=== PATIENT | female | born 1980 | race American Indian/Alaskan Native ===

== ENCOUNTER 2016-10-27 17:58 | Emergency (ER) | payer MEDICAID ==
[2016-10-27 22:50] LABS: Urine Drugs of Abuse Note Disclamer
--- NOTE | 2016-10-27 22:53 | Emergency Department Report ---
HPI - General Chief Complaint: Psych Time Seen by Provider: 10/27/16 22:05 - HPI HPI: [facility] The patient is a 36-year-old female presenting with a chief complaint of stress. Patient states for 1 month she has been under a lot of stress and had "a lot of family problems." The patient states she is feeling pressure and feels like she is being bullied. Patient was recently sent to an inpatient psychiatric facility under [facility] for suicidal ideation. The patient was discharged and reportedly went back to live with her boyfriend subsequently kicked her out. Patient currently denies suicidal ideation. Patient denies auditory or visual hallucinations. Location: Mental state Duration: [see above] Quality: Stress Severity: Moderate Modifying factors: [see above] Context: [see above] Mode of transportation: [not driving] ED Past Medical Hx - Past Medical History Previous Medical History?: No Hx Psychiatric Treatment: Yes (PTSD, BIPOLAR, ADHD,anxiety) Hx Asthma: Yes (seasonal) - Surgical History Past Surgical History?: No Additional Surgical History: D&C. breast implants. wisdom teeth removed - Family History Family history: no significant - Social History Smoking Status: Never Smoker Substance Use Type: None - Medications Home Medications: Home Medications Medication Instructions Recorded Confirmed Last Taken Type QUEtiapine [SEROquel] 200 mg PO QHS MDD 400 09/05/16 10/14/16 10/13/16 History Efavirenz/Emtricitab/Tenofovir 600 mg PO QDAY 10/14/16 10/14/16 10/13/16 History [Atripla Tablet] Ibuprofen [Advil 100 MG tab] 200 mg PO QHS PRN 10/14/16 10/14/16 10/13/16 History Prednisone [predniSONE 5 mg (6-Day 5 mg PO .TAPER 10/14/16 10/14/16 10/13/16 History Pack, 21 Tabs)] ED Review of Systems ROS: Stated complaint: HOMICIDAL Other details as noted in HPI Comment: All other systems reviewed and negative Constitutional: denies: chills, fever Eyes: denies: eye pain, eye discharge, vision change ENT: denies: ear pain, throat pain Respiratory: denies: cough, shortness of breath, wheezing Cardiovascular: denies: chest pain, palpitations Endocrine: no symptoms reported Gastrointestinal: denies: abdominal pain, nausea, diarrhea Genitourinary: denies: urgency, dysuria, discharge Musculoskeletal: denies: back pain, joint swelling, arthralgia Skin: denies: rash, lesions Neurological: denies: headache, weakness, paresthesias Psychiatric: other (stress). denies: auditory hallucinations, visual hallucinations, suicidal thoughts Hematological/Lymphatic: denies: easy bleeding, easy bruising Physical Exam - Physical Exam Vital Signs: Vital Signs 10/27/16 10/27/16 18:08 19:43 Temperature 98.6 F 98 F Pulse Rate 110 H 102 H Respiratory 22 14 Rate Blood Pressure 162/104 Blood Pressure 131/89 [Left] O2 Sat by Pulse 99 99 Oximetry Physical Exam: GENERAL: The patient is well-developed well-nourished female sitting in chair not appearing to be in acute distress. [] HEENT: Normocephalic. Atraumatic. Extraocular motions are intact. Patient has moist mucous membranes. NECK: Supple. Trachea Midline CHEST/LUNGS: Clear to auscultation. There is no respiratory distress noted. HEART/CARDIOVASCULAR: Regular. There is no tachycardia. There is no gallop rub or murmur. ABDOMEN: Abdomen is soft, nontender. Patient has normal bowel sounds. There is no abdominal distention. SKIN: There is no rash. There is no edema. There is no diaphoresis. NEURO: The patient is awake, alert, and oriented. The patient is cooperative. The patient has normal speech MUSCULOSKELETAL: There is no evidence of acute injury. ED Course Vital Signs 10/27/16 10/27/16 18:08 19:43 Temperature 98.6 F 98 F Pulse Rate 110 H 102 H Respiratory 22 14 Rate Blood Pressure 162/104 Blood Pressure 131/89 [Left] O2 Sat by Pulse 99 99 Oximetry ED Medical Decision Making - Lab Data Result diagrams: 10/27/16 17:35 10/27/16 22:44 - Medical Decision Making The patient was seen and evaluated by mental health retail wireless sales consultant (see mental health assessors note). Patient does not meet inpatient criteria and is currently without suicidal ideation. The patient's main concern is her homelessness. Awaiting social work consult. Final dispo per social work - Differential Diagnosis stress Critical care attestation.: If time is entered above; I have spent that time in minutes in the direct care of this critically ill patient, excluding procedure time. ED Disposition Clinical Impression: Stress, Homelessness Disposition: DISCHARGED TO HOME OR SELFCARE Is pt being admited?: No Does the pt Need Aspirin: No Condition: Stable Referrals: PRIMARY CARE,MD [Primary Care Provider] - 3-5 Days Time of Disposition: 04:49 (dispo per Social Work)
[2016-10-27 22:59] LABS: Basophils % (Auto) 0.3 % (0.0-1.8); Eosinophils % (Auto) 0.9 % (0.0-4.3); Hematocrit 33.4 % (30.3-42.9); Mean Corpuscular HGB Conc 33 % (30-34); Mean Corpuscular Volume 78 fl (79-97); Platelet Count 393 K/mm3 (140-440); Red Blood Count 4.29 M/mm3 (3.65-5.03); Red Cell Distribution Width 15.9 % (13.2-15.2); White Blood Count 7.5 K/mm3 (4.5-11.0)
[2016-10-27 22:59] LABS: Bilirubin,Urine NEG (Negative); Blood,Urine NEG (Negative); Ketones,Urine NEG (Negative); Leukocyte Esterase,Urine NEG (Negative); Nitrite,Urine NEG (Negative); Protein,Urine <15 mg/dL mg/dL (Negative); RBC,Urine < 1.0 /HPF (0.0-6.0); Urobilinogen,Urine < 2.0 mg/dL (<2.0)
[2016-10-27 23:01] LABS: Mean Corpuscular Hemoglobin 26 pg (28-32)
[2016-10-27 23:18] LABS: BUN/Creatinine Ratio 12.85; Blood Urea Nitrogen 9 mg/dL (7-17); Carbon Dioxide 24 mmol/L (22-30); Chloride 97.4 mmol/L (98-107); Glucose 101 mg/dL (65-100); Potassium 3.5 mmol/L (3.6-5.0); Sodium 137 mmol/L (137-145)
[2016-10-27 23:41] LABS: Anion Gap 19 mmol/L
[2016-10-28] MEDS ORDERED: VISTARIL ONE (02:02)
[2016-10-28] MEDS ORDERED: VISTARIL PO ONE (02:08)
[2016-10-28 07:59] VITALS: BP 101/52
== END 2016-10-28 21:09 | disposition home or self-care (01) ==
LOC: EEVIPCON 17:58 → ED 17:58
DX: F43.9 Reaction to severe stress, unspecified (principal); Z59.0 Homelessness; F31.9 Bipolar disorder, unspecified; F41.9 Anxiety disorder, unspecified; J45.909 Unspecified asthma, uncomplicated
CPT/HCPCS: 36415; 80048; 80307; 81001; 81025; 85025; 99284; G0480; 80320; Q0177

== ENCOUNTER 2016-11-01 16:30 | Emergency (ER) | payer MEDICAID ==
--- NOTE | 2016-11-01 17:31 | Emergency Department Report ---
Chief Complaint: Anxiety Stated Complaint: SOB Time Seen by Provider: 11/01/16 17:29 - HPI History of Present Illness: 36 y/o female with history of bipolar is her because of anxiety . She denies any suicidal homicidal ideation. Patient states she is needed a medical evaluation because of her bipolar has her depressed. - ROS Review of Systems: per HPI - Exam Vital Signs: Vital Signs 11/01/16 17:17 Temperature 98.2 F Pulse Rate 112 H Respiratory 20 Rate Blood Pressure 141/93 O2 Sat by Pulse 97 Oximetry Physical Exam: GENERAL: The patient is well-developed and well-nourished. Patient is in NAD. HENT: Normocephalic. Atraumatic. Patient has moist mucous membranes. Throat: No erythema, swelling or exudates. EYES: Extraocular motions are intact, PERRL NECK: Supple. No meningitic signs are noted. There is no adenopathy noted. CHEST/LUNGS: Clear to auscultation bilaterally. No wheezing, rales or rhonchi noted. There is no respiratory distress noted. HEART/CARDIOVASCULAR: Regular rate and rhythm. Normal S1 S2. No murmurs, rubs , clicks, or gallops. ABDOMEN: Abdomen is soft, nontender.. Bowel sounds normoactive. There is no abdominal distention. Negative rebound tenderness. : Deferred. SKIN: There is no rash. There is no edema. There is no diaphoresis. NEURO: The patient is A&Ox3. The patient has no focal neurologic deficits. MUSCULOSKELETAL: There is no tenderness or deformity. There is no limitation range of motion. PSYCH: Pt has appropriate mood and affect. MSE screening note: Focused history and physical exam performed. Due to findings the following was ordered: ED Disposition for MSE Condition: Stable
[2016-11-01 18:34] LABS: Basophils % (Auto) 0.5 % (0.0-1.8); Eosinophils % (Auto) 0.6 % (0.0-4.3); Hematocrit 34.1 % (30.3-42.9); Hemoglobin 11.1 gm/dl (10.1-14.3); Mean Corpuscular HGB Conc 33 % (30-34); Mean Corpuscular Volume 78 fl (79-97); Platelet Count 430 K/mm3 (140-440); Red Blood Count 4.36 M/mm3 (3.65-5.03); Red Cell Distribution Width 16.3 % (13.2-15.2); White Blood Count 8.3 K/mm3 (4.5-11.0)
[2016-11-01 18:37] LABS: Mean Corpuscular Hemoglobin 25 pg (28-32)
[2016-11-01 18:55] LABS: BUN/Creatinine Ratio 12.85; Blood Urea Nitrogen 9 mg/dL (7-17); Calcium 9.1 mg/dL (8.4-10.2); Carbon Dioxide 24 mmol/L (22-30); Chloride 98.6 mmol/L (98-107); Glucose 110 mg/dL (65-100); Potassium 3.5 mmol/L (3.6-5.0); Sodium 137 mmol/L (137-145)
[2016-11-01 18:57] LABS: Anion Gap 18 mmol/L
[2016-11-02 08:00] VITALS: BP 145/90
[2016-11-02 08:01] LABS: Urine Drugs of Abuse Note Disclamer
[2016-11-02 08:17] LABS: Bilirubin,Urine NEG (Negative); Blood,Urine NEG (Negative); Ketones,Urine 20 mg/dL (Negative); Leukocyte Esterase,Urine NEG (Negative); Mucus,Urine FEW /HPF; Nitrite,Urine NEG (Negative); Protein,Urine <15 mg/dL mg/dL (Negative); Urobilinogen,Urine < 2.0 mg/dL (<2.0); WBC,Urine < 1.0 /HPF (0.0-6.0)
--- NOTE | 2016-11-02 08:32 | Emergency Department Report ---
HPI - General Chief Complaint: Anxiety Time Seen by Provider: 11/02/16 08:12 - HPI HPI: Room 3 The patient is a 36-year-old female presenting with a chief complaint of anxiety and homelessness. The patient was seen by myself on her last ED visit 10/27/2016. The patient was sent to a fci[facility]facility because of her homelessness. The patient states "I wouldn't send an animal to the place." When asked why she came to the emergency department today the patient states "umm......because it seems like people be joking with me and playing with me. It aint a joke." Location: Mental state Duration: see above Quality: Homelessness Severity: Moderate Modifying factors: see above Context: see above Mode of transportation: not driving ED Past Medical Hx - Past Medical History Previous Medical History?: Yes Hx Psychiatric Treatment: Yes (PTSD, BIPOLAR, ADHD,anxiety) Hx Asthma: Yes (seasonal) Hx HIV: Yes - Surgical History Past Surgical History?: Yes Additional Surgical History: D&C. breast implants. wisdom teeth removed - Family History Family history: no significant - Social History Smoking Status: Never Smoker Substance Use Type: Prescribed - Medications Home Medications: Home Medications Medication Instructions Recorded Confirmed Last Taken Type QUEtiapine [SEROquel] 200 mg PO QHS MDD 400 09/05/16 10/14/16 10/13/16 History Efavirenz/Emtricitab/Tenofovir 600 mg PO QDAY 10/14/16 10/14/16 10/13/16 History [Atripla Tablet] Ibuprofen [Advil 100 MG tab] 200 mg PO QHS PRN 10/14/16 10/14/16 10/13/16 History Prednisone [predniSONE 5 mg (6-Day 5 mg PO .TAPER 10/14/16 10/14/16 10/13/16 History Pack, 21 Tabs)] ED Review of Systems ROS: Stated complaint: SOB Other details as noted in HPI Comment: All other systems reviewed and negative Constitutional: denies: chills, fever Eyes: denies: eye pain, eye discharge, vision change ENT: denies: ear pain, throat pain Respiratory: denies: cough, shortness of breath, wheezing Cardiovascular: denies: chest pain, palpitations Endocrine: no symptoms reported Gastrointestinal: denies: abdominal pain, nausea, diarrhea Genitourinary: denies: urgency, dysuria, discharge Musculoskeletal: denies: back pain, joint swelling, arthralgia Skin: denies: rash, lesions Psychiatric: anxiety Hematological/Lymphatic: denies: easy bleeding, easy bruising Physical Exam - Physical Exam Vital Signs: Vital Signs 11/01/16 11/02/16 11/02/16 17:17 03:17 07:48 Temperature 98.2 F 97.4 F L 98.9 F Pulse Rate 112 H 112 H 113 H Respiratory 20 18 18 Rate Blood Pressure 141/93 144/94 152/87 Blood Pressure [Left] O2 Sat by Pulse 97 100 95 Oximetry 11/02/16 11/02/16 07:57 07:58 Temperature 98.3 F 98 F Pulse Rate 79 51 L Respiratory 16 20 Rate Blood Pressure 162/86 Blood Pressure 145/90 [Left] O2 Sat by Pulse 99 98 Oximetry Physical Exam: GENERAL: The patient is well-developed well-nourished female sitting on a bed not appearing to be in acute distress. [] HEENT: Normocephalic. Atraumatic. Extraocular motions are intact. Patient has moist mucous membranes. NECK: Supple. No meningitic signs are noted. Trachea midline CHEST/LUNGS: Clear to auscultation. There is no respiratory distress noted. HEART/CARDIOVASCULAR: Regular. There is no tachycardia. There is no gallop rub or murmur. ABDOMEN: Abdomen is soft, nontender. Patient has normal bowel sounds. There is no abdominal distention. SKIN: There is no rash. There is no edema. There is no diaphoresis. NEURO: The patient is awake, alert, and oriented. The patient is cooperative. The patient has normal speech MUSCULOSKELETAL: There is no evidence of acute injury. ED Course Vital Signs 11/01/16 11/02/16 11/02/16 17:17 03:17 07:48 Temperature 98.2 F 97.4 F L 98.9 F Pulse Rate 112 H 112 H 113 H Respiratory 20 18 18 Rate Blood Pressure 141/93 144/94 152/87 Blood Pressure [Left] O2 Sat by Pulse 97 100 95 Oximetry 11/02/16 11/02/16 07:57 07:58 Temperature 98.3 F 98 F Pulse Rate 79 51 L Respiratory 16 20 Rate Blood Pressure 162/86 Blood Pressure 145/90 [Left] O2 Sat by Pulse 99 98 Oximetry - Consultations Consultation #1: 11/02/16 10:32 Case discussed with mental health financial planning consultant-patient does not meet inpatient criteria Consultation #2: 11/02/16 10:32 Case discussed with school social worker-patient is willing to go to Housing facility she was sent to previously ED Medical Decision Making - Lab Data Result diagrams: 11/01/16 18:25 11/01/16 18:25 Laboratory Tests 11/01/16 11/01/16 11/01/16 18:25 18:25 18:25 WBC 8.3 RBC 4.36 Hgb 11.1 Hct 34.1 MCV 78 L MCH 25 L MCHC 33 RDW 16.3 H Plt Count 430 Lymph % (Auto) 22.2 [place] % (Auto) 13.1 H Eos % (Auto) 0.6 Baso % (Auto) 0.5 Lymph # 1.8 [place] # 1.1 H Eos # 0.1 Baso # 0.0 Seg Neutrophils % 63.6 Seg Neutrophils # 5.3 Sodium 137 Potassium 3.5 L Chloride 98.6 Carbon Dioxide 24 Anion Gap 18 BUN 9 Creatinine 0.7 Estimated GFR > 60 BUN/Creatinine Ratio 12.85 Glucose 110 H Calcium 9.1 HCG, Quant Urine Color Urine Turbidity Urine pH Ur Specific [place] Urine Protein Urine Glucose (UA) Urine Ketones Urine Blood Urine Nitrite Urine Bilirubin Urine Urobilinogen Ur Leukocyte Esterase Urine WBC (Auto) Urine RBC (Auto) U Epithel Cells (Auto) Urine Mucus Ur Amphetamines Screen Plasma/Serum Alcohol < 0.01 11/01/16 11/02/16 11/02/16 18:25 07:58 07:58 WBC RBC Hgb Hct MCV MCH MCHC RDW Plt Count Lymph % (Auto) [place] % (Auto) Eos % (Auto) Baso % (Auto) Lymph # [place] # Eos # Baso # Seg Neutrophils % Seg Neutrophils # Sodium Potassium Chloride Carbon Dioxide Anion Gap BUN Creatinine Estimated GFR BUN/Creatinine Ratio Glucose Calcium HCG, Quant < 2 Urine Color Yellow Urine Turbidity Clear Urine pH 5.0 Ur Specific [place] 1.019 Urine Protein <15 mg/dl Urine Glucose (UA) Neg Urine Ketones 20 Urine Blood Neg Urine Nitrite Neg Urine Bilirubin Neg Urine Urobilinogen < 2.0 Ur Leukocyte Esterase Neg Urine WBC (Auto) < 1.0 Urine RBC (Auto) 1.0 U Epithel Cells (Auto) 1.0 Urine Mucus Few Ur Amphetamines Screen Presumptive positive Plasma/Serum Alcohol - Differential Diagnosis homelessness Critical care attestation.: If time is entered above; I have spent that time in minutes in the direct care of this critically ill patient, excluding procedure time. ED Disposition Clinical Impression: Homeless Disposition: DISCHARGED TO HOME OR SELFCARE Is pt being admited?: No Does the pt Need Aspirin: No Condition: Stable Referrals: PRIMARY CARE, [Primary Care Provider] - 3-5 Days Time of Disposition: 08:32 (awaiting school social worker dispo)
== END 2016-11-02 10:40 | disposition home or self-care (01) ==
LOC: ED 16:30
DX: F41.9 Anxiety disorder, unspecified (principal); Z95.0 Presence of cardiac pacemaker; F32.9 Major depressive disorder, single episode, unspecified; F90.9 Attention-deficit hyperactivity disorder, unspecified type; J45.909 Unspecified asthma, uncomplicated; Z21 Asymptomatic human immunodeficiency virus [HIV] infection status; Z88.8 Allergy status to other drugs, medicaments and biological substances
CPT/HCPCS: 36415; 80048; 80307; 81001; 84702; 85025; 99284; G0480; 80320

== ENCOUNTER 2017-06-19 12:19 | Emergency (ER) | payer MEDICAID ==
[2017-06-19 12:27] VITALS: BP 121/65
[2017-06-19 12:55] LABS: Basophils % (Auto) 0.5 % (0.0-1.8); Eosinophils % (Auto) 2.3 % (0.0-4.3); Hematocrit 31.7 % (30.3-42.9); Mean Corpuscular HGB Conc 32 % (30-34); Mean Corpuscular Volume 78 fl (79-97); Platelet Count 393 K/mm3 (140-440); Red Blood Count 4.09 M/mm3 (3.65-5.03); Red Cell Distribution Width 18.3 % (13.2-15.2); White Blood Count 5.9 K/mm3 (4.5-11.0)
[2017-06-19 13:05] LABS: Mean Corpuscular Hemoglobin 24 pg (28-32)
[2017-06-19 13:08] LABS: Anion Gap 16 mmol/L; BUN/Creatinine Ratio 23.33; Blood Urea Nitrogen 14 mg/dL (7-17); Calcium 8.7 mg/dL (8.4-10.2); Carbon Dioxide 25 mmol/L (22-30); Chloride 103.6 mmol/L (98-107); Glucose 75 mg/dL (65-100); Potassium 3.9 mmol/L (3.6-5.0); Sodium 141 mmol/L (137-145)
--- NOTE | 2017-06-23 00:15 | ED Elopement Review ---
ED Pt Elopement review - Results review Lab results: Laboratory Tests 06/19/17 06/19/17 06/19/17 12:32 12:32 12:32 WBC RBC Hgb Hct MCV MCH MCHC RDW Plt Count Lymph % (Auto) [place] % (Auto) Eos % (Auto) Baso % (Auto) Lymph # [place] # Eos # Baso # Seg Neutrophils % Seg Neutrophils # Sodium 141 Potassium 3.9 Chloride 103.6 Carbon Dioxide 25 Anion Gap 16 BUN 14 Creatinine 0.6 L Estimated GFR > 60 BUN/Creatinine Ratio 23.33 Glucose 75 Calcium 8.7 HCG, Qual Negative Plasma/Serum Alcohol < 0.01 06/19/17 12:32 WBC 5.9 RBC 4.09 Hgb 10.0 L Hct 31.7 MCV 78 L MCH 24 L MCHC 32 RDW 18.3 H Plt Count 393 Lymph % (Auto) 35.2 H [place] % (Auto) 10.7 H Eos % (Auto) 2.3 Baso % (Auto) 0.5 Lymph # 2.1 [place] # 0.6 Eos # 0.1 Baso # 0.0 Seg Neutrophils % 51.3 Seg Neutrophils # 3.0 Sodium Potassium Chloride Carbon Dioxide Anion Gap BUN Creatinine Estimated GFR BUN/Creatinine Ratio Glucose Calcium HCG, Qual Plasma/Serum Alcohol - Call Back decision Pt Call Back Decision: Pt to F/U with PMD
== END 2017-06-20 01:00 | disposition left against medical advice (07) ==
LOC: ED 12:19
DX: M79.89 Other specified soft tissue disorders (principal); Z53.21 Procedure and treatment not carried out due to patient leaving prior to being seen by health care provider
CPT/HCPCS: 36415; 80048; 84703; 85025; G0480; 80320

== ENCOUNTER 2017-08-30 09:57 | Emergency (ER) | payer MEDICAID ==
[2017-08-30 10:05] VITALS: BP 139/84
[2017-08-30] MEDS ORDERED: DELTASONE PO ONE (11:18)
[2017-08-30] MEDS ORDERED: BENADRYL PO ONE (11:18)
--- NOTE | 2017-08-30 11:19 | Emergency Department Report ---
HPI - General Chief Complaint: Allergic Reaction Time Seen by Provider: 08/30/17 11:15 - HPI HPI: Patient is a 37-year-old female presents to the ED complaining of an allergic reaction to something she can contact her. Patient states she also has on her hand and the the back of her neck that she noticed today. Patient states she is also having pain at the site where it itches. Patient does not recall, to contact with any sick contacts. She denies fevers/chills/nausea/vomiting/abdominal pain chest pain or any other problems ED Past Medical Hx - Past Medical History Previous Medical History?: Yes Hx Psychiatric Treatment: Yes (PTSD, BIPOLAR, ADHD,anxiety) Hx Asthma: Yes (seasonal) Hx HIV: Yes - Surgical History Past Surgical History?: Yes Additional Surgical History: D&C. breast implants. wisdom teeth removed - Social History Smoking Status: Former Smoker Substance Use Type: Alcohol, Marijuana, Prescribed - Medications Home Medications: Home Medications Medication Instructions Recorded Confirmed Last Taken Type QUEtiapine [SEROquel] 200 mg PO QHS MDD 400 09/05/16 10/14/16 10/13/16 History Efavirenz/Emtricitab/Tenofovir 600 mg PO QDAY 10/14/16 10/14/16 10/13/16 History [Atripla Tablet] Ibuprofen [Advil 100 MG tab] 200 mg PO QHS PRN 10/14/16 10/14/16 10/13/16 History Prednisone [predniSONE 5 mg (6-Day 5 mg PO .TAPER 10/14/16 10/14/16 10/13/16 History Pack, 21 Tabs)] Ibuprofen [Motrin] 600 mg PO Q8H PRN #30 tablet 08/30/17 Unknown Rx Triamcinolone 0.1% [Kenalog 0.1% 1 applic TP TID #1 tube 08/30/17 Unknown Rx OINT] diphenhydrAMINE [Benadryl CAP] 25 mg PO QHS PRN #20 capsule 08/30/17 Unknown Rx ED Review of Systems ROS: Stated complaint: SORE THROAT,HIVES Other details as noted in HPI Constitutional: denies: chills, fever Eyes: denies: eye pain, eye discharge, vision change ENT: denies: ear pain, throat pain Respiratory: denies: cough, shortness of breath, wheezing Cardiovascular: denies: chest pain, palpitations Endocrine: no symptoms reported Gastrointestinal: denies: abdominal pain, nausea, diarrhea Genitourinary: denies: urgency, dysuria, discharge Musculoskeletal: denies: back pain, joint swelling, arthralgia Skin: pruritus. denies: rash, lesions Neurological: denies: headache, weakness, numbness, paresthesias, confusion Psychiatric: denies: anxiety, depression Hematological/Lymphatic: denies: easy bleeding, easy bruising Physical Exam - Physical Exam Vital Signs: Vital Signs 08/30/17 10:00 Temperature 97.9 F Pulse Rate 75 Respiratory 20 Rate Blood Pressure 139/84 O2 Sat by Pulse 100 Oximetry Physical Exam: GENERAL: Alert and oriented x3, no apparent distress, Normal Gait, atraumatic. HEAD: Head is normocephalic and a-traumatic. EYES: Extra ocular muscles are intact. Pupils are equal, round, and reactive to light and accommodation. EARS: symetrical, atraumatic, non tender, ear canal clear and moderate cerumen, tympanic membrance non inflamed. gross auditory nml bilaterally. NOSE: Nose symetrical, Nontender,Nares appeared normal. MOUTH:Mouth is well hydrated and without lesions. Tonsils nonerythematous or swollen, Uvula midline, Tongue not elevated. Mucous membranes are moist. Posterior pharynx clear, no exudate or lesions. Patent airways. NECK: Supple. Non edematous, No carotid bruits. No lymphadenopathy or thyromegaly. No C-spine tenderness LUNGS: Symetrical with respiration, No wheezing, no rales or crackles, CTAB. HEART: S1, S2 present, regular rate and rhythm without murmur, no rubs, no gallops. Non tender to palpation PSYCHIATRIC: Mood is congruent with affect, denies suicidal or homicidal ideations. SKIN: Warm and dry, occipital raised erythematous insect bite on the back of the neck left side. One raised erythematous lesion consistent with bite talat on left anterior foot No lesions, No ulceration or induration present. ED Course Vital Signs 08/30/17 10:00 Temperature 97.9 F Pulse Rate 75 Respiratory 20 Rate Blood Pressure 139/84 O2 Sat by Pulse 100 Oximetry ED Medical Decision Making - Medical Decision Making 37 year-old female presents with insect bite Patient received Toradol for pain, prednisone. Then the joint during her ED stay I discussed the patient to check bed and wash all sheets. I discussed patient to use medication as prescribed. Patient states she understands instructions given. Discussed the patient have any worsening symptoms or if any new symptoms to please return to the ED immediately. Critical care attestation.: If time is entered above; I have spent that time in minutes in the direct care of this critically ill patient, excluding procedure time. ED Disposition Clinical Impression: Insect bites Qualifiers: Encounter type: initial encounter Qualified Code(s): W57.XXXA - Bitten or stung by nonvenomous insect and other nonvenomous arthropods, initial encounter Disposition: TO HOME OR SELFCARE Is pt being admited?: No Does the pt Need Aspirin: No Condition: Stable Instructions: Urticaria (ED), Insect Bite or Sting (ED) Additional Instructions: apply ointment to affected areas. Follow-up with primary care physician as referred. If symptoms worsen please return to ED Prescriptions: diphenhydrAMINE [Benadryl CAP] 25 mg PO QHS PRN #20 capsule PRN Reason: Pain Ibuprofen [Motrin] 600 mg PO Q8H PRN #30 tablet PRN Reason: Pain Triamcinolone 0.1% [Kenalog 0.1% OINT] 1 applic TP TID #1 tube Referrals: PRIMARY CARE,MD [Primary Care Provider] - 3-5 Days [facility] [Outside] - 3-5 Days [facility] [Outside] - 3-5 Days [facility] [Outside] - 3-5 Days Forms: Accompanied Note, Work/School Release Form(ED) Time of Disposition: 13:00
[2017-08-30 11:54] LABS: Urine Drugs of Abuse Note Disclamer
[2017-08-30] MEDS ORDERED: TORADOL IM ONE (13:06)
== END 2017-08-30 13:33 | disposition home or self-care (01) ==
LOC: ED 09:57
DX: T78.40XA Allergy, unspecified, initial encounter (principal); F12.10 Cannabis abuse, uncomplicated; W57.XXXA Bitten or stung by nonvenomous insect and other nonvenomous arthropods, initial encounter; Y93.89 Activity, other specified; Y92.89 Other specified places as the place of occurrence of the external cause; Y99.8 Other external cause status
CPT/HCPCS: 80307; 81025; 96372; 99283; J1885; J7512

== ENCOUNTER 2017-08-30 21:43 | Emergency (ER) | payer MEDICAID ==
[2017-08-30 23:50] LABS: Anion Gap 24 mmol/L; BUN/Creatinine Ratio 13; Blood Urea Nitrogen 8 mg/dL (7-17); Carbon Dioxide 20 mmol/L (22-30); Chloride 101.7 mmol/L (98-107); Glucose 213 mg/dL (65-100); Potassium 4.2 mmol/L (3.6-5.0); Sodium 141 mmol/L (137-145)
[2017-08-31 00:06] LABS: Eosinophils % (Auto) 0.1 % (0.0-4.3)
[2017-08-31 00:11] LABS: Basophils % (Auto) 0.1 % (0.0-1.8); Hematocrit 35.3 % (30.3-42.9); Mean Corpuscular HGB Conc 31 % (30-34); Mean Corpuscular Hemoglobin 25 pg (28-32); Mean Corpuscular Volume 79 fl (79-97); Platelet Count 287 K/mm3 (140-440); Red Blood Count 4.47 M/mm3 (3.65-5.03); Red Cell Distribution Width 20.6 % (13.2-15.2); White Blood Count 8.9 K/mm3 (4.5-11.0)
[2017-08-31 06:39] VITALS: BP 102/51
[2017-08-31] MEDS ORDERED: LIDOCAINE VISCOUS 2% PO ONE (07:42)
[2017-08-31] MEDS ORDERED: ALUM-MAG HYDROX-SIMETH 200-200-20MG/5ML PO ONE (07:43)
[2017-08-31] MEDS ORDERED: ATARAX PO ONE (07:43)
--- NOTE | 2017-08-31 07:43 | Emergency Department Report ---
ED General Adult HPI - General Chief complaint: Dyspnea/Respdistress Stated complaint: SOB Time Seen by Provider: 08/31/17 07:35 Source: patient Mode of arrival: Stretcher Limitations: No Limitations - History of Present Illness Initial comments: Patient is a 37-year-old female past medical history schizophrenia who presents with chest pain and throat discomfort. Patient states that symptoms have been going on for the last couple of days. Patient's feels that she has some irritation in her throat and the pain is a 6 out of 10 shortly makes it worse nothing makes it better. She denies having any drooling. Patient denies having any trouble breathing. Patient states that her chest pain feels like someone jumping up and down her chest is located in the middle of her chest does not radiate. Patient denies any nausea or vomiting. She states that she' s had this problem before in the past. She has no significant family medical history Severity scale (0 -10): 10 - Related Data Home Medications Medication Instructions Recorded Confirmed Last Taken QUEtiapine [SEROquel] 200 mg PO QHS MDD 400 09/05/16 10/14/16 10/13/16 Efavirenz/Emtricitab/Tenofovir 600 mg PO QDAY 10/14/16 10/14/16 10/13/16 [Atripla Tablet] Ibuprofen [Advil 100 MG tab] 200 mg PO QHS PRN 10/14/16 10/14/16 10/13/16 Prednisone [predniSONE 5 mg (6-Day 5 mg PO .TAPER 10/14/16 10/14/16 10/13/16 Pack, 21 Tabs)] Previous Rx's Medication Instructions Recorded Last Taken Type Ibuprofen [Motrin] 600 mg PO Q8H PRN #30 tablet 08/30/17 Unknown Rx Triamcinolone 0.1% [Kenalog 0.1% 1 applic TP TID #1 tube 08/30/17 Unknown Rx OINT] diphenhydrAMINE [Benadryl CAP] 25 mg PO QHS PRN #20 capsule 08/30/17 Unknown Rx Naproxen 250 mg PO Q6HR #30 tablet 08/31/17 Unknown Rx Allergies Allergy/AdvReac Type Severity Reaction Status Date / Time influenza virus vaccine, Allergy Swelling Verified 08/31/17 07:55 specific [Influenza Virus Vacc,Specific] Sulfa (Sulfonamide Allergy Swelling Verified 08/31/17 07:55 Antibiotics) sulfamethoxazole Allergy Swelling Verified 08/31/17 07:55 [From Bactrim] trimethoprim [From Bactrim] Allergy Swelling Verified 08/31/17 07:55 ED Review of Systems ROS: Stated complaint: SOB Other details as noted in HPI Constitutional: denies: chills, fever Eyes: denies: eye pain, eye discharge, vision change ENT: throat pain. denies: ear pain Respiratory: denies: cough, shortness of breath, wheezing Cardiovascular: chest pain. denies: palpitations Endocrine: no symptoms reported Gastrointestinal: denies: abdominal pain, nausea, diarrhea Genitourinary: denies: urgency, dysuria, discharge Musculoskeletal: denies: back pain, joint swelling, arthralgia Skin: denies: rash, lesions Neurological: denies: headache, weakness, paresthesias Psychiatric: denies: anxiety, depression Hematological/Lymphatic: denies: easy bleeding, easy bruising ED Past Medical Hx - Past Medical History Previous Medical History?: Yes Hx Psychiatric Treatment: Yes (PTSD, BIPOLAR, ADHD,anxiety) Hx Asthma: Yes (seasonal) Hx HIV: Yes - Surgical History Past Surgical History?: Yes Additional Surgical History: D&C. breast implants. wisdom teeth removed - Social History Smoking Status: Never Smoker - Medications Home Medications: Home Medications Medication Instructions Recorded Confirmed Last Taken Type QUEtiapine [SEROquel] 200 mg PO QHS MDD 400 09/05/16 10/14/16 10/13/16 History Efavirenz/Emtricitab/Tenofovir 600 mg PO QDAY 10/14/16 10/14/16 10/13/16 History [Atripla Tablet] Ibuprofen [Advil 100 MG tab] 200 mg PO QHS PRN 10/14/16 10/14/16 10/13/16 History Prednisone [predniSONE 5 mg (6-Day 5 mg PO .TAPER 10/14/16 10/14/16 10/13/16 History Pack, 21 Tabs)] Ibuprofen [Motrin] 600 mg PO Q8H PRN #30 tablet 08/30/17 Unknown Rx Triamcinolone 0.1% [Kenalog 0.1% 1 applic TP TID #1 tube 08/30/17 Unknown Rx OINT] diphenhydrAMINE [Benadryl CAP] 25 mg PO QHS PRN #20 capsule 08/30/17 Unknown Rx Naproxen 250 mg PO Q6HR #30 tablet 08/31/17 Unknown Rx ED Physical Exam - General Limitations: No Limitations General appearance: alert, in no apparent distress - Head Head exam: Present: atraumatic, normocephalic - Eye Eye exam: Present: normal appearance - ENT ENT exam: Present: mucous membranes moist - Neck Neck exam: Present: normal inspection - Respiratory Respiratory exam: Present: normal lung sounds bilaterally. Absent: respiratory distress - Cardiovascular Cardiovascular Exam: Present: regular rate, normal rhythm. Absent: systolic murmur, diastolic murmur, rubs, gallop - GI/Abdominal GI/Abdominal exam: Present: soft, normal bowel sounds - Extremities Exam Extremities exam: Present: normal inspection - Back Exam Back exam: Present: normal inspection - Neurological Exam Neurological exam: Present: alert, oriented X3 - Psychiatric Psychiatric exam: Present: normal affect, normal mood - Skin Skin exam: Present: warm, dry, intact, normal color. Absent: rash ED Course Vital Signs 08/30/17 08/31/17 08/31/17 22:20 02:46 03:00 Temperature 98.7 F Pulse Rate 103 H Respiratory 20 Rate Blood Pressure 128/68 129/73 O2 Sat by Pulse 100 87 100 Oximetry 08/31/17 08/31/17 08/31/17 03:16 03:30 03:46 Temperature Pulse Rate Respiratory Rate Blood Pressure 129/73 129/73 129/73 O2 Sat by Pulse 97 100 100 Oximetry 08/31/17 08/31/17 08/31/17 04:00 04:16 04:30 Temperature Pulse Rate Respiratory Rate Blood Pressure 102/51 102/51 102/51 O2 Sat by Pulse 100 100 100 Oximetry 08/31/17 08/31/17 08/31/17 04:46 05:00 05:16 Temperature Pulse Rate Respiratory Rate Blood Pressure 102/51 102/51 102/51 O2 Sat by Pulse 100 100 100 Oximetry 08/31/17 08/31/17 08/31/17 05:30 05:46 06:00 Temperature Pulse Rate Respiratory Rate Blood Pressure 102/51 102/51 102/51 O2 Sat by Pulse 100 99 99 Oximetry 08/31/17 08/31/17 08/31/17 06:16 06:17 06:30 Temperature Pulse Rate Respiratory 20 Rate Blood Pressure 102/51 102/51 O2 Sat by Pulse 99 100 96 Oximetry 08/31/17 08/31/17 08/31/17 06:46 07:00 07:16 Temperature Pulse Rate Respiratory Rate Blood Pressure 102/51 102/51 102/51 O2 Sat by Pulse 100 99 97 Oximetry 08/31/17 08/31/17 07:30 07:38 Temperature 98.5 F Pulse Rate Respiratory Rate Blood Pressure 102/51 O2 Sat by Pulse 98 Oximetry ED Medical Decision Making - Lab Data Result diagrams: 08/30/17 23:11 08/30/17 23:11 Lab Results 08/30/17 08/30/17 08/30/17 Range/Units 23:11 23:11 23:11 WBC 8.9 (4.5-11.0) K/mm3 RBC 4.47 (3.65-5.03) M/mm3 Hgb 11.0 (10.1-14.3) gm/dl Hct 35.3 (30.3-42.9) % MCV 79 (79-97) fl MCH 25 L (28-32) pg MCHC 31 (30-34) % RDW 20.6 H (13.2-15.2) % Plt Count 287 (140-440) K/mm3 Lymph % (Auto) 10.2 L (13.4-35.0) % [place] % (Auto) 10.2 H (0.0-7.3) % Eos % (Auto) 0.1 (0.0-4.3) % Baso % (Auto) 0.1 (0.0-1.8) % Lymph # 0.9 L (1.2-5.4) K/mm3 [place] # 0.9 H (0.0-0.8) K/mm3 Eos # 0.0 (0.0-0.4) K/mm3 Baso # 0.0 (0.0-0.1) K/mm3 Seg Neutrophils % 79.4 H (40.0-70.0) % Seg Neutrophils # 7.0 (1.8-7.7) K/mm3 Sodium 141 (137-145) mmol/L Potassium 4.2 (3.6-5.0) mmol/L Chloride 101.7 (98-107) mmol/L Carbon Dioxide 20 L (22-30) mmol/L Anion Gap 24 mmol/L BUN 8 (7-17) mg/dL Creatinine 0.6 L (0.7-1.2) mg/dL Estimated GFR > 60 ml/min BUN/Creatinine Ratio 13 % Glucose 213 H (65-100) mg/dL Calcium 9.0 (8.4-10.2) mg/dL Troponin T < 0.010 (0.00-0.029) ng/mL Plasma/Serum Alcohol < 0.01 (0-0.07) gm% - EKG Data 08/31/17 10:31 EKG shows sinus tachycardia rate 107 ST segment elevation no T-wave inversion no axis deviation. - Radiology Data Radiology results: report reviewed, image reviewed Chest x-ray: Shows no acute cardiopulmonary findings - Medical Decision Making Cdx: GERD Ddx: Non-STEMI, pancreatitis, viral pharyngitis I will get chest x-ray, EKG, CBC, CMP, troponin, oral pain medication Patient is feeling better after GI cocktail I'll send patient home with NSAIDs her laboratory findings are unremarkable. A Shantz O2 sat is 100% and heart rate is not tachycardic patient bright out and is low risk for pulmonary embolism. I will send patient home with naproxen discussed plan with patient and additional verbal discharge instructions were given. Critical care attestation.: If time is entered above; I have spent that time in minutes in the direct care of this critically ill patient, excluding procedure time. ED Disposition Clinical Impression: Throat pain, Chest wall pain Disposition: DC-01 TO HOME OR SELFCARE Is pt being admited?: No Does the pt Need Aspirin: No Condition: Stable Instructions: Chest Pain (ED) Prescriptions: Naproxen 250 mg PO Q6HR #30 tablet Referrals: REKHA ARREOLA MD [Staff Physician] - 3-5 Days
--- NOTE | 2017-08-31 07:47 | XRay Report ---
Chest 2 views: History: Shortness of breath. Findings: Normal cardiomediastinal silhouette the trachea is midline. No consolidation, pneumothorax or pleural effusion. Impression: No acute cardiopulmonary findings.
== END 2017-08-31 11:15 | disposition home or self-care (01) ==
LOC: ED 21:43
DX: R07.9 Chest pain, unspecified (principal); R07.0 Pain in throat; J45.909 Unspecified asthma, uncomplicated
CPT/HCPCS: 36415; 71020; 80048; 84484; 85025; 93005; 93010; 99284; G0480; 80320

== ENCOUNTER 2017-09-07 23:27 | Inpatient (IN) | payer MEDICAID ==
[2017-09-08 00:33] LABS: Basophils % (Auto) 0.3 % (0.0-1.8); Eosinophils % (Auto) 0.5 % (0.0-4.3); Hematocrit 37.5 % (30.3-42.9); Hemoglobin 12.3 gm/dl (10.1-14.3); Mean Corpuscular HGB Conc 33 % (30-34); Mean Corpuscular Volume 78 fl (79-97); Platelet Count 349 K/mm3 (140-440); Red Blood Count 4.81 M/mm3 (3.65-5.03); Red Cell Distribution Width 19.8 % (13.2-15.2)
[2017-09-08 00:39] LABS: Mean Corpuscular Hemoglobin 26 pg (28-32)
[2017-09-08 00:55] LABS: Anion Gap 22 mmol/L; BUN/Creatinine Ratio 20; Blood Urea Nitrogen 14 mg/dL (7-17); Calcium 9.4 mg/dL (8.4-10.2); Carbon Dioxide 22 mmol/L (22-30); Glucose 92 mg/dL (65-100); Sodium 136 mmol/L (137-145)
--- NOTE | 2017-09-08 02:13 | Emergency Department Report ---
ED General Adult HPI - General Chief complaint: Anxiety Stated complaint: DIFFICULTY BREATHING Time Seen by Provider: 09/08/17 02:09 Source: patient Mode of arrival: Ambulatory Limitations: No Limitations - History of Present Illness Initial comments: Patient is a 37-year-old female presents to the ER with complaints of being stressed out for 2 weeks and now complaining of shortness of breath and chest pain. Chest pain for progressive been intermittent but over the last 6 hours of been constant. Patient denies fever, she complains of sore throat 1 week. -: Gradual, week(s) (over 1 week) Location: chest Severity scale (0 -10): 5 Quality: aching Consistency: constant Improves with: rest Worsens with: movement Associated Symptoms: chest pain, headaches, shortness of breath, other (sore throat. Patient states she is stressed out from having to come here so often for the same symptom. ) Treatments Prior to Arrival: none - Related Data Home Medications Medication Instructions Recorded Confirmed Last Taken QUEtiapine [SEROquel] 200 mg PO QHS MDD 400 09/05/16 10/14/16 10/13/16 Efavirenz/Emtricitab/Tenofovir 600 mg PO QDAY 10/14/16 10/14/16 10/13/16 [Atripla Tablet] Ibuprofen [Advil 100 MG tab] 200 mg PO QHS PRN 10/14/16 10/14/16 10/13/16 Prednisone [predniSONE 5 mg (6-Day 5 mg PO .TAPER 10/14/16 10/14/16 10/13/16 Pack, 21 Tabs)] Previous Rx's Medication Instructions Recorded Last Taken Type Ibuprofen [Motrin] 600 mg PO Q8H PRN #30 tablet 08/30/17 Unknown Rx Triamcinolone 0.1% [Kenalog 0.1% 1 applic TP TID #1 tube 08/30/17 Unknown Rx OINT] diphenhydrAMINE [Benadryl CAP] 25 mg PO QHS PRN #20 capsule 08/30/17 Unknown Rx Naproxen 250 mg PO Q6HR #30 tablet 08/31/17 Unknown Rx Allergies Allergy/AdvReac Type Severity Reaction Status Date / Time influenza virus vaccine, Allergy Swelling Verified 08/31/17 07:55 specific [Influenza Virus Vacc,Specific] Sulfa (Sulfonamide Allergy Swelling Verified 08/31/17 07:55 Antibiotics) sulfamethoxazole Allergy Swelling Verified 08/31/17 07:55 [From Bactrim] trimethoprim [From Bactrim] Allergy Swelling Verified 08/31/17 07:55 ED Review of Systems ROS: Stated complaint: DIFFICULTY BREATHING Other details as noted in HPI Comment: All other systems reviewed and negative Constitutional: no symptoms reported Eyes: as per HPI ENT: as per HPI, throat pain Respiratory: see HPI, shortness of breath Cardiovascular: as per HPI, chest pain Endocrine: no symptoms reported Gastrointestinal: as per HPI Genitourinary: as per HPI Musculoskeletal: as per HPI Skin: as per HPI Neurological: as per HPI Psychiatric: as per HPI Hematological/Lymphatic: as per HPI ED Past Medical Hx - Past Medical History Previous Medical History?: Yes Hx Psychiatric Treatment: Yes (PTSD, BIPOLAR, ADHD,anxiety) Hx Asthma: Yes (seasonal) Hx HIV: Yes - Surgical History Past Surgical History?: Yes Additional Surgical History: D&C. breast implants. wisdom teeth removed - Social History Smoking Status: Never Smoker Substance Use Type: None - Medications Home Medications: Home Medications Medication Instructions Recorded Confirmed Last Taken Type QUEtiapine [SEROquel] 200 mg PO QHS MDD 400 09/05/16 10/14/16 10/13/16 History Efavirenz/Emtricitab/Tenofovir 600 mg PO QDAY 10/14/16 10/14/16 10/13/16 History [Atripla Tablet] Ibuprofen [Advil 100 MG tab] 200 mg PO QHS PRN 10/14/16 10/14/16 10/13/16 History Prednisone [predniSONE 5 mg (6-Day 5 mg PO .TAPER 10/14/16 10/14/16 10/13/16 History Pack, 21 Tabs)] Ibuprofen [Motrin] 600 mg PO Q8H PRN #30 tablet 08/30/17 Unknown Rx Triamcinolone 0.1% [Kenalog 0.1% 1 applic TP TID #1 tube 08/30/17 Unknown Rx OINT] diphenhydrAMINE [Benadryl CAP] 25 mg PO QHS PRN #20 capsule 08/30/17 Unknown Rx Naproxen 250 mg PO Q6HR #30 tablet 08/31/17 Unknown Rx ED Physical Exam - General Limitations: No Limitations General appearance: alert, in no apparent distress - Head Head exam: Present: atraumatic, normocephalic - Eye Eye exam: Present: normal appearance - ENT ENT exam: Present: mucous membranes moist - Neck Neck exam: Present: normal inspection - Respiratory Respiratory exam: Present: normal lung sounds bilaterally. Absent: respiratory distress - Cardiovascular Cardiovascular Exam: Present: regular rate, normal rhythm. Absent: systolic murmur, diastolic murmur, rubs, gallop - GI/Abdominal GI/Abdominal exam: Present: soft, normal bowel sounds - Extremities Exam Extremities exam: Present: normal inspection - Back Exam Back exam: Present: normal inspection - Neurological Exam Neurological exam: Present: alert, oriented X3 - Psychiatric Psychiatric exam: Present: normal affect, normal mood - Skin Skin exam: Present: warm, dry, intact, normal color. Absent: rash ED Course Vital Signs 09/07/17 09/08/17 09/08/17 23:39 01:57 01:59 Temperature 98.5 F Pulse Rate 120 H 95 H Respiratory 18 20 Rate Blood Pressure 151/91 139/83 O2 Sat by Pulse 100 74 L 81 L Oximetry 09/08/17 09/08/17 09/08/17 02:00 02:01 02:03 Temperature Pulse Rate 96 H 94 H 97 H Respiratory 17 19 14 Rate Blood Pressure 128/88 128/88 128/88 O2 Sat by Pulse 98 90 100 Oximetry 09/08/17 09/08/17 09/08/17 02:05 02:07 02:09 Temperature Pulse Rate 94 H 95 H 98 H Respiratory 22 15 20 Rate Blood Pressure 128/88 128/88 128/88 O2 Sat by Pulse 92 75 L 99 Oximetry 09/08/17 09/08/17 09/08/17 02:11 02:13 02:15 Temperature Pulse Rate 96 H 98 H 94 H Respiratory 15 20 23 Rate Blood Pressure 128/88 128/88 128/88 O2 Sat by Pulse 84 96 100 Oximetry 09/08/17 09/08/17 09/08/17 02:17 02:19 02:20 Temperature Pulse Rate 97 H 104 H Respiratory 13 14 15 Rate Blood Pressure 128/88 128/88 128/78 O2 Sat by Pulse 99 99 84 Oximetry 09/08/17 09/08/17 09/08/17 02:21 02:23 02:25 Temperature Pulse Rate Respiratory 16 19 11 L Rate Blood Pressure 128/78 128/78 128/78 O2 Sat by Pulse 98 92 95 Oximetry 09/08/17 09/08/17 09/08/17 02:27 02:29 02:31 Temperature Pulse Rate Respiratory 13 13 18 Rate Blood Pressure 128/78 128/78 128/78 O2 Sat by Pulse 92 78 L 97 Oximetry 09/08/17 09/08/17 09/08/17 02:33 02:35 02:37 Temperature Pulse Rate Respiratory 17 16 14 Rate Blood Pressure 128/78 128/78 128/78 O2 Sat by Pulse 85 95 70 L Oximetry 09/08/17 09/08/17 09/08/17 02:39 02:40 02:41 Temperature Pulse Rate Respiratory 13 14 16 Rate Blood Pressure 128/78 131/88 131/88 O2 Sat by Pulse 82 L 88 89 Oximetry 09/08/17 09/08/17 09/08/17 02:43 02:45 02:47 Temperature Pulse Rate Respiratory 14 13 14 Rate Blood Pressure 131/88 131/88 131/88 O2 Sat by Pulse 100 97 78 L Oximetry 09/08/17 09/08/17 09/08/17 02:49 02:51 02:53 Temperature Pulse Rate Respiratory 10 L 14 15 Rate Blood Pressure 131/88 131/88 131/88 O2 Sat by Pulse 94 100 97 Oximetry 09/08/17 09/08/17 09/08/17 02:55 02:57 02:59 Temperature Pulse Rate Respiratory 15 16 15 Rate Blood Pressure 131/88 131/88 131/88 O2 Sat by Pulse 85 74 L 100 Oximetry 09/08/17 09/08/17 09/08/17 03:00 03:01 03:03 Temperature Pulse Rate Respiratory 15 Rate Blood Pressure 139/84 139/84 139/84 O2 Sat by Pulse 98 96 100 Oximetry 09/08/17 09/08/17 09/08/17 03:05 03:07 03:09 Temperature Pulse Rate Respiratory Rate Blood Pressure 139/84 139/84 139/84 O2 Sat by Pulse 99 100 100 Oximetry 09/08/17 09/08/17 09/08/17 03:11 03:13 03:15 Temperature Pulse Rate Respiratory Rate Blood Pressure 139/84 139/84 139/84 O2 Sat by Pulse 100 99 100 Oximetry 09/08/17 09/08/17 09/08/17 03:17 03:19 03:20 Temperature Pulse Rate Respiratory Rate Blood Pressure 139/84 139/84 143/87 O2 Sat by Pulse 91 100 100 Oximetry 09/08/17 09/08/17 09/08/17 03:21 03:23 03:25 Temperature Pulse Rate Respiratory Rate Blood Pressure 143/87 143/87 143/87 O2 Sat by Pulse 98 90 95 Oximetry 09/08/17 09/08/17 09/08/17 03:27 03:29 03:31 Temperature Pulse Rate Respiratory Rate Blood Pressure 143/87 143/87 143/87 O2 Sat by Pulse 99 99 86 Oximetry 09/08/17 03:33 Temperature Pulse Rate Respiratory Rate Blood Pressure 143/87 O2 Sat by Pulse 100 Oximetry ED Medical Decision Making - Lab Data Result diagrams: 09/08/17 02:37 09/08/17 02:37 - EKG Data -: EKG Interpreted by Me EKG shows normal: sinus rhythm Rate: tachycardia - EKG Data When compared to previous EKG there are: no significant change, changes noted Interpretation: no acute changes, normal EKG - Medical Decision Making Will admit patient to rule out ACS. Hospitalist consult for admission - Differential Diagnosis cp. sob. angina. anx. stress Critical care attestation.: If time is entered above; I have spent that time in minutes in the direct care of this critically ill patient, excluding procedure time. ED Disposition Clinical Impression: Chest pain, Shortness of breath, Sore throat, Throat pain Disposition: OP ADMIT IP TO THIS HOSP Is pt being admited?: Yes Does the pt Need Aspirin: Yes Condition: Serious Time of Disposition: 05:20
[2017-09-08 02:55] LABS: Basophils % (Auto) 0.7 % (0.0-1.8); Eosinophils % (Auto) 0.7 % (0.0-4.3); Hematocrit 35.5 % (30.3-42.9); Hemoglobin 11.8 gm/dl (10.1-14.3); Mean Corpuscular HGB Conc 33 % (30-34); Mean Corpuscular Volume 78 fl (79-97); Platelet Count 317 K/mm3 (140-440); Red Blood Count 4.58 M/mm3 (3.65-5.03); Red Cell Distribution Width 19.3 % (13.2-15.2); White Blood Count 6.7 K/mm3 (4.5-11.0)
[2017-09-08 02:56] LABS: Mean Corpuscular Hemoglobin 26 pg (28-32)
[2017-09-08 03:15] LABS: Creatine Kinase MB 40.8 ng/mL (0.0-4.0)
[2017-09-08 03:18] LABS: Alanine Aminotransferase 31 units/L (7-56); Albumin 4.1 g/dL (3.9-5); Albumin/Globulin Ratio 1.4 %; Alkaline Phosphatase 51 units/L (35-129); Anion Gap 23 mmol/L; BUN/Creatinine Ratio 22; Blood Urea Nitrogen 13 mg/dL (7-17); Calcium 8.9 mg/dL (8.4-10.2); Carbon Dioxide 21 mmol/L (22-30); Chloride 97.2 mmol/L (98-107); Glucose 87 mg/dL (65-100); Sodium 137 mmol/L (137-145); Total Protein 7.1 g/dL (6.3-8.2)
[2017-09-08 03:30] LABS: Creatine Kinase 3022 units/L (30-135)
[2017-09-08] MEDS ORDERED: ASPIRIN PO ONE (05:20)
[2017-09-08] MEDS ORDERED: TORADOL IV ONE (05:30)
--- NOTE | 2017-09-08 07:26 | History and Physical Report ---
History of Present Illness Date of examination: 09/08/17 Date of admission: 09/08/17 Chief complaint: Chest pain and shortness of breath History of present illness: Very pleasant 37-year-old -[place] female patient with significant past medical history of HIV AIDS follows with health Department for her medical needs , presented to the emergency room with atypical chest pain sore throat and shortness of breath No history of coronary artery disease in the past, greatest pain between 4-6/10 Associated with mild mild nausea no vomiting, intermittently radiates to her left shoulder associated with shortness of breath Denies orthopnea paroxysmal nocturnal dyspnea First set of cardiac enzymes negative EKG no acute ST-T changes Past History Past Medical History: HIV/AIDS Past Surgical History: No surgical history Social history: lives with family, full code. denies: smoking, alcohol abuse, prescription drug abuse Family history: hypertension Medications and Allergies Allergies Allergy/AdvReac Type Severity Reaction Status Date / Time influenza virus vaccine, Allergy Swelling Verified 08/31/17 07:55 specific [Influenza Virus Vacc,Specific] Sulfa (Sulfonamide Allergy Swelling Verified 08/31/17 07:55 Antibiotics) sulfamethoxazole Allergy Swelling Verified 08/31/17 07:55 [From Bactrim] trimethoprim [From Bactrim] Allergy Swelling Verified 08/31/17 07:55 Home Medications Medication Instructions Recorded Confirmed Last Taken Type QUEtiapine [SEROquel] 200 mg PO QHS MDD 400 09/05/16 10/14/16 10/13/16 History Efavirenz/Emtricitab/Tenofovir 600 mg PO QDAY 10/14/16 10/14/16 10/13/16 History [Atripla Tablet] Ibuprofen [Advil 100 MG tab] 200 mg PO QHS PRN 10/14/16 10/14/16 10/13/16 History Prednisone [predniSONE 5 mg (6-Day 5 mg PO .TAPER 10/14/16 10/14/16 10/13/16 History Pack, 21 Tabs)] Ibuprofen [Motrin] 600 mg PO Q8H PRN #30 tablet 08/30/17 Unknown Rx Triamcinolone 0.1% [Kenalog 0.1% 1 applic TP TID #1 tube 08/30/17 Unknown Rx OINT] diphenhydrAMINE [Benadryl CAP] 25 mg PO QHS PRN #20 capsule 08/30/17 Unknown Rx Naproxen 250 mg PO Q6HR #30 tablet 08/31/17 Unknown Rx Review of Systems Constitutional: no weight loss, no weight gain Ears, nose, mouth and throat: no nasal congestion, no nasal discharge Cardiovascular: chest pain, no orthopnea, no palpitations Respiratory: shortness of breath, no cough with sputum Gastrointestinal: nausea, no abdominal pain, no vomiting Musculoskeletal: no myalgias, no arthritis Integumentary: no rash, no lesions Neurological: no weakness, no parathesias Psychiatric: no anxiety, no depression Endocrine: no cold intolerance, no heat intolerance, no polydipsia, no polyuria Hematologic/Lymphatic: no easy bruising, no easy bleeding Allergic/Immunologic: no urticaria, no allergic rhinitis Exam - Constitutional Vitals: Temp Pulse Resp BP Pulse Ox 98.5 F 104 H 15 143/87 100 09/07/17 23:39 09/08/17 02:19 09/08/17 03:00 09/08/17 03:33 09/08/17 03:33 General appearance: Present: no acute distress, well-nourished - EENT Eyes: Present: PERRL, irregular pupil - Neck Neck: Present: supple. Absent: enlarged thyroid - Cardiovascular Rhythm: regular Heart Sounds: Present: S1 & S2 - Extremities Extremities: no ischemia, No edema - Abdominal General gastrointestinal: Present: soft, non-tender, non-distended, normal bowel sounds - Integumentary Integumentary: Present: clear, warm - Musculoskeletal Musculoskeletal: strength equal bilaterally, generalized weakness - Psychiatric Psychiatric: appropriate mood/affect, cooperative - Neurologic Neurologic: CNII-XII intact, moves all extremities Results - Labs CBC & Chem 7: 09/08/17 02:37 09/08/17 02:37 Labs: Abnormal lab results 09/08/17 09/08/17 09/08/17 Range/Units 00: 00:17 02:37 MCV 78 L 78 L (79-97) fl MCH 26 L 26 L (28-32) pg RDW 19.8 H 19.3 H (13.2-15.2) % [place] % (Auto) 10.4 H 12.3 H (0.0-7.3) % Sodium 136 L (137-145) mmol/L Chloride 96.0 L (98-107) mmol/L Carbon Dioxide (22-30) mmol/L Creatinine (0.7-1.2) mg/dL AST (5-40) units/L Total Creatine Kinase (30-135) units/L CK-MB (CK-2) (0.0-4.0) ng/mL 09/08/17 Range/Units 02:37 MCV (79-97) fl MCH (28-32) pg RDW (13.2-15.2) % [place] % (Auto) (0.0-7.3) % Sodium (137-145) mmol/L Chloride 97.2 L (98-107) mmol/L Carbon Dioxide 21 L (22-30) mmol/L Creatinine 0.6 L (0.7-1.2) mg/dL AST 77 H (5-40) units/L Total Creatine Kinase 3022 H (30-135) units/L CK-MB (CK-2) 40.8 H (0.0-4.0) ng/mL Assessment and Plan --Atypical chest pain; rule out acute coronary syndrome serial cardiac enzymes, EKG, aspirin, beta blockers Lexiscan stress test, if abnormal or if patient has persistent symptoms Consider cardiology evaluation --GERD; Pepcid --Acute pharyngitis; supportive care, Cepacol lozenges, amoxicillin --History of HIV-AIDS; resume antiretroviral medications and supportive care --Recreational drug use; methamphetamine, counseling done and advised to quit --DVT prophylaxis with Lovenox --Non traumatic rhabdomyolysis; with preserved renal function IV hydration, closely monitor input and output and renal function Methamphetamine positive , closely monitor CK levels Follow stress test, cardiology evaluation if abnormal Possible discharge in 1-2 days if stable
[2017-09-08 08:08] LABS: Creatine Kinase MB 35.6 ng/mL (0.0-4.0)
[2017-09-08 08:30] LABS: Creatine Kinase 2681 units/L (30-135)
[2017-09-08] MEDS ORDERED: LEXISCAN IV ONE ×2 (08:44→08:50)
[2017-09-08] MEDS ORDERED: TYLENOL ONE (09:24)
[2017-09-08] MEDS ORDERED: CEPACOL X STRENGTH MM PRN (09:45)
[2017-09-08] MEDS ORDERED: TYLENOL PO ONE (09:46)
[2017-09-08] MEDS ORDERED: ATRIPLA (NF) PO SCH (10:00)
[2017-09-08] MEDS: MOTRIN PO PRN (11:22)
[2017-09-08 12:34] LABS: Urine Drugs of Abuse Note Disclamer
[2017-09-08] MEDS: BABY ASPIRIN PO SCH (12:50)
[2017-09-08] MEDS: COREG PO SCH ×2 (12:50→22:34)
[2017-09-08] MEDS: KENALOG TP SCH (13:08)
[2017-09-08] MEDS ORDERED: TRIAMCINOLONE 0.1% TP SCH (14:00)
--- NOTE | 2017-09-08 15:14 | Event Note ---
Date: 09/08/17 lexiscan stress: normal lv systolic function with lv ef of 68% and normal wall motion. there is a medium sized moderately intense reversible anterior pefusion which may be artifactual in origin due to a normaliziation error from intense uptake of isotope in the inferior wall due to increase isotope activity in the adjacent gi tract. clinical correlation required. further eval via another imaging modality such as cardiac ct cor angiography may be warranted if clinically appropriate.
--- NOTE | 2017-09-08 15:26 | Treadmill Report ---
NUCLEAR CARDIAC IMAGING INDICATION FOR PROCEDURE: Chest pain. Informed consent was obtained. DESCRIPTION OF PROCEDURE: Vasodilator stress was achieved with the intravenous administration of 0.4 mg of Lexiscan per protocol. Rest and stress nuclear cardiac imaging was performed following the intravenous administration of 10 mCi of technetium 99m Myoview and 28 mCi of technetium 99m Myoview for the rest and stress acquisition respectively per the appropriate protocol. Gated SPECT imaging demonstrates a post-stress left ventricular ejection fraction of 68% with normal wall motion. Myocardial perfusion imaging demonstrates no significant cavity change between stress and rest. A medium size moderately intense reversible anterior perfusion abnormality is present. This defect, however, may be artifactual in origin and represent a normalization error. This is because there is intense activity in the inferior wall of the left ventricle arising from excessive isotope activity in the adjacent GI tract. This increased isotope activity in the inferior wall may be resulting in a potential normalization artifact and creating what appears to be hypoperfusion of the anterior segments. Nuclear cardiac imaging demonstrates grossly normal left ventricular systolic function. Although anterior wall myocardial ischemia cannot be definitely excluded, I suspect that the anterior wall perfusion defect is artifactual in origin and may be due to a normalization error as a result of excessive isotope activity in the inferior wall. Clinical correlation is required. Further evaluation with another imaging modality to resolve this issue and to determine whether or not a true anterior perfusion defect is present may be warranted. The procedure was well tolerated. There were no complications. JOB# [id number] PRUDENCIO/SATNAM SEAMAN
[2017-09-08] MEDS ORDERED: NACL 0.9% 1000 ML 1,000 ML IV SCH (17:00)
[2017-09-08] MEDS: TRIMOX PO SCH (22:34)
[2017-09-09] MEDS: KENALOG TP SCH ×2 (03:21→17:27)
[2017-09-09 06:36] LABS: Anion Gap 17 mmol/L; BUN/Creatinine Ratio 23; Blood Urea Nitrogen 16 mg/dL (7-17); Carbon Dioxide 24 mmol/L (22-30); Chloride 100.7 mmol/L (98-107); Creatine Kinase 1377 units/L (30-135); Glucose 142 mg/dL (65-100); Potassium 3.7 mmol/L (3.6-5.0); Sodium 138 mmol/L (137-145)
[2017-09-09] MEDS: TRIMOX PO SCH ×3 (07:07→22:23)
--- NOTE | 2017-09-09 07:12 | Consultation ---
History of Present Illness Consult reason: chest pain, other (abnormal stress test) History of present illness: 37 yo female with hx of hiv presented to ed at [facility] c/o increased emotional stress over the past 2 weeks as well as having intermittent precordial chest pressure for about 6 hours on the day of admission. troponins were neg and the ecg demonstrated no acute changes. a stress mpi study was interpreted as abn but possibly related to artifact. card consultation was requested. she denies tobacco or alcohol abuse. there is a family hx of htn. no palp swelling pnd orthopnea or syncope. cpk elevated. Past History Past Medical History: HIV/AIDS Past Surgical History: No surgical history Social history: lives with family, full code. denies: smoking, alcohol abuse, prescription drug abuse Family history: hypertension Medications and Allergies Allergies Allergy/AdvReac Type Severity Reaction Status Date / Time influenza virus vaccine, Allergy Swelling Verified 08/31/17 07:55 specific [Influenza Virus Vacc,Specific] Sulfa (Sulfonamide Allergy Swelling Verified 08/31/17 07:55 Antibiotics) sulfamethoxazole Allergy Swelling Verified 08/31/17 07:55 [From Bactrim] trimethoprim [From Bactrim] Allergy Swelling Verified 08/31/17 07:55 Home Medications Medication Instructions Recorded Confirmed Last Taken Type QUEtiapine [SEROquel] 200 mg PO QHS MDD 400 09/05/16 09/09/17 10/13/16 History Efavirenz/Emtricitab/Tenofovir 600 mg PO QDAY 10/14/16 09/09/17 2 Weeks Ago History [Atripla Tablet] ~08/26/17 Ibuprofen [Motrin] 600 mg PO Q8H PRN #30 tablet 08/30/17 09/09/17 Unknown Rx Triamcinolone 0.1% [Kenalog 0.1% 1 applic TP TID #1 tube 08/30/17 09/09/17 Unknown Rx OINT] Dextroamphetamine/Amphetamine 20 mg PO BID 09/09/17 09/09/17 Unknown History [Adderall 20 mg Tablet] clonazePAM [Klonopin] 0.5 mg PO DAILY 09/09/17 09/09/17 Unknown History Active Meds: Active Medications Amoxicillin (Trimox) 500 mg PO Q8HR [facility] Last Admin: 09/09/17 07:07 Dose: 500 mg Aspirin (Baby Aspirin) 81 mg PO QDAY [facility] Last Admin: 09/08/17 12:50 Dose: 81 mg Benzocaine/Menthol (Cepacol X Strength) 1 each MM Q4H PRN PRN Reason: Sore Throat Carvedilol (Coreg) 3.125 mg PO BID [facility] Last Admin: 09/08/17 22:34 Dose: 3.125 mg Sodium Chloride (Nacl 0.9% 1000 Ml) 1,000 mls @ 75 mls/hr IV DIRECT [facility] Last Admin: 09/08/17 16:47 Dose: 75 mls/hr Ibuprofen (Motrin) 600 mg PO Q8H PRN PRN Reason: Pain Last Admin: 09/08/17 11:22 Dose: 600 mg Quetiapine Fumarate (Seroquel) 200 mg PO QHS [facility] Last Admin: 09/08/17 22:34 Dose: 200 mg Triamcinolone Acetonide (Kenalog) 1 applic TP TID [facility] Last Admin: 09/09/17 03:21 Dose: Not Given Review of Systems Constitutional: no fever, no chills Eyes: bilateral: blurred vision (denies) Ears, nose, mouth and throat: sore throat, no epistaxis Cardiovascular: claudication Respiratory: no hemoptysis Gastrointestinal: no abdominal pain Genitourinary Female: no flank pain Musculoskeletal: no frequent falls Integumentary: no rash Neurological: no seizures Psychiatric: other (inreased emotional stress) Endocrine: no cold intolerance, no heat intolerance Hematologic/Lymphatic: no easy bruising, no easy bleeding Allergic/Immunologic: no urticaria Physical Examination Vital Signs Temp Pulse Resp BP Pulse Ox 98.5 F 120 H 18 151/91 100 09/07/17 23:39 09/07/17 23:39 09/07/17 23:39 09/07/17 23:39 09/07/17 23:39 General appearance: no acute distress HEENT: Positive: PERRL, Normocephaly, Mucus Membranes Moist Neck: Positive: neck supple, Carotid Upstroke (2+), Bruit. Negative: JVD/HJR Cardiac: Positive: Reg Rate and Rhythm. Negative: S3, S4, Audible Murmur Lungs: Positive: clear to auscultation Neuro: Positive: Grossly Intact Abdomen: Positive: Soft. Negative: Tender Skin: Negative: Rash Musculoskeletal: Normal Range of Motion Extremities: Present: normal. Absent: edema Results 09/08/17 02:37 09/09/17 05:39 Cardiac Enzymes 09/08/17 Range/Units 07:39 CK-MB (CK-2) 35.6 H (0.0-4.0) ng/mL Comprehensive Metabolic Panel 09/09/17 Range/Units 05:39 Sodium 138 (137-145) mmol/L Potassium 3.7 (3.6-5.0) mmol/L Chloride 100.7 (98-107) mmol/L Carbon Dioxide 24 (22-30) mmol/L BUN 16 (7-17) mg/dL Creatinine 0.7 (0.7-1.2) mg/dL Glucose 142 H (65-100) mg/dL Calcium 9.0 (8.4-10.2) mg/dL - EKG Interpretation EKG: WNL EKG interpretations - EKG Sinus rhythms and dysrhythmias: sinus rhythm Assessment and Plan atypical chest pain ecg: no acute changes neg trop. doubt acs elevated cpk ?etiol abn/equivocal stress test: findings suggest ant ischemia but may be artifactual as described in the report. may need anatomic assessment for further eval such as ccta or ?cardiac cath/cor angio
--- NOTE | 2017-09-09 09:11 | Progress Note ---
Assessment and Plan atypical chest pain ecg: no acute changes neg trop. doubt acs elevated cpk ?etiol abn/equivocal stress test: findings suggest ant ischemia but may be artifactual as described in the report. may need anatomic assessment for further eval such as ccta or ?cardiac cath/cor angio Discussed further assessment with patient. She appears to be agreeable but is very sleepy at the time of this discussion and will readdress this tomorrow. Subjective Date of service: 09/09/17 Interval history: Patient resting quietly and in no acute distress. Denies chest pain or shortness of breath at this time. Objective Vital Signs Temp Pulse Resp BP BP Pulse Ox 09/09/17 04:43 97.4 F L 84 18 92/58 99 09/09/17 00:38 98.8 F 18 133/88 09/08/17 22:34 130 H 133/92 09/08/17 19:46 98.6 F 18 133/92 09/08/17 19:20 94 H 09/08/17 18:08 98.5 F 91 H 18 134/84 84 09/08/17 16:22 134/84 09/08/17 12:47 125/78 09/08/17 11:22 14 09/08/17 11:16 104 H 101/77 09/08/17 11:15 108 H 118/74 09/08/17 11:14 109 H 111/87 09/08/17 11:13 120 H 112/79 09/08/17 11:12 112 H 112/70 09/08/17 10:47 18 09/08/17 10:45 84 105/69 09/08/17 09:47 18 - Physical Examination HEENT: Positive: PERRL, Normocephaly, Mucus Membranes Moist Neck: Positive: neck supple, Carotid Upstroke (2+), Bruit. Negative: JVD/HJR Cardiac: Positive: Reg Rate and Rhythm. Negative: S3, Audible Murmur Lungs: Positive: clear to auscultation Neuro: Positive: Grossly Intact Abdomen: Positive: Soft. Negative: Tender Skin: Negative: Rash Musculoskeletal: Normal Range of Motion Extremities: Present: normal. Absent: edema - Labs and Meds Comprehensive Metabolic Panel 09/09/17 Range/Units 05:39 Sodium 138 (137-145) mmol/L Potassium 3.7 (3.6-5.0) mmol/L Chloride 100.7 (98-107) mmol/L Carbon Dioxide 24 (22-30) mmol/L BUN 16 (7-17) mg/dL Creatinine 0.7 (0.7-1.2) mg/dL Glucose 142 H (65-100) mg/dL Calcium 9.0 (8.4-10.2) mg/dL
[2017-09-09] MEDS: BABY ASPIRIN PO SCH (09:55)
[2017-09-09] MEDS: COREG PO SCH ×2 (09:55→22:23)
[2017-09-09] MEDS ORDERED: LIDOCAINE VISCOUS 2% PO PRN (12:30)
[2017-09-09] MEDS: MOTRIN PO PRN (14:46)
--- NOTE | 2017-09-09 16:02 | Progress Note ---
Assessment and Plan - Atypical chest pain: Noramal Troponin and unremakable EKG. Had equivocal stress test. for cardiac cath or coronary angio per cardiology.comntinieu with ASA, NTG and morphine - GERD: On PPI - HIV/ AIDS; On ART - Acute pharngitis. No candidiasis on oral exam: Coantinue with Lozanges. Add Lidocain solution switch and spit - Amphetamine abuse: Counselling against Amphetamine done - DVT prophyslaxis with Lovenox Subjective Date of service: 09/09/17 Principal diagnosis: chest pain,HIV Elevated Doroteo Interval history: Has pain in her throat especially on swallowing. No chest pain Objective - Constitutional Vitals: Vital Signs - 12hr 09/09/17 09/09/17 09/09/17 04:43 08:00 09:55 Temperature 97.4 F L Pulse Rate 84 72 87 Respiratory 18 Rate Blood Pressure 92/58 104/68 O2 Sat by Pulse 99 Oximetry General appearance: Present: no acute distress, well-nourished - EENT Eyes: PERRL, EOM intact - Neck Neck: supple, normal ROM - Respiratory Respiratory effort: normal Respiratory: bilateral: CTA - Cardiovascular Rhythm: regular Heart Sounds: Present: S1 & S2. Absent: gallop, rub Extremities: pulses intact, No edema, normal color, Full ROM - Gastrointestinal General gastrointestinal: Present: soft, non-tender, non-distended, normal bowel sounds - Integumentary Integumentary: clear, warm, dry - Musculoskeletal Musculoskeletal: 1, strength equal bilaterally - Neurologic Neurologic: moves all extremities - Psychiatric Psychiatric: memory intact, appropriate mood/affect, intact judgment & insight - Labs CBC & Chem 7: 09/08/17 02:37 09/09/17 05:39 Labs: Abnormal lab results 09/09/17 Range/Units 05:39 Glucose 142 H (65-100) mg/dL Total Creatine Kinase 1377 H (30-135) units/L
[2017-09-09 21:38] LABS: Cholesterol 218 mg/dL (50-199); HDL Cholesterol 110 mg/dL (40-59); LDL Cholesterol,Direct 94 mg/dL (50-130); Triglycerides 73 mg/dL (2-149)
[2017-09-10] MEDS: KENALOG TP SCH ×3 (06:41→15:12)
--- NOTE | 2017-09-10 09:13 | Progress Note ---
Assessment and Plan atypical chest pain ecg: no acute changes neg trop. doubt acs elevated cpk ?etiol abn/equivocal stress test: findings suggest ant ischemia but may be artifactual as described in the report. may need anatomic assessment for further eval such as ccta or ?cardiac cath/cor angio However it may be possible to reconcile the stress nuclear findings without having to resort to coronary angiography by performing a stress echocardiogram instead. Patient is agreeable to this. I discussed this with the weekend photonics engineering technologist but she was not certain whether this could be accomplished. Will address with echo department in a.m. to see if this is feasible. Patient was not able to walk the treadmill for her nuclear study so a dobutamine stress echo may be the preferred modality. Subjective Date of service: 09/10/17 Principal diagnosis: chest pain,HIV Elevated Doroteo Interval history: Patient resting quietly and in no acute distress. She remains pain-free Objective Vital Signs Temp Pulse Resp BP Pulse Ox 09/10/17 04:43 98.5 F 66 18 83/45 98 09/09/17 19:53 98.2 F 92 H 18 114/75 99 09/09/17 15:50 97.9 F 81 18 119/72 100 09/09/17 09:55 87 104/68 - Physical Examination HEENT: Positive: PERRL, Normocephaly, Mucus Membranes Moist Neck: Positive: neck supple, Carotid Upstroke (2+), Bruit. Negative: JVD/HJR Cardiac: Positive: Reg Rate and Rhythm Lungs: Positive: clear to auscultation Neuro: Positive: Grossly Intact Abdomen: Positive: Soft. Negative: Tender Skin: Negative: Rash Musculoskeletal: Normal Range of Motion Extremities: Present: normal. Absent: edema - Labs and Meds Lipids 09/09/17 Range/Units 05:39 Triglycerides 73 (2-149) mg/dL Cholesterol 218 H (50-199) mg/dL HDL Cholesterol 110 H (40-59) mg/dL Cholesterol/HDL Ratio 1.98 % - EKG Sinus rhythms and dysrhythmias: sinus rhythm
[2017-09-10] MEDS: BABY ASPIRIN PO SCH (09:52)
[2017-09-10] MEDS: TRIMOX PO SCH ×3 (09:52→21:22)
[2017-09-10] MEDS: COREG PO SCH (12:30)
[2017-09-10] MEDS: MOTRIN PO PRN (15:34)
--- NOTE | 2017-09-10 17:01 | Progress Note ---
Assessment and Plan Assessment and plan: --Atypical chest pain; abnormal equivocal stress test, further evaluation, possible cath am Neurology following --GERD; Pepcid --Acute pharyngitis; supportive care, Cepacol lozenges, amoxicillin --History of HIV-AIDS; on antiretroviral medications --Recreational drug use; methamphetamine, counseling done and advised to quit --DVT prophylaxis with Lovenox --Non traumatic rhabdomyolysis; CK trending down from 3022 - 612, continue oral and IV fluids Follow Heart Catheterization, if negative and patient is stable can be discharged home tomorrow History Interval history: Patient seen and examined Medical records reviewed, feels better No new complaints Stress test abnormal, possible heart cath tomorrow Hospitalist Physical - Constitutional Vitals: Temp Pulse Resp BP Pulse Ox 97.8 F 80 18 87/47 99 09/10/17 08:43 09/10/17 16:00 09/10/17 08:43 09/10/17 12:30 09/10/17 08:43 General appearance: Present: no acute distress, well-nourished - EENT Eyes: Present: PERRL, EOM intact - Neck Neck: Present: supple, normal ROM - Respiratory Respiratory effort: normal Respiratory: bilateral: diminished, negative: rales, rhonchi, wheezing - Cardiovascular Rhythm: regular Heart Sounds: Present: S1 & S2 - Extremities Extremities: no ischemia, No edema Peripheral Pulses: within normal limits - Abdominal General gastrointestinal: soft, non-tender, non-distended - Integumentary Integumentary: Present: clear, warm - Psychiatric Psychiatric: appropriate mood/affect, cooperative - Neurologic Neurologic: CNII-XII intact, gait normal Results - Labs CBC & Chem 7: 09/08/17 02:37 09/09/17 05:39 Labs: Laboratory Last Values WBC 6.7 K/mm3 (4.5-11.0) 09/08/17 02:37 RBC 4.58 M/mm3 (3.65-5.03) 09/08/17 02:37 Hgb 11.8 gm/dl (10.1-14.3) 09/08/17 02:37 Hct 35.5 % (30.3-42.9) 09/08/17 02:37 MCV 78 fl (79-97) L 09/08/17 02:37 MCH 26 pg (28-32) L 09/08/17 02:37 MCHC 33 % (30-34) 09/08/17 02:37 RDW 19.3 % (13.2-15.2) H 09/08/17 02:37 Plt Count 317 K/mm3 (140-440) 09/08/17 02:37 Lymph % (Auto) 23.5 % (13.4-35.0) 09/08/17 02:37 [place] % (Auto) 12.3 % (0.0-7.3) H 09/08/17 02:37 Eos % (Auto) 0.7 % (0.0-4.3) 09/08/17 02:37 Baso % (Auto) 0.7 % (0.0-1.8) 09/08/17 02:37 Lymph # 1.6 K/mm3 (1.2-5.4) 09/08/17 02:37 [place] # 0.8 K/mm3 (0.0-0.8) 09/08/17 02:37 Eos # 0.0 K/mm3 (0.0-0.4) 09/08/17 02:37 Baso # 0.0 K/mm3 (0.0-0.1) 09/08/17 02:37 Seg Neutrophils % 62.8 % (40.0-70.0) 09/08/17 02:37 Seg Neutrophils # 4.2 K/mm3 (1.8-7.7) 09/08/17 02:37 D-Dimer 211.34 ng/mlDDU (0-234) 09/08/17 02:37 VBG pH 7.336 (7.320-7.420) 09/08/17 00:17 Sodium 138 mmol/L (137-145) 09/09/17 05:39 Potassium 3.7 mmol/L (3.6-5.0) 09/09/17 05:39 Chloride 100.7 mmol/L (98-107) 09/09/17 05:39 Carbon Dioxide 24 mmol/L (22-30) 09/09/17 05:39 Anion Gap 17 mmol/L 09/09/17 05:39 BUN 16 mg/dL (7-17) 09/09/17 05:39 Creatinine 0.7 mg/dL (0.7-1.2) 09/09/17 05:39 Estimated GFR > 60 ml/min 09/09/17 05:39 BUN/Creatinine Ratio 23 % 09/09/17 05:39 Glucose 142 mg/dL (65-100) H 09/09/17 05:39 Calcium 9.0 mg/dL (8.4-10.2) 09/09/17 05:39 Total Bilirubin 0.60 mg/dL (0.1-1.2) 09/08/17 02:37 AST 77 units/L (5-40) H 09/08/17 02:37 ALT 31 units/L (7-56) 09/08/17 02:37 Alkaline Phosphatase 51 units/L (35-129) 09/08/17 02:37 Total Creatine Kinase 612 units/L (30-135) H 09/10/17 09:55 CK-MB (CK-2) 35.6 ng/mL (0.0-4.0) H 09/08/17 07:39 CK-MB (CK-2) Rel Index 1.3 (0-4) 09/08/17 07:39 Troponin T < 0.010 ng/mL (0.00-0.029) 09/08/17 07:39 NT-Pro-B Natriuret Pep 15.61 pg/mL (0-450) 09/08/17 02:37 Total Protein 7.1 g/dL (6.3-8.2) 09/08/17 02:37 Albumin 4.1 g/dL (3.9-5) 09/08/17 02:37 Albumin/Globulin Ratio 1.4 % 09/08/17 02:37 Triglycerides 73 mg/dL (2-149) 09/09/17 05:39 Cholesterol 218 mg/dL (50-199) H 09/09/17 05:39 LDL Cholesterol Direct 94 mg/dL (50-130) 09/09/17 05:39 HDL Cholesterol 110 mg/dL (40-59) H 09/09/17 05:39 Cholesterol/HDL Ratio 1.98 % 09/09/17 05:39 HCG, Qual Negative (Negative) 09/08/17 00:17 Urine Opiates Screen Presumptive negative 09/08/17 12:21 Urine Methadone Screen Presumptive negative 09/08/17 12:21 Ur Barbiturates Screen Presumptive negative 09/08/17 12:21 Ur Phencyclidine Scrn Presumptive negative 09/08/17 12:21 Ur Amphetamines Screen Presumptive positive 09/08/17 12:21 U Benzodiazepines Scrn Presumptive negative 09/08/17 12:21 Urine Cocaine Screen Presumptive negative 09/08/17 12:21 U Marijuana (THC) Screen Presumptive negative 09/08/17 12:21 Drugs of Abuse Note Disclamer 09/08/17 12:21
[2017-09-11] MEDS: KENALOG TP SCH ×4 (00:11→21:58)
[2017-09-11] MEDS: COREG PO SCH ×3 (00:11→21:45)
[2017-09-11] MEDS: TRIMOX PO SCH ×3 (06:00→21:46)
--- NOTE | 2017-09-11 08:02 | Progress Note ---
Addendum entered and electronically signed by WILLY LAYTON MD 09/11/17 16:55 : Sincerely and evaluated along with the nurse practitioner, physical examination done, Patient is scheduled for cardiac CTA Medical records reviewed, agree with the documentation and formulated the treatment plan Original Note: <NADIA HAIRSTON - Last Filed: 09/11/17 14:45> Assessment and Plan Assessment and plan: Patient os 37 years old female with past medical histroy of HIV/AIDS who presented to the Emergency department for atypical chest pain, sore throat and shortness of breath. Atypical Chest Pain ECG with NAF Negative Cardiac enzyme Abnormal/equivocal stress test - findings suggest anterior ischemia but may be artifactual per cardiology. Cardiac CTA today and await for findings. if its normal can discharge tomorrow Continue on aspirin Nitroglycerin when necessary Morphine for pain Hypertension Resume home antihypertensive medication IV hydralazine for SBP>160 Closely monitor blood pressure and Acute pharyngitis Continue on Amoxicillin and Cepacol lozenges Supportive care Non traumatic rhabdomyolysis Total creatinine clearance trending down Continue IV fluid hydration Closely monitor BMP History of HIV-AIDS Continue on home antiretroviral medications ID follow up as outpatient GERD Continue on Pepcid Recreational drug use Patient urine Positive for Amethamphetamine Cessation counseling done and strongly advised to quit DVT prophylaxis Lovenox History Interval history: Patient denies having chest pain or discomfort, shortnesses of breath. Labs and nursing notes reviewed. Hospitalist Physical - Constitutional Vitals: Temp Pulse Resp BP Pulse Ox 97.9 F 72 18 102/63 98 09/11/17 03:27 09/11/17 03:27 09/11/17 03:27 09/11/17 03:27 09/11/17 03:27 General appearance: Present: no acute distress, well-nourished - EENT Eyes: Present: PERRL ENT: hearing intact - Neck Neck: Present: supple - Respiratory Respiratory effort: normal Respiratory: bilateral: CTA - Cardiovascular Rhythm: regular Heart Sounds: Present: S1 & S2 - Abdominal General gastrointestinal: soft, non-tender - Integumentary Integumentary: Present: clear, warm, dry - Psychiatric Psychiatric: appropriate mood/affect - Neurologic Neurologic: moves all extremities - Allied Health Allied health notes reviewed: nursing Results - Labs CBC & Chem 7: 09/08/17 02:37 09/09/17 05:39 Labs: Laboratory Last Values WBC 6.7 K/mm3 (4.5-11.0) 09/08/17 02:37 RBC 4.58 M/mm3 (3.65-5.03) 09/08/17 02:37 Hgb 11.8 gm/dl (10.1-14.3) 09/08/17 02:37 Hct 35.5 % (30.3-42.9) 09/08/17 02:37 MCV 78 fl (79-97) L 09/08/17 02:37 MCH 26 pg (28-32) L 09/08/17 02:37 MCHC 33 % (30-34) 09/08/17 02:37 RDW 19.3 % (13.2-15.2) H 09/08/17 02:37 Plt Count 317 K/mm3 (140-440) 09/08/17 02:37 Lymph % (Auto) 23.5 % (13.4-35.0) 09/08/17 02:37 Branch % (Auto) 12.3 % (0.0-7.3) H 09/08/17 02:37 Eos % (Auto) 0.7 % (0.0-4.3) 09/08/17 02:37 Baso % (Auto) 0.7 % (0.0-1.8) 09/08/17 02:37 Lymph # 1.6 K/mm3 (1.2-5.4) 09/08/17 02:37 Branch # 0.8 K/mm3 (0.0-0.8) 09/08/17 02:37 Eos # 0.0 K/mm3 (0.0-0.4) 09/08/17 02:37 Baso # 0.0 K/mm3 (0.0-0.1) 09/08/17 02:37 Seg Neutrophils % 62.8 % (40.0-70.0) 09/08/17 02:37 Seg Neutrophils # 4.2 K/mm3 (1.8-7.7) 09/08/17 02:37 D-Dimer 211.34 ng/mlDDU (0-234) 09/08/17 02:37 VBG pH 7.336 (7.320-7.420) 09/08/17 00:17 Sodium 138 mmol/L (137-145) 09/09/17 05:39 Potassium 3.7 mmol/L (3.6-5.0) 09/09/17 05:39 Chloride 100.7 mmol/L (98-107) 09/09/17 05:39 Carbon Dioxide 24 mmol/L (22-30) 09/09/17 05:39 Anion Gap 17 mmol/L 09/09/17 05:39 BUN 16 mg/dL (7-17) 09/09/17 05:39 Creatinine 0.7 mg/dL (0.7-1.2) 09/09/17 05:39 Estimated GFR > 60 ml/min 09/09/17 05:39 BUN/Creatinine Ratio 23 % 09/09/17 05:39 Glucose 142 mg/dL (65-100) H 09/09/17 05:39 Calcium 9.0 mg/dL (8.4-10.2) 09/09/17 05:39 Total Bilirubin 0.60 mg/dL (0.1-1.2) 09/08/17 02:37 AST 77 units/L (5-40) H 09/08/17 02:37 ALT 31 units/L (7-56) 09/08/17 02:37 Alkaline Phosphatase 51 units/L (35-129) 09/08/17 02:37 Total Creatine Kinase 612 units/L (30-135) H 09/10/17 09:55 CK-MB (CK-2) 35.6 ng/mL (0.0-4.0) H 09/08/17 07:39 CK-MB (CK-2) Rel Index 1.3 (0-4) 09/08/17 07:39 Troponin T < 0.010 ng/mL (0.00-0.029) 09/08/17 07:39 NT-Pro-B Natriuret Pep 15.61 pg/mL (0-450) 09/08/17 02:37 Total Protein 7.1 g/dL (6.3-8.2) 09/08/17 02:37 Albumin 4.1 g/dL (3.9-5) 09/08/17 02:37 Albumin/Globulin Ratio 1.4 % 09/08/17 02:37 Triglycerides 73 mg/dL (2-149) 09/09/17 05:39 Cholesterol 218 mg/dL (50-199) H 09/09/17 05:39 LDL Cholesterol Direct 94 mg/dL (50-130) 09/09/17 05:39 HDL Cholesterol 110 mg/dL (40-59) H 09/09/17 05:39 Cholesterol/HDL Ratio 1.98 % 09/09/17 05:39 HCG, Qual Negative (Negative) 09/08/17 00:17 Urine Opiates Screen Presumptive negative 09/08/17 12:21 Urine Methadone Screen Presumptive negative 09/08/17 12:21 Ur Barbiturates Screen Presumptive negative 09/08/17 12:21 Ur Phencyclidine Scrn Presumptive negative 09/08/17 12:21 Ur Amphetamines Screen Presumptive positive 09/08/17 12:21 U Benzodiazepines Scrn Presumptive negative 09/08/17 12:21 Urine Cocaine Screen Presumptive negative 09/08/17 12:21 U Marijuana (THC) Screen Presumptive negative 09/08/17 12:21 Drugs of Abuse Note Disclamer 09/08/17 12:21 <WILLY LAYTON - Last Filed: 09/11/17 16:54> Hospitalist Physical - Constitutional Vitals: Temp Pulse Resp BP Pulse Ox 98.3 F 58 L 18 106/62 99 09/11/17 11:49 09/11/17 14:20 09/11/17 14:20 09/11/17 14:20 09/11/17 11:49 Results - Labs CBC & Chem 7: 09/08/17 02:37 09/09/17 05:39 Labs: Laboratory Last Values WBC 6.7 K/mm3 (4.5-11.0) 09/08/17 02:37 RBC 4.58 M/mm3 (3.65-5.03) 09/08/17 02:37 Hgb 11.8 gm/dl (10.1-14.3) 09/08/17 02:37 Hct 35.5 % (30.3-42.9) 09/08/17 02:37 MCV 78 fl (79-97) L 09/08/17 02:37 MCH 26 pg (28-32) L 09/08/17 02:37 MCHC 33 % (30-34) 09/08/17 02:37 RDW 19.3 % (13.2-15.2) H 09/08/17 02:37 Plt Count 317 K/mm3 (140-440) 09/08/17 02:37 Lymph % (Auto) 23.5 % (13.4-35.0) 09/08/17 02:37 Branch % (Auto) 12.3 % (0.0-7.3) H 09/08/17 02:37 Eos % (Auto) 0.7 % (0.0-4.3) 09/08/17 02:37 Baso % (Auto) 0.7 % (0.0-1.8) 09/08/17 02:37 Lymph # 1.6 K/mm3 (1.2-5.4) 09/08/17 02:37 Branch # 0.8 K/mm3 (0.0-0.8) 09/08/17 02:37 Eos # 0.0 K/mm3 (0.0-0.4) 09/08/17 02:37 Baso # 0.0 K/mm3 (0.0-0.1) 09/08/17 02:37 Seg Neutrophils % 62.8 % (40.0-70.0) 09/08/17 02:37 Seg Neutrophils # 4.2 K/mm3 (1.8-7.7) 09/08/17 02:37 D-Dimer 211.34 ng/mlDDU (0-234) 09/08/17 02:37 VBG pH 7.336 (7.320-7.420) 09/08/17 00:17 Sodium 138 mmol/L (137-145) 09/09/17 05:39 Potassium 3.7 mmol/L (3.6-5.0) 09/09/17 05:39 Chloride 100.7 mmol/L (98-107) 09/09/17 05:39 Carbon Dioxide 24 mmol/L (22-30) 09/09/17 05:39 Anion Gap 17 mmol/L 09/09/17 05:39 BUN 16 mg/dL (7-17) 09/09/17 05:39 Creatinine 0.7 mg/dL (0.7-1.2) 09/09/17 05:39 Estimated GFR > 60 ml/min 09/09/17 05:39 BUN/Creatinine Ratio 23 % 09/09/17 05:39 Glucose 142 mg/dL (65-100) H 09/09/17 05:39 Calcium 9.0 mg/dL (8.4-10.2) 09/09/17 05:39 Total Bilirubin 0.60 mg/dL (0.1-1.2) 09/08/17 02:37 AST 77 units/L (5-40) H 09/08/17 02:37 ALT 31 units/L (7-56) 09/08/17 02:37 Alkaline Phosphatase 51 units/L (35-129) 09/08/17 02:37 Total Creatine Kinase 612 units/L (30-135) H 09/10/17 09:55 CK-MB (CK-2) 35.6 ng/mL (0.0-4.0) H 09/08/17 07:39 CK-MB (CK-2) Rel Index 1.3 (0-4) 09/08/17 07:39 Troponin T < 0.010 ng/mL (0.00-0.029) 09/08/17 07:39 NT-Pro-B Natriuret Pep 15.61 pg/mL (0-450) 09/08/17 02:37 Total Protein 7.1 g/dL (6.3-8.2) 09/08/17 02:37 Albumin 4.1 g/dL (3.9-5) 09/08/17 02:37 Albumin/Globulin Ratio 1.4 % 09/08/17 02:37 Triglycerides 73 mg/dL (2-149) 09/09/17 05:39 Cholesterol 218 mg/dL (50-199) H 09/09/17 05:39 LDL Cholesterol Direct 94 mg/dL (50-130) 09/09/17 05:39 HDL Cholesterol 110 mg/dL (40-59) H 09/09/17 05:39 Cholesterol/HDL Ratio 1.98 % 09/09/17 05:39 HCG, Qual Negative (Negative) 09/08/17 00:17 Urine Opiates Screen Presumptive negative 09/08/17 12:21 Urine Methadone Screen Presumptive negative 09/08/17 12:21 Ur Barbiturates Screen Presumptive negative 09/08/17 12:21 Ur Phencyclidine Scrn Presumptive negative 09/08/17 12:21 Ur Amphetamines Screen Presumptive positive 09/08/17 12:21 U Benzodiazepines Scrn Presumptive negative 09/08/17 12:21 Urine Cocaine Screen Presumptive negative 09/08/17 12:21 U Marijuana (THC) Screen Presumptive negative 09/08/17 12:21 Drugs of Abuse Note Disclamer 09/08/17 12:21
[2017-09-11] MEDS: BABY ASPIRIN PO SCH (10:00)
--- NOTE | 2017-09-11 11:26 | Progress Note ---
Assessment and Plan Assessment: Chest pain, atypical - ECG with NAF; Doroteo negative for AMI; currently resolved Abnormal/equivocal stress test - findings suggest anterior ischemia but may be artifactual as described in the report. Elevated cpk - ?rhabdo; trending down Intermittent hypotension Illicit drug use - cessation encouraged H/o HIV Plan: Proceed with cardiac CTA today. Await findings. Assessment and plan reviewed with pt at bedside. The patient has been seen in conjunction with Dr. KIMBERLY Fuentes who agrees with the assessment and plan of care. Subjective Date of service: 09/11/17 Principal diagnosis: chest pain,HIV Elevated Doroteo Interval history: pt resting comfortably in bed, no current cardiac complaints. has been NPO since MS. VSS. Objective Last Vital Signs Temp 98.3 F 09/11/17 08:49 Pulse 61 09/11/17 08:49 Resp 18 09/11/17 08:49 BP 95/60 09/11/17 08:49 Pulse Ox 100 09/11/17 08:49 - Physical Examination General: No Apparent Distress HEENT: Positive: PERRL, Normocephaly, Mucus Membranes Moist Neck: Positive: neck supple, Carotid Upstroke (2+), Bruit. Negative: JVD/HJR Cardiac: Positive: Reg Rate and Rhythm, S1/S2 Lungs: Positive: clear to auscultation Neuro: Positive: Grossly Intact Abdomen: Positive: Soft. Negative: Tender Skin: Negative: Rash Musculoskeletal: Normal Range of Motion Extremities: Present: normal. Absent: edema - Imaging and Cardiology EKG: report reviewed, image reviewed Pharmacologic stress test: report reviewed - Telemetry EKG Rhythm: Sinus Rhythm - EKG Sinus rhythms and dysrhythmias: sinus rhythm
[2017-09-11] MEDS ORDERED: LOPRESSOR IV PRN (12:30)
[2017-09-11] MEDS ORDERED: NITROSTAT SL ONE ×2 (12:30→13:53)
[2017-09-11] MEDS ORDERED: LOPRESSOR IV ONE (13:52)
[2017-09-11] MEDS ORDERED: ATROPINE 0.1% (CARDIAC) ONE (13:53)
[2017-09-11] MEDS ORDERED: NACL ONE (13:54)
--- NOTE | 2017-09-11 15:16 | Cat Scan Report ---
Limited CT chest: This exam was primarily performed for evaluation of coronary arteries. Contrast was administered for that exam. Transverse images are obtained from the osiris to the lung bases. No pulmonary nodules, infiltrates, or pleural abnormalities are identified. No obvious hilar or mediastinal adenopathy on visualized images. Of incidental note are bilateral mammary implants. Impressions: No pulmonary abnormalities identified on available images.
[2017-09-12 06:03] LABS: Basophils % (Auto) 0.3 % (0.0-1.8); Eosinophils % (Auto) 1.5 % (0.0-4.3); Hematocrit 34.3 % (30.3-42.9); Hemoglobin 11.2 gm/dl (10.1-14.3); Mean Corpuscular HGB Conc 33 % (30-34); Mean Corpuscular Volume 79 fl (79-97); Platelet Count 316 K/mm3 (140-440); Red Blood Count 4.35 M/mm3 (3.65-5.03); Red Cell Distribution Width 19.2 % (13.2-15.2); White Blood Count 5.1 K/mm3 (4.5-11.0)
[2017-09-12 06:07] LABS: Mean Corpuscular Hemoglobin 26 pg (28-32)
[2017-09-12 06:27] LABS: Alanine Aminotransferase 18 units/L (7-56); Albumin 3.5 g/dL (3.9-5); Albumin/Globulin Ratio 1.3 %; Alkaline Phosphatase 65 units/L (35-129); Anion Gap 16 mmol/L; BUN/Creatinine Ratio 28; Bilirubin,Total < 0.20 mg/dL (0.1-1.2); Blood Urea Nitrogen 14 mg/dL (7-17); Calcium 8.7 mg/dL (8.4-10.2); Carbon Dioxide 26 mmol/L (22-30); Chloride 100.2 mmol/L (98-107); Creatine Kinase 268 units/L (30-135); Glucose 99 mg/dL (65-100); Sodium 138 mmol/L (137-145); Total Protein 6.3 g/dL (6.3-8.2)
[2017-09-12] MEDS: TRIMOX PO SCH (07:06)
--- NOTE | 2017-09-12 08:08 | Discharge Summary ---
Providers - Providers Date of Admission: 09/08/17 07:22 Date of discharge: 09/12/17 Attending physician: WILLY LAYTON 09/08/17 16:27 Consult to Physician [CONS] Routine Consulting Provider: AUSTIN BARNEY Reason For Exam: abnormal stress test Place consult to:: Josy Notified:: Service Phone number called:: [phone] Was contact made?: Yes Time called:: 16:42 Primary care physician: ADOPTION COORDINATOR Hospitalization Condition: Serious Hospital course: Patient os 37 years old female with past medical histroy of HIV /AIDS who presented to the Emergency department for atypical chest pain, sore throat and shortness of breath. Patient was diagnosed with chest pain, Hypertension, Acute pharyngitis, Non traumatic rhabdomyolysis, HIV-AIDS, GERD and Recreational drug use. Patient presented with atypical chest pain, ACS was ruled out, negative cardiac enzymes, ECGs shows normal sinus rythm, CXR WNL. Abnormal/equivocal stress test - findings suggest anterior ischemia but may be artifactual per cardiology. Cardiac CTA unremarkable. Patient chest pain probably from musculoskeletal. Patient urine Positive for Amethamphetamine and Cessation counseling done and strongly advised to quit; she agreed upon course of action. She was treated with IV fluid hydration and antihypertensive medications. Patient treated Amoxicillin and Cepacol lozenges for Acute pharyngitis. Patient completed full course of antibiotic; no further antibiotic needed.Patient is clinically improved and no chest pain at preset time. Patient advised to follow-up with her primary care provider. Discharge Diagnosed Chest Pain due to Costochondritis Hypertension Acute pharyngitis Non traumatic rhabdomyolysis History of HIV-AIDS GERD Recreational drug use Disposition: DC-01 TO HOME OR SELFCARE Time spent for discharge: 33 minutes Core Measure Documentation - Palliative Care Palliative Care/ Comfort Measures: Not Applicable - Core Measures Any of the following diagnoses?: none Exam - Constitutional Vitals: Temp Pulse Resp BP Pulse Ox 98.3 F 69 18 86/42 97 09/12/17 07:38 09/12/17 07:38 09/12/17 07:38 09/12/17 07:38 09/12/17 07:38 General appearance: Present: no acute distress - EENT Eyes: Present: PERRL ENT: hearing intact - Neck Neck: Present: supple - Respiratory Respiratory effort: normal Respiratory: bilateral: CTA - Cardiovascular Rhythm: regular Heart Sounds: Present: S1 & S2 - Extremities Extremities: no ischemia - Abdominal General gastrointestinal: Present: soft, non-tender - Rectal Rectal Exam: deferred - Integumentary Integumentary: Present: clear, warm, dry - Musculoskeletal Musculoskeletal: strength equal bilaterally - Psychiatric Psychiatric: appropriate mood/affect - Neurologic Neurologic: moves all extremities - Allied Health Allied health notes reviewed: nursing Plan Diet: low fat, low cholesterol, low salt Follow up with: PRIMARY CARE, [Primary Care Provider] - 7 Days Prescriptions: Carvedilol [Coreg] 3.125 mg PO BID 30 Days tablet oxyCODONE /ACETAMINOPHEN [Percocet 5/325] 1 tab PO Q6HR PRN #13 tablet PRN Reason: Pain
[2017-09-12] MEDS: KENALOG TP SCH (09:10)
[2017-09-12] MEDS: BABY ASPIRIN PO SCH (09:37)
[2017-09-12] MEDS: COREG PO SCH (10:13)
--- NOTE | 2017-09-12 11:46 | Progress Note ---
Assessment and Plan Assessment: Chest pain, atypical - ECG with NAF; Doroteo negative for AMI; currently resolved Abnormal/equivocal stress test - findings suggest anterior ischemia but may be artifactual as described in the report. Elevated cpk - ?rhabdo; trending down Intermittent hypotension Illicit drug use - cessation encouraged H/o HIV Plan: S/p cardiac CTA yesterday which showed zero calcium score, no evidence of CAD. Currently stable cardiac status. Pt may discharge home from cardiology standpoint. Recommend follow up in our office with Felisha Wiggins NP, within 1-2 weeks of hospital discharge ([phone]). Assessment and plan reviewed with pt at bedside. The patient has been seen in conjunction with Dr. KIMBERLY Fuentes who agrees with the assessment and plan of care. Subjective Date of service: 09/12/17 Principal diagnosis: chest pain,HIV Elevated Doroteo Interval history: pt resting comfortably in bed, no current cardiac complaints. VSS. awaiting discharge today. Objective Last Vital Signs Temp 98.3 F 09/12/17 08:19 Pulse 69 09/12/17 10:13 Resp 18 09/12/17 09:47 BP 86/42 09/12/17 10:13 Pulse Ox 97 09/12/17 09:47 - Physical Examination General: No Apparent Distress HEENT: Positive: PERRL, Normocephaly, Mucus Membranes Moist Neck: Positive: neck supple, Carotid Upstroke (2+), Bruit. Negative: JVD/HJR Cardiac: Positive: Reg Rate and Rhythm, S1/S2 Lungs: Positive: clear to auscultation Neuro: Positive: Grossly Intact Abdomen: Positive: Soft. Negative: Tender Skin: Negative: Rash Musculoskeletal: Normal Range of Motion Extremities: Present: normal. Absent: edema - Labs and Meds Cardiac Enzymes 09/12/17 Range/Units 05:17 AST 18 (5-40) units/L CBC 09/12/17 Range/Units 05:17 WBC 5.1 (4.5-11.0) K/mm3 RBC 4.35 (3.65-5.03) M/mm3 Hgb 11.2 (10.1-14.3) gm/dl Hct 34.3 (30.3-42.9) % Plt Count 316 (140-440) K/mm3 Lymph # 2.1 (1.2-5.4) K/mm3 Lyman # 0.7 (0.0-0.8) K/mm3 Eos # 0.1 (0.0-0.4) K/mm3 Baso # 0.0 (0.0-0.1) K/mm3 Comprehensive Metabolic Panel 09/12/17 Range/Units 05:17 Sodium 138 (137-145) mmol/L Potassium 4.0 (3.6-5.0) mmol/L Chloride 100.2 (98-107) mmol/L Carbon Dioxide 26 (22-30) mmol/L BUN 14 (7-17) mg/dL Creatinine 0.5 L (0.7-1.2) mg/dL Glucose 99 (65-100) mg/dL Calcium 8.7 (8.4-10.2) mg/dL AST 18 (5-40) units/L ALT 18 (7-56) units/L Alkaline Phosphatase 65 (35-129) units/L Total Protein 6.3 (6.3-8.2) g/dL Albumin 3.5 L (3.9-5) g/dL - Imaging and Cardiology EKG: report reviewed, image reviewed - EKG Sinus rhythms and dysrhythmias: sinus rhythm
[2017-09-12 11:48] VITALS: BP 168/59
== END 2017-09-12 13:50 | disposition home or self-care (01) | DRG 205 ==
LOC: ED 23:27 → 4A 09-08 07:22
PROVIDERS: ADMIT Internal Medicine; ATTEND Internal Medicine
DX: M94.0 Chondrocostal junction syndrome [Tietze] (principal); B20 Human immunodeficiency virus [HIV] disease; K21.9 Gastro-esophageal reflux disease without esophagitis; J02.9 Acute pharyngitis, unspecified; M62.82 Rhabdomyolysis; I10 Essential (primary) hypertension; F43.10 Post-traumatic stress disorder, unspecified; F41.9 Anxiety disorder, unspecified; F15.10 Other stimulant abuse, uncomplicated; Z71.51 Drug abuse counseling and surveillance of drug abuser; Z79.899 Other long term (current) drug therapy; Z88.2 Allergy status to sulfonamides; Z82.49 Family history of ischemic heart disease and other diseases of the circulatory system
CPT/HCPCS: 36415; 75572; 78452; 80048; 80053; 80061; 80307; 82550; 82553; 82805; 83880; 84484; 84703; 85025; 85379; 87116; 87430; 93005; 93010; 93017; A9502; J0461; J1885; J2785; J7030; Q9967

== ENCOUNTER 2017-09-14 02:14 | Emergency (ER) | payer MEDICAID ==
[2017-09-14 03:37] LABS: Basophils % (Auto) 0.5 % (0.0-1.8); Eosinophils % (Auto) 1.7 % (0.0-4.3); Hematocrit 33.9 % (30.3-42.9); Hemoglobin 11.1 gm/dl (10.1-14.3); Mean Corpuscular HGB Conc 33 % (30-34); Mean Corpuscular Volume 79 fl (79-97); Platelet Count 304 K/mm3 (140-440); Red Blood Count 4.31 M/mm3 (3.65-5.03); Red Cell Distribution Width 18.6 % (13.2-15.2); White Blood Count 4.9 K/mm3 (4.5-11.0)
[2017-09-14 03:51] LABS: Anion Gap 17 mmol/L; BUN/Creatinine Ratio 20; Blood Urea Nitrogen 12 mg/dL (7-17); Calcium 8.4 mg/dL (8.4-10.2); Carbon Dioxide 25 mmol/L (22-30); Chloride 101.5 mmol/L (98-107); Glucose 92 mg/dL (65-100); Potassium 4.2 mmol/L (3.6-5.0); Sodium 139 mmol/L (137-145)
[2017-09-14 03:58] LABS: Mean Corpuscular Hemoglobin 26 pg (28-32)
[2017-09-14 06:08] LABS: Urine Drugs of Abuse Note Disclamer
[2017-09-14 06:18] LABS: Bilirubin,Urine NEG (Negative); Blood,Urine NEG (Negative); Ketones,Urine NEG (Negative); Leukocyte Esterase,Urine NEG (Negative); Mucus,Urine FEW /HPF; Nitrite,Urine NEG (Negative); Protein,Urine <15 mg/dL mg/dL (Negative); Urobilinogen,Urine < 2.0 mg/dL (<2.0)
--- NOTE | 2017-09-14 07:54 | Emergency Department Report ---
ED General Adult HPI - General Chief complaint: Psych Stated complaint: SUICIDAL THOUGHTS Time Seen by Provider: 09/14/17 07:53 Source: patient Mode of arrival: Ambulatory Limitations: No Limitations - History of Present Illness Initial comments: Patient states "I'm homicidal and suicidal and I need to be stabilized in the hospital." The patient is somewhat guarded as to the location and when her last psychiatric hospitalization was. However, she finally states it was at [facility] but "a long time ago". I suspect this patient has had multiple hospitalizations for her psychiatric illness. She may not be taking her medication correctly. She states that she wants her Seroquel switched to Zoloft. She admits that she has anxiety and believes she is prescribed Adderall for that which of course it is not indicated. Today she presents with apparent somatic symptoms to include a sensation of smothering and chest discomfort associated with a runny nose. She states that she's had these symptoms many times in the past. She is not complaining of chest pain at this juncture. He's had no recent travel no leg pain or swelling. She is HIV positive. She does not report a history of myocardial infarction or coronary artery disease. Her medications also include carvedilol and Percocet as of 09/12/2017. -: hour(s) Location: face (feeling like something was covering her face ), back Radiation: non-radiation (and nonpleuritic) Quality: other (like something covering her) Consistency: constant, now resolved Improves with: none Worsens with: none Associated Symptoms: denies other symptoms, other (congestion nose) Treatments Prior to Arrival: none - Related Data Home Medications Medication Instructions Recorded Confirmed Last Taken QUEtiapine [SEROquel] 200 mg PO QHS MDD 400 09/05/16 09/09/17 10/13/16 Efavirenz/Emtricitab/Tenofovir 600 mg PO QDAY 10/14/16 09/09/17 2 Weeks Ago [Atripla Tablet] ~08/26/17 Dextroamphetamine/Amphetamine 20 mg PO BID 09/09/17 09/09/17 Unknown [Adderall 20 mg Tablet] clonazePAM [Klonopin] 0.5 mg PO DAILY 09/09/17 09/09/17 Unknown Previous Rx's Medication Instructions Recorded Last Taken Type Triamcinolone 0.1% [Kenalog 0.1% 1 applic TP TID #1 tube 08/30/17 Unknown Rx OINT] Aspirin [Aspirin BABY CHEW TAB] 81 mg PO QDAY tab.chew 09/12/17 Unknown Rx Carvedilol [Coreg] 3.125 mg PO BID 30 Days tablet 09/12/17 Unknown Rx Triamcinolone 0.1% [Kenalog 0.1% 1 applic TP TID tube 09/12/17 Unknown Rx CREAM] oxyCODONE /ACETAMINOPHEN [Percocet 1 tab PO Q6HR PRN #13 tablet 09/12/17 Unknown Rx 5/325] Allergies Allergy/AdvReac Type Severity Reaction Status Date / Time influenza virus vaccine, Allergy Swelling Verified 09/14/17 03:02 specific [Influenza Virus Vacc,Specific] Sulfa (Sulfonamide Allergy Swelling Verified 09/14/17 03:02 Antibiotics) sulfamethoxazole Allergy Swelling Verified 09/14/17 03:02 [From Bactrim] trimethoprim [From Bactrim] Allergy Swelling Verified 09/14/17 03:02 ED Review of Systems ROS: Stated complaint: SUICIDAL THOUGHTS Other details as noted in HPI Constitutional: denies: chills, fever Eyes: denies: eye pain, eye discharge, vision change ENT: as per HPI, congestion. denies: ear pain, throat pain Respiratory: denies: cough, shortness of breath, wheezing Cardiovascular: chest pain. denies: palpitations Endocrine: no symptoms reported Gastrointestinal: denies: abdominal pain, nausea, diarrhea Genitourinary: denies: urgency, dysuria, discharge Musculoskeletal: denies: back pain, joint swelling, arthralgia Skin: denies: rash, lesions Neurological: as per HPI. denies: headache, weakness, paresthesias Psychiatric: denies: anxiety, depression Hematological/Lymphatic: denies: easy bleeding, easy bruising ED Past Medical Hx - Past Medical History Previous Medical History?: Yes Hx Hypertension: No Hx Heart Attack/AMI: No Hx Diabetes: No Hx Renal Disease: No Hx Psychiatric Treatment: Yes (PTSD, BIPOLAR, ADHD,anxiety) Hx Asthma: No Hx COPD: No Hx HIV: Yes - Surgical History Past Surgical History?: Yes Hx Coronary Stent: No Hx Pacemaker: No Additional Surgical History: D&C. breast implants. wisdom teeth removed - Social History Smoking Status: Never Smoker - Medications Home Medications: Home Medications Medication Instructions Recorded Confirmed Last Taken Type QUEtiapine [SEROquel] 200 mg PO QHS MDD 400 09/05/16 09/09/17 10/13/16 History Efavirenz/Emtricitab/Tenofovir 600 mg PO QDAY 10/14/16 09/09/17 2 Weeks Ago History [Atripla Tablet] ~08/26/17 Triamcinolone 0.1% [Kenalog 0.1% 1 applic TP TID #1 tube 08/30/17 09/09/17 Unknown Rx OINT] Dextroamphetamine/Amphetamine 20 mg PO BID 09/09/17 09/09/17 Unknown History [Adderall 20 mg Tablet] clonazePAM [Klonopin] 0.5 mg PO DAILY 09/09/17 09/09/17 Unknown History Aspirin [Aspirin BABY CHEW TAB] 81 mg PO QDAY tab.chew 09/12/17 Unknown Rx Carvedilol [Coreg] 3.125 mg PO BID 30 Days tablet 09/12/17 Unknown Rx Triamcinolone 0.1% [Kenalog 0.1% 1 applic TP TID tube 09/12/17 Unknown Rx CREAM] oxyCODONE /ACETAMINOPHEN [Percocet 1 tab PO Q6HR PRN #13 tablet 09/12/17 Unknown Rx 5/325] ED Physical Exam - General Limitations: No Limitations General appearance: alert, in no apparent distress - Head Head exam: Present: atraumatic, normocephalic - Eye Eye exam: Present: normal appearance, PERRL, EOMI. Absent: scleral icterus - ENT ENT exam: Present: mucous membranes moist - Neck Neck exam: Present: normal inspection - Respiratory Respiratory exam: Present: normal lung sounds bilaterally. Absent: respiratory distress - Cardiovascular Cardiovascular Exam: Present: regular rate, normal rhythm. Absent: systolic murmur, diastolic murmur, rubs, gallop - GI/Abdominal GI/Abdominal exam: Present: soft, normal bowel sounds. Absent: distended, tenderness, guarding, rebound, rigid - Extremities Exam Extremities exam: Present: normal inspection - Back Exam Back exam: Present: normal inspection - Neurological Exam Neurological exam: Present: alert, oriented X3, CN II-XII intact. Absent: motor sensory deficit - Psychiatric Psychiatric exam: Present: anxious, flat affect - Skin Skin exam: Present: warm, dry, intact, normal color. Absent: rash ED Course Vital Signs 09/14/17 09/14/17 09/14/17 02:59 05:52 08:09 Temperature 98.3 F 98 F 98.3 F Pulse Rate 67 89 69 Respiratory 16 18 17 Rate Blood Pressure 141/80 Blood Pressure 156/88 [Left] Blood Pressure 105/40 [Right] O2 Sat by Pulse 99 99 99 Oximetry - Reevaluation(s) Reevaluation #1: I will execute a 1013. Consult mental health for placement. The patient has had an ample workup of her chest symptoms. I do not believe that they are due to coronary artery disease. 09/14/17 08:32 09/14/17 08:32 ED Medical Decision Making - Lab Data Result diagrams: 09/14/17 03:17 09/14/17 03:17 Laboratory Results - last 24 hr 09/14/17 09/14/17 09/14/17 03:17 03:17 03:17 WBC 4.9 RBC 4.31 Hgb 11.1 Hct 33.9 MCV 79 MCH 26 L MCHC 33 RDW 18.6 H Plt Count 304 Lymph % (Auto) 41.8 H [place] % (Auto) 12.0 H Eos % (Auto) 1.7 Baso % (Auto) 0.5 Lymph # 2.1 [place] # 0.6 Eos # 0.1 Baso # 0.0 Seg Neutrophils % 44.0 Seg Neutrophils # 2.2 Sodium 139 Potassium 4.2 Chloride 101.5 Carbon Dioxide 25 Anion Gap 17 BUN 12 Creatinine 0.6 L Estimated GFR > 60 BUN/Creatinine Ratio 20 Glucose 92 Calcium 8.4 Troponin T < 0.010 Urine Color Urine Turbidity Urine pH Ur Specific [place] Urine Protein Urine Glucose (UA) Urine Ketones Urine Blood Urine Nitrite Urine Bilirubin Urine Urobilinogen Ur Leukocyte Esterase Urine WBC (Auto) Urine RBC (Auto) U Epithel Cells (Auto) Urine Mucus Urine Opiates Screen Urine Methadone Screen Ur Barbiturates Screen Ur Phencyclidine Scrn Ur Amphetamines Screen U Benzodiazepines Scrn Urine Cocaine Screen U Marijuana (THC) Screen Drugs of Abuse Note Plasma/Serum Alcohol < 0.01 09/14/17 09/14/17 05:52 05:52 WBC RBC Hgb Hct MCV MCH MCHC RDW Plt Count Lymph % (Auto) [place] % (Auto) Eos % (Auto) Baso % (Auto) Lymph # [place] # Eos # Baso # Seg Neutrophils % Seg Neutrophils # Sodium Potassium Chloride Carbon Dioxide Anion Gap BUN Creatinine Estimated GFR BUN/Creatinine Ratio Glucose Calcium Troponin T Urine Color Yellow Urine Turbidity Clear Urine pH 7.0 Ur Specific [place] 1.024 Urine Protein <15 mg/dl Urine Glucose (UA) Neg Urine Ketones Neg Urine Blood Neg Urine Nitrite Neg Urine Bilirubin Neg Urine Urobilinogen < 2.0 Ur Leukocyte Esterase Neg Urine WBC (Auto) 1.0 Urine RBC (Auto) 3.0 U Epithel Cells (Auto) 12.0 Urine Mucus Few Urine Opiates Screen Presumptive negative Urine Methadone Screen Presumptive negative Ur Barbiturates Screen Presumptive negative Ur Phencyclidine Scrn Presumptive negative Ur Amphetamines Screen Presumptive negative U Benzodiazepines Scrn Presumptive negative Urine Cocaine Screen Presumptive negative U Marijuana (THC) Screen Presumptive negative Drugs of Abuse Note Disclamer Plasma/Serum Alcohol - EKG Data -: EKG Interpreted by Me EKG shows normal: sinus rhythm, axis, intervals, QRS complexes, ST-T waves Rate: normal - EKG Data Interpretation: normal EKG Critical care attestation.: If time is entered above; I have spent that time in minutes in the direct care of this critically ill patient, excluding procedure time. ED Disposition Clinical Impression: Atypical chest pain Bipolar disorder Qualifiers: Active/Remission status: currently active Current bipolar episode type: mixed Current episode severity: severe Psychotic features: without psychotic features Qualified Code(s): F31.63 - Bipolar disorder, current episode mixed, severe, without psychotic features Disposition: DC/TX-65 PSY HOSP/PSY UNIT Is pt being admited?: No Does the pt Need Aspirin: No Condition: Stable Instructions: Chest Pain (ED) Referrals: PRIMARY CARE [Primary Care Provider] - 3-5 Days Time of Disposition: 08:42
[2017-09-14 13:01] VITALS: BP 110/64
--- NOTE | 2017-09-14 14:01 | Consultation ---
History of Present Illness - Reason for Consult Consult date: 09/14/17 Reason for consult: Mental Health Evaluation Requesting physician: BOUBACAR GIRALDO - Chief Complaint Chief complaint: "Why you all bothering me" - History of Present Psychiatric Illness 37 y.o AA female presenting to [facility] for HI/SI's. Today patient is irritable and delusional during the assessment. She stated that she came to the hospital to be stabilized because she cannot breathe (delusional). She stated that this has happened before. The patient was examined by the ER physician with no signs of a pulmonary issue per his note. The patient went on a tangent about being suicidal. She would not confirm or deny having a suicide plan or any previous attempts. She reported not sleeping for several days prior to coming to the hospital. She denies HI's and VH's. She stated that she hear voices, but they are inappropriate to repeat. She denies a poor appetite, recreational drug use, and alcohol consumption (etoh). Medications and Allergies Allergies Allergy/AdvReac Type Severity Reaction Status Date / Time influenza virus vaccine, Allergy Swelling Verified 09/14/17 03:02 specific [Influenza Virus Vacc,Specific] Sulfa (Sulfonamide Allergy Swelling Verified 09/14/17 03:02 Antibiotics) sulfamethoxazole Allergy Swelling Verified 09/14/17 03:02 [From Bactrim] trimethoprim [From Bactrim] Allergy Swelling Verified 09/14/17 03:02 Home Medications Medication Instructions Recorded Confirmed Last Taken Type QUEtiapine [SEROquel] 200 mg PO QHS MDD 400 09/05/16 09/09/17 10/13/16 History Efavirenz/Emtricitab/Tenofovir 600 mg PO QDAY 10/14/16 09/09/17 2 Weeks Ago History [Atripla Tablet] ~08/26/17 Triamcinolone 0.1% [Kenalog 0.1% 1 applic TP TID #1 tube 08/30/17 09/09/17 Unknown Rx OINT] Dextroamphetamine/Amphetamine 20 mg PO BID 09/09/17 09/09/17 Unknown History [Adderall 20 mg Tablet] clonazePAM [Klonopin] 0.5 mg PO DAILY 09/09/17 09/09/17 Unknown History Aspirin [Aspirin BABY CHEW TAB] 81 mg PO QDAY tab.chew 09/12/17 Unknown Rx Carvedilol [Coreg] 3.125 mg PO BID 30 Days tablet 09/12/17 Unknown Rx Triamcinolone 0.1% [Kenalog 0.1% 1 applic TP TID tube 09/12/17 Unknown Rx CREAM] oxyCODONE /ACETAMINOPHEN [Percocet 1 tab PO Q6HR PRN #13 tablet 09/12/17 Unknown Rx 5/325] Past psychiatric history - Past Medical History Past Medical History: HIV/AIDS Past Surgical History: No surgical history - past Psychiatric treatment and history psychiatric treatment history: Multiple inpatient psy settings. Denies a fam psy hx. - Social History Social history: Lives alone Mental Status Exam - Vital signs Last Vital Signs Temp 98.6 F 09/14/17 13:00 Pulse 71 09/14/17 13:00 Resp 18 09/14/17 13:00 BP 110/64 09/14/17 13:00 Pulse Ox 99 09/14/17 08:09 - Exam Narrative exam: MSE: Appearance: agitated Behavior: poor eye contact Speech: loud tone Mood: irritable Affect: congruent to mood Thought Process: circumstantial Thought Content: denies HI's and VH's, delusional, disorganized Motor Activity: lying in bed Cognition: A/O x3 Insight: poor Judgment: poor Results Result Diagrams: 09/14/17 03:17 09/14/17 03:17 Abnormal lab results 09/14/17 09/14/17 Range/Units 03:17 03:17 MCH 26 L (28-32) pg RDW 18.6 H (13.2-15.2) % Lymph % (Auto) 41.8 H (13.4-35.0) % [place] % (Auto) 12.0 H (0.0-7.3) % Creatinine 0.6 L (0.7-1.2) mg/dL All other labs normal. Assessment and Plan Assessment and plan: Impression: Unspecified Mood DO with psy features. Today patient is irritable and delusional during the assessment. She endorses SI's. DDx: R/O Bipolar, R/O Schizoaffective DO Recommendation/Plan: Continue 1013 with placement to [facility] today.
== END 2017-09-14 18:30 ==
LOC: ED 02:14 → EEVIPCON 02:14 → ED 18:30
DX: F31.63 Bipolar disorder, current episode mixed, severe, without psychotic features (principal); R07.89 Other chest pain
CPT/HCPCS: 36415; 80048; 80307; 81001; 84484; 85025; 93005; 93010; 99285; G0480; 80320

== ENCOUNTER 2017-09-23 18:01 | Emergency (ER) | payer MEDICAID ==
[2017-09-23 19:02] LABS: Basophils % (Auto) 0.3 % (0.0-1.8); Eosinophils % (Auto) 0.1 % (0.0-4.3); Hematocrit 36.5 % (30.3-42.9); Hemoglobin 11.8 gm/dl (10.1-14.3); Mean Corpuscular HGB Conc 32 % (30-34); Mean Corpuscular Volume 78 fl (79-97); Platelet Count 330 K/mm3 (140-440); Red Blood Count 4.69 M/mm3 (3.65-5.03); Red Cell Distribution Width 19.2 % (13.2-15.2); White Blood Count 6.8 K/mm3 (4.5-11.0)
[2017-09-23 19:20] LABS: Anion Gap 21 mmol/L; BUN/Creatinine Ratio 17; Blood Urea Nitrogen 12 mg/dL (7-17); Calcium 9.4 mg/dL (8.4-10.2); Carbon Dioxide 22 mmol/L (22-30); Chloride 103.5 mmol/L (98-107); Glucose 105 mg/dL (65-100); Potassium 4.1 mmol/L (3.6-5.0); Sodium 142 mmol/L (137-145)
[2017-09-23 19:23] LABS: Mean Corpuscular Hemoglobin 25 pg (28-32)
[2017-09-23 21:36] LABS: Urine Drugs of Abuse Note Disclamer
[2017-09-23 21:59] LABS: Bilirubin,Urine NEG (Negative); Blood,Urine NEG (Negative); Ketones,Urine 20 mg/dL (Negative); Leukocyte Esterase,Urine NEG (Negative); Mucus,Urine 2+ /HPF; Nitrite,Urine NEG (Negative)
[2017-09-24] MEDS ORDERED: HALDOL IM PRN (01:50)
[2017-09-24] MEDS ORDERED: ATIVAN IM PRN (01:50)
--- NOTE | 2017-09-24 01:56 | Emergency Department Report ---
ED Psych HPI - General Chief Complaint: Psych Stated Complaint: SUICIDAL AND HOMICIDAL Time Seen by Provider: 09/24/17 01:48 Source: patient, RN notes reviewed, old records reviewed Mode of arrival: Ambulatory Limitations: No Limitations - History of Present Illness Initial Comments: This is a 37-year-old female. I have evaluated this patient in the past. Patient has a past medical history of psychosis, HIV, recently admitted to the hospital for chest pain risk stratification, had a negative nuclear stress test , patient presents to the ER complaining of homicidality and suicidality. Her symptoms are constant. She does not describe radiation, exacerbating or relieving factors. Patient also complains of feeling insect bites. Patient denies using cocaine. She denies overdose. MD Complaint: suicidal ideation -: Gradual Associated Psychiatric Symptoms: suicidal ideation, homicidal ideation History of same: Yes Quality: constant Improves With: none Worsens With: none Context: recent drug abuse Associated Symptoms: denies other symptoms If Self Harm: has plan - Related Data Home Medications Medication Instructions Recorded Confirmed Last Taken QUEtiapine [SEROquel] 200 mg PO QHS MDD 400 09/05/16 09/09/17 10/13/16 Efavirenz/Emtricitab/Tenofovir 600 mg PO QDAY 10/14/16 09/09/17 2 Weeks Ago [Atripla Tablet] ~08/26/17 Dextroamphetamine/Amphetamine 20 mg PO BID 09/09/17 09/09/17 Unknown [Adderall 20 mg Tablet] clonazePAM [Klonopin] 0.5 mg PO DAILY 09/09/17 09/09/17 Unknown Previous Rx's Medication Instructions Recorded Last Taken Type Triamcinolone 0.1% [Kenalog 0.1% 1 applic TP TID #1 tube 08/30/17 Unknown Rx OINT] Aspirin [Aspirin BABY CHEW TAB] 81 mg PO QDAY tab.chew 09/12/17 Unknown Rx Carvedilol [Coreg] 3.125 mg PO BID 30 Days tablet 09/12/17 Unknown Rx Triamcinolone 0.1% [Kenalog 0.1% 1 applic TP TID tube 09/12/17 Unknown Rx CREAM] oxyCODONE /ACETAMINOPHEN [Percocet 1 tab PO Q6HR PRN #13 tablet 09/12/17 Unknown Rx 5/325] Allergies Allergy/AdvReac Type Severity Reaction Status Date / Time influenza virus vaccine, Allergy Swelling Verified 09/24/17 03:08 specific [Influenza Virus Vacc,Specific] Sulfa (Sulfonamide Allergy Swelling Verified 09/24/17 03:08 Antibiotics) sulfamethoxazole Allergy Swelling Verified 09/24/17 03:08 [From Bactrim] trimethoprim [From Bactrim] Allergy Swelling Verified 09/24/17 03:08 ED Review of Systems ROS: Stated complaint: SUICIDAL AND HOMICIDAL Other details as noted in HPI Constitutional: denies: fever Eyes: denies: eye discharge ENT: denies: epistaxis Respiratory: denies: cough Cardiovascular: denies: chest pain Gastrointestinal: denies: abdominal pain Genitourinary: denies: dysuria Musculoskeletal: as per HPI Skin: as per HPI Neurological: as per HPI. denies: weakness Psychiatric: homicidal thoughts, suicidal thoughts ED Past Medical Hx - Past Medical History Hx Hypertension: No Hx Heart Attack/AMI: No Hx Diabetes: No Hx Renal Disease: No Hx Psychiatric Treatment: Yes (PTSD, BIPOLAR, ADHD,anxiety) Hx Asthma: No Hx COPD: No Hx HIV: Yes - Surgical History Hx Coronary Stent: No Hx Pacemaker: No Additional Surgical History: D&C. breast implants. wisdom teeth removed - Social History Smoking Status: Never Smoker Substance Use Type: None - Medications Home Medications: Home Medications Medication Instructions Recorded Confirmed Last Taken Type QUEtiapine [SEROquel] 200 mg PO QHS MDD 400 09/05/16 09/09/17 10/13/16 History Efavirenz/Emtricitab/Tenofovir 600 mg PO QDAY 10/14/16 09/09/17 2 Weeks Ago History [Atripla Tablet] ~08/26/17 Triamcinolone 0.1% [Kenalog 0.1% 1 applic TP TID #1 tube 08/30/17 09/09/17 Unknown Rx OINT] Dextroamphetamine/Amphetamine 20 mg PO BID 09/09/17 09/09/17 Unknown History [Adderall 20 mg Tablet] clonazePAM [Klonopin] 0.5 mg PO DAILY 09/09/17 09/09/17 Unknown History Aspirin [Aspirin BABY CHEW TAB] 81 mg PO QDAY tab.chew 09/12/17 Unknown Rx Carvedilol [Coreg] 3.125 mg PO BID 30 Days tablet 11/28/17 Unknown Rx Triamcinolone 0.1% [Kenalog 0.1% 1 applic TP TID tube 09/12/17 Unknown Rx CREAM] oxyCODONE /ACETAMINOPHEN [Percocet 1 tab PO Q6HR PRN #13 tablet 09/12/17 Unknown Rx 5/325] ED Physical Exam - General Limitations: No Limitations General appearance: alert, in no apparent distress - Head Head exam: Present: atraumatic, normocephalic - Eye Eye exam: Present: normal appearance, EOMI. Absent: nystagmus - ENT ENT exam: Present: normal exam, normal orophraynx, mucous membranes moist, normal external ear exam - Neck Neck exam: Present: normal inspection, full ROM - Respiratory Respiratory exam: Present: normal lung sounds bilaterally. Absent: respiratory distress, chest wall tenderness - Cardiovascular Cardiovascular Exam: Present: regular rate, normal rhythm, normal heart sounds. Absent: systolic murmur, diastolic murmur, rubs, gallop - GI/Abdominal GI/Abdominal exam: Present: soft, normal bowel sounds. Absent: distended, tenderness, guarding, rebound, rigid, pulsatile mass - Extremities Exam Extremities exam: Present: normal inspection, full ROM. Absent: tenderness, calf tenderness - Back Exam Back exam: Present: normal inspection, full ROM. Absent: tenderness, CVA tenderness (R), paraspinal tenderness, vertebral tenderness - Neurological Exam Neurological exam: Present: alert, oriented X3, CN II-XII intact, normal gait, other (Extraocular movements intact. Tongue midline. No facial droop. Facial sensation intact to light touch in the V1, V2, V3 distribution bilaterally. 5 and 5 strength in 4 extremities.. Sensation is intact to light touch in 4 extremities.). Absent: motor sensory deficit - Psychiatric Psychiatric exam: Present: agitated, homicidal ideation, suicidal ideation - Skin Skin exam: Present: warm, dry, intact, normal color. Absent: rash ED Course Vital Signs 09/23/17 09/23/17 09/24/17 18:18 23:51 04:11 Temperature 98.4 F 97.8 F Pulse Rate 85 80 Respiratory 16 14 20 Rate Blood Pressure 157/87 175/83 Blood Pressure [Right] O2 Sat by Pulse 97 97 Oximetry 09/24/17 04:22 Temperature 98.0 F Pulse Rate 98 H Respiratory 20 Rate Blood Pressure Blood Pressure 175/76 [Right] O2 Sat by Pulse 99 Oximetry - Reevaluation(s) Reevaluation #1: 09/24/17 02:55 Creatinine kinase found to be elevated at 807. This does not require IV fluids. it will decrease on its own with oral hydration. ED Medical Decision Making - Lab Data Result diagrams: 09/23/17 18:28 09/23/17 18:28 Vital Signs 09/23/17 09/23/17 18:18 23:51 Temperature 98.4 F 97.8 F Pulse Rate 85 80 Respiratory 16 14 Rate Blood Pressure 157/87 175/83 O2 Sat by Pulse 97 97 Oximetry Temp Pulse Resp BP Pulse Ox 97.8 F 80 14 175/83 97 09/23/17 23:51 09/23/17 23:51 09/23/17 23:51 09/23/17 23:51 09/23/17 23:51 Lab Results 09/23/17 09/23/17 09/23/17 Range/Units 18:28 18:28 18:28 WBC 6.8 (4.5-11.0) K/mm3 RBC 4.69 (3.65-5.03) M/mm3 Hgb 11.8 (10.1-14.3) gm/dl Hct 36.5 (30.3-42.9) % MCV 78 L (79-97) fl MCH 25 L (28-32) pg MCHC 32 (30-34) % RDW 19.2 H (13.2-15.2) % Plt Count 330 (140-440) K/mm3 Lymph % (Auto) 26.1 (13.4-35.0) % [place] % (Auto) 8.7 H (0.0-7.3) % Eos % (Auto) 0.1 (0.0-4.3) % Baso % (Auto) 0.3 (0.0-1.8) % Lymph # 1.8 (1.2-5.4) K/mm3 [place] # 0.6 (0.0-0.8) K/mm3 Eos # 0.0 (0.0-0.4) K/mm3 Baso # 0.0 (0.0-0.1) K/mm3 Seg Neutrophils % 64.8 (40.0-70.0) % Seg Neutrophils # 4.4 (1.8-7.7) K/mm3 Sodium 142 (137-145) mmol/L Potassium 4.1 (3.6-5.0) mmol/L Chloride 103.5 (98-107) mmol/L Carbon Dioxide 22 (22-30) mmol/L Anion Gap 21 mmol/L BUN 12 (7-17) mg/dL Creatinine 0.7 (0.7-1.2) mg/dL Estimated GFR > 60 ml/min BUN/Creatinine Ratio 17 % Glucose 105 H (65-100) mg/dL Calcium 9.4 (8.4-10.2) mg/dL Total Creatine Kinase (30-135) units/L Urine Color (Yellow) Urine Turbidity (Clear) Urine pH (5.0-7.0) Ur Specific [place] (1.003-1.030) Urine Protein (Negative) mg/dL Urine Glucose (UA) (Negative) mg/dL Urine Ketones (Negative) mg/dL Urine Blood (Negative) Urine Nitrite (Negative) Urine Bilirubin (Negative) Urine Urobilinogen (<2.0) mg/dL Ur Leukocyte Esterase (Negative) Urine WBC (Auto) (0.0-6.0) /HPF Urine RBC (Auto) (0.0-6.0) /HPF U Epithel Cells (Auto) (0-13.0) /HPF Urine Mucus /HPF Salicylates (2.8-20.0) mg/dL Urine Opiates Screen Urine Methadone Screen Acetaminophen (10.0-30.0) ug/mL Ur Barbiturates Screen Ur Phencyclidine Scrn Ur Amphetamines Screen U Benzodiazepines Scrn Urine Cocaine Screen U Marijuana (THC) Screen Drugs of Abuse Note Plasma/Serum Alcohol < 0.01 (0-0.07) gm% 09/23/17 09/23/17 09/24/17 Range/Units 21:29 21:29 02:02 WBC (4.5-11.0) K/mm3 RBC (3.65-5.03) M/mm3 Hgb (10.1-14.3) gm/dl Hct (30.3-42.9) % MCV (79-97) fl MCH (28-32) pg MCHC (30-34) % RDW (13.2-15.2) % Plt Count (140-440) K/mm3 Lymph % (Auto) (13.4-35.0) % [place] % (Auto) (0.0-7.3) % Eos % (Auto) (0.0-4.3) % Baso % (Auto) (0.0-1.8) % Lymph # (1.2-5.4) K/mm3 [place] # (0.0-0.8) K/mm3 Eos # (0.0-0.4) K/mm3 Baso # (0.0-0.1) K/mm3 Seg Neutrophils % (40.0-70.0) % Seg Neutrophils # (1.8-7.7) K/mm3 Sodium (137-145) mmol/L Potassium (3.6-5.0) mmol/L Chloride (98-107) mmol/L Carbon Dioxide (22-30) mmol/L Anion Gap mmol/L BUN (7-17) mg/dL Creatinine (0.7-1.2) mg/dL Estimated GFR ml/min BUN/Creatinine Ratio % Glucose (65-100) mg/dL Calcium (8.4-10.2) mg/dL Total Creatine Kinase 807 H (30-135) units/L Urine Color Yellow (Yellow) Urine Turbidity Clear (Clear) Urine pH 5.0 (5.0-7.0) Ur Specific [place]o 1.035 H (1.003-1.030) Urine Protein 30 mg/dl (Negative) mg/dL Urine Glucose (UA) Neg (Negative) mg/dL Urine Ketones 20 (Negative) mg/dL Urine Blood Neg (Negative) Urine Nitrite Neg (Negative) Urine Bilirubin Neg (Negative) Urine Urobilinogen 2.0 (<2.0) mg/dL Ur Leukocyte Esterase Neg (Negative) Urine WBC (Auto) 1.0 (0.0-6.0) /HPF Urine RBC (Auto) 5.0 (0.0-6.0) /HPF U Epithel Cells (Auto) 5.0 (0-13.0) /HPF Urine Mucus 2+ /HPF Salicylates (2.8-20.0) mg/dL Urine Opiates Screen Presumptive negative Urine Methadone Screen Presumptive negative Acetaminophen (10.0-30.0) ug/mL Ur Barbiturates Screen Presumptive negative Ur Phencyclidine Scrn Presumptive negative Ur Amphetamines Screen Presumptive negative U Benzodiazepines Scrn Presumptive negative Urine Cocaine Screen Presumptive positive U Marijuana (THC) Screen Presumptive negative Drugs of Abuse Note Disclamer Plasma/Serum Alcohol (0-0.07) gm% 09/24/17 09/24/17 Range/Units 02:02 02:02 WBC (4.5-11.0) K/mm3 RBC (3.65-5.03) M/mm3 Hgb (10.1-14.3) gm/dl Hct (30.3-42.9) % MCV (79-97) fl MCH (28-32) pg MCHC (30-34) % RDW (13.2-15.2) % Plt Count (140-440) K/mm3 Lymph % (Auto) (13.4-35.0) % [place] % (Auto) (0.0-7.3) % Eos % (Auto) (0.0-4.3) % Baso % (Auto) (0.0-1.8) % Lymph # (1.2-5.4) K/mm3 [place] # (0.0-0.8) K/mm3 Eos # (0.0-0.4) K/mm3 Baso # (0.0-0.1) K/mm3 Seg Neutrophils % (40.0-70.0) % Seg Neutrophils # (1.8-7.7) K/mm3 Sodium (137-145) mmol/L Potassium (3.6-5.0) mmol/L Chloride (98-107) mmol/L Carbon Dioxide (22-30) mmol/L Anion Gap mmol/L BUN (7-17) mg/dL Creatinine (0.7-1.2) mg/dL Estimated GFR ml/min BUN/Creatinine Ratio % Glucose (65-100) mg/dL Calcium (8.4-10.2) mg/dL Total Creatine Kinase (30-135) units/L Urine Color (Yellow) Urine Turbidity (Clear) Urine pH (5.0-7.0) Ur Specific [place] (1.003-1.030) Urine Protein (Negative) mg/dL Urine Glucose (UA) (Negative) mg/dL Urine Ketones (Negative) mg/dL Urine Blood (Negative) Urine Nitrite (Negative) Urine Bilirubin (Negative) Urine Urobilinogen (<2.0) mg/dL Ur Leukocyte Esterase (Negative) Urine WBC (Auto) (0.0-6.0) /HPF Urine RBC (Auto) (0.0-6.0) /HPF U Epithel Cells (Auto) (0-13.0) /HPF Urine Mucus /HPF Salicylates 0.4 L (2.8-20.0) mg/dL Urine Opiates Screen Urine Methadone Screen Acetaminophen < 15.0 (10.0-30.0) ug/mL Ur Barbiturates Screen Ur Phencyclidine Scrn Ur Amphetamines Screen U Benzodiazepines Scrn Urine Cocaine Screen U Marijuana (THC) Screen Drugs of Abuse Note Plasma/Serum Alcohol (0-0.07) gm% - Medical Decision Making Differential diagnosis, including but not limited to: Medical clearance for psychiatric placement, overdose, psychiatric disease Assessment and plan: 37-year-old female with homicidality or suicidality. Patient is afebrile with reassuring vital signs with exception of hypertension. Patient has a nonfocal neurologic examination, with a GCS of 15, NIH score of 0. If patient did not require 1013, which this provider has already filled out , patient will be discharged to follow up with outpatient primary care doctor for her elevated blood pressure. There is no acute medical indication to dramatically decreased patient's blood pressure, as there is no immediate medical benefit. Laboratory studies reviewed, unremarkable, patient placed on a 1013, we will continue her current outpatient medications, at this point in time, it is not appear to be an immediate medical contraindication to psychiatric admission/ evaluation and consultation for her suicidality. Crisis team has been paged. Critical care attestation.: If time is entered above; I have spent that time in minutes in the direct care of this critically ill patient, excluding procedure time. ED Disposition Clinical Impression: Psychosis, Suicidal behavior, Medical clearance for psychiatric admission Disposition: [id number]/TX-65 PSY HOSP/PSY UNIT Is pt being admited?: No Does the pt Need Aspirin: No Condition: Good Referrals: PRIMARY CARE, [Primary Care Provider] - 3-5 Days
[2017-09-24] MEDS: COREG PO SCH ×3 (04:06→23:08)
[2017-09-24] MEDS ORDERED: ATRIPLA (NF) PO SCH (10:00)
[2017-09-24] MEDS: BABY ASPIRIN PO SCH (11:06)
[2017-09-24] MEDS: VIREAD PO SCH (11:06)
[2017-09-24] MEDS: SUSTIVA PO SCH (11:06)
[2017-09-24] MEDS: EMTRIVA PO SCH (11:06)
--- NOTE | 2017-09-24 19:09 | Consultation ---
History of Present Illness - Reason for Consult Consult date: 09/24/17 Reason for consult: psychiatric evaluation - Chief Complaint Chief complaint: "I am frustrated." Ms. Hidalgo is a 37-year-old female seen in the ER for psychiatric evaluation. Per the record: Patient has a past medical history of psychosis, HIV, recently admitted to the hospital for chest pain risk stratification, had a negative nuclear stress test. She has complaints of homicidality and suicidality and is on 1013. She denies suicide attempt. Patient also complains of feeling insect bites. Patient denies using cocaine but is positive for it. She has been in [place] for 2 months from [place]. She was inpatient since this time. She reports a history of bipolar, PTSD, and ADHD. She states her doctor is at [place]. She states her medications are Adderall 30mg bid, seroquel 200mg hs, zoloft 50mg daily, and klonopin 0.5mg bid. She has complaints of depression, anger, suicidal ideation, homicidal ideation, and auditory/visual hallucinations. She states she does not want to share details. Medications and Allergies Allergies Allergy/AdvReac Type Severity Reaction Status Date / Time influenza virus vaccine, Allergy Swelling Verified 09/24/17 03:08 specific [Influenza Virus Vacc,Specific] Sulfa (Sulfonamide Allergy Swelling Verified 09/24/17 03:08 Antibiotics) sulfamethoxazole Allergy Swelling Verified 09/24/17 03:08 [From Bactrim] trimethoprim [From Bactrim] Allergy Swelling Verified 09/24/17 03:08 Home Medications Medication Instructions Recorded Confirmed Last Taken Type QUEtiapine [SEROquel] 200 mg PO QHS MDD 400 09/05/16 09/09/17 10/13/16 History Efavirenz/Emtricitab/Tenofovir 600 mg PO QDAY 10/14/16 09/09/17 2 Weeks Ago History [Atripla Tablet] ~08/26/17 Triamcinolone 0.1% [Kenalog 0.1% 1 applic TP TID #1 tube 08/30/17 09/09/17 Unknown Rx OINT] Dextroamphetamine/Amphetamine 20 mg PO BID 09/09/17 09/09/17 Unknown History [Adderall 20 mg Tablet] clonazePAM [Klonopin] 0.5 mg PO DAILY 09/09/17 09/09/17 Unknown History Aspirin [Aspirin BABY CHEW TAB] 81 mg PO QDAY tab.chew 09/12/17 Unknown Rx Carvedilol [Coreg] 3.125 mg PO BID 30 Days tablet 09/12/17 Unknown Rx Triamcinolone 0.1% [Kenalog 0.1% 1 applic TP TID tube 09/12/17 Unknown Rx CREAM] oxyCODONE /ACETAMINOPHEN [Percocet 1 tab PO Q6HR PRN #13 tablet 09/12/17 Unknown Rx 5/325] Active Meds: Active Medications Aspirin (Baby Aspirin) 81 mg PO QDAY [facility] Last Admin: 09/24/17 11:06 Dose: 81 mg Carvedilol (Coreg) 3.125 mg PO BID [facility] Last Admin: 09/24/17 11:28 Dose: Not Given Clonazepam (Klonopin) 0.5 mg PO DAILY [facility] Last Admin: 09/24/17 11:27 Dose: 0.5 mg Efavirenz (Sustiva) 600 mg PO DAILY [facility] Last Admin: 09/24/17 11:06 Dose: 600 mg Emtricitabine (Emtriva) 200 mg PO QDAY [facility] Last Admin: 09/24/17 11:06 Dose: 200 mg Haloperidol Lactate (Haldol) 5 mg IM Q6HR PRN PRN Reason: Agitation Lorazepam (Ativan) 2 mg IM Q4HR PRN PRN Reason: Agitation Quetiapine Fumarate (Seroquel) 200 mg PO QHS [facility] Tenofovir Disoproxil Fumarate (Viread) 300 mg PO QDAY [facility] Last Admin: 09/24/17 11:06 Dose: 300 mg Past psychiatric history - Past Medical History Past Medical History: other (the record indicates a history of HIV (she would not discuss). Sees infectious disease specialist 10/2017) - past Psychiatric treatment and history Psych: Bipolar - Social History Social history: other (unk) Mental Status Exam - Vital signs Last Vital Signs Temp 98.0 F 09/24/17 04:22 Pulse 83 09/24/17 11:28 Resp 20 09/24/17 04:22 BP 102/88 09/24/17 11:28 Pulse Ox 99 09/24/17 04:22 - Exam Orientation: time, place, person Affect: depressed, agitated Mood: congruent with affect Thought content: other (suicidal & homicidal ideation. declines to discuss details) Perceptions: visual, auditory Speech: normal rate and pattern Concentration: focused Motor activity: normal Level of consciousness: alert Memory: Intact Sleep Symptoms: Difficulty Falling Asleep Appetite: increased Interaction: irritable, guarded Results Result Diagrams: 09/23/17 18:28 09/23/17 18:28 Abnormal lab results 09/23/17 09/23/17 09/23/17 Range/Units 18:28 18:28 21:29 MCV 78 L (79-97) fl MCH 25 L (28-32) pg RDW 19.2 H (13.2-15.2) % Glucose 105 H (65-100) mg/dL Total Creatine Kinase (30-135) units/L Ur Specific [place] 1.035 H (1.003-1.030) Salicylates (2.8-20.0) mg/dL 09/24/17 09/24/17 Range/Units 02:02 02:02 MCV (79-97) fl MCH (28-32) pg RDW (13.2-15.2) % Glucose (65-100) mg/dL Total Creatine Kinase 807 H (30-135) units/L Ur Specific [place] (1.003-1.030) Salicylates 0.4 L (2.8-20.0) mg/dL All other labs normal. Assessment and Plan Assessment and plan: Impression: suicidal and homicidal ideation. She declined to discuss details. bipolar disorder, unspecified PTSD She reports a history of ADHD stimulant use d/o (cocaine) ddx: substance induced mood/psychotic disorder Recommendation: Continue 1013 and transfer to inpatient psychiatric facility for stabilization Restart home medications of seroquel 200mg hs for mood/psychotic symptoms Klonopin 0.5mg daily prescription will be continued for now but is not recommended for prison use. Hold zoloft as this could destabilize her mood. Hold Adderall. Her UDS is positive for cocaine. Adderall is contraindicated in active substance users.
[2017-09-25] MEDS: COREG PO SCH ×2 (11:25→21:51)
[2017-09-25] MEDS: BABY ASPIRIN PO SCH (11:25)
[2017-09-25] MEDS: SUSTIVA PO SCH (11:26)
[2017-09-25] MEDS: VIREAD PO SCH (11:26)
[2017-09-25] MEDS: EMTRIVA PO SCH (11:39)
--- NOTE | 2017-09-25 15:10 | Progress Note ---
Subjective - Reason for Consult Consult date: 09/25/17 Reason for consult: Psychiatry Follow-up - Chief Complaint Chief complaint: "The insects are on me" Ms. Hidalgo is a 37-year-old female seen in the ER for psychiatric evaluation. Per the record: Patient has a past medical history of psychosis, HIV , recently admitted to the hospital for chest pain risk stratification, had a negative nuclear stress test. Today patient is calm during the assessment. She continue to believe bugs are crawling on her (formication). She had to be redirected several times to keep on her topic. She would not confirm or deny SI/ HI's. Mental Status Exam - Vital signs Last Vital Signs Temp 98.1 F 09/25/17 09:57 Pulse 77 09/25/17 11:25 Resp 20 09/25/17 09:59 BP 115/64 09/25/17 11:25 Pulse Ox 100 09/25/17 09:59 - Exam Narrative exam: MSE: Appearance: calm, cooperative Behavior: regular eye contact Speech: regular rate and tone Mood: "okay" Affect: perseverance Thought Process: tangential Thought Content: denies VH's, delusional Motor Activity: ambulatory Cognition: A/Ox3 Insight: poor Judgment: poor Assessment and Plan Impression: Bipolar DO. PTSD unspecified - Patient does not want to discuss. Substance Use DO (cocaine). Hx of ADHD. Today patient is calm during the assessment. Patient experiencing formication. DDx: Substance Induced Mood/Psychotic DO Recommendation/Plan: Continue 1013 and transfer to inpatient psychiatric facility for stabilization. 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 Discussed possible metabolic side effects of Seroquel with patient. May increase Seroquel in 24 hours once reassessed.
--- NOTE | 2017-09-26 10:17 | Progress Note ---
Subjective - Reason for Consult Consult date: 09/26/17 Reason for consult: Psychiatry Follow-up - Chief Complaint Chief complaint: "I'm okay" Ms. Hidalgo is a 37-year-old female seen in the ER for psychiatric evaluation. Per the record: Patient has a past medical history of psychosis, HIV , recently admitted to the hospital for chest pain risk stratification, had a negative nuclear stress test. Today patient is calm during the assessment. She stated that the insects crawling on her skin has "decreased." She stated, "I don 't feel them as much today." She denies SI/HI's and AVH's. She denies any side effects of her medications. Mental Status Exam - Vital signs Last Vital Signs Temp 98.7 F 09/25/17 21:30 Pulse 72 09/25/17 21:30 Resp 18 09/25/17 21:30 BP 111/58 09/25/17 21:30 Pulse Ox 99 09/25/17 21:30 - Exam Narrative exam: MSE: Appearance: calm Behavior: regular eye contact Speech: regular rate and tone Mood: "okay" Affect: congruent to mood Thought Process: circumstantial Thought Content: denies SI/HI's and AVH's, delusional Motor Activity: ambulatory Cognition: A/Ox3 Insight: poor Judgment: poor Assessment and Plan Impression: Bipolar DO. PTSD unspecified - Patient does not want to discuss. Substance Use DO (cocaine). Hx of ADHD. Today patient is calm during the assessment. Patient experiencing formication. DDx: Substance Induced Mood/Psychotic DO Recommendation/Plan: Continue 1013 and transfer to inpatient psychiatric facility for stabilization. Continue Seroquel 200 mg PO HS for mood/psychosis and Klonopin 0.5mg PO daily, but not recommended for half-way use. Discussed possible metabolic side effects of Seroquel with patient.
[2017-09-26] MEDS: EMTRIVA PO SCH (10:39)
[2017-09-26] MEDS: BABY ASPIRIN PO SCH (10:39)
[2017-09-26] MEDS: COREG PO SCH ×2 (10:39→22:05)
[2017-09-26] MEDS: SUSTIVA PO SCH (10:40)
[2017-09-26] MEDS: VIREAD PO SCH (10:40)
[2017-09-26 13:29] LABS: Alanine Aminotransferase 16 units/L (7-56); Albumin 3.7 g/dL (3.9-5); Albumin/Globulin Ratio 1.3 %; Alkaline Phosphatase 57 units/L (35-129); Bilirubin,Total < 0.20 mg/dL (0.1-1.2); Total Protein 6.5 g/dL (6.3-8.2)
[2017-09-26 13:33] LABS: Bilirubin,Direct < 0.2 mg/dL (0-0.2)
[2017-09-27] MEDS: BABY ASPIRIN PO SCH (10:37)
[2017-09-27] MEDS: EMTRIVA PO SCH (10:37)
[2017-09-27] MEDS: COREG PO SCH ×2 (10:37→22:05)
[2017-09-27] MEDS: SUSTIVA PO SCH (10:39)
[2017-09-27] MEDS: VIREAD PO SCH (10:39)
--- NOTE | 2017-09-28 10:58 | Progress Note ---
Subjective - Reason for Consult Consult date: 09/28/17 Reason for consult: Psychiatry Follow-up - Chief Complaint Chief complaint: "When can I go to a hospital" Ms. Hidalgo is a 37-year-old female seen in the ER for psychiatric evaluation. Per the record: Patient has a past medical history of psychosis, HIV , recently admitted to the hospital for chest pain risk stratification, had a negative nuclear stress test. Today patient is uncooperative during the assessment. She is adamant about going being transferred to a mental health facility. When asked about insects crawling on her skin, she would not confirm or deny. She denies SI/HI's and AVH's. Mental Status Exam - Vital signs Last Vital Signs Temp 98.6 F 09/27/17 22:00 Pulse 70 09/27/17 22:00 Resp 18 09/27/17 22:00 BP 102/62 09/27/17 22:00 Pulse Ox 98 09/27/17 22:00 - Exam Narrative exam: MSE: Appearance: uncooperative Behavior: regular eye contact Speech: regular rate and tone Mood: "okay" Affect: congruent to mood Thought Process: circumstantial Thought Content: denies SI/HI's and AVH's, delusional, paranoia Motor Activity: ambulatory Cognition: A/Ox3 Insight: limited Judgment: limited Assessment and Plan Impression: Bipolar DO. PTSD unspecified - Patient does not want to discuss. Substance Use DO (cocaine). Hx of ADHD. Today patient is uncooperative during the assessment. Patient will not confirm or deny formication (insect crawling on her skin). DDx: Substance Induced Mood/Psychotic DO Recommendation/Plan: Continue 1013 and transfer to inpatient psychiatric facility for stabilization. D/C Seroquel. Start Zyprexa 5 mg PO BID for psychosis/mood and continue Klonopin 0.5mg PO daily for anxiety. Discussed possible metabolic side effects of Zyprexa with patient.
[2017-09-28] MEDS: BABY ASPIRIN PO SCH (11:30)
[2017-09-28] MEDS: COREG PO SCH (11:31)
[2017-09-28] MEDS: EMTRIVA PO SCH (11:33)
[2017-09-28] MEDS: VIREAD PO SCH (11:35)
[2017-09-28] MEDS: SUSTIVA PO SCH (11:35)
[2017-09-29] MEDS: COREG PO SCH ×3 (01:33→22:25)
[2017-09-29] MEDS ORDERED: TYLENOL PO ONE (01:48)
--- NOTE | 2017-09-29 10:58 | Progress Note ---
Subjective - Reason for Consult Consult date: 09/29/17 Reason for consult: Psychiatry Follow-up - Chief Complaint Chief complaint: "When can I go to a hospital" Ms. Hidalgo is a 37-year-old female seen in the ER for psychiatric evaluation. Per the record: Patient has a past medical history of psychosis, HIV , recently admitted to the hospital for chest pain risk stratification, had a negative nuclear stress test. Today patient is calm, but demanding about being transferred to a mental health facility. She stated that the insects has "ceased " crawling on her skin since she isn't at her current skilled nursing. She denies SI/ HI's and AVH's. Mental Status Exam - Vital signs Last Vital Signs Temp 98.7 F 09/29/17 01:31 Pulse 68 09/29/17 01:31 Resp 17 09/29/17 01:31 BP 118/63 09/29/17 01:31 Pulse Ox 98 09/29/17 01:31 - Exam Narrative exam: MSE: Appearance: uncooperative Behavior: regular eye contact Speech: regular rate and tone Mood: "okay" Affect: congruent to mood Thought Process: circumstantial Thought Content: denies SI/HI's and AVH's, delusional Motor Activity: ambulatory Cognition: A/Ox3 Insight: variable Judgment: variable Assessment and Plan Impression: Bipolar DO. PTSD unspecified - Patient does not want to discuss. Substance Use DO (cocaine). Hx of ADHD. Today patient is calm, but demanding about being transferred to a mental health facility. DDx: Substance Induced Mood/Psychotic DO Recommendation/Plan: Evaluate 1013 in 24 hours to determine proper dispo. Continue Zyprexa 5 mg PO BID for psychosis/mood and continue Klonopin 0.5mg PO daily for anxiety. Discussed possible metabolic side effects of Zyprexa with patient. Per Pump Tender patient has been accepted for placement at another skilled nursing once discharged.
[2017-09-29] MEDS: BABY ASPIRIN PO SCH (11:28)
[2017-09-29] MEDS: SUSTIVA PO SCH (11:29)
[2017-09-29] MEDS: EMTRIVA PO SCH (11:29)
[2017-09-29] MEDS: VIREAD PO SCH (11:30)
[2017-09-30] MEDS: COREG PO SCH ×2 (10:21→22:05)
[2017-09-30] MEDS: BABY ASPIRIN PO SCH (10:21)
[2017-09-30] MEDS: EMTRIVA PO SCH (10:22)
[2017-09-30] MEDS: VIREAD PO SCH (10:22)
[2017-09-30] MEDS: SUSTIVA PO SCH (10:23)
[2017-10-01] MEDS: VIREAD PO SCH (11:52)
[2017-10-01] MEDS: EMTRIVA PO SCH (11:53)
[2017-10-01] MEDS: COREG PO SCH ×2 (11:53→22:30)
[2017-10-01] MEDS: BABY ASPIRIN PO SCH (11:53)
[2017-10-01] MEDS: SUSTIVA PO SCH (11:53)
--- NOTE | 2017-10-01 20:06 | Progress Note ---
Subjective - Reason for Consult Reason for consult: psych eval - Chief Complaint Chief complaint: Ms. Hidalgo is a 37-year-old female seen in the ER for psychiatric evaluation. Patient continues to note that she would like to go to the hospital for continued psych care. Although she denies any SI/HI/AH/VH she is displaying some paranoia. She notes that she will not go to the [facility] that social science teacher has considered. She states that she has no depression right now. She states we should give her a cab rider to [facility] for psych care. Mental Status Exam - Vital signs Last Vital Signs Temp 98.6 F 10/01/17 08:41 Pulse 74 10/01/17 08:41 Resp 18 10/01/17 09:09 BP 100/58 10/01/17 08:41 Pulse Ox 96 10/01/17 09:09 - Exam Orientation: time, place, person Affect: normal Mood: other (fine) Thought content: delusions Thought Process: Circumstantial, Tangential Perceptions: none Speech: normal rate and pattern Concentration: distractible Motor activity: normal Level of consciousness: alert Memory: Intact Interaction: uncooperative Mini mental status exam(if necessary): 24-30 Assessment and Plan Assessment and Plan Patient continues to display poor choices and the need for further eval at a facility like [facility]. Patient seems paranoid still. 1. Bipolar I d/o NOS- continue the psych meds as indicated but increase zyprexa to 5mg qam and 10mg qhs for her paranoia and irritability 2. dispo- patient refuses dispo option that was being considered by social science teacher- instead noting that she'll take a cab to [place].
[2017-10-02] MEDS: BABY ASPIRIN PO SCH (12:00)
[2017-10-02] MEDS: COREG PO SCH ×2 (12:00→23:20)
[2017-10-02] MEDS: SUSTIVA PO SCH (12:01)
[2017-10-02] MEDS: EMTRIVA PO SCH (12:01)
[2017-10-02] MEDS: VIREAD PO SCH (12:01)
--- NOTE | 2017-10-02 12:02 | Progress Note ---
Subjective - Reason for Consult Consult date: 10/02/17 Reason for consult: Psychiatry Follow-up - Chief Complaint Chief complaint: "When can I leave" Ms. Hidalgo is a 37-year-old female seen in the ER for psychiatric evaluation. Patient continues to note that she would like to go to the hospital for continued psych care. Today patient is still presenting with some paranoia. She denies not wanting to go to a nursing home yesterday. She denies SI/HI's and AVH's. She is fixated about being transferred to [facility] for psy services. Mental Status Exam - Vital signs Last Vital Signs Temp 98.6 F 10/01/17 23:32 Pulse 62 10/01/17 23:32 Resp 18 10/01/17 23:32 BP 93/49 10/01/17 23:32 Pulse Ox 98 10/01/17 23:32 - Exam Narrative exam: MSE: Appearance: uncooperative Behavior: regular eye contact Speech: regular rate and tone Mood: "well" Affect: congruent to mood Thought Process: circumstantial Thought Content: denies SI/HI's and AVH's, paranoid Motor Activity: ambulatory Cognition: A/Ox3 Insight: variable Judgment: variable Assessment and Plan Impression: Bipolar DO. PTSD unspecified - Patient does not want to discuss. Substance Use DO (cocaine). Hx of ADHD. Today patient is uncooperative during the assessment. DDx: Substance Induced Mood/Psychotic DO Recommendation/Plan: Continue 1013 with on going efforts to place in a mental health facility. Continue Zyprexa 5 mg PO BID for psychosis/mood and continue Klonopin 0.5mg PO daily for anxiety. Discussed possible metabolic side effects of Zyprexa with patient.
--- NOTE | 2017-10-03 09:30 | Progress Note ---
Subjective - Reason for Consult Consult date: 10/03/17 Reason for consult: Psychiatry Follow-up - Chief Complaint Chief complaint: "I feel better" Ms. Hidalgo is a 37-year-old female seen in the ER for psychiatric evaluation. Today patient is calm and cooperative during the assessment. She stated that she would go to a retirement if discharged. She denies SI/HI's and AVH's. She stated that she would go to [facility] for outpatient psy services. The patient was more cooperative today during the interview. Mental Status Exam - Vital signs Last Vital Signs Temp 98.2 F 10/02/17 09:32 Pulse 77 10/03/17 06:52 Resp 18 10/03/17 06:52 BP 114/72 10/03/17 06:52 Pulse Ox 96 10/03/17 06:52 - Exam Narrative exam: MSE: Appearance: calm, cooperative Behavior: regular eye contact Speech: regular rate and tone Mood: "well" Affect: congruent to mood Thought Process: circumstantial Thought Content: denies SI/HI's and AVH's Motor Activity: ambulatory Cognition: A/Ox3 Insight: fair Judgment: fair Assessment and Plan Impression: Bipolar DO. PTSD unspecified - Patient does not want to discuss. Substance Use DO (cocaine). Hx of ADHD. Today patient is calm and cooperative during the assessment. Patient is no threat to self. DDx: Substance Induced Mood/Psychotic DO Recommendation/Plan: Rescind 1013. Continue Zyprexa 5 mg PO BID for psychosis/ mood and continue Klonopin 0.5mg PO daily for anxiety. Discussed possible metabolic side effects of Zyprexa with patient. Social Worker Masters involvement, patient will need placement.
[2017-10-03] MEDS: VIREAD PO SCH (12:41)
[2017-10-03] MEDS: EMTRIVA PO SCH (12:41)
[2017-10-03] MEDS: COREG PO SCH (12:41)
[2017-10-03] MEDS: SUSTIVA PO SCH (12:41)
[2017-10-03] MEDS: BABY ASPIRIN PO SCH (12:41)
[2017-10-03 18:12] VITALS: BP 123/62
--- NOTE | 2017-10-07 15:04 | Procedure Note ---
CARDIAC CT ANGIOGRAM INDICATION FOR PROCEDURE: Chest pain. Informed consent was obtained. DESCRIPTION OF PROCEDURE: The patient was brought to the cardiac CT angiography laboratory at [facility] in stable condition after a 4-hour fast. Cardiac CT angiography was performed using the standard protocol on the [address] scanner. Heart rate was regulated by beta blockade. Sublingual nitroglycerin was administered prior to imaging. A coronary artery calcium score via the Agatston method was performed. Left ventricular systolic function was evaluated by the volumetric segmentation threshold based approach. After data acquisition and reconstruction at the computer console, the images were processed and reoriented at the work station. Volume rendered images, multiplanar reformatted images, and maximum intensity images were generated and reviewed. Multiple phases of the cardiac cycle were assessed as needed for image interpretation. The technical quality of the study was suboptimal and limited by motion artifact. The superior and inferior vena cava in the field of view appeared normal. The ascending and descending aorta in the field of view appeared normal. The pulmonary artery and the field of view appears normal. The pulmonary veins enter the left atrium appropriately. The left atrium and the left atrial appendage appear normal. The right atrium appears normal. The right and left ventricles appear normal. The interventricular septum and the interatrial septum appear normal. The mitral and aortic valves appear normal. There are no intracardiac masses. There is no pericardial effusion. The coronary artery calcium score is zero. Left ventriculography demonstrates normal end-systolic and end-diastolic chamber size and left ventricular systolic wall thickening. The left ventricular ejection fraction is 54%. Coronary angiography demonstrates a right dominant system. The right coronary artery originates properly from the right coronary cusp. The right coronary artery appears grossly normal, but assessment is limited by motion artifact. The left coronary artery originates properly from the left coronary cusp. The left main coronary artery appears normal. The left anterior descending coronary artery and the diagonal branches appear normal. There is no obvious evidence of angiographic disease, but the study is limited by motion artifact. The circumflex coronary artery appears grossly normal, but again assessment is somewhat limited by motion artifact. Cardiac CT angiography demonstrates grossly normal left ventricular systolic function. The coronary artery calcium score is normal. Although there is no obvious angiographic evidence of obstructive coronary disease, the assessment of the left and right coronary arteries is limited by motion artifact. The study is therefore deemed nondiagnostic. The procedure was well tolerated. There were no complications. JOB# [id number] PRUDENCIO/SATNAM
== END 2017-10-03 22:02 ==
LOC: ED 18:01 → EEVIPCON 18:01 → ED 10-03 22:02
DX: R45.851 Suicidal ideations (principal); F29 Unspecified psychosis not due to a substance or known physiological condition
CPT/HCPCS: 36415; 80048; 80074; 80307; 81001; 81025; 82550; 85025; 99285; G0480; 80320

== ENCOUNTER 2017-11-18 04:45 | Emergency (ER) | payer MEDICAID ==
[2017-11-18 05:54] LABS: Benzodiazepines Screen,Urine PRESUMPTIVE NEGATIVE; Bilirubin,Urine NEG (Negative); Blood,Urine MOD (Negative); Calcium Oxalate Crystals,Urine 2+; Cannabinoid Screen,Urine PRESUMPTIVE NEGATIVE; Color,Urine Yellow (Yellow); Methadone Screen,Urine PRESUMPTIVE NEGATIVE; Mucus,Urine 1+ /HPF; Nitrite,Urine NEG (Negative); Opiate Screen,Urine PRESUMPTIVE NEGATIVE; Protein,Urine <15 mg/dL mg/dL (Negative)
[2017-11-18 06:01] LABS: Basophils % (Auto) 0.5 % (0.0-1.8); Eosinophils # (Auto) 0.1 K/mm3 (0.0-0.4); Eosinophils % (Auto) 2.4 % (0.0-4.3); Hematocrit 35.1 % (30.3-42.9); Hemoglobin 11.5 gm/dl (10.1-14.3); Lymphocytes # (Auto) 1.4 K/mm3 (1.2-5.4); Mean Corpuscular HGB Conc 33 % (30-34); Mean Corpuscular Volume 78 fl (79-97); Monocytes # (Auto) 0.6 K/mm3 (0.0-0.8); Monocytes % (Auto) 10.9 % (0.0-7.3); Platelet Count 267 K/mm3 (140-440); Red Blood Count 4.52 M/mm3 (3.65-5.03); Red Cell Distribution Width 16.1 % (13.2-15.2)
[2017-11-18 06:05] LABS: BUN/Creatinine Ratio 8; Blood Urea Nitrogen 4 mg/dL (7-17); Calcium 9.1 mg/dL (8.4-10.2); Hemolysis Index 9
[2017-11-18 06:08] LABS: Mean Corpuscular Hemoglobin 26 pg (28-32)
[2017-11-18 06:12] LABS: Amphetamine Screen,Urine PRESUMPTIVE POSITIVE; Cocaine Screen,Urine PRESUMPTIVE POSITIVE
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
[2017-11-18 21:09] VITALS: BP 103/46
[2017-11-18] MEDS ORDERED: RisperDAL PO SCH (22:00)
== END 2017-11-18 21:28 ==
LOC: ED 04:45
DX: F31.9 Bipolar disorder, unspecified (principal); F41.9 Anxiety disorder, unspecified
CPT/HCPCS: 36415; 80048; 80307; 81001; 84703; 85025; 99285; G0480; 80320

== ENCOUNTER 2017-11-28 22:59 | Emergency (ER) | payer MEDICAID ==
--- NOTE | 2017-11-28 23:49 | Emergency Department Report ---
HPI - General Chief Complaint: Psych Time Seen by Provider: 11/28/17 23:24 - HPI HPI: 37-year-old female presents to the emergency department by EMS from home for a mental health evaluation. She has a history of bipolar disorder , anxiety, ADHD and PTSD for which she takes Zoloft, Adderall, clonazepam. She says that she is hearing voices including the voice of her father. She thinks that she has heard some gunshots from outside of her house that she believes were not there. She says that she is having suicidal ideations without any specific plan. The patient was just recently here to the [facility] for similar symptoms and was sent to [facility] for inpatient psychiatric treatment. She has a past medical history of HIV. ED Past Medical Hx - Past Medical History Previous Medical History?: Yes Hx Hypertension: No Hx Heart Attack/AMI: No Hx Diabetes: No Hx Renal Disease: No Hx Psychiatric Treatment: Yes (PTSD, BIPOLAR, ADHD,anxiety) Hx Asthma: No Hx COPD: No Hx HIV: Yes - Surgical History Past Surgical History?: Yes Hx Coronary Stent: No Hx Pacemaker: No Additional Surgical History: D&C. breast implants. wisdom teeth removed - Social History Smoking Status: Never Smoker Substance Use Type: None - Medications Home Medications: Home Medications Medication Instructions Recorded Confirmed Last Taken Type QUEtiapine [SEROquel] 200 mg PO QHS MDD 400 09/05/16 11/28/17 10/13/16 History Efavirenz/Emtricitab/Tenofovir 600 mg PO QDAY 10/14/16 11/28/17 2 Weeks Ago History [Atripla Tablet] ~08/26/17 Dextroamphetamine/Amphetamine 20 mg PO BID 09/09/17 11/28/17 Unknown History [Adderall 20 mg Tablet] clonazePAM [Klonopin] 0.5 mg PO DAILY 09/09/17 11/28/17 Unknown History Aspirin [Aspirin BABY CHEW TAB] 81 mg PO QDAY tab.chew 09/12/17 11/28/17 Unknown Rx Carvedilol [Coreg] 3.125 mg PO BID 30 Days tablet 09/12/17 11/28/17 Unknown Rx Triamcinolone 0.1% [Kenalog 0.1% 1 applic TP TID tube 09/12/17 11/28/17 Unknown Rx CREAM] oxyCODONE /ACETAMINOPHEN [Percocet 1 tab PO Q6HR PRN #13 tablet 09/12/17 Unknown Rx 5/325] Sertraline [Zoloft] 150 mg PO QDAY 11/28/17 11/28/17 Unknown History ED Review of Systems ROS: Stated complaint: HEARING VOICES Other details as noted in HPI Comment: All other systems reviewed and negative Constitutional: denies: chills, fever Eyes: denies: eye pain, eye discharge, vision change ENT: denies: ear pain, throat pain Respiratory: denies: cough, shortness of breath, wheezing Cardiovascular: denies: chest pain, palpitations Gastrointestinal: denies: abdominal pain, nausea, diarrhea Genitourinary: denies: urgency, dysuria, discharge Musculoskeletal: denies: back pain, joint swelling, arthralgia Skin: denies: rash, lesions Neurological: denies: headache, weakness, paresthesias Psychiatric: depression, auditory hallucinations, suicidal thoughts Physical Exam - Physical Exam Vital Signs: Vital Signs 11/28/17 23:15 Temperature 98.8 F Pulse Rate 92 H Respiratory 18 Rate Blood Pressure 140/90 [Left] O2 Sat by Pulse 98 Oximetry Physical Exam: GENERAL: The patient is well-developed well-nourished. HENT: Normocephalic. Atraumatic. Patient has moist mucous membranes. EYES: Extraocular motions are intact. Pupils equal reactive to light bilaterally. NECK: Supple. Trachea is midline. CHEST/LUNGS: Clear to auscultation. There is no respiratory distress noted. HEART/CARDIOVASCULAR: Regular. There is no tachycardia. There is no murmur. ABDOMEN: Abdomen is soft, nontender. Patient has normal bowel sounds. There is no abdominal distention. SKIN: Skin is warm and dry. NEURO: The patient is awake, alert, and oriented. The patient is cooperative. The patient has no focal neurologic deficits. The patient has normal speech. MUSCULOSKELETAL: There is no tenderness or deformity. There is no limitation range of motion. There is no evidence of acute injury. ED Course Vital Signs 11/28/17 23:15 Temperature 98.8 F Pulse Rate 92 H Respiratory 18 Rate Blood Pressure 140/90 [Left] O2 Sat by Pulse 98 Oximetry ED Medical Decision Making - Lab Data Result diagrams: 11/28/17 23:36 11/28/17 23:36 - Medical Decision Making Patient presents with complaints of hallucinations and suicidal ideations. Labs are mostly unremarkable except for urine drug screen is positive for amphetamines and cocaine. The patient does not appear acutely intoxicated. Vital signs stable throughout her ED course. She has been made a 1013 secondary to the suicidal ideations. She appears medically cleared for psychiatric placement. - Differential Diagnosis bipolar disorder, schizophrenia, schizoaffective, depression, substance abu Critical Care Time: No Critical care attestation.: If time is entered above; I have spent that time in minutes in the direct care of this critically ill patient, excluding procedure time. ED Disposition Clinical Impression: Suicidal thoughts, Medical clearance for psychiatric admission, Polysubstance abuse Disposition: [id number]/TX-[id number] PSY HOSP/PSY UNIT Is pt being admited?: No Condition: Stable Referrals: IVA ALBARADO MD [Primary Care Provider] - 3-5 Days Time of Disposition: 03:06
[2017-11-28 23:51] LABS: Basophils % (Auto) 0.3 % (0.0-1.8); Eosinophils % (Auto) 0.4 % (0.0-4.3); Hematocrit 36.1 % (30.3-42.9); Hemoglobin 11.6 gm/dl (10.1-14.3); Mean Corpuscular HGB Conc 32 % (30-34); Mean Corpuscular Volume 78 fl (79-97); Monocytes # (Auto) 0.4 K/mm3 (0.0-0.8); Monocytes % (Auto) 6.1 % (0.0-7.3); Platelet Count 378 K/mm3 (140-440); Red Blood Count 4.64 M/mm3 (3.65-5.03); Red Cell Distribution Width 16.4 % (13.2-15.2)
[2017-11-28 23:59] LABS: Mean Corpuscular Hemoglobin 25 pg (28-32)
[2017-11-29 00:11] LABS: BUN/Creatinine Ratio 16; Blood Urea Nitrogen 11 mg/dL (7-17); Hemolysis Index 7
[2017-11-29 00:40] LABS: Bilirubin,Urine NEG (Negative); Blood,Urine NEG (Negative); Color,Urine Yellow (Yellow); Mucus,Urine 1+ /HPF; Urobilinogen,Urine < 2.0 mg/dL (<2.0)
[2017-11-29 00:51] LABS: Benzodiazepines Screen,Urine PRESUMPTIVE NEGATIVE; Cannabinoid Screen,Urine PRESUMPTIVE NEGATIVE; Methadone Screen,Urine PRESUMPTIVE NEGATIVE; Opiate Screen,Urine PRESUMPTIVE NEGATIVE
[2017-11-29 01:06] LABS: Amphetamine Screen,Urine PRESUMPTIVE POSITIVE; Cocaine Screen,Urine PRESUMPTIVE POSITIVE
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
[2017-11-29] MEDS ORDERED: ATRIPLA (NF) PO SCH (14:00)
[2017-11-29] MEDS: BABY ASPIRIN PO SCH (16:18)
[2017-11-29] MEDS: COREG PO SCH ×2 (16:18→21:52)
[2017-11-29] MEDS: EMTRIVA PO SCH (16:19)
[2017-11-29] MEDS: VIREAD PO SCH (16:19)
[2017-11-29] MEDS: SUSTIVA PO SCH (16:19)
[2017-11-29] MEDS: ZOLOFT PO SCH (16:19)
[2017-11-30] MEDS: EMTRIVA PO SCH (11:26)
[2017-11-30] MEDS: COREG PO SCH ×3 (11:26→21:44)
[2017-11-30] MEDS: ZOLOFT PO SCH (11:26)
[2017-11-30] MEDS: VIREAD PO SCH (11:26)
[2017-11-30] MEDS: SUSTIVA PO SCH (11:26)
[2017-11-30] MEDS: BABY ASPIRIN PO SCH (11:26)
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
[2017-12-01] MEDS: BABY ASPIRIN PO SCH (10:35)
[2017-12-01] MEDS: VIREAD PO SCH (10:35)
[2017-12-01] MEDS: EMTRIVA PO SCH (10:35)
[2017-12-01] MEDS: SUSTIVA PO SCH (10:35)
[2017-12-01] MEDS: ZOLOFT PO SCH (10:35)
[2017-12-01] MEDS: COREG PO SCH ×2 (10:35→22:00)
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
[2017-12-01] MEDS ORDERED: ATIVAN IM ONE (18:04)
[2017-12-01] MEDS ORDERED: BENADRYL IM ONE (18:14)
[2017-12-01] MEDS ORDERED: BENADRYL ONE (23:40)
[2017-12-02] MEDS: BABY ASPIRIN PO SCH (10:38)
[2017-12-02] MEDS: COREG PO SCH ×2 (10:38→22:28)
[2017-12-02] MEDS: SUSTIVA PO SCH (10:38)
[2017-12-02] MEDS: EMTRIVA PO SCH (10:38)
[2017-12-02] MEDS: VIREAD PO SCH (10:39)
[2017-12-02] MEDS: ZOLOFT PO SCH (10:39)
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
[2017-12-03] MEDS: BABY ASPIRIN PO SCH (10:15)
[2017-12-03] MEDS: VIREAD PO SCH (10:15)
[2017-12-03] MEDS: EMTRIVA PO SCH (10:15)
[2017-12-03] MEDS: ZOLOFT PO SCH (10:15)
[2017-12-03] MEDS: COREG PO SCH ×2 (10:15→22:50)
[2017-12-03] MEDS: SUSTIVA PO SCH (10:15)
--- NOTE | 2017-12-03 15:17 | Progress Note ---
Subjective - Reason for Consult Consult date: 12/03/17 Reason for consult: follow up - Chief Complaint Chief complaint: "bad" 37-year-old female presents to the emergency department by EMS from home for hearing voices. [facility] 2 [facility] ago. She is guarded. She reports depression , auditory hallucinations, and paranoia. She denies any side effects of her medications. She reports receiving "a shot" recently and feeling tired. She will not provide further information. She is taking medications per the MAR. Mental Status Exam - Vital signs Last Vital Signs Temp 98.2 F 12/03/17 08:26 Pulse 69 12/03/17 08:26 Resp 16 12/03/17 08:26 BP 107/54 12/03/17 08:26 Pulse Ox 100 12/03/17 08:26 - Exam Narrative exam: MSE: Appearance: calm Behavior: regular eye contact Speech: regular rate and tone Mood: "depressed" Affect: flat Thought Process: circumstantial Thought Content: reports suicidal ideation, paranoia, delusional Motor Activity: ambulatory Cognition: A/O x 3 Insight: variable Judgment: variable Assessment and Plan Impression: Bipolar DO. Hx of ADHD and PTSD. Today the patient is calm during the assessment. The patient is experiencing perceptional disturbances. DDx: R/O Schizoaffective DO Recommendation/Plan: Continue 1013 with placement to inpatient psy services. Continue Zoloft 150 mg PO daily for PTSD, Klonopin 0.5 mg PO HS for anxiety/ sleep consolidation, and continue Seroquel 300 mg PO HS for psychosis/mood.
--- NOTE | 2017-12-04 10:44 | Progress Note ---
Subjective - Reason for Consult Consult date: 12/04/17 Reason for consult: Psychiatry Follow-up - Chief Complaint Chief complaint: "When will I be leaving" 37-year-old female presents to the emergency department by EMS from home for hearing voices. She was recently dc'd from [facility] and referred to [facility] 2 weeks ago. Today the patient is still guarded with a circumstantial thought process. She would answer some questions asked of her. She wanted to know when will she be transferred to a mental facility. The process was explained to her. She denies SI/HI's and VH'. She would not confirm or deny AH's. She denies any side effects of her medications. Mental Status Exam - Vital signs Last Vital Signs Temp 98 F 12/04/17 03:40 Pulse 78 12/04/17 03:40 Resp 18 12/04/17 03:40 BP 111/62 12/04/17 03:40 Pulse Ox 100 12/04/17 03:40 - Exam Narrative exam: MSE: Appearance: calm Behavior: regular eye contact Speech: regular rate and tone Mood: "okay" guarded Affect: flat Thought Process: circumstantial Thought Content: denies SI/HI's and VH's Motor Activity: ambulatory Cognition: A/O x 3 Insight: variable Judgment: variable Assessment and Plan Impression: Bipolar DO. Hx of ADHD and PTSD. Today the patient is still guarded with a circumstantial thought process during the assessment. DDx: R/O Schizoaffective DO Recommendation/Plan: Continue 1013 with placement to inpatient psy services. Continue Zoloft 150 mg PO daily for PTSD, Klonopin 0.5 mg PO HS for anxiety/ sleep consolidation, and modify Seroquel to 300 mg PO HS for psychosis/mood. Discussed possible suicidality.medication induced theresa with patient reference Zoloft. Discussed possible metabolic side effects of Seroquel with patient.
[2017-12-04] MEDS: BABY ASPIRIN PO SCH (10:54)
[2017-12-04] MEDS: EMTRIVA PO SCH (11:10)
[2017-12-04] MEDS: VIREAD PO SCH (11:11)
[2017-12-04] MEDS: COREG PO SCH ×2 (11:11→22:08)
[2017-12-04] MEDS: SUSTIVA PO SCH (11:11)
[2017-12-04] MEDS: ZOLOFT PO SCH (11:11)
[2017-12-05] MEDS: COREG PO SCH ×2 (10:24→22:07)
[2017-12-05] MEDS: BABY ASPIRIN PO SCH (10:24)
[2017-12-05] MEDS: SUSTIVA PO SCH (10:25)
[2017-12-05] MEDS: ZOLOFT PO SCH (10:25)
[2017-12-05] MEDS: VIREAD PO SCH (10:25)
[2017-12-05] MEDS: EMTRIVA PO SCH (10:25)
--- NOTE | 2017-12-05 15:07 | Progress Note ---
Subjective - Reason for Consult Consult date: 12/05/17 Reason for consult: Psychiatry Follow-up - Chief Complaint Chief complaint: "What do you want" 37-year-old female presents to the emergency department by EMS from home for hearing voices. She was recently dc'd from [facility] and referred to [facility] 2 weeks ago. Today the patient is uncooperative during the assessment. She is adamant about going to a mental health facility. She stated that she may kill someone if she is released. She would not elaborate more when asked about who she will kill. She refused to answer anymore questions and put her head under the sheets. No indications of side effects of her medication. Mental Status Exam - Vital signs Last Vital Signs Temp 97.9 F 12/05/17 09:13 Pulse 79 12/05/17 10:24 Resp 13 12/05/17 09:13 BP 111/72 12/05/17 10:24 Pulse Ox 100 12/05/17 09:13 - Exam Narrative exam: MSE: Appearance: uncooperative Behavior: regular eye contact Speech: regular rate and tone Mood: guarded Affect: flat Thought Process: circumstantial Thought Content: denies and AVH's Motor Activity: ambulatory Cognition: A/O x 3 Insight: variable Judgment: variable Assessment and Plan Impression: Bipolar DO. Hx of ADHD and PTSD. Today the patient is still guarded with a circumstantial thought process during the assessment. Possibly some secondary gain by patient. DDx: R/O Schizoaffective DO Recommendation/Plan: Continue 1013 with placement to inpatient psy services. Continue Zoloft 150 mg PO daily for PTSD, Klonopin 0.5 mg PO HS for anxiety/ sleep consolidation, and modify Seroquel to 300 mg PO HS for psychosis/mood. Discussed possible suicidality.medication induced theresa with patient reference Zoloft. Discussed possible metabolic side effects of Seroquel with patient.
[2017-12-06] MEDS: COREG PO SCH ×2 (12:43→22:14)
[2017-12-06] MEDS: BABY ASPIRIN PO SCH (12:43)
[2017-12-06] MEDS: VIREAD PO SCH (12:44)
[2017-12-06] MEDS: EMTRIVA PO SCH (12:44)
[2017-12-06] MEDS: ZOLOFT PO SCH (12:44)
[2017-12-06] MEDS: SUSTIVA PO SCH (12:44)
--- NOTE | 2017-12-07 10:14 | Progress Note ---
Subjective - Reason for Consult Consult date: 12/07/17 Reason for consult: Psychiatry Follow-up - Chief Complaint Chief complaint: "Hello" 37-year-old female presents to the emergency department by EMS from home for hearing voices. She was recently dc'd from [facility] and referred to [facility] 2 weeks ago. Today the patient is calm during the assessment. She stated that she is suicidal without a plan and homicidal. She was asked about her HI's and refused to elaborate. She denies AVH's any side effects of her medications. Mental Status Exam - Vital signs Last Vital Signs Temp 98 F 12/07/17 03:56 Pulse 77 12/07/17 03:56 Resp 17 12/06/17 04:17 BP 127/64 12/06/17 22:14 Pulse Ox 99 12/06/17 04:17 - Exam Narrative exam: MSE: Appearance: calm Behavior: regular eye contact Speech: regular rate and tone Mood: guarded Affect: flat Thought Process: circumstantial Thought Content: denies and AVH's Motor Activity: ambulatory Cognition: A/O x 3 Insight: variable Judgment: variable Assessment and Plan Impression: Bipolar DO. Hx of ADHD and PTSD. Today the patient is calm during the assessment. Possibly some secondary gain by patient. DDx: R/O Schizoaffective DO Recommendation/Plan: Continue 1013 with placement to inpatient psy services. Continue Zoloft 150 mg PO daily for PTSD, Klonopin 0.5 mg PO HS for anxiety/ sleep consolidation, and modify Seroquel to 300 mg PO HS for psychosis/mood. Discussed possible suicidality/medication induced theresa with patient reference Zoloft. Discussed possible metabolic side effects of Seroquel with patient.
[2017-12-07] MEDS: SUSTIVA PO SCH (11:00)
[2017-12-07] MEDS: BABY ASPIRIN PO SCH (11:00)
[2017-12-07] MEDS: ZOLOFT PO SCH (11:00)
[2017-12-07] MEDS: COREG PO SCH ×2 (11:00→22:29)
[2017-12-07] MEDS ORDERED: MILK OF MAGNESIA PO ONE (11:50)
[2017-12-07] MEDS: VIREAD PO SCH (12:15)
[2017-12-07] MEDS: EMTRIVA PO SCH (12:15)
[2017-12-08] MEDS: COREG PO SCH ×2 (10:34→22:10)
[2017-12-08] MEDS: BABY ASPIRIN PO SCH (10:34)
[2017-12-08] MEDS: SUSTIVA PO SCH (10:36)
[2017-12-08] MEDS: ZOLOFT PO SCH (10:36)
[2017-12-08] MEDS: EMTRIVA PO SCH (10:36)
[2017-12-08] MEDS: VIREAD PO SCH (10:36)
--- NOTE | 2017-12-08 11:53 | Progress Note ---
Subjective - Reason for Consult Consult date: 12/08/17 Reason for consult: Psychiatry Follow-up - Chief Complaint Chief complaint: "Hello" 37-year-old female presents to the emergency department by EMS from home for hearing voices. She was recently dc'd from [facility] and referred to [facility] 2 weeks ago. Today the patient is calm during the assessment. She is adamant about wanting to be transferred to a mental health facility. She continue to endorse SI/HI's, but denies a plan. She denies AVH's. She denies any side effects of her medications. Mental Status Exam - Vital signs Last Vital Signs Temp 98.8 F 12/08/17 07:55 Pulse 75 12/08/17 10:34 Resp 16 12/08/17 07:58 BP 112/80 12/08/17 10:34 Pulse Ox 98 12/08/17 07:58 - Exam Narrative exam: MSE: Appearance: calm Behavior: regular eye contact Speech: regular rate and tone Mood: "okay" Affect: congruent to mood Thought Process: circumstantial Thought Content: denies AVH's Motor Activity: ambulatory Cognition: A/O x 3 Insight: variable Judgment: variable Assessment and Plan Impression: Bipolar DO. Hx of ADHD and PTSD. Today the patient is calm during the assessment. Possibly some secondary gain by patient. DDx: R/O Schizoaffective DO Recommendation/Plan: Continue 1013 with placement to inpatient psy services. Continue Zoloft 150 mg PO daily for PTSD, Klonopin 0.5 mg PO HS for anxiety/ sleep consolidation, and modify Seroquel to 300 mg PO HS for psychosis/mood. Discussed possible suicidality/medication induced theresa with patient reference Zoloft. Discussed possible metabolic side effects of Seroquel with patient.
[2017-12-09] MEDS: BABY ASPIRIN PO SCH (10:29)
[2017-12-09] MEDS: COREG PO SCH ×2 (10:30→22:01)
[2017-12-09] MEDS: EMTRIVA PO SCH (10:30)
[2017-12-09] MEDS: SUSTIVA PO SCH (10:30)
[2017-12-09] MEDS: ZOLOFT PO SCH (10:31)
[2017-12-09] MEDS: VIREAD PO SCH (10:31)
[2017-12-10 08:31] VITALS: BP 115/72
--- NOTE | 2017-12-10 09:26 | Progress Note ---
Subjective - Reason for Consult Consult date: 12/10/17 Reason for consult: Psychiatry Follow-up - Chief Complaint Chief complaint: "Can I leave" 37-year-old female presents to the emergency department by EMS from home for hearing voices. She was recently dc'd from [facility] and referred to [facility] 2 weeks ago. Today the patient is calm and cooperative during the assessment. Per collateral information from her aunt Veronika Hidalgo at [phone], the patient was experiencing bizarre behavior prior to her admission to the hospital. She stated once the patient is discharged she can return home to her residence. The patient denies SI/HI's and AVH's. She denies any side effects of her medications. Mental Status Exam - Vital signs Last Vital Signs Temp 98.5 F 12/10/17 08:29 Pulse 65 12/10/17 08:29 Resp 20 12/10/17 08:31 BP 115/72 12/10/17 08:29 Pulse Ox 96 12/10/17 08:31 - Exam Narrative exam: MSE: Appearance: calm, cooperative Behavior: regular eye contact Speech: regular rate and tone Mood: "okay" Affect: congruent to mood Thought Process: linear Thought Content: denies SI/HI's and AVH's Motor Activity: ambulatory Cognition: A/O x 3 Insight: appropriate Judgment: appropriate Assessment and Plan Impression: Bipolar DO. Hx of ADHD and PTSD. Today the patient is calm and cooperative during the assessment. The patient is no threat to self or others. DDx: R/O Schizoaffective DO Recommendation/Plan: Rescind 1013. Continue Zoloft 150 mg PO daily for PTSD, Klonopin 0.5 mg PO HS for anxiety/sleep consolidation, and modify Seroquel to 300 mg PO HS for psychosis/mood. Discussed possible suicidality/medication induced theresa with patient reference Zoloft. Discussed possible metabolic side effects of Seroquel with patient. The Patient can follow up [facility] for outpatient psy services.
[2017-12-10] MEDS: BABY ASPIRIN PO SCH (10:58)
[2017-12-10] MEDS: COREG PO SCH (10:58)
[2017-12-10] MEDS: VIREAD PO SCH (10:59)
[2017-12-10] MEDS: SUSTIVA PO SCH (10:59)
[2017-12-10] MEDS: EMTRIVA PO SCH (10:59)
[2017-12-10] MEDS: ZOLOFT PO SCH (11:00)
== END 2017-12-10 21:00 ==
LOC: ED 22:59 → EEVIPCON 22:59 → ED 12-10 21:00
DX: F19.10 Other psychoactive substance abuse, uncomplicated (principal); R44.0 Auditory hallucinations; R45.851 Suicidal ideations; F31.9 Bipolar disorder, unspecified; F41.9 Anxiety disorder, unspecified; Z21 Asymptomatic human immunodeficiency virus [HIV] infection status; Z88.8 Allergy status to other drugs, medicaments and biological substances
CPT/HCPCS: 36415; 80048; 80307; 81001; 85025; 96372; 99284; G0480; J1200; J2060; 80320

== ENCOUNTER 2017-12-23 17:10 | Emergency (ER) | payer MEDICAID ==
[2017-12-23 17:16] VITALS: BP 127/78
[2017-12-23] MEDS ORDERED: TYLENOL PO ONE (17:54)
[2017-12-23] MEDS ORDERED: TORADOL IM ONE (17:54)
--- NOTE | 2017-12-23 17:55 | Emergency Department Report ---
ED General Adult HPI - General Chief complaint: Dental/Oral Stated complaint: ALLERGIC REACTION Time Seen by Provider: 12/23/17 17:43 Source: patient Mode of arrival: Ambulatory Limitations: No Limitations - History of Present Illness Initial comments: This is a 37-year-old female, the patient reports that she is not , the patient presents to the ER with multiple complaints. The patient's first complaint is dental pain over tooth #15, reports having had a crown placed there 2 years ago, and the cramping became dislodged 2 days ago. She has sharp dental pain which involves the left ear. There is no headache, neck pain, chest pain, abdominal pain, shortness of breath, tinnitus, vertigo. The pain does not have exacerbating or relieving factors that she can recall. It is constant. Her next complaint is a painful rash on her bilateral inner thighs, it doesn't radiate anywhere, no recent creams, colognes, no recent bites that she is aware of. -: Gradual Location: mouth, right, lower extremity Radiation: non-radiation Quality: stabbing Consistency: constant Improves with: none Worsens with: none Associated Symptoms: rash. denies: confusion, chest pain, cough, diaphoresis, fever/chills, headaches, loss of appetite, malaise, nausea/vomiting, seizure, shortness of breath, syncope, weakness - Related Data Home Medications Medication Instructions Recorded Confirmed Last Taken QUEtiapine [SEROquel] 200 mg PO QHS MDD 400 09/05/16 11/28/17 10/13/16 Efavirenz/Emtricitab/Tenofovir 600 mg PO QDAY 10/14/16 11/28/17 2 Weeks Ago [Atripla Tablet] ~08/26/17 Dextroamphetamine/Amphetamine 20 mg PO BID 09/09/17 11/28/17 Unknown [Adderall 20 mg Tablet] clonazePAM [Klonopin] 0.5 mg PO DAILY 09/09/17 11/28/17 Unknown Sertraline [Zoloft] 150 mg PO QDAY 11/28/17 11/28/17 Unknown Previous Rx's Medication Instructions Recorded Last Taken Type Aspirin [Aspirin BABY CHEW TAB] 81 mg PO QDAY tab.chew 09/12/17 Unknown Rx Carvedilol [Coreg] 3.125 mg PO BID 30 Days tablet 09/12/17 Unknown Rx Triamcinolone 0.1% [Kenalog 0.1% 1 applic TP TID tube 09/12/17 Unknown Rx CREAM] oxyCODONE /ACETAMINOPHEN [Percocet 1 tab PO Q6HR PRN #13 tablet 09/12/17 Unknown Rx 5/325] Acetaminophen [Tylenol Arthritis] 650 mg PO Q6HR PRN #30 tablet.er 12/23/17 Unknown Rx Ibuprofen [Motrin] 600 mg PO Q8H PRN #30 tablet 12/23/17 Unknown Rx Permethrin 5% [Acticin 5% CREAM] 1 applicatio TP ONCE #2 tube 12/23/17 Unknown Rx oxyCODONE [Roxicodone] 5 mg PO Q6HR PRN #15 tablet 12/23/17 Unknown Rx Allergies Allergy/AdvReac Type Severity Reaction Status Date / Time influenza virus vaccine, Allergy Swelling Verified 09/24/17 03:08 specific [Influenza Virus Vacc,Specific] Sulfa (Sulfonamide Allergy Swelling Verified 09/24/17 03:08 Antibiotics) sulfamethoxazole Allergy Swelling Verified 09/24/17 03:08 [From Bactrim] trimethoprim [From Bactrim] Allergy Swelling Verified 09/24/17 03:08 ED Review of Systems ROS: Stated complaint: ALLERGIC REACTION Other details as noted in HPI Comment: All other systems reviewed and negative ED Past Medical Hx - Past Medical History Hx Hypertension: No Hx Heart Attack/AMI: No Hx Diabetes: No Hx Renal Disease: No Hx Psychiatric Treatment: Yes (PTSD, BIPOLAR, ADHD,anxiety) Hx Asthma: No Hx COPD: No Hx HIV: Yes - Surgical History Hx Coronary Stent: No Hx Pacemaker: No Additional Surgical History: D&C. breast implants. wisdom teeth removed - Social History Smoking Status: Never Smoker Substance Use Type: None - Medications Home Medications: Home Medications Medication Instructions Recorded Confirmed Last Taken Type QUEtiapine [SEROquel] 200 mg PO QHS MDD 400 09/05/16 11/28/17 10/13/16 History Efavirenz/Emtricitab/Tenofovir 600 mg PO QDAY 10/14/16 11/28/17 2 Weeks Ago History [Atripla Tablet] ~08/26/17 Dextroamphetamine/Amphetamine 20 mg PO BID 09/09/17 11/28/17 Unknown History [Adderall 20 mg Tablet] clonazePAM [Klonopin] 0.5 mg PO DAILY 09/09/17 11/28/17 Unknown History Aspirin [Aspirin BABY CHEW TAB] 81 mg PO QDAY tab.chew 09/12/17 11/28/17 Unknown Rx Carvedilol [Coreg] 3.125 mg PO BID 30 Days tablet 09/12/17 11/28/17 Unknown Rx Triamcinolone 0.1% [Kenalog 0.1% 1 applic TP TID tube 09/12/17 11/28/17 Unknown Rx CREAM] oxyCODONE /ACETAMINOPHEN [Percocet 1 tab PO Q6HR PRN #13 tablet 09/12/17 Unknown Rx 5/325] Sertraline [Zoloft] 150 mg PO QDAY 11/28/17 11/28/17 Unknown History Acetaminophen [Tylenol Arthritis] 650 mg PO Q6HR PRN #30 tablet.er 12/23/17 Unknown Rx Ibuprofen [Motrin] 600 mg PO Q8H PRN #30 tablet 12/23/17 Unknown Rx Permethrin 5% [Acticin 5% CREAM] 1 applicatio TP ONCE #2 tube 12/23/17 Unknown Rx oxyCODONE [Roxicodone] 5 mg PO Q6HR PRN #15 tablet 12/23/17 Unknown Rx ED Physical Exam - General Limitations: No Limitations General appearance: alert, in no apparent distress - Head Head exam: Present: atraumatic, normocephalic - Eye Eye exam: Present: normal appearance, EOMI. Absent: nystagmus - ENT ENT exam: Present: normal exam, normal orophraynx, mucous membranes moist, TM's normal bilaterally, normal external ear exam, other (speaking in full sentences. No stridor, dysphonia or trismus. Tooth #15 appears to have a crown dislodged, with no redness, pus, swelling or abscess around it.) - Neck Neck exam: Present: normal inspection, full ROM - Respiratory Respiratory exam: Present: normal lung sounds bilaterally. Absent: respiratory distress - Cardiovascular Cardiovascular Exam: Present: regular rate, normal rhythm, normal heart sounds. Absent: systolic murmur, diastolic murmur, rubs, gallop - GI/Abdominal GI/Abdominal exam: Present: soft, normal bowel sounds. Absent: distended, tenderness, guarding, rebound, rigid, pulsatile mass - Extremities Exam Extremities exam: Present: normal inspection, full ROM, normal capillary refill , other (punctate erythematous bite lesions noted on the left medial thigh, and right anterior thigh/proximally with ecchymosis. No distal lesions noted. Compartments are soft. 2+ pulses noted in the bilateral upper and lower extremities). Absent: tenderness, pedal edema, joint swelling, calf tenderness - Back Exam Back exam: Present: normal inspection, full ROM. Absent: tenderness, CVA tenderness (R), paraspinal tenderness, vertebral tenderness - Neurological Exam Neurological exam: Present: alert, oriented X3, CN II-XII intact, normal gait, other (Extraocular movements intact. Tongue midline. No facial droop. Facial sensation intact to light touch in the V1, V2, V3 distribution bilaterally. 5 and 5 strength in 4 extremities.. Sensation is intact to light touch in 4 extremities.). Absent: motor sensory deficit - Psychiatric Psychiatric exam: Present: normal affect, normal mood - Skin Skin exam: Present: warm, dry, intact, normal color. Absent: rash ED Course Vital Signs 12/23/17 17:14 Temperature 98.5 F Pulse Rate 75 Respiratory 16 Rate Blood Pressure 127/78 O2 Sat by Pulse 98 Oximetry ED Medical Decision Making - Lab Data Vital Signs 12/23/17 17:14 Temperature 98.5 F Pulse Rate 75 Respiratory 16 Rate Blood Pressure 127/78 O2 Sat by Pulse 98 Oximetry - Medical Decision Making Differential diagnosis, including not limited to: Insect bite, dislodged crown Assessment and pLan: 37-year-old female with 2 separate issues. Patient has a dislodged crown of tooth #15, does not appear to be superinfected , and she is protecting her airway at this time. She will be provided with pain medication and she is to follow up with outpatient dental. Rash over her anterior proximal thigh appears to be some kind of bite, does not appear to be superinfected, she will be provided with permethrin prescription, and instructions on how to have her home/apartment evaluation of possible bed bugs. Critical care attestation.: If time is entered above; I have spent that time in minutes in the direct care of this critically ill patient, excluding procedure time. ED Disposition Clinical Impression: Dentalgia, Rash Disposition: DC-01 TO HOME OR SELFCARE Is pt being admited?: No Does the pt Need Aspirin: No Condition: Stable Instructions: Toothache (ED), Insect Bite or Sting (ED) Additional Instructions: Take the medications as directed. Follow up as soon as possible with an outpatient dentist. Wash all clothing with hot water and soap. Have your appointments/house evaluated by an farm tractor mechanic for possible bed bugs. Take the permethrin cream as directed. Follow up with a primary care doctor within the next month. Return to the ER right away with fevers, chills, lethargy, irritability, projectile vomiting, change in mental status, confusion, inability to tolerate liquid feeds. Referrals: PRIMARY CARE, [Primary Care Provider] - 3-5 Days [facility] [Outside] - 3-5 Days
== END 2017-12-23 18:28 | disposition home or self-care (01) ==
LOC: ED 17:10
DX: K08.89 Other specified disorders of teeth and supporting structures (principal); R21 Rash and other nonspecific skin eruption; Z88.1 Allergy status to other antibiotic agents; Z88.2 Allergy status to sulfonamides; Z88.7 Allergy status to serum and vaccine
CPT/HCPCS: 96372; 99282; J1885

== ENCOUNTER 2018-01-03 08:15 | Emergency (ER) | payer MEDICAID ==
--- NOTE | 2018-01-03 09:10 | XRay Report ---
RIGHT ANKLE, 3 views: History: right ankle pain. Findings: Mild soft tissue swelling is identified. No acute osseous abnormality or joint pathology is identified. The fifth metatarsal base is intact. Impression: Soft tissue swelling. No acute osseous injury.
--- NOTE | 2018-01-03 12:30 | Emergency Department Report ---
ED Extremity Problem HPI - General Chief complaint: Extremity Injury, Lower Stated complaint: SWOLLEN ANKLE Time Seen by Provider: 01/03/18 11:21 Source: patient Mode of arrival: Ambulatory Limitations: No Limitations - History of Present Illness Initial comments: This is 29-year-old female here complaining of right ankle injury for 2 days. She says she stands a lot at work. Patient is also reporting that she is having pain to both her feet this radiated up into her leg and although she injured her right ankle she is also having left foot swelling and pain. Patient denies being on control. No recent long distance travel by car or airplane for more than 3 hours. Denies any history of blood clots or family history of blood clots. Denies any clotting disorder. Denies any recent convalescent. Denies any recent history of cast or splint placement to her extremities. Denies any shortness of breath or chest pain. Pain is 8 out of 10 and worse with movement.. It painful to palpate. Patient has a history of D &C, and hypertension. She has a history of PTSD, bipolar, ADHD and anxiety. She is bilateral breast implants. Last menstrual period was 12/14/2017. Denies any history of cancer. Denies any fever or chills. MD Complaint: extremity pain, extremity swelling, joint swelling, joint paint Onset/Timin -: days(s) Location: bilateral lower extremity History of Same: No -: No myalgia, Yes arthralgia, No fever, No associated dyspnea, No associated chest pain Radiation: proximal Severity scale (0 -10): 8 Quality: aching Consistency: constant Improves with: immobilization, rest Worsens with: weight bearing, walking, exertion, palpation Associated Symptoms: arthralgias. denies: chest pain, shortness of breath, fever, myalgias, rash - Related Data Home Medications Medication Instructions Recorded Confirmed Last Taken QUEtiapine [SEROquel] 200 mg PO QHS MDD 400 09/05/16 11/28/17 10/13/16 Efavirenz/Emtricitab/Tenofovir 600 mg PO QDAY 10/14/16 11/28/17 2 Weeks Ago [Atripla Tablet] ~08/26/17 Dextroamphetamine/Amphetamine 20 mg PO BID 09/09/17 11/28/17 Unknown [Adderall 20 mg Tablet] clonazePAM [Klonopin] 0.5 mg PO DAILY 09/09/17 11/28/17 Unknown Sertraline [Zoloft] 150 mg PO QDAY 11/28/17 11/28/17 Unknown Previous Rx's Medication Instructions Recorded Last Taken Type Aspirin [Aspirin BABY CHEW TAB] 81 mg PO QDAY tab.chew 09/12/17 Unknown Rx Carvedilol [Coreg] 3.125 mg PO BID 30 Days tablet 09/12/17 Unknown Rx Triamcinolone 0.1% [Kenalog 0.1% 1 applic TP TID tube 09/12/17 Unknown Rx CREAM] oxyCODONE /ACETAMINOPHEN [Percocet 1 tab PO Q6HR PRN #13 tablet 09/12/17 Unknown Rx 5/325] Acetaminophen [Tylenol Arthritis] 650 mg PO Q6HR PRN #30 tablet.er 12/23/17 Unknown Rx Permethrin 5% [Acticin 5% CREAM] 1 applicatio TP ONCE #2 tube 12/23/17 Unknown Rx oxyCODONE [Roxicodone] 5 mg PO Q6HR PRN #15 tablet 12/23/17 Unknown Rx Ibuprofen [Motrin 600 MG tab] 600 mg PO Q8H PRN #12 tablet 01/03/18 Unknown Rx traMADol [Ultram] 50 mg PO Q6HR PRN #12 tablet 01/03/18 Unknown Rx Allergies Allergy/AdvReac Type Severity Reaction Status Date / Time influenza virus vaccine, Allergy Swelling Verified 09/24/17 03:08 specific [Influenza Virus Vacc,Specific] Sulfa (Sulfonamide Allergy Swelling Verified 09/24/17 03:08 Antibiotics) sulfamethoxazole Allergy Swelling Verified 09/24/17 03:08 [From Bactrim] trimethoprim [From Bactrim] Allergy Swelling Verified 09/24/17 03:08 ED Review of Systems ROS: Stated complaint: SWOLLEN ANKLE Other details as noted in HPI Comment: All other systems reviewed and negative Constitutional: no symptoms reported Respiratory: no symptoms reported Cardiovascular: denies: chest pain, palpitations, dyspnea on exertion, orthopnea , edema, syncope, paroxysmal nocturnal dyspnea Gastrointestinal: denies: abdominal pain, nausea, vomiting Genitourinary: denies: dysuria, hematuria Musculoskeletal: joint swelling, arthralgia. denies: back pain, myalgia Skin: denies: rash Neurological: abnormal gait. denies: headache, numbness, paresthesias ED Past Medical Hx - Past Medical History Previous Medical History?: Yes Hx Hypertension: No Hx Heart Attack/AMI: No Hx Diabetes: No Hx Renal Disease: No Hx Psychiatric Treatment: Yes (PTSD, BIPOLAR, ADHD,anxiety) Hx Asthma: No Hx COPD: No Hx HIV: Yes - Surgical History Past Surgical History?: Yes Hx Coronary Stent: No Hx Pacemaker: No Additional Surgical History: D&C. breast implants. wisdom teeth removed - Family History Family history: hypertension - Social History Smoking Status: Never Smoker Substance Use Type: Alcohol, Non Opiate Pain, Prescribed - Medications Home Medications: Home Medications Medication Instructions Recorded Confirmed Last Taken Type QUEtiapine [SEROquel] 200 mg PO QHS MDD 400 09/05/16 11/28/17 10/13/16 History Efavirenz/Emtricitab/Tenofovir 600 mg PO QDAY 10/14/16 11/28/17 2 Weeks Ago History [Atripla Tablet] ~08/26/17 Dextroamphetamine/Amphetamine 20 mg PO BID 09/09/17 11/28/17 Unknown History [Adderall 20 mg Tablet] clonazePAM [Klonopin] 0.5 mg PO DAILY 09/09/17 11/28/17 Unknown History Aspirin [Aspirin BABY CHEW TAB] 81 mg PO QDAY tab.chew 09/12/17 11/28/17 Unknown Rx Carvedilol [Coreg] 3.125 mg PO BID 30 Days tablet 09/12/17 11/28/17 Unknown Rx Triamcinolone 0.1% [Kenalog 0.1% 1 applic TP TID tube 09/12/17 11/28/17 Unknown Rx CREAM] oxyCODONE /ACETAMINOPHEN [Percocet 1 tab PO Q6HR PRN #13 tablet 09/12/17 Unknown Rx 5/325] Sertraline [Zoloft] 150 mg PO QDAY 11/28/17 11/28/17 Unknown History Acetaminophen [Tylenol Arthritis] 650 mg PO Q6HR PRN #30 tablet.er 12/23/17 Unknown Rx Permethrin 5% [Acticin 5% CREAM] 1 applicatio TP ONCE #2 tube 12/23/17 Unknown Rx oxyCODONE [Roxicodone] 5 mg PO Q6HR PRN #15 tablet 12/23/17 Unknown Rx Ibuprofen [Motrin 600 MG tab] 600 mg PO Q8H PRN #12 tablet 01/03/18 Unknown Rx traMADol [Ultram] 50 mg PO Q6HR PRN #12 tablet 01/03/18 Unknown Rx ED Physical Exam - General Limitations: No Limitations General appearance: alert, in no apparent distress - Head Head exam: Present: atraumatic, normocephalic, normal inspection - Eye Eye exam: Present: normal appearance, PERRL, EOMI Pupils: Present: normal accommodation - ENT ENT exam: Present: normal exam, normal orophraynx, mucous membranes moist - Neck Neck exam: Present: normal inspection, full ROM. Absent: tenderness, meningismus, lymphadenopathy - Respiratory Respiratory exam: Present: normal lung sounds bilaterally. Absent: respiratory distress, chest wall tenderness, accessory muscle use - Cardiovascular Cardiovascular Exam: Present: regular rate, normal rhythm, normal heart sounds. Absent: systolic murmur, diastolic murmur - GI/Abdominal GI/Abdominal exam: Present: soft, normal bowel sounds. Absent: distended, tenderness, guarding, rebound, rigid, organomegaly, mass, bruit, pulsatile mass - Extremities Exam Extremities exam: Present: normal inspection, full ROM (patient with full range of motion to all extremity except for her left lower extremity ankle and foot is swollen and painful.), tenderness (bilateral ankle and foot), normal capillary refill, pedal edema (feet), joint swelling, calf tenderness (patient reports that pain radiates up her calf and is tender to palpate.), other (no cyanosis or clubbing to extremities. +2 pulses all extremities. No neurovascular compromise. No laceration, abrasion or contusion noted to extremities.) - Expanded Lower Extremity Exam Right Neuro vascular tendon exam: Present: no vascular compromise, significant pain with passive ROM of distal joint (left). Absent: pulse deficit, abnormal cap refill, sensory deficit, tendon deficit, extremity cold to touch, pallor, abnormal 2-point discrimination, decreased fine/light touch, foot drop, peroneal nerve deficit Gait: Positive: antalgic - Back Exam Back exam: Present: normal inspection, full ROM. Absent: tenderness, CVA tenderness (R), CVA tenderness (L), muscle spasm, paraspinal tenderness, vertebral tenderness, rash noted - Neurological Exam Neurological exam: Present: alert, oriented X3, abnormal gait (abnormal gait to right lower extremity due to injury, swelling and pain.), reflexes normal. Absent: motor sensory deficit - Psychiatric Psychiatric exam: Present: normal affect, normal mood - Skin Skin exam: Present: warm, dry, intact, normal color. Absent: rash ED Course Vital Signs 01/03/18 01/03/18 01/03/18 08:34 12:38 13:23 Temperature 97.5 F L 97.5 F L Pulse Rate 65 58 L Respiratory 18 16 16 Rate Blood Pressure 122/71 Blood Pressure 121/49 [Left] O2 Sat by Pulse 100 100 Oximetry - Reevaluation(s) Reevaluation #1: 01/03/18 14:34 Patient given Toradol 60 mg IM and emergency room for pain. - Orthopedic Splinting/Casting Injury #1 Side: right Upper Extremity Immobilizer: Abelardo wrap Lower Extremity Injury Location: ankle, foot Other Orthopedic Equipment: crutches Additional Comments: S/P Abelardo wrap patient will good color movement sensation in temperature to both feet. ED Medical Decision Making - Lab Data Result diagrams: 01/03/18 12:38 01/03/18 12:38 Lab Results 01/03/18 01/03/18 01/03/18 Range/Units 12:38 12:38 12:38 WBC 4.0 L (4.5-11.0) K/mm3 RBC 4.31 (3.65-5.03) M/mm3 Hgb 11.1 (10.1-14.3) gm/dl Hct 34.0 (30.3-42.9) % MCV 79 (79-97) fl MCH 26 L (28-32) pg MCHC 33 (30-34) % RDW 18.9 H (13.2-15.2) % Plt Count 332 (140-440) K/mm3 Lymph % (Auto) 42.2 H (13.4-35.0) % [place] % (Auto) 11.9 H (0.0-7.3) % Eos % (Auto) 2.2 (0.0-4.3) % Baso % (Auto) 0.5 (0.0-1.8) % Lymph # 1.7 (1.2-5.4) K/mm3 [place] # 0.5 (0.0-0.8) K/mm3 Eos # 0.1 (0.0-0.4) K/mm3 Baso # 0.0 (0.0-0.1) K/mm3 Seg Neutrophils % 43.2 (40.0-70.0) % Seg Neutrophils # 1.8 (1.8-7.7) K/mm3 PT 11.6 L (12.2-14.9) Sec. INR 0.81 L (0.87-1.13) APTT 30.3 (24.2-36.6) Sec. Sodium 137 (137-145) mmol/L Potassium 4.3 (3.6-5.0) mmol/L Chloride 99.4 (98-107) mmol/L Carbon Dioxide 29 (22-30) mmol/L Anion Gap 13 mmol/L BUN 9 (7-17) mg/dL Creatinine 0.6 L (0.7-1.2) mg/dL Estimated GFR > 60 ml/min BUN/Creatinine Ratio 15 % Glucose 81 (65-100) mg/dL Calcium 8.9 (8.4-10.2) mg/dL - Radiology Data Radiology results: report reviewed X-ray of right foot reveals no acute fracture dislocation Bilateral lower extremity Doppler ultrasound venous reveals no DVT or SVT - Medical Decision Making ED course: She reports that she has swelling to her larynx ankle and feet and that she works at [employer] where she stands a lot and feet. She said she also injured her right ankle and foot 2 days ago when she stepped off a curb and twisted. She is a increase in pain and swelling more on right foot and ankle then left. Patient denies any history of diabetes but she does have high blood pressure. She has multiple psychiatric disorders. She had CBC PT/PTT and chemistry with minor abnormalities but nothing significant. She has x-ray of her right foot which is soft tissue swelling but no acute fracture or bony abnormality. Patient had ultrasound bilateral lower extremity, venous Doppler that shows no SVT or DVT. All results were discussed with patient and she does have a primary care clinic that she follows up with. I discussed with her that she needs to schedule an appointment for follow-up visit in 2 days. I also discussed with her that discharge and elevate her legs when she is sitting or lying down and also try to wear some RJ stockings which will help to reduce swelling to her legs. Patient had Abelardo wrap to right foot and ankle and given crutches and to rest for 3 days. Patient discharged home with prescription for Motrin, and Ultram. She is also advised to follow-up with orthopedic doctor in 2-3 days. Critical care attestation.: If time is entered above; I have spent that time in minutes in the direct care of this critically ill patient, excluding procedure time. ED Disposition Clinical Impression: Bilateral lower extremity pain, Swelling of both lower extremities Strain of right ankle and foot Qualifiers: Encounter type: initial encounter Qualified Code(s): S96.911A - Strain of unspecified muscle and tendon at ankle and foot level, right foot, initial encounter Disposition: TO HOME OR SELFCARE Is pt being admited?: No Does the pt Need Aspirin: No Condition: Stable Instructions: Arthralgia (ED), RICE Therapy (ED), Leg Edema (ED) Additional Instructions: Please follow up with orthopedic doctor as instructed See discharge instruction rice therapy Follow-up with your primary care clinic as instructed Elevate bilateral lower extremity while sitting and lying. Try to decrease sodium in your diet compression stockings at pharmacy, these will help to resolve swelling Prescriptions: Ibuprofen [Motrin 600 MG tab] 600 mg PO Q8H PRN #12 tablet PRN Reason: Pain traMADol [Ultram] 50 mg PO Q6HR PRN #12 tablet PRN Reason: Pain Referrals: PRIMARY CAREMD [Primary Care Provider] - 01/05/18 JIE MOYER MD [Staff Physician] - 01/05/18 Forms: Work/School Release Form(ED)
[2018-01-03] MEDS ORDERED: TORADOL IM ONE (12:31)
[2018-01-03 12:55] LABS: Basophils % (Auto) 0.5 % (0.0-1.8); Eosinophils # (Auto) 0.1 K/mm3 (0.0-0.4); Eosinophils % (Auto) 2.2 % (0.0-4.3); Hemoglobin 11.1 gm/dl (10.1-14.3); Lymphocytes # (Auto) 1.7 K/mm3 (1.2-5.4); Lymphocytes % (Auto) 42.2 % (13.4-35.0); Mean Corpuscular HGB Conc 33 % (30-34); Mean Corpuscular Volume 79 fl (79-97); Monocytes # (Auto) 0.5 K/mm3 (0.0-0.8); Monocytes % (Auto) 11.9 % (0.0-7.3); Platelet Count 332 K/mm3 (140-440); Red Blood Count 4.31 M/mm3 (3.65-5.03); Red Cell Distribution Width 18.9 % (13.2-15.2)
[2018-01-03 12:58] LABS: Mean Corpuscular Hemoglobin 26 pg (28-32)
[2018-01-03 13:05] LABS: INR 0.81 (0.87-1.13)
[2018-01-03 13:06] LABS: Partial Thromboplastin Time 30.3 Sec. (24.2-36.6)
[2018-01-03 13:08] LABS: BUN/Creatinine Ratio 15; Blood Urea Nitrogen 9 mg/dL (7-17); Calcium 8.9 mg/dL (8.4-10.2); Hemolysis Index 15
[2018-01-03 13:25] VITALS: BP 121/49
== END 2018-01-03 14:55 | disposition home or self-care (01) ==
LOC: ED 08:15
DX: S96.911A Strain of unspecified muscle and tendon at ankle and foot level, right foot, initial encounter (principal); F31.9 Bipolar disorder, unspecified; F43.10 Post-traumatic stress disorder, unspecified; F90.9 Attention-deficit hyperactivity disorder, unspecified type; F41.9 Anxiety disorder, unspecified; Z79.82 Long term (current) use of aspirin; Z88.2 Allergy status to sulfonamides; Z88.8 Allergy status to other drugs, medicaments and biological substances; W22.8XXA Striking against or struck by other objects, initial encounter; Y93.89 Activity, other specified; Y92.89 Other specified places as the place of occurrence of the external cause; Y99.8 Other external cause status
CPT/HCPCS: 36415; 73610; 80048; 85025; 85610; 85730; 93970; J1885; 96372

== ENCOUNTER 2018-01-19 16:16 | Emergency (ER) | payer MEDICAID ==
[2018-01-19 17:42] LABS: Hematocrit 33.4 % (30.3-42.9); Hemoglobin 10.5 gm/dl (10.1-14.3); Mean Corpuscular HGB Conc 31 % (30-34); Mean Corpuscular Volume 80 fl (79-97); Platelet Count 397 K/mm3 (140-440); Red Blood Count 4.16 M/mm3 (3.65-5.03); Red Cell Distribution Width 18.7 % (13.2-15.2)
[2018-01-19 17:47] LABS: Mean Corpuscular Hemoglobin 25 pg (28-32)
[2018-01-19 18:02] LABS: BUN/Creatinine Ratio 8; Blood Urea Nitrogen 9 mg/dL (7-17); Calcium 8.1 mg/dL (8.4-10.2); Hemolysis Index 3
[2018-01-19 18:51] LABS: Bilirubin,Urine NEG (Negative); Blood,Urine NEG (Negative); Color,Urine Yellow (Yellow); Protein,Urine <15 mg/dL mg/dL (Negative); Urobilinogen,Urine < 2.0 mg/dL (<2.0)
[2018-01-19 18:53] LABS: HCG Qualitative,Urine Negative (Negative)
[2018-01-20 04:27] VITALS: BP 131/80
--- NOTE | 2018-01-20 05:00 | Emergency Department Report ---
HPI - General Chief Complaint: Urogenital-Female Time Seen by Provider: 01/20/18 04:57 - HPI HPI: Nausea vomiting diarrhea. ED Past Medical Hx - Past Medical History Hx Hypertension: No Hx Heart Attack/AMI: No Hx Diabetes: No Hx Renal Disease: No Hx Psychiatric Treatment: Yes (PTSD, BIPOLAR, ADHD,anxiety) Hx Asthma: No Hx COPD: No Hx HIV: Yes - Surgical History Hx Coronary Stent: No Hx Pacemaker: No Additional Surgical History: D&C. breast implants. wisdom teeth removed - Social History Smoking Status: Never Smoker Substance Use Type: None - Medications Home Medications: Home Medications Medication Instructions Recorded Confirmed Last Taken Type QUEtiapine [SEROquel] 200 mg PO QHS MDD 400 09/05/16 11/28/17 10/13/16 History Efavirenz/Emtricitab/Tenofovir 600 mg PO QDAY 10/14/16 11/28/17 2 Weeks Ago History [Atripla Tablet] ~08/26/17 Dextroamphetamine/Amphetamine 20 mg PO BID 09/09/17 11/28/17 Unknown History [Adderall 20 mg Tablet] clonazePAM [Klonopin] 0.5 mg PO DAILY 09/09/17 11/28/17 Unknown History Aspirin [Aspirin BABY CHEW TAB] 81 mg PO QDAY tab.chew 09/12/17 11/28/17 Unknown Rx Carvedilol [Coreg] 3.125 mg PO BID 30 Days tablet 09/12/17 11/28/17 Unknown Rx Triamcinolone 0.1% [Kenalog 0.1% 1 applic TP TID tube 09/12/17 11/28/17 Unknown Rx CREAM] oxyCODONE /ACETAMINOPHEN [Percocet 1 tab PO Q6HR PRN #13 tablet 09/12/17 Unknown Rx 5/325] Sertraline [Zoloft] 150 mg PO QDAY 11/28/17 11/28/17 Unknown History Acetaminophen [Tylenol Arthritis] 650 mg PO Q6HR PRN #30 tablet.er 12/23/17 Unknown Rx Permethrin 5% [Acticin 5% CREAM] 1 applicatio TP ONCE #2 tube 12/23/17 Unknown Rx oxyCODONE [Roxicodone] 5 mg PO Q6HR PRN #15 tablet 12/23/17 Unknown Rx Ibuprofen [Motrin 600 MG tab] 600 mg PO Q8H PRN #12 tablet 01/03/18 Unknown Rx traMADol [Ultram] 50 mg PO Q6HR PRN #12 tablet 01/03/18 Unknown Rx Dicyclomine [Bentyl] 10 mg PO QID #20 capsule 01/20/18 Unknown Rx Promethazine [Phenergan TAB] 25 mg PO Q6HR PRN #14 tab 01/20/18 Unknown Rx ED Review of Systems ROS: Stated complaint: NAUSEA Other details as noted in HPI Physical Exam - Physical Exam Vital Signs: Vital Signs 01/19/18 01/20/18 17:08 04:27 Temperature 98.6 F 98.1 F Pulse Rate 95 H 78 Respiratory 18 14 Rate Blood Pressure 129/74 131/80 O2 Sat by Pulse 100 99 Oximetry Physical Exam: - Physical Exam Physical Exam: - General Limitations: No Limitations General appearance: alert, in no apparent distress, obese - Head Head exam: Present: atraumatic, normocephalic - Eye Eye exam: Present: normal appearance - ENT ENT exam: Present: mucous membranes moist - Neck Neck exam: Present: normal inspection - Respiratory Respiratory exam: Present: normal lung sounds bilaterally. Absent: respiratory distress - Cardiovascular Cardiovascular Exam: Present: normal rhythm, tachycardia. Absent: systolic murmur, diastolic murmur, rubs, gallop - GI/Abdominal GI/Abdominal exam: Present: soft, normal bowel sounds - Extremities Exam Extremities exam: Present: normal inspection - Back Exam Back exam: Present: normal inspection - Neurological Exam Neurological exam: Present: alert, oriented X3 - Psychiatric Psychiatric exam: normal affect and mood - Skin Skin exam: Present: warm, dry, intact, normal color. Absent: rash ED Course Vital Signs 01/19/18 01/20/18 17:08 04:27 Temperature 98.6 F 98.1 F Pulse Rate 95 H 78 Respiratory 18 14 Rate Blood Pressure 129/74 131/80 O2 Sat by Pulse 100 99 Oximetry ED Medical Decision Making - Lab Data Result diagrams: 01/19/18 17:20 01/19/18 17:20 Critical care attestation.: If time is entered above; I have spent that time in minutes in the direct care of this critically ill patient, excluding procedure time. ED Disposition Clinical Impression: Enteritis Disposition: DC-01 TO HOME OR SELFCARE Is pt being admited?: No Does the pt Need Aspirin: No Condition: Stable Prescriptions: Dicyclomine [Bentyl] 10 mg PO QID #20 capsule Promethazine [Phenergan TAB] 25 mg PO Q6HR PRN #14 tab PRN Reason: Nausea Referrals: IVA ALBARADO MD [Primary Care Provider] - 3-5 Days
== END 2018-01-20 05:13 | disposition home or self-care (01) ==
LOC: ED 16:16
DX: K52.9 Noninfective gastroenteritis and colitis, unspecified (principal); F41.9 Anxiety disorder, unspecified; F31.9 Bipolar disorder, unspecified; F90.9 Attention-deficit hyperactivity disorder, unspecified type; F43.10 Post-traumatic stress disorder, unspecified; Z88.7 Allergy status to serum and vaccine
CPT/HCPCS: 36415; 80048; 81001; 81025; 85027; 99283

== ENCOUNTER 2018-03-05 19:41 | Emergency (ER) | payer MEDICAID ==
[2018-03-05 20:29] VITALS: BP 128/74
[2018-03-05] MEDS ORDERED: TORADOL IM ONE (22:08)
--- NOTE | 2018-03-05 22:13 | Emergency Department Report ---
ED ENT HPI - General Chief complaint: Dental/Oral Stated complaint: TOOTHACHE Time Seen by Provider: 03/05/18 21:53 Source: patient Mode of arrival: Ambulatory Limitations: No Limitations - History of Present Illness Initial comments: This is a 37-year-old female nontoxic, well nourished in appearance, no acute signs of distress presents to the ED with c/o of left upper toothache 3 weeks. Patient denies following up with a dentist. Patient stated that pain radiates from his job to his left side of head. Patient otherwise denies any head trauma. Patient describes toothache as aching level of 8 out of 10. Patient denies any facial swelling. Patient denies any numbness, tingling, fever, chills, headache, stiff neck, abdominal pain, chest pain, shortness of breath. Patient stated allergies to sulfa, Bactrim, and influenza vaccine. Past medical history includes HIV. MD complaint: tooth pain -: week(s) (3) Location: tooth # 1 - pain Severity: mild Severity scale (0 -10): 8 Quality: aching Consistency: constant Improves with: none Worsens with: none Associated Symptoms: gum swelling, toothache. denies: fever, cough, pain with swallowing, sore throat, tinnitus, hearing loss, discharge from ear, rhinorrhea - Related Data Home Medications Medication Instructions Recorded Confirmed Last Taken QUEtiapine [SEROquel] 200 mg PO QHS MDD 400 09/05/16 11/28/17 10/13/16 Efavirenz/Emtricitab/Tenofovir 600 mg PO QDAY 10/14/16 11/28/17 2 Weeks Ago [Atripla Tablet] ~08/26/17 Dextroamphetamine/Amphetamine 20 mg PO BID 09/09/17 11/28/17 Unknown [Adderall 20 mg Tablet] clonazePAM [Klonopin] 0.5 mg PO DAILY 09/09/17 11/28/17 Unknown Sertraline [Zoloft] 150 mg PO QDAY 11/28/17 11/28/17 Unknown Previous Rx's Medication Instructions Recorded Last Taken Type Aspirin [Aspirin BABY CHEW TAB] 81 mg PO QDAY tab.chew 09/12/17 Unknown Rx Carvedilol [Coreg] 3.125 mg PO BID 30 Days tablet 09/12/17 Unknown Rx Triamcinolone 0.1% [Kenalog 0.1% 1 applic TP TID tube 09/12/17 Unknown Rx CREAM] oxyCODONE /ACETAMINOPHEN [Percocet 1 tab PO Q6HR PRN #13 tablet 09/12/17 Unknown Rx 5/325] Acetaminophen [Tylenol Arthritis] 650 mg PO Q6HR PRN #30 tablet.er 12/23/17 Unknown Rx Permethrin 5% [Acticin 5% CREAM] 1 applicatio TP ONCE #2 tube 12/23/17 Unknown Rx oxyCODONE [Roxicodone] 5 mg PO Q6HR PRN #15 tablet 12/23/17 Unknown Rx Ibuprofen [Motrin 600 MG tab] 600 mg PO Q8H PRN #12 tablet 01/03/18 Unknown Rx traMADol [Ultram] 50 mg PO Q6HR PRN #12 tablet 01/03/18 Unknown Rx Dicyclomine [Bentyl] 10 mg PO QID #20 capsule 01/20/18 Unknown Rx Promethazine [Phenergan TAB] 25 mg PO Q6HR PRN #14 tab 01/20/18 Unknown Rx Amoxicillin/K Clav Tab [Augmentin 1 tab PO Q12HR #20 tab 03/05/18 Unknown Rx 875 mg] Chlorhexidine Mouthwash [Peridex] 15 ml MM BID 5 Days bottle 03/05/18 Unknown Rx Ibuprofen [Motrin] 600 mg PO Q8H PRN #30 tablet 03/05/18 Unknown Rx Allergies Allergy/AdvReac Type Severity Reaction Status Date / Time influenza virus vaccine, Allergy Swelling Verified 09/24/17 03:08 specific [Influenza Virus Vacc,Specific] Sulfa (Sulfonamide Allergy Swelling Verified 09/24/17 03:08 Antibiotics) sulfamethoxazole Allergy Swelling Verified 09/24/17 03:08 [From Bactrim] trimethoprim [From Bactrim] Allergy Swelling Verified 09/24/17 03:08 ED Dental HPI - General Chief complaint: Dental/Oral Stated complaint: TOOTHACHE Time Seen by Provider: 03/05/18 21:53 Source: patient Mode of arrival: Ambulatory Limitations: No Limitations - Related Data Home Medications Medication Instructions Recorded Confirmed Last Taken QUEtiapine [SEROquel] 200 mg PO QHS MDD 400 09/05/16 11/28/17 10/13/16 Efavirenz/Emtricitab/Tenofovir 600 mg PO QDAY 10/14/16 11/28/17 2 Weeks Ago [Atripla Tablet] ~08/26/17 Dextroamphetamine/Amphetamine 20 mg PO BID 09/09/17 11/28/17 Unknown [Adderall 20 mg Tablet] clonazePAM [Klonopin] 0.5 mg PO DAILY 09/09/17 11/28/17 Unknown Sertraline [Zoloft] 150 mg PO QDAY 11/28/17 11/28/17 Unknown Previous Rx's Medication Instructions Recorded Last Taken Type Aspirin [Aspirin BABY CHEW TAB] 81 mg PO QDAY tab.chew 09/12/17 Unknown Rx Carvedilol [Coreg] 3.125 mg PO BID 30 Days tablet 09/12/17 Unknown Rx Triamcinolone 0.1% [Kenalog 0.1% 1 applic TP TID tube 09/12/17 Unknown Rx CREAM] oxyCODONE /ACETAMINOPHEN [Percocet 1 tab PO Q6HR PRN #13 tablet 09/12/17 Unknown Rx 5/325] Acetaminophen [Tylenol Arthritis] 650 mg PO Q6HR PRN #30 tablet.er 12/23/17 Unknown Rx Permethrin 5% [Acticin 5% CREAM] 1 applicatio TP ONCE #2 tube 12/23/17 Unknown Rx oxyCODONE [Roxicodone] 5 mg PO Q6HR PRN #15 tablet 12/23/17 Unknown Rx Ibuprofen [Motrin 600 MG tab] 600 mg PO Q8H PRN #12 tablet 01/03/18 Unknown Rx traMADol [Ultram] 50 mg PO Q6HR PRN #12 tablet 01/03/18 Unknown Rx Dicyclomine [Bentyl] 10 mg PO QID #20 capsule 01/20/18 Unknown Rx Promethazine [Phenergan TAB] 25 mg PO Q6HR PRN #14 tab 01/20/18 Unknown Rx Amoxicillin/K Clav Tab [Augmentin 1 tab PO Q12HR #20 tab 03/05/18 Unknown Rx 875 mg] Chlorhexidine Mouthwash [Peridex] 15 ml MM BID 5 Days bottle 03/05/18 Unknown Rx Ibuprofen [Motrin] 600 mg PO Q8H PRN #30 tablet 03/05/18 Unknown Rx Allergies Allergy/AdvReac Type Severity Reaction Status Date / Time influenza virus vaccine, Allergy Swelling Verified 09/24/17 03:08 specific [Influenza Virus Vacc,Specific] Sulfa (Sulfonamide Allergy Swelling Verified 09/24/17 03:08 Antibiotics) sulfamethoxazole Allergy Swelling Verified 09/24/17 03:08 [From Bactrim] trimethoprim [From Bactrim] Allergy Swelling Verified 09/24/17 03:08 ED Review of Systems ROS: Stated complaint: TOOTHACHE Other details as noted in HPI Constitutional: denies: chills, fever Eyes: denies: eye pain, eye discharge, vision change ENT: dental pain. denies: ear pain, throat pain Respiratory: denies: cough, shortness of breath, wheezing Cardiovascular: denies: chest pain, palpitations Endocrine: no symptoms reported Gastrointestinal: denies: abdominal pain, nausea, diarrhea Genitourinary: denies: urgency, dysuria, discharge Musculoskeletal: denies: back pain, joint swelling, arthralgia Skin: denies: rash, lesions Neurological: denies: headache, weakness, paresthesias Psychiatric: denies: anxiety, depression Hematological/Lymphatic: denies: easy bleeding, easy bruising ED Past Medical Hx - Past Medical History Previous Medical History?: Yes Hx Hypertension: No Hx Heart Attack/AMI: No Hx Diabetes: No Hx Renal Disease: No Hx Psychiatric Treatment: Yes (PTSD, BIPOLAR, ADHD,anxiety) Hx Asthma: No Hx COPD: No Hx HIV: Yes - Surgical History Hx Coronary Stent: No Hx Pacemaker: No Additional Surgical History: D&C. breast implants. wisdom teeth removed - Social History Smoking Status: Never Smoker - Medications Home Medications: Home Medications Medication Instructions Recorded Confirmed Last Taken Type QUEtiapine [SEROquel] 200 mg PO QHS MDD 400 09/05/16 11/28/17 10/13/16 History Efavirenz/Emtricitab/Tenofovir 600 mg PO QDAY 10/14/16 11/28/17 2 Weeks Ago History [Atripla Tablet] ~08/26/17 Dextroamphetamine/Amphetamine 20 mg PO BID 09/09/17 11/28/17 Unknown History [Adderall 20 mg Tablet] clonazePAM [Klonopin] 0.5 mg PO DAILY 09/09/17 11/28/17 Unknown History Aspirin [Aspirin BABY CHEW TAB] 81 mg PO QDAY tab.chew 09/12/17 11/28/17 Unknown Rx Carvedilol [Coreg] 3.125 mg PO BID 30 Days tablet 09/12/17 11/28/17 Unknown Rx Triamcinolone 0.1% [Kenalog 0.1% 1 applic TP TID tube 09/12/17 11/28/17 Unknown Rx CREAM] oxyCODONE /ACETAMINOPHEN [Percocet 1 tab PO Q6HR PRN #13 tablet 09/12/17 Unknown Rx 5/325] Sertraline [Zoloft] 150 mg PO QDAY 11/28/17 11/28/17 Unknown History Acetaminophen [Tylenol Arthritis] 650 mg PO Q6HR PRN #30 tablet.er 12/23/17 Unknown Rx Permethrin 5% [Acticin 5% CREAM] 1 applicatio TP ONCE #2 tube 12/23/17 Unknown Rx oxyCODONE [Roxicodone] 5 mg PO Q6HR PRN #15 tablet 12/23/17 Unknown Rx Ibuprofen [Motrin 600 MG tab] 600 mg PO Q8H PRN #12 tablet 01/03/18 Unknown Rx traMADol [Ultram] 50 mg PO Q6HR PRN #12 tablet 01/03/18 Unknown Rx Dicyclomine [Bentyl] 10 mg PO QID #20 capsule 01/20/18 Unknown Rx Promethazine [Phenergan TAB] 25 mg PO Q6HR PRN #14 tab 01/20/18 Unknown Rx Amoxicillin/K Clav Tab [Augmentin 1 tab PO Q12HR #20 tab 03/05/18 Unknown Rx 875 mg] Chlorhexidine Mouthwash [Peridex] 15 ml MM BID 5 Days bottle 03/05/18 Unknown Rx Ibuprofen [Motrin] 600 mg PO Q8H PRN #30 tablet 03/05/18 Unknown Rx ED Physical Exam - General Limitations: No Limitations General appearance: alert, in no apparent distress - Head Head exam: Present: atraumatic, normocephalic - Eye Eye exam: Present: normal appearance Pupils: Present: normal accommodation - ENT ENT exam: Present: mucous membranes moist, TM's normal bilaterally, normal external ear exam - Expanded ENT Exam Expanded Ear exam: Present: normal external inspection Mouth exam: Present: normal external inspection. Absent: drooling, trismus, muffled voice, tongue normal, tongue elevation, laceration Teeth exam: Present: dental caries, fractured tooth #, dental tenderness #, gingival enlargement, other (no facial swelling noted. ) Throat exam: Positive: normal inspection, other (Uvula midline. ). Negative: tonsillar erythema, tonsillomegaly, tonsillar exudate, R peritonsillar mass, L peritonsillar mass - Neck Neck exam: Present: normal inspection, full ROM. Absent: tenderness, meningismus, lymphadenopathy - Respiratory Respiratory exam: Present: normal lung sounds bilaterally. Absent: respiratory distress, wheezes, rales, rhonchi, stridor, chest wall tenderness, accessory muscle use, decreased breath sounds, prolonged expiratory - Cardiovascular Cardiovascular Exam: Present: regular rate, normal rhythm, normal heart sounds. Absent: irregular rhythm, systolic murmur, diastolic murmur, rubs, gallop - GI/Abdominal GI/Abdominal exam: Present: soft, normal bowel sounds. Absent: distended, tenderness, guarding, rebound, rigid, diminished bowel sounds - Rectal Rectal exam: Present: deferred - Extremities Exam Extremities exam: Present: normal inspection, full ROM, normal capillary refill - Back Exam Back exam: Present: normal inspection, full ROM - Neurological Exam Neurological exam: Present: alert, oriented X3, normal gait - Psychiatric Psychiatric exam: Present: normal affect, normal mood - Skin Skin exam: Present: warm, dry, intact, normal color. Absent: rash ED Course Vital Signs 03/05/18 03/05/18 20:23 21:29 Temperature 98.1 F 98.1 F Pulse Rate 105 H 102 H Respiratory 18 18 Rate Blood Pressure 128/74 128/74 O2 Sat by Pulse 100 100 Oximetry - Reevaluation(s) Reevaluation #1: 03/05/18 22:11 Patient is speaking in full sentences with no signs of distress noted. Critical care attestation.: If time is entered above; I have spent that time in minutes in the direct care of this critically ill patient, excluding procedure time. ED Disposition Clinical Impression: Dental caries, Gingivitis Disposition: - TO HOME OR SELFCARE Is pt being admited?: No Does the pt Need Aspirin: No Condition: Stable Instructions: Gingivitis (ED), Dental Caries (ED), Amoxicillin/Clavulanate Potassium (By mouth), Ibuprofen (By mouth) Additional Instructions: Follow-up with a dentist doctor in 3-5 days or if symptoms worsen and continue return to emergency room as soon as possible. Prescriptions: Amoxicillin/K Clav Tab [Augmentin 875 mg] 1 tab PO Q12HR #20 tab Chlorhexidine Mouthwash [Peridex] 15 ml MM BID 5 Days bottle Ibuprofen [Motrin] 600 mg PO Q8H PRN #30 tablet PRN Reason: Pain Referrals: PRIMARY CAREMD [Referring] - 3-5 Days BOUBACAR HOWARD MD [Staff Physician] - 3-5 Days [facility] [Outside] - 3-5 Days Forms: Work/School Release Form(ED)
== END 2018-03-05 23:00 | disposition home or self-care (01) ==
LOC: ED 19:41
DX: K02.9 Dental caries, unspecified (principal); K05.10 Chronic gingivitis, plaque induced
CPT/HCPCS: 96372; 99281; J1885

== ENCOUNTER 2018-03-19 06:19 | Emergency (ER) | payer MEDICAID ==
[2018-03-19 06:28] VITALS: BP 127/78
[2018-03-19] MEDS ORDERED: TORADOL IM ONE (07:33)
--- NOTE | 2018-03-19 07:35 | Emergency Department Report ---
HPI - General Chief Complaint: Dental/Oral Time Seen by Provider: 03/19/18 07:22 - HPI HPI: 37-year-old female presents to the emergency department with complaint of dental pain to the left upper jaw since last night. She says that she bit down and her crown came off. The pain is radiating into her ear and her neck. She says that she has been taking some ibuprofen and Tylenol for her symptoms without much relief. She denies any fever. She says that she does not have a dentist. She has a past medical history of HIV. She has a psychiatric history of PTSD, bipolar disorder, ADHD and anxiety. She drove herself in to be seen today. ED Past Medical Hx - Past Medical History Previous Medical History?: Yes Hx Hypertension: No Hx Heart Attack/AMI: No Hx Diabetes: No Hx Renal Disease: No Hx Psychiatric Treatment: Yes (PTSD, BIPOLAR, ADHD,anxiety) Hx Asthma: No Hx COPD: No Hx HIV: Yes - Surgical History Past Surgical History?: Yes Hx Coronary Stent: No Hx Pacemaker: No Additional Surgical History: D&C. breast implants. wisdom teeth removed - Social History Smoking Status: Never Smoker Substance Use Type: None - Medications Home Medications: Home Medications Medication Instructions Recorded Confirmed Last Taken Type QUEtiapine [SEROquel] 200 mg PO QHS MDD 400 09/05/16 11/28/17 10/13/16 History Efavirenz/Emtricitab/Tenofovir 600 mg PO QDAY 10/14/16 11/28/17 2 Weeks Ago History [Atripla Tablet] ~08/26/17 Dextroamphetamine/Amphetamine 20 mg PO BID 09/09/17 11/28/17 Unknown History [Adderall 20 mg Tablet] clonazePAM [Klonopin] 0.5 mg PO DAILY 09/09/17 11/28/17 Unknown History Aspirin [Aspirin BABY CHEW TAB] 81 mg PO QDAY tab.chew 09/12/17 11/28/17 Unknown Rx Carvedilol [Coreg] 3.125 mg PO BID 30 Days tablet 09/12/17 11/28/17 Unknown Rx Triamcinolone 0.1% [Kenalog 0.1% 1 applic TP TID tube 09/12/17 11/28/17 Unknown Rx CREAM] oxyCODONE /ACETAMINOPHEN [Percocet 1 tab PO Q6HR PRN #13 tablet 09/12/17 Unknown Rx 5/325] Sertraline [Zoloft] 150 mg PO QDAY 11/28/17 11/28/17 Unknown History Acetaminophen [Tylenol Arthritis] 650 mg PO Q6HR PRN #30 tablet.er 12/23/17 Unknown Rx Permethrin 5% [Acticin 5% CREAM] 1 applicatio TP ONCE #2 tube 12/23/17 Unknown Rx oxyCODONE [Roxicodone] 5 mg PO Q6HR PRN #15 tablet 12/23/17 Unknown Rx Ibuprofen [Motrin 600 MG tab] 600 mg PO Q8H PRN #12 tablet 01/03/18 Unknown Rx traMADol [Ultram] 50 mg PO Q6HR PRN #12 tablet 01/03/18 Unknown Rx Dicyclomine [Bentyl] 10 mg PO QID #20 capsule 01/20/18 Unknown Rx Promethazine [Phenergan TAB] 25 mg PO Q6HR PRN #14 tab 01/20/18 Unknown Rx Chlorhexidine Mouthwash [Peridex] 15 ml MM BID 5 Days bottle 03/05/18 Unknown Rx Ibuprofen [Motrin] 600 mg PO Q8H PRN #30 tablet 03/05/18 Unknown Rx Amoxicillin/K Clav Tab [Augmentin 1 tab PO Q12HR #14 tab 03/19/18 Unknown Rx 875MG TAB] ED Review of Systems ROS: Stated complaint: TOOTHACHE Other details as noted in HPI Comment: All other systems reviewed and negative Constitutional: denies: chills, fever Eyes: denies: eye pain, eye discharge, vision change ENT: ear pain, dental pain Respiratory: denies: cough, shortness of breath, wheezing Cardiovascular: denies: chest pain, palpitations Gastrointestinal: denies: abdominal pain, nausea, diarrhea Genitourinary: denies: urgency, dysuria, discharge Musculoskeletal: denies: back pain, joint swelling, arthralgia Skin: denies: rash, lesions Neurological: denies: headache, weakness, paresthesias Physical Exam - Physical Exam Vital Signs: Vital Signs 03/19/18 06:24 Temperature 98.2 F Pulse Rate 82 Respiratory 18 Rate Blood Pressure 127/78 O2 Sat by Pulse 100 Oximetry Physical Exam: GENERAL: The patient is well-developed well-nourished. HENT: Normocephalic. Atraumatic. Patient has moist mucous membranes. No drooling or trismus. The patient has a broken tooth that appears to be the left upper first molar where the patient says that she has discomfort. No palpable or visible abscess. Normal-appearing bilateral external ear canal and tympanic membranes. EYES: Extraocular motions are intact. Pupils equal reactive to light bilaterally. NECK: Supple. Trachea is midline. CHEST/LUNGS: Clear to auscultation. There is no respiratory distress noted. HEART/CARDIOVASCULAR: Regular. There is no tachycardia. There is no murmur. ABDOMEN: There is no abdominal distention. SKIN: Skin is warm and dry. NEURO: The patient is awake, alert, and oriented. The patient is cooperative. The patient has no focal neurologic deficits. The patient has normal speech. MUSCULOSKELETAL: There is no tenderness or deformity. There is no evidence of acute injury. ED Course Vital Signs 03/19/18 06:24 Temperature 98.2 F Pulse Rate 82 Respiratory 18 Rate Blood Pressure 127/78 O2 Sat by Pulse 100 Oximetry - Pulse Oximetry Interpretation Digit-Finger Initial Pulse Oximetry Readin O2 Sat by Pulse Oximetry: 100 Actions Taken: none Additional Comments: normal ED Medical Decision Making - Medical Decision Making Patient presents with pain from a broken tooth from a crown that came out. No drooling or trismus. Vital signs stable, being afebrile. No visible or palpable abscess at this time. She was placed on some antibiotics and has been encouraged to follow up with a dentist. - Differential Diagnosis dental caries, dental abscess, fractured tooth Critical Care Time: No Critical care attestation.: If time is entered above; I have spent that time in minutes in the direct care of this critically ill patient, excluding procedure time. ED Disposition Clinical Impression: Pain, dental, Left ear pain Disposition: DC-01 TO HOME OR SELFCARE Is pt being admited?: No Condition: Stable Instructions: Toothache (ED) Additional Instructions: Please take the antibiotics as prescribed. It is important that you follow up with a dentist as soon as possible, in the next few days, without fail. I have given you a referral for a local dental clinic, but you can see any dentist that you choose. Return to the emergency department with any signs or symptoms of infection, development of fever, worsening of your symptoms, or any acute distress. Prescriptions: Amoxicillin/K Clav Tab [Augmentin 875MG TAB] 1 tab PO Q12HR #14 tab Referrals: PRIMARY CARE, [Primary Care Provider] - 3-5 Days [facility] [Outside] - 3-5 Days Time of Disposition: 07:38
== END 2018-03-19 07:43 | disposition home or self-care (01) ==
LOC: ED 06:19
DX: K08.89 Other specified disorders of teeth and supporting structures (principal); H92.02 Otalgia, left ear
CPT/HCPCS: 96372; 99282; J1885

== ENCOUNTER 2018-06-15 23:59 | Emergency (ER) | payer MEDICAID ==
[2018-06-16 00:33] VITALS: BP 121/84
--- NOTE | 2018-06-16 01:06 | XRay Report ---
FINAL REPORT PROCEDURE: XR ANKLE 3+V RT TECHNIQUE: RIGHT ankle radiographs, AP, lateral, and oblique views. CPT 19454 HISTORY: twisted right ankle COMPARISON: No prior studies are available for comparison. FINDINGS: Fracture (s) and/or Dislocation(s): None. Alignment: Normal. Joint space(s): Normal. Soft tissues: Normal. Bone mineralization: Normal. Foreign bodies: None. Calcaneal spurring: None. IMPRESSION: Normal Examination.
== END 2018-06-16 03:25 | disposition left against medical advice (07) ==
LOC: ED 23:59
DX: M25.572 Pain in left ankle and joints of left foot (principal); Z53.21 Procedure and treatment not carried out due to patient leaving prior to being seen by health care provider

== ENCOUNTER 2018-06-24 23:11 | Emergency (ER) | payer MEDICAID ==
[2018-06-24 23:15] VITALS: BP 133/88
[2018-06-25] MEDS ORDERED: TYLENOL ONE (00:27)
[2018-06-25] MEDS ORDERED: ZOFRAN ODT ONE (00:28)
[2018-06-25] MEDS ORDERED: ZOFRAN ODT PO ONE ×2 (00:45→05:13)
[2018-06-25] MEDS ORDERED: TYLENOL PO ONE (00:45)
[2018-06-25 01:09] LABS: Basophils % (Auto) 0.5 % (0.0-1.8); Eosinophils # (Auto) 0.1 K/mm3 (0.0-0.4); Hematocrit 35.2 % (30.3-42.9); Hemoglobin 11.5 gm/dl (10.1-14.3); Lymphocytes # (Auto) 1.6 K/mm3 (1.2-5.4); Mean Corpuscular HGB Conc 33 % (30-34); Mean Corpuscular Volume 77 fl (79-97); Monocytes # (Auto) 0.5 K/mm3 (0.0-0.8); Monocytes % (Auto) 9.4 % (0.0-7.3); Platelet Count 372 K/mm3 (140-440); Red Blood Count 4.58 M/mm3 (3.65-5.03); Red Cell Distribution Width 19.3 % (13.2-15.2)
[2018-06-25 01:16] LABS: Mean Corpuscular Hemoglobin 25 pg (28-32)
[2018-06-25 02:15] LABS: Color,Urine Yellow (Yellow)
[2018-06-25 02:16] LABS: Alanine Aminotransferase 28 units/L (7-56); Albumin 4.2 g/dL (3.9-5); BUN/Creatinine Ratio 10; Blood Urea Nitrogen 6 mg/dL (7-17); Calcium 8.9 mg/dL (8.4-10.2); Hemolysis Index 0
[2018-06-25 02:16] LABS: Bilirubin,Urine NEG (Negative); Blood,Urine NEG (Negative); Mucus,Urine FEW /HPF; Protein,Urine <15 mg/dL mg/dL (Negative); Urobilinogen,Urine < 2.0 mg/dL (<2.0)
[2018-06-25] MEDS ORDERED: BENTYL PO ONE (04:46)
--- NOTE | 2018-06-25 05:24 | Emergency Department Report ---
Vomiting/Diarrhea - HPI Chief Complaint: Abdominal Pain Stated Complaint: SEVERE CRAMPING/ABDOMINAL Time Seen by Provider: 06/25/18 04:33 Duration: 1 Day Severity: severe Diarrhea Severity: Severe Pain Location: Suprapubic Symptoms: Yes Watery Diarrhea, Yes Able to Tolerate Fluids, Yes Recent Unusual Foods, No Fever, No Recent Untreated Water, No Recent use of Antibiotics, No Family w/ Similar Symptoms, No Contacts w/ Similar Symptoms, No Rash, No Hematuria, No Recent URI Symptoms Other History: 38-year-old -Polish female with a past medical history of HIV PTSD, bipolar ADHD and anxiety comes in for complaining of severe abdominal cramping with nausea and diarrhea. Patient denies any vaginal discharge or vaginal bleeding. Patient reports that she had eaten some seafood yesterday and feels that this is the caused her diarrhea and nausea. Patient denies any recent antibiotic use or recent travels untreated water. She denies any fever or chills. ED Review of Systems ROS: Stated complaint: SEVERE CRAMPING/ABDOMINAL Other details as noted in HPI ED Past Medical Hx - Past Medical History Previous Medical History?: Yes Hx Hypertension: No Hx Heart Attack/AMI: No Hx Diabetes: No Hx Renal Disease: No Hx Psychiatric Treatment: Yes (PTSD, BIPOLAR, ADHD,anxiety) Hx Asthma: No Hx COPD: No Hx HIV: Yes - Surgical History Past Surgical History?: Yes Hx Coronary Stent: No Hx Pacemaker: No Additional Surgical History: D&C. breast implants. wisdom teeth removed - Social History Smoking Status: Former Smoker Substance Use Type: Alcohol, Marijuana - Medications Home Medications: Home Medications Medication Instructions Recorded Confirmed Last Taken Type QUEtiapine [SEROquel] 200 mg PO QHS MDD 400 09/05/16 11/28/17 10/13/16 History Efavirenz/Emtricitab/Tenofovir 600 mg PO QDAY 10/14/16 11/28/17 2 Weeks Ago History [Atripla Tablet] ~08/26/17 Dextroamphetamine/Amphetamine 20 mg PO BID 09/09/17 11/28/17 Unknown History [Adderall 20 mg Tablet] clonazePAM [Klonopin] 0.5 mg PO DAILY 09/09/17 11/28/17 Unknown History Aspirin [Aspirin BABY CHEW TAB] 81 mg PO QDAY tab.chew 09/12/17 11/28/17 Unknown Rx Carvedilol [Coreg] 3.125 mg PO BID 30 Days tablet 09/12/17 11/28/17 Unknown Rx Triamcinolone 0.1% [Kenalog 0.1% 1 applic TP TID tube 09/12/17 11/28/17 Unknown Rx CREAM] oxyCODONE /ACETAMINOPHEN [Percocet 1 tab PO Q6HR PRN #13 tablet 09/12/17 Unknown Rx 5/325] Sertraline [Zoloft] 150 mg PO QDAY 11/28/17 11/28/17 Unknown History Acetaminophen [Tylenol Arthritis] 650 mg PO Q6HR PRN #30 tablet.er 12/23/17 Unknown Rx Permethrin 5% [Acticin 5% CREAM] 1 applicatio TP ONCE #2 tube 12/23/17 Unknown Rx oxyCODONE [Roxicodone] 5 mg PO Q6HR PRN #15 tablet 12/23/17 Unknown Rx Ibuprofen [Motrin 600 MG tab] 600 mg PO Q8H PRN #12 tablet 01/03/18 Unknown Rx traMADol [Ultram] 50 mg PO Q6HR PRN #12 tablet 01/03/18 Unknown Rx Promethazine [Phenergan TAB] 25 mg PO Q6HR PRN #14 tab 01/20/18 Unknown Rx Chlorhexidine Mouthwash [Peridex] 15 ml MM BID 5 Days bottle 03/05/18 Unknown Rx Ibuprofen [Motrin] 600 mg PO Q8H PRN #30 tablet 03/05/18 Unknown Rx Amoxicillin/K Clav Tab [Augmentin 1 tab PO Q12HR #14 tab 03/19/18 Unknown Rx 875MG TAB] Dicyclomine [Bentyl] 10 mg PO QID #10 capsule 06/25/18 Unknown Rx Ondansetron [Zofran Odt] 4 mg PO Q8HR #12 tab.rapdis 06/25/18 Unknown Rx Vomiting Diarrhea Exam - Exam General: Vital signs noted. No distress. Alert and acting appropriately. HEENT: No Pharyngeal Erythema, No Rhinorrhea Neck: No Adenopathy, No Rigidity Lungs: Yes Clear Lung Sounds Heart exam: Regular: Yes Abdomen: Tenderness: No, Peritoneal Signs: No, Distention: No, Hyperactive Bowel sounds: No Skin exam: Rash: No, Edema: No, Normal turgor: Yes Neurologic: Alert and oriented, no deficits. Musculoskeletal: Unremarkable. ED Course Vital Signs 06/24/18 06/25/18 23:14 00:56 Temperature 98.5 F Pulse Rate 104 H Respiratory 18 16 Rate Blood Pressure 133/88 O2 Sat by Pulse 100 Oximetry ED Medical Decision Making - Lab Data Result diagrams: 06/25/18 00:24 06/25/18 00:24 - Medical Decision Making Patient has been evaluated by this provider fast track. Patient has been given Zofran and ibuprofen in triage. Patient has been ordered Zofran 4 mg ODT and Bentyl antispasmodic. Discharge patient home since labs are stable. Discharge patient with Zofran and encouraged to drink plenty of fluids and advance her diet as tolerated. Critical care attestation.: If time is entered above; I have spent that time in minutes in the direct care of this critically ill patient, excluding procedure time. ED Disposition Disposition: DC-01 TO HOME OR SELFCARE Is pt being admited?: No Does the pt Need Aspirin: No Condition: Stable Instructions: Abdominal Pain (ED), Food Poisoning (ED) Additional Instructions: Please take Zofran for the nausea and and Bentyl for abdominal cramping. Please increase her water intake advance her diet as tolerated. Prescriptions: Dicyclomine [Bentyl] 10 mg PO QID #10 capsule Ondansetron [Zofran Odt] 4 mg PO Q8HR #12 tab.rip Referrals: PRIMARY CARE, [Primary Care Provider] - 3-5 Days Forms: Work/School Release Form(ED)
== END 2018-06-25 05:30 | disposition home or self-care (01) ==
LOC: ED 23:11
DX: R10.30 Lower abdominal pain, unspecified (principal); R19.7 Diarrhea, unspecified; R11.0 Nausea; F43.10 Post-traumatic stress disorder, unspecified; F31.9 Bipolar disorder, unspecified; F90.9 Attention-deficit hyperactivity disorder, unspecified type; F41.9 Anxiety disorder, unspecified; Z21 Asymptomatic human immunodeficiency virus [HIV] infection status; Z87.891 Personal history of nicotine dependence; Z79.82 Long term (current) use of aspirin
CPT/HCPCS: 36415; 80053; 81001; 84703; 85025; 99283; Q0162

== ENCOUNTER 2018-10-29 02:51 | Emergency (ER) | payer MEDICAID ==
[2018-10-29 04:01] LABS: Bilirubin,Urine NEG (Negative); Blood,Urine NEG (Negative); Color,Urine Yellow (Yellow); Mucus,Urine FEW /HPF; Protein,Urine <15 mg/dL mg/dL (Negative); Urobilinogen,Urine < 2.0 mg/dL (<2.0); WBC,Urine < 1.0 /HPF (0.0-6.0)
[2018-10-29 04:13] LABS: Benzodiazepines Screen,Urine PRESUMPTIVE NEGATIVE; Cannabinoid Screen,Urine PRESUMPTIVE NEGATIVE; Cocaine Screen,Urine PRESUMPTIVE NEGATIVE; Methadone Screen,Urine PRESUMPTIVE NEGATIVE; Opiate Screen,Urine PRESUMPTIVE NEGATIVE
[2018-10-29 04:20] LABS: Basophils % (Auto) 0.4 % (0.0-1.8); Eosinophils # (Auto) 0.1 K/mm3 (0.0-0.4); Hematocrit 34.4 % (30.3-42.9); Hemoglobin 11.3 gm/dl (10.1-14.3); Lymphocytes # (Auto) 1.6 K/mm3 (1.2-5.4); Lymphocytes % (Auto) 33.8 % (13.4-35.0); Mean Corpuscular HGB Conc 33 % (30-34); Mean Corpuscular Volume 80 fl (79-97); Monocytes # (Auto) 0.7 K/mm3 (0.0-0.8); Monocytes % (Auto) 14.4 % (0.0-7.3); Platelet Count 397 K/mm3 (140-440); Red Blood Count 4.31 M/mm3 (3.65-5.03); Red Cell Distribution Width 17.7 % (13.2-15.2)
[2018-10-29 04:27] LABS: Amphetamine Screen,Urine PRESUMPTIVE POSITIVE
[2018-10-29 04:44] LABS: BUN/Creatinine Ratio 14; Blood Urea Nitrogen 10 mg/dL (7-17); Calcium 9.5 mg/dL (8.4-10.2); Hemolysis Index 4
--- NOTE | 2018-10-29 08:50 | Emergency Department Report ---
ED General Adult HPI - General Chief complaint: Psych Stated complaint: SI Time Seen by Provider: 10/29/18 08:28 Source: patient, police Mode of arrival: Ambulatory Limitations: No Limitations - History of Present Illness Initial comments: Patient presents to the emergency Department escorted by local PD for homicidal ideations. Patient was at a hotel and was having issues with checking in and threatened to kill people. Patient states that she's had his homicidal thoughts for quite some time now. Patient denies any suicidal thoughts. Patient denies chest pain, headache, or shortness of breath. -: Gradual Severity scale (0 -10): 0 Improves with: none Worsens with: none Associated Symptoms: denies other symptoms Treatments Prior to Arrival: none - Related Data Home Medications Medication Instructions Recorded Confirmed Last Taken RX: Dextroamphetamine/Amphetamine 60 mg PO DAILY 09/09/17 09/30/18 09/29/18 [Adderall 20 mg Tablet] Previous Rx's Medication Instructions Recorded Last Taken Type Albuterol Sulfate [Ventolin HFA] 2 puff IH Q4H PRN #1 hfa.aer.ad 09/30/18 Unknown Rx Naproxen [Naprosyn] 375 mg PO BID #7 tablet 09/30/18 Unknown Rx RX: Azithromycin [Zithromax Z-MERT] 250 mg PO DAILY #6 tablet 09/30/18 Unknown Rx Allergies Allergy/AdvReac Type Severity Reaction Status Date / Time influenza virus vaccine, Allergy Swelling Verified 09/24/17 03:08 specific [Influenza Virus Vacc,Specific] Sulfa (Sulfonamide Allergy Swelling Verified 09/24/17 03:08 Antibiotics) sulfamethoxazole Allergy Swelling Verified 09/24/17 03:08 [From Bactrim] trimethoprim [From Bactrim] Allergy Swelling Verified 09/24/17 03:08 ED Review of Systems ROS: Stated complaint: SI Other details as noted in HPI Comment: All other systems reviewed and negative Constitutional: denies: chills, fever Eyes: denies: eye pain, eye discharge, vision change ENT: denies: ear pain, throat pain Respiratory: denies: cough, shortness of breath, wheezing Cardiovascular: denies: chest pain, palpitations Endocrine: no symptoms reported Gastrointestinal: denies: abdominal pain, nausea, diarrhea Genitourinary: denies: urgency, dysuria, discharge Musculoskeletal: denies: back pain, joint swelling, arthralgia Skin: denies: rash, lesions Neurological: denies: headache, weakness, paresthesias Psychiatric: auditory hallucinations, homicidal thoughts. denies: anxiety, depression, suicidal thoughts Hematological/Lymphatic: denies: easy bleeding, easy bruising ED Past Medical Hx - Past Medical History Previous Medical History?: Yes Hx Hypertension: No Hx Heart Attack/AMI: No Hx Diabetes: No Hx Renal Disease: No Hx Psychiatric Treatment: Yes (PTSD, BIPOLAR, ADHD,anxiety) Hx Asthma: No Hx COPD: No Hx HIV: Yes Additional medical history: ezcema - Surgical History Past Surgical History?: Yes Hx Coronary Stent: No Hx Pacemaker: No Additional Surgical History: D&C. breast implants. wisdom teeth removed. tubal ligation - Social History Smoking Status: Unknown if ever smoked - Medications Home Medications: Home Medications Medication Instructions Recorded Confirmed Last Taken Type RX: Dextroamphetamine/Amphetamine 60 mg PO DAILY 09/09/17 09/30/18 09/29/18 History [Adderall 20 mg Tablet] Albuterol Sulfate [Ventolin HFA] 2 puff IH Q4H PRN #1 hfa.aer.ad 09/30/18 Unknown Rx Naproxen [Naprosyn] 375 mg PO BID #7 tablet 09/30/18 Unknown Rx RX: Azithromycin [Zithromax Z-MERT] 250 mg PO DAILY #6 tablet 09/30/18 Unknown Rx ED Physical Exam - General Limitations: No Limitations General appearance: alert, in no apparent distress - Head Head exam: Present: atraumatic, normocephalic - Eye Eye exam: Present: normal appearance, PERRL, EOMI - ENT ENT exam: Present: mucous membranes moist - Neck Neck exam: Present: normal inspection - Respiratory Respiratory exam: Present: normal lung sounds bilaterally. Absent: respiratory distress, wheezes - Cardiovascular Cardiovascular Exam: Present: regular rate, normal rhythm. Absent: systolic murmur, diastolic murmur, rubs, gallop - GI/Abdominal GI/Abdominal exam: Present: soft, normal bowel sounds. Absent: distended, tenderness - Extremities Exam Extremities exam: Present: normal inspection - Back Exam Back exam: Present: normal inspection - Neurological Exam Neurological exam: Present: alert, oriented X3, CN II-XII intact. Absent: motor sensory deficit - Psychiatric Psychiatric exam: Present: anxious, homicidal ideation, other (pressured speech) - Skin Skin exam: Present: warm, dry, intact, normal color. Absent: rash ED Course Vital Signs 10/29/18 10/29/18 10/29/18 02:55 08:11 09:03 Temperature 97.5 F L 97.7 F Pulse Rate 92 H 82 75 Respiratory 18 18 16 Rate Blood Pressure 135/81 Blood Pressure 129/77 95/57 [Right] O2 Sat by Pulse 99 99 100 Oximetry 10/29/18 14:00 Temperature 98.7 F Pulse Rate 89 Respiratory 18 Rate Blood Pressure Blood Pressure 126/66 [Right] O2 Sat by Pulse 98 Oximetry ED Medical Decision Making - Lab Data Result diagrams: 10/29/18 04:01 10/29/18 04:01 Critical care attestation.: If time is entered above; I have spent that time in minutes in the direct care of this critically ill patient, excluding procedure time. ED Disposition Clinical Impression: Homicidal ideations Disposition: [id number]/TX-65 PSY HOSP/PSY UNIT Is pt being admited?: No Does the pt Need Aspirin: No Condition: Stable Referrals: PRIMARY CARE, [Primary Care Provider] - 3-5 Days
[2018-10-29 15:02] VITALS: BP 126/66
== END 2018-10-29 18:37 ==
LOC: EEVIPCON 02:51 → ED 02:51
DX: R45.850 Homicidal ideations (principal); F43.10 Post-traumatic stress disorder, unspecified; F31.9 Bipolar disorder, unspecified; F90.9 Attention-deficit hyperactivity disorder, unspecified type; Z98.51 Tubal ligation status
CPT/HCPCS: 36415; 80048; 80307; 81001; 85025; 99284; G0480; 80320

== ENCOUNTER 2019-06-04 21:50 | Emergency (ER) | payer MEDICAID ==
[2019-06-04 21:57] VITALS: BP 152/96
--- NOTE | 2019-06-04 21:59 | Emergency Department Report ---
Blank Doc - Documentation Documentation: This is a 39-year-old female that presents with dental pain and bilateral ear pain. Patient wont let me examine her ears. This initial assessment/diagnostic orders/clinical plan/treatment(s) is/are subject to change based on patient's health status, clinical progression and re- assessment by fellow clinical providers in the ED. Further treatment and workup at subsequent clinical providers discretion. Patient/guardians urged not to elope from the ED as their condition may be serious if not clinically assessed and managed. Initial orders include: 1- Patient sent to [facility] for further evaluation and treatment
--- NOTE | 2019-06-05 00:23 | Emergency Department Report ---
ED ENT HPI - General Chief complaint: Dental/Oral Stated complaint: EARACHE,DIZZINESS Time Seen by Provider: 06/04/19 21:56 Source: patient, EMS Mode of arrival: Ambulatory Limitations: No Limitations - History of Present Illness Initial comments: 39 year old -[place] female presents to the emergency room reporting she has a 2 day history of left ear pain that she has not taken anything for. MD complaint: tooth pain, ear pain Onset/Timin -: days(s) Location: L ear - Related Data Previous Rx's Medication Instructions Recorded Last Taken Type Azithromycin [Zithromax TAB] 250 mg PO DAILY tablet 01/04/19 Unknown Rx Dextroamphetamine/Amphetamine 60 mg PO DAILY 01/04/19 Unknown Rx [Adderall 20 mg Tablet] QUEtiapine [SEROquel] 200 mg PO QHS #14 tablet 01/04/19 Unknown Rx Allergies Allergy/AdvReac Type Severity Reaction Status Date / Time Sulfa (Sulfonamide Allergy Swelling Verified 09/24/17 03:08 Antibiotics) sulfamethoxazole Allergy Swelling Verified 09/24/17 03:08 [From Bactrim] trimethoprim [From Bactrim] Allergy Swelling Verified 09/24/17 03:08 ziprasidone [From Geodon] Allergy Unknown Verified 01/01/19 10:00 ED Dental HPI - General Chief complaint: Dental/Oral Stated complaint: EARACHE,DIZZINESS Time Seen by Provider: 06/04/19 21:56 Source: patient, EMS Mode of arrival: Ambulatory Limitations: No Limitations - Related Data Previous Rx's Medication Instructions Recorded Last Taken Type Azithromycin [Zithromax TAB] 250 mg PO DAILY tablet 01/04/19 Unknown Rx Dextroamphetamine/Amphetamine 60 mg PO DAILY 01/04/19 Unknown Rx [Adderall 20 mg Tablet] QUEtiapine [SEROquel] 200 mg PO QHS #14 tablet 01/04/19 Unknown Rx Allergies Allergy/AdvReac Type Severity Reaction Status Date / Time Sulfa (Sulfonamide Allergy Swelling Verified 09/24/17 03:08 Antibiotics) sulfamethoxazole Allergy Swelling Verified 09/24/17 03:08 [From Bactrim] trimethoprim [From Bactrim] Allergy Swelling Verified 09/24/17 03:08 ziprasidone [From Geodon] Allergy Unknown Verified 01/01/19 10:00 ED Review of Systems ROS: Stated complaint: EARACHE,DIZZINESS Other details as noted in HPI ED Past Medical Hx - Past Medical History Previous Medical History?: Yes Hx Hypertension: No Hx Heart Attack/AMI: No Hx Congestive Heart Failure: No Hx Diabetes: No Hx Renal Disease: No Hx Psychiatric Treatment: Yes (PTSD, BIPOLAR, ADHD,anxiety) Hx Asthma: No Hx COPD: No Hx HIV: Yes Additional medical history: ezcema - Surgical History Past Surgical History?: Yes Hx Coronary Stent: No Hx Pacemaker: No Additional Surgical History: D&C. breast implants. wisdom teeth removed. tubal ligation - Social History Smoking Status: Never Smoker Substance Use Type: None - Medications Home Medications: Home Medications Medication Instructions Recorded Confirmed Last Taken Type Azithromycin [Zithromax TAB] 250 mg PO DAILY tablet 01/04/19 Unknown Rx Dextroamphetamine/Amphetamine 60 mg PO DAILY 01/04/19 Unknown Rx [Adderall 20 mg Tablet] QUEtiapine [SEROquel] 200 mg PO QHS #14 tablet 01/04/19 Unknown Rx ED Physical Exam - General Limitations: No Limitations, Other (patient refuses to let me evaluate her mouth) General appearance: alert, in no apparent distress - Head Head exam: Present: atraumatic, normocephalic - Eye Eye exam: Present: normal appearance - ENT ENT exam: Present: TM's normal bilaterally, normal external ear exam - Neurological Exam Neurological exam: Present: alert, oriented X3 - Psychiatric Psychiatric exam: Present: normal affect, normal mood - Skin Skin exam: Present: warm, dry, intact, normal color. Absent: rash ED Course Vital Signs 06/04/19 06/04/19 21:56 21:57 Temperature 98.9 F Pulse Rate 109 H 109 H Respiratory 16 Rate Blood Pressure 152/96 O2 Sat by Pulse 98 98 Oximetry Critical care attestation.: If time is entered above; I have spent that time in minutes in the direct care of this critically ill patient, excluding procedure time. ED Disposition Disposition: DC-07 LEFT AGAINST MED ADVICE Is pt being admited?: No Does the pt Need Aspirin: No Condition: Stable Referrals: PROSPER PRECIADO MD [Primary Care Provider] - 3-5 Days
== END 2019-06-05 01:34 | disposition left against medical advice (07) ==
LOC: ED 21:50
DX: H92.02 Otalgia, left ear (principal); K08.89 Other specified disorders of teeth and supporting structures; F31.9 Bipolar disorder, unspecified; F41.9 Anxiety disorder, unspecified; F43.10 Post-traumatic stress disorder, unspecified; Z21 Asymptomatic human immunodeficiency virus [HIV] infection status; Z98.51 Tubal ligation status; Z88.2 Allergy status to sulfonamides; Z79.899 Other long term (current) drug therapy
CPT/HCPCS: 99283

== ENCOUNTER 2019-06-05 01:40 | Emergency (ER) | payer MEDICAID ==
[2019-06-05 01:45] VITALS: BP 160/93
--- NOTE | 2019-06-05 04:21 | Emergency Department Report ---
ED ENT HPI - General Chief complaint: Dental/Oral Stated complaint: EARACHE,TOOTHACE,RINGING IN EAR Time Seen by Provider: 06/05/19 04:16 Source: patient Mode of arrival: Ambulatory Limitations: No Limitations - History of Present Illness Initial comments: 39 yo F patient stated that she has severe tooth pain that began last night. It has evolved to ear pain and ringing in her L ear. MD complaint: tooth pain, ear pain -: Last night Location: L ear Severity: severe Severity scale (0 -10): 10 Quality: sharp Consistency: constant Worsens with: none Context- Dental: history of dental caries Associated Symptoms: tinnitus - Related Data Previous Rx's Medication Instructions Recorded Last Taken Type Azithromycin [Zithromax TAB] 250 mg PO DAILY tablet 01/04/19 Unknown Rx Dextroamphetamine/Amphetamine 60 mg PO DAILY 01/04/19 Unknown Rx [Adderall 20 mg Tablet] QUEtiapine [SEROquel] 200 mg PO QHS #14 tablet 01/04/19 Unknown Rx Amoxicillin [Trimox CAP] 500 mg PO Q8H 10 Days #20 capsule 06/05/19 Unknown Rx Ibuprofen [Motrin 600 MG tab] 600 mg PO Q8H PRN #15 tablet 06/05/19 Unknown Rx Allergies Allergy/AdvReac Type Severity Reaction Status Date / Time Sulfa (Sulfonamide Allergy Swelling Verified 09/24/17 03:08 Antibiotics) sulfamethoxazole Allergy Swelling Verified 09/24/17 03:08 [From Bactrim] trimethoprim [From Bactrim] Allergy Swelling Verified 09/24/17 03:08 ziprasidone [From Geodon] Allergy Unknown Verified 01/01/19 10:00 ED Dental HPI - General Chief complaint: Dental/Oral Stated complaint: EARACHE,TOOTHACE,RINGING IN EAR Time Seen by Provider: 06/05/19 04:16 Source: patient Mode of arrival: Ambulatory Limitations: No Limitations - Related Data Previous Rx's Medication Instructions Recorded Last Taken Type Azithromycin [Zithromax TAB] 250 mg PO DAILY tablet 01/04/19 Unknown Rx Dextroamphetamine/Amphetamine 60 mg PO DAILY 01/04/19 Unknown Rx [Adderall 20 mg Tablet] QUEtiapine [SEROquel] 200 mg PO QHS #14 tablet 01/04/19 Unknown Rx Amoxicillin [Trimox CAP] 500 mg PO Q8H 10 Days #20 capsule 06/05/19 Unknown Rx Ibuprofen [Motrin 600 MG tab] 600 mg PO Q8H PRN #15 tablet 06/05/19 Unknown Rx Allergies Allergy/AdvReac Type Severity Reaction Status Date / Time Sulfa (Sulfonamide Allergy Swelling Verified 09/24/17 03:08 Antibiotics) sulfamethoxazole Allergy Swelling Verified 09/24/17 03:08 [From Bactrim] trimethoprim [From Bactrim] Allergy Swelling Verified 09/24/17 03:08 ziprasidone [From Geodon] Allergy Unknown Verified 01/01/19 10:00 ED Review of Systems ROS: Stated complaint: EARACHE,TOOTHACE,RINGING IN EAR Other details as noted in HPI Comment: All other systems reviewed and negative ENT: as per HPI, dental pain ED Past Medical Hx - Past Medical History Previous Medical History?: Yes Hx Hypertension: No Hx Heart Attack/AMI: No Hx Congestive Heart Failure: No Hx Diabetes: No Hx Renal Disease: No Hx Psychiatric Treatment: Yes (PTSD, BIPOLAR, ADHD,anxiety) Hx Asthma: No Hx COPD: No Hx HIV: Yes Additional medical history: ezcema - Surgical History Past Surgical History?: Yes Hx Coronary Stent: No Hx Pacemaker: No Additional Surgical History: D&C. breast implants. wisdom teeth removed. tubal ligation - Social History Smoking Status: Current Every Day Smoker Substance Use Type: None - Medications Home Medications: Home Medications Medication Instructions Recorded Confirmed Last Taken Type Azithromycin [Zithromax TAB] 250 mg PO DAILY tablet 01/04/19 Unknown Rx Dextroamphetamine/Amphetamine 60 mg PO DAILY 01/04/19 Unknown Rx [Adderall 20 mg Tablet] QUEtiapine [SEROquel] 200 mg PO QHS #14 tablet 01/04/19 Unknown Rx Amoxicillin [Trimox CAP] 500 mg PO Q8H 10 Days #20 capsule 06/05/19 Unknown Rx Ibuprofen [Motrin 600 MG tab] 600 mg PO Q8H PRN #15 tablet 06/05/19 Unknown Rx ED Physical Exam - General Limitations: No Limitations - Expanded ENT Exam Expanded Ear exam: Present: normal external inspection Mouth exam: Present: normal external inspection, tongue normal Teeth exam: Present: dental caries, gingival enlargement, other (Tooth number 15 has brown discoloration and erythema and swelling of the gingiva around it) 1 - Dental Tenderness Throat exam: Positive: normal inspection ED Course Vital Signs 06/05/19 06/05/19 01:44 01:45 Temperature 97.8 F Pulse Rate 87 Respiratory 18 Rate Blood Pressure 160/93 O2 Sat by Pulse 96 Oximetry ED Medical Decision Making - Medical Decision Making 39 yo F patient stated that she has severe tooth pain that began last night. It has evolved to ear pain and ringing in her L ear. Pt was instructed to take Ibuprofen 600 TID PRN, take Amoxicillin 500 mg BID x 10 days and f/u with Dentist Critical care attestation.: If time is entered above; I have spent that time in minutes in the direct care of this critically ill patient, excluding procedure time. ED Disposition Clinical Impression: Tooth disorder Disposition: DC-01 TO HOME OR SELFCARE Is pt being admited?: No Does the pt Need Aspirin: No Condition: Stable Instructions: Toothache (ED) Additional Instructions: Take Amoxicillin and Ibuprofen as prescribed. F/U with Dentist listed below. Prescriptions: Ibuprofen [Motrin 600 MG tab] 600 mg PO Q8H PRN #15 tablet PRN Reason: Pain Amoxicillin [Trimox CAP] 500 mg PO Q8H 10 Days #20 capsule Referrals: PROSPER PRECIADO MD [Primary Care Provider] - 3-5 Days [facility] [Outside] - 3-5 Days
== END 2019-06-05 04:50 | disposition home or self-care (01) ==
LOC: ED 01:40
DX: K08.9 Disorder of teeth and supporting structures, unspecified (principal); H93.12 Tinnitus, left ear; F17.200 Nicotine dependence, unspecified, uncomplicated; F43.10 Post-traumatic stress disorder, unspecified; F41.9 Anxiety disorder, unspecified; F31.9 Bipolar disorder, unspecified; Z21 Asymptomatic human immunodeficiency virus [HIV] infection status; Z98.51 Tubal ligation status; Z98.890 Other specified postprocedural states; Z88.2 Allergy status to sulfonamides; Z79.899 Other long term (current) drug therapy
CPT/HCPCS: 99282

== ENCOUNTER 2019-07-29 09:27 | Emergency (ER) | payer MEDICAID ==
[2019-07-29 09:33] VITALS: BP 126/78
[2019-07-29 09:57] LABS: Basophils % (Auto) 0.6 % (0.0-1.8); Eosinophils # (Auto) 0.2 K/mm3 (0.0-0.4); Eosinophils % (Auto) 3.4 % (0.0-4.3); Lymphocytes # (Auto) 1.8 K/mm3 (1.2-5.4); Lymphocytes % (Auto) 32.8 % (13.4-35.0); Mean Corpuscular HGB Conc 33 % (30-34); Mean Corpuscular Volume 81 fl (79-97); Monocytes # (Auto) 0.6 K/mm3 (0.0-0.8); Monocytes % (Auto) 10.8 % (0.0-7.3); Platelet Count 337 K/mm3 (140-440); Red Blood Count 4.43 M/mm3 (3.65-5.03); Red Cell Distribution Width 15.3 % (13.2-15.2)
[2019-07-29 10:12] LABS: Alanine Aminotransferase 23 units/L (7-56); BUN/Creatinine Ratio 18; Blood Urea Nitrogen 14 mg/dL (7-17); Calcium 10.1 mg/dL (8.4-10.2); Hemolysis Index 15
[2019-07-29] MEDS ORDERED: ZOFRAN IM ONE (10:23)
--- NOTE | 2019-07-29 10:23 | Emergency Department Report ---
ED N/V/D HPI - General Chief complaint: Nausea/Vomiting/Diarrhea Stated complaint: VOMITING/DIARRHEA Time Seen by Provider: 07/29/19 10:17 Source: patient Mode of arrival: Ambulatory Limitations: No Limitations - History of Present Illness Initial comments: Patient is 39 years old female with history of HIV. Patient presented to the ER complaining of nausea, vomiting and watery diarrhea for the last 2 days. Patient stated that she ate a row oyster and since then she started having the nausea and vomiting and diarrhea. Patient denied any abdominal pain, fever, chills. Patient also denied any urinary symptoms. MD complaint: nausea, vomiting, diarrhea -: Last night Description of Vomiting: food contents, watery Description of Diarrhea: water Associated Abdominal Pain: No - Related Data Previous Rx's Medication Instructions Recorded Last Taken Type Azithromycin [Zithromax TAB] 250 mg PO DAILY tablet 01/04/19 Unknown Rx Dextroamphetamine/Amphetamine 60 mg PO DAILY 01/04/19 Unknown Rx [Adderall 20 mg Tablet] QUEtiapine [SEROquel] 200 mg PO QHS #14 tablet 01/04/19 Unknown Rx Amoxicillin [Trimox CAP] 500 mg PO Q8H 10 Days #20 capsule 06/05/19 Unknown Rx Ibuprofen [Motrin 600 MG tab] 600 mg PO Q8H PRN #15 tablet 06/05/19 Unknown Rx Allergies Allergy/AdvReac Type Severity Reaction Status Date / Time Sulfa (Sulfonamide Allergy Swelling Verified 09/24/17 03:08 Antibiotics) sulfamethoxazole Allergy Swelling Verified 09/24/17 03:08 [From Bactrim] trimethoprim [From Bactrim] Allergy Swelling Verified 09/24/17 03:08 ziprasidone [From Geodon] Allergy Unknown Verified 01/01/19 10:00 ED Review of Systems ROS: Stated complaint: VOMITING/DIARRHEA Other details as noted in HPI Comment: All other systems reviewed and negative Constitutional: denies: chills, fever Cardiovascular: denies: chest pain Gastrointestinal: nausea, vomiting, diarrhea. denies: abdominal pain, constipation, hematemesis, melena, hematochezia Neurological: denies: headache, weakness ED Past Medical Hx - Past Medical History Previous Medical History?: Yes Hx Hypertension: No Hx Heart Attack/AMI: No Hx Congestive Heart Failure: No Hx Diabetes: No Hx Renal Disease: No Hx Psychiatric Treatment: Yes (PTSD, BIPOLAR, ADHD,anxiety) Hx Asthma: No Hx COPD: No Hx HIV: Yes Additional medical history: ezcema - Surgical History Past Surgical History?: Yes Hx Coronary Stent: No Hx Pacemaker: No Additional Surgical History: D&C. breast implants. wisdom teeth removed. tubal ligation - Social History Smoking Status: Never Smoker Substance Use Type: None - Medications Home Medications: Home Medications Medication Instructions Recorded Confirmed Last Taken Type Azithromycin [Zithromax TAB] 250 mg PO DAILY tablet 01/04/19 Unknown Rx Dextroamphetamine/Amphetamine 60 mg PO DAILY 01/04/19 Unknown Rx [Adderall 20 mg Tablet] QUEtiapine [SEROquel] 200 mg PO QHS #14 tablet 01/04/19 Unknown Rx Amoxicillin [Trimox CAP] 500 mg PO Q8H 10 Days #20 capsule 06/05/19 Unknown Rx Ibuprofen [Motrin 600 MG tab] 600 mg PO Q8H PRN #15 tablet 06/05/19 Unknown Rx ED Physical Exam - General Limitations: No Limitations General appearance: alert, in no apparent distress - Head Head exam: Present: atraumatic, normocephalic, normal inspection - Eye Eye exam: Present: normal appearance, PERRL - ENT ENT exam: Present: normal exam, normal orophraynx, mucous membranes moist - Neck Neck exam: Present: normal inspection, full ROM. Absent: tenderness, meningismu s, lymphadenopathy, thyromegaly - Respiratory Respiratory exam: Present: normal lung sounds bilaterally - Cardiovascular Cardiovascular Exam: Present: regular rate, normal rhythm, normal heart sounds - GI/Abdominal GI/Abdominal exam: Present: soft, normal bowel sounds. Absent: distended, tenderness, guarding, rebound, rigid, organomegaly, mass, bruit, pulsatile mass, hernia - Extremities Exam Extremities exam: Present: normal inspection, full ROM, normal capillary refill. Absent: tenderness, pedal edema, joint swelling, calf tenderness - Back Exam Back exam: Present: normal inspection, full ROM. Absent: CVA tenderness (R), CVA tenderness (L) - Neurological Exam Neurological exam: Present: alert, oriented X3 - Psychiatric Psychiatric exam: Present: normal mood - Skin Skin exam: Present: warm, intact, normal color ED Course Vital Signs 07/29/19 09:32 Temperature 97.8 F Pulse Rate 64 Respiratory 16 Rate Blood Pressure 126/78 O2 Sat by Pulse 100 Oximetry ED Medical Decision Making - Lab Data Result diagrams: 07/29/19 09:38 07/29/19 09:38 Critical care attestation.: If time is entered above; I have spent that time in minutes in the direct care of this critically ill patient, excluding procedure time. ED Disposition Clinical Impression: HIV (human immunodeficiency virus infection), Gastroenteritis Disposition: DC-01 TO HOME OR SELFCARE Is pt being admited?: No Condition: Stable Instructions: Acute Nausea and Vomiting (ED), Gastroenteritis (ED) Referrals: [facility] [Provider Group] - 3-5 Days
== END 2019-07-29 11:04 | disposition home or self-care (01) ==
LOC: ED 09:27
DX: K52.9 Noninfective gastroenteritis and colitis, unspecified (principal); F31.9 Bipolar disorder, unspecified; F90.9 Attention-deficit hyperactivity disorder, unspecified type; F43.10 Post-traumatic stress disorder, unspecified; Z98.51 Tubal ligation status; Z79.899 Other long term (current) drug therapy; Z88.2 Allergy status to sulfonamides
CPT/HCPCS: 36415; 80053; 85025; 96372; 99283; J2405

== ENCOUNTER 2019-08-25 17:03 | Emergency (ER) | payer MEDICAID ==
--- NOTE | 2019-08-25 18:52 | Event Note ---
ED Screening Note Date of service: 08/25/19 Time: 18:50 ED Screening Note: Pt complains of right eye pain x 2 days +photophobia +contact wearer This initial assessment/diagnostic orders/clinical plan/treatment(s) is/are subject to change based on patients health status, clinical progression and re- assessment by fellow clinical providers in the ED. Further treatment and workup at subsequent clinical providers discretion. Patient/guardian urged not to elope from the ED as their condition may be serious if not clinically assessed and managed. Initial orders include:
[2019-08-25] MEDS ORDERED: traMADol 50 MG TAB PO ONE (21:42)
[2019-08-25] MEDS ORDERED: IBUPROFEN 800 MG TAB PO ONE (21:42)
--- NOTE | 2019-08-25 21:47 | Emergency Department Report ---
HPI - General Chief Complaint: Eye Problems Time Seen by Provider: 08/25/19 18:49 - HPI HPI: Room 30 The pt is a 39 y/o F p/w a cc of right eye pain/d/c. The pt states for 2 days shes had itching, pain and drainage from her right eye. Pt denies preceeding trauma. The pt states she usually notices the d/c in the AM ED Past Medical Hx - Past Medical History Previous Medical History?: Yes Hx Psychiatric Treatment: Yes (PTSD, BIPOLAR, ADHD,anxiety) Hx HIV: Yes (Last CD4 800's 07/19/2019) Additional medical history: ezcema - Surgical History Past Surgical History?: Yes Additional Surgical History: D&C. breast implants. wisdom teeth removed. tub al ligation - Family History Family history: no significant - Social History Smoking Status: Never Smoker Substance Use Type: None - Medications Home Medications: Home Medications Medication Instructions Recorded Confirmed Last Taken Type Azithromycin [Zithromax TAB] 250 mg PO DAILY tablet 01/04/19 Unknown Rx Dextroamphetamine/Amphetamine 60 mg PO DAILY 01/04/19 Unknown Rx [Adderall 20 mg Tablet] QUEtiapine [SEROquel] 200 mg PO QHS #14 tablet 01/04/19 Unknown Rx Amoxicillin [Trimox CAP] 500 mg PO Q8H 10 Days #20 capsule 06/05/19 Unknown Rx Ibuprofen [Motrin 600 MG tab] 600 mg PO Q8H PRN #15 tablet 06/05/19 Unknown Rx Ondansetron [Zofran Odt] 4 mg PO Q8HR PRN #14 tab.rapdis 07/29/19 Unknown Rx Gentamicin 0.3% Ophth Soln 2 drops OP Q4H #5 ml 08/25/19 Unknown Rx Ketorolac Tromethamin 0.4%(Nf) 1 drop OD QID PRN #5 ml 08/25/19 Unknown Rx [Acular Ls 0.4% Ophth Elida] ED Review of Systems ROS: Stated complaint: R EYE PAIN/IRRITATION Other details as noted in HPI Constitutional: no symptoms reported Eyes: eye pain, eye discharge ENT: denies: throat pain Respiratory: no symptoms reported Cardiovascular: denies: chest pain Endocrine: no symptoms reported Gastrointestinal: denies: abdominal pain Genitourinary: denies: dysuria Musculoskeletal: denies: back pain Neurological: denies: headache Physical Exam - Physical Exam Vital Signs: Vital Signs 08/25/19 18:53 Temperature 98.0 F Pulse Rate 94 H Respiratory 18 Rate Blood Pressure 133/86 [Right] O2 Sat by Pulse 99 Oximetry Physical Exam: GEN: WD WN F sitting in chair in NAD HEENT: NCAT, EOMI. Left sclera injected. Ho hyphema or hypopyon seen. No drainage seen NECK:Trachea midline, no stridor Pulm: no resp distress Neuro: GCS 15 SKIN: no diaphoresis MS: no evidence of acute injury ED Course Vital Signs 08/25/19 18:53 Temperature 98.0 F Pulse Rate 94 H Respiratory 18 Rate Blood Pressure 133/86 [Right] O2 Sat by Pulse 99 Oximetry ED Medical Decision Making - Differential Diagnosis conjunctivitis Critical care attestation.: If time is entered above; I have spent that time in minutes in the direct care of this critically ill patient, excluding procedure time. ED Disposition Clinical Impression: Acute conjunctivitis of right eye Disposition: DC-01 TO HOME OR SELFCARE Is pt being admited?: No Does the pt Need Aspirin: No Condition: Stable Prescriptions: Ketorolac Tromethamin 0.4%(Nf) [Acular Ls 0.4% Ophth Elida] 1 drop OD QID PRN #5 ml PRN Reason: Pain , Severe (7-10) Gentamicin 0.3% Ophth Soln 2 drops OP Q4H #5 ml Referrals: PRIMARY CARE, [Primary Care Provider] - 3-5 Days LUIS MANUEL TRAORE MD [Staff Physician] - 2-3 Days (Dr Traore is an Ophthalm ologist. Please follow up with him for further evaluation) Time of Disposition: 21:50
[2019-08-25 22:08] VITALS: BP 124/80
== END 2019-08-25 22:07 | disposition home or self-care (01) ==
LOC: ED 17:03
DX: H10.31 Unspecified acute conjunctivitis, right eye (principal); F31.9 Bipolar disorder, unspecified; F43.10 Post-traumatic stress disorder, unspecified; F41.9 Anxiety disorder, unspecified; Z21 Asymptomatic human immunodeficiency virus [HIV] infection status; Z98.51 Tubal ligation status; Z88.2 Allergy status to sulfonamides; Z79.899 Other long term (current) drug therapy
CPT/HCPCS: 99282

== ENCOUNTER 2019-10-23 22:51 | Inpatient (IN) | payer MEDICAID ==
[2019-10-24] MEDS ORDERED: LORazepam 2 MG/ML VIAL IM ONE (04:35)
[2019-10-24] MEDS ORDERED: LIDOCAINE VISCOUS 2% 15 ML ORAL LIQD PO ONE (04:35)
[2019-10-24] MEDS ORDERED: SODIUM CHLORIDE 0.9% 1000 ML 1,000 ML IV ONE ×2 (04:36→06:50)
[2019-10-24] MEDS ORDERED: LORazepam 2 MG/ML VIAL IV ONE (04:36)
--- NOTE | 2019-10-24 05:17 | XRay Report ---
CHEST 2 VIEWS, 10/24/2019 4:50 AM INDICATION: Cough COMPARISON: Chest radiograph, 08/30/2017 FINDINGS: Support devices: None Heart: The heart appears normal in size. Lungs/pleura: Low lung volumes are noted bilaterally without evidence of focal airspace disease or si gnificant pleural effusion. Additional findings: None IMPRESSION: 1. No evidence of acute cardiopulmonary process. Signer Name: Missy Egan MD Signed: 10/24/2019 5:13 AM Workstation Name: [id number]
[2019-10-24 05:21] LABS: Basophils % (Auto) 0.6 % (0.0-1.8); Eosinophils % (Auto) 0.3 % (0.0-4.3); Hematocrit 42.3 % (30.3-42.9); Hemoglobin 13.8 gm/dl (10.1-14.3); Lymphocytes % (Auto) 23.1 % (13.4-35.0); Mean Corpuscular HGB Conc 33 % (30-34); Mean Corpuscular Volume 80 fl (79-97); Monocytes % (Auto) 11.7 % (0.0-7.3); Platelet Count 508 K/mm3 (140-440); Red Blood Count 5.29 M/mm3 (3.65-5.03); Red Cell Distribution Width 16.3 % (13.2-15.2)
[2019-10-24 05:48] LABS: Albumin 5.2 g/dL (3.9-5); Calcium 10.8 mg/dL (8.4-10.2)
[2019-10-24] MEDS ORDERED: diphenhydrAMINE 50 MG/ML VIAL ONE (06:07)
[2019-10-24] MEDS ORDERED: HALOPERIDOL LACTATE 5 MG/1 ML INJ ONE (06:07)
[2019-10-24] MEDS ORDERED: HALOPERIDOL LACTATE 5 MG/1 ML INJ IM ONE (06:23)
[2019-10-24] MEDS ORDERED: diphenhydrAMINE 50 MG/ML VIAL IM ONE (06:23)
--- NOTE | 2019-10-24 06:42 | Emergency Department Report ---
ED General Adult HPI - General Chief complaint: Dyspnea/Respdistress Stated complaint: DANIEL Time Seen by Provider: 10/24/19 06:27 Source: EMS (EMS records not available at time of chart dictation.), RN notes reviewed, old records reviewed Mode of arrival: Stretcher Limitations: Altered Mental Status, Other (patient appears to be psychotic, delirious and altered) - History of Present Illness Initial comments: This is a 39-year-old female. Her past medical history includes HIV, AIDS, hypertension, GERD, polysubstance dependence, bipolar disorder, adult ADHD, on amphetamine therapy, admitted to this hospital in the past for rhabdomyolysis, in the past has been documented to be minimally cooperative with examination and interview. Today, the patient is brought to the emergency room by emergency medical services for possible respiratory illness. The patient was initially triaged to fast track, where she was noted by staff to be making nonsensical sounds, to have clear lung sounds, and to have bizarre behavior. At one point in time, she was noted by staff to be consuming cardboard out of her purse. The patient required medication with multiple agents, including Benadryl, Haldol, and benzodiazepines. She was then up triaged to the main side the emergency room for further care. Upon my initial evaluation, the patient is awake, making nonsensical syllables, and does not follow commands or instructions. She is afebrile. She is moving 4 extremities. The patient is found to have acute renal failure with evidence of rhabdomyolysis and metabolic acidosis. She is placed on a 1013 for psychosis, and inability to care for self. She required medication with additional agents, including Geodon. At the moment, she is not cooperative, sleepy but arousable, moving 4 extremities and protecting her airway. She requires administration of ketamine intramuscular to allow for acquisition of emergent diagnostics, including CT scan of the brain, CT scan of the chest, and spinal tap to exclude meningitis. However, at this point in time, suspect decompensated psychosis, dehydration, possible urinary tract infection, probable toxic encephalopathy, likely secondary to amphetamines. -: unknown Radiation: other Quality: other Consistency: other Improves with: other Worsens with: other Associated Symptoms: other Treatments Prior to Arrival: other - Related Data Previous Rx's Medication Instructions Recorded Last Taken Type Azithromycin [Zithromax TAB] 250 mg PO DAILY tablet 01/04/19 Unknown Rx Dextroamphetamine/Amphetamine 60 mg PO DAILY 01/04/19 Unknown Rx [Adderall 20 mg Tablet] QUEtiapine [SEROquel] 200 mg PO QHS #14 tablet 01/04/19 Unknown Rx Amoxicillin [Trimox CAP] 500 mg PO Q8H 10 Days #20 capsule 06/05/19 Unknown Rx Ibuprofen [Motrin 600 MG tab] 600 mg PO Q8H PRN #15 tablet 06/05/19 Unknown Rx Ondansetron [Zofran Odt] 4 mg PO Q8HR PRN #14 tab.rapdis 07/29/19 Unknown Rx Gentamicin 0.3% Ophth Soln 2 drops OP Q4H #5 ml 08/25/19 Unknown Rx Ketorolac Tromethamin 0.4%(Nf) 1 drop OD QID PRN #5 ml 08/25/19 Unknown Rx [Acular Ls 0.4% Ophth Elida] Allergies Allergy/AdvReac Type Severity Reaction Status Date / Time Sulfa (Sulfonamide Allergy Swelling Verified 08/25/19 17:31 Antibiotics) sulfamethoxazole Allergy Swelling Verified 08/25/19 17:31 [From Bactrim] trimethoprim [From Bactrim] Allergy Swelling Verified 08/25/19 17:31 ziprasidone [From Geodon] Allergy Unknown Verified 08/25/19 17:31 ED Review of Systems ROS: Stated complaint: DANIEL Other details as noted in HPI Comment: Unobtainable due to pts medical conditions ED Past Medical Hx - Past Medical History Hx Hypertension: No Hx Psychiatric Treatment: Yes (PTSD, BIPOLAR, ADHD,anxiety) Hx HIV: Yes (Last CD4 800's 07/19/2019) Additional medical history: ezcema - Surgical History Hx Coronary Stent: No Additional Surgical History: D&C. breast implants. wisdom teeth removed. tubal ligation - Social History Smoking Status: Never Smoker Substance Use Type: None - Medications Home Medications: Home Medications Medication Instructions Recorded Confirmed Last Taken Type Azithromycin [Zithromax TAB] 250 mg PO DAILY tablet 01/04/19 Unknown Rx Dextroamphetamine/Amphetamine 60 mg PO DAILY 01/04/19 Unknown Rx [Adderall 20 mg Tablet] QUEtiapine [SEROquel] 200 mg PO QHS #14 tablet 01/04/19 Unknown Rx Amoxicillin [Trimox CAP] 500 mg PO Q8H 10 Days #20 capsule 06/05/19 Unknown Rx Ibuprofen [Motrin 600 MG tab] 600 mg PO Q8H PRN #15 tablet 06/05/19 Unknown Rx Ondansetron [Zofran Odt] 4 mg PO Q8HR PRN #14 tab.rapdis 07/29/19 Unknown Rx Gentamicin 0.3% Ophth Soln 2 drops OP Q4H #5 ml 08/25/19 Unknown Rx Ketorolac Tromethamin 0.4%(Nf) 1 drop OD QID PRN #5 ml 08/25/19 Unknown Rx [Acular Ls 0.4% Ophth Elida] ED Physical Exam - General Limitations: Altered Mental Status General appearance: anxious, other (patient initially awake. Patient not cooperative. Patient making nonsensical sounds.) - Head Head exam: Present: atraumatic, normocephalic - Eye Eye exam: Present: normal appearance, PERRL - ENT ENT exam: Present: normal exam, mucous membranes moist, normal external ear exam - Neck Neck exam: Present: normal inspection, full ROM. Absent: tenderness, meningismus - Respiratory Respiratory exam: Present: normal lung sounds bilaterally. Absent: respiratory distress - Cardiovascular Cardiovascular Exam: Present: regular rate, normal rhythm, normal heart sounds. Absent: tachycardia, irregular rhythm, systolic murmur, diastolic murmur, rubs, gallop - GI/Abdominal GI/Abdominal exam: Present: soft. Absent: distended, tenderness, guarding, rebound, rigid, pulsatile mass - Extremities Exam Extremities exam: Present: normal inspection, full ROM, other (2+ pulses noted in the bilateral upper and lower extremities. The pelvis is stable. There is no long bony tenderness. The muscular compartments are soft. There is no redness, pus, streaking or erythema.). Absent: calf tenderness - Back Exam Back exam: Present: normal inspection. Absent: tenderness, CVA tenderness (R), CVA tenderness (L), paraspinal tenderness, vertebral tenderness - Neurological Exam Neurological exam: Present: altered, other (the patient is moving 4 extremities spontaneously. There is no facial droop. Making nonsensical sounds. Withdraws to painful stimuli. Detailed neurologic examination not possible secondary to altered mental status.) - Psychiatric Psychiatric exam: Present: agitated - Skin Skin exam: Present: warm, dry, intact, normal color. Absent: rash ED Course Vital Signs 10/23/19 10/24/19 10/24/19 23:01 07:00 11:24 Temperature 97.9 F 98 F Pulse Rate 131 H 93 H 105 H Pulse Rate [ Intra-Procedure ] Pulse Rate [ Post-Procedure] Pulse Rate [Pre -Procedure] Respiratory 20 16 20 Rate Respiratory Rate [Intra- Procedure] Respiratory Rate [Post- Procedure] Respiratory Rate [Pre- Procedure] Blood Pressure 132/98 Blood Pressure [Intra- Procedure] Blood Pressure [Post-Procedure ] Blood Pressure [Pre-Procedure] Blood Pressure 113/67 [Right] O2 Sat by Pulse 100 98 97 Oximetry O2 Sat by Pulse Oximetry [ Intra-Procedure ] O2 Sat by Pulse Oximetry [Post -Procedure] O2 Sat by Pulse Oximetry [Pre- Procedure] 10/24/19 10/24/19 10/24/19 11:29 11:30 11:36 Temperature Pulse Rate 99 H 98 H Pulse Rate [ 93 H Intra-Procedure ] Pulse Rate [ 99 H Post-Procedure] Pulse Rate [Pre 93 H -Procedure] Respiratory 15 17 Rate Respiratory 8 L Rate [Intra- Procedure] Respiratory 17 Rate [Post- Procedure] Respiratory 10 L Rate [Pre- Procedure] Blood Pressure 137/97 Blood Pressure 122/95 [Intra- Procedure] Blood Pressure 171/135 [Post-Procedure ] Blood Pressure 137/97 [Pre-Procedure] Blood Pressure 145/101 [Right] O2 Sat by Pulse 100 100 Oximetry O2 Sat by Pulse 99 Oximetry [ Intra-Procedure ] O2 Sat by Pulse 99 Oximetry [Post -Procedure] O2 Sat by Pulse 99 Oximetry [Pre- Procedure] 10/24/19 10/24/19 10/24/19 11:45 12:00 12:15 Temperature Pulse Rate 102 H 88 83 Pulse Rate [ Intra-Procedure ] Pulse Rate [ Post-Procedure] Pulse Rate [Pre -Procedure] Respiratory 18 15 14 Rate Respiratory Rate [Intra- Procedure] Respiratory Rate [Post- Procedure] Respiratory Rate [Pre- Procedure] Blood Pressure 122/95 130/87 133/84 Blood Pressure [Intra- Procedure] Blood Pressure [Post-Procedure ] Blood Pressure [Pre-Procedure] Blood Pressure [Right] O2 Sat by Pulse 99 99 Oximetry O2 Sat by Pulse Oximetry [ Intra-Procedure ] O2 Sat by Pulse Oximetry [Post -Procedure] O2 Sat by Pulse Oximetry [Pre- Procedure] 10/24/19 10/24/19 10/24/19 12:30 12:45 13:01 Temperature Pulse Rate 83 85 Pulse Rate [ Intra-Procedure ] Pulse Rate [ Post-Procedure] Pulse Rate [Pre -Procedure] Respiratory 14 12 Rate Respiratory Rate [Intra- Procedure] Respiratory Rate [Post- Procedure] Respiratory Rate [Pre- Procedure] Blood Pressure 123/78 118/76 103/73 Blood Pressure [Intra- Procedure] Blood Pressure [Post-Procedure ] Blood Pressure [Pre-Procedure] Blood Pressure [Right] O2 Sat by Pulse Oximetry O2 Sat by Pulse Oximetry [ Intra-Procedure ] O2 Sat by Pulse Oximetry [Post -Procedure] O2 Sat by Pulse Oximetry [Pre- Procedure] 10/24/19 13:52 Temperature Pulse Rate 89 Pulse Rate [ Intra-Procedure ] Pulse Rate [ Post-Procedure] Pulse Rate [Pre -Procedure] Respiratory 11 L Rate Respiratory Rate [Intra- Procedure] Respiratory Rate [Post- Procedure] Respiratory Rate [Pre- Procedure] Blood Pressure Blood Pressure [Intra- Procedure] Blood Pressure [Post-Procedure ] Blood Pressure [Pre-Procedure] Blood Pressure [Right] O2 Sat by Pulse Oximetry O2 Sat by Pulse Oximetry [ Intra-Procedure ] O2 Sat by Pulse Oximetry [Post -Procedure] O2 Sat by Pulse Oximetry [Pre- Procedure] - Reevaluation(s) Reevaluation #1: 10/24/19 09:07 Differential diagnosis, including but not limited to: Toxic encephalopathy, metabolic encephalopathy, infectious encephalopathy, psychosis, rhabdomyolysis, dehydration, pneumonia, renal insufficiency, urinary tract infection Assessment and plan: 39-year-old female with altered mental status, agitated behavior, metabolic acidosis, renal insufficiency, rhabdomyolysis, requires admission to the medical service for optimization, IV fluids, antibiotics, and further evaluation and management. CT scan of the brain, chest pending. Lumbar puncture is pending. Antibiotics, fluids, isolation precautions have been ordered. The patient is altered at this time, has a potentially emergent and life-threatening condition which requires emergent evaluation and diagnostics, including CT scan and spinal tap. The patient is protecting her airway at this point in time, does not require intubation, she is emergently and administratively consented by myself for intramuscular ketamine administration for agitated delirium, to allow expedient acquisition of diagnostics, and resuscitative management and care. Reevaluation #2: 10/24/19 12:02 ct head negative, CT scan of the chest negative. Lumbar puncture attempted with moderate sedation, using intramuscular ketamine and intravenous propofol. A spinal tap not successful secondary to prohibitive body habitus. Case is presented to the Hospital physician, Dr. James Lopez, who has accepted the patient to the medical service. We will defer to the inpatient team to further workup the patient's delirium and encephalopathy. 10/24/19 12:04 Reevaluation #3: 10/24/19 15:03 patient too altered/delerious to let us know when her last oral intake was - Lumbar Puncture Consent Obtained: emergent situation Time Out Performed: Yes Indication for Procedure: change in mental status, other Patient Position: left lateral decubitus Skin Prep: Povidone-Iodine 1% Local Anesthetic Used: Lidocaine 2% Amount of anesthesia used (mls): 10 Spinal Needle Gauge: Other (18) Spinal Needle Length: 3.5in Interspace Used: L4-L5 Fluid Initially Obtained: other Complications: unable to obtain CSF Patient Tolerated Procedure: well - Moderate Sedation Indications: diagnostic imaging proced (spinal tap, lumbar puncture, acquisition of CT scan chest, brain) ASA Class: II Mallampati Airway Score: 2 Preparation: environmental monitoring technician applied, pulse oximeter, capnometry used, supplemental O2 applied, suction/airway equipment at bedside, IV secured Ketamine: IM Ketamine Dose: 450 IV Propofol Dose (mgs): 50 Complications: none Patient Tolerated Procedure: well ED Medical Decision Making - Lab Data Result diagrams: 10/24/19 04:53 10/24/19 04:53 Vital Signs 10/23/19 23:01 Temperature 97.9 F Pulse Rate 131 H Respiratory 20 Rate Blood Pressure 132/98 O2 Sat by Pulse 100 Oximetry Lab Results 10/24/19 10/24/19 10/24/19 Range/Units 04:53 04:53 04:53 WBC 8.8 (4.5-11.0) K/mm3 RBC 5.29 H (3.65-5.03) M/mm3 Hgb 13.8 (10.1-14.3) gm/dl Hct 42.3 (30.3-42.9) % MCV 80 (79-97) fl MCH 26 L (28-32) pg MCHC 33 (30-34) % RDW 16.3 H (13.2-15.2) % Plt Count 508 H (140-440) K/mm3 Lymph % (Auto) 23.1 (13.4-35.0) % [place] % (Auto) 11.7 H (0.0-7.3) % Eos % (Auto) 0.3 (0.0-4.3) % Baso % (Auto) 0.6 (0.0-1.8) % Lymph # 2.0 (1.2-5.4) K/mm3 [place] # 1.0 H (0.0-0.8) K/mm3 Eos # 0.0 (0.0-0.4) K/mm3 Baso # 0.0 (0.0-0.1) K/mm3 Seg Neutrophils % 64.3 (40.0-70.0) % Seg Neutrophils # 5.6 (1.8-7.7) K/mm3 Sodium 140 (137-145) mmol/L Potassium 4.2 (3.6-5.0) mmol/L Chloride 99.4 (98-107) mmol/L Carbon Dioxide 18 L (22-30) mmol/L Anion Gap 27 mmol/L BUN 21 H (7-17) mg/dL Creatinine 2.2 H (0.7-1.2) mg/dL Estimated GFR 30 ml/min BUN/Creatinine Ratio 10 % Glucose 140 H (65-100) mg/dL Calcium 10.8 H (8.4-10.2) mg/dL Total Bilirubin 0.50 (0.1-1.2) mg/dL AST 81 H (5-40) units/L ALT 28 (7-56) units/L Alkaline Phosphatase 68 (35-129) units/L Total Protein 8.5 H (6.3-8.2) g/dL Albumin 5.2 H (3.9-5) g/dL Albumin/Globulin Ratio 1.6 % Plasma/Serum Alcohol < 0.01 (0-0.07) % Vital Signs 10/23/19 23:01 Temperature 97.9 F Pulse Rate 131 H Respiratory 20 Rate Blood Pressure 132/98 O2 Sat by Pulse 100 Oximetry Lab Results 10/24/19 10/24/19 10/24/19 Range/Units 04:53 04:53 04:53 WBC 8.8 (4.5-11.0) K/mm3 RBC 5.29 H (3.65-5.03) M/mm3 Hgb 13.8 (10.1-14.3) gm/dl Hct 42.3 (30.3-42.9) % MCV 80 (79-97) fl MCH 26 L (28-32) pg MCHC 33 (30-34) % RDW 16.3 H (13.2-15.2) % Plt Count 508 H (140-440) K/mm3 Lymph % (Auto) 23.1 (13.4-35.0) % [place] % (Auto) 11.7 H (0.0-7.3) % Eos % (Auto) 0.3 (0.0-4.3) % Baso % (Auto) 0.6 (0.0-1.8) % Lymph # 2.0 (1.2-5.4) K/mm3 [place] # 1.0 H (0.0-0.8) K/mm3 Eos # 0.0 (0.0-0.4) K/mm3 Baso # 0.0 (0.0-0.1) K/mm3 Seg Neutrophils % 64.3 (40.0-70.0) % Seg Neutrophils # 5.6 (1.8-7.7) K/mm3 Sodium 140 (137-145) mmol/L Potassium 4.2 (3.6-5.0) mmol/L Chloride 99.4 (98-107) mmol/L Carbon Dioxide 18 L (22-30) mmol/L Anion Gap 27 mmol/L BUN 21 H (7-17) mg/dL Creatinine 2.2 H (0.7-1.2) mg/dL Estimated GFR 30 ml/min BUN/Creatinine Ratio 10 % Glucose 140 H (65-100) mg/dL Calcium 10.8 H (8.4-10.2) mg/dL Magnesium (1.7-2.3) mg/dL Total Bilirubin 0.50 (0.1-1.2) mg/dL AST 81 H (5-40) units/L ALT 28 (7-56) units/L Alkaline Phosphatase 68 (35-129) units/L Lactate Dehydrogenase (91-180) units/L Total Creatine Kinase (30-135) units/L Total Protein 8.5 H (6.3-8.2) g/dL Albumin 5.2 H (3.9-5) g/dL Albumin/Globulin Ratio 1.6 % TSH (0.270-4.200) mlU/mL HCG, Quant (0-4) mIU/mL Urine Color (Yellow) Urine Turbidity (Clear) Urine pH (5.0-7.0) Ur Specific Fisher (1.003-1.030) Urine Protein (Negative) mg/dL Urine Glucose (UA) (Negative) mg/dL Urine Ketones (Negative) mg/dL Urine Blood (Negative) Urine Nitrite (Negative) Urine Bilirubin (Negative) Urine Urobilinogen (<2.0) mg/dL Ur Leukocyte Esterase (Negative) Urine WBC (Auto) (0.0-6.0) /HPF Urine RBC (Auto) (0.0-6.0) /HPF U Epithel Cells (Auto) (0-13.0) /HPF Urine Bacteria (Auto) (Negative) /HPF Urine Mucus /HPF Salicylates (2.8-20.0) mg/dL Urine Opiates Screen Urine Methadone Screen Acetaminophen (10.0-30.0) ug/mL Ur Barbiturates Screen Ur Phencyclidine Scrn Ur Amphetamines Screen U Benzodiazepines Scrn Urine Cocaine Screen U Marijuana (THC) Screen Drugs of Abuse Note Plasma/Serum Alcohol < 0.01 (0-0.07) % 10/24/19 10/24/19 10/24/19 Range/Units 04:53 04:53 04:53 WBC (4.5-11.0) K/mm3 RBC (3.65-5.03) M/mm3 Hgb (10.1-14.3) gm/dl Hct (30.3-42.9) % MCV (79-97) fl MCH (28-32) pg MCHC (30-34) % RDW (13.2-15.2) % Plt Count (140-440) K/mm3 Lymph % (Auto) (13.4-35.0) % [place] % (Auto) (0.0-7.3) % Eos % (Auto) (0.0-4.3) % Baso % (Auto) (0.0-1.8) % Lymph # (1.2-5.4) K/mm3 [place] # (0.0-0.8) K/mm3 Eos # (0.0-0.4) K/mm3 Baso # (0.0-0.1) K/mm3 Seg Neutrophils % (40.0-70.0) % Seg Neutrophils # (1.8-7.7) K/mm3 Sodium (137-145) mmol/L Potassium (3.6-5.0) mmol/L Chloride (98-107) mmol/L Carbon Dioxide (22-30) mmol/L Anion Gap mmol/L BUN (7-17) mg/dL Creatinine (0.7-1.2) mg/dL Estimated GFR ml/min BUN/Creatinine Ratio % Glucose (65-100) mg/dL Calcium (8.4-10.2) mg/dL Magnesium 1.90 (1.7-2.3) mg/dL Total Bilirubin (0.1-1.2) mg/dL AST (5-40) units/L ALT (7-56) units/L Alkaline Phosphatase (35-129) units/L Lactate Dehydrogenase 386 H (91-180) units/L Total Creatine Kinase 4625 H (30-135) units/L Total Protein (6.3-8.2) g/dL Albumin (3.9-5) g/dL Albumin/Globulin Ratio % TSH 2.070 (0.270-4.200) mlU/mL HCG, Quant (0-4) mIU/mL Urine Color (Yellow) Urine Turbidity (Clear) Urine pH (5.0-7.0) Ur Specific Fisher (1.003-1.030) Urine Protein (Negative) mg/dL Urine Glucose (UA) (Negative) mg/dL Urine Ketones (Negative) mg/dL Urine Blood (Negative) Urine Nitrite (Negative) Urine Bilirubin (Negative) Urine Urobilinogen (<2.0) mg/dL Ur Leukocyte Esterase (Negative) Urine WBC (Auto) (0.0-6.0) /HPF Urine RBC (Auto) (0.0-6.0) /HPF U Epithel Cells (Auto) (0-13.0) /HPF Urine Bacteria (Auto) (Negative) /HPF Urine Mucus /HPF Salicylates < 0.3 L (2.8-20.0) mg/dL Urine Opiates Screen Urine Methadone Screen Acetaminophen (10.0-30.0) ug/mL Ur Barbiturates Screen Ur Phencyclidine Scrn Ur Amphetamines Screen U Benzodiazepines Scrn Urine Cocaine Screen U Marijuana (THC) Screen Drugs of Abuse Note Plasma/Serum Alcohol (0-0.07) % 10/24/19 10/24/19 10/24/19 Range/Units 04:53 04:53 07:30 WBC (4.5-11.0) K/mm3 RBC (3.65-5.03) M/mm3 Hgb (10.1-14.3) gm/dl Hct (30.3-42.9) % MCV (79-97) fl MCH (28-32) pg MCHC (30-34) % RDW (13.2-15.2) % Plt Count (140-440) K/mm3 Lymph % (Auto) (13.4-35.0) % [place] % (Auto) (0.0-7.3) % Eos % (Auto) (0.0-4.3) % Baso % (Auto) (0.0-1.8) % Lymph # (1.2-5.4) K/mm3 [place] # (0.0-0.8) K/mm3 Eos # (0.0-0.4) K/mm3 Baso # (0.0-0.1) K/mm3 Seg Neutrophils % (40.0-70.0) % Seg Neutrophils # (1.8-7.7) K/mm3 Sodium (137-145) mmol/L Potassium (3.6-5.0) mmol/L Chloride (98-107) mmol/L Carbon Dioxide (22-30) mmol/L Anion Gap mmol/L BUN (7-17) mg/dL Creatinine (0.7-1.2) mg/dL Estimated GFR ml/min BUN/Creatinine Ratio % Glucose (65-100) mg/dL Calcium (8.4-10.2) mg/dL Magnesium (1.7-2.3) mg/dL Total Bilirubin (0.1-1.2) mg/dL AST (5-40) units/L ALT (7-56) units/L Alkaline Phosphatase (35-129) units/L Lactate Dehydrogenase (91-180) units/L Total Creatine Kinase (30-135) units/L Total Protein (6.3-8.2) g/dL Albumin (3.9-5) g/dL Albumin/Globulin Ratio % TSH (0.270-4.200) mlU/mL HCG, Quant < 2 (0-4) mIU/mL Urine Color Yellow (Yellow) Urine Turbidity Cloudy (Clear) Urine pH 5.0 (5.0-7.0) Ur Specific [place] 1.023 (1.003-1.030) Urine Protein 30 mg/dl (Negative) mg/dL Urine Glucose (UA) Neg (Negative) mg/dL Urine Ketones Tr (Negative) mg/dL Urine Blood Mod (Negative) Urine Nitrite Neg (Negative) Urine Bilirubin Neg (Negative) Urine Urobilinogen < 2.0 (<2.0) mg/dL Ur Leukocyte Esterase Neg (Negative) Urine WBC (Auto) 18.0 H (0.0-6.0) /HPF Urine RBC (Auto) 2.0 (0.0-6.0) /HPF U Epithel Cells (Auto) 8.0 (0-13.0) /HPF Urine Bacteria (Auto) 2+ (Negative) /HPF Urine Mucus 1+ /HPF Salicylates (2.8-20.0) mg/dL Urine Opiates Screen Urine Methadone Screen Acetaminophen < 5.0 L (10.0-30.0) ug/mL Ur Barbiturates Screen Ur Phencyclidine Scrn Ur Amphetamines Screen U Benzodiazepines Scrn Urine Cocaine Screen U Marijuana (THC) Screen Drugs of Abuse Note Plasma/Serum Alcohol (0-0.07) % 10/24/19 Range/Units 07:30 WBC (4.5-11.0) K/mm3 RBC (3.65-5.03) M/mm3 Hgb (10.1-14.3) gm/dl Hct (30.3-42.9) % MCV (79-97) fl MCH (28-32) pg MCHC (30-34) % RDW (13.2-15.2) % Plt Count (140-440) K/mm3 Lymph % (Auto) (13.4-35.0) % [place] % (Auto) (0.0-7.3) % Eos % (Auto) (0.0-4.3) % Baso % (Auto) (0.0-1.8) % Lymph # (1.2-5.4) K/mm3 [place] # (0.0-0.8) K/mm3 Eos # (0.0-0.4) K/mm3 Baso # (0.0-0.1) K/mm3 Seg Neutrophils % (40.0-70.0) % Seg Neutrophils # (1.8-7.7) K/mm3 Sodium (137-145) mmol/L Potassium (3.6-5.0) mmol/L Chloride (98-107) mmol/L Carbon Dioxide (22-30) mmol/L Anion Gap mmol/L BUN (7-17) mg/dL Creatinine (0.7-1.2) mg/dL Estimated GFR ml/min BUN/Creatinine Ratio % Glucose (65-100) mg/dL Calcium (8.4-10.2) mg/dL Magnesium (1.7-2.3) mg/dL Total Bilirubin (0.1-1.2) mg/dL AST (5-40) units/L ALT (7-56) units/L Alkaline Phosphatase (35-129) units/L Lactate Dehydrogenase (91-180) units/L Total Creatine Kinase (30-135) units/L Total Protein (6.3-8.2) g/dL Albumin (3.9-5) g/dL Albumin/Globulin Ratio % TSH (0.270-4.200) mlU/mL HCG, Quant (0-4) mIU/mL Urine Color (Yellow) Urine Turbidity (Clear) Urine pH (5.0-7.0) Ur Specific Fisher (1.003-1.030) Urine Protein (Negative) mg/dL Urine Glucose (UA) (Negative) mg/dL Urine Ketones (Negative) mg/dL Urine Blood (Negative) Urine Nitrite (Negative) Urine Bilirubin (Negative) Urine Urobilinogen (<2.0) mg/dL Ur Leukocyte Esterase (Negative) Urine WBC (Auto) (0.0-6.0) /HPF Urine RBC (Auto) (0.0-6.0) /HPF U Epithel Cells (Auto) (0-13.0) /HPF Urine Bacteria (Auto) (Negative) /HPF Urine Mucus /HPF Salicylates (2.8-20.0) mg/dL Urine Opiates Screen Presumptive negative Urine Methadone Screen Presumptive negative Acetaminophen (10.0-30.0) ug/mL Ur Barbiturates Screen Presumptive negative Ur Phencyclidine Scrn Presumptive negative Ur Amphetamines Screen Presumptive positive U Benzodiazepines Scrn Presumptive negative Urine Cocaine Screen Presumptive negative U Marijuana (THC) Screen Presumptive negative Drugs of Abuse Note Disclamer Plasma/Serum Alcohol (0-0.07) % - EKG Data -: EKG Interpreted by [place] EKG shows normal: sinus rhythm Rate: normal - EKG Data 10/24/19 09:09 The EKG today shows a sinus rhythm, 96 bpm, normal axis, QTC 456 ms, there is left ventricular hypertrophy, this EKG is not consistent with ST elevation myocardial infarction. - Radiology Data Radiology results: report reviewed, image reviewed Print Report Referring Physician: AMANDA HERNANDEZ Patient Name: FLORINDA RIVERA Date of : 1980 Sex: Female Report Date: 2019-10-24 Report Status: Finalized Findings [address] [address] XRay Report Signed Patient: FLORINDA RIVERA MR #: [id number] : 1980 Acct:[id number] Age/Sex: 39 / F ADM Date: 10/23/19 Loc: ED Attending Dr: Ordering Physician: COLLEEN KEY Date of Service: 10/24/19 Procedure(s): XR chest routine 2V Accession Number(s): [id number] cc: COLLEEN KEY Fluoro Time In Minutes: CHEST 2 VIEWS, 10/24/2019 4:50 AM INDICATION: Cough COMPARISON: Chest radiograph, 08/30/2017 FINDINGS: Support devices: None Heart: The heart appears normal in size. Lungs/pleura: Low lung volumes are noted bilaterally without evidence of focal airspace disease or significant pleural effusion. Additional findings: None IMPRESSION: 1. No evidence of acute cardiopu lmonary process. Signer Name: Missy Egan MD Signed: 10/24/2019 5:13 AM Workstation Name: [id number] Transcribed By: EB Dictated By: Missy Egan MD Electronically Authenticated By: Missy Egan MD Signed Date/Time: 10/24/19512 DD/ 0 TD/TT: Critical Care Time: Yes Critical care time in (mins) excluding proc time.: 35 Critical care attestation.: If time is entered above; I have spent that time in minutes in the direct care of this critically ill patient, excluding procedure time. ED Disposition Clinical Impression: Rhabdomyolysis, [place] (acute kidney injury), Acute encephalopathy, Metabolic acidosis, UTI (urinary tract infection), HIV positive, Psychosis Disposition: OP ADMIT IP TO THIS HOSP Is pt being admited?: Yes Condition: Serious
[2019-10-24] MEDS ORDERED: ZIPRASIDONE MESYLATE 20 MG VIAL IM ONE ×2 (06:49→06:50)
[2019-10-24] MEDS ORDERED: LORazepam 2 MG/ML VIAL ONE (06:49)
[2019-10-24] MEDS ORDERED: SODIUM CHLORIDE 0.9% 1000 ML 2,000 ML IV ONE (06:50)
[2019-10-24] MEDS: LORazepam 2 MG/ML VIAL IM PRN ×2 (06:59→21:48)
--- NOTE | 2019-10-24 07:27 | Emergency Department Report ---
ED General Adult HPI - General Chief complaint: Dyspnea/Respdistress Stated complaint: DANIEL Time Seen by Provider: 10/24/19 06:27 Source: patient Mode of arrival: Ambulatory Limitations: No Limitations - History of Present Illness Initial comments: The patient is a 39-year-old Mexican female with no past medical history presents to the ED with complaint of persistent sore throat, diffuse body aches and pains, dry cough and shortness of breath for the last 1 month, worse the last 2 days. Patient states that in the last 2 days she has not been able to swallow anything because of severe sore throat and worsening diffuse body aches and pains. Patient denies chest pain, dizziness, syncope, abdominal pain, nausea and vomiting or dysuria, fever and chills, urinary frequency and urgency and headache. Patient also denies alcohol, or street drug use. MD Complaint: Sore throat, dry cough; body aches and pains -: Gradual, month(s) (2) Location: mouth, chest Radiation: back, other (diffuse body aches) Severity scale (0 -10): 6 Quality: aching, sharp Consistency: constant Improves with: none Worsens with: none Associated Symptoms: denies other symptoms, cough, loss of appetite, malaise. denies: confusion, chest pain, diaphoresis, fever/chills, headaches, nausea/vomiting, rash, seizure, shortness of breath, syncope, weakness Treatments Prior to Arrival: none - Related Data Previous Rx's Medication Instructions Recorded Last Taken Type Azithromycin [Zithromax TAB] 250 mg PO DAILY tablet 01/04/19 Unknown Rx Dextroamphetamine/Amphetamine 60 mg PO DAILY 01/04/19 Unknown Rx [Adderall 20 mg Tablet] QUEtiapine [SEROquel] 200 mg PO QHS #14 tablet 01/04/19 Unknown Rx Amoxicillin [Trimox CAP] 500 mg PO Q8H 10 Days #20 capsule 06/05/19 Unknown Rx Ibuprofen [Motrin 600 MG tab] 600 mg PO Q8H PRN #15 tablet 06/05/19 Unknown Rx Ondansetron [Zofran Odt] 4 mg PO Q8HR PRN #14 tab.rapdis 07/29/19 Unknown Rx Gentamicin 0.3% Ophth Soln 2 drops OP Q4H #5 ml 08/25/19 Unknown Rx Ketorolac Tromethamin 0.4%(Nf) 1 drop OD QID PRN #5 ml 08/25/19 Unknown Rx [Acular Ls 0.4% Ophth Elida] Allergies Allergy/AdvReac Type Severity Reaction Status Date / Time Sulfa (Sulfonamide Allergy Swelling Verified 08/25/19 17:31 Antibiotics) sulfamethoxazole Allergy Swelling Verified 08/25/19 17:31 [From Bactrim] trimethoprim [From Bactrim] Allergy Swelling Verified 08/25/19 17:31 ziprasidone [From Geodon] Allergy Unknown Verified 08/25/19 17:31 ED Review of Systems ROS: Stated complaint: DANIEL Other details as noted in HPI Constitutional: malaise. denies: chills, fever Eyes: denies: eye pain, eye discharge, vision change ENT: throat pain, congestion. denies: ear pain Respiratory: cough. denies: shortness of breath, wheezing Cardiovascular: denies: chest pain, palpitations Endocrine: no symptoms reported Gastrointestinal: denies: abdominal pain, nausea, diarrhea Genitourinary: denies: urgency, dysuria, discharge Musculoskeletal: back pain, arthralgia. denies: joint swelling Skin: denies: rash, lesions Neurological: denies: headache, weakness, paresthesias Psychiatric: anxiety. denies: depression, homicidal thoughts, suicidal thoughts Hematological/Lymphatic: denies: easy bleeding, easy bruising ED Past Medical Hx - Past Medical History Hx Hypertension: No Hx Psychiatric Treatment: Yes (PTSD, BIPOLAR, ADHD,anxiety) Hx HIV: Yes (Last CD4 800's 07/19/2019) Additional medical history: ezcema - Surgical History Hx Coronary Stent: No Additional Surgical History: D&C. breast implants. wisdom teeth removed. tubal ligation - Social History Smoking Status: Never Smoker Substance Use Type: None - Medications Home Medications: Home Medications Medication Instructions Recorded Confirmed Last Taken Type Azithromycin [Zithromax TAB] 250 mg PO DAILY tablet 01/04/19 10/24/19 Unknown Rx Dextroamphetamine/Amphetamine 60 mg PO DAILY 01/04/19 10/24/19 Unknown Rx [Adderall 20 mg Tablet] QUEtiapine [SEROquel] 200 mg PO QHS #14 tablet 01/04/19 10/24/19 Unknown Rx Amoxicillin [Trimox CAP] 500 mg PO Q8H 10 Days #20 capsule 06/05/19 10/24/19 Unknown Rx Ibuprofen [Motrin 600 MG tab] 600 mg PO Q8H PRN #15 tablet 06/05/19 10/24/19 Unknown Rx Ondansetron [Zofran Odt] 4 mg PO Q8HR PRN #14 tab.rapdis 07/29/19 10/24/19 Unknown Rx Gentamicin 0.3% Ophth Soln 2 drops OP Q4H #5 ml 08/25/19 10/24/19 Unknown Rx Ketorolac Tromethamin 0.4%(Nf) 1 drop OD QID PRN #5 ml 08/25/19 10/24/19 Unknown Rx [Acular Ls 0.4% Ophth Elida] ED Physical Exam - General Limitations: No Limitations General appearance: alert, appears intoxicated, anxious, lethargic - Head Head exam: Present: atraumatic, normocephalic, normal inspection - Eye Eye exam: Present: normal appearance, PERRL, EOMI Pupils: Present: normal accommodation - ENT ENT exam: Present: normal exam, normal orophraynx, mucous membranes moist, TM's normal bilaterally, normal external ear exam - Neck Neck exam: Present: normal inspection, full ROM - Respiratory Respiratory exam: Present: normal lung sounds bilaterally. Absent: respiratory distress, wheezes, rales, rhonchi, chest wall tenderness, accessory muscle use, decreased breath sounds - Cardiovascular Cardiovascular Exam: Present: normal rhythm, tachycardia, normal heart sounds. Absent: systolic murmur, diastolic murmur, rubs, gallop - GI/Abdominal GI/Abdominal exam: Present: soft, normal bowel sounds. Absent: tenderness, hyperactive bowel sounds - Extremities Exam Extremities exam: Present: normal inspection, full ROM, normal capillary refill - Back Exam Back exam: Present: normal inspection, full ROM. Absent: tenderness, muscle spasm, paraspinal tenderness - Neurological Exam Neurological exam: Present: alert, oriented X3, CN II-XII intact, normal gait, reflexes normal - Psychiatric Psychiatric exam: Present: normal mood, anxious, manic. Absent: homicidal ideation, suicidal ideation - Skin Skin exam: Present: warm, dry, intact, normal color. Absent: rash ED Course Vital Signs 10/23/19 10/24/19 10/24/19 23:01 07:00 11:24 Temperature 97.9 F 98 F Pulse Rate 131 H 93 H 105 H Pulse Rate [ Intra-Procedure ] Pulse Rate [ Post-Procedure] Respiratory 20 16 20 Rate Respiratory Rate [Intra- Procedure] Respiratory Rate [Post- Procedure] Blood Pressure 132/98 Blood Pressure [Intra- Procedure] Blood Pressure [Post-Procedure ] Blood Pressure 113/67 [Right] O2 Sat by Pulse 100 98 97 Oximetry O2 Sat by Pulse Oximetry [ Intra-Procedure ] O2 Sat by Pulse Oximetry [Post -Procedure] 10/24/19 10/24/19 10/24/19 11:29 11:30 11:36 Temperature Pulse Rate 99 H 98 H Pulse Rate [ Intra-Procedure ] Pulse Rate [ 99 H Post-Procedure] Respiratory 15 17 Rate Respiratory Rate [Intra- Procedure] Respiratory 17 Rate [Post- Procedure] Blood Pressure 137/97 Blood Pressure [Intra- Procedure] Blood Pressure 171/135 [Post-Procedure ] Blood Pressure 145/101 [Right] O2 Sat by Pulse 100 100 Oximetry O2 Sat by Pulse Oximetry [ Intra-Procedure ] O2 Sat by Pulse 99 Oximetry [Post -Procedure] 10/24/19 10/24/19 10/24/19 11:43 11:45 11:47 Temperature Pulse Rate 102 H Pulse Rate [ 93 H Intra-Procedure ] Pulse Rate [ 99 H Post-Procedure] Respiratory 18 Rate Respiratory 8 L Rate [Intra- Procedure] Respiratory 17 Rate [Post- Procedure] Blood Pressure 122/95 Blood Pressure 122/95 [Intra- Procedure] Blood Pressure 171/135 [Post-Procedure ] Blood Pressure [Right] O2 Sat by Pulse 99 Oximetry O2 Sat by Pulse 99 Oximetry [ Intra-Procedure ] O2 Sat by Pulse 99 Oximetry [Post -Procedure] 10/24/19 10/24/19 10/24/19 12:00 12:15 12:30 Temperature Pulse Rate 88 83 83 Pulse Rate [ Intra-Procedure ] Pulse Rate [ Post-Procedure] Respiratory 15 14 14 Rate Respiratory Rate [Intra- Procedure] Respiratory Rate [Post- Procedure] Blood Pressure 130/87 133/84 123/78 Blood Pressure [Intra- Procedure] Blood Pressure [Post-Procedure ] Blood Pressure [Right] O2 Sat by Pulse 99 Oximetry O2 Sat by Pulse Oximetry [ Intra-Procedure ] O2 Sat by Pulse Oximetry [Post -Procedure] 10/24/19 10/24/19 10/24/19 12:45 13:01 13:52 Temperature Pulse Rate 85 89 Pulse Rate [ Intra-Procedure ] Pulse Rate [ Post-Procedure] Respiratory 12 11 L Rate Respiratory Rate [Intra- Procedure] Respiratory Rate [Post- Procedure] Blood Pressure 118/76 103/73 Blood Pressure [Intra- Procedure] Blood Pressure [Post-Procedure ] Blood Pressure [Right] O2 Sat by Pulse Oximetry O2 Sat by Pulse Oximetry [ Intra-Procedure ] O2 Sat by Pulse Oximetry [Post -Procedure] 10/24/19 10/24/19 10/24/19 14:01 14:11 14:21 Temperature Pulse Rate 88 89 87 Pulse Rate [ Intra-Procedure ] Pulse Rate [ Post-Procedure] Respiratory 13 14 13 Rate Respiratory Rate [Intra- Procedure] Respiratory Rate [Post- Procedure] Blood Pressure Blood Pressure [Intra- Procedure] Blood Pressure [Post-Procedure ] Blood Pressure [Right] O2 Sat by Pulse Oximetry O2 Sat by Pulse Oximetry [ Intra-Procedure ] O2 Sat by Pulse Oximetry [Post -Procedure] 10/24/19 14:31 Temperature Pulse Rate 88 Pulse Rate [ Intra-Procedure ] Pulse Rate [ Post-Procedure] Respiratory 13 Rate Respiratory Rate [Intra- Procedure] Respiratory Rate [Post- Procedure] Blood Pressure Blood Pressure [Intra- Procedure] Blood Pressure [Post-Procedure ] Blood Pressure [Right] O2 Sat by Pulse Oximetry O2 Sat by Pulse Oximetry [ Intra-Procedure ] O2 Sat by Pulse Oximetry [Post -Procedure] - Reevaluation(s) Reevaluation #1: 10/24/19 07:28 Patient was initially evaluated in the ED fast track area after presenting with URI symptoms. Chest x-ray showed no acute cardiopulmonary abnormalities. While in the fast track ED section, patient received Ativan, Viscous Lidocaine, normal saline 1 L IV bolus, Benadryl and Haldol after she developed persistent agitation, visual hallucinations and delusional thoughts. Patient was there after transferred to the main ED for further evaluation. 10/24/19 07:29 ED Medical Decision Making - Lab Data Result diagrams: 10/25/19 05:55 10/24/19 04:53 - Medical Decision Making This is a 39 year-old female who had presented to the ED with acute upper respiratory infection symptoms. Patient was initially evaluated in the ED fast track area after presenting with URI symptoms. Chest x-ray showed no acute cardiopulmonary abnormalities. While in the fast track ED section, patient's condition deteriorated and she became lethargic, altered and persistently agitated, hyperverbal with expressive visual hallucinations. Patient was then treated in the ED fast track area with Ativan, Viscous Lidocaine, normal saline 1 L IV bolus, Benadryl and Haldol after she developed persistent agitation, visual hallucinations and delusional thoughts. Patient was thereafter transferred to the main ED for further evaluation. The patient care assumed by the ED attending physician Dr. Bob. - Differential Diagnosis Psychosis; URI; Pneumonia; UTI; Altered mental status; drug abuse Critical care attestation.: If time is entered above; I have spent that time in minutes in the direct care of this critically ill patient, excluding procedure time. ED Disposition Clinical Impression: Rhabdomyolysis, CAMERON (acute kidney injury), Acute encephalopathy, Metabolic acidosis, UTI (urinary tract infection), HIV positive, Psychosis Disposition: OP ADMIT IP TO THIS HOSP Is pt being admited?: Yes Condition: Serious
[2019-10-24 08:08] LABS: Bacteria,Urine 2+ /HPF (Negative); Bilirubin,Urine NEG (Negative); Blood,Urine MOD (Negative); Color,Urine Yellow (Yellow); Mucus,Urine 1+ /HPF; Urobilinogen,Urine < 2.0 mg/dL (<2.0)
[2019-10-24 08:10] LABS: Benzodiazepines Screen,Urine PRESUMPTIVE NEGATIVE; Cannabinoid Screen,Urine PRESUMPTIVE NEGATIVE; Cocaine Screen,Urine PRESUMPTIVE NEGATIVE; Methadone Screen,Urine PRESUMPTIVE NEGATIVE; Opiate Screen,Urine PRESUMPTIVE NEGATIVE
[2019-10-24] MEDS ORDERED: ONDANSETRON 4 MG/2 ML INJ IV ONE (08:13)
[2019-10-24 08:29] LABS: Amphetamine Screen,Urine PRESUMPTIVE POSITIVE
[2019-10-24] MEDS ORDERED: cefTRIAXone 200 MG in SODIUM CHLORIDE 0.9% 50 ML IV STA (08:40)
[2019-10-24] MEDS ORDERED: dexAMETHasone 20 MG/5 ML VIAL IV ONE (08:53)
[2019-10-24] MEDS ORDERED: LIDOCAINE 2%/EPINEPHRINE 1:100,000 VIAL (20 ML) INFILTRATI ONE (08:53)
[2019-10-24] MEDS ORDERED: ACYCLOVIR 800 MG in SODIUM CHLORIDE 0.9% 250ML 250 ML IV STA (08:53)
[2019-10-24] MEDS ORDERED: VANCOMYCIN/NS 1 GM/250 ML 1 GM/250 ML BAG IV ONE (09:30)
[2019-10-24 09:33] LABS: INR 1.04 (0.87-1.13)
[2019-10-24 09:34] LABS: Partial Thromboplastin Time 33.6 Sec. (24.2-36.6)
[2019-10-24] MEDS ORDERED: KETAMINE 500 MG/5 ML VIAL MDV IM ONE (10:44)
[2019-10-24] MEDS ORDERED: LIDOCAINE 2%/EPINEPHRINE 1:200,000 VIAL (20 ML) INFILTRATI ONE (11:18)
[2019-10-24] MEDS: KETAMINE 500 MG/5 ML VIAL MDV IM ONE ×2 (11:19→12:32)
[2019-10-24] MEDS ORDERED: PROPOFOL 200 MG/20 ML VIAL IV ONE (11:23)
[2019-10-24] MEDS ORDERED: SODIUM CHLORIDE 0.9% 1000 ML 3,000 ML ONE (11:34)
--- NOTE | 2019-10-24 11:42 | Cat Scan Report ---
CT CHEST WITHOUT CONTRAST INDICATION / CLINICAL INFORMATION: Altered mental status. Shortness of breath TECHNIQUE: Axial CT images were obtained through the chest without contrast. Sagittal and coronal reformatted im ages. All CT scans at this location are performed using CT dose reduction for ALARA by means of autom ated exposure control. COMPARISON: None available. FINDINGS: HEART: No significant abnormality. THORACIC AORTA: No significant abnormality. MEDIASTINUM and JESSE: No significant abnormality. LUNGS: No acute air space or interstitial disease. PLEURA: No significant pleural effusion. No pneumothorax. SKELETAL SYSTEM: No significant abnormality. UPPER ABDOMEN: No significant abnormality. ADDITIONAL FINDINGS: Bilateral breast prostheses appear intact. IMPRESSION: No significant abnormality. Signer Name: Douglas Gaines Jr, MD Signed: 10/24/2019 11:38 AM Workstation Name: [id number]
--- NOTE | 2019-10-24 11:47 | Cat Scan Report ---
CT head/brain wo con INDICATION / CLINICAL INFORMATION: 39 years Female; Altered mental status / Hx of S.O.B.. TECHNIQUE: Routine CT head without contrast. All CT scans at this location are performed using CT dos e reduction for ALARA by means of automated exposure control. COMPARISON: None. FINDINGS: BRAIN / INTRACRANIAL CONTENTS: No acute hemorrhage, mass effect, midline shift, hydrocephalus, or acu te, large territorial infarct. No chronic infarct or atrophy appreciated. No significant white matter abnormality. CRANIOCERVICAL JUNCTION: No significant abnormality. ORBITS: No significant abnormality of visualized orbits. SINUSES / MASTOIDS: No significant abnormality the visualized paranasal sinuses or mastoid air cells. ADDITIONAL FINDINGS: None. IMPRESSION: 1. No focal mass, hemorrhage, hydrocephalus, or acute, large territorial infarct. Signer Name: Daniel Mota MD, III Signed: 10/24/2019 11:43 AM Workstation Name: [id number]
[2019-10-24] MEDS ORDERED: ALBUTEROL 2.5 MG/3 ML NEBU IH PRN (12:05)
[2019-10-24] MEDS ORDERED: ACETAMINOPHEN 325 MG TAB PO PRN (12:05)
[2019-10-24] MEDS ORDERED: ONDANSETRON 4 MG/2 ML INJ IV PRN (12:05)
[2019-10-24] MEDS ORDERED: KETOROLAC TROMETHAMIN 0.4% OD PRN (12:08)
--- NOTE | 2019-10-24 12:09 | History and Physical Report ---
History of Present Illness Date of examination: 10/24/19 Date of admission: 10/24/19 Chief complaint: Delirium History of present illness: Patient is a 39-year-old female with past medical history of HIV, AIDS, hypertension, GERD, polysubstance dependence, bipolar disorder, adult ADHD, on amphetamine therapy, presented to the ER with complaints of persistent sore thro at, diffuse body ache pains dry cough shortness of breath lasting for about a month worse in the last 2 days. With difficulty swallowing. Patient also was noted to be incoherent with examination. Patient had been transported to our facility with EMS I do not unfortunately have access to the EMS that at this time. In the ED the patient was noted to have acute rhabdomyolysis and acute kidney injury with also notation of acute psychosis and nonsensical conversation with herself likely hallucination. Upon my attempt to examine the patient the patient was sedated although able to maintain airway. She is currently 1013 for psychosis unable ability to care for herself. No other information is available to me at this time. During her last admission here in December 2018 the patient was noted to have rhabdomyolysis which improved with fluids at that time was also in need of antibiotics. Patient was at that time homicidal and suicidal which is not the case at this time. She was started on Seroquel prior to discharge. Past History Past Medical History: other ( NOTED IN HPI) Past Surgical History: No surgical history Social history: no significant social history, full code Family history: no significant family history Medications and Allergies Allergies Allergy/AdvReac Type Severity Reaction Status Date / Time Sulfa (Sulfonamide Allergy Swelling Verified 08/25/19 17:31 Antibiotics) sulfamethoxazole Allergy Swelling Verified 08/25/19 17:31 [From Bactrim] trimethoprim [From Bactrim] Allergy Swelling Verified 08/25/19 17:31 ziprasidone [From Geodon] Allergy Unknown Verified 08/25/19 17:31 Home Medications Medication Instructions Recorded Confirmed Last Taken Type Azithromycin [Zithromax TAB] 250 mg PO DAILY tablet 01/04/19 Unknown Rx Dextroamphetamine/Amphetamine 60 mg PO DAILY 01/04/19 Unknown Rx [Adderall 20 mg Tablet] QUEtiapine [SEROquel] 200 mg PO QHS #14 tablet 01/04/19 Unknown Rx Amoxicillin [Trimox CAP] 500 mg PO Q8H 10 Days #20 capsule 06/05/19 Unknown Rx Ibuprofen [Motrin 600 MG tab] 600 mg PO Q8H PRN #15 tablet 06/05/19 Unknown Rx Ondansetron [Zofran Odt] 4 mg PO Q8HR PRN #14 tab.rapdis 07/29/19 Unknown Rx Gentamicin 0.3% Ophth Soln 2 drops OP Q4H #5 ml 08/25/19 Unknown Rx Ketorolac Tromethamin 0.4%(Nf) 1 drop OD QID PRN #5 ml 08/25/19 Unknown Rx [Acular Ls 0.4% Ophth Elida] Active Meds: Active Medications Acetaminophen (Tylenol) 650 mg PO Q4H PRN PRN Reason: Pain MILD(1-3)/Fever >100.5/VILLALTA Albuterol (Proventil) 2.5 mg IH Q3HRT PRN PRN Reason: Shortness Of Breath Sodium Chloride (Nacl 0.9% 1000 Ml) 1,000 mls @ 250 mls/hr IV DIRECT RAPHAEL Lorazepam (Ativan) 2 mg IM Q4HR PRN PRN Reason: Agitation Last Admin: 10/24/19 06:59 Dose: 2 mg Documented by: Ondansetron HCl (Zofran) 4 mg IV Q8H PRN PRN Reason: Nausea And Vomiting Sodium Chloride (Sodium Chloride Flush Syringe 10 Ml) 10 ml IV BID RAPHAEL Sodium Chloride (Sodium Chloride Flush Syringe 10 Ml) 10 ml IV PRN PRN PRN Reason: LINE FLUSH Review of Systems ROS unobtainable: due to mental status Exam - Physical Exam Narrative exam: VITAL SIGNS: Reviewed. GENERAL: The patient appears normally developed, sedated but arousable, disheveled appearing vital signs as documented. HEAD: No signs of head trauma. EYES: Pupils are equal. Extraocular motions intact. EARS: Hearing grossly intact. MOUTH: Oropharynx is normal. NECK: No adenopathy, no JVD. CHEST: Chest with clear breath sounds bilaterally. No wheezes, rales, or rhonchi. CARDIAC: Regular rate and rhythm. S1 and S2, without murmurs, gallops, or rubs. VASCULAR: No Edema. Peripheral pulses normal and equal in all extremities. ABDOMEN: Soft, non tender and non distended. No rebound or guarding, and no masses palpated. Bowel Sounds normal. MUSCULOSKELETAL: Good range of motion of all major joints. Extremities without clubbing, cyanosis or edema. NEUROLOGIC EXAM: Awake and oriented no focal sensory or strength deficits. Unable to fully assess. PSYCHIATRIC: Mood elevated SKIN: detail exam as documented in skin assessment - Constitutional Vitals: Temp Pulse Resp BP Pulse Ox 98 F 93 H 10 L 137/97 99 10/24/19 07:00 10/24/19 11:36 10/24/19 11:36 10/24/19 11:36 10/24/19 11:36 Results - Labs CBC & Chem 7: 10/24/19 04:53 10/24/19 04:53 Labs: Laboratory Last Values WBC 8.8 K/mm3 (4.5-11.0) 10/24/19 04:53 RBC 5.29 M/mm3 (3.65-5.03) H 10/24/19 04:53 Hgb 13.8 gm/dl (10.1-14.3) 10/24/19 04:53 Hct 42.3 % (30.3-42.9) 10/24/19 04:53 MCV 80 fl (79-97) 10/24/19 04:53 MCH 26 pg (28-32) L 10/24/19 04:53 MCHC 33 % (30-34) 10/24/19 04:53 RDW 16.3 % (13.2-15.2) H 10/24/19 04:53 Plt Count 508 K/mm3 (140-440) H 10/24/19 04:53 Lymph % (Auto) 23.1 % (13.4-35.0) 10/24/19 04:53 Lares % (Auto) 11.7 % (0.0-7.3) H 10/24/19 04:53 Eos % (Auto) 0.3 % (0.0-4.3) 10/24/19 04:53 Baso % (Auto) 0.6 % (0.0-1.8) 10/24/19 04:53 Lymph # 2.0 K/mm3 (1.2-5.4) 10/24/19 04:53 Lares # 1.0 K/mm3 (0.0-0.8) H 10/24/19 04:53 Eos # 0.0 K/mm3 (0.0-0.4) 10/24/19 04:53 Baso # 0.0 K/mm3 (0.0-0.1) 10/24/19 04:53 Seg Neutrophils % 64.3 % (40.0-70.0) 10/24/19 04:53 Seg Neutrophils # 5.6 K/mm3 (1.8-7.7) 10/24/19 04:53 PT 13.7 Sec. (12.2-14.9) 10/24/19 08:59 INR 1.04 (0.87-1.13) 10/24/19 08:59 APTT 33.6 Sec. (24.2-36.6) 10/24/19 08:59 Sodium 140 mmol/L (137-145) 10/24/19 04:53 Potassium 4.2 mmol/L (3.6-5.0) 10/24/19 04:53 Chloride 99.4 mmol/L (98-107) 10/24/19 04:53 Carbon Dioxide 18 mmol/L (22-30) L 10/24/19 04:53 Anion Gap 27 mmol/L 10/24/19 04:53 BUN 21 mg/dL (7-17) H 10/24/19 04:53 Creatinine 2.2 mg/dL (0.7-1.2) H 10/24/19 04:53 Estimated GFR 30 ml/min 10/24/19 04:53 BUN/Creatinine Ratio 10 % 10/24/19 04:53 Glucose 140 mg/dL (65-100) H 10/24/19 04:53 Lactic Acid 1.10 mmol/L (0.7-2.0) 10/24/19 08:51 Calcium 10.8 mg/dL (8.4-10.2) H 10/24/19 04:53 Magnesium 1.90 mg/dL (1.7-2.3) 10/24/19 04:53 Total Bilirubin 0.50 mg/dL (0.1-1.2) 10/24/19 04:53 AST 81 units/L (5-40) H 10/24/19 04:53 ALT 28 units/L (7-56) 10/24/19 04:53 Alkaline Phosphatase 68 units/L (35-129) 10/24/19 04:53 Lactate Dehydrogenase 386 units/L (91-180) H 10/24/19 04:53 Total Creatine Kinase 4625 units/L (30-135) H 10/24/19 04:53 Total Protein 8.5 g/dL (6.3-8.2) H 10/24/19 04:53 Albumin 5.2 g/dL (3.9-5) H 10/24/19 04:53 Albumin/Globulin Ratio 1.6 % 10/24/19 04:53 TSH 2.070 mlU/mL (0.270-4.200) 10/24/19 04:53 HCG, Quant < 2 mIU/mL (0-4) 10/24/19 04:53 Urine Color Yellow (Yellow) 10/24/19 07:30 Urine Turbidity Cloudy (Clear) 10/24/19 07:30 Urine pH 5.0 (5.0-7.0) 10/24/19 07:30 Ur Specific [place] 1.023 (1.003-1.030) 10/24/19 07:30 Urine Protein 30 mg/dl mg/dL (Negative) 10/24/19 07:30 Urine Glucose (UA) Neg mg/dL (Negative) 10/24/19 07:30 Urine Ketones Tr mg/dL (Negative) 10/24/19 07:30 Urine Blood Mod (Negative) 10/24/19 07:30 Urine Nitrite Neg (Negative) 10/24/19 07:30 Urine Bilirubin Neg (Negative) 10/24/19 07:30 Urine Urobilinogen < 2.0 mg/dL (<2.0) 10/24/19 07:30 Ur Leukocyte Esterase Neg (Negative) 10/24/19 07:30 Urine WBC (Auto) 18.0 /HPF (0.0-6.0) H 10/24/19 07:30 Urine RBC (Auto) 2.0 /HPF (0.0-6.0) 10/24/19 07:30 U Epithel Cells (Auto) 8.0 /HPF (0-13.0) 10/24/19 07:30 Urine Bacteria (Auto) 2+ /HPF (Negative) 10/24/19 07:30 Urine Mucus 1+ /HPF 10/24/19 07:30 Salicylates < 0.3 mg/dL (2.8-20.0) L 10/24/19 04:53 Urine Opiates Screen Presumptive negative 10/24/19 07:30 Urine Methadone Screen Presumptive negative 10/24/19 07:30 Acetaminophen < 5.0 ug/mL (10.0-30.0) L 10/24/19 04:53 Ur Barbiturates Screen Presumptive negative 10/24/19 07:30 Ur Phencyclidine Scrn Presumptive negative 10/24/19 07:30 Ur Amphetamines Screen Presumptive positive 10/24/19 07:30 U Benzodiazepines Scrn Presumptive negative 10/24/19 07:30 Urine Cocaine Screen Presumptive negative 10/24/19 07:30 U Marijuana (THC) Screen Presumptive negative 10/24/19 07:30 Drugs of Abuse Note Disclamer 10/24/19 07:30 Plasma/Serum Alcohol < 0.01 % (0-0.07) 10/24/19 04:53 Assessment and Plan Assessment and plan: Patient is a 39-year-old female with past medical history of HIV, AIDS, hypertension, GERD, polysubstance dependence, bipolar disorder, adult ADHD, on amphetamine therapy, presented to the ER with complaints of persistent sore throat, diffuse body ache pains dry cough shortness of breath lasting for about a month worse in the last 2 days. With difficulty swallowing. Patient also was noted to be incoherent with examination. Patient had been transported to our facility with EMS I do not unfortunately have access to the EMS that at this time. In the ED the patient was noted to have acute rhabdomyolysis and acute kidney injury with also notation of acute psychosis and nonsensical conversation with herself likely hallucination. Upon my attempt to examine the patient the patient was sedated although able to maintain airway. She is currently 1013 for psychosis unable ability to care for herself. No other information is available to me at this time. During her last admission here in December 2018 the patient was noted to have rhabdomyolysis which improved with fluids at that time was also in need of antibiotics. Patient was at that time homicidal and suicidal which is not the case at this time. She was started on Seroquel prior to discharge. CT head:IMPRESSION: 1. No focal mass, hemorrhage, hydrocephalus, or acute, large territorial infarct. Chest x-ray:IMPRESSION: 1. No evidence of acute cardiopulmonary process. Acute psychosis Bipolar disorder Rhabdomyolysis Acute cystitis Acute metabolic encephalopathy likely secondary to amphetamine Acute kidney injury secondary to ATN Upper respiratory infection HIV/AIDS Adult ADHD SIRS without organ dysfunction Plan Admit to medicine Start on aggreessive hydration Continue emperic abx r/o Influenza Pysch consult Monitor electrolytes dvt/gi preet castillo per 1013 protocol Advance Directives: Yes Plan of care discussed with patient/family: Yes
[2019-10-24] MEDS ORDERED: SODIUM CHLORIDE 0.9% 1000 ML 1,000 ML IV SCH (12:15)
[2019-10-24] MEDS ORDERED: dexAMETHasone 20 MG/5 ML VIAL ONE (13:10)
[2019-10-24] MEDS: GENTAMICIN 0.3% OPHTH SOLN 5 ML OU SCH ×2 (17:46→21:31)
[2019-10-24] MEDS: QUEtiapine 200 MG TAB PO SCH (21:31)
[2019-10-25] MEDS: GENTAMICIN 0.3% OPHTH SOLN 5 ML OU SCH ×6 (04:16→21:00)
[2019-10-25 06:14] LABS: Hemoglobin 11.5 gm/dl (10.1-14.3); Mean Corpuscular HGB Conc 32 % (30-34); Mean Corpuscular Volume 81 fl (79-97); Platelet Count 408 K/mm3 (140-440); Red Blood Count 4.47 M/mm3 (3.65-5.03)
[2019-10-25 06:41] LABS: Alanine Aminotransferase 27 units/L (7-56); BUN/Creatinine Ratio 16; Blood Urea Nitrogen 11 mg/dL (7-17); Calcium 9.3 mg/dL (8.4-10.2); Hemolysis Index 0
[2019-10-25] MEDS ORDERED: SODIUM BICARB 8.4% 50 MEQ/50 ML SYRINGE IV NR (08:44)
[2019-10-25] MEDS ORDERED: DEXTROAMPHETAMINE PO SCH (10:00)
[2019-10-25] MEDS ORDERED: AMPHETAMINE PO SCH (10:00)
[2019-10-25] MEDS: cefTRIAXone/NS 1 GM/50 ML 1 GM/50 ML BAG IV SCH (10:29)
--- NOTE | 2019-10-25 16:01 | Consultation ---
History of Present Illness - Reason for Consult Consult date: 10/25/19 Reason for consult: Delirium - Chief Complaint Chief complaint: Delirium - History of Present Psychiatric Illness History of Present Illness: Corine Hidalgo is a 39y/o female patient who states she was admitted because she "took too many pills." During my interview the patient was lying in bed. Asleep. Easily arouses. The patient seemed irritable with my questioning. She was quite evasive, and uncooperative. She is dressed appropriately. She never looks up to talk to me. Sitter is at bedside. She says she's "alright." The patient says "she took too many pills" but says she was not trying to kill herself. She persistently denied SI/HI. She also denies any psych history, although medical records show differently. She denies hallucinations of any kind, and denies any fear of going home. When asked of any drug use, the patient shouted "no." PAST PSYCHIATRIC HISTORY: Diagnoses: Denies Suicide attempts or Self-harm behavior: denies Prior psychiatric hospitalizations: Denies Substance Abuse history: denies Previous psychiatric medications tried: denies Outpatient treatment: denies PAST MEDICAL HISTORY: AIDS, HTN, Bipolar (per chart) Family Psychiatric History None reported or documented SOCIAL HISTORY Marital Status: Single Living Arrangements: with brother Employment Status: employed Access to guns/weapons: Denies Education: 12th History of Abuse: Denies Legal History: Denies REVIEW OF SYSTEMS Constitutional: Negative for weight loss ENT: Negative for stridor Respiratory: Negative for cough or hemoptysis All other systems reviewed and are negative MSE Appearance: In bed. Asleep Behavior: Uncooperative, irritable, evasive Mood: "alright" Affect: consisted with mood Thought Process: goal directed Speech: Normal tone and pace Thought Content Harmfulness Denies SI/HI Hallucinations: patient denies Delusions: none elicited Consciousness: alert. Cognition/Memory: Fair Insight/Judgment: Limited. Assessment: Bipolar Disorder Treatment Plan Medications: -Risperidone 0.5mg po BID -Geodon 10mg IM q4h for agitaion Sitter: Defer to primary team Medical: Per primary team Disposition: The patient does not meet the requirement for acute inpatient psychiatric treatment at this time. Will continue to follow Medications and Allergies Allergies Allergy/AdvReac Type Severity Reaction Status Date / Time Sulfa (Sulfonamide Allergy Swelling Verified 08/25/19 17:31 Antibiotics) sulfamethoxazole Allergy Swelling Verified 08/25/19 17:31 [From Bactrim] trimethoprim [From Bactrim] Allergy Swelling Verified 08/25/19 17:31 ziprasidone [From Geodon] Allergy Unknown Verified 08/25/19 17:31 Home Medications Medication Instructions Recorded Confirmed Last Taken Type Azithromycin [Zithromax TAB] 250 mg PO DAILY tablet 01/04/19 10/24/19 Unknown Rx Dextroamphetamine/Amphetamine 60 mg PO DAILY 01/04/19 10/24/19 Unknown Rx [Adderall 20 mg Tablet] QUEtiapine [SEROquel] 200 mg PO QHS #14 tablet 01/04/19 10/24/19 Unknown Rx Amoxicillin [Trimox CAP] 500 mg PO Q8H 10 Days #20 capsule 06/05/19 10/24/19 Unknown Rx Ibuprofen [Motrin 600 MG tab] 600 mg PO Q8H PRN #15 tablet 06/05/19 10/24/19 Unknown Rx Ondansetron [Zofran Odt] 4 mg PO Q8HR PRN #14 tab.rapdis 07/29/19 10/24/19 Unknown Rx Gentamicin 0.3% Ophth Soln 2 drops OP Q4H #5 ml 08/25/19 10/24/19 Unknown Rx Ketorolac Tromethamin 0.4%(Nf) 1 drop OD QID PRN #5 ml 08/25/19 10/24/19 Unknown Rx [Acular Ls 0.4% Ophth Elida] Active Meds: Active Medications Acetaminophen (Tylenol) 650 mg PO Q4H PRN PRN Reason: Pain MILD(1-3)/Fever >100.5/VILLALTA Albuterol (Proventil) 2.5 mg IH Q3HRT PRN PRN Reason: Shortness Of Breath Gentamicin Sulfate (Gentamicin 0.3% Ophth Soln) 2 drops OU Q4H RAPHAEL Last Admin: 10/25/19 12:59 Dose: 2 drops Documented by: Sodium Chloride (Nacl 0.9% 1000 Ml) 1,000 mls @ 250 mls/hr IV DIRECT RAPHAEL Ceftriaxone Sodium (Rocephin/Ns 1 Gm/50 Ml) 1 gm in 50 mls @ 100 mls/hr IV Q24HR RAPHAEL; Protocol Last Admin: 10/25/19 10:29 Dose: 100 mls/hr Documented by: Lorazepam (Ativan) 2 mg IM Q4HR PRN PRN Reason: Agitation Last Admin: 10/24/19 21:48 Dose: 2 mg Documented by: Miscellaneous Medication (Dextroamphetamine/Amphetamine [Adderall 20 Mg Tablet]) 60 mg PO DAILY [facility] Miscellaneous Medication (Ketorolac Tromethamin 0.4%(Nf)) 1 drop OD QID PRN PRN Reason: Pain , Severe (7-10) Ondansetron HCl (Zofran) 4 mg IV Q8H PRN PRN Reason: Nausea And Vomiting Ondansetron HCl (Zofran Odt) 4 mg PO Q8HR PRN PRN Reason: Nausea And Vomiting Quetiapine Fumarate (Seroquel) 200 mg PO QHS [facility] Last Admin: 10/24/19 21:31 Dose: 200 mg Documented by: Sodium Chloride (Sodium Chloride Flush Syringe 10 Ml) 10 ml IV BID [facility] Last Admin: 10/25/19 10:31 Dose: 10 ml Documented by: Sodium Chloride (Sodium Chloride Flush Syringe 10 Ml) 10 ml IV PRN PRN PRN Reason: LINE FLUSH Mental Status Exam - Vital signs Last Vital Signs Temp 97.4 F L 10/25/19 12:32 Pulse 78 10/25/19 05:59 Resp 18 10/25/19 12:32 BP 109/58 10/25/19 12:32 Pulse Ox 98 10/25/19 05:59 Results Result Diagrams: 10/25/19 05:55 10/25/19 05:55 Abnormal lab results 10/25/19 10/25/19 10/25/19 Range/Units 05:55 05:55 05:55 MCH 26 L (28-32) pg RDW 16.0 H (13.2-15.2) % Chloride 108.5 H (98-107) mmol/L Carbon Dioxide 17 L (22-30) mmol/L Glucose 119 H (65-100) mg/dL AST 55 H (5-40) units/L Total Creatine Kinase 2757 H (30-135) units/L All other labs normal.
[2019-10-25] MEDS ORDERED: ZIPRASIDONE MESYLATE 20 MG VIAL IM PRN (16:16)
--- NOTE | 2019-10-25 17:53 | Progress Note ---
Assessment and Plan Assessment and plan: Patient is a 39-year-old female with past medical history of HIV, AIDS, hypertension, GERD, polysubstance dependence, bipolar disorder, adult ADHD, on amphetamine therapy, presented to the ER with complaints of persistent sore throat, diffuse body ache pains dry cough shortness of breath lasting for about a month worse in the last 2 days. With difficulty swallowing. Patient also was noted to be incoherent with examination. Patient had been transported to our facility with EMS I do not unfortunately have access to the EMS that at this time. In the ED the patient was noted to have acute rhabdomyolysis and acute kidney injury with also notation of acute psychosis and nonsensical conversation with herself likely hallucination. Upon my attempt to examine the patient the patient was sedated although able to maintain airway. She is currently 1013 for psychosis unable ability to care for herself. No other information is available to me at this time. During her last admission here in December 2018 the patient was noted to have rhabdomyolysis which improved with fluids at that time was also in need of antibiotics. Patient was at that time homicidal and suicidal which is not the case at this time. She was started on Seroquel prior to discharge. CT head:IMPRESSION: 1. No focal mass, hemorrhage, hydrocephalus, or acute, large territorial infarct. Chest x-ray:IMPRESSION: 1. No evidence of acute cardiopulmonary process. Acute psychosis Bipolar disorder Rhabdomyolysis Acute cystitis Acute metabolic encephalopathy likely secondary to amphetamine Acute kidney injury secondary to ATN Upper respiratory infection HIV/AIDS Adult ADHD SIRS without organ dysfunction Plan SUPPORTIVE CARE STABLE Started PER PSYCH on -Risperidone 0.5mg po BID -Geodon 10mg IM q4h for agitaion Awaiting psych decision on the 1012 Continue empiric abx r/o Influenza Pysch consult Monitor electrolytes dvt/gi prophy sitter per 1013 protocol History Interval history: Patient seen and examined, resting comfortable Hospitalist Physical - Physical exam Narrative exam: VITAL SIGNS: Reviewed. GENERAL: The patient appears normally developed, hair is unkept vital signs as documented. HEAD: No signs of head trauma. EYES: Pupils are equal. Extraocular motions intact. EARS: Hearing grossly intact. MOUTH: Oropharynx is normal. NECK: No adenopathy, no JVD. CHEST: Chest with clear breath sounds bilaterally. No wheezes, rales, or rhonchi. CARDIAC: Regular rate and rhythm. S1 and S2, without murmurs, gallops, or ru bs. VASCULAR: No Edema. Peripheral pulses normal and equal in all extremities. ABDOMEN: Soft, non tender and non distended. No rebound or guarding, and no masses palpated. Bowel Sounds normal. MUSCULOSKELETAL: Good range of motion of all major joints. Extremities without clubbing, cyanosis or edema. NEUROLOGIC EXAM: Awake and oriented no focal sensory or strength deficits. PSYCHIATRIC: Mood calm SKIN: detail exam as documented in skin assessment - Constitutional Vitals: Temp Pulse Resp BP Pulse Ox 97.4 F L 78 18 109/58 98 10/25/19 12:32 10/25/19 05:59 10/25/19 12:32 10/25/19 12:32 10/25/19 05:59 Results - Labs CBC & Chem 7: 10/25/19 05:55 10/25/19 05:55 Labs: Laboratory Last Values WBC 8.7 K/mm3 (4.5-11.0) 10/25/19 05:55 RBC 4.47 M/mm3 (3.65-5.03) 10/25/19 05:55 Hgb 11.5 gm/dl (10.1-14.3) 10/25/19 05:55 Hct 36.0 % (30.3-42.9) D 10/25/19 05:55 MCV 81 fl (79-97) 10/25/19 05:55 MCH 26 pg (28-32) L 10/25/19 05:55 MCHC 32 % (30-34) 10/25/19 05:55 RDW 16.0 % (13.2-15.2) H 10/25/19 05:55 Plt Count 408 K/mm3 (140-440) 10/25/19 05:55 Lymph % (Auto) 23.1 % (13.4-35.0) 10/24/19 04:53 [place] % (Auto) 11.7 % (0.0-7.3) H 10/24/19 04:53 Eos % (Auto) 0.3 % (0.0-4.3) 10/24/19 04:53 Baso % (Auto) 0.6 % (0.0-1.8) 10/24/19 04:53 Lymph # 2.0 K/mm3 (1.2-5.4) 10/24/19 04:53 [place] # 1.0 K/mm3 (0.0-0.8) H 10/24/19 04:53 Eos # 0.0 K/mm3 (0.0-0.4) 10/24/19 04:53 Baso # 0.0 K/mm3 (0.0-0.1) 10/24/19 04:53 Seg Neutrophils % 64.3 % (40.0-70.0) 10/24/19 04:53 Seg Neutrophils # 5.6 K/mm3 (1.8-7.7) 10/24/19 04:53 PT 13.7 Sec. (12.2-14.9) 10/24/19 08:59 INR 1.04 (0.87-1.13) 10/24/19 08:59 APTT 33.6 Sec. (24.2-36.6) 10/24/19 08:59 Sodium 141 mmol/L (137-145) 10/25/19 05:55 Potassium 4.4 mmol/L (3.6-5.0) 10/25/19 05:55 Chloride 108.5 mmol/L (98-107) H 10/25/19 05:55 Carbon Dioxide 17 mmol/L (22-30) L 10/25/19 05:55 Anion Gap 20 mmol/L 10/25/19 05:55 BUN 11 mg/dL (7-17) 10/25/19 05:55 Creatinine 0.7 mg/dL (0.7-1.2) D 10/25/19 05:55 Estimated GFR > 60 ml/min 10/25/19 05:55 BUN/Creatinine Ratio 16 % 10/25/19 05:55 Glucose 119 mg/dL (65-100) H 10/25/19 05:55 Lactic Acid 1.10 mmol/L (0.7-2.0) 10/24/19 08:51 Calcium 9.3 mg/dL (8.4-10.2) 10/25/19 05:55 Magnesium 1.90 mg/dL (1.7-2.3) 10/24/19 04:53 Total Bilirubin 0.30 mg/dL (0.1-1.2) 10/25/19 05:55 AST 55 units/L (5-40) H 10/25/19 05:55 ALT 27 units/L (7-56) 10/25/19 05:55 Alkaline Phosphatase 54 units/L (35-129) 10/25/19 05:55 Ammonia 36.0 umol/L (25-60) 10/25/19 08:56 Lactate Dehydrogenase 386 units/L (91-180) H 10/24/19 04:53 Total Creatine Kinase 2757 units/L (30-135) H 10/25/19 05:55 Total Protein 7.2 g/dL (6.3-8.2) 10/25/19 05:55 Albumin 4.0 g/dL (3.9-5) 10/25/19 05:55 Albumin/Globulin Ratio 1.3 % 10/25/19 05:55 TSH 2.070 mlU/mL (0.270-4.200) 10/24/19 04:53 HCG, Quant < 2 mIU/mL (0-4) 10/24/19 04:53 Urine Color Yellow (Yellow) 10/24/19 07:30 Urine Turbidity Cloudy (Clear) 10/24/19 07:30 Urine pH 5.0 (5.0-7.0) 10/24/19 07:30 Ur Specific [place] 1.023 (1.003-1.030) 10/24/19 07:30 Urine Protein 30 mg/dl mg/dL (Negative) 10/24/19 07:30 Urine Glucose (UA) Neg mg/dL (Negative) 10/24/19 07:30 Urine Ketones Tr mg/dL (Negative) 10/24/19 07:30 Urine Blood Mod (Negative) 10/24/19 07:30 Urine Nitrite Neg (Negative) 10/24/19 07:30 Urine Bilirubin Neg (Negative) 10/24/19 07:30 Urine Urobilinogen < 2.0 mg/dL (<2.0) 10/24/19 07:30 Ur Leukocyte Esterase Neg (Negative) 10/24/19 07:30 Urine WBC (Auto) 18.0 /HPF (0.0-6.0) H 10/24/19 07:30 Urine RBC (Auto) 2.0 /HPF (0.0-6.0) 10/24/19 07:30 U Epithel Cells (Auto) 8.0 /HPF (0-13.0) 10/24/19 07:30 Urine Bacteria (Auto) 2+ /HPF (Negative) 10/24/19 07:30 Urine Mucus 1+ /HPF 10/24/19 07:30 Salicylates < 0.3 mg/dL (2.8-20.0) L 10/24/19 04:53 Urine Opiates Screen Presumptive negative 10/24/19 07:30 Urine Methadone Screen Presumptive negative 10/24/19 07:30 Acetaminophen < 5.0 ug/mL (10.0-30.0) L 10/24/19 04:53 Ur Barbiturates Screen Presumptive negative 10/24/19 07:30 Ur Phencyclidine Scrn Presumptive negative 10/24/19 07:30 Ur Amphetamines Screen Presumptive positive 10/24/19 07:30 U Benzodiazepines Scrn Presumptive negative 10/24/19 07:30 Urine Cocaine Screen Presumptive negative 10/24/19 07:30 U Marijuana (THC) Screen Presumptive negative 10/24/19 07:30 Drugs of Abuse Note Disclamer 10/24/19 07:30 Plasma/Serum Alcohol < 0.01 % (0-0.07) 10/24/19 04:53 Active Medications - Current Medications Current Medications: Generic Name Dose Route Start Last Admin Trade Name Freq PRN Reason Stop Dose Admin Acetaminophen 650 mg 10/24/19 12:05 Tylenol PO Q4H PRN Pain MILD(1-3)/Fever >100.5/VILLALTA Albuterol 2.5 mg 10/24/19 12:05 Proventil IH Q3HRT PRN Shortness Of Breath Gentamicin Sulfate 2 drops 10/24/19 13:00 10/25/19 16:58 Gentamicin 0.3% Ophth Soln OU 2 drops Q4H RAPHAEL Administration Sodium Chloride 1,000 mls @ 250 mls/hr 10/24/19 12:15 Nacl 0.9% 1000 Ml IV DIRECT RAPHAEL Ceftriaxone Sodium 1 gm in 50 mls @ 100 mls/hr 10/25/19 10:00 10/25/19 10:29 Rocephin/Ns 1 Gm/50 Ml IV 100 mls/hr Q24HR RAPHAEL Administration Protocol Lorazepam 2 mg 10/24/19 06:50 10/24/19 21:48 Ativan IM 2 mg Q4HR PRN Administration Agitation Miscellaneous Medication 60 mg 10/25/19 10:00 Dextroamphetamine/Amphetamine [Adderall 20 Mg Tablet] PO DAILY RAPHAEL Miscellaneous Medication 1 drop 10/24/19 12:08 Ketorolac Tromethamin 0.4%(Nf) OD QID PRN Pain , Severe (7-10) Ondansetron HCl 4 mg 10/24/19 12:05 Zofran IV Q8H PRN Nausea And Vomiting Ondansetron HCl 4 mg 10/24/19 12:08 Zofran Odt PO Q8HR PRN Nausea And Vomiting Quetiapine Fumarate 200 mg 10/24/19 22:00 10/24/19 21:31 Seroquel PO 200 mg QHS RAPHAEL Administration Risperidone 0.5 mg 10/25/19 22:00 Risperdal PO BID RAPHAEL Sodium Chloride 10 ml 10/24/19 22:00 10/25/19 10:31 Sodium Chloride Flush Syringe 10 Ml IV 10 ml BID RAPHAEL Administration Sodium Chloride 10 ml 10/24/19 12:05 Sodium Chloride Flush Syringe 10 Ml IV PRN PRN LINE FLUSH Ziprasidone 10 mg 10/25/19 16:16 Geodon IM Q4H PRN Agitation
[2019-10-25] MEDS: QUEtiapine 200 MG TAB PO SCH (22:02)
[2019-10-25] MEDS: risperiDONE 0.25 MG TAB PO SCH (22:02)
[2019-10-25] MEDS: ONDANSETRON 4 MG ODT TAB PO PRN (23:02)
[2019-10-26] MEDS: GENTAMICIN 0.3% OPHTH SOLN 5 ML OU SCH ×5 (01:00→17:47)
[2019-10-26] MEDS: ONDANSETRON 4 MG ODT TAB PO PRN (08:16)
--- NOTE | 2019-10-26 10:59 | Discharge Summary ---
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 With difficulty swallowing. Patient also was noted to be incoherent with examination. Patient had been transported to our facility with EMS I do not unfortunately have access to the EMS that at this time. In the ED the patient was noted to have acute rhabdomyolysis and acute kidney injury with also notation of acute psychosis and nonsensical conversation with herself likely hallucination. Upon my attempt to examine the patient the patient was sedated although able to maintain airway. She is currently 1013 for psychosis unable ability to care for herself. No other information is available to me at this time. During her last admission here in December 2018 the patient was noted to have rhabdomyolysis which improved with fluids at that time was also in need of antibiotics. Patient was at that time homicidal and suicidal which is not the case at this time. She was started on Seroquel prior to discharge. CT head:IMPRESSION: 1. No focal mass, hemorrhage, hydrocephalus, or acute, large territorial infarct. Chest x-ray:IMPRESSION: 1. No evidence of acute cardiopulmonary process. Patients mental status improved. Evaluated by psych and meds adjusted 1013 Discontinued, patient denies suicidal ideation Rhabdomylysis improved Will discharge patient on risperidone Acute psychosis Bipolar disorder Rhabdomyolysis Acute cystitis Acute metabolic encephalopathy likely secondary to amphetamine Acute kidney injury secondary to ATN Upper respiratory infection HIV/AIDS Adult ADHD SIRS without organ dysfunction Disposition: DC-01 TO HOME OR SELFCARE Time spent for discharge: 35 mins Core Measure Documentation - Palliative Care Palliative Care/ Comfort Measures: Not Applicable - Core Measures Any of the following diagnoses?: none Exam - Physical Exam Narrative exam: VITAL SIGNS: Reviewed. GENERAL: The patient appears normally developed, hair is unkept vital signs as documented. HEAD: No signs of head trauma. EYES: Pupils are equal. Extraocular motions intact. EARS: Hearing grossly intact. MOUTH: Oropharynx is normal. NECK: No adenopathy, no JVD. CHEST: Chest with clear breath sounds bilaterally. No wheezes, rales, or rhonc hi. CARDIAC: Regular rate and rhythm. S1 and S2, without murmurs, gallops, or rubs. VASCULAR: No Edema. Peripheral pulses normal and equal in all extremities. ABDOMEN: Soft, non tender and non distended. No rebound or guarding, and no masses palpated. Bowel Sounds normal. MUSCULOSKELETAL: Good range of motion of all major joints. Extremities without clubbing, cyanosis or edema. NEUROLOGIC EXAM: Awake and oriented no focal sensory or strength deficits. PSYCHIATRIC: Mood calm SKIN: detail exam as documented in skin assessment - Constitutional Vitals: Temp Pulse Resp BP Pulse Ox 98.2 F 69 16 110/54 98 10/26/19 05:06 10/26/19 05:06 10/26/19 05:06 10/26/19 05:06 10/26/19 05:06 Plan Activity: advance as tolerated, fall precautions Diet: low fat, low salt Special Instructions: record daily weights, record daily BP diary, other (STAY HYDRATED) Additional Instructions: FOLLOW WITH PSYCH Follow up with: PRIMARY CARE, [Primary Care Provider] - 3-5 Days [facility] Prescriptions: Loperamide [Imodium] 2 mg PO Q2H PRN #14 capsule PRN Reason: Diarrhea risperiDONE [RisperDAL] 0.5 mg PO BID #60 tablet
[2019-10-26] MEDS ORDERED: LOPERAMIDE 2 MG CAP PO PRN (11:00)
[2019-10-26] MEDS ORDERED: PANTOPRAZOLE 40 MG INJ IV SCH (11:00)
[2019-10-26] MEDS: risperiDONE 0.25 MG TAB PO SCH (11:57)
[2019-10-26] MEDS: cefTRIAXone/NS 1 GM/50 ML 1 GM/50 ML BAG IV SCH (11:58)
[2019-10-26 14:33] VITALS: BP 92/53
== END 2019-10-26 18:38 | disposition home or self-care (01) | DRG 91 ==
LOC: ED 22:51 → 3A 10-24 12:06
PROVIDERS: ADMIT Internal Medicine; ATTEND Internal Medicine
PROC: 00JU3ZZ Inspection of Spinal Canal, Percutaneous Approach (ICD-10-PCS; principal; 2019-10-24)
DX: G92 Toxic encephalopathy (principal); B20 Human immunodeficiency virus [HIV] disease; N17.0 Acute kidney failure with tubular necrosis; T43.625A Adverse effect of amphetamines, initial encounter; Y92.89 Other specified places as the place of occurrence of the external cause; M62.82 Rhabdomyolysis; E87.2 Acidosis; R65.10 Systemic inflammatory response syndrome (SIRS) of non-infectious origin without acute organ dysfunction; I10 Essential (primary) hypertension; K21.9 Gastro-esophageal reflux disease without esophagitis; F31.9 Bipolar disorder, unspecified; F23 Brief psychotic disorder; N30.00 Acute cystitis without hematuria; F90.9 Attention-deficit hyperactivity disorder, unspecified type; Z98.51 Tubal ligation status
CPT/HCPCS: 36415; 70450; 71046; 71250; 80048; 80053; 80307; 80320; 81001; 82140; 82550; 83615; 83735; 84443; 84702; 85025; 85027; 85610; 85730; 87040; 87086; 93005; 93010; G0378; G0480; J0133; J0696; J1100; J1200; J1630; J2060; J2704; J3370; J3486; J7030; J7050; Q0162

== ENCOUNTER 2020-02-17 19:28 | Emergency (ER) | payer MEDICAID ==
[2020-02-17 19:32] VITALS: BP 158/106
--- NOTE | 2020-02-17 19:48 | Emergency Department Report ---
ED Eye Problem HPI - General Chief complaint: Eye Problems Stated complaint: LT PINK EYE Time Seen by Provider: 02/17/20 19:43 Source: patient Mode of arrival: Ambulatory Limitations: No Limitations - History of Present Illness Initial comments: pt is a 39 yo female who presents to the ED with c/o left sided eye irritation that began yesterday. she states she has associated drainage from the eye, watering from the eye, eyelash matting. she denies getting anything into the eye. she denies any vision changes. she denies contact lens use. she denies be ing in contact with anyone with the same symptoms. pt denies any allergies. she denies any HI/SI/hallucinations. - Related Data Previous Rx's Medication Instructions Recorded Last Taken Type Dextroamphetamine/Amphetamine 60 mg PO DAILY 01/04/19 Unknown Rx [Adderall 20 mg Tablet] QUEtiapine [SEROquel] 200 mg PO QHS #14 tablet 01/04/19 Unknown Rx Ondansetron [Zofran ODT TAB] 4 mg PO Q8HR PRN #14 tab.rapdis 07/29/19 Unknown Rx Gentamicin 0.3% Ophth Soln 2 drops OP Q4H #5 ml 08/25/19 Unknown Rx Ketorolac Tromethamin 0.4%(Nf) 1 drop OD QID PRN #5 ml 08/25/19 Unknown Rx [Acular Ls 0.4% Ophth Elida] Loperamide [Imodium] 2 mg PO Q2H PRN #14 capsule 10/26/19 Unknown Rx risperiDONE [RisperDAL] 0.5 mg PO BID #60 tablet 10/26/19 Unknown Rx Erythromycin [Erythromycin Ophth 1 applicatio OS ONCE 7 Days #1 tube 02/17/20 Unknown Rx Oint] Ofloxacin 0.3% [Ocuflox 0.3% opth] 2 drops OS QID 7 Days #1 bottle 02/17/20 Unknown Rx Allergies Allergy/AdvReac Type Severity Reaction Status Date / Time Sulfa (Sulfonamide Allergy Swelling Verified 08/25/19 17:31 Antibiotics) sulfamethoxazole Allergy Swelling Verified 08/25/19 17:31 [From Bactrim] trimethoprim [From Bactrim] Allergy Swelling Verified 08/25/19 17:31 ziprasidone [From Geodon] Allergy Unknown Verified 08/25/19 17:31 ED Review of Systems ROS: Stated complaint: LT PINK EYE Other details as noted in HPI Comment: All other systems reviewed and negative ED Past Medical Hx - Past Medical History Previous Medical History?: Yes Hx Hypertension: No Hx Psychiatric Treatment: Yes (PTSD, BIPOLAR, ADHD,anxiety) Hx Asthma: No Hx HIV: Yes (Last CD4 800's 07/19/2019) Additional medical history: ezcema - Surgical History Past Surgical History?: Yes Hx Coronary Stent: No Additional Surgical History: D&C. breast implants. wisdom teeth removed. tubal ligation - Social History Smoking Status: Never Smoker Substance Use Type: None - Medications Home Medications: Home Medications Medication Instructions Recorded Confirmed Last Taken Type Dextroamphetamine/Amphetamine 60 mg PO DAILY 01/04/19 10/24/19 Unknown Rx [Adderall 20 mg Tablet] QUEtiapine [SEROquel] 200 mg PO QHS #14 tablet 01/04/19 10/24/19 Unknown Rx Ondansetron [Zofran ODT TAB] 4 mg PO Q8HR PRN #14 tab.rapdis 07/29/19 10/24/19 Unknown Rx Gentamicin 0.3% Ophth Soln 2 drops OP Q4H #5 ml 08/25/19 10/24/19 Unknown Rx Ketorolac Tromethamin 0.4%(Nf) 1 drop OD QID PRN #5 ml 08/25/19 10/24/19 Unknown Rx [Acular Ls 0.4% Ophth Elida] Loperamide [Imodium] 2 mg PO Q2H PRN #14 capsule 10/26/19 Unknown Rx risperiDONE [RisperDAL] 0.5 mg PO BID #60 tablet 10/26/19 Unknown Rx Erythromycin [Erythromycin Ophth 1 applicatio OS ONCE 7 Days #1 tube 02/17/20 Unknown Rx Oint] Ofloxacin 0.3% [Ocuflox 0.3% opth] 2 drops OS QID 7 Days #1 bottle 02/17/20 Unknown Rx ED Physical Exam - General Limitations: No Limitations General appearance: alert, in no apparent distress - Head Head exam: Present: atraumatic, normocephalic - Eye Eye exam: Present: PERRL, EOMI, conjunctival injection (left), other (very small white chilkat shaped ulceration present to the left eye). Absent: periorbital swelling, periorbital tenderness - ENT ENT exam: Present: mucous membranes moist - Neurological Exam Neurological exam: Present: alert, oriented X3 - Psychiatric Psychiatric exam: Present: normal affect, normal mood - Skin Skin exam: Present: warm, dry ED Course Vital Signs 02/17/20 02/17/20 19:31 20:38 Temperature 98.7 F Pulse Rate 118 H 98 H Respiratory 18 Rate Blood Pressure 158/106 O2 Sat by Pulse 97 Oximetry ED Medical Decision Making - Medical Decision Making pt is a 39 yo female who presents to the ED with c/o left sided eye irritation that began yesterday. she states she has associated drainage from the eye, water ing from the eye, eyelash matting. she denies getting anything into the eye. she denies any vision changes. she denies contact lens use. she denies being in contact with anyone with the same symptoms. pt denies any allergies, I asked her if she was allergic to the medications that were present in the chart, she replied "no". she denies any HI/SI/hallucinations. Initial vitals with tachycardia which improved to normal upon repeat. Blood pressure is mildly elevated, will have patient follow-up with her primary care doctor for blood pressure monitoring. I asked patient if she had contact lens in and she said no. When I went to examine patient's eyes for evaluation, she very obviously had colored contact lenses in. I asked patient to please wash her hands and remove the contact lens so I could appropriately examine her eyes. Patient then said to me "I should slap this bitch." Because I asked her to remove the contact lenses so I could appropriately access her pupils and iris. pt was very unpleasant, very argumentative, and rude during entire encounter from the moment I walked into the exam room. on exam: very small white chilkat shaped ulceration present to the left eye, left conjunctival injection, no periorbital tenderness or swelling, EOMI, PERRL. Patient given prescription for erythromycin ophthalmic ointment and ofloxacin drops. advised pt Please use medication as prescribed. Please wash your hands frequently and wash them before putting in the medication. Please wait 1 hour between medications. Wash your hands frequently. Please follow-up with an business services associate in the next 24 hours. It is very important that you follow-up to prevent further infection or blindness. Return to the emergency room for any new or worsening symptoms. Critical care attestation.: If time is entered above; I have spent that time in minutes in the direct care of this critically ill patient, excluding procedure time. ED Disposition Clinical Impression: Conjunctivitis Qualifiers: Conjunctivitis type: acute Acute conjunctivitis type: unspecified Laterality: left Qualified Code(s): H10.32 - Unspecified acute conjunctivitis, left eye Corneal ulcer Qualifiers: Laterality: left Qualified Code(s): H16.002 - Unspecified corneal ulcer, left eye Disposition: DC- TO HOME OR SELFCARE Is pt being admited?: No Does the pt Need Aspirin: No Condition: Stable Instructions: Conjunctivitis (ED), Corneal Ulcer (ED) Additional Instructions: Please use medication as prescribed. Please wash your hands frequently and wash them before putting in the medication. Please wait 1 hour between medications. Wash your hands frequently. Please follow-up with an business services associate in the next 24 hours. It is very important that you follow-up to prevent further infection or blindness. Return to the emergency room for any new or worsening symptoms. Prescriptions: Erythromycin [Erythromycin Ophth Oint] 1 applicatio OS ONCE 7 Days #1 tube Ofloxacin 0.3% [Ocuflox 0.3% opth] 2 drops OS QID 7 Days #1 bottle Referrals: [facility] [Provider Group] - 24 Hours RAYSA RENNER MD [Staff Physician] - 24 Hours Time of Disposition: 19:49 Print Language: FAROESE
== END 2020-02-17 20:40 | disposition home or self-care (01) ==
LOC: ED 19:28
DX: H16.002 Unspecified corneal ulcer, left eye (principal); H10.32 Unspecified acute conjunctivitis, left eye; F41.9 Anxiety disorder, unspecified; F31.9 Bipolar disorder, unspecified; F90.9 Attention-deficit hyperactivity disorder, unspecified type; Z88.2 Allergy status to sulfonamides; Z88.8 Allergy status to other drugs, medicaments and biological substances; Z79.899 Other long term (current) drug therapy; Z21 Asymptomatic human immunodeficiency virus [HIV] infection status; Z98.890 Other specified postprocedural states; Z98.51 Tubal ligation status
CPT/HCPCS: 99282

== ENCOUNTER 2020-02-27 04:55 | Emergency (ER) | payer MEDICAID ==
[2020-02-27 05:48] LABS: Bilirubin,Urine NEG (Negative); Blood,Urine MOD (Negative); Color,Urine Colorless (Yellow); Protein,Urine <15 mg/dL mg/dL (Negative); Urobilinogen,Urine < 2.0 mg/dL (<2.0); WBC,Urine < 1.0 /HPF (0.0-6.0)
[2020-02-27 05:53] LABS: Basophils % (Auto) 0.9 % (0.0-1.8); Eosinophils # (Auto) 0.1 K/mm3 (0.0-0.4); Eosinophils % (Auto) 2.1 % (0.0-4.3); Hematocrit 36.2 % (30.3-42.9); Hemoglobin 11.7 gm/dl (10.1-14.3); Lymphocytes # (Auto) 1.4 K/mm3 (1.2-5.4); Mean Corpuscular HGB Conc 32 % (30-34); Mean Corpuscular Volume 81 fl (79-97); Monocytes # (Auto) 0.4 K/mm3 (0.0-0.8); Monocytes % (Auto) 10.3 % (0.0-7.3); Platelet Count 386 K/mm3 (140-440); Red Blood Count 4.47 M/mm3 (3.65-5.03); Red Cell Distribution Width 17.2 % (13.2-15.2)
[2020-02-27 06:01] LABS: Alanine Aminotransferase 17 units/L (7-56); BUN/Creatinine Ratio 10; Blood Urea Nitrogen 6 mg/dL (7-17); Calcium 9.4 mg/dL (8.4-10.2); Hemolysis Index 5
[2020-02-27] MEDS ORDERED: HYDROcodone/ACETAMINOPHEN 5-325 MG TAB PO ONE (07:37)
--- NOTE | 2020-02-27 07:37 | Emergency Department Report ---
ED Abdominal Pain HPI - General Chief Complaint: Abdominal Pain Stated Complaint: LOWER ABD PAIN, SCRATCHY THROAT Time Seen by Provider: 02/27/20 07:33 Source: patient Mode of arrival: Ambulatory Limitations: No Limitations - History of Present Illness Initial Comments: Patient is a 39-year-old -[place] female who comes to the ER with complaints of menstrual cramps. I have found the patient waiting for provider at 07 100. Labs have been noted as ordered by overnight PATSY -: Gradual, days(s) Quality: cramping Associated Symptoms: denies other symptoms - Related Data Previous Rx's Medication Instructions Recorded Last Taken Type Dextroamphetamine/Amphetamine 60 mg PO DAILY 01/04/19 Unknown Rx [Adderall 20 mg Tablet] QUEtiapine [SEROquel] 200 mg PO QHS #14 tablet 01/04/19 Unknown Rx Gentamicin 0.3% Ophth Soln 2 drops OP Q4H #5 ml 08/25/19 Unknown Rx Loperamide [Imodium] 2 mg PO Q2H PRN #14 capsule 10/26/19 Unknown Rx risperiDONE [RisperDAL] 0.5 mg PO BID #60 tablet 10/26/19 Unknown Rx Erythromycin [Erythromycin Ophth 1 applicatio OS ONCE 7 Days #1 tube 02/17/20 Unknown Rx Oint] Ofloxacin 0.3% [Ocuflox 0.3% opth] 2 drops OS QID 7 Days #1 bottle 02/17/20 Unknown Rx Cetirizine HCl [ZyrTEC] 10 mg PO DAILY #30 capsule 02/27/20 Unknown Rx Ketorolac Tromethamin 0.4%(Nf) 1 drop OD QID PRN #5 ml 02/27/20 Unknown Rx [Acular Ls 0.4% Ophth Elida] Triamcinolone Acetonide 60 ml TP BID #1 lotion 02/27/20 Unknown Rx [Triamcinolone 0.1% LOTION] traMADoL [Ultram] 50 mg PO Q6HR PRN #10 tablet 02/27/20 Unknown Rx Allergies Allergy/AdvReac Type Severity Reaction Status Date / Time Sulfa (Sulfonamide Allergy Swelling Verified 02/27/20 05:15 Antibiotics) sulfamethoxazole Allergy Swelling Verified 02/27/20 05:15 [From Bactrim] trimethoprim [From Bactrim] Allergy Swelling Verified 02/27/20 05:15 ziprasidone [From Geodon] Allergy Unknown Verified 02/27/20 05:15 ED Review of Systems ROS: Stated complaint: LOWER ABD PAIN, SCRATCHY THROAT Other details as noted in HPI Comment: All other systems reviewed and negative ED Past Medical Hx - Past Medical History Hx Hypertension: No Hx Psychiatric Treatment: Yes (PTSD, BIPOLAR, ADHD,anxiety) Hx Asthma: No Hx HIV: Yes (Last CD4 800's 07/19/2019) Additional medical history: ezcema - Surgical History Hx Coronary Stent: No Additional Surgical History: D&C. breast implants. wisdom teeth removed. tubal ligation - Social History Smoking Status: Never Smoker Substance Use Type: None - Medications Home Medications: Home Medications Medication Instructions Recorded Confirmed Last Taken Type Dextroamphetamine/Amphetamine 60 mg PO DAILY 01/04/19 10/24/19 Unknown Rx [Adderall 20 mg Tablet] QUEtiapine [SEROquel] 200 mg PO QHS #14 tablet 01/04/19 10/24/19 Unknown Rx Gentamicin 0.3% Ophth Soln 2 drops OP Q4H #5 ml 08/25/19 10/24/19 Unknown Rx Loperamide [Imodium] 2 mg PO Q2H PRN #14 capsule 10/26/19 Unknown Rx risperiDONE [RisperDAL] 0.5 mg PO BID #60 tablet 10/26/19 Unknown Rx Erythromycin [Erythromycin Ophth 1 applicatio OS ONCE 7 Days #1 tube 02/17/20 Unknown Rx Oint] Ofloxacin 0.3% [Ocuflox 0.3% opth] 2 drops OS QID 7 Days #1 bottle 02/17/20 Unknown Rx Cetirizine HCl [ZyrTEC] 10 mg PO DAILY #30 capsule 02/27/20 Unknown Rx Ketorolac Tromethamin 0.4%(Nf) 1 drop OD QID PRN #5 ml 02/27/20 Unknown Rx [Acular Ls 0.4% Ophth Elida] Triamcinolone Acetonide 60 ml TP BID #1 lotion 02/27/20 Unknown Rx [Triamcinolone 0.1% LOTION] traMADoL [Ultram] 50 mg PO Q6HR PRN #10 tablet 02/27/20 Unknown Rx ED Physical Exam - General Limitations: No Limitations General appearance: alert, in no apparent distress - Head Head exam: Present: atraumatic, normocephalic - Eye Eye exam: Present: normal appearance - ENT ENT exam: Present: mucous membranes moist - Neck Neck exam: Present: normal inspection - Respiratory Respiratory exam: Present: normal lung sounds bilaterally. Absent: respiratory distress - Cardiovascular Cardiovascular Exam: Present: regular rate, normal rhythm. Absent: systolic murmur, diastolic murmur, rubs, gallop - GI/Abdominal GI/Abdominal exam: Present: soft, normal bowel sounds - Extremities Exam Extremities exam: Present: normal inspection - Back Exam Back exam: Present: normal inspection - Neurological Exam Neurological exam: Present: alert, oriented X3 - Psychiatric Psychiatric exam: Present: normal affect, normal mood - Skin Skin exam: Present: warm, dry, intact, normal color, other (eczema on left arm; no infection ). Absent: rash ED Course - Reevaluation(s) Reevaluation #1: 02/27/20 VS normal as documented by RN on paper work. ED Medical Decision Making - Lab Data Result diagrams: 02/27/20 05:23 02/27/20 05:23 - Medical Decision Making Lab Results 02/27/20 02/27/20 02/27/20 Range/Units 05:23 05:23 Unknown WBC 3.7 L (4.5-11.0) K/mm3 RBC 4.47 (3.65-5.03) M/mm3 Hgb 11.7 (10.1-14.3) gm/dl Hct 36.2 (30.3-42.9) % MCV 81 (79-97) fl MCH 26 L (28-32) pg MCHC 32 (30-34) % RDW 17.2 H (13.2-15.2) % Plt Count 386 (140-440) K/mm3 Lymph % (Auto) 39.0 H (13.4-35.0) % [place] % (Auto) 10.3 H (0.0-7.3) % Eos % (Auto) 2.1 (0.0-4.3) % Baso % (Auto) 0.9 (0.0-1.8) % Lymph # 1.4 (1.2-5.4) K/mm3 [place] # 0.4 (0.0-0.8) K/mm3 Eos # 0.1 (0.0-0.4) K/mm3 Baso # 0.0 (0.0-0.1) K/mm3 Seg Neutrophils % 47.7 (40.0-70.0) % Seg Neutrophils # 1.7 L (1.8-7.7) K/mm3 Sodium 142 (137-145) mmol/L Potassium 4.4 (3.6-5.0) mmol/L Chloride 102.4 (98-107) mmol/L Carbon Dioxide 27 (22-30) mmol/L Anion Gap 17 mmol/L BUN 6 L (7-17) mg/dL Creatinine 0.6 L (0.7-1.2) mg/dL Estimated GFR > 60 ml/min BUN/Creatinine Ratio 10 % Glucose 104 H (65-100) mg/dL Calcium 9.4 (8.4-10.2) mg/dL Total Bilirubin < 0.20 (0.1-1.2) mg/dL AST 23 (5-40) units/L ALT 17 (7-56) units/L Alkaline Phosphatase 71 (35-129) units/L Total Protein 6.7 (6.3-8.2) g/dL Albumin 4.0 (3.9-5) g/dL Albumin/Globulin Ratio 1.5 % Urine Color Colorless (Yellow) Urine Turbidity Clear (Clear) Urine pH 8.0 H (5.0-7.0) Ur Specific [place] 1.009 (1.003-1.030) Urine Protein <15 mg/dl (Negative) mg/dL Urine Glucose (UA) Neg (Negative) mg/dL Urine Ketones Neg (Negative) mg/dL Urine Blood Mod (Negative) Urine Nitrite Neg (Negative) Urine Bilirubin Neg (Negative) Urine Urobilinogen < 2.0 (<2.0) mg/dL Ur Leukocyte Esterase Neg (Negative) Urine WBC (Auto) < 1.0 (0.0-6.0) /HPF Urine RBC (Auto) 1.0 (0.0-6.0) /HPF U Epithel Cells (Auto) 1.0 (0-13.0) /HPF Labs noted. UA noted. Patient has had a tubal ligation. She states since that time she has had painful menses. That is why she came to the ER today. On my exam patient states that she needs a refill on her skin cream for her eczema and an allergy medicine refill. 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 - Differential Diagnosis ro uti Critical care attestation.: If time is entered above; I have spent that time in minutes in the direct care of this critically ill patient, excluding procedure time. ED Disposition Clinical Impression: Menstrual cramp, Seasonal allergies, Eczema, Medication refill Disposition: TO HOME OR SELFCARE Is pt being admited?: No Does the pt Need Aspirin: No Condition: Stable Prescriptions: Ketorolac Tromethamin 0.4%(Nf) [Acular Ls 0.4% Ophth Elida] 1 drop OD QID PRN #5 ml PRN Reason: Pain , Severe (7-10) Triamcinolone Acetonide [Triamcinolone 0.1% LOTION] 60 ml TP BID #1 lotion traMADoL [Ultram] 50 mg PO Q6HR PRN #10 tablet PRN Reason: Pain Cetirizine HCl [ZyrTEC] 10 mg PO DAILY #30 capsule Referrals: ALLAN MCCARTY MD [Staff Physician] - 3-5 Days Time of Disposition: 07:40
== END 2020-02-27 07:54 | disposition home or self-care (01) ==
LOC: ED 04:55
DX: N94.6 Dysmenorrhea, unspecified (principal); J30.2 Other seasonal allergic rhinitis; L30.9 Dermatitis, unspecified; F43.10 Post-traumatic stress disorder, unspecified; F41.9 Anxiety disorder, unspecified; F31.9 Bipolar disorder, unspecified; Z76.0 Encounter for issue of repeat prescription; Z79.899 Other long term (current) drug therapy; Z88.2 Allergy status to sulfonamides; Z88.8 Allergy status to other drugs, medicaments and biological substances
CPT/HCPCS: 36415; 80053; 81001; 85025; 99283

== ENCOUNTER 2020-05-22 01:36 | Emergency (ER) | payer MEDICAID ==
--- NOTE | 2020-05-22 06:00 | Emergency Department Report ---
ED General Adult HPI - General Chief complaint: Dental/Oral Stated complaint: PANIC ATTACK TOOTH PAIN Source: patient Mode of arrival: Ambulatory Limitations: No Limitations - History of Present Illness Initial comments: Patient is a 39-year-old -[place]one[place] female with a history of chronic recurrent dental abscesses, HIV, PTSD, ADHD, anxiety and depression who presents to the ED with acute exacerbation of her chronic dental pain characterized by left maxillary premolar and molar toothache with swollen gums for the last 1 week, worse in the last 2 days. Patient denies dizziness, syncope, chest pain, shortness of breath, nausea and vomiting, sore throat, nasal and sinus congestion, fever and chills, headache, change in vision or abdominal pain. MD Complaint: left maxillary premolar and molar toothache; swollen gums -: Gradual, year(s) (2) Location: mouth Radiation: non-radiation Severity scale (0 -10): 5 Quality: aching, sharp Consistency: constant Improves with: none Worsens with: eating Associated Symptoms: denies other symptoms. denies: confusion, chest pain, cough, diaphoresis, fever/chills, headaches, loss of appetite, malaise, nausea/vomiting, rash, seizure, shortness of breath Treatments Prior to Arrival: none - Related Data Previous Rx's Medication Instructions Recorded Last Taken Type Dextroamphetamine/Amphetamine 60 mg PO DAILY 01/04/19 Unknown Rx [Adderall 20 mg Tablet] QUEtiapine [SEROquel] 200 mg PO QHS #14 tablet 01/04/19 Unknown Rx risperiDONE [RisperDAL] 0.5 mg PO BID #60 tablet 10/26/19 Unknown Rx Cetirizine HCl [ZyrTEC] 10 mg PO DAILY #30 capsule 02/27/20 Unknown Rx Triamcinolone Acetonide 60 ml TP BID #1 lotion 02/27/20 Unknown Rx [Triamcinolone 0.1% LOTION] traMADoL [Ultram] 50 mg PO Q6HR PRN #10 tablet 02/27/20 Unknown Rx Clindamycin [Clindamycin CAP] 300 mg PO Q8HR #60 capsule 05/22/20 Unknown Rx Ketorolac [Toradol] 10 mg PO Q8H PRN #15 tablet 05/22/20 Unknown Rx predniSONE [Deltasone] 40 mg PO QDAY #10 tab 05/22/20 Unknown Rx Allergies Allergy/AdvReac Type Severity Reaction Status Date / Time Sulfa (Sulfonamide Allergy Swelling Verified 02/27/20 05:15 Antibiotics) sulfamethoxazole Allergy Swelling Verified 02/27/20 05:15 [From Bactrim] trimethoprim [From Bactrim] Allergy Swelling Verified 02/27/20 05:15 ziprasidone [From Geodon] Allergy Unknown Verified 02/27/20 05:15 ED Review of Systems ROS: Stated complaint: PANIC ATTACK TOOTH PAIN Other details as noted in HPI Constitutional: denies: chills, fever Eyes: denies: eye pain, eye discharge, vision change ENT: dental pain (Left maxillary premolar and molar toothache with swollen gums). denies: ear pain, throat pain Respiratory: denies: cough, shortness of breath, wheezing Cardiovascular: denies: chest pain, palpitations Endocrine: no symptoms reported Gastrointestinal: denies: abdominal pain, nausea, diarrhea Genitourinary: denies: urgency, dysuria, discharge Musculoskeletal: denies: back pain, joint swelling, arthralgia Skin: denies: rash, lesions Neurological: denies: headache, weakness, paresthesias Psychiatric: denies: anxiety, depression Hematological/Lymphatic: denies: easy bleeding, easy bruising ED Past Medical Hx - Past Medical History Previous Medical History?: Yes Hx Hypertension: No Hx Psychiatric Treatment: Yes (PTSD, BIPOLAR, ADHD,anxiety) Hx Asthma: No Hx HIV: Yes (Last CD4 800's 07/19/2019) Additional medical history: ezcema - Surgical History Hx Coronary Stent: No Additional Surgical History: D&C. breast implants. wisdom teeth removed. tubal ligation - Social History Smoking Status: Light Tobacco Smoker Substance Use Type: Alcohol - Medications Home Medications: Home Medications Medication Instructions Recorded Confirmed Last Taken Type Dextroamphetamine/Amphetamine 60 mg PO DAILY 01/04/19 10/24/19 Unknown Rx [Adderall 20 mg Tablet] QUEtiapine [SEROquel] 200 mg PO QHS #14 tablet 01/04/19 10/24/19 Unknown Rx risperiDONE [RisperDAL] 0.5 mg PO BID #60 tablet 10/26/19 Unknown Rx Cetirizine HCl [ZyrTEC] 10 mg PO DAILY #30 capsule 02/27/20 Unknown Rx Triamcinolone Acetonide 60 ml TP BID #1 lotion 02/27/20 Unknown Rx [Triamcinolone 0.1% LOTION] traMADoL [Ultram] 50 mg PO Q6HR PRN #10 tablet 02/27/20 Unknown Rx Clindamycin [Clindamycin CAP] 300 mg PO Q8HR #60 capsule 05/22/20 Unknown Rx Ketorolac [Toradol] 10 mg PO Q8H PRN #15 tablet 05/22/20 Unknown Rx predniSONE [Deltasone] 40 mg PO QDAY #10 tab 05/22/20 Unknown Rx ED Physical Exam - General Limitations: No Limitations General appearance: alert, in no apparent distress - Head Head exam: Present: atraumatic, normocephalic, normal inspection - Eye Eye exam: Present: normal appearance, PERRL, EOMI Pupils: Present: normal accommodation - ENT ENT exam: Present: mucous membranes moist, TM's normal bilaterally, normal external ear exam, other (Swollen, tender left maxillary gingiva, and severely tender left maxillary premolar molar teeth with multiple dental caries) - Neck Neck exam: Present: normal inspection, full ROM. Absent: tenderness, lymphadenopathy - Respiratory Respiratory exam: Present: normal lung sounds bilaterally. Absent: respiratory distress, wheezes, rales, rhonchi, chest wall tenderness, accessory muscle use, decreased breath sounds, prolonged expiratory - Cardiovascular Cardiovascular Exam: Present: regular rate, normal rhythm, normal heart sounds. Absent: systolic murmur, diastolic murmur, rubs, gallop - GI/Abdominal GI/Abdominal exam: Present: soft, normal bowel sounds. Absent: tenderness, guarding, rebound, hyperactive bowel sounds, hypoactive bowel sounds - Extremities Exam Extremities exam: Present: normal inspection, full ROM, normal capillary refill - Back Exam Back exam: Present: normal inspection, full ROM. Absent: tenderness, CVA tenderness (R), CVA tenderness (L), muscle spasm, paraspinal tenderness - Neurological Exam Neurological exam: Present: alert, oriented X3, CN II-XII intact, normal gait, reflexes normal - Psychiatric Psychiatric exam: Present: normal affect, normal mood, anxious - Skin Skin exam: Present: warm, dry, intact, normal color. Absent: rash ED Course Vital Signs 05/22/20 02:12 Temperature 98.3 F Blood Pressure 140/101 ED Medical Decision Making - Medical Decision Making This is a 39-year-old -[place] female with a history of chronic recurrent dental abscesses, HIV, PTSD, ADHD, anxiety and depression who presents to the ED with acute exacerbation of her chronic dental pain characterized by left maxillary premolar and molar toothache with swollen gums for the last 1 week, worse in the last 2 days. In the ED, patient is alert and oriented x3 and is not in distress. Patient was discharged home on oral antibiotics and pain medications and was advised to follow-up with her dentist or primary care physician in 7 to 10 days for reevaluation. Patient was advised to return to the ED immediately if symptoms get worse. - Differential Diagnosis dental abscess; gingvitis; dental caries; anxiety Critical care attestation.: If time is entered above; I have spent that time in minutes in the direct care of this critically ill patient, excluding procedure time. ED Disposition Clinical Impression: Dental abscess, Chronic gingivitis Disposition: TO HOME OR SELFCARE Is pt being admited?: No Does the pt Need Aspirin: No Condition: Stable Instructions: Gingivitis (ED), Dental Abscess (ED) Additional Instructions: Take medication with food, drink plenty of fluids and follow-up with your primary care physician or your dentist in 7 to 10 days for reevaluation. Return to the ED immediately if symptoms get worse. Prescriptions: Clindamycin [Clindamycin CAP] 300 mg PO Q8HR #60 capsule predniSONE [Deltasone] 40 mg PO QDAY #10 tab Ketorolac [Toradol] 10 mg PO Q8H PRN #15 tablet PRN Reason: Pain Referrals: ALLAN MCCARTY MD [Staff Physician] - 7-10 days [facility] [Outside] - 3-5 Days [facility] [Outside] - 3-5 Days Time of Disposition: 05:57 Print Language: LIBERIAN
[2020-05-22 06:46] VITALS: BP 135/110
== END 2020-05-22 06:46 | disposition home or self-care (01) ==
LOC: ED 01:36
DX: K04.7 Periapical abscess without sinus (principal); K05.10 Chronic gingivitis, plaque induced; F31.9 Bipolar disorder, unspecified; F17.200 Nicotine dependence, unspecified, uncomplicated; Z21 Asymptomatic human immunodeficiency virus [HIV] infection status; Z98.51 Tubal ligation status; Z98.890 Other specified postprocedural states; Z79.2 Long term (current) use of antibiotics; Z79.899 Other long term (current) drug therapy; Z88.2 Allergy status to sulfonamides; Z88.8 Allergy status to other drugs, medicaments and biological substances
CPT/HCPCS: 99281

== ENCOUNTER 2020-07-02 19:32 | Emergency (ER) | payer MEDICAID ==
[2020-07-02 20:16] VITALS: BP 140/85
[2020-07-02 20:51] LABS: Basophils % (Auto) 0.4 % (0.0-1.8); Eosinophils % (Auto) 0.5 % (0.0-4.3); Hematocrit 38.4 % (30.3-42.9); Hemoglobin 12.6 gm/dl (10.1-14.3); Lymphocytes % (Auto) 32.3 % (13.4-35.0); Mean Corpuscular HGB Conc 33 % (30-34); Mean Corpuscular Volume 81 fl (79-97); Monocytes # (Auto) 0.4 K/mm3 (0.0-0.8); Monocytes % (Auto) 6.3 % (0.0-7.3); Platelet Count 370 K/mm3 (140-440); Red Blood Count 4.74 M/mm3 (3.65-5.03); Red Cell Distribution Width 17.8 % (13.2-15.2)
[2020-07-02 21:08] LABS: Alanine Aminotransferase 13 units/L (7-56); Albumin 4.1 g/dL (3.9-5); BUN/Creatinine Ratio 6; Blood Urea Nitrogen 5 mg/dL (7-17); Calcium 9.8 mg/dL (8.4-10.2); Hemolysis Index 31
[2020-07-03] MEDS ORDERED: ONDANSETRON 4 MG/2 ML INJ IV ONE (00:10)
[2020-07-03] MEDS ORDERED: SODIUM CHLORIDE 0.9% 1000 ML 1,000 ML IV ONE (00:10)
--- NOTE | 2020-07-03 00:10 | Emergency Department Report ---
ED Abdominal Pain HPI - General Chief Complaint: Dizziness Stated Complaint: NAUSEA/DIZZINESS/ABD PAIN PUI?: No Time Seen by Provider: 07/03/20 00:07 Source: patient Mode of arrival: Ambulatory Limitations: No Limitations - History of Present Illness Initial Comments: Patient is a 40-year-old female that presents emergency room with complaints of abdominal pain, dizziness, nausea, vomiting. Patient states that her symptoms been going on for 3 days. Patient states her symptoms are worsening. Patient states she [place] anything down. Patient states that her dizziness started after vomiting so many times. Patient denies chest pain or shortness of breath. Patient denies fever chills. Patient denies cough. Patient complains of diarrhea. Patient states she has had 3 bouts of diarrhea today. Patient denies blood in her stool. Patient denies blood in her vomitus. Patient denies recent travel. Patient denies recent international travel. Patient denies exposure to the novel coronavirus. Patient denies sick contacts. Patient denies fever and chills. Patient denies cough. Patient denies coming in contact with anybody with symptoms of the novel coronavirus. MD Complaint: abdominal pain -: Sudden, days(s) Location: diffuse Radiation: none Migration to: no migration Severity: severe Severity scale (0 -10): 10 Quality: aching Consistency: constant Improves With: rest Worsens With: vomiting, movement Associated Symptoms: nausea, vomiting, diarrhea. denies: fever, chills, constipation, dysuria, hematemesis, melena, hematuria, syncope - Related Data LMP (females 10-50): last week Previous Rx's Medication Instructions Recorded Last Taken Type Dextroamphetamine/Amphetamine 60 mg PO DAILY 01/04/19 Unknown Rx [Adderall 20 mg Tablet] QUEtiapine [SEROquel] 200 mg PO QHS #14 tablet 01/04/19 Unknown Rx risperiDONE [RisperDAL] 0.5 mg PO BID #60 tablet 10/26/19 Unknown Rx Cetirizine HCl [ZyrTEC] 10 mg PO DAILY #30 capsule 02/27/20 Unknown Rx Triamcinolone Acetonide 60 ml TP BID #1 lotion 02/27/20 Unknown Rx [Triamcinolone 0.1% LOTION] traMADoL [Ultram] 50 mg PO Q6HR PRN #10 tablet 02/27/20 Unknown Rx Clindamycin [Clindamycin CAP] 300 mg PO Q8HR #60 capsule 05/22/20 Unknown Rx Ketorolac [Toradol] 10 mg PO Q8H PRN #15 tablet 05/22/20 Unknown Rx predniSONE [Deltasone] 40 mg PO QDAY #10 tab 05/22/20 Unknown Rx Ondansetron [Zofran Odt] 4 mg PO Q6HR PRN #15 tab.rapdis 07/03/20 Unknown Rx Allergies Allergy/AdvReac Type Severity Reaction Status Date / Time Sulfa (Sulfonamide Allergy Swelling Verified 02/27/20 05:15 Antibiotics) sulfamethoxazole Allergy Swelling Verified 02/27/20 05:15 [From Bactrim] trimethoprim [From Bactrim] Allergy Swelling Verified 02/27/20 05:15 ziprasidone [From Geodon] Allergy Unknown Verified 02/27/20 05:15 ED Review of Systems ROS: Stated complaint: NAUSEA/DIZZINESS/ABD PAIN Other details as noted in HPI Constitutional: denies: chills, fever Eyes: denies: eye pain, eye discharge, vision change ENT: denies: ear pain, throat pain Respiratory: denies: cough, shortness of breath, wheezing Cardiovascular: denies: chest pain, palpitations Endocrine: no symptoms reported Gastrointestinal: abdominal pain, nausea, vomiting, diarrhea. denies: constipation, hematemesis, melena, hematochezia Genitourinary: denies: urgency, dysuria, discharge Musculoskeletal: denies: back pain, joint swelling, arthralgia Skin: denies: rash, lesions Neurological: as per HPI. denies: headache, weakness, paresthesias Psychiatric: denies: anxiety, depression Hematological/Lymphatic: denies: easy bleeding, easy bruising ED Past Medical Hx - Past Medical History Previous Medical History?: Yes Hx Hypertension: No Hx Psychiatric Treatment: Yes (PTSD, BIPOLAR, ADHD,anxiety) Hx Asthma: No Hx HIV: Yes (Last CD4 800's 07/19/2019) Additional medical history: ezcema - Surgical History Past Surgical History?: Yes Hx Coronary Stent: No Additional Surgical History: D&C. breast implants. wisdom teeth removed. tubal ligation - Family History Family history: no significant - Social History Smoking Status: Current Some Day Smoker Substance Use Type: None - Medications Home Medications: Home Medications Medication Instructions Recorded Confirmed Last Taken Type Dextroamphetamine/Amphetamine 60 mg PO DAILY 01/04/19 10/24/19 Unknown Rx [Adderall 20 mg Tablet] QUEtiapine [SEROquel] 200 mg PO QHS #14 tablet 01/04/19 10/24/19 Unknown Rx risperiDONE [RisperDAL] 0.5 mg PO BID #60 tablet 10/26/19 Unknown Rx Cetirizine HCl [ZyrTEC] 10 mg PO DAILY #30 capsule 02/27/20 Unknown Rx Triamcinolone Acetonide 60 ml TP BID #1 lotion 02/27/20 Unknown Rx [Triamcinolone 0.1% LOTION] traMADoL [Ultram] 50 mg PO Q6HR PRN #10 tablet 02/27/20 Unknown Rx Clindamycin [Clindamycin CAP] 300 mg PO Q8HR #60 capsule 05/22/20 Unknown Rx Ketorolac [Toradol] 10 mg PO Q8H PRN #15 tablet 05/22/20 Unknown Rx predniSONE [Deltasone] 40 mg PO QDAY #10 tab 05/22/20 Unknown Rx Ondansetron [Zofran Odt] 4 mg PO Q6HR PRN #15 tab.rapdis 07/03/20 Unknown Rx ED Physical Exam - General Limitations: No Limitations General appearance: alert, in no apparent distress - Head Head exam: Present: atraumatic, normocephalic - Eye Eye exam: Present: normal appearance - ENT ENT exam: Present: mucous membranes moist - Neck Neck exam: Present: normal inspection - Respiratory Respiratory exam: Present: normal lung sounds bilaterally. Absent: respiratory distress - Cardiovascular Cardiovascular Exam: Present: regular rate, normal rhythm. Absent: systolic murmur, diastolic murmur, rubs, gallop - GI/Abdominal GI/Abdominal exam: Present: soft, tenderness (Generalized tenderness), normal bowel sounds - Extremities Exam Extremities exam: Present: normal inspection - Back Exam Back exam: Present: normal inspection - Neurological Exam Neurological exam: Present: alert, oriented X3 - Psychiatric Psychiatric exam: Present: normal affect, normal mood - Skin Skin exam: Present: warm, dry, intact, normal color. Absent: rash ED Course Vital Signs 07/02/20 07/02/20 20:07 20:20 Temperature 98.1 F 98.1 F Pulse Rate 92 H Respiratory 18 18 Rate Blood Pressure 140/85 Blood Pressure 140/85 [Left] O2 Sat by Pulse 98 Oximetry - Reevaluation(s) Reevaluation #1: Patient states she is feeling much better. Patient's nausea has resolved. I discussed all results and clinical findings with patient. I discussed plan of care with patient. Patient agrees with plan of care. Patient is stable for discharge. Patient will be discharged home. Patient given discharge instructions. Patient voiced understanding of discharge instructions. 07/03/20 01:49 ED Medical Decision Making - Lab Data Result diagrams: 07/02/20 20:31 07/02/20 20:31 - Radiology Data Radiology results: report reviewed CT abdomen pelvis w con INDICATION: Patient complains of abd pain with N/V/D x 3 days.. TECHNIQUE: All CT scans at this location are performed using the following dose modulation technique: Automated exposure control. CONTRAST: Omnipaque 300, 100 cc IV injection. COMPARISON: None available. CT ABDOMEN: The parenchymal organs are unremarkable in appearance. Negative for abdominal mass, fluid or inflammation. The bowel is not dilated or thickened. CT PELVIS: The appendix is normal. Negative for distal ureteral stone, pelvic fluid collection or inflammation. A small physiologic cyst is seen at the right ovary. IMPRESSION: Negative for obstruction or localized inflammation. - Medical Decision Making Patient is a 40-year-old female that presents emergency room with complaints of nausea vomiting, diarrhea and abdominal pain. Patient had labs done which were essentially unremarkable. Patient had a CT scan of the abdomen which showed no acute findings. Patient given Zofran and fluids and patient states her symptoms improved. Patient clinical findings are consistent with gastroenteritis. Nba elizabeth given discharge instructions. Patient stable for discharge. Patient discharged home. - Differential Diagnosis Abdominal pain, gastroenteritis, gastritis, dehydration, N/V/D Critical care attestation.: If time is entered above; I have spent that time in minutes in the direct care of this critically ill patient, excluding procedure time. ED Disposition Clinical Impression: Gastroenteritis Abdominal pain Qualifiers: Abdominal location: generalized Qualified Code(s): R10.84 - Generalized abdominal pain Nausea & vomiting Qualifiers: Vomiting type: unspecified Vomiting Intractability: non-intractable Qualified Code(s): R11.2 - Nausea with vomiting, unspecified Diarrhea Qualifiers: Diarrhea type: unspecified type Qualified Code(s): R19.7 - Diarrhea, unspecified Disposition: TO HOME OR SELFCARE Is pt being admited?: No Does the pt Need Aspirin: No Condition: Stable Instructions: Traveler's Diarrhea (ED), Acute Nausea and Vomiting (ED), Gastroenteritis (ED) Additional Instructions: Patient to follow-up with primary care in 2 to 3 days. Patient to eat a brat diet. patient to rest. Patient to increase water. Patient to take Tylenol or ibuprofen as needed for pain. Patient to take meds as directed. Patient to return to the ER if condition worsens, changes or new symptoms arise. Prescriptions: Ondansetron [Zofran Odt] 4 mg PO Q6HR PRN #15 tab.rapdis PRN Reason: Nausea And Vomiting Referrals: PRIMARY CARE,MD [Primary Care Provider] - 2-3 Days Time of Disposition: 01:53
--- NOTE | 2020-07-03 01:10 | Cat Scan Report ---
CT abdomen pelvis w con INDICATION: Patient complains of abd pain with N/V/D x 3 days.. TECHNIQUE: All CT scans at this location are performed using the following dose modulation technique: Automated exposure control. CONTRAST: Omnipaque 300, 100 cc IV injection. COMPARISON: None available. CT ABDOMEN: The parenchymal organs are unremarkable in appearance. Negative for abdominal mass, fluid or inflammation. The bowel is not dilated or thickened. CT PELVIS: The appendix is normal. Negative for distal ureteral stone, pelvic fluid collection or inf lammation. A small physiologic cyst is seen at the right ovary. IMPRESSION: Negative for obstruction or localized inflammation. Signer Name: Moises Whitley MD Signed: 07/03/2020 1:06 AM Workstation Name: [id number]
== END 2020-07-03 02:14 | disposition home or self-care (01) ==
LOC: ED 19:32
DX: K52.9 Noninfective gastroenteritis and colitis, unspecified (principal); R11.2 Nausea with vomiting, unspecified; R10.84 Generalized abdominal pain; F31.9 Bipolar disorder, unspecified; F17.200 Nicotine dependence, unspecified, uncomplicated; Z21 Asymptomatic human immunodeficiency virus [HIV] infection status; Z98.51 Tubal ligation status; Z98.890 Other specified postprocedural states; Z79.2 Long term (current) use of antibiotics; Z79.899 Other long term (current) drug therapy; Z88.2 Allergy status to sulfonamides; Z88.8 Allergy status to other drugs, medicaments and biological substances
CPT/HCPCS: 36415; 74177; 80053; 83690; 84703; 85025; 96361; 96374; 99284; J2405; J7030; Q9967

== ENCOUNTER 2020-08-04 04:07 | Emergency (ER) | payer MEDICAID ==
[2020-08-04] MEDS ORDERED: LORazepam 1 MG TAB PO ONE (08:33)
[2020-08-04] MEDS ORDERED: risperiDONE 1 MG TAB PO ONE (08:38)
--- NOTE | 2020-08-04 08:43 | Emergency Department Report ---
ED Psych HPI - General Chief Complaint: Anxiety Stated Complaint: ANXIETY Time Seen by Provider: 08/04/20 08:08 Source: patient, EMS Mode of arrival: Ambulatory - History of Present Illness Initial Comments: This is a 40-year-old female with a history of schizophrenia. She reports coming to the emergency department by ambulance because she was having a "panic attack. She states that she is allergic to multiple medicines or just refused to take them. They include Geodon, Haldol, risperidone and Seroquel. She states that she felt angry and felt like people want to hurt her in triage. She is not acting in a paranoid fashion nor repeating any paranoid ideation to me on my encounter. She seems to have a series of somatic complaints top of the list is vaginal itching. She denies suicidal or homicidal ideation. She does not really report any acute medical symptomatology. MD Complaint: other -: Gradual Associated Psychiatric Symptoms: none ("Panic attack") History of same: Yes Quality: intermittent Improves With: none Worsens With: none Associated Symptoms: denies other symptoms Treatments Prior to Arrival: none - Related Data Home Medications Medication Instructions Recorded Confirmed Last Taken Bictegrav/Emtricit/Tenofov Ala 1 tab PO DAILY 08/04/20 08/04/20 Unknown [Biktarvy 50-200-25 mg (Nf)] Dextroamphetamine/Amphetamine 20 mg PO DAILY 08/04/20 08/04/20 Unknown [Adderall Xr 20 mg Capsule] Ibuprofen [Motrin] 600 mg PO Q8H PRN 08/04/20 08/04/20 Unknown Methocarbamol [Robaxin] 500 mg PO BID PRN 08/04/20 08/04/20 Unknown Ondansetron [Zofran Odt] 4 mg PO Q8HR 08/04/20 08/04/20 Unknown Valacyclovir HCl [Valacyclovir] 500 mg PO DAILY 08/04/20 08/04/20 Unknown Previous Rx's Medication Instructions Recorded Last Taken Type QUEtiapine [SEROquel] 200 mg PO QHS #14 tablet 01/04/19 Unknown Rx risperiDONE [RisperDAL] 0.5 mg PO BID #60 tablet 10/26/19 Unknown Rx traMADoL [Ultram] 50 mg PO Q6HR PRN #10 tablet 02/27/20 Unknown Rx Fluconazole [Diflucan TAB] 100 mg PO QDAY #7 tablet 08/04/20 Unknown Rx Nitrofurantoin Zavala/M-Cryst 100 mg PO Q12HR #14 capsule 08/04/20 Unknown Rx [Macrobid CAP] Allergies Allergy/AdvReac Type Severity Reaction Status Date / Time Sulfa (Sulfonamide Allergy Swelling Verified 02/27/20 05:15 Antibiotics) sulfamethoxazole Allergy Swelling Verified 02/27/20 05:15 [From Bactrim] trimethoprim [From Bactrim] Allergy Swelling Verified 02/27/20 05:15 ziprasidone [From Geodon] Allergy Unknown Verified 02/27/20 05:15 ED Review of Systems ROS: Stated complaint: ANXIETY Other details as noted in HPI Constitutional: denies: chills, fever Eyes: denies: eye pain, eye discharge, vision change ENT: denies: ear pain, throat pain Respiratory: denies: cough, shortness of breath, wheezing Cardiovascular: denies: chest pain, palpitations Endocrine: no symptoms reported Gastrointestinal: denies: abdominal pain, nausea, diarrhea Genitourinary: as per HPI, other (Vaginal itching). denies: urgency, dysuria, discharge Musculoskeletal: denies: back pain, joint swelling, arthralgia Skin: denies: rash, lesions Neurological: denies: headache, weakness, paresthesias Psychiatric: anxiety, other. denies: depression Hematological/Lymphatic: denies: easy bleeding, easy bruising ED Past Medical Hx - Past Medical History Previous Medical History?: Yes Hx Hypertension: No Hx Psychiatric Treatment: Yes (PTSD, BIPOLAR, ADHD,anxiety) Hx Asthma: No Hx HIV: Yes (Last CD4 800's 07/19/2019) Additional medical history: ezcema - Surgical History Past Surgical History?: Yes Hx Coronary Stent: No Additional Surgical History: D&C. breast implants. wisdom teeth removed. tubal ligation - Social History Smoking Status: Never Smoker - Medications Home Medications: Home Medications Medication Instructions Recorded Confirmed Last Taken Type QUEtiapine [SEROquel] 200 mg PO QHS #14 tablet 01/04/19 08/04/20 Unknown Rx risperiDONE [RisperDAL] 0.5 mg PO BID #60 tablet 10/26/19 08/04/20 Unknown Rx traMADoL [Ultram] 50 mg PO Q6HR PRN #10 tablet 02/27/20 08/04/20 Unknown Rx Bictegrav/Emtricit/Tenofov Ala 1 tab PO DAILY 08/04/20 08/04/20 Unknown History [Biktarvy 50-200-25 mg (Nf)] Dextroamphetamine/Amphetamine 20 mg PO DAILY 08/04/20 08/04/20 Unknown History [Adderall Xr 20 mg Capsule] Fluconazole [Diflucan TAB] 100 mg PO QDAY #7 tablet 08/04/20 Unknown Rx Ibuprofen [Motrin] 600 mg PO Q8H PRN 08/04/20 08/04/20 Unknown History Methocarbamol [Robaxin] 500 mg PO BID PRN 08/04/20 08/04/20 Unknown History Nitrofurantoin Zavala/M-Cryst 100 mg PO Q12HR #14 capsule 08/04/20 Unknown Rx [Macrobid CAP] Ondansetron [Zofran Odt] 4 mg PO Q8HR 08/04/20 08/04/20 Unknown History Valacyclovir HCl [Valacyclovir] 500 mg PO DAILY 08/04/20 08/04/20 Unknown History ED Physical Exam - General Limitations: No Limitations, Physical Limitation General appearance: alert, in no apparent distress - Head Head exam: Present: atraumatic, normocephalic - Eye Eye exam: Present: normal appearance. Absent: scleral icterus - ENT ENT exam: Present: mucous membranes moist - Neck Neck exam: Present: normal inspection - Respiratory Respiratory exam: Present: normal lung sounds bilaterally. Absent: respiratory distress - Cardiovascular Cardiovascular Exam: Present: regular rate, normal rhythm. Absent: systolic murmur, diastolic murmur, rubs, gallop - GI/Abdominal GI/Abdominal exam: Present: soft, normal bowel sounds. Absent: distended, tenderness, guarding, rebound - Extremities Exam Extremities exam: Present: normal inspection - Back Exam Back exam: Present: normal inspection - Neurological Exam Neurological exam: Present: alert, oriented X3, CN II-XII intact, normal gait. Absent: motor sensory deficit - Psychiatric Psychiatric exam: Present: normal affect, normal mood - Skin Skin exam: Present: warm, dry, intact, normal color. Absent: rash ED Course Vital Signs 08/04/20 08/04/20 08/04/20 05:09 07:56 08:16 Temperature 98.0 F 98.9 F Pulse Rate 109 H 101 H Respiratory 19 18 16 Rate Blood Pressure 171/109 156/94 O2 Sat by Pulse 100 100 Oximetry 08/04/20 08:24 Temperature 98.9 F Pulse Rate 101 H Respiratory 18 Rate Blood Pressure O2 Sat by Pulse 100 Oximetry - Reevaluation(s) Reevaluation #1: I have conferred with the psychiatric financial systems director. They found no indications for acute hospitalization or transfer to a psych facility. Patient was referred to outpatient resources. She will be treated for her UTI with Macrobid and Diflucan for vaginal itching. 08/04/20 14:44 ED Medical Decision Making - Lab Data Result diagrams: 08/04/20 08:58 08/04/20 08:58 Laboratory Results - last 24 hr 08/04/20 08/04/20 08/04/20 08:05 08:05 08:58 WBC RBC Hgb Hct MCV MCH MCHC RDW Plt Count Lymph % (Auto) Zavala % (Auto) Eos % (Auto) Baso % (Auto) Lymph # (Auto) Zavala # (Auto) Eos # (Auto) Baso # (Auto) Seg Neutrophils % Seg Neutrophils # Sodium Potassium Chloride Carbon Dioxide Anion Gap BUN Creatinine Estimated GFR BUN/Creatinine Ratio Glucose Calcium Magnesium Urine Color Yellow Urine Turbidity Cloudy Urine pH 6.0 Ur Specific [place] 1.020 Urine Protein <15 mg/dl Urine Glucose (UA) Neg Urine Ketones Neg Urine Blood Mod Urine Nitrite Neg Urine Bilirubin Neg Urine Urobilinogen < 2.0 Ur Leukocyte Esterase Mod Urine WBC (Auto) 26.0 H Urine RBC (Auto) 81.0 U Epithel Cells (Auto) 11.0 Calcium Oxalate Crystal 3+ Urine Mucus 3+ Urine HCG, Qual Negative Salicylates < 0.3 L Urine Opiates Screen Presumptive negative Urine Methadone Screen Presumptive negative Acetaminophen Ur Barbiturates Screen Presumptive negative Ur Phencyclidine Scrn Presumptive negative Ur Amphetamines Screen Presumptive positive U Benzodiazepines Scrn Presumptive negative Urine Cocaine Screen Presumptive negative U Marijuana (THC) Screen Presumptive negative Drugs of Abuse Note Disclamer Plasma/Serum Alcohol 08/04/20 08/04/20 08/04/20 08:58 08:58 08:58 WBC RBC Hgb Hct MCV MCH MCHC RDW Plt Count Lymph % (Auto) Zavala % (Auto) Eos % (Auto) Baso % (Auto) Lymph # (Auto) Zavala # (Auto) Eos # (Auto) Baso # (Auto) Seg Neutrophils % Seg Neutrophils # Sodium 138 Potassium 3.8 Chloride 103.7 Carbon Dioxide 22 Anion Gap 16 BUN 6 L Creatinine 0.7 Estimated GFR > 60 BUN/Creatinine Ratio 9 Glucose 119 H Calcium 9.5 Magnesium 1.20 L Urine Color Urine Turbidity Urine pH Ur Specific [place] Urine Protein Urine Glucose (UA) Urine Ketones Urine Blood Urine Nitrite Urine Bilirubin Urine Urobilinogen Ur Leukocyte Esterase Urine WBC (Auto) Urine RBC (Auto) U Epithel Cells (Auto) Calcium Oxalate Crystal Urine Mucus Urine HCG, Qual Salicylates Urine Opiates Screen Urine Methadone Screen Acetaminophen 5.0 L Ur Barbiturates Screen Ur Phencyclidine Scrn Ur Amphetamines Screen U Benzodiazepines Scrn Urine Cocaine Screen U Marijuana (THC) Screen Drugs of Abuse Note Plasma/Serum Alcohol < 0.01 08/04/20 08:58 WBC 4.5 RBC 4.28 Hgb 11.4 Hct 35.1 MCV 82 MCH 27 L MCHC 32 RDW 16.6 H Plt Count 345 Lymph % (Auto) 33.0 Zavala % (Auto) 11.6 H Eos % (Auto) 0.3 Baso % (Auto) 0.5 Lymph # (Auto) 1.5 Zavala # (Auto) 0.5 Eos # (Auto) 0.0 Baso # (Auto) 0.0 Seg Neutrophils % 54.6 Seg Neutrophils # 2.5 Sodium Potassium Chloride Carbon Dioxide Anion Gap BUN Creatinine Estimated GFR BUN/Creatinine Ratio Glucose Calcium Magnesium Urine Color Urine Turbidity Urine pH Ur Specific [place] Urine Protein Urine Glucose (UA) Urine Ketones Urine Blood Urine Nitrite Urine Bilirubin Urine Urobilinogen Ur Leukocyte Esterase Urine WBC (Auto) Urine RBC (Auto) U Epithel Cells (Auto) Calcium Oxalate Crystal Urine Mucus Urine HCG, Qual Salicylates Urine Opiates Screen Urine Methadone Screen Acetaminophen Ur Barbiturates Screen Ur Phencyclidine Scrn Ur Amphetamines Screen U Benzodiazepines Scrn Urine Cocaine Screen U Marijuana (THC) Screen Drugs of Abuse Note Plasma/Serum Alcohol - Radiology Data Radiology results: report reviewed (CT head no acute process) Critical care attestation.: If time is entered above; I have spent that time in minutes in the direct care of this critically ill patient, excluding procedure time. ED Disposition Clinical Impression: Psychiatric disorder, Vaginal pruritus UTI (urinary tract infection) Qualifiers: Urinary tract infection type: site unspecified Hematuria presence: with hematuria Qualified Code(s): N39.0 - Urinary tract infection, site not specified; R31.9 - Hematuria, unspecified Disposition: DC-01 TO HOME OR SELFCARE Is pt being admited?: No Does the pt Need Aspirin: No Condition: Stable Instructions: Urinary Tract Infection in Women (ED), Vaginitis (ED) Additional Instructions: Follow-up with [facility] psychiatric resources. Follow-up with your infectious disease clinic. Return to the emergency department any acute change or problem. Prescriptions: Fluconazole [Diflucan TAB] 100 mg PO QDAY #7 tablet Nitrofurantoin Zavala/M-Cryst [Macrobid CAP] 100 mg PO Q12HR #14 capsule Referrals: PRIMARY CARE, [Primary Care Provider] - 3-5 Days Time of Disposition: 14:48
[2020-08-04 09:21] LABS: Basophils % (Auto) 0.5 % (0.0-1.8); Eosinophils % (Auto) 0.3 % (0.0-4.3); Hematocrit 35.1 % (30.3-42.9); Hemoglobin 11.4 gm/dl (10.1-14.3); Lymphocytes # (Auto) 1.5 K/mm3 (1.2-5.4); Mean Corpuscular HGB Conc 32 % (30-34); Mean Corpuscular Volume 82 fl (79-97); Monocytes # (Auto) 0.5 K/mm3 (0.0-0.8); Monocytes % (Auto) 11.6 % (0.0-7.3); Platelet Count 345 K/mm3 (140-440); Red Blood Count 4.28 M/mm3 (3.65-5.03); Red Cell Distribution Width 16.6 % (13.2-15.2)
[2020-08-04 09:24] LABS: Bilirubin,Urine NEG (Negative); Blood,Urine MOD (Negative); Calcium Oxalate Crystals,Urine 3+; Color,Urine Yellow (Yellow); Mucus,Urine 3+ /HPF; Protein,Urine <15 mg/dL mg/dL (Negative); Urobilinogen,Urine < 2.0 mg/dL (<2.0)
[2020-08-04 09:25] LABS: HCG Qualitative,Urine Negative (Negative)
[2020-08-04 09:57] LABS: Amphetamine Screen,Urine PRESUMPTIVE POSITIVE; Benzodiazepines Screen,Urine PRESUMPTIVE NEGATIVE; Cannabinoid Screen,Urine PRESUMPTIVE NEGATIVE; Cocaine Screen,Urine PRESUMPTIVE NEGATIVE; Methadone Screen,Urine PRESUMPTIVE NEGATIVE; Opiate Screen,Urine PRESUMPTIVE NEGATIVE
--- NOTE | 2020-08-04 09:57 | Cat Scan Report ---
CT BRAIN: 08/04/2020 INDICATION / CLINICAL INFORMATION: Altered mental status. COMPARISON: 10/24/2019 FINDINGS: BRAIN/INTRACRANIAL STRUCTURES: Unenhanced CT images of the brain demonstrate no evidence of acute int racranial abnormality. Ventricles and sulci are normal in size and shape. There is no evidence of ischemic injury, hemorrhage, or mass. There are no abnormal extra-axial fluid collections. EXTRACRANIAL STRUCTURES: Unremarkable. IMPRESSION: Negative unenhanced CT of the brain. No change when compared to 10/24/2019. All CT scans at this location are performed using dose reduction to ALARA by means of automated expos ure control. Signer Name: Everett Oliver MD Signed: 08/04/2020 9:14 AM Workstation Name: [id number]
[2020-08-04 10:35] LABS: Blood Urea Nitrogen 6 mg/dL (7-17); Calcium 9.5 mg/dL (8.4-10.2); Hemolysis Index 4
[2020-08-04 10:37] LABS: BUN/Creatinine Ratio 9
[2020-08-04] MEDS ORDERED: IBUPROFEN 600 MG TAB PO ONE (15:52)
[2020-08-04 16:10] VITALS: BP 116/67
[2020-08-05] MEDS ORDERED: MAGNESIUM OXIDE 400 MG TAB PO ONE (14:52)
== END 2020-08-04 16:03 | disposition home or self-care (01) ==
LOC: ED 04:07
DX: N39.0 Urinary tract infection, site not specified (principal); L29.8 Other pruritus; F29 Unspecified psychosis not due to a substance or known physiological condition; F31.9 Bipolar disorder, unspecified; Z21 Asymptomatic human immunodeficiency virus [HIV] infection status; Z98.51 Tubal ligation status; Z98.890 Other specified postprocedural states; Z79.899 Other long term (current) drug therapy; Z88.2 Allergy status to sulfonamides
CPT/HCPCS: 36415; 70450; 80048; 80307; 80320; 81001; 81025; 83735; 85025; 87086; G0480

== ENCOUNTER 2020-08-10 17:51 | Emergency (ER) | payer MEDICAID ==
--- NOTE | 2020-08-10 18:27 | Emergency Department Report ---
Blank Doc - Documentation Documentation: 40-year-old female that presents with depression and anxiety. Denies any SI/HI. This initial assessment/diagnostic orders/clinical plan/treatment(s) is/are subject to change based on patient's health status, clinical progression and re- assessment by fellow clinical providers in the ED. Further treatment and workup at subsequent clinical providers discretion. Patient/guardians urged not to elope from the ED as their condition may be serious if not clinically assessed and managed. Initial orders include: 1- Patient sent to MAIN ED for further evaluation and treatment 2- labs 3- UA 4- psych consult
[2020-08-10 19:14] LABS: Basophils % (Auto) 0.3 % (0.0-1.8); Eosinophils % (Auto) 0.4 % (0.0-4.3); Hematocrit 36.3 % (30.3-42.9); Hemoglobin 11.7 gm/dl (10.1-14.3); Lymphocytes # (Auto) 1.2 K/mm3 (1.2-5.4); Lymphocytes % (Auto) 21.1 % (13.4-35.0); Mean Corpuscular HGB Conc 32 % (30-34); Mean Corpuscular Volume 82 fl (79-97); Monocytes # (Auto) 0.4 K/mm3 (0.0-0.8); Monocytes % (Auto) 6.8 % (0.0-7.3); Platelet Count 386 K/mm3 (140-440); Red Blood Count 4.44 M/mm3 (3.65-5.03); Red Cell Distribution Width 16.9 % (13.2-15.2)
[2020-08-10 19:26] LABS: Blood Urea Nitrogen 4 mg/dL (7-17); Calcium 9.1 mg/dL (8.4-10.2); Hemolysis Index 14
[2020-08-10 19:55] LABS: BUN/Creatinine Ratio 7
--- NOTE | 2020-08-10 21:51 | Emergency Department Report ---
ED General Adult HPI - General Chief complaint: Anxiety Stated complaint: PANIC ATTACH Time Seen by Provider: 08/10/20 18:25 Source: patient Mode of arrival: Ambulatory Limitations: No Limitations - History of Present Illness Initial comments: Ms. Hidalgo 40-year-old F [place] female with a reported past medical history of anxiety and depression schizophrenia reports being off of her medications for an undisclosed amount of time presents emergency department complaining of feeling very angry coupled with extreme depression" is not feeling herself". She reports no suicidal ideation but will not confirm the lack of homicidal ideation. She reports no fevers chills or sweats but does have a dull headache off and on and a feeling hallucinations weakness that she cannot describe. Thoughts are tangential appears to be abrasions as stated in his neck she has trouble grasping what is going on around her and comprehending although she is alert and oriented x3 she will not confirm a lack of auditory or visual hallucinations. She also continues to repeat that she is not doing well - Related Data Home Medications Medication Instructions Recorded Confirmed Last Taken Bictegrav/Emtricit/Tenofov Ala 1 tab PO DAILY 08/04/20 08/04/20 Unknown [Biktarvy 50-200-25 mg (Nf)] Dextroamphetamine/Amphetamine 20 mg PO DAILY 08/04/20 08/04/20 Unknown [Adderall Xr 20 mg Capsule] Ibuprofen [Motrin] 600 mg PO Q8H PRN 08/04/20 08/04/20 Unknown Methocarbamol [Robaxin] 500 mg PO BID PRN 08/04/20 08/04/20 Unknown Ondansetron [Zofran Odt] 4 mg PO Q8HR 08/04/20 08/04/20 Unknown Valacyclovir HCl [Valacyclovir] 500 mg PO DAILY 08/04/20 08/04/20 Unknown Previous Rx's Medication Instructions Recorded Last Taken Type QUEtiapine [SEROquel] 200 mg PO QHS #14 tablet 01/04/19 Unknown Rx risperiDONE [RisperDAL] 0.5 mg PO BID #60 tablet 10/26/19 Unknown Rx traMADoL [Ultram] 50 mg PO Q6HR PRN #10 tablet 02/27/20 Unknown Rx Fluconazole [Diflucan TAB] 100 mg PO QDAY #7 tablet 08/04/20 Unknown Rx Magnesium Oxide [Mag-Ox] 400 mg PO QDAY #30 tablet 08/04/20 Unknown Rx Nitrofurantoin Logan/M-Cryst 100 mg PO Q12HR #14 capsule 08/04/20 Unknown Rx [Macrobid CAP] cefUROXime [Ceftin] 250 mg PO Q12H #14 tablet 08/12/20 Unknown Rx clonazePAM [ Klonopin] 0.5 mg PO DAILY PRN #15 tab 08/12/20 Unknown Rx risperiDONE [RisperDAL] 0.25 mg PO BID #60 tab 08/12/20 Unknown Rx Moxifloxacin 0.5% [Vigamox] 1 drops OP Q8H 7 Days #1 bottle 08/13/20 Unknown Rx Allergies Allergy/AdvReac Type Severity Reaction Status Date / Time Sulfa (Sulfonamide Allergy Swelling Verified 02/27/20 05:15 Antibiotics) sulfamethoxazole Allergy Swelling Verified 02/27/20 05:15 [From Bactrim] trimethoprim [From Bactrim] Allergy Swelling Verified 02/27/20 05:15 ziprasidone [From Geodon] Allergy Unknown Verified 02/27/20 05:15 ED Review of Systems ROS: Stated complaint: PANIC ATTACH Other details as noted in HPI Comment: All other systems reviewed and negative ED Past Medical Hx - Past Medical History Previous Medical History?: Yes Hx Hypertension: No Hx Psychiatric Treatment: Yes (PTSD, BIPOLAR, ADHD,anxiety) Hx Asthma: No Hx HIV: Yes (Last CD4 800's 07/19/2019) Additional medical history: ezcema - Surgical History Past Surgical History?: Yes Hx Coronary Stent: No Additional Surgical History: D&C. breast implants. wisdom teeth removed. tubal ligation - Social History Smoking Status: Never Smoker - Medications Home Medications: Home Medications Medication Instructions Recorded Confirmed Last Taken Type QUEtiapine [SEROquel] 200 mg PO QHS #14 tablet 01/04/19 08/04/20 Unknown Rx risperiDONE [RisperDAL] 0.5 mg PO BID #60 tablet 10/26/19 08/04/20 Unknown Rx traMADoL [Ultram] 50 mg PO Q6HR PRN #10 tablet 02/27/20 08/04/20 Unknown Rx Bictegrav/Emtricit/Tenofov Ala 1 tab PO DAILY 08/04/20 08/04/20 Unknown History [Biktarvy 50-200-25 mg (Nf)] Dextroamphetamine/Amphetamine 20 mg PO DAILY 08/04/20 08/04/20 Unknown History [Adderall Xr 20 mg Capsule] Fluconazole [Diflucan TAB] 100 mg PO QDAY #7 tablet 08/04/20 Unknown Rx Ibuprofen [Motrin] 600 mg PO Q8H PRN 08/04/20 08/04/20 Unknown History Magnesium Oxide [Mag-Ox] 400 mg PO QDAY #30 tablet 08/04/20 Unknown Rx Methocarbamol [Robaxin] 500 mg PO BID PRN 08/04/20 08/04/20 Unknown History Nitrofurantoin Logan/M-Cryst 100 mg PO Q12HR #14 capsule 08/04/20 Unknown Rx [Macrobid CAP] Ondansetron [Zofran Odt] 4 mg PO Q8HR 08/04/20 08/04/20 Unknown History Valacyclovir HCl [Valacyclovir] 500 mg PO DAILY 08/04/20 08/04/20 Unknown History cefUROXime [Ceftin] 250 mg PO Q12H #14 tablet 08/12/20 Unknown Rx clonazePAM [ Klonopin] 0.5 mg PO DAILY PRN #15 tab 08/12/20 Unknown Rx risperiDONE [RisperDAL] 0.25 mg PO BID #60 tab 08/12/20 Unknown Rx Moxifloxacin 0.5% [Vigamox] 1 drops OP Q8H 7 Days #1 bottle 08/13/20 Unknown Rx ED Physical Exam - General Limitations: No Limitations General appearance: alert, other (Appears to be avoidant) - Head Head exam: Present: atraumatic, normocephalic - Eye Eye exam: Present: normal appearance, PERRL, EOMI - ENT ENT exam: Present: mucous membranes moist - Neck Neck exam: Present: normal inspection - Respiratory Respiratory exam: Present: normal lung sounds bilaterally. Absent: respiratory distress - Cardiovascular Cardiovascular Exam: Present: regular rate, normal rhythm. Absent: systolic murmur, diastolic murmur, rubs, gallop - GI/Abdominal GI/Abdominal exam: Present: soft, normal bowel sounds - Extremities Exam Extremities exam: Present: normal inspection - Back Exam Back exam: Present: normal inspection - Neurological Exam Neurological exam: Present: alert, oriented X3 - Psychiatric Psychiatric exam: Present: depressed, anxious. Absent: suicidal ideation - Expanded Psychiatric Exam Expanded Focused psych exam: Present: perseverating (Continue to reiterate her not being herself or comprehending but is alert and oriented), restlessness, flight of ideas - Skin Skin exam: Present: warm, dry, intact, normal color. Absent: rash ED Course Vital Signs 08/10/20 08/11/20 08/12/20 18:28 21:14 02:05 Temperature 98.1 F 98.2 F 98.0 F Pulse Rate 82 75 78 Respiratory 20 16 16 Rate Blood Pressure 148/97 Blood Pressure 126/76 116/70 [Left] O2 Sat by Pulse 100 100 99 Oximetry 08/12/20 07:44 Temperature 97.8 F Pulse Rate 73 Respiratory 18 Rate Blood Pressure Blood Pressure 95/66 [Left] O2 Sat by Pulse 99 Oximetry - Consultations Consultation #1: 08/10/20 21:53 Case was discussed with attending Dr. Aldana plan at this point time will be to 1013 Ms. Hidalgo and have her to receive a psych consultation as at this present states she appears to have said psychosis coupled with anger and a decrease in her decision making capacity ED Medical Decision Making - Lab Data Result diagrams: 08/10/20 18:35 08/10/20 18:35 - Medical Decision Making Is 40-year-old female with psychosis and tangential thoughts placed on a 1013 transfer to the main side for further evaluation and treatment options care was deferred to those providers who came up with the ultimate disposition see their notes for more detail. At the time of my departure was still awaiting urina lysis as well as mental health evaluation for definitive treatment. Critical care attestation.: If time is entered above; I have spent that time in minutes in the direct care of this critically ill patient, excluding procedure time. ED Disposition Clinical Impression: Bipolar disorder Qualifiers: Active/Remission status: currently active Current bipolar episode type: mixed Current episode severity: moderate Qualified Code(s): F31.62 - Bipolar disorder, current episode mixed, moderate UTI (urinary tract infection) Qualifiers: Urinary tract infection type: site unspecified Hematuria presence: with hematuria Qualified Code(s): N39.0 - Urinary tract infection, site not specified Disposition: -01 TO HOME OR SELFCARE Is pt being admited?: No Does the pt Need Aspirin: No Condition: Stable Instructions: Urinary Tract Infection in Women (ED), Bipolar Disorder (ED), Suicide Prevention for Adults (ED) Additional Instructions: Follow-up no new urine culture in 2 days. You have a urine infection. Rx is written. Follow-up with your IDC clinic as well. Professional and Agency Contacts To help [facility](08/05) [place] Crisis Line: Suicide Prevention Line: Crisis Text Line: Text START to [phone] Emergency: 911 Outpatient COMMUNITY Behavioral Health Resources: ROGE: [facility] [address] [place], [place] [address] SHANKS: [facility] - [address] [place] [address] Monday thru Monday - 8am - 5pm KHAN: [facility] Address: [address] [place] [address] Monday thru Monday- 7am-2pm [facility] Address: [address] [place] [address] Monday thru Monday: 8:30AM-5PM OUTPATIENT MENTAL HEALTH RESOURCES [facility], [facility] Fawad Reddy MD: [address] [facility] [address] [place] [address] [place] [address] [facility]: [facility] [address] [place] [address] [place] [address] [phone] [facility]: [address] [facility] [place] [address] [facility] [address] [facility]: jM Diaz MD: [address] [facility] [address] [facility] [address] [facility]: [address] [place] [phone] [place] CRISIS AND ACCESS LINE: Prescriptions: cefUROXime [Ceftin] 250 mg PO Q12H #14 tablet clonazePAM [ Klonopin] 0.5 mg PO DAILY PRN #15 tab PRN Reason: Anxiety risperiDONE [RisperDAL] 0.25 mg PO BID #60 tab Referrals: [facility] [Provider Group] - 3-5 Days [facility],MD [Primary Care Provider] - 3-5 Days
[2020-08-12 07:45] VITALS: BP 95/66
[2020-08-12 09:30] LABS: Benzodiazepines Screen,Urine Negative; Cocaine Screen,Urine Negative; Methadone Screen,Urine Negative; Opiate Screen,Urine Negative
[2020-08-12 09:51] LABS: Bacteria,Urine 4+ /HPF (Negative); Bilirubin,Urine NEG (Negative); Blood,Urine SM (Negative); Color,Urine Yellow (Yellow); Mucus,Urine 3+ /HPF; Triple Phosphate Crystal,Urine 3+; Urobilinogen,Urine < 2.0 mg/dL (<2.0)
[2020-08-12 09:58] LABS: Protein,Urine >500 mg/dL (Negative); WBC,Urine > 182.0 /HPF (0.0-6.0)
[2020-08-12 10:00] LABS: Amphetamine Screen,Urine Positive; Cannabinoid Screen,Urine Positive
--- NOTE | 2020-08-12 11:54 | Consultation ---
History of Present Illness - Reason for Consult Consult date: 08/12/20 Reason for consult: depression - History of Present Psychiatric Illness Corine Hidalgo is a 40y/o female patient who presented to the ER "feeling angry." She is a/o x 3. She is calm and cooperative. She says "I initially came here for my breathing, but yes, I was angry but I wasn't suicidal or nothing." She then says "don't know why they got psych in here." The patient denies SI/HI. She says "I'm not suicidal and I never told anybody that." She denies hallucinations of any kind. She said "when I came in I felt agitated and upset, but I didn't feel it was that bad."' She says "I got dropped from school and I lost my grandma, but I'm not suicidal or severely depressed over it." She says she has a history of ADHD, Bipolar and Depression." The patient denies any illicit drug use, alcohol or nicotine. The patient says she takes "adderall and klonopin." She says she doesn't take anything for her Bipolar or depression. She says she's getting ready to go out of town and asked if I could give her prescriptions. PAST PSYCHIATRIC HISTORY: Diagnoses: ADHD, depression, bipolar Suicide attempts or Self-harm behavior: Denies Prior psychiatric hospitalizations: "a few times" Substance Abuse history: Denies Previous psychiatric medications tried: Could not recall Outpatient treatment: Not recently PAST MEDICAL HISTORY: HIV Family Psychiatric History: None reported or documented SOCIAL HISTORY Marital Status: Living Arrangements: with my brother Employment Status: Unemployed Education: 3 years of college History of Abuse: None reported Legal History: None reported REVIEW OF SYSTEMS Constitutional: Negative for weight loss ENT: Negative for stridor Respiratory: Negative for cough or hemoptysis All other systems reviewed and are negative MENTAL STATUS EXAMINATION General Appearance: Dressed appropriately Behavior: fair eye contact, calm and cooperative Cooperation: Participating/engaged Psychomotor Behavior: Psychomotor normal Mood: Okay Affect and affective range: congruent with mood Thought Process: goal oriented Thought Content: within reality Speech: Normal rate, volume and rhythm Suicidal Ideation: denies SI Homicidal Ideation: Denies HI Hallucinations: Denies Delusions: None elicited Impulse Control: unimpaired Insight and Judgment: Limited insight and judgment Memory: Normal Attention: Normal Orientation: Alert, oriented Assessment and Plan (1) Bipolar Disorder (2) Substance Induced Mood Disorder TREATMENT D/C 1013 Scripts: Klonopin 0.5mg po daily prn anxiety for two weeks #15 Risperidoone 0.25mg po BID Sitter: Per primary Medical: Per primary Disposition: Do not recommend acute inpatient psychiatric treatment. The patient understands that if SI/HI or any fear of endangerment are to arise she is to seek immediate assistance influding but not limited to the crisis hotline, 911 and ER. The holistic nutritionist to further implement the safety plan. The holistic nutritionist to give the patient outpatient resources, cognitive behavioral therapy and rehab The patient is to follow up in 7 to 14 days upon discharge The patient is to abstain from all illicit drug use Will sign off. Thank you for this consult. Medications and Allergies Allergies Allergy/AdvReac Type Severity Reaction Status Date / Time Sulfa (Sulfonamide Allergy Swelling Verified 02/27/20 05:15 Antibiotics) sulfamethoxazole Allergy Swelling Verified 02/27/20 05:15 [From Bactrim] trimethoprim [From Bactrim] Allergy Swelling Verified 02/27/20 05:15 ziprasidone [From Geodon] Allergy Unknown Verified 02/27/20 05:15 Home Medications Medication Instructions Recorded Confirmed Last Taken Type QUEtiapine [SEROquel] 200 mg PO QHS #14 tablet 01/04/19 08/04/20 Unknown Rx risperiDONE [RisperDAL] 0.5 mg PO BID #60 tablet 10/26/19 08/04/20 Unknown Rx traMADoL [Ultram] 50 mg PO Q6HR PRN #10 tablet 02/27/20 08/04/20 Unknown Rx Bictegrav/Emtricit/Tenofov Ala 1 tab PO DAILY 08/04/20 08/04/20 Unknown History [Biktarvy 50-200-25 mg (Nf)] Dextroamphetamine/Amphetamine 20 mg PO DAILY 08/04/20 08/04/20 Unknown History [Adderall Xr 20 mg Capsule] Fluconazole [Diflucan TAB] 100 mg PO QDAY #7 tablet 08/04/20 Unknown Rx Ibuprofen [Motrin] 600 mg PO Q8H PRN 08/04/20 08/04/20 Unknown History Magnesium Oxide [Mag-Ox] 400 mg PO QDAY #30 tablet 08/04/20 Unknown Rx Methocarbamol [Robaxin] 500 mg PO BID PRN 08/04/20 08/04/20 Unknown History Nitrofurantoin M[place]ulloch/M-Cryst 100 mg PO Q12HR #14 capsule 08/04/20 Unknown Rx [Macrobid CAP] Ondansetron [Zofran Odt] 4 mg PO Q8HR 08/04/20 08/04/20 Unknown History Valacyclovir HCl [Valacyclovir] 500 mg PO DAILY 08/04/20 08/04/20 Unknown History clonazePAM [ Klonopin] 0.5 mg PO DAILY PRN #15 tab 08/12/20 Unknown Rx risperiDONE [RisperDAL] 0.25 mg PO BID #60 tab 08/12/20 Unknown Rx Mental Status Exam - Vital signs Last Vital Signs Temp 97.8 F 08/12/20 07:44 Pulse 73 08/12/20 07:44 Resp 18 08/12/20 07:44 BP 95/66 08/12/20 07:44 Pulse Ox 99 08/12/20 07:44 Results Result Diagrams: 08/10/20 18:35 08/10/20 18:35 Abnormal lab results 08/12/20 Range/Units Unknown Urine WBC (Auto) > 182.0 H (0.0-6.0) /HPF U Epithel Cells (Auto) 45.0 H (0-13.0) /HPF All other labs normal.
[2020-08-12] MEDS ORDERED: LIDOCAINE-MPF (1%) 10 MG/1 ML VIAL 5 ML INFILTRATI ONE (14:05)
== END 2020-08-12 17:45 | disposition home or self-care (01) ==
LOC: ED 17:51
DX: F31.9 Bipolar disorder, unspecified (principal); F43.11 Post-traumatic stress disorder, acute; F90.8 Attention-deficit hyperactivity disorder, other type; Z98.51 Tubal ligation status; Z88.2 Allergy status to sulfonamides; Z79.899 Other long term (current) drug therapy; Z20.828 Contact with and (suspected) exposure to other viral communicable diseases
CPT/HCPCS: 36415; 80048; 80307; 81001; 84443; 85025; 87086; 96372; 99284; J0696; U0003; 80320; G0480

== ENCOUNTER 2020-08-13 16:24 | Emergency (ER) | payer MEDICAID ==
--- NOTE | 2020-08-13 16:30 | Emergency Department Report ---
ED Eye Problem HPI - General Time Seen by Provider: 08/13/20 16:24 - History of Present Illness Initial comments: Patient is a 40-year-old female presents emergency room with complaints of left eye irritation that began yesterday. She states that she has associated green/yellow mucus drainage. She states that she has constant watering. She states that she has a high pain and photosensitivity. She denies getting anything into the eye. She states that she does wear contact lenses and currently on cement. She denies any vision changes. She has a past medical history of bipolar, denies any SI or HI. She has an allergy to sulfa and Geodon. - Related Data Home Medications Medication Instructions Recorded Confirmed Last Taken Bictegrav/Emtricit/Tenofov Ala 1 tab PO DAILY 08/04/20 08/04/20 Unknown [Biktarvy 50-200-25 mg (Nf)] Dextroamphetamine/Amphetamine 20 mg PO DAILY 08/04/20 08/04/20 Unknown [Adderall Xr 20 mg Capsule] Ibuprofen [Motrin] 600 mg PO Q8H PRN 08/04/20 08/04/20 Unknown Methocarbamol [Robaxin] 500 mg PO BID PRN 08/04/20 08/04/20 Unknown Ondansetron [Zofran Odt] 4 mg PO Q8HR 08/04/20 08/04/20 Unknown Valacyclovir HCl [Valacyclovir] 500 mg PO DAILY 08/04/20 08/04/20 Unknown Previous Rx's Medication Instructions Recorded Last Taken Type QUEtiapine [SEROquel] 200 mg PO QHS #14 tablet 01/04/19 Unknown Rx risperiDONE [RisperDAL] 0.5 mg PO BID #60 tablet 10/26/19 Unknown Rx traMADoL [Ultram] 50 mg PO Q6HR PRN #10 tablet 02/27/20 Unknown Rx Fluconazole [Diflucan TAB] 100 mg PO QDAY #7 tablet 08/04/20 Unknown Rx Magnesium Oxide [Mag-Ox] 400 mg PO QDAY #30 tablet 08/04/20 Unknown Rx Nitrofurantoin Briscoe/M-Cryst 100 mg PO Q12HR #14 capsule 08/04/20 Unknown Rx [Macrobid CAP] cefUROXime [Ceftin] 250 mg PO Q12H #14 tablet 08/12/20 Unknown Rx clonazePAM [ Klonopin] 0.5 mg PO DAILY PRN #15 tab 08/12/20 Unknown Rx risperiDONE [RisperDAL] 0.25 mg PO BID #60 tab 08/12/20 Unknown Rx Moxifloxacin 0.5% [Vigamox] 1 drops OP Q8H 7 Days #1 bottle 08/13/20 Unknown Rx Allergies Allergy/AdvReac Type Severity Reaction Status Date / Time Sulfa (Sulfonamide Allergy Swelling Verified 02/27/20 05:15 Antibiotics) sulfamethoxazole Allergy Swelling Verified 02/27/20 05:15 [From Bactrim] trimethoprim [From Bactrim] Allergy Swelling Verified 02/27/20 05:15 ziprasidone [From Geodon] Allergy Unknown Verified 02/27/20 05:15 ED Review of Systems ROS: Stated complaint: Other details as noted in HPI Comment: All other systems reviewed and negative ED Past Medical Hx - Past Medical History Hx Hypertension: No Hx Psychiatric Treatment: Yes (PTSD, BIPOLAR, ADHD,anxiety) Hx Asthma: No Hx HIV: Yes (Last CD4 800's 07/19/2019) Additional medical history: ezcema - Surgical History Hx Coronary Stent: No Additional Surgical History: D&C. breast implants. wisdom teeth removed. tubal ligation - Social History Smoking Status: Never Smoker - Medications Home Medications: Home Medications Medication Instructions Recorded Confirmed Last Taken Type QUEtiapine [SEROquel] 200 mg PO QHS #14 tablet 01/04/19 08/04/20 Unknown Rx risperiDONE [RisperDAL] 0.5 mg PO BID #60 tablet 10/26/19 08/04/20 Unknown Rx traMADoL [Ultram] 50 mg PO Q6HR PRN #10 tablet 02/27/20 08/04/20 Unknown Rx Bictegrav/Emtricit/Tenofov Ala 1 tab PO DAILY 08/04/20 08/04/20 Unknown History [Biktarvy 50-200-25 mg (Nf)] Dextroamphetamine/Amphetamine 20 mg PO DAILY 08/04/20 08/04/20 Unknown History [Adderall Xr 20 mg Capsule] Fluconazole [Diflucan TAB] 100 mg PO QDAY #7 tablet 08/04/20 Unknown Rx Ibuprofen [Motrin] 600 mg PO Q8H PRN 08/04/20 08/04/20 Unknown History Magnesium Oxide [Mag-Ox] 400 mg PO QDAY #30 tablet 08/04/20 Unknown Rx Methocarbamol [Robaxin] 500 mg PO BID PRN 08/04/20 08/04/20 Unknown History Nitrofurantoin [place]iscoe/M-Cryst 100 mg PO Q12HR #14 capsule 08/04/20 Unknown Rx [Macrobid CAP] Ondansetron [Zofran Odt] 4 mg PO Q8HR 08/04/20 08/04/20 Unknown History Valacyclovir HCl [Valacyclovir] 500 mg PO DAILY 08/04/20 08/04/20 Unknown History cefUROXime [Ceftin] 250 mg PO Q12H #14 tablet 08/12/20 Unknown Rx clonazePAM [ Klonopin] 0.5 mg PO DAILY PRN #15 tab 08/12/20 Unknown Rx risperiDONE [RisperDAL] 0.25 mg PO BID #60 tab 08/12/20 Unknown Rx Moxifloxacin 0.5% [Vigamox] 1 drops OP Q8H 7 Days #1 bottle 08/13/20 Unknown Rx ED Physical Exam - General General appearance: alert, in no apparent distress - Head Head exam: Present: atraumatic, normocephalic - Eye Eye exam: Present: PERRL, EOMI, conjunctival injection (left conjunctival injection, no signs of ulceration or foreign body, pt was able to remove her co ntact lens without difficulty). Absent: periorbital swelling, periorbital tenderness Pupils: Present: normal accommodation - ENT ENT exam: Present: mucous membranes moist - Respiratory Respiratory exam: Absent: respiratory distress, accessory muscle use - Neurological Exam Neurological exam: Present: alert, oriented X3 - Psychiatric Psychiatric exam: Present: normal affect, normal mood - Skin Skin exam: Present: warm, dry, intact ED Medical Decision Making - Medical Decision Making Patient is a 40-year-old female presents emergency room with complaints of left eye irritation that began yesterday. She states that she has associated green/yellow mucus drainage. She states that she has constant watering. She states that she has a high pain and photosensitivity. She denies getting anything into the eye. She states that she does wear contact lenses and currently on cement. She denies any vision changes. She has a past medical history of bipolar, denies any SI or HI. She has an allergy to sulfa and Geodon. VSS on paper chart, her chart was made during downtime on exam: left conjunctival injection, no signs of ulceration or foreign body, pt was able to remove her contact lens without difficulty, PERRLA, EOMI, no pain with EOMI Examination appears consistent with conjunctivitis, no signs of periorbital or preseptal cellulitis, no visualized signs of ulceration or foreign body at this time Patient given prescription for moxifloxacin eyedrops given that patient is a contact lens user. Advised patient to please use medication as prescribed. Follow-up with communications assistant. Follow-up with your primary care doctor. Return to emergency room for any new or worsening symptoms. Avoid rubbing the eyes. Please wash your hands frequently. Do not put your contacts lens back in, you may wear eyeglasses until your conjunctivitis has resolved. - Differential Diagnosis conjunctivitis, iritis, ulceration, foreign body, eye irritation, allergies Critical care attestation.: If time is entered above; I have spent that time in minutes in the direct care of this critically ill patient, excluding procedure time. ED Disposition Clinical Impression: Conjunctivitis Qualifiers: Conjunctivitis type: acute Acute conjunctivitis type: unspecified Laterality: left Qualified Code(s): H10.32 - Unspecified acute conjunctivitis, left eye Disposition: DC- TO HOME OR SELFCARE Is pt being admited?: No Does the pt Need Aspirin: No Condition: Stable Instructions: Conjunctivitis (ED) Additional Instructions: please use medication as prescribed. Follow-up with communications assistant. Follow- up with your primary care doctor. Return to emergency room for any new or worsening symptoms. Avoid rubbing the eyes. Please wash your hands frequently. Do not put your contacts lens back in, you may wear eyeglasses until your conjunctivitis has resolved. Prescriptions: Moxifloxacin 0.5% [Vigamox] 1 drops OP Q8H 7 Days #1 bottle Referrals: ALLAN MCCARTY MD [Staff Physician] - 2-3 Days [facility] [Provider Group] - 2-3 Days RAYSA RENNRE MD [Staff Physician] - 2-3 Days [facility] [Provider Group] - 2-3 Days Time of Disposition: 16:31 Print Language: LUX[place]
== END 2020-08-13 16:47 | disposition home or self-care (01) ==
LOC: ED 16:24
DX: H10.9 Unspecified conjunctivitis (principal); F31.9 Bipolar disorder, unspecified; Z21 Asymptomatic human immunodeficiency virus [HIV] infection status; Z98.51 Tubal ligation status; Z98.890 Other specified postprocedural states; Z79.1 Long term (current) use of non-steroidal anti-inflammatories (NSAID); Z79.899 Other long term (current) drug therapy; Z88.2 Allergy status to sulfonamides; Z88.8 Allergy status to other drugs, medicaments and biological substances
CPT/HCPCS: 99282

== ENCOUNTER 2020-08-16 00:26 | Emergency (ER) | payer MEDICAID ==
--- NOTE | 2020-08-16 05:37 | Emergency Department Report ---
ED General Adult HPI - General Chief complaint: Sore Throat Stated complaint: SCRATCHY,ITCHY THROAT Time Seen by Provider: 08/16/20 05:26 Source: patient Mode of arrival: Ambulatory Limitations: No Limitations - History of Present Illness Initial comments: 40-year-old -[place] female presents to the emergency department complaining of a continued issue of reemerging sore and itchy throat of an unknown etiology. Currently she has been present for the last 3 days and she is current on an antibiotic for another issue. She reports no hemoptysis no hematemesis no hematochezia, no wheezing, no dysphagia but does have occasional odynophagia. She reports no sour or acidic taste in the posterior pharynx. There is no fevers, chills, sweats, chest pain, wheezing, stridor, voice change, drooling and she states she still able to tolerate oral Severity scale (0 -10): 0 Improves with: cold therapy Worsens with: eating Associated Symptoms: denies: confusion, chest pain, cough, loss of appetite, shortness of breath, syncope, weakness - Related Data Home Medications Medication Instructions Recorded Confirmed Last Taken Bictegrav/Emtricit/Tenofov Ala 1 tab PO DAILY 08/04/20 08/04/20 Unknown [Biktarvy 50-200-25 mg (Nf)] Dextroamphetamine/Amphetamine 20 mg PO DAILY 08/04/20 08/04/20 Unknown [Adderall Xr 20 mg Capsule] Ibuprofen [Motrin] 600 mg PO Q8H PRN 08/04/20 08/04/20 Unknown Methocarbamol [Robaxin] 500 mg PO BID PRN 08/04/20 08/04/20 Unknown Ondansetron [Zofran Odt] 4 mg PO Q8HR 08/04/20 08/04/20 Unknown Valacyclovir HCl [Valacyclovir] 500 mg PO DAILY 08/04/20 08/04/20 Unknown Previous Rx's Medication Instructions Recorded Last Taken Type QUEtiapine [SEROquel] 200 mg PO QHS #14 tablet 01/04/19 Unknown Rx risperiDONE [RisperDAL] 0.5 mg PO BID #60 tablet 10/26/19 Unknown Rx traMADoL [Ultram] 50 mg PO Q6HR PRN #10 tablet 02/27/20 Unknown Rx Fluconazole [Diflucan TAB] 100 mg PO QDAY #7 tablet 08/04/20 Unknown Rx Magnesium Oxide [Mag-Ox] 400 mg PO QDAY #30 tablet 08/04/20 Unknown Rx Nitrofurantoin [place]/M-Cryst 100 mg PO Q12HR #14 capsule 08/04/20 Unknown Rx [Macrobid CAP] cefUROXime [Ceftin] 250 mg PO Q12H #14 tablet 08/12/20 Unknown Rx clonazePAM [ Klonopin] 0.5 mg PO DAILY PRN #15 tab 08/12/20 Unknown Rx risperiDONE [RisperDAL] 0.25 mg PO BID #60 tab 08/12/20 Unknown Rx Moxifloxacin 0.5% [Vigamox] 1 drops OP Q8H 7 Days #1 bottle 08/13/20 Unknown Rx Fluticasone [Flonase] 1 spray NS QDAY #1 bottle 08/16/20 Unknown Rx Omeprazole 40 mg PO DAILY #30 capsule. 08/16/20 Unknown Rx dexAMETHasone [Decadron] 4 mg PO HS #120 udc 08/16/20 Unknown Rx Allergies Allergy/AdvReac Type Severity Reaction Status Date / Time Sulfa (Sulfonamide Allergy Swelling Verified 02/27/20 05:15 Antibiotics) sulfamethoxazole Allergy Swelling Verified 02/27/20 05:15 [From Bactrim] trimethoprim [From Bactrim] Allergy Swelling Verified 02/27/20 05:15 ziprasidone [From Geodon] Allergy Unknown Verified 02/27/20 05:15 ED Review of Systems ROS: Stated complaint: SCRATCHY,ITCHY THROAT Other details as noted in HPI Comment: All other systems reviewed and negative ED Past Medical Hx - Past Medical History Previous Medical History?: Yes Hx Hypertension: No Hx Psychiatric Treatment: Yes (PTSD, BIPOLAR, ADHD,anxiety) Hx Asthma: No Hx HIV: Yes (Last CD4 800's 07/19/2019) Additional medical history: ezcema - Surgical History Past Surgical History?: Yes Hx Coronary Stent: No Additional Surgical History: D&C. breast implants. wisdom teeth removed. tubal ligation - Social History Smoking Status: Current Every Day Smoker Substance Use Type: None - Medications Home Medications: Home Medications Medication Instructions Recorded Confirmed Last Taken Type QUEtiapine [SEROquel] 200 mg PO QHS #14 tablet 01/04/19 08/04/20 Unknown Rx risperiDONE [RisperDAL] 0.5 mg PO BID #60 tablet 10/26/19 08/04/20 Unknown Rx traMADoL [Ultram] 50 mg PO Q6HR PRN #10 tablet 02/27/20 08/04/20 Unknown Rx Bictegrav/Emtricit/Tenofov [place] 1 tab PO DAILY 08/04/20 08/04/20 Unknown History [Biktarvy 50-200-25 mg (Nf)] Dextroamphetamine/Amphetamine 20 mg PO DAILY 08/04/20 08/04/20 Unknown History [Adderall Xr 20 mg Capsule] Fluconazole [Diflucan TAB] 100 mg PO QDAY #7 tablet 08/04/20 Unknown Rx Ibuprofen [Motrin] 600 mg PO Q8H PRN 08/04/20 08/04/20 Unknown History Magnesium Oxide [Mag-Ox] 400 mg PO QDAY #30 tablet 08/04/20 Unknown Rx Methocarbamol [Robaxin] 500 mg PO BID PRN 08/04/20 08/04/20 Unknown History Nitrofurantoin [place]/M-Cryst 100 mg PO Q12HR #14 capsule 08/04/20 Unknown Rx [Macrobid CAP] Ondansetron [Zofran Odt] 4 mg PO Q8HR 08/04/20 08/04/20 Unknown History Valacyclovir HCl [Valacyclovir] 500 mg PO DAILY 08/04/20 08/04/20 Unknown History cefUROXime [Ceftin] 250 mg PO Q12H #14 tablet 08/12/20 Unknown Rx clonazePAM [ Klonopin] 0.5 mg PO DAILY PRN #15 tab 08/12/20 Unknown Rx risperiDONE [RisperDAL] 0.25 mg PO BID #60 tab 08/12/20 Unknown Rx Moxifloxacin 0.5% [Vigamox] 1 drops OP Q8H 7 Days #1 bottle 08/13/20 Unknown Rx Fluticasone [Flonase] 1 spray NS QDAY #1 bottle 08/16/20 Unknown Rx Omeprazole 40 mg PO DAILY #30 capsule. 08/16/20 Unknown Rx dexAMETHasone [Decadron] 4 mg PO HS #120 udc 08/16/20 Unknown Rx ED Physical Exam - General Limitations: No Limitations General appearance: alert, in no apparent distress - Head Head exam: Present: atraumatic, normocephalic - Eye Eye exam: Present: normal appearance - ENT ENT exam: Present: mucous membranes moist, other (Pharynx has some mild erythema airway patent tongue and uvula are midline. Normal size. No drooling no vomiting.) - Neck Neck exam: Present: normal inspection. Absent: lymphadenopathy - Respiratory Respiratory exam: Present: normal lung sounds bilaterally. Absent: respiratory distress - Cardiovascular Cardiovascular Exam: Present: regular rate, normal rhythm. Absent: systolic murmur, diastolic murmur, rubs, gallop - GI/Abdominal GI/Abdominal exam: Present: soft, normal bowel sounds - Extremities Exam Extremities exam: Present: normal inspection - Back Exam Back exam: Present: normal inspection - Neurological Exam Neurological exam: Present: alert, oriented X3 - Psychiatric Psychiatric exam: Present: normal affect, normal mood - Skin Skin exam: Present: warm, dry, intact, normal color. Absent: rash ED Course Vital Signs 08/16/20 01:14 EDT Temperature 98.6 F Pulse Rate 106 H Respiratory 18 Rate Blood Pressure 158/90 [Left] O2 Sat by Pulse 100 Oximetry Critical care attestation.: If time is entered above; I have spent that time in minutes in the direct care of this critically ill patient, excluding procedure time. ED Disposition Clinical Impression: Pharyngitis Disposition: DC- TO HOME OR SELFCARE Is pt being admited?: No Does the pt Need Aspirin: No Condition: Stable Instructions: Pharyngitis (ED) Prescriptions: dexAMETHasone [Decadron] 4 mg PO HS #120 udc Fluticasone [Flonase] 1 spray NS QDAY #1 bottle Omeprazole 40 mg PO DAILY #30 capsule. Referrals: PRIMARY CARE [Primary Care Provider] - 3-5 Days [facility] [Provider Group] - 3-5 Days
[2020-08-16 05:58] VITALS: BP 132/78
== END 2020-08-16 05:58 | disposition home or self-care (01) ==
LOC: ED 00:26
DX: J02.9 Acute pharyngitis, unspecified (principal); F31.9 Bipolar disorder, unspecified; F41.9 Anxiety disorder, unspecified; F17.200 Nicotine dependence, unspecified, uncomplicated; Z21 Asymptomatic human immunodeficiency virus [HIV] infection status; Z98.890 Other specified postprocedural states; Z98.51 Tubal ligation status; Z79.1 Long term (current) use of non-steroidal anti-inflammatories (NSAID); Z79.899 Other long term (current) drug therapy; Z88.2 Allergy status to sulfonamides; Z88.8 Allergy status to other drugs, medicaments and biological substances
CPT/HCPCS: 99282

== ENCOUNTER 2020-09-04 00:43 | Emergency (ER) | payer MEDICAID ==
[2020-09-04] MEDS ORDERED: IBUPROFEN 800 MG TAB PO ONE (02:41)
[2020-09-04] MEDS ORDERED: diphenhydrAMINE 25 MG CAP PO ONE (02:41)
--- NOTE | 2020-09-04 03:34 | Emergency Department Report ---
ED General Adult HPI - General Chief complaint: Abdominal Pain Stated complaint: SHORTNESS OF BREATH CRAMPS BURNING EYES Time Seen by Provider: 09/04/20 02:39 Source: patient, EMS Mode of arrival: Stretcher Limitations: No Limitations - History of Present Illness Initial comments: Patient is a 40-year-old female who presents for complaint of anxiety attack. Patient has history of anxiety, patient denies SI or HI. States she is out of her albuterol inhaler, states abdominal cramps last menstrual cycle 3 weeks ago, and itchy eyes, symptoms are exacerbated by stress. Symptoms are relieved by nothing tried. Symptoms are rated at 3/10 at this time. Patient is alert oriented x3 patient is tolerating p.o. intake without nausea vomiting patient denies wheezing, stridor ,or chest pain. - Related Data Home Medications Medication Instructions Recorded Confirmed Last Taken Bictegrav/Emtricit/Tenofov [place] 1 tab PO DAILY 08/04/20 08/04/20 Unknown [Biktarvy 50-200-25 mg (Nf)] Dextroamphetamine/Amphetamine 20 mg PO DAILY 08/04/20 08/04/20 Unknown [Adderall Xr 20 mg Capsule] Ibuprofen [Motrin] 600 mg PO Q8H PRN 08/04/20 08/04/20 Unknown Methocarbamol [Robaxin] 500 mg PO BID PRN 08/04/20 08/04/20 Unknown Ondansetron [Zofran Odt] 4 mg PO Q8HR 08/04/20 08/04/20 Unknown Valacyclovir HCl [Valacyclovir] 500 mg PO DAILY 08/04/20 08/04/20 Unknown Previous Rx's Medication Instructions Recorded Last Taken Type QUEtiapine [SEROquel] 200 mg PO QHS #14 tablet 01/04/19 Unknown Rx risperiDONE [RisperDAL] 0.5 mg PO BID #60 tablet 10/26/19 Unknown Rx traMADoL [Ultram] 50 mg PO Q6HR PRN #10 tablet 02/27/20 Unknown Rx Fluconazole [Diflucan TAB] 100 mg PO QDAY #7 tablet 08/04/20 Unknown Rx Magnesium Oxide [Mag-Ox] 400 mg PO QDAY #30 tablet 08/04/20 Unknown Rx Nitrofurantoin [place]/M-Cryst 100 mg PO Q12HR #14 capsule 08/04/20 Unknown Rx [Macrobid CAP] cefUROXime [Ceftin] 250 mg PO Q12H #14 tablet 08/12/20 Unknown Rx clonazePAM [ Klonopin] 0.5 mg PO DAILY PRN #15 tab 08/12/20 Unknown Rx risperiDONE [RisperDAL] 0.25 mg PO BID #60 tab 08/12/20 Unknown Rx Moxifloxacin 0.5% [Vigamox] 1 drops OP Q8H 7 Days #1 bottle 08/13/20 Unknown Rx Fluticasone [Flonase] 1 spray NS QDAY #1 bottle 08/16/20 Unknown Rx Omeprazole 40 mg PO DAILY #30 capsule. 08/16/20 Unknown Rx dexAMETHasone [Decadron] 4 mg PO HS #120 udc 08/16/20 Unknown Rx Ibuprofen [Motrin 800 MG tab] 800 mg PO Q8HR PRN #30 tablet 09/04/20 Unknown Rx diphenhydrAMINE [Benadryl CAP] 25 mg PO Q8HR PRN #15 capsule 09/04/20 Unknown Rx Allergies Allergy/AdvReac Type Severity Reaction Status Date / Time Sulfa (Sulfonamide Allergy Swelling Verified 02/27/20 05:15 Antibiotics) sulfamethoxazole Allergy Swelling Verified 02/27/20 05:15 [From Bactrim] trimethoprim [From Bactrim] Allergy Swelling Verified 02/27/20 05:15 ziprasidone [From Geodon] Allergy Unknown Verified 02/27/20 05:15 ED Review of Systems ROS: Stated complaint: SHORTNESS OF BREATH CRAMPS BURNING EYES Other details as noted in HPI Constitutional: denies: chills, fever Eyes: other (itchy eyes ). denies: eye pain, eye discharge, vision change ENT: denies: ear pain, throat pain Respiratory: no symptoms reported. denies: cough, wheezing Cardiovascular: denies: chest pain, palpitations Endocrine: no symptoms reported Gastrointestinal: abdominal pain (abd cramping ). denies: nausea, vomiting, diarrhea Genitourinary: denies: urgency, dysuria, frequency, hematuria, discharge Musculoskeletal: denies: back pain, joint swelling, arthralgia Skin: denies: rash, lesions Neurological: denies: headache, weakness, paresthesias, vertigo Psychiatric: denies: anxiety, depression Hematological/Lymphatic: denies: easy bleeding, easy bruising ED Past Medical Hx - Past Medical History Previous Medical History?: Yes Hx Hypertension: No Hx Psychiatric Treatment: Yes (PTSD, BIPOLAR, ADHD,anxiety) Hx Asthma: No Hx HIV: Yes (Last CD4 800's 07/19/2019) Additional medical history: ezcema - Surgical History Past Surgical History?: Yes Hx Coronary Stent: No Additional Surgical History: D&C. breast implants. wisdom teeth removed. tubal ligation - Social History Smoking Status: Never Smoker Substance Use Type: None - Medications Home Medications: Home Medications Medication Instructions Recorded Confirmed Last Taken Type QUEtiapine [SEROquel] 200 mg PO QHS #14 tablet 01/04/19 08/04/20 Unknown Rx risperiDONE [RisperDAL] 0.5 mg PO BID #60 tablet 10/26/19 08/04/20 Unknown Rx traMADoL [Ultram] 50 mg PO Q6HR PRN #10 tablet 02/27/20 08/04/20 Unknown Rx Bictegrav/Emtricit/Tenofov [place] 1 tab PO DAILY 08/04/20 08/04/20 Unknown History [Biktarvy 50-200-25 mg (Nf)] Dextroamphetamine/Amphetamine 20 mg PO DAILY 08/04/20 08/04/20 Unknown History [Adderall Xr 20 mg Capsule] Fluconazole [Diflucan TAB] 100 mg PO QDAY #7 tablet 08/04/20 Unknown Rx Ibuprofen [Motrin] 600 mg PO Q8H PRN 08/04/20 08/04/20 Unknown History Magnesium Oxide [Mag-Ox] 400 mg PO QDAY #30 tablet 08/04/20 Unknown Rx Methocarbamol [Robaxin] 500 mg PO BID PRN 08/04/20 08/04/20 Unknown History Nitrofurantoin [place]/M-Cryst 100 mg PO Q12HR #14 capsule 08/04/20 Unknown Rx [Macrobid CAP] Ondansetron [Zofran Odt] 4 mg PO Q8HR 08/04/20 08/04/20 Unknown History Valacyclovir HCl [Valacyclovir] 500 mg PO DAILY 08/04/20 08/04/20 Unknown History cefUROXime [Ceftin] 250 mg PO Q12H #14 tablet 08/12/20 Unknown Rx clonazePAM [ Klonopin] 0.5 mg PO DAILY PRN #15 tab 08/12/20 Unknown Rx risperiDONE [RisperDAL] 0.25 mg PO BID #60 tab 08/12/20 Unknown Rx Moxifloxacin 0.5% [Vigamox] 1 drops OP Q8H 7 Days #1 bottle 08/13/20 Unknown Rx Fluticasone [Flonase] 1 spray NS QDAY #1 bottle 08/16/20 Unknown Rx Omeprazole 40 mg PO DAILY #30 capsule. 08/16/20 Unknown Rx dexAMETHasone [Decadron] 4 mg PO HS #120 udc 08/16/20 Unknown Rx Ibuprofen [Motrin 800 MG tab] 800 mg PO Q8HR PRN #30 tablet 09/04/20 Unknown Rx diphenhydrAMINE [Benadryl CAP] 25 mg PO Q8HR PRN #15 capsule 09/04/20 Unknown Rx ED Physical Exam - General Limitations: No Limitations General appearance: alert, in no apparent distress - Head Head exam: Present: atraumatic, normocephalic - Eye Eye exam: Present: PERRL, EOMI. Absent: conjunctival injection, nystagmus Pupils: Present: normal accommodation - ENT ENT exam: Present: normal orophraynx, mucous membranes moist - Neck Neck exam: Present: normal inspection, full ROM - Respiratory Respiratory exam: Present: normal lung sounds bilaterally. Absent: respiratory distress, wheezes, stridor, chest wall tenderness - Cardiovascular Cardiovascular Exam: Present: normal rhythm, normal heart sounds. Absent: systolic murmur, diastolic murmur, rubs, gallop - GI/Abdominal GI/Abdominal exam: Present: soft, normal bowel sounds. Absent: distended, tenderness, guarding, rebound, rigid, bruit, hernia - Rectal Rectal exam: Present: deferred - Extremities Exam Extremities exam: Present: normal inspection, full ROM, normal capillary refill. Absent: tenderness - Back Exam Back exam: Present: normal inspection, full ROM. Absent: tenderness, CVA tenderness (R), CVA tenderness (L) - Neurological Exam Neurological exam: Present: alert, oriented X3, CN II-XII intact, normal gait - Psychiatric Psychiatric exam: Present: anxious. Absent: agitated, homicidal ideation, suicidal ideation - Skin Skin exam: Present: warm, dry, intact, normal color. Absent: rash ED Course Vital Signs 09/04/20 09/04/20 01:30 04:28 Temperature 98.6 F Pulse Rate 122 H 94 H Respiratory 18 17 Rate Blood Pressure 152/102 Blood Pressure 156/102 [Right] O2 Sat by Pulse 99 98 Oximetry ED Medical Decision Making - Medical Decision Making Patient is alert oriented x3 patient with no respiratory distress at this time lung sounds are clear throughout abdomen soft nontender , there is no SI, no HI. Visual acuity is 20/30 bilaterally eyes are PERRLA EOMI conjunctival are clear there is no drainage bilaterally , there is no eye pain or swelling. Patient endorses premenstrual cramping, and stress. Patient does have a psychiatrist Dr. Stiles advised to see same in the next 2 to 3 days. Patient with no acute distress at this time. Vital signs repeated and noted with no tachycardia. Patient will be DC'd home in stable condition with prescriptions for ibuprofen and Benadryl as needed for abdominal cramping and itching Critical care attestation.: If time is entered above; I have spent that time in minutes in the direct care of this critically ill patient, excluding procedure time. ED Disposition Clinical Impression: Stress at home, Abdominal cramping Disposition: DC-01 TO HOME OR SELFCARE Is pt being admited?: No Does the pt Need Aspirin: No Condition: Stable Instructions: Abdominal Pain, Adult, Managing Anxiety, Adult, Abdominal Pain (ED) Prescriptions: diphenhydrAMINE [Benadryl CAP] 25 mg PO Q8HR PRN #15 capsule PRN Reason: Itching Ibuprofen [Motrin 800 MG tab] 800 mg PO Q8HR PRN #30 tablet PRN Reason: pain Referrals: [facility] [Outside] - 3-5 Days Forms: Work/School Release Form(ED) Time of Disposition: 04:47
[2020-09-04 04:29] VITALS: BP 156/102
== END 2020-09-04 05:18 | disposition home or self-care (01) ==
LOC: ED 00:43
DX: F43.9 Reaction to severe stress, unspecified (principal); R10.9 Unspecified abdominal pain; F31.9 Bipolar disorder, unspecified; F41.9 Anxiety disorder, unspecified; Z21 Asymptomatic human immunodeficiency virus [HIV] infection status; Z98.51 Tubal ligation status; Z98.890 Other specified postprocedural states; Z88.2 Allergy status to sulfonamides; Z88.8 Allergy status to other drugs, medicaments and biological substances
CPT/HCPCS: 99283

== ENCOUNTER 2020-10-04 15:36 | Emergency (ER) | payer MEDICAID ==
[2020-10-04 15:53] VITALS: BP 135/95
[2020-10-05] MEDS ORDERED: TETRACAINE 0.5% OPHTH SOLN 4ML ONE (08:47)
[2020-10-05] MEDS ORDERED: BALANCED SALT IRRIG (BSS) OPHTH SOLN 15 ML ONE (08:47)
[2020-10-05] MEDS ORDERED: FLUORESCEIN 1 MG STRIP OP ONE ×2 (08:47→11:36)
--- NOTE | 2020-10-05 09:10 | Emergency Department Report ---
ED General Adult HPI - General Chief complaint: Back Pain/Injury Stated complaint: LFT EYE RED Time Seen by Provider: 10/05/20 08:38 Source: patient Mode of arrival: Ambulatory Limitations: No Limitations - History of Present Illness Initial comments: This is a 40-year-old female with history of psychiatric disorder and HIV. She is here for left eye redness only. She states that she has had pinkeye in the past. She denies any trauma. She denies any acute change in vision. He has no other complaint. -: Gradual, days(s) Associated Symptoms: denies other symptoms - Related Data Home Medications Medication Instructions Recorded Confirmed Last Taken Bictegrav/Emtricit/Tenofov [place] 1 tab PO DAILY 08/04/20 08/04/20 Unknown [Biktarvy 50-200-25 mg (Nf)] Dextroamphetamine/Amphetamine 20 mg PO DAILY 08/04/20 08/04/20 Unknown [Adderall Xr 20 mg Capsule] Ibuprofen [Motrin] 600 mg PO Q8H PRN 08/04/20 08/04/20 Unknown Methocarbamol [Robaxin] 500 mg PO BID PRN 08/04/20 08/04/20 Unknown Ondansetron [Zofran Odt] 4 mg PO Q8HR 08/04/20 08/04/20 Unknown Valacyclovir HCl [Valacyclovir] 500 mg PO DAILY 08/04/20 08/04/20 Unknown Previous Rx's Medication Instructions Recorded Last Taken Type QUEtiapine [SEROquel] 200 mg PO QHS #14 tablet 01/04/19 Unknown Rx risperiDONE [RisperDAL] 0.5 mg PO BID #60 tablet 10/26/19 Unknown Rx traMADoL [Ultram] 50 mg PO Q6HR PRN #10 tablet 02/27/20 Unknown Rx Fluconazole [Diflucan TAB] 100 mg PO QDAY #7 tablet 08/04/20 Unknown Rx Magnesium Oxide [Mag-Ox] 400 mg PO QDAY #30 tablet 08/04/20 Unknown Rx Nitrofurantoin [place]/M-Cryst 100 mg PO Q12HR #14 capsule 08/04/20 Unknown Rx [Macrobid CAP] cefUROXime [Ceftin] 250 mg PO Q12H #14 tablet 08/12/20 Unknown Rx clonazePAM [ Klonopin] 0.5 mg PO DAILY PRN #15 tab 08/12/20 Unknown Rx risperiDONE [RisperDAL] 0.25 mg PO BID #60 tab 08/12/20 Unknown Rx Moxifloxacin 0.5% [Vigamox] 1 drops OP Q8H 7 Days #1 bottle 08/13/20 Unknown Rx Fluticasone [Flonase] 1 spray NS QDAY #1 bottle 08/16/20 Unknown Rx Omeprazole 40 mg PO DAILY #30 capsule. 08/16/20 Unknown Rx dexAMETHasone [Decadron] 4 mg PO HS #120 udc 08/16/20 Unknown Rx Ibuprofen [Motrin 800 MG tab] 800 mg PO Q8HR PRN #30 tablet 09/04/20 Unknown Rx diphenhydrAMINE [Benadryl CAP] 25 mg PO Q8HR PRN #15 capsule 09/04/20 Unknown Rx Erythromycin [Erythromycin Ophth 1 applic OS BID #1 tube 10/05/20 Unknown Rx Oint] HYDROcodone/APAP 5-325 [[place] 1 each PO Q4HR PRN #7 tablet 10/05/20 Unknown Rx 5/325] Allergies Allergy/AdvReac Type Severity Reaction Status Date / Time Sulfa (Sulfonamide Allergy Swelling Verified 02/27/20 05:15 Antibiotics) sulfamethoxazole Allergy Swelling Verified 02/27/20 05:15 [From Bactrim] trimethoprim [From Bactrim] Allergy Swelling Verified 02/27/20 05:15 ziprasidone [From Geodon] Allergy Unknown Verified 02/27/20 05:15 ED Review of Systems ROS: Stated complaint: LFT EYE RED Other details as noted in HPI Comment: All other systems reviewed and negative ED Past Medical Hx - Past Medical History Previous Medical History?: No Hx Hypertension: No Hx Psychiatric Treatment: Yes (PTSD, BIPOLAR, ADHD,anxiety) Hx Asthma: No Hx HIV: Yes (Last CD4 800's 07/19/2019) Additional medical history: ezcema - Surgical History Past Surgical History?: Yes Hx Coronary Stent: No Additional Surgical History: D&C. breast implants. wisdom teeth removed. tubal ligation - Social History Smoking Status: Never Smoker Substance Use Type: None - Medications Home Medications: Home Medications Medication Instructions Recorded Confirmed Last Taken Type QUEtiapine [SEROquel] 200 mg PO QHS #14 tablet 01/04/19 08/04/20 Unknown Rx risperiDONE [RisperDAL] 0.5 mg PO BID #60 tablet 10/26/19 08/04/20 Unknown Rx traMADoL [Ultram] 50 mg PO Q6HR PRN #10 tablet 02/27/20 08/04/20 Unknown Rx Bictegrav/Emtricit/Tenofov [place] 1 tab PO DAILY 08/04/20 08/04/20 Unknown History [Biktarvy 50-200-25 mg (Nf)] Dextroamphetamine/Amphetamine 20 mg PO DAILY 08/04/20 08/04/20 Unknown History [Adderall Xr 20 mg Capsule] Fluconazole [Diflucan TAB] 100 mg PO QDAY #7 tablet 08/04/20 Unknown Rx Ibuprofen [Motrin] 600 mg PO Q8H PRN 08/04/20 08/04/20 Unknown History Magnesium Oxide [Mag-Ox] 400 mg PO QDAY #30 tablet 08/04/20 Unknown Rx Methocarbamol [Robaxin] 500 mg PO BID PRN 08/04/20 08/04/20 Unknown History Nitrofurantoin [place]/M-Cryst 100 mg PO Q12HR #14 capsule 08/04/20 Unknown Rx [Macrobid CAP] Ondansetron [Zofran Odt] 4 mg PO Q8HR 08/04/20 08/04/20 Unknown History Valacyclovir HCl [Valacyclovir] 500 mg PO DAILY 08/04/20 08/04/20 Unknown History cefUROXime [Ceftin] 250 mg PO Q12H #14 tablet 08/12/20 Unknown Rx clonazePAM [ Klonopin] 0.5 mg PO DAILY PRN #15 tab 08/12/20 Unknown Rx risperiDONE [RisperDAL] 0.25 mg PO BID #60 tab 08/12/20 Unknown Rx Moxifloxacin 0.5% [Vigamox] 1 drops OP Q8H 7 Days #1 bottle 08/13/20 Unknown Rx Fluticasone [Flonase] 1 spray NS QDAY #1 bottle 08/16/20 Unknown Rx Omeprazole 40 mg PO DAILY #30 capsule. 08/16/20 Unknown Rx dexAMETHasone [Decadron] 4 mg PO HS #120 udc 08/16/20 Unknown Rx Ibuprofen [Motrin 800 MG tab] 800 mg PO Q8HR PRN #30 tablet 09/04/20 Unknown Rx diphenhydrAMINE [Benadryl CAP] 25 mg PO Q8HR PRN #15 capsule 09/04/20 Unknown Rx Erythromycin [Erythromycin Ophth 1 applic OS BID #1 tube 10/05/20 Unknown Rx Oint] HYDROcodone/APAP 5-325 [[place] 1 each PO Q4HR PRN #7 tablet 10/05/20 Unknown Rx 5/325] ED Physical Exam - General Limitations: Physical Limitation, Other (Poorly cooperative) General appearance: alert - Head Head exam: Present: atraumatic, normocephalic - Eye Eye exam: Present: other (Conjunctiva is quite injected. On fluorescein exam the cornea is spared. There appears to be some conjunctival uptake at about 6:00. The anterior chamber is clear and deep.) Pupils: Present: normal accommodation - ENT ENT exam: Present: mucous membranes moist - Neck Neck exam: Present: normal inspection - Respiratory Respiratory exam: Absent: respiratory distress - GI/Abdominal GI/Abdominal exam: Absent: distended - Neurological Exam Neurological exam: Present: CN II-XII intact. Absent: motor sensory deficit - Psychiatric Psychiatric exam: Present: anxious, flat affect - Skin Skin exam: Present: warm, dry, intact, normal color. Absent: rash ED Course Vital Signs 10/04/20 15:51 Temperature 97.7 F Pulse Rate 107 H Respiratory 18 Rate Blood Pressure 135/95 [Right] O2 Sat by Pulse 100 Oximetry Critical care attestation.: If time is entered above; I have spent that time in minutes in the direct care of this critically ill patient, excluding procedure time. ED Disposition Clinical Impression: Conjunctivitis, left eye Qualifiers: Conjunctivitis type: acute Acute conjunctivitis type: unspecified Qualified Code(s): H10.32 - Unspecified acute conjunctivitis, left eye Abrasion of sclera of left eye Qualifiers: Encounter type: initial encounter Qualified Code(s): S05.8X2A - Other injuries of left eye and orbit, initial encounter HIV (human immunodeficiency virus infection) Qualifiers: HIV symptom status: asymptomatic Qualified Code(s): Z21 - Asymptomatic human immunodeficiency virus [HIV] infection status Disposition: DC-01 TO HOME OR SELFCARE Is pt being admited?: No Does the pt Need Aspirin: No Condition: Stable Instructions: How to Use Eye Drops and Eye Ointments, Viral Conjunctivitis, Adult Additional Instructions: Follow-up with [facility]. See referral. Eye problems in patients with HIV can be considerably more complicated. See your infectious disease specialist as well. Prescriptions: Erythromycin [Erythromycin Ophth Oint] 1 applic OS BID #1 tube HYDROcodone/APAP 5-325 [[place] 5/325] 1 each PO Q4HR PRN #7 tablet PRN Reason: Pain Referrals: PRIMARY CARE, [Primary Care Provider] - 3-5 Days RAYSA RENNER MD [Staff Physician] - 24 Hours Time of Disposition: 09:09
[2020-10-05] MEDS ORDERED: TETRACAINE 0.5% OPHTH SOLN 4ML OU ONE (11:36)
[2020-10-05] MEDS ORDERED: BALANCED SALT IRRIG (BSS) OPHTH SOLN 15 ML OU ONE (11:36)
== END 2020-10-05 09:45 | disposition home or self-care (01) ==
LOC: ED 15:36
DX: S00.212A Abrasion of left eyelid and periocular area, initial encounter (principal); H10.9 Unspecified conjunctivitis; F31.9 Bipolar disorder, unspecified; Z98.890 Other specified postprocedural states; Z21 Asymptomatic human immunodeficiency virus [HIV] infection status; Z79.1 Long term (current) use of non-steroidal anti-inflammatories (NSAID); Z79.2 Long term (current) use of antibiotics; Z79.899 Other long term (current) drug therapy; Z88.2 Allergy status to sulfonamides; Z88.8 Allergy status to other drugs, medicaments and biological substances; X58.XXXA Exposure to other specified factors, initial encounter; Y93.89 Activity, other specified; Y92.89 Other specified places as the place of occurrence of the external cause; Y99.8 Other external cause status
CPT/HCPCS: 99281

== ENCOUNTER 2020-10-15 20:35 | Emergency (ER) | payer MEDICAID ==
--- NOTE | 2020-10-15 20:53 | Event Note ---
ED Screening Note ED Screening Note: co sob; thinks its trauma; my eyes hurt; my doctor is closed so I keep coming here rambling; random thoughts no hi no si will not tell me meds- states my MD is closed see pmh here 10/04 This initial assessment/diagnostic orders/clinical plan/treatment(s) is/are subject to change based on patients health status, clinical progression and re- assessment by fellow clinical providers in the ED. Further treatment and workup at subsequent clinical providers discretion. Patient/guardian urged not to elope from the ED as their condition may be serious if not clinically assessed and managed. Initial orders include: ARIAS min
[2020-10-15 21:22] LABS: Basophils % (Auto) 0.4 % (0.0-1.8); Eosinophils % (Auto) 0.6 % (0.0-4.3); Hemoglobin 12.5 gm/dl (10.1-14.3); Lymphocytes # (Auto) 1.4 K/mm3 (1.2-5.4); Lymphocytes % (Auto) 25.3 % (13.4-35.0); Monocytes # (Auto) 0.4 K/mm3 (0.0-0.8)
[2020-10-15 21:34] LABS: Alanine Aminotransferase 19 units/L (7-56); Albumin 4.1 g/dL (3.9-5); BUN/Creatinine Ratio 10; Blood Urea Nitrogen 10 mg/dL (7-17); Calcium 9.4 mg/dL (8.4-10.2); Hemolysis Index 1
[2020-10-15 21:40] LABS: Hematocrit 38.9 % (30.3-42.9); Mean Corpuscular HGB Conc 33 % (30-34); Mean Corpuscular Volume 82 fl (79-97); Platelet Count 326 K/mm3 (140-440); Red Blood Count 4.73 M/mm3 (3.65-5.03); Red Cell Distribution Width 17.2 % (13.2-15.2)
[2020-10-16 00:03] LABS: Bacteria,Urine 1+ /HPF (Negative); Bilirubin,Urine NEG (Negative); Blood,Urine NEG (Negative); Color,Urine Amber (Yellow); Mucus,Urine 3+ /HPF
[2020-10-16 00:06] LABS: Amphetamine Screen,Urine PRESUMPTIVE POSITIVE; Benzodiazepines Screen,Urine PRESUMPTIVE NEGATIVE; Cannabinoid Screen,Urine PRESUMPTIVE NEGATIVE; Cocaine Screen,Urine PRESUMPTIVE NEGATIVE; Methadone Screen,Urine PRESUMPTIVE NEGATIVE; Opiate Screen,Urine PRESUMPTIVE NEGATIVE
[2020-10-16] MEDS ORDERED: DEXAMETHASONE 4 MG TAB PO ONE (03:24)
[2020-10-16] MEDS ORDERED: ALBUTEROL 2.5 MG/3 ML NEBU IH ONE (03:24)
--- NOTE | 2020-10-16 03:32 | Emergency Department Report ---
HPI - General Chief Complaint: Dyspnea/Respdistress Time Seen by Provider: 10/15/20 20:53 - HPI HPI: This is a 40-year-old -[place] female presents to the emergency department with a complaint of shortness of breath that has been going on for "a while." She admits to a mixed dry and productive cough. She denies any fever, chest pain, lower extremity swelling, nausea, vomiting or diaphoresis. The patient says "I think I need an albuterol pump for my asthma." The patient has a past medical history that includes hypertension, HIV, anxiety, PTSD, bipolar disorder, ADHD. No recent travel or sick contacts at home. No known exposure to anyone with COVID-19. Secondly, the patient also says that she wants to speak to a social secretary. The patient does appear anxious at points, but denies any suicidal or homicidal ideations. She has not taken anything for symptoms prior to presentation. ED Past Medical Hx - Past Medical History Previous Medical History?: Yes Hx Hypertension: No Hx Psychiatric Treatment: Yes (PTSD, BIPOLAR, ADHD,anxiety) Hx Asthma: No Hx HIV: Yes (Last CD4 800's 07/19/2019) Additional medical history: ezcema - Surgical History Past Surgical History?: Yes Hx Coronary Stent: No Additional Surgical History: D&C. breast implants. wisdom teeth removed. tubal ligation - Social History Smoking Status: Never Smoker Substance Use Type: None - Medications Home Medications: Home Medications Medication Instructions Recorded Confirmed Last Taken Type QUEtiapine [SEROquel] 200 mg PO QHS #14 tablet 01/04/19 08/04/20 Unknown Rx risperiDONE [RisperDAL] 0.5 mg PO BID #60 tablet 10/26/19 08/04/20 Unknown Rx traMADoL [Ultram] 50 mg PO Q6HR PRN #10 tablet 02/27/20 08/04/20 Unknown Rx Bictegrav/Emtricit/Tenofov [place] 1 tab PO DAILY 08/04/20 08/04/20 Unknown History [Biktarvy 50-200-25 mg (Nf)] Dextroamphetamine/Amphetamine 20 mg PO DAILY 08/04/20 08/04/20 Unknown History [Adderall Xr 20 mg Capsule] Fluconazole [Diflucan TAB] 100 mg PO QDAY #7 tablet 08/04/20 Unknown Rx Ibuprofen [Motrin] 600 mg PO Q8H PRN 08/04/20 08/04/20 Unknown History Magnesium Oxide [Mag-Ox] 400 mg PO QDAY #30 tablet 08/04/20 Unknown Rx Methocarbamol [Robaxin] 500 mg PO BID PRN 08/04/20 08/04/20 Unknown History Nitrofurantoin [place]/M-Cryst 100 mg PO Q12HR #14 capsule 08/04/20 Unknown Rx [Macrobid CAP] Ondansetron [Zofran Odt] 4 mg PO Q8HR 08/04/20 08/04/20 Unknown History Valacyclovir HCl [Valacyclovir] 500 mg PO DAILY 08/04/20 08/04/20 Unknown History cefUROXime [Ceftin] 250 mg PO Q12H #14 tablet 08/12/20 Unknown Rx clonazePAM [ Klonopin] 0.5 mg PO DAILY PRN #15 tab 08/12/20 Unknown Rx risperiDONE [RisperDAL] 0.25 mg PO BID #60 tab 08/12/20 Unknown Rx Moxifloxacin 0.5% [Vigamox] 1 drops OP Q8H 7 Days #1 bottle 08/13/20 Unknown Rx Fluticasone [Flonase] 1 spray NS QDAY #1 bottle 08/16/20 Unknown Rx Omeprazole 40 mg PO DAILY #30 capsule. 08/16/20 Unknown Rx dexAMETHasone [Decadron] 4 mg PO HS #120 udc 08/16/20 Unknown Rx Ibuprofen [Motrin 800 MG tab] 800 mg PO Q8HR PRN #30 tablet 09/04/20 Unknown Rx diphenhydrAMINE [Benadryl CAP] 25 mg PO Q8HR PRN #15 capsule 09/04/20 Unknown Rx Erythromycin [Erythromycin Ophth 1 applic OS BID #1 tube 10/05/20 Unknown Rx Oint] HYDROcodone/APAP 5-325 [[place] 1 each PO Q4HR PRN #7 tablet 10/05/20 Unknown Rx 5/325] Albuterol Mdi (or & Nicu Only) 2 puff IH QID PRN #8.5 gram 10/16/20 Unknown Rx [ProAir HFA Inhaler] ED Review of Systems ROS: Stated complaint: PANIC ATTACK/ANXIETY Other details as noted in HPI Comment: All other systems reviewed and negative Constitutional: denies: chills, fever Eyes: denies: eye pain, vision change ENT: denies: ear pain, throat pain Respiratory: cough, shortness of breath Cardiovascular: denies: chest pain, edema Gastrointestinal: denies: abdominal pain, vomiting Genitourinary: denies: dysuria, discharge Musculoskeletal: denies: back pain, arthralgia Neurological: denies: headache, weakness Psychiatric: denies: homicidal thoughts, suicidal thoughts Physical Exam - Physical Exam Physical Exam: GENERAL: The patient is well-developed well-nourished. HENT: Normocephalic. Atraumatic. Patient has moist mucous membranes. EYES: Extraocular motions are intact. NECK: Supple. Trachea is midline. CHEST/LUNGS: Mild expiratory wheeze. No cough heard during examination. No ta chypnea or accessory muscle use. There is no respiratory distress noted. HEART/CARDIOVASCULAR: Regular. There is no tachycardia. There is no murmur. ABDOMEN: Abdomen is soft, nontender. Patient has normal bowel sounds. SKIN: Skin is warm and dry. NEURO: The patient is awake, alert, and oriented. The patient is cooperative. The patient has no focal neurologic deficits. Normal speech. MUSCULOSKELETAL: There is no tenderness or deformity. There is no limitation range of motion. ED Medical Decision Making - Lab Data Result diagrams: 10/15/20 20:56 10/15/20 20:56 - Radiology Data Radiology results: image reviewed interpreted by me: Chest x-ray does not show any acute process. There are no pleural effusions, obvious pneumonia and there is no pneumothorax. No significant cardiomegaly. - Medical Decision Making This patient presents to the emergency department with complaint of some prolonged or chronic shortness of breath. On examination she has mild expiratory wheezing. There is no cough heard during examination. Patient does not have any tachypnea or accessory muscle use and does not appear in any respiratory or acute distress. A chest x-ray was completed that did not show any pneumonia, pleural effusions, pneumothorax, focal consolidation, or any other acute process. Patient's labs have been unremarkable including CBC, metabolic panel, urinalysis and UDS, except for hypokalemia with a potassium of 3 and a urine drug screen positive for amphetamines. The patient does not appear acutely intoxicated. She was given potassium chloride for replacement. Patient was given a dose of Decadron and a nebulized breathing treatment. Upon reevaluation the mild expiratory wheezing has resolved and the patient says that she is feeling improved. She will be given a prescription for an albuterol inhaler and has been given outpatient referrals for primary care. The patient had previously mentioned that she wanted to speak to a social secretary. However we do not have a social secretary available overnight. When asked what she needs to see a social secretary for, the patient is unsure but says "I need to get my life together." The patient then also admits that it could be related to anxiety and previous "trauma." This sounds more consistent with needing psychiatric follow-up. The patient denies any suicidal or homicidal ideations. She does not exhibit any signs of acute psychosis. She was given multiple outpatient referrals for psychiatric care. Critical Care Time: No Critical care attestation.: If time is entered above; I have spent that time in minutes in the direct care of this critically ill patient, excluding procedure time. ED Disposition Clinical Impression: Shortness of breath, Hypokalemia Disposition: TO HOME OR SELFCARE Is pt being admited?: No Condition: Stable Instructions: Hypokalemia, Shortness of Breath, Adult Additional Instructions: Please follow-up with a primary care physician in the next few days. I have also given you a few different outpatient community behavioral health resources. Return to the emergency department with any worsening of your symptoms, new or concerning symptoms not addressed during this current emergency department visit, or with any acute distress. Prescriptions: Albuterol Mdi (or & Nicu Only) [ProAir HFA Inhaler] 2 puff IH QID PRN #8.5 gram PRN Reason: Shortness Of Breath Referrals: AGAPITO ESPINAL MD [Primary Care Provider] - 3-5 Days ALLAN MCCARTY MD [Staff Physician] - 3-5 Days [facility] [Provider Group] - 3-5 Days [facility] [Outside] - 3-5 Days Time of Disposition: 04:28
--- NOTE | 2020-10-16 04:15 | XRay Report ---
CHEST 2 VIEWS 0350 INDICATION / CLINICAL INFORMATION: SOB COMPARISON: 10/24/2019 FINDINGS: SUPPORT DEVICES: None. HEART / MEDIASTINUM: No significant abnormality. LUNGS / PLEURA: No significant pulmonary or pleural abnormality. No pneumothorax. ADDITIONAL FINDINGS: No significant additional findings. IMPRESSION: No significant acute abnormality Signer Name: Ric Rea MD Signed: 10/16/2020 4:11 AM Workstation Name: [id number] ([id number]
[2020-10-16] MEDS ORDERED: POTASSIUM CHLORIDE ER 20 MEQ TAB PO ONE (04:26)
[2020-10-16 04:44] VITALS: BP 122/78
== END 2020-10-16 04:37 | disposition home or self-care (01) ==
LOC: ED 20:35
DX: E87.6 Hypokalemia (principal); R06.02 Shortness of breath; Z98.890 Other specified postprocedural states; Z98.51 Tubal ligation status; Z79.899 Other long term (current) drug therapy; Z88.2 Allergy status to sulfonamides; Z88.8 Allergy status to other drugs, medicaments and biological substances
CPT/HCPCS: 36415; 71046; 80053; 80307; 81001; 84443; 84703; 85025; 94640; 99284; J8540; 80320; G0480

== ENCOUNTER 2020-10-16 06:46 | Emergency (ER) | payer MEDICAID ==
[2020-10-16 07:40] VITALS: BP 164/112
--- NOTE | 2020-10-16 10:46 | Emergency Department Report ---
ED Medical Clearance HPI - General Chief complaint: Upper Respiratory Infection Stated complaint: PANIC ATTACK/ANXIETY Time Seen by Provider: 10/16/20 07:43 Source: patient Mode of arrival: Ambulatory - History of Present Illness Initial comments: 40 yo female seen in this ER last night for Anxiety. She is currently with no complaints stating she is waiting on her ride to home. Pt not with any new complaints at this time. She then abruptly left stating that her ride is outside and she had to leave. Traumatic Symptoms: denies traumatic injury Treatments Prior to Arrival: none Home medications: Home Medications Medication Instructions Recorded Confirmed Last Taken Bictegrav/Emtricit/Tenofov [place] 1 tab PO DAILY 08/04/20 08/04/20 Unknown [Biktarvy 50-200-25 mg (Nf)] Dextroamphetamine/Amphetamine 20 mg PO DAILY 08/04/20 08/04/20 Unknown [Adderall Xr 20 mg Capsule] Ibuprofen [Motrin] 600 mg PO Q8H PRN 08/04/20 08/04/20 Unknown Methocarbamol [Robaxin] 500 mg PO BID PRN 08/04/20 08/04/20 Unknown Ondansetron [Zofran Odt] 4 mg PO Q8HR 08/04/20 08/04/20 Unknown Valacyclovir HCl [Valacyclovir] 500 mg PO DAILY 08/04/20 08/04/20 Unknown Previous Rx's Medication Instructions Recorded Last Taken Type QUEtiapine [SEROquel] 200 mg PO QHS #14 tablet 01/04/19 Unknown Rx risperiDONE [RisperDAL] 0.5 mg PO BID #60 tablet 10/26/19 Unknown Rx traMADoL [Ultram] 50 mg PO Q6HR PRN #10 tablet 02/27/20 Unknown Rx Fluconazole [Diflucan TAB] 100 mg PO QDAY #7 tablet 08/04/20 Unknown Rx Magnesium Oxide [Mag-Ox] 400 mg PO QDAY #30 tablet 08/04/20 Unknown Rx Nitrofurantoin [place]/M-Cryst 100 mg PO Q12HR #14 capsule 08/04/20 Unknown Rx [Macrobid CAP] cefUROXime [Ceftin] 250 mg PO Q12H #14 tablet 08/12/20 Unknown Rx clonazePAM [ Klonopin] 0.5 mg PO DAILY PRN #15 tab 08/12/20 Unknown Rx risperiDONE [RisperDAL] 0.25 mg PO BID #60 tab 08/12/20 Unknown Rx Moxifloxacin 0.5% [Vigamox] 1 drops OP Q8H 7 Days #1 bottle 08/13/20 Unknown Rx Fluticasone [Flonase] 1 spray NS QDAY #1 bottle 08/16/20 Unknown Rx Omeprazole 40 mg PO DAILY #30 capsule. 08/16/20 Unknown Rx dexAMETHasone [Decadron] 4 mg PO HS #120 udc 08/16/20 Unknown Rx Ibuprofen [Motrin 800 MG tab] 800 mg PO Q8HR PRN #30 tablet 09/04/20 Unknown Rx diphenhydrAMINE [Benadryl CAP] 25 mg PO Q8HR PRN #15 capsule 09/04/20 Unknown Rx Erythromycin [Erythromycin Ophth 1 applic OS BID #1 tube 10/05/20 Unknown Rx Oint] HYDROcodone/APAP 5-325 [[place] 1 each PO Q4HR PRN #7 tablet 10/05/20 Unknown Rx 5/325] Albuterol Mdi (or & Nicu Only) 2 puff IH QID PRN #8.5 gram 10/16/20 Unknown Rx [ProAir HFA Inhaler] Allergies/Adverse reactions: Allergies Allergy/AdvReac Type Severity Reaction Status Date / Time Sulfa (Sulfonamide Allergy Swelling Verified 02/27/20 05:15 Antibiotics) sulfamethoxazole Allergy Swelling Verified 02/27/20 05:15 [From Bactrim] trimethoprim [From Bactrim] Allergy Swelling Verified 02/27/20 05:15 ziprasidone [From Geodon] Allergy Unknown Verified 02/27/20 05:15 ED Review of Systems ROS: Stated complaint: PANIC ATTACK/ANXIETY Other details as noted in HPI Comment: All other systems reviewed and negative ED Past Medical Hx - Past Medical History Previous Medical History?: Yes Hx Hypertension: No Hx Psychiatric Treatment: Yes (PTSD, BIPOLAR, ADHD,anxiety) Hx Asthma: No Hx HIV: Yes (Last CD4 800's 07/19/2019) Additional medical history: ezcema - Surgical History Past Surgical History?: Yes Hx Coronary Stent: No Additional Surgical History: D&C. breast implants. wisdom teeth removed. tubal ligation - Social History Smoking Status: Never Smoker Substance Use Type: None - Medications Home Medications: Home Medications Medication Instructions Recorded Confirmed Last Taken Type QUEtiapine [SEROquel] 200 mg PO QHS #14 tablet 01/04/19 08/04/20 Unknown Rx risperiDONE [RisperDAL] 0.5 mg PO BID #60 tablet 10/26/19 08/04/20 Unknown Rx traMADoL [Ultram] 50 mg PO Q6HR PRN #10 tablet 02/27/20 08/04/20 Unknown Rx Bictegrav/Emtricit/Tenofov [place] 1 tab PO DAILY 08/04/20 08/04/20 Unknown History [Biktarvy 50-200-25 mg (Nf)] Dextroamphetamine/Amphetamine 20 mg PO DAILY 08/04/20 08/04/20 Unknown History [Adderall Xr 20 mg Capsule] Fluconazole [Diflucan TAB] 100 mg PO QDAY #7 tablet 08/04/20 Unknown Rx Ibuprofen [Motrin] 600 mg PO Q8H PRN 08/04/20 08/04/20 Unknown History Magnesium Oxide [Mag-Ox] 400 mg PO QDAY #30 tablet 08/04/20 Unknown Rx Methocarbamol [Robaxin] 500 mg PO BID PRN 08/04/20 08/04/20 Unknown History Nitrofurantoin [place]/M-Cryst 100 mg PO Q12HR #14 capsule 08/04/20 Unknown Rx [Macrobid CAP] Ondansetron [Zofran Odt] 4 mg PO Q8HR 08/04/20 08/04/20 Unknown History Valacyclovir HCl [Valacyclovir] 500 mg PO DAILY 08/04/20 08/04/20 Unknown History cefUROXime [Ceftin] 250 mg PO Q12H #14 tablet 08/12/20 Unknown Rx clonazePAM [ Klonopin] 0.5 mg PO DAILY PRN #15 tab 08/12/20 Unknown Rx risperiDONE [RisperDAL] 0.25 mg PO BID #60 tab 08/12/20 Unknown Rx Moxifloxacin 0.5% [Vigamox] 1 drops OP Q8H 7 Days #1 bottle 08/13/20 Unknown Rx Fluticasone [Flonase] 1 spray NS QDAY #1 bottle 08/16/20 Unknown Rx Omeprazole 40 mg PO DAILY #30 capsule. 08/16/20 Unknown Rx dexAMETHasone [Decadron] 4 mg PO HS #120 udc 08/16/20 Unknown Rx Ibuprofen [Motrin 800 MG tab] 800 mg PO Q8HR PRN #30 tablet 09/04/20 Unknown Rx diphenhydrAMINE [Benadryl CAP] 25 mg PO Q8HR PRN #15 capsule 09/04/20 Unknown Rx Erythromycin [Erythromycin Ophth 1 applic OS BID #1 tube 10/05/20 Unknown Rx Oint] HYDROcodone/APAP 5-325 [[place] 1 each PO Q4HR PRN #7 tablet 10/05/20 Unknown Rx 5/325] Albuterol Mdi (or & Nicu Only) 2 puff IH QID PRN #8.5 gram 10/16/20 Unknown Rx [ProAir HFA Inhaler] ED Physical Exam - General Limitations: No Limitations ED Course Vital Signs 10/16/20 07:35 Temperature 98.1 F Pulse Rate 110 H Respiratory 18 Rate Blood Pressure 164/112 [Right] O2 Sat by Pulse 97 Oximetry ED Medical Decision Making - Medical Decision Making Patient in no distress she left before I could even do any further evaluation she reports that she has no complaints and that her ride is here and she needed to leave patient left the ER with steady gait in no distress ED Disposition Clinical Impression: Encounter for medical screening examination Disposition: Z MED SCREENING EXAM-LEFT Is pt being admited?: No Does the pt Need Aspirin: No Condition: Stable Referrals: PRIMARY CARE, [Primary Care Provider] - 3-5 Days
== END 2020-10-16 08:38 | disposition left against medical advice (07) ==
LOC: ED 06:46
DX: F41.9 Anxiety disorder, unspecified (principal); Z00.00 Encounter for general adult medical examination without abnormal findings

== ENCOUNTER 2021-02-03 02:29 | Emergency (ER) | payer MEDICAID ==
[2021-02-03 02:38] VITALS: BP 149/110
--- NOTE | 2021-02-03 02:49 | Emergency Department Report ---
- General Chief Complaint: Upper Respiratory Infection Stated Complaint: SOB/SORE THROAT/STOMACH PAIN PUI?: No Source: patient Mode of arrival: Ambulatory Limitations: No Limitations - History of Present Illness Initial Comments: Patient is a 40-year-old -[place]auritan[place] female with a history of anxiety and depression, bipolar disorder, HIV, PTSD and ADHD who presents to the ED with complaint of acute onset persistent nasal and sinus congestion, frontal sinus pressure, frontal headache, sore throat, bilateral ear pressure, itchy eyes, nausea and low back pain for the last 5 days, worse in the last 2 days. Patient states that she has been taking atmn-ehf-unlqdut medication with no relief. Patient denies chest pain, shortness of breath, dizziness, syncope, fever, chills, abdominal pain, vomiting, dysuria, urinary frequency and urgency, diarrhea or vaginal discharge. MD Complaint: cough, sore throat, rhinorrhea, nasal congestion, other (Bilateral itchy eyes; nausea,; urinary frequency and urgency) -: Sudden, days(s) (5) Severity: moderate Severity scale (0 -10): 4 Quality: burning, aching Consistency: intermittent Improves With: nothing Worsens With: nothing Associated Symptoms: denies other symptoms, myalgias, rhinorrhea, nasal congestion, sore throat, cough, shortness of breath, nausea, ear pain. denies: fever, chills, diaphoresis, headache, stiff neck, chest pain, abdominal pain, diarrhea, dysuria, rash, confusion, right sweats, weight loss, hoarseness - Related Data Home Medications Medication Instructions Recorded Confirmed Last Taken Bictegrav/Emtricit/Tenofov [place] 1 tab PO DAILY 08/04/20 08/04/20 Unknown [Biktarvy 50-200-25 mg (Nf)] Dextroamphetamine/Amphetamine 20 mg PO DAILY 08/04/20 08/04/20 Unknown [Adderall Xr 20 mg Capsule] Ibuprofen [Motrin] 600 mg PO Q8H PRN 08/04/20 08/04/20 Unknown Methocarbamol [Robaxin] 500 mg PO BID PRN 08/04/20 08/04/20 Unknown Ondansetron [Zofran Odt] 4 mg PO Q8HR 08/04/20 08/04/20 Unknown Valacyclovir HCl [Valacyclovir] 500 mg PO DAILY 08/04/20 08/04/20 Unknown Previous Rx's Medication Instructions Recorded Last Taken Type QUEtiapine [SEROquel] 200 mg PO QHS #14 tablet 01/04/19 Unknown Rx risperiDONE [RisperDAL] 0.5 mg PO BID #60 tablet 10/26/19 Unknown Rx traMADoL [Ultram] 50 mg PO Q6HR PRN #10 tablet 02/27/20 Unknown Rx Fluconazole [Diflucan TAB] 100 mg PO QDAY #7 tablet 08/04/20 Unknown Rx Magnesium Oxide [Mag-Ox] 400 mg PO QDAY #30 tablet 08/04/20 Unknown Rx Nitrofurantoin [place]/M-Cryst 100 mg PO Q12HR #14 capsule 08/04/20 Unknown Rx [Macrobid CAP] cefUROXime [Ceftin] 250 mg PO Q12H #14 tablet 08/12/20 Unknown Rx clonazePAM [ Klonopin] 0.5 mg PO DAILY PRN #15 tab 08/12/20 Unknown Rx risperiDONE [RisperDAL] 0.25 mg PO BID #60 tab 08/12/20 Unknown Rx Moxifloxacin 0.5% [Moxifloxacin] 1 drops OP Q8H 7 Days #1 bottle 08/13/20 Unknown Rx Fluticasone [Flonase] 1 spray NS QDAY #1 bottle 08/16/20 Unknown Rx Omeprazole 40 mg PO DAILY #30 capsule. 08/16/20 Unknown Rx dexAMETHasone [Decadron] 4 mg PO HS #120 udc 08/16/20 Unknown Rx Ibuprofen [Motrin 800 MG tab] 800 mg PO Q8HR PRN #30 tablet 09/04/20 Unknown Rx diphenhydrAMINE [Benadryl CAP] 25 mg PO Q8HR PRN #15 capsule 09/04/20 Unknown Rx Erythromycin [Erythromycin Ophth 1 applic OS BID #1 tube 10/05/20 Unknown Rx Oint] HYDROcodone/APAP 5-325 [[place] 1 each PO Q4HR PRN #7 tablet 10/05/20 Unknown Rx 5/325] Albuterol Mdi (or & Nicu Only) 2 puff IH QID PRN #8.5 gram 10/16/20 Unknown Rx [ProAir HFA Inhaler] Azithromycin [Zithromax Z-MERT] 250 mg PO DAILY #6 tablet 02/03/21 Unknown Rx Benzonatate [Tessalon Perles] 100 mg PO Q8HR #30 capsule 02/03/21 Unknown Rx Cetirizine HCl [Zyrtec 10mg tab] 10 mg PO DAILY #30 tablet 02/03/21 Unknown Rx Fluticasone [Flonase] 1 spray NS QDAY #1 bottle 02/03/21 Unknown Rx Ibuprofen [Motrin] 600 mg PO Q8H PRN #24 tablet 02/03/21 Unknown Rx Allergies Allergy/AdvReac Type Severity Reaction Status Date / Time Sulfa (Sulfonamide Allergy Swelling Verified 02/27/20 05:15 Antibiotics) sulfamethoxazole Allergy Swelling Verified 02/27/20 05:15 [From Bactrim] trimethoprim [From Bactrim] Allergy Swelling Verified 02/27/20 05:15 ziprasidone [From Geodon] Allergy Unknown Verified 02/27/20 05:15 ED Review of Systems ROS: Stated complaint: SOB/SORE THROAT/STOMACH PAIN Other details as noted in HPI Constitutional: denies: chills, fever Eyes: denies: eye pain, eye discharge, vision change ENT: ear pain, throat pain, congestion Respiratory: cough, shortness of breath. denies: wheezing Cardiovascular: denies: chest pain, palpitations Endocrine: no symptoms reported Gastrointestinal: denies: abdominal pain, nausea, diarrhea Genitourinary: urgency, frequency. denies: dysuria, discharge Musculoskeletal: denies: back pain, joint swelling, arthralgia Skin: denies: rash, lesions Neurological: denies: headache, weakness, paresthesias Psychiatric: anxiety. denies: depression Hematological/Lymphatic: denies: easy bleeding, easy bruising ED Past Medical Hx - Past Medical History Previous Medical History?: Yes Hx Hypertension: No Hx Psychiatric Treatment: Yes (PTSD, BIPOLAR, ADHD,anxiety) Hx Asthma: No Hx HIV: Yes (Last CD4 800's 07/19/2019) Additional medical history: ezcema - Surgical History Past Surgical History?: Yes Hx Coronary Stent: No Additional Surgical History: D&C. breast implants. wisdom teeth removed. tubal ligation - Social History Smoking Status: Never Smoker Substance Use Type: None - Medications Home Medications: Home Medications Medication Instructions Recorded Confirmed Last Taken Type QUEtiapine [SEROquel] 200 mg PO QHS #14 tablet 01/04/19 08/04/20 Unknown Rx risperiDONE [RisperDAL] 0.5 mg PO BID #60 tablet 10/26/19 08/04/20 Unknown Rx traMADoL [Ultram] 50 mg PO Q6HR PRN #10 tablet 02/27/20 08/04/20 Unknown Rx Bictegrav/Emtricit/Tenofov [place] 1 tab PO DAILY 08/04/20 08/04/20 Unknown History [Biktarvy 50-200-25 mg (Nf)] Dextroamphetamine/Amphetamine 20 mg PO DAILY 08/04/20 08/04/20 Unknown History [Adderall Xr 20 mg Capsule] Fluconazole [Diflucan TAB] 100 mg PO QDAY #7 tablet 08/04/20 Unknown Rx Ibuprofen [Motrin] 600 mg PO Q8H PRN 08/04/20 08/04/20 Unknown History Magnesium Oxide [Mag-Ox] 400 mg PO QDAY #30 tablet 08/04/20 Unknown Rx Methocarbamol [Robaxin] 500 mg PO BID PRN 08/04/20 08/04/20 Unknown History Nitrofurantoin [place]/M-Cryst 100 mg PO Q12HR #14 capsule 08/04/20 Unknown Rx [Macrobid CAP] Ondansetron [Zofran Odt] 4 mg PO Q8HR 08/04/20 08/04/20 Unknown History Valacyclovir HCl [Valacyclovir] 500 mg PO DAILY 08/04/20 08/04/20 Unknown History cefUROXime [Ceftin] 250 mg PO Q12H #14 tablet 08/12/20 Unknown Rx clonazePAM [ Klonopin] 0.5 mg PO DAILY PRN #15 tab 08/12/20 Unknown Rx risperiDONE [RisperDAL] 0.25 mg PO BID #60 tab 08/12/20 Unknown Rx Moxifloxacin 0.5% [Moxifloxacin] 1 drops OP Q8H 7 Days #1 bottle 08/13/20 Unknown Rx Fluticasone [Flonase] 1 spray NS QDAY #1 bottle 08/16/20 Unknown Rx Omeprazole 40 mg PO DAILY #30 capsule. 08/16/20 Unknown Rx dexAMETHasone [Decadron] 4 mg PO HS #120 udc 08/16/20 Unknown Rx Ibuprofen [Motrin 800 MG tab] 800 mg PO Q8HR PRN #30 tablet 09/04/20 Unknown Rx diphenhydrAMINE [Benadryl CAP] 25 mg PO Q8HR PRN #15 capsule 09/04/20 Unknown Rx Erythromycin [Erythromycin Ophth 1 applic OS BID #1 tube 10/05/20 Unknown Rx Oint] HYDROcodone/APAP 5-325 [[place] 1 each PO Q4HR PRN #7 tablet 10/05/20 Unknown Rx 5/325] Albuterol Mdi (or & Nicu Only) 2 puff IH QID PRN #8.5 gram 10/16/20 Unknown Rx [ProAir HFA Inhaler] Azithromycin [Zithromax Z-MERT] 250 mg PO DAILY #6 tablet 02/03/21 Unknown Rx Benzonatate [Tessalon Perles] 100 mg PO Q8HR #30 capsule 02/03/21 Unknown Rx Cetirizine HCl [Zyrtec 10mg tab] 10 mg PO DAILY #30 tablet 02/03/21 Unknown Rx Fluticasone [Flonase] 1 spray NS QDAY #1 bottle 02/03/21 Unknown Rx Ibuprofen [Motrin] 600 mg PO Q8H PRN #24 tablet 02/03/21 Unknown Rx ED Physical Exam - General Limitations: No Limitations General appearance: alert, in no apparent distress - Head Head exam: Present: atraumatic, normocephalic, normal inspection - Eye Eye exam: Present: normal appearance, PERRL, EOMI Pupils: Present: normal accommodation - ENT ENT exam: Present: normal orophraynx, mucous membranes moist, TM's normal bilaterally, normal external ear exam, other (Grossly congested nasal passages) - Neck Neck exam: Present: normal inspection, full ROM - Respiratory Respiratory exam: Present: normal lung sounds bilaterally. Absent: respiratory distress, wheezes, rales, rhonchi, chest wall tenderness, accessory muscle use, decreased breath sounds, prolonged expiratory - Cardiovascular Cardiovascular Exam: Present: normal rhythm, tachycardia, normal heart sounds. Absent: systolic murmur, diastolic murmur, rubs, gallop - GI/Abdominal GI/Abdominal exam: Present: soft, normal bowel sounds. Absent: tenderness, guarding, rebound, hyperactive bowel sounds, hypoactive bowel sounds, organomegaly - Extremities Exam Extremities exam: Present: normal inspection, full ROM, normal capillary refill - Back Exam Back exam: Present: normal inspection, full ROM. Absent: tenderness, CVA tenderness (R), CVA tenderness (L), muscle spasm, paraspinal tenderness - Neurological Exam Neurological exam: Present: alert, oriented X3, CN II-XII intact, normal gait, reflexes normal - Psychiatric Psychiatric exam: Present: normal affect, normal mood, anxious - Skin Skin exam: Present: warm, dry, intact, normal color. Absent: rash ED Course Vital Signs 02/03/21 02:33 Temperature 98.7 F Pulse Rate 106 H Respiratory 18 Rate Blood Pressure 149/110 O2 Sat by Pulse 100 Oximetry ED Medical Decision Making - Radiology Data Radiology results: report reviewed, image reviewed [facility] [address] [place] [address] XRay Report Signed Patient: FLORINDA RIVERA MR #: [id number] : 1980 Acct:[id number] Age/Sex: 40 / F ADM Date: 02/03/21 Loc: ED Attending Dr: Ordering Physician: COLLEEN KEY Date of Service: 02/03/21 Procedure(s): XR chest 1V ap Accession Number(s): [id number] cc: COLLEEN KEY Fluoro Time In Minutes: CHEST 1 VIEW INDICATION: cough. COMPARISON: 10/16/2020 FINDINGS: SUPPORT DEVICES: None. HEART: Within normal limits. LUNGS/PLEURA: No acute air space or interstitial disease. ADDITIONAL FINDINGS: None. IMPRESSION: 1. No acute findings. Signer Name: Oliver Stahl MD Signed: 02/03/2021 3:20 AM Workstation Name: [id number] Transcribed By: JW Dictated By: Oliver Stahl MD Electronically Authenticated By: Oliver Stahl MD Signed Date/Time: 02/03/21319 DD/ 9 TD/TT: - Medical Decision Making This is a 40-year-old -[place]auritan[place] female with a history of anxiety and depression, bipolar disorder, HIV, PTSD and ADHD who presents to the ED with complaint of acute onset persistent nasal and sinus congestion, frontal sinus pressure, frontal headache, sore throat, bilateral ear pressure, itchy eyes, nausea and low back pain for the last 5 days, worse in the last 2 days. Patient states that she has been taking iyds-ded-valoprs medication with no relief. In the ED, patient is alert and oriented x3 and is not in any distress, but anxious, afebrile and tachycardic in triage. Chest x-ray shows no acute cardiopulmonary abnormalities or pneumonitis. Urinalysis results and nonactionable. On reevaluation, patient's tachycardia improved significantly to 100 bpm and the patient kept pacing back and forth in the ED. This tachycardia is likely due to patient's chronic anxiety as she continued to pace [id number] talking to herself. Patient symptoms are likely due to acute upper respiratory infection versus sinusitis and acute bronchitis. Patient was therefore discharged home on medications and advised to follow-up with her primary care physician in 5 to 7 days for reevaluation or return to the ED imme diately if symptoms get worse. - Differential Diagnosis URI; Sinusitis; Pharyngitis; Anxiety; allergic rhinitis; bronchitis Critical care attestation.: If time is entered above; I have spent that time in minutes in the direct care of this critically ill patient, excluding procedure time. ED Disposition Clinical Impression: Acute upper respiratory infection, Acute allergic rhinitis Acute bronchitis Qualifiers: Bronchitis organism: other organism Qualified Code(s): J20.8 - Acute bronchitis due to other specified organisms Disposition: DC-01 TO HOME OR SELFCARE Is pt being admited?: No Does the pt Need Aspirin: No Condition: Stable Instructions: Allergic Rhinitis, Adult, [id number], Acute Bronchitis, Adult, Yqsl-yr-[id number], Upper Respiratory Infection, Adult, Iion-os-Hxzh, Acute Bronchitis (ED) Additional Instructions: Chest x-ray shows no acute cardiopulmonary abnormalities or pneumonitis. Your symptoms are likely due to acute allergic rhinitis, sinusitis, upper respiratory infection and bronchitis. Therefore take medication with food, drink plenty of fluids and follow-up with your primary care physician in 5 to 7 days for reevaluation. Return to the ED immediately if symptoms get worse. Prescriptions: Fluticasone [Flonase] 1 spray NS QDAY #1 bottle Ibuprofen [Motrin] 600 mg PO Q8H PRN #24 tablet PRN Reason: Pain Benzonatate [Tessalon Perles] 100 mg PO Q8HR #30 capsule Azithromycin [Zithromax Z-MERT] 250 mg PO DAILY #6 tablet Cetirizine HCl [Zyrtec 10mg tab] 10 mg PO DAILY #30 tablet Referrals: [facility] [Provider Group] - 3-5 Days Time of Disposition: 05:15 Print Language: LITHUANIAN
--- NOTE | 2021-02-03 03:25 | XRay Report ---
CHEST 1 VIEW INDICATION: cough. COMPARISON: 10/16/2020 FINDINGS: SUPPORT DEVICES: None. HEART: Within normal limits. LUNGS/PLEURA: No acute air space or interstitial disease. ADDITIONAL FINDINGS: None. IMPRESSION: 1. No acute findings. Signer Name: Oliver Stahl MD Signed: 02/03/2021 3:20 AM Workstation Name: [id number]
[2021-02-03 04:56] LABS: Bacteria,Urine 1+ /HPF (Negative); Bilirubin,Urine NEG (Negative); Blood,Urine NEG (Negative); Color,Urine Yellow (Yellow); Hyaline Casts,Urine 1 /LPF; Mucus,Urine FEW /HPF; Urobilinogen,Urine < 2.0 mg/dL (<2.0)
[2021-02-03 04:57] LABS: HCG Qualitative,Urine Negative (Negative)
== END 2021-02-03 06:17 | disposition home or self-care (01) ==
LOC: ED 02:29
DX: J06.9 Acute upper respiratory infection, unspecified (principal); J30.9 Allergic rhinitis, unspecified; J20.9 Acute bronchitis, unspecified; F31.9 Bipolar disorder, unspecified; F41.9 Anxiety disorder, unspecified; Z21 Asymptomatic human immunodeficiency virus [HIV] infection status; Z98.890 Other specified postprocedural states; Z79.899 Other long term (current) drug therapy; Z88.2 Allergy status to sulfonamides; Z98.51 Tubal ligation status
CPT/HCPCS: 71045; 81001; 81025

== ENCOUNTER 2021-02-03 12:07 | Emergency (ER) | payer MEDICAID ==
[2021-02-03 13:14] VITALS: BP 150/103
--- NOTE | 2021-02-03 13:57 | Emergency Department Report ---
Eye Injury/Foreign Body - HPI Eye Location: Bilateral Severity: Mild Tetanus Status: Up to Date Eye Symptoms: Eye Pain: No, Blurred Vision: No, Eye Redness: No, Grinding/Hammering Metal: No, Used Eye Protection: No, Contact Lens Use: Yes, Recalls Injury: No, Photophobia: No <MIKHAIL DEJESUS - Last Filed: 02/03/21 13:52> ED Review of Systems ROS: Stated complaint: EYE DRY ITCHING Other details as noted in HPI <GARYJANESMIKHAIL Crawford - Last Filed: 02/03/21 13:52> ROS: Stated complaint: EYE DRY ITCHING Other details as noted in HPI <IRAIDA SHIPMAN - Last Filed: 02/03/21 18:45> ED Past Medical Hx - Past Medical History Hx Hypertension: No Hx Psychiatric Treatment: Yes (PTSD, BIPOLAR, ADHD,anxiety) Hx Asthma: No Hx HIV: Yes (Last CD4 800's 07/19/2019) Additional medical history: ezcema - Surgical History Hx Coronary Stent: No Additional Surgical History: D&C. breast implants. wisdom teeth removed. tubal ligation - Social History Smoking Status: Never Smoker Substance Use Type: None <MIKHAIL DEJESUS - Last Filed: 02/03/21 13:52> <IRAIDA SHIPMAN - Last Filed: 02/03/21 18:45> - Medications Home Medications: Home Medications Medication Instructions Recorded Confirmed Last Taken Type QUEtiapine [SEROquel] 200 mg PO QHS #14 tablet 01/04/19 08/04/20 Unknown Rx risperiDONE [RisperDAL] 0.5 mg PO BID #60 tablet 10/26/19 08/04/20 Unknown Rx traMADoL [Ultram] 50 mg PO Q6HR PRN #10 tablet 02/27/20 08/04/20 Unknown Rx Bictegrav/Emtricit/Tenofov [place] 1 tab PO DAILY 08/04/20 08/04/20 Unknown History [Biktarvy 50-200-25 mg (Nf)] Dextroamphetamine/Amphetamine 20 mg PO DAILY 08/04/20 08/04/20 Unknown History [Adderall Xr 20 mg Capsule] Fluconazole [Diflucan TAB] 100 mg PO QDAY #7 tablet 08/04/20 Unknown Rx Ibuprofen [Motrin] 600 mg PO Q8H PRN 08/04/20 08/04/20 Unknown History Magnesium Oxide [Mag-Ox] 400 mg PO QDAY #30 tablet 08/04/20 Unknown Rx Methocarbamol [Robaxin] 500 mg PO BID PRN 08/04/20 08/04/20 Unknown History Nitrofurantoin [place]/M-Cryst 100 mg PO Q12HR #14 capsule 08/04/20 Unknown Rx [Macrobid CAP] Ondansetron [Zofran Odt] 4 mg PO Q8HR 08/04/20 08/04/20 Unknown History Valacyclovir HCl [Valacyclovir] 500 mg PO DAILY 08/04/20 08/04/20 Unknown History cefUROXime [Ceftin] 250 mg PO Q12H #14 tablet 08/12/20 Unknown Rx clonazePAM [ Klonopin] 0.5 mg PO DAILY PRN #15 tab 08/12/20 Unknown Rx risperiDONE [RisperDAL] 0.25 mg PO BID #60 tab 08/12/20 Unknown Rx Moxifloxacin 0.5% [Moxifloxacin] 1 drops OP Q8H 7 Days #1 bottle 08/13/20 Unknown Rx Fluticasone [Flonase] 1 spray NS QDAY #1 bottle 08/16/20 Unknown Rx Omeprazole 40 mg PO DAILY #30 capsule. 08/16/20 Unknown Rx dexAMETHasone [Decadron] 4 mg PO HS #120 udc 08/16/20 Unknown Rx Ibuprofen [Motrin 800 MG tab] 800 mg PO Q8HR PRN #30 tablet 09/04/20 Unknown Rx diphenhydrAMINE [Benadryl CAP] 25 mg PO Q8HR PRN #15 capsule 09/04/20 Unknown Rx Erythromycin [Erythromycin Ophth 1 applic OS BID #1 tube 10/05/20 Unknown Rx Oint] HYDROcodone/APAP 5-325 [[place] 1 each PO Q4HR PRN #7 tablet 10/05/20 Unknown Rx 5/325] Albuterol Mdi (or & Nicu Only) 2 puff IH QID PRN #8.5 gram 10/16/20 Unknown Rx [ProAir HFA Inhaler] Azithromycin [Zithromax Z-MERT] 250 mg PO DAILY #6 tablet 02/03/21 Unknown Rx Benzonatate [Tessalon Perles] 100 mg PO Q8HR #30 capsule 02/03/21 Unknown Rx Cetirizine HCl [Zyrtec 10mg tab] 10 mg PO DAILY #30 tablet 02/03/21 Unknown Rx Fluticasone [Flonase] 1 spray NS QDAY #1 bottle 02/03/21 Unknown Rx Ibuprofen [Motrin] 600 mg PO Q8H PRN #24 tablet 02/03/21 Unknown Rx Ketotifen Fumarate [Zaditor] 1 drop OP QDAY #1 bottle 02/03/21 Unknown Rx Eye Injury Exam - Exam General: Vital signs noted. No distress. Alert and acting appropriately. <MIKHAIL DEJESUS - Last Filed: 02/03/21 13:52> - Exam General: Vital signs noted. No distress. Alert and acting appropriately. <IRAIDA SHIPMAN - Last Filed: 02/03/21 18:45> ED Course Vital Signs 02/03/21 13:11 Temperature 98 F Pulse Rate 90 Respiratory 20 Rate Blood Pressure 150/103 O2 Sat by Pulse 95 Oximetry <MIKHAIL DEJESUS - Last Filed: 02/03/21 13:52> Vital Signs 02/03/21 13:11 Temperature 98 F Pulse Rate 90 Respiratory 20 Rate Blood Pressure 150/103 O2 Sat by Pulse 95 Oximetry <IRAIDA SHIPMAN - Last Filed: 02/03/21 18:45> ED Medical Decision Making - Medical Decision Making 17:30: Care of patient transferred to Iraida Shipman PA-C at change of shift pending urinalysis results. At this time, patient has still not provided a urine sample. 18:30: Patient eloped from ED without providing urine sample. <IRAIDA SHIPMAN - Last Filed: 02/03/21 18:45> Critical care attestation.: If time is entered above; I have spent that time in minutes in the direct care of this critically ill patient, excluding procedure time. <MIKHAIL DEJESUS - Last Filed: 02/03/21 13:52> Critical care attestation.: If time is entered above; I have spent that time in minutes in the direct care of this critically ill patient, excluding procedure time. <IRAIDA SHIPMAN - Last Filed: 02/03/21 18:45> ED Disposition Is pt being admited?: No Does the pt Need Aspirin: No <MIKHAIL DEJESUS - Last Filed: 02/03/21 13:52> <IRAIDA SHIPMAN - Last Filed: 02/03/21 18:45> Clinical Impression: Eloped from emergency department Disposition: ELOPED Condition: Stable Instructions: Allergic Conjunctivitis, Adult, [id number] Prescriptions: Ketotifen Fumarate [Zaditor] 1 drop OP QDAY #1 bottle Referrals: PRIMARY CARE,MD [Primary Care Provider] - 3-5 Days
== END 2021-02-03 18:12 | disposition left against medical advice (07) ==
LOC: ED 12:07
DX: H04.123 Dry eye syndrome of bilateral lacrimal glands (principal); F31.9 Bipolar disorder, unspecified; F41.9 Anxiety disorder, unspecified; Z98.890 Other specified postprocedural states; Z98.51 Tubal ligation status; Z21 Asymptomatic human immunodeficiency virus [HIV] infection status; Z88.2 Allergy status to sulfonamides; Z79.899 Other long term (current) drug therapy
CPT/HCPCS: 99281

== ENCOUNTER 2021-03-07 14:02 | Emergency (ER) | payer MEDICAID ==
[2021-03-07 15:23] VITALS: BP 161/102
--- NOTE | 2021-03-07 19:39 | Emergency Department Report ---
ED Eye Problem HPI - General Chief complaint: Eye Problems Stated complaint: BURNING IN THE LEFT EYE Source: patient, EMS Mode of arrival: Ambulatory Limitations: No Limitations - History of Present Illness Initial comments: Patient is a 40-year-old -Lao female with a history of HIV, PTSD, bipolar disorder, anxiety and depression, chronic eczema and ADHD who presents to the ED with complaint of acute onset persistent nontraumatic severe right eye pain with matting, itching and purulent discharge for the last 2 days, worse in the last 12 hours. Patient states that she has been using [id number] medication with no relief. Patient denies vision loss, vision changes, headache, traumatic injury, dizziness, syncope, neck pain, chest pain, shortness of breath, nasal and sinus congestion, nausea and vomiting or cough. MD chief complaint: eye pain (Right eye pain), eye redness (Right eye) -: Sudden, days(s) (2) Onset Description: sudden Location: right eye Place: home If Injury: none Eye Symptoms: burning, redness, pain, itching, discharge Severity: moderate Severity scale (0 -10): 5 If Pain, Quality: sharp, burning, aching Consistency: constant Associated Symptoms: none Treatments Prior to Arrival: irrigated eye, OTC eye drops - Related Data Patient Tetanus UTD: Yes Home Medications Medication Instructions Recorded Confirmed Last Taken Bictegrav/Emtricit/Tenofov [place] 1 tab PO DAILY 08/04/20 08/04/20 Unknown [Biktarvy 50-200-25 mg (Nf)] Dextroamphetamine/Amphetamine 20 mg PO DAILY 08/04/20 08/04/20 Unknown [Adderall Xr 20 mg Capsule] Methocarbamol [Robaxin] 500 mg PO BID PRN 08/04/20 08/04/20 Unknown Ondansetron [Zofran Odt] 4 mg PO Q8HR 08/04/20 08/04/20 Unknown Valacyclovir HCl [Valacyclovir] 500 mg PO DAILY 08/04/20 08/04/20 Unknown Previous Rx's Medication Instructions Recorded Last Taken Type QUEtiapine [SEROquel] 200 mg PO QHS #14 tablet 01/04/19 Unknown Rx risperiDONE [RisperDAL] 0.5 mg PO BID #60 tablet 10/26/19 Unknown Rx traMADoL [Ultram] 50 mg PO Q6HR PRN #10 tablet 02/27/20 Unknown Rx Fluconazole [Diflucan TAB] 100 mg PO QDAY #7 tablet 08/04/20 Unknown Rx Magnesium Oxide [Mag-Ox] 400 mg PO QDAY #30 tablet 08/04/20 Unknown Rx Nitrofurantoin [place]/M-Cryst 100 mg PO Q12HR #14 capsule 08/04/20 Unknown Rx [Macrobid CAP] cefUROXime [Ceftin] 250 mg PO Q12H #14 tablet 08/12/20 Unknown Rx clonazePAM [ Klonopin] 0.5 mg PO DAILY PRN #15 tab 08/12/20 Unknown Rx risperiDONE [RisperDAL] 0.25 mg PO BID #60 tab 08/12/20 Unknown Rx Moxifloxacin 0.5% 1 drops OP Q8H 7 Days #1 bottle 08/13/20 Unknown Rx Fluticasone [Flonase] 1 spray NS QDAY #1 bottle 08/16/20 Unknown Rx Omeprazole 40 mg PO DAILY #30 capsule. 08/16/20 Unknown Rx dexAMETHasone [Decadron] 4 mg PO HS #120 udc 08/16/20 Unknown Rx Ibuprofen [Motrin 800 MG tab] 800 mg PO Q8HR PRN #30 tablet 09/04/20 Unknown Rx diphenhydrAMINE [Benadryl CAP] 25 mg PO Q8HR PRN #15 capsule 09/04/20 Unknown Rx Erythromycin [Erythromycin Ophth 1 applic OS BID #1 tube 10/05/20 Unknown Rx Oint] HYDROcodone/APAP 5-325 [[place] 1 each PO Q4HR PRN #7 tablet 10/05/20 Unknown Rx 5/325] Albuterol Mdi (or & Nicu Only) 2 puff IH QID PRN #8.5 gram 10/16/20 Unknown Rx [ProAir HFA Inhaler] Azithromycin [Zithromax Z-MERT] 250 mg PO DAILY #6 tablet 02/03/21 Unknown Rx Benzonatate [Tessalon Perles] 100 mg PO Q8HR #30 capsule 02/03/21 Unknown Rx Fluticasone [Flonase] 1 spray NS QDAY #1 bottle 02/03/21 Unknown Rx Ibuprofen [Motrin] 600 mg PO Q8H PRN #24 tablet 02/03/21 Unknown Rx Ketotifen Fumarate [Zaditor] 1 drop OP QDAY #1 bottle 02/03/21 Unknown Rx Cetirizine HCl [Zyrtec 10mg tab] 10 mg PO DAILY #30 tablet 03/07/21 Unknown Rx Gentamicin 0.3% Ophth Soln 1 drops OP Q4H #5 ml 03/07/21 Unknown Rx Ibuprofen [Motrin 600 MG tab] 600 mg PO Q8H PRN #20 03/07/21 Unknown Rx Allergies Allergy/AdvReac Type Severity Reaction Status Date / Time Sulfa (Sulfonamide Allergy Swelling Verified 02/27/20 05:15 Antibiotics) sulfamethoxazole Allergy Swelling Verified 02/27/20 05:15 [From Bactrim] trimethoprim [From Bactrim] Allergy Swelling Verified 02/27/20 05:15 ziprasidone [From Geodon] Allergy Unknown Verified 02/27/20 05:15 ED Review of Systems ROS: Stated complaint: BURNING IN THE LEFT EYE Other details as noted in HPI Constitutional: denies: chills, fever Eyes: eye pain (Right eye pain), eye discharge. denies: vision change ENT: denies: ear pain, throat pain Respiratory: denies: cough, shortness of breath, wheezing Cardiovascular: denies: chest pain, palpitations Endocrine: no symptoms reported Gastrointestinal: denies: abdominal pain, nausea, diarrhea Genitourinary: denies: urgency, dysuria, discharge Musculoskeletal: denies: back pain, joint swelling, arthralgia Skin: denies: rash, lesions Neurological: denies: headache, weakness, paresthesias Psychiatric: denies: anxiety, depression Hematological/Lymphatic: denies: easy bleeding, easy bruising ED Past Medical Hx - Past Medical History Previous Medical History?: Yes Hx Hypertension: No Hx Psychiatric Treatment: Yes (PTSD, BIPOLAR, ADHD,anxiety) Hx Asthma: No Hx HIV: Yes (Last CD4 800's 07/19/2019) Additional medical history: ezcema - Surgical History Hx Coronary Stent: No Additional Surgical History: D&C. breast implants. wisdom teeth removed. tubal ligation - Social History Smoking Status: Never Smoker Substance Use Type: None - Medications Home Medications: Home Medications Medication Instructions Recorded Confirmed Last Taken Type QUEtiapine [SEROquel] 200 mg PO QHS #14 tablet 01/04/19 08/04/20 Unknown Rx risperiDONE [RisperDAL] 0.5 mg PO BID #60 tablet 10/26/19 08/04/20 Unknown Rx traMADoL [Ultram] 50 mg PO Q6HR PRN #10 tablet 02/27/20 08/04/20 Unknown Rx Bictegrav/Emtricit/Tenofov [place] 1 tab PO DAILY 08/04/20 08/04/20 Unknown History [Biktarvy 50-200-25 mg (Nf)] Dextroamphetamine/Amphetamine 20 mg PO DAILY 08/04/20 08/04/20 Unknown History [Adderall Xr 20 mg Capsule] Fluconazole [Diflucan TAB] 100 mg PO QDAY #7 tablet 08/04/20 Unknown Rx Magnesium Oxide [Mag-Ox] 400 mg PO QDAY #30 tablet 08/04/20 Unknown Rx Methocarbamol [Robaxin] 500 mg PO BID PRN 08/04/20 08/04/20 Unknown History Nitrofurantoin [place]/M-Cryst 100 mg PO Q12HR #14 capsule 08/04/20 Unknown Rx [Macrobid CAP] Ondansetron [Zofran Odt] 4 mg PO Q8HR 08/04/20 08/04/20 Unknown History Valacyclovir HCl [Valacyclovir] 500 mg PO DAILY 08/04/20 08/04/20 Unknown History cefUROXime [Ceftin] 250 mg PO Q12H #14 tablet 08/12/20 Unknown Rx clonazePAM [ Klonopin] 0.5 mg PO DAILY PRN #15 tab 08/12/20 Unknown Rx risperiDONE [RisperDAL] 0.25 mg PO BID #60 tab 08/12/20 Unknown Rx Moxifloxacin 0.5% 1 drops OP Q8H 7 Days #1 bottle 08/13/20 Unknown Rx Fluticasone [Flonase] 1 spray NS QDAY #1 bottle 08/16/20 Unknown Rx Omeprazole 40 mg PO DAILY #30 capsule. 08/16/20 Unknown Rx dexAMETHasone [Decadron] 4 mg PO HS #120 udc 08/16/20 Unknown Rx Ibuprofen [Motrin 800 MG tab] 800 mg PO Q8HR PRN #30 tablet 09/04/20 Unknown Rx diphenhydrAMINE [Benadryl CAP] 25 mg PO Q8HR PRN #15 capsule 09/04/20 Unknown Rx Erythromycin [Erythromycin Ophth 1 applic OS BID #1 tube 10/05/20 Unknown Rx Oint] HYDROcodone/APAP 5-325 [[place] 1 each PO Q4HR PRN #7 tablet 10/05/20 Unknown Rx 5/325] Albuterol Mdi (or & Nicu Only) 2 puff IH QID PRN #8.5 gram 10/16/20 Unknown Rx [ProAir HFA Inhaler] Azithromycin [Zithromax Z-MERT] 250 mg PO DAILY #6 tablet 02/03/21 Unknown Rx Benzonatate [Tessalon Perles] 100 mg PO Q8HR #30 capsule 02/03/21 Unknown Rx Fluticasone [Flonase] 1 spray NS QDAY #1 bottle 02/03/21 Unknown Rx Ibuprofen [Motrin] 600 mg PO Q8H PRN #24 tablet 02/03/21 Unknown Rx Ketotifen Fumarate [Zaditor] 1 drop OP QDAY #1 bottle 02/03/21 Unknown Rx Cetirizine HCl [Zyrtec 10mg tab] 10 mg PO DAILY #30 tablet 03/07/21 Unknown Rx Gentamicin 0.3% Ophth Soln 1 drops OP Q4H #5 ml 03/07/21 Unknown Rx Ibuprofen [Motrin 600 MG tab] 600 mg PO Q8H PRN #20 03/07/21 Unknown Rx ED Physical Exam - General Limitations: No Limitations General appearance: alert, in no apparent distress - Head Head exam: Present: atraumatic, normocephalic, normal inspection - Eye Eye exam: Present: PERRL, EOMI, other (Mild erythematous right conjunctiva with traces of conjunctival purulent discharge). Absent: conjunctival injection, periorbital swelling, periorbital tenderness Pupils: Present: normal accommodation - ENT ENT exam: Present: normal exam, normal orophraynx, mucous membranes moist, TM's normal bilaterally, normal external ear exam - Neck Neck exam: Present: normal inspection, full ROM - Respiratory Respiratory exam: Present: normal lung sounds bilaterally. Absent: respiratory distress, wheezes, rales, rhonchi, chest wall tenderness, accessory muscle use, decreased breath sounds, prolonged expiratory - Cardiovascular Cardiovascular Exam: Present: normal rhythm, tachycardia, normal heart sounds. Absent: systolic murmur, diastolic murmur, rubs, gallop - GI/Abdominal GI/Abdominal exam: Present: soft, normal bowel sounds. Absent: distended, tenderness, guarding, rebound, hyperactive bowel sounds, hypoactive bowel sounds, organomegaly - Extremities Exam Extremities exam: Present: normal inspection, full ROM, normal capillary refill - Back Exam Back exam: Present: normal inspection, full ROM. Absent: tenderness, CVA tenderness (R), CVA tenderness (L), muscle spasm, paraspinal tenderness, vertebral tenderness - Neurological Exam Neurological exam: Present: alert, oriented X3, CN II-XII intact, normal gait, reflexes normal - Psychiatric Psychiatric exam: Present: normal affect, normal mood - Skin Skin exam: Present: warm, dry, intact, normal color. Absent: rash ED Course Vital Signs 03/07/21 15:21 Temperature 98.4 F Pulse Rate 105 H Respiratory 16 Rate Blood Pressure 161/102 O2 Sat by Pulse 99 Oximetry ED Medical Decision Making - Medical Decision Making This is a 40-year-old -[place] female with a history of HIV, PTSD, bipolar disorder, anxiety and depression, chronic eczema and ADHD who presents to the ED with complaint of acute onset persistent nontraumatic severe right eye pain with matting, itching and purulent discharge for the last 2 days, worse in the last 12 hours. Patient states that she has been using [id number] medication with no relief. In the ED, patient is alert and oriented x3 and is not in any distress. Based on the history and physical exam findings, the patient will discharge home on medications and advised to follow-up with her primary care physician in 3 to 5 days for reevaluation or return to the ED immediately if symptoms get worse. - Differential Diagnosis Viral conjunctivitis; bacterial conjunctivitis; allergic conjunctivitis Critical care attestation.: If time is entered above; I have spent that time in minutes in the direct care of this critically ill patient, excluding procedure time. ED Disposition Clinical Impression: Acute conjunctivitis of right eye Qualifiers: Acute conjunctivitis type: unspecified Qualified Code(s): H10.31 - Unspecified acute conjunctivitis, right eye Disposition: - TO HOME OR SELFCARE Is pt being admited?: No Does the pt Need Aspirin: No Condition: Stable Instructions: Bacterial Conjunctivitis, Adult, [id number] Additional Instructions: Take medication with food, drink plenty of fluids and follow-up with your primary care physician in 3 to 5 days for reevaluation. Return to the ED immediately if symptoms get worse. Prescriptions: Gentamicin 0.3% Ophth Soln 1 drops OP Q4H #5 ml Ibuprofen [Motrin 600 MG tab] 600 mg PO Q8H PRN #20 PRN Reason: Pain Cetirizine HCl [Zyrtec 10mg tab] 10 mg PO DAILY #30 tablet Referrals: [facility] [Provider Group] - 3-5 Days Time of Disposition: 19:42 Print Language: YORUBA
== END 2021-03-07 20:00 | disposition home or self-care (01) ==
LOC: ED 14:02
DX: H10.31 Unspecified acute conjunctivitis, right eye (principal); Z98.890 Other specified postprocedural states; Z21 Asymptomatic human immunodeficiency virus [HIV] infection status; Z79.1 Long term (current) use of non-steroidal anti-inflammatories (NSAID); Z79.2 Long term (current) use of antibiotics; Z79.899 Other long term (current) drug therapy; Z88.2 Allergy status to sulfonamides; Z88.8 Allergy status to other drugs, medicaments and biological substances

== ENCOUNTER 2021-06-02 11:11 | Emergency (ER) | payer MEDICAID | END 2021-06-02 12:37 | disposition left against medical advice (07) | LOC: ED 11:11 | DX: H10.029 Other mucopurulent conjunctivitis, unspecified eye (principal); Z53.21 Procedure and treatment not carried out due to patient leaving prior to being seen by health care provider ==

== ENCOUNTER 2021-07-20 05:47 | Emergency (ER) | payer MEDICAID ==
[2021-07-20] MEDS ORDERED: ALPRAZolam 1 MG TAB PO ONE (06:37)
--- NOTE | 2021-07-20 06:38 | Emergency Department Report ---
ED General Adult HPI - General Chief complaint: Anxiety Stated complaint: ANXIETY PUI?: No Time Seen by Provider: 07/20/21 06:15 Source: patient, EMS ( EMS documentation not available at time of chart dictation ), RN notes reviewed, old records reviewed Mode of arrival: Ambulatory Limitations: No Limitations - History of Present Illness Initial comments: The patient was evaluated in the emergency department for symptoms described in the history of present illness. He/she was evaluated in the context of the global COVID-19 pandemic, which necessitated consideration that the patient might be at risk for infection with the virus that causes COVID-19. Institutional protocols and algorithms that pertain to the evaluation of patients at risk for COVID-19 are in a state of rapid change based on information released by regulatory bodies including the CDC and federal and state organizations. These policies and algorithms were followed during the patient's care in the emergency department. Please note that these policies, procedures and recommendations changed on a rapid basis. The patient is a 41-year-old female. Her past medical history includes anxiety, depression, PTSD, HIV positive. She states that she is not . The patient presents to the ER today with a complaint of anxiety. The patient endorses a sensation of heart racing and chest tightness. This is typical of her anxiety. The patient states that she is not coughing. She is not wheezing. However, she feels like she is wheezing, and would like an inhaler. She denies travel, surgery, leg pain, leg swelling, oral contraceptive use, , DVT and pulmonary embolism risk factors. The patient is not homicidal suicidal. She is not experiencing hallucinations. She does not want to overdose on anything. The patient endorses a secondary complaint of requesting eyedrops for dry eye. The patient is wearing contact lenses. The patient denies ocular pain. She denies loss of visual acuity. -: Gradual, hour(s) Location: eyes Consistency: constant Improves with: none Worsens with: none - Related Data Home Medications Medication Instructions Recorded Confirmed Last Taken Bictegrav/Emtricit/Tenofov Ala 1 tab PO DAILY 20/20 10/20/20 Unknown [Biktarvy 50-200-25 mg (Nf)] Dextroamphetamine/Amphetamine 20 mg PO DAILY 20/20 10/20/20 Unknown [Adderall Xr 20 mg Capsule] Ondansetron [Zofran Odt] 4 mg PO Q8HR 08/04/20 08/04/20 Unknown Valacyclovir HCl [Valacyclovir] 500 mg PO DAILY 08/04/20 08/04/20 Unknown Previous Rx's Medication Instructions Recorded Last Taken Type QUEtiapine [SEROquel] 200 mg PO QHS #14 tablet 01/04/19 Unknown Rx risperiDONE [RisperDAL] 0.5 mg PO BID #60 tablet 10/26/19 Unknown Rx Fluconazole [Diflucan TAB] 100 mg PO QDAY #7 tablet 08/04/20 Unknown Rx Magnesium Oxide [Mag-Ox] 400 mg PO QDAY #30 tablet 08/04/20 Unknown Rx Nitrofurantoin Plumas/M-Cryst 100 mg PO Q12HR #14 capsule 08/04/20 Unknown Rx [Macrobid CAP] cefUROXime [Ceftin] 250 mg PO Q12H #14 tablet 08/12/20 Unknown Rx clonazePAM [ Klonopin] 0.5 mg PO DAILY PRN #15 tab 08/12/20 Unknown Rx risperiDONE [RisperDAL] 0.25 mg PO BID #60 tab 08/12/20 Unknown Rx Moxifloxacin 0.5% 1 drops OP Q8H 7 Days #1 bottle 08/13/20 Unknown Rx Fluticasone [Flonase] 1 spray NS QDAY #1 bottle 08/16/20 Unknown Rx Omeprazole 40 mg PO DAILY #30 capsule. 08/16/20 Unknown Rx dexAMETHasone [Decadron] 4 mg PO HS #120 udc 08/16/20 Unknown Rx Ibuprofen [Motrin 800 MG tab] 800 mg PO Q8HR PRN #30 tablet 09/04/20 Unknown Rx Erythromycin [Erythromycin Ophth 1 applic OS BID #1 tube 10/05/20 Unknown Rx Oint] Albuterol Mdi (or & Nicu Only) 2 puff IH QID PRN #8.5 gram 10/16/20 Unknown Rx [ProAir HFA Inhaler] Azithromycin [Zithromax Z-MERT] 250 mg PO DAILY #6 tablet 02/03/21 Unknown Rx Benzonatate [Tessalon Perles] 100 mg PO Q8HR #30 capsule 02/03/21 Unknown Rx Fluticasone [Flonase] 1 spray NS QDAY #1 bottle 04/21/21 Unknown Rx Ibuprofen [Motrin] 600 mg PO Q8H PRN #24 tablet 02/03/21 Unknown Rx Cetirizine HCl [Zyrtec 10mg tab] 10 mg PO DAILY #30 tablet 03/07/21 Unknown Rx Gentamicin 0.3% Ophth Soln 1 drops OP Q4H #5 ml 03/07/21 Unknown Rx Ibuprofen [Motrin 600 MG tab] 600 mg PO Q8H PRN #20 03/07/21 Unknown Rx Albuterol Sulfate [Proair 90 mcg IH Q4HR PRN #2 aer.pow.ba 07/20/21 Unknown Rx Respiclick] Mineral Oil/Petrolatum,White 7 gm OP PRN PRN #1 oint...g. 07/20/21 Unknown Rx [Refresh Lacri-Lube Ointment] Allergies Allergy/AdvReac Type Severity Reaction Status Date / Time Sulfa (Sulfonamide Allergy Swelling Verified 07/20/21 05:54 Antibiotics) sulfamethoxazole Allergy Swelling Verified 07/20/21 05:54 [From Bactrim] trimethoprim [From Bactrim] Allergy Swelling Verified 07/20/21 05:54 ziprasidone [From Geodon] Allergy Unknown Verified 07/20/21 05:54 ED Review of Systems ROS: Stated complaint: ANXIETY Other details as noted in HPI Constitutional: other (Denies loss of taste and smell). denies: fever Eyes: other (Dry). denies: eye discharge, vision change ENT: denies: congestion Respiratory: other (Patient feels short of breath). denies: wheezing Cardiovascular: other (Heart racing and chest tightness) Gastrointestinal: denies: abdominal pain, nausea, vomiting, diarrhea Genitourinary: denies: dysuria Neurological: denies: headache Psychiatric: anxiety. denies: auditory hallucinations, visual hallucinations, homicidal thoughts, suicidal thoughts ED Past Medical Hx - Past Medical History Hx Hypertension: No Hx Psychiatric Treatment: Yes (PTSD, BIPOLAR, ADHD,anxiety) Hx Asthma: No Hx HIV: Yes (Last CD4 800's 07/19/2019) Additional medical history: ezcema - Surgical History Hx Coronary Stent: No Additional Surgical History: D&C. breast implants. wisdom teeth removed. tubal ligation - Social History Smoking Status: Never Smoker Substance Use Type: None - Medications Home Medications: Home Medications Medication Instructions Recorded Confirmed Last Taken Type QUEtiapine [SEROquel] 200 mg PO QHS #14 tablet 01/04/19 08/04/20 Unknown Rx risperiDONE [RisperDAL] 0.5 mg PO BID #60 tablet 10/26/19 08/04/20 Unknown Rx Bictegrav/Emtricit/Tenofov Ala 1 tab PO DAILY 08/04/20 08/04/20 Unknown History [Biktarvy 50-200-25 mg (Nf)] Dextroamphetamine/Amphetamine 20 mg PO DAILY 08/04/20 08/04/20 Unknown History [Adderall Xr 20 mg Capsule] Fluconazole [Diflucan TAB] 100 mg PO QDAY #7 tablet 08/04/20 Unknown Rx Magnesium Oxide [Mag-Ox] 400 mg PO QDAY #30 tablet 08/04/20 Unknown Rx Nitrofurantoin [place]umas/M-Cryst 100 mg PO Q12HR #14 capsule 08/04/20 Unknown Rx [Macrobid CAP] Ondansetron [Zofran Odt] 4 mg PO Q8HR 08/04/20 08/04/20 Unknown History Valacyclovir HCl [Valacyclovir] 500 mg PO DAILY 08/04/20 08/04/20 Unknown History cefUROXime [Ceftin] 250 mg PO Q12H #14 tablet 08/12/20 Unknown Rx clonazePAM [ Klonopin] 0.5 mg PO DAILY PRN #15 tab 08/12/20 Unknown Rx risperiDONE [RisperDAL] 0.25 mg PO BID #60 tab 08/12/20 Unknown Rx Moxifloxacin 0.5% 1 drops OP Q8H 7 Days #1 bottle 08/13/20 Unknown Rx Fluticasone [Flonase] 1 spray NS QDAY #1 bottle 08/16/20 Unknown Rx Omeprazole 40 mg PO DAILY #30 capsule. 08/16/20 Unknown Rx dexAMETHasone [Decadron] 4 mg PO HS #120 udc 08/16/20 Unknown Rx Ibuprofen [Motrin 800 MG tab] 800 mg PO Q8HR PRN #30 tablet 09/04/20 Unknown Rx Erythromycin [Erythromycin Ophth 1 applic OS BID #1 tube 10/05/20 Unknown Rx Oint] Albuterol Mdi (or & Nicu Only) 2 puff IH QID PRN #8.5 gram 10/16/20 Unknown Rx [ProAir HFA Inhaler] Azithromycin [Zithromax Z-MERT] 250 mg PO DAILY #6 tablet 02/03/21 Unknown Rx Benzonatate [Tessalon Perles] 100 mg PO Q8HR #30 capsule 02/03/21 Unknown Rx Fluticasone [Flonase] 1 spray NS QDAY #1 bottle 02/03/21 Unknown Rx Ibuprofen [Motrin] 600 mg PO Q8H PRN #24 tablet 02/03/21 Unknown Rx Cetirizine HCl [Zyrtec 10mg tab] 10 mg PO DAILY #30 tablet 03/07/21 Unknown Rx Gentamicin 0.3% Ophth Soln 1 drops OP Q4H #5 ml 03/07/21 Unknown Rx Ibuprofen [Motrin 600 MG tab] 600 mg PO Q8H PRN #20 03/07/21 Unknown Rx Albuterol Sulfate [Proair 90 mcg IH Q4HR PRN #2 aer.pow.ba 07/20/21 Unknown Rx Respiclick] Mineral Oil/Petrolatum,White 7 gm OP PRN PRN #1 oint...g. 07/20/21 Unknown Rx [Refresh Lacri-Lube Ointment] ED Physical Exam - General Limitations: No Limitations General appearance: alert, in no apparent distress - Head Head exam: Present: atraumatic, normocephalic - Eye Eye exam: Present: normal appearance, EOMI, other (Visual acuity intact to finger counting, color perception, reading at a close distance). Absent: scleral icterus, conjunctival injection, nystagmus, periorbital swelling, periorbital tenderness - ENT ENT exam: Present: normal exam, normal orophraynx, mucous membranes moist, normal external ear exam - Neck Neck exam: Present: normal inspection, full ROM. Absent: tenderness, meningismus - Respiratory Respiratory exam: Present: normal lung sounds bilaterally. Absent: respiratory distress, wheezes, rales, rhonchi, stridor, decreased breath sounds - Cardiovascular Cardiovascular Exam: Present: normal rhythm, tachycardia, normal heart sounds. Absent: systolic murmur, diastolic murmur, rubs, gallop - GI/Abdominal GI/Abdominal exam: Present: soft. Absent: distended, tenderness, guarding, rebound, rigid, pulsatile mass - Extremities Exam Extremities exam: Present: normal inspection, full ROM, other (2+ pulses noted in the bilateral upper and lower extremities. There is no palpable cord. negative Homans sign. Muscular compartments are soft. The pelvis is stable.). Absent: pedal edema, calf tenderness - Back Exam Back exam: Present: normal inspection, full ROM. Absent: tenderness, CVA tenderness (R), CVA tenderness (L), paraspinal tenderness, vertebral tenderness - Neurological Exam Neurological exam: Present: alert, oriented X3, normal gait, other (No facial droop. Tongue midline. Extraocular movements intact bilaterally. Facial sensation intact to light touch in V1, V2, V3 distribution bilaterally. 5 and a 5 strength in 4 extremities. Sensation intact to light touch in 4 extremities.). Absent: motor sensory deficit - Psychiatric Psychiatric exam: Present: anxious. Absent: homicidal ideation, suicidal ideation - Skin Skin exam: Present: warm, dry, intact, normal color. Absent: rash ED Course Vital Signs 07/20/21 07/20/21 05:52 08:06 Temperature 98.6 F 98.3 F Pulse Rate 119 H 100 H Respiratory 19 18 Rate Blood Pressure 153/97 155/95 [Left] O2 Sat by Pulse 99 99 Oximetry - Reevaluation(s) Reevaluation #1: 07/20/21 08:12 Tachycardia improved. No acute distress. Suitable for discharge ED Medical Decision Making - Lab Data Vital Signs 07/20/21 05:52 Temperature 98.6 F Pulse Rate 119 H Respiratory 19 Rate Blood Pressure 153/97 [Left] O2 Sat by Pulse 99 Oximetry - EKG Data -: EKG Interpreted by Me EKG shows normal: sinus rhythm Rate: tachycardia - EKG Data 07/20/21 07:01 The EKG is interpreted at 06: 43 AM Sinus rhythm, tachycardia, rate 107 bpm. Normal axis, normal P wave axis, QTC 4 5 4 ms. Minimal motion artifact. Abnormal EKG. Not a STEMI. - Radiology Data Radiology results: pending, image reviewed interpreted by me: 2 view x-ray of the chest, interpreted by myself: No infiltrate, no pneumothorax, unremarkable cardiomediastinal silhouette. Osseous anatomy unremarkable. - Medical Decision Making Differential diagnosis, include but not limited to: Anxiety, encounter for medical screening exam, encounter for behavioral health screening examination, dry eye, contact lens use Assessment and plan: 41-year-old female, who is clinically sober, with a GCS of 15, not homicidal, not suicidal, does not meet criteria for 1013 hold or involuntary hold, who denies DVT and pulmonary embolism risk factors, who is low risk by Wells criteria for pulmonary embolism, with clear lungs, multiple negative D-dimers in the past, normal O2 sat, normal chest x-ray, unremarkable EKG, with improving tachycardia, with a primary complaint of anxiety. She will be provided a one-time dose of Xanax here in the emergency room, once tachycardia resolves, discharged outpatient follow-up. Her ocular exam is unremarkable, she is found to have contact lenses in place, visual acuity intact to finger counting, color perception, reading at a close distance, has no redness, pus, streaking, or pain with EOM. Counseled to remove contact lenses, wear glasses, artificial tears as needed, have also refilled albuterol as per her request, although do not appreciate any wheezing or focal pulmonary findings. Critical care attestation.: If time is entered above; I have spent that time in minutes in the direct care of this critically ill patient, excluding procedure time. ED Disposition Clinical Impression: Encounter for medical screening examination, Encounter for behavioral health screening, Uses contact lenses, Medication refill Disposition: 01 HOME / SELF CARE / HOMELESS Is pt being admited?: No Does the pt Need Aspirin: No Condition: Good Additional Instructions: Recommend that the patient follow-up with an outpatient primary care doctor to establish outpatient medical care. Recommend that patient remove contact lenses, use artificial tears as often as needed, and wear glasses Recommend the patient follow-up with an outpatient primary care doctor within the next 2 weeks. Recommend the patient follow-up with an outpatient mental health specialist within the next 2 weeks. Use the albuterol as needed for cough and wheezing. Please return to the emergency room right away with new pain, worsened pain, migration of pain, projectile vomiting, change in mental status, confusion, homicidality, suicidality, change in mental status, or any new, worsened or different symptoms not present on the initial emergency room evaluation. Prescriptions: Albuterol Sulfate [Proair Respiclick] 90 mcg IH Q4HR PRN #2 aer.pow.ba PRN Reason: Wheezing Mineral Oil/Petrolatum,White [Refresh Lacri-Lube Ointment] 7 gm OP PRN PRN #1 oint...g. PRN Reason: Dry Eye(S) Referrals: [facility] [Provider Group] - as needed [facility] [Outside] - as needed [facility] [Outside] - as needed
--- NOTE | 2021-07-20 07:08 | XRay Report ---
CHEST 2 VIEWS INDICATION / CLINICAL INFORMATION: cough heart racing. FINDINGS: SUPPORT DEVICES: None. HEART / MEDIASTINUM: No significant abnormality. LUNGS / PLEURA: No significant pulmonary or pleural abnormality. No pneumothorax. ADDITIONAL FINDINGS: No significant additional findings. IMPRESSION: 1. No acute findings. Signer Name: Jameson Bear MD Signed: 07/20/2021 7:03 AM Workstation Name: [id number]
[2021-07-20 08:07] VITALS: BP 155/95
--- NOTE | 2021-07-21 11:46 | Electrocardiograph Report ---
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
== END 2021-07-20 08:42 | disposition home or self-care (01) ==
LOC: ED 05:47
DX: F41.9 Anxiety disorder, unspecified (principal); R07.9 Chest pain, unspecified; Z00.00 Encounter for general adult medical examination without abnormal findings; Z13.30 Encounter for screening examination for mental health and behavioral disorders, unspecified; Z76.0 Encounter for issue of repeat prescription; Z88.1 Allergy status to other antibiotic agents; Z88.2 Allergy status to sulfonamides; Z88.8 Allergy status to other drugs, medicaments and biological substances
CPT/HCPCS: 71046; 93005; 99283

== ENCOUNTER 2021-07-22 22:07 | Emergency (ER) | payer MEDICAID ==
[2021-07-22 22:57] VITALS: BP 149/92
--- NOTE | 2021-07-22 23:15 | Emergency Department Report ---
ED General Adult HPI - General Chief complaint: Eye Problems Stated complaint: EYES ITCHING/THROAT PAIN/CHEST Source: patient Mode of arrival: Ambulatory Limitations: No Limitations - History of Present Illness Initial comments: Patient is a 41-year-old -Turkish female with a history of PTSD, HIV, anxiety and depression, bipolar disorder and ADHD who presents to the ED with complaint of acute onset persistent bilateral itchy eyes and itchy throat with chest tightness for the last 3 days. Patient also complains of mild dry cough. Patient denies fever, chills, shortness of breath, chest pain, nausea and vomiting, abdominal pain, traumatic injury, nasal and sinus congestion, back pain or headache and diarrhea. MD Complaint: Bilateral itchy eyes, itchy throat -: Sudden Location: face, mouth, eyes Radiation: non-radiation Severity scale (0 -10): 0 Consistency: intermittent Improves with: none Worsens with: none Associated Symptoms: denies other symptoms, cough. denies: confusion, chest pain, diaphoresis, fever/chills, headaches, loss of appetite, malaise, nausea/vomiting, seizure, shortness of breath, syncope, weakness Treatments Prior to Arrival: none - Related Data Home Medications Medication Instructions Recorded Confirmed Last Taken Bictegrav/Emtricit/Tenofov Ala 1 tab PO DAILY 08/04/20 08/04/20 Unknown [Biktarvy 50-200-25 mg (Nf)] Dextroamphetamine/Amphetamine 20 mg PO DAILY 08/04/20 08/04/20 Unknown [Adderall Xr 20 mg Capsule] Ondansetron [Zofran Odt] 4 mg PO Q8HR 08/04/20 08/04/20 Unknown Valacyclovir HCl [Valacyclovir] 500 mg PO DAILY 08/04/20 08/04/20 Unknown Previous Rx's Medication Instructions Recorded Last Taken Type QUEtiapine [SEROquel] 200 mg PO QHS #14 tablet 01/04/19 Unknown Rx risperiDONE [RisperDAL] 0.5 mg PO BID #60 tablet 10/26/19 Unknown Rx Fluconazole [Diflucan TAB] 100 mg PO QDAY #7 tablet 08/04/20 Unknown Rx Magnesium Oxide [Mag-Ox] 400 mg PO QDAY #30 tablet 08/04/20 Unknown Rx Nitrofurantoin [place]/M-Cryst 100 mg PO Q12HR #14 capsule 08/04/20 Unknown Rx [Macrobid CAP] cefUROXime [Ceftin] 250 mg PO Q12H #14 tablet 08/12/20 Unknown Rx clonazePAM [ Klonopin] 0.5 mg PO DAILY PRN #15 tab 08/12/20 Unknown Rx risperiDONE [RisperDAL] 0.25 mg PO BID #60 tab 08/12/20 Unknown Rx Moxifloxacin 0.5% 1 drops OP Q8H 7 Days #1 bottle 08/13/20 Unknown Rx Fluticasone [Flonase] 1 spray NS QDAY #1 bottle 08/16/20 Unknown Rx Omeprazole 40 mg PO DAILY #30 capsule. 08/16/20 Unknown Rx dexAMETHasone [Decadron] 4 mg PO HS #120 udc 08/16/20 Unknown Rx Ibuprofen [Motrin 800 MG tab] 800 mg PO Q8HR PRN #30 tablet 09/04/20 Unknown Rx Erythromycin [Erythromycin Ophth 1 applic OS BID #1 tube 10/05/20 Unknown Rx Oint] Azithromycin [Zithromax Z-MERT] 250 mg PO DAILY #6 tablet 02/03/21 Unknown Rx Benzonatate [Tessalon Perles] 100 mg PO Q8HR #30 capsule 02/03/21 Unknown Rx Fluticasone [Flonase] 1 spray NS QDAY #1 bottle 02/03/21 Unknown Rx Ibuprofen [Motrin] 600 mg PO Q8H PRN #24 tablet 02/03/21 Unknown Rx Gentamicin 0.3% Ophth Soln 1 drops OP Q4H #5 ml 03/07/21 Unknown Rx Ibuprofen [Motrin 600 MG tab] 600 mg PO Q8H PRN #20 03/07/21 Unknown Rx Albuterol Sulfate [Proair 90 mcg IH Q4HR PRN #2 aer.pow.ba 07/20/21 Unknown Rx Respiclick] Mineral Oil/Petrolatum,White 7 gm OP PRN PRN #1 oint...g. 07/20/21 Unknown Rx [Refresh Lacri-Lube Ointment] Albuterol Mdi (or & Nicu Only) 2 puff IH QID PRN #8.5 gram 07/22/21 Unknown Rx [ProAir HFA Inhaler] Cetirizine HCl [Zyrtec 10mg tab] 10 mg PO DAILY #30 tablet 10/07/21 Unknown Rx Fluconazole [Diflucan TAB] 200 mg PO QDAY #1 tablet 07/22/21 Unknown Rx Olopatadine HCl [Patanol 0.1%] 1 drop OP BID #5 ml 07/22/21 Unknown Rx Allergies Allergy/AdvReac Type Severity Reaction Status Date / Time Sulfa (Sulfonamide Allergy Swelling Verified 07/20/21 05:54 Antibiotics) sulfamethoxazole Allergy Swelling Verified 07/20/21 05:54 [From Bactrim] trimethoprim [From Bactrim] Allergy Swelling Verified 07/20/21 05:54 ziprasidone [From Geodon] Allergy Unknown Verified 07/20/21 05:54 ED Review of Systems ROS: Stated complaint: EYES ITCHING/THROAT PAIN/CHEST Other details as noted in HPI Constitutional: denies: chills, fever Eyes: other (Bilateral itchy eyes). denies: eye pain, eye discharge, vision change ENT: throat pain (Itchy throat). denies: ear pain Respiratory: denies: cough, shortness of breath, wheezing Cardiovascular: chest pain (Chest tightness). denies: palpitations Endocrine: no symptoms reported Gastrointestinal: denies: abdominal pain, nausea, diarrhea Genitourinary: denies: urgency, dysuria, discharge Musculoskeletal: denies: back pain, joint swelling, arthralgia Skin: denies: rash, lesions Neurological: denies: headache, weakness, paresthesias Psychiatric: denies: anxiety, depression Hematological/Lymphatic: denies: easy bleeding, easy bruising ED Past Medical Hx - Past Medical History Hx Hypertension: No Hx Psychiatric Treatment: Yes (PTSD, BIPOLAR, ADHD,anxiety) Hx Asthma: No Hx HIV: Yes (Last CD4 800's 07/19/2019) Additional medical history: ezcema/ STATES "WHATEVER THEY DX ME WITH". - Surgical History Hx Coronary Stent: No Additional Surgical History: D&C. breast implants. wisdom teeth removed. tubal ligation - Social History Smoking Status: Never Smoker - Medications Home Medications: Home Medications Medication Instructions Recorded Confirmed Last Taken Type QUEtiapine [SEROquel] 200 mg PO QHS #14 tablet 01/04/19 08/04/20 Unknown Rx risperiDONE [RisperDAL] 0.5 mg PO BID #60 tablet 10/26/19 08/04/20 Unknown Rx Bictegrav/Emtricit/Tenofov Ala 1 tab PO DAILY 08/04/20 08/04/20 Unknown History [Biktarvy 50-200-25 mg (Nf)] Dextroamphetamine/Amphetamine 20 mg PO DAILY 08/04/20 08/04/20 Unknown History [Adderall Xr 20 mg Capsule] Fluconazole [Diflucan TAB] 100 mg PO QDAY #7 tablet 08/04/20 Unknown Rx Magnesium Oxide [Mag-Ox] 400 mg PO QDAY #30 tablet 08/04/20 Unknown Rx Nitrofurantoin [place]/M-Cryst 100 mg PO Q12HR #14 capsule 08/04/20 Unknown Rx [Macrobid CAP] Ondansetron [Zofran Odt] 4 mg PO Q8HR 08/04/20 08/04/20 Unknown History Valacyclovir HCl [Valacyclovir] 500 mg PO DAILY 08/04/20 08/04/20 Unknown History cefUROXime [Ceftin] 250 mg PO Q12H #14 tablet 08/12/20 Unknown Rx clonazePAM [ Klonopin] 0.5 mg PO DAILY PRN #15 tab 08/12/20 Unknown Rx risperiDONE [RisperDAL] 0.25 mg PO BID #60 tab 08/12/20 Unknown Rx Moxifloxacin 0.5% 1 drops OP Q8H 7 Days #1 bottle 08/13/20 Unknown Rx Fluticasone [Flonase] 1 spray NS QDAY #1 bottle 08/16/20 Unknown Rx Omeprazole 40 mg PO DAILY #30 capsule. 08/16/20 Unknown Rx dexAMETHasone [Decadron] 4 mg PO HS #120 udc 08/16/20 Unknown Rx Ibuprofen [Motrin 800 MG tab] 800 mg PO Q8HR PRN #30 tablet 09/04/20 Unknown Rx Erythromycin [Erythromycin Ophth 1 applic OS BID #1 tube 10/05/20 Unknown Rx Oint] Azithromycin [Zithromax Z-MERT] 250 mg PO DAILY #6 tablet 02/03/21 Unknown Rx Benzonatate [Tessalon Perles] 100 mg PO Q8HR #30 capsule 02/03/21 Unknown Rx Fluticasone [Flonase] 1 spray NS QDAY #1 bottle 02/03/21 Unknown Rx Ibuprofen [Motrin] 600 mg PO Q8H PRN #24 tablet 02/03/21 Unknown Rx Gentamicin 0.3% Ophth Soln 1 drops OP Q4H #5 ml 03/07/21 Unknown Rx Ibuprofen [Motrin 600 MG tab] 600 mg PO Q8H PRN #20 03/07/21 Unknown Rx Albuterol Sulfate [Proair 90 mcg IH Q4HR PRN #2 aer.pow.ba 07/20/21 Unknown Rx Respiclick] Mineral Oil/Petrolatum,White 7 gm OP PRN PRN #1 oint...g. 07/20/21 Unknown Rx [Refresh Lacri-Lube Ointment] Albuterol Mdi (or & Nicu Only) 2 puff IH QID PRN #8.5 gram 07/22/21 Unknown Rx [ProAir HFA Inhaler] Cetirizine HCl [Zyrtec 10mg tab] 10 mg PO DAILY #30 tablet 07/22/21 Unknown Rx Fluconazole [Diflucan TAB] 200 mg PO QDAY #1 tablet 07/22/21 Unknown Rx Olopatadine HCl [Patanol 0.1%] 1 drop OP BID #5 ml 07/22/21 Unknown Rx ED Physical Exam - General Limitations: No Limitations General appearance: alert, in no apparent distress - Head Head exam: Present: atraumatic, normocephalic, normal inspection - Eye Eye exam: Present: normal appearance, PERRL, EOMI Pupils: Present: normal accommodation - ENT ENT exam: Present: normal orophraynx, mucous membranes moist, TM's normal bilaterally, normal external ear exam - Neck Neck exam: Present: normal inspection, full ROM - Respiratory Respiratory exam: Present: normal lung sounds bilaterally, chest wall tenderness. Absent: respiratory distress, wheezes, rales, rhonchi, accessory muscle use, prolonged expiratory - Cardiovascular Cardiovascular Exam: Present: regular rate, normal rhythm, normal heart sounds. Absent: systolic murmur, diastolic murmur, rubs, gallop - GI/Abdominal GI/Abdominal exam: Present: soft, normal bowel sounds. Absent: tenderness, guarding, hyperactive bowel sounds, hypoactive bowel sounds - Extremities Exam Extremities exam: Present: normal inspection, full ROM, normal capillary refill - Back Exam Back exam: Present: normal inspection, full ROM. Absent: tenderness, CVA tenderness (R), CVA tenderness (L), muscle spasm, paraspinal tenderness, vertebral tenderness - Neurological Exam Neurological exam: Present: alert, oriented X3, CN II-XII intact, normal gait, reflexes normal - Psychiatric Psychiatric exam: Present: normal affect, normal mood, anxious - Skin Skin exam: Present: warm, dry, intact, normal color. Absent: rash ED Course Vital Signs 07/22/21 22:48 Temperature 98.0 F Respiratory 16 Rate Blood Pressure 149/92 ED Medical Decision Making - Medical Decision Making This is a 41-year-old -Turkish female with a history of PTSD, HIV, anxiety and depression, bipolar disorder and ADHD who presents to the ED with complaint of acute onset persistent bilateral itchy eyes and itchy throat with chest tightness for the last 3 days. Patient also complains of mild dry cough. In the ED, patient is alert and oriented x3 and is not in any distress but anxious during the physical exam. Patient the history and physical exam findings, patient symptoms are likely due to allergic rhinitis or conjunctivitis. Patient was discharged home on medication advised to follow-up with her primary care physician in 3 to 5 days for reevaluation. Patient was advised return to the ED immediately if symptoms get worse. - Differential Diagnosis Allergic reaction; allergic conjunctivitis; URI; allergic pharyngitis Critical care attestation.: If time is entered above; I have spent that time in minutes in the direct care of this critically ill patient, excluding procedure time. ED Disposition Clinical Impression: Allergic pharyngitis Allergic conjunctivitis and rhinitis Qualifiers: Laterality: bilateral Qualified Code(s): H10.13 - Acute atopic conjunctivitis, bilateral; J30.9 - Allergic rhinitis, unspecified Disposition: 01 HOME / SELF CARE / HOMELESS Is pt being admited?: No Does the pt Need Aspirin: No Condition: Stable Instructions: Allergic Conjunctivitis, Adult, [id number], Sore Throat, [id number] Additional Instructions: Take medication with food, drink plenty of fluids and follow-up with your primary care physician in 5 to 7 days for reevaluation. Return to the ED immediately if symptoms get worse. Prescriptions: Fluconazole [Diflucan TAB] 200 mg PO QDAY #1 tablet Olopatadine HCl [Patanol 0.1%] 1 drop OP BID #5 ml Albuterol Mdi (or & Nicu Only) [ProAir HFA Inhaler] 2 puff IH QID PRN #8.5 gram PRN Reason: Shortness Of Breath Cetirizine HCl [Zyrtec 10mg tab] 10 mg PO DAILY #30 tablet Referrals: [facility] [Provider Group] - 3-5 Days Time of Disposition: 23:17 Print Language: MACEDONIAN
== END 2021-07-23 | disposition home or self-care (01) ==
LOC: ED 22:07
DX: J02.9 Acute pharyngitis, unspecified (principal); H10.13 Acute atopic conjunctivitis, bilateral; J30.9 Allergic rhinitis, unspecified; Z88.1 Allergy status to other antibiotic agents; Z88.5 Allergy status to narcotic agent; Z88.2 Allergy status to sulfonamides
CPT/HCPCS: 99282

== ENCOUNTER 2021-07-23 02:57 | Emergency (ER) | payer MEDICAID ==
[2021-07-23 03:07] VITALS: BP 144/94
--- NOTE | 2021-07-23 03:23 | Emergency Department Report ---
ED Lower Extremity HPI - General Chief Complaint: Extremity Problem,Nontraumatic Stated Complaint: FOOT DONT FEEL RIGHT - RETURN PT Time Seen by Provider: 07/23/21 03:19 Source: patient, EMS Mode of arrival: Ambulatory Limitations: No Limitations - History of Present Illness Initial Comments: Patient is a 41-year-old female that presents emergency room for right foot pain. Patient states it started 3 days ago. Patient states is worsening. Patient states that she hit her toe on the bed yesterday. Patient states the pain is unchanged with walking. Patient states the pain is unchanged with rest. Patient states nothing makes the pain worse or better. Patient denies recent travel. Patient denies recent international travel. Patient denies exposure to the novel coronavirus. Patient denies sick contacts. Patient denies fever and chills. Patient denies cough. Patient denies diarrhea. Patient denies coming in contact with anybody with symptoms of the novel coronavirus. Complaint: foot injury -: Sudden, days(s) Injury: Foot: Right Place: home Severity scale (0 -10): 6 Improves With: nothing Worsens With: nothing Associated Symptoms: ambulatory - Related Data Home Medications Medication Instructions Recorded Confirmed Last Taken Bictegrav/Emtricit/Tenofov Ala 1 tab PO DAILY 08/04/20 08/04/20 Unknown [Biktarvy 50-200-25 mg (Nf)] Dextroamphetamine/Amphetamine 20 mg PO DAILY 08/04/20 08/04/20 Unknown [Adderall Xr 20 mg Capsule] Ondansetron [Zofran Odt] 4 mg PO Q8HR 08/04/20 08/04/20 Unknown Valacyclovir HCl [Valacyclovir] 500 mg PO DAILY 08/04/20 08/04/20 Unknown Previous Rx's Medication Instructions Recorded Last Taken Type QUEtiapine [SEROquel] 200 mg PO QHS #14 tablet 01/04/19 Unknown Rx risperiDONE [RisperDAL] 0.5 mg PO BID #60 tablet 10/26/19 Unknown Rx Fluconazole [Diflucan TAB] 100 mg PO QDAY #7 tablet 08/04/20 Unknown Rx Magnesium Oxide [Mag-Ox] 400 mg PO QDAY #30 tablet 08/04/20 Unknown Rx Nitrofurantoin [place]/M-Cryst 100 mg PO Q12HR #14 capsule 08/04/20 Unknown Rx [Macrobid CAP] cefUROXime [Ceftin] 250 mg PO Q12H #14 tablet 08/12/20 Unknown Rx clonazePAM [ Klonopin] 0.5 mg PO DAILY PRN #15 tab 08/12/20 Unknown Rx risperiDONE [RisperDAL] 0.25 mg PO BID #60 tab 08/12/20 Unknown Rx Moxifloxacin 0.5% 1 drops OP Q8H 7 Days #1 bottle 08/13/20 Unknown Rx Fluticasone [Flonase] 1 spray NS QDAY #1 bottle 08/16/20 Unknown Rx Omeprazole 40 mg PO DAILY #30 capsule. 08/16/20 Unknown Rx dexAMETHasone [Decadron] 4 mg PO HS #120 udc 08/16/20 Unknown Rx Ibuprofen [Motrin 800 MG tab] 800 mg PO Q8HR PRN #30 tablet 09/04/20 Unknown Rx Erythromycin [Erythromycin Ophth 1 applic OS BID #1 tube 10/05/20 Unknown Rx Oint] Azithromycin [Zithromax Z-MERT] 250 mg PO DAILY #6 tablet 02/03/21 Unknown Rx Benzonatate [Tessalon Perles] 100 mg PO Q8HR #30 capsule 02/03/21 Unknown Rx Fluticasone [Flonase] 1 spray NS QDAY #1 bottle 02/03/21 Unknown Rx Ibuprofen [Motrin] 600 mg PO Q8H PRN #24 tablet 02/03/21 Unknown Rx Gentamicin 0.3% Ophth Soln 1 drops OP Q4H #5 ml 03/07/21 Unknown Rx Ibuprofen [Motrin 600 MG tab] 600 mg PO Q8H PRN #20 03/07/21 Unknown Rx Albuterol Sulfate [Proair 90 mcg IH Q4HR PRN #2 aer.pow.ba 07/20/21 Unknown Rx Respiclick] Mineral Oil/Petrolatum,White 7 gm OP PRN PRN #1 oint...g. 07/20/21 Unknown Rx [Refresh Lacri-Lube Ointment] Albuterol Mdi (or & Nicu Only) 2 puff IH QID PRN #8.5 gram 07/22/21 Unknown Rx [ProAir HFA Inhaler] Cetirizine HCl [Zyrtec 10mg tab] 10 mg PO DAILY #30 tablet 07/22/21 Unknown Rx Fluconazole [Diflucan TAB] 200 mg PO QDAY #1 tablet 07/22/21 Unknown Rx Olopatadine HCl [Patanol 0.1%] 1 drop OP BID #5 ml 07/22/21 Unknown Rx Allergies Allergy/AdvReac Type Severity Reaction Status Date / Time Sulfa (Sulfonamide Allergy Swelling Verified 07/20/21 05:54 Antibiotics) sulfamethoxazole Allergy Swelling Verified 07/20/21 05:54 [From Bactrim] trimethoprim [From Bactrim] Allergy Swelling Verified 07/20/21 05:54 ziprasidone [From Geodon] Allergy Unknown Verified 07/20/21 05:54 ED Review of Systems ROS: Stated complaint: FOOT DONT FEEL RIGHT - RETURN PT Other details as noted in HPI Constitutional: denies: chills, fever Eyes: denies: eye pain, eye discharge, vision change ENT: denies: ear pain, throat pain Respiratory: denies: cough, shortness of breath, wheezing Cardiovascular: denies: chest pain, palpitations Endocrine: no symptoms reported Gastrointestinal: denies: abdominal pain, nausea, diarrhea Genitourinary: denies: urgency, dysuria, discharge Musculoskeletal: denies: back pain, joint swelling, arthralgia Skin: denies: rash, lesions Neurological: denies: headache, weakness, paresthesias Psychiatric: denies: anxiety, depression Hematological/Lymphatic: denies: easy bleeding, easy bruising ED Past Medical Hx - Past Medical History Previous Medical History?: Yes Hx Hypertension: No Hx Psychiatric Treatment: Yes (PTSD, BIPOLAR, ADHD,anxiety) Hx Asthma: No Hx HIV: Yes (Last CD4 800's 07/19/2019) Additional medical history: ezcema/ STATES "WHATEVER THEY DX ME WITH". - Surgical History Past Surgical History?: Yes Hx Coronary Stent: No Additional Surgical History: D&C. breast implants. wisdom teeth removed. tubal ligation - Family History Family history: no significant - Social History Smoking Status: Never Smoker Substance Use Type: None - Medications Home Medications: Home Medications Medication Instructions Recorded Confirmed Last Taken Type QUEtiapine [SEROquel] 200 mg PO QHS #14 tablet 01/04/19 08/04/20 Unknown Rx risperiDONE [RisperDAL] 0.5 mg PO BID #60 tablet 10/26/19 08/04/20 Unknown Rx Bictegrav/Emtricit/Tenofov Ala 1 tab PO DAILY 08/04/20 08/04/20 Unknown History [Biktarvy 50-200-25 mg (Nf)] Dextroamphetamine/Amphetamine 20 mg PO DAILY 08/04/20 08/04/20 Unknown History [Adderall Xr 20 mg Capsule] Fluconazole [Diflucan TAB] 100 mg PO QDAY #7 tablet 08/04/20 Unknown Rx Magnesium Oxide [Mag-Ox] 400 mg PO QDAY #30 tablet 08/04/20 Unknown Rx Nitrofurantoin [place]/M-Cryst 100 mg PO Q12HR #14 capsule 08/04/20 Unknown Rx [Macrobid CAP] Ondansetron [Zofran Odt] 4 mg PO Q8HR 08/04/20 08/04/20 Unknown History Valacyclovir HCl [Valacyclovir] 500 mg PO DAILY 08/04/20 08/04/20 Unknown History cefUROXime [Ceftin] 250 mg PO Q12H #14 tablet 08/12/20 Unknown Rx clonazePAM [ Klonopin] 0.5 mg PO DAILY PRN #15 tab 08/12/20 Unknown Rx risperiDONE [RisperDAL] 0.25 mg PO BID #60 tab 08/12/20 Unknown Rx Moxifloxacin 0.5% 1 drops OP Q8H 7 Days #1 bottle 08/13/20 Unknown Rx Fluticasone [Flonase] 1 spray NS QDAY #1 bottle 08/16/20 Unknown Rx Omeprazole 40 mg PO DAILY #30 capsule. 08/16/20 Unknown Rx dexAMETHasone [Decadron] 4 mg PO HS #120 udc 08/16/20 Unknown Rx Ibuprofen [Motrin 800 MG tab] 800 mg PO Q8HR PRN #30 tablet 09/04/20 Unknown Rx Erythromycin [Erythromycin Ophth 1 applic OS BID #1 tube 10/05/20 Unknown Rx Oint] Azithromycin [Zithromax Z-MERT] 250 mg PO DAILY #6 tablet 02/03/21 Unknown Rx Benzonatate [Tessalon Perles] 100 mg PO Q8HR #30 capsule 02/03/21 Unknown Rx Fluticasone [Flonase] 1 spray NS QDAY #1 bottle 02/03/21 Unknown Rx Ibuprofen [Motrin] 600 mg PO Q8H PRN #24 tablet 02/03/21 Unknown Rx Gentamicin 0.3% Ophth Soln 1 drops OP Q4H #5 ml 03/07/21 Unknown Rx Ibuprofen [Motrin 600 MG tab] 600 mg PO Q8H PRN #20 03/07/21 Unknown Rx Albuterol Sulfate [Proair 90 mcg IH Q4HR PRN #2 aer.pow.ba 07/20/21 Unknown Rx Respiclick] Mineral Oil/Petrolatum,White 7 gm OP PRN PRN #1 oint...g. 07/20/21 Unknown Rx [Refresh Lacri-Lube Ointment] Albuterol Mdi (or & Nicu Only) 2 puff IH QID PRN #8.5 gram 07/22/21 Unknown Rx [ProAir HFA Inhaler] Cetirizine HCl [Zyrtec 10mg tab] 10 mg PO DAILY #30 tablet 07/22/21 Unknown Rx Fluconazole [Diflucan TAB] 200 mg PO QDAY #1 tablet 07/22/21 Unknown Rx Olopatadine HCl [Patanol 0.1%] 1 drop OP BID #5 ml 07/22/21 Unknown Rx ED Physical Exam - General Limitations: No Limitations General appearance: alert, in no apparent distress - Head Head exam: Present: atraumatic, normocephalic - Eye Eye exam: Present: normal appearance - ENT ENT exam: Present: mucous membranes moist - Neck Neck exam: Present: normal inspection - Respiratory Respiratory exam: Present: normal lung sounds bilaterally. Absent: respiratory distress - Cardiovascular Cardiovascular Exam: Present: regular rate, normal rhythm. Absent: systolic murmur, diastolic murmur, rubs, gallop - GI/Abdominal GI/Abdominal exam: Present: soft, normal bowel sounds - Extremities Exam Extremities exam: Present: normal inspection, full ROM, normal capillary refill. Absent: tenderness, pedal edema, joint swelling, calf tenderness - Back Exam Back exam: Present: normal inspection - Neurological Exam Neurological exam: Present: alert, oriented X3, normal gait - Psychiatric Psychiatric exam: Present: normal affect, normal mood - Skin Skin exam: Present: warm, dry, intact, normal color. Absent: rash ED Course Vital Signs 07/23/21 03:03 Temperature 98.3 F Pulse Rate 96 H Respiratory 18 Rate Blood Pressure 144/94 [Left] O2 Sat by Pulse 98 Oximetry - Reevaluation(s) Reevaluation #1: I discussed all results and clinical findings with patient. I discussed plan of care with patient. Patient agrees with plan of care. Patient is stable for discharge. Patient will be discharged home. Patient given discharge instructions. Patient voiced understanding of discharge instructions. 07/23/21 04:05 ED Lower Extremity MDM - Radiology Data Radiology results: report reviewed, image reviewed interpreted by me: Right foot x-ray: No fracture, soft tissue normal, no acute findings. Right foot 3 views INDICATION: Right foot pain after injury IMPRESSION: No fracture or subluxation of the right foot is identified. Small focal calcification noted within the soft tissues of the great toe medially. - Medical Decision Making Patient is a 41-year-old female who presents emergency room for right foot pain. Patient states while on for 3 days. Patient states pain is worsening. Patient had an x-ray done which was negative for acute findings. Patient does not require inpatient service. Patient not require further emergency medical service. Patient stable for discharge. Patient discharged home. I discussed all results and clinical findings with patient. I discussed plan of care with patient. Patient agrees with plan of care. Patient is stable for discharge. Patient will be discharged home. Patient given discharge instructions. Patient voiced understanding of discharge instructions. - Differential Diagnosis Sprain, strain, fracture, contusion, foot pain Critical care attestation.: If time is entered above; I have spent that time in minutes in the direct care of this critically ill patient, excluding procedure time. ED Disposition Clinical Impression: Right foot pain Right foot sprain Qualifiers: Encounter type: initial encounter Qualified Code(s): S93.601A - Unspecified sprain of right foot, initial encounter Disposition: HOME / SELF CARE / HOMELESS Is pt being admited?: No Does the pt Need Aspirin: No Condition: Stable Instructions: Foot Sprain, Foot Pain Additional Instructions: Patient to follow-up with primary care in 2 to 3 days. Patient to follow-up with orthopedist in 2 to 3 days. Patient to rest. Patient to increase water. Patient to avoid strenuous exercise or heavy lifting until cleared by the PA. Patient to take Tylenol or ibuprofen as needed for pain. Patient to continue all medications. Patient to return to the ER if condition worsens, changes or new symptoms arise. Referrals: HEMA ROGERS MD [Staff Physician] - 2-3 Days JIE MOYER MD [Staff Physician] - 2-3 Days Time of Disposition: 04:07
--- NOTE | 2021-07-23 04:13 | XRay Report ---
Right foot 3 views INDICATION: Right foot pain after injury IMPRESSION: No fracture or subluxation of the right foot is identified. Small focal calcification not ed within the soft tissues of the great toe medially. Signer Name: Jameson Bear MD Signed: 07/23/2021 4:09 AM Workstation Name: [id number]
== END 2021-07-23 04:30 | disposition home or self-care (01) ==
LOC: ED 02:57
DX: S93.601A Unspecified sprain of right foot, initial encounter (principal); F41.9 Anxiety disorder, unspecified; F31.9 Bipolar disorder, unspecified; F43.10 Post-traumatic stress disorder, unspecified; F90.9 Attention-deficit hyperactivity disorder, unspecified type; Z98.890 Other specified postprocedural states; Z88.2 Allergy status to sulfonamides; Z88.8 Allergy status to other drugs, medicaments and biological substances; W22.03XA Walked into furniture, initial encounter; Y93.89 Activity, other specified; Y92.89 Other specified places as the place of occurrence of the external cause; Y99.8 Other external cause status
CPT/HCPCS: 99283

== ENCOUNTER 2021-08-19 00:03 | Emergency (ER) | payer MEDICAID ==
--- NOTE | 2021-08-19 02:24 | Emergency Department Report ---
ED Eye Problem HPI - General Chief complaint: Eye Problems Stated complaint: RT EYE IRRITATION Source: patient Mode of arrival: Ambulatory Limitations: No Limitations - History of Present Illness Initial comments: Patient is a 41-year-old -[place] female with history of HIV, bipolar disorder, anxiety depression, PTSD and ADHD who presents to the ED with complaint of acute onset persistent right eye pain with redness, matting and purulent discharge for the last 2 days. Patient denies dizziness, syncope, fever, chills, traumatic injury, change in vision, nausea and vomiting, headache, sore throat or neck pain. MD chief complaint: eye pain (right eye pain), eye redness (right), other (Matting and purulent discharge from the right eye) -: Sudden, days(s) (2) Onset Description: sudden Location: right eye Place: home If Injury: none Eye Symptoms: redness, pain, itching, discharge Severity: moderate Severity scale (0 -10): 6 If Pain, Quality: aching Consistency: constant Context: recent uri Associated Symptoms: none, rhinorrhea. denies: neck pain, nausea/vomiting, cough, fever, shortness of breath Treatments Prior to Arrival: none - Related Data Patient Tetanus UTD: Yes Home Medications Medication Instructions Recorded Confirmed Last Taken Bictegrav/Emtricit/Tenofov Ala 1 tab PO DAILY 08/04/20 08/04/20 Unknown [Biktarvy 50-200-25 mg (Nf)] Dextroamphetamine/Amphetamine 20 mg PO DAILY 08/04/20 08/04/20 Unknown [Adderall Xr 20 mg Capsule] Ondansetron [Zofran Odt] 4 mg PO Q8HR 08/04/20 08/04/20 Unknown Valacyclovir HCl [Valacyclovir] 500 mg PO DAILY 08/04/20 08/04/20 Unknown Previous Rx's Medication Instructions Recorded Last Taken Type QUEtiapine [SEROquel] 200 mg PO QHS #14 tablet 01/04/19 Unknown Rx risperiDONE [RisperDAL] 0.5 mg PO BID #60 tablet 10/26/19 Unknown Rx Fluconazole [Diflucan TAB] 100 mg PO QDAY #7 tablet 08/04/20 Unknown Rx Magnesium Oxide [Mag-Ox] 400 mg PO QDAY #30 tablet 08/04/20 Unknown Rx Nitrofurantoin Meade/M-Cryst 100 mg PO Q12HR #14 capsule 08/04/20 Unknown Rx [Macrobid CAP] cefUROXime [Ceftin] 250 mg PO Q12H #14 tablet 08/12/20 Unknown Rx clonazePAM [ Klonopin] 0.5 mg PO DAILY PRN #15 tab 08/12/20 Unknown Rx risperiDONE [RisperDAL] 0.25 mg PO BID #60 tab 08/12/20 Unknown Rx Moxifloxacin 0.5% 1 drops OP Q8H 7 Days #1 bottle 08/13/20 Unknown Rx Fluticasone [Flonase] 1 spray NS QDAY #1 bottle 08/16/20 Unknown Rx Omeprazole 40 mg PO DAILY #30 capsule. 08/16/20 Unknown Rx dexAMETHasone [Decadron] 4 mg PO HS #120 udc 08/16/20 Unknown Rx Ibuprofen [Motrin 800 MG tab] 800 mg PO Q8HR PRN #30 tablet 09/04/20 Unknown Rx Erythromycin [Erythromycin Ophth 1 applic OS BID #1 tube 10/05/20 Unknown Rx Oint] Azithromycin [Zithromax Z-MERT] 250 mg PO DAILY #6 tablet 02/03/21 Unknown Rx Benzonatate [Tessalon Perles] 100 mg PO Q8HR #30 capsule 02/03/21 Unknown Rx Fluticasone [Flonase] 1 spray NS QDAY #1 bottle 02/03/21 Unknown Rx Ibuprofen [Motrin] 600 mg PO Q8H PRN #24 tablet 02/03/21 Unknown Rx Ibuprofen [Motrin 600 MG tab] 600 mg PO Q8H PRN #20 03/07/21 Unknown Rx Albuterol Sulfate [Proair 90 mcg IH Q4HR PRN #2 aer.pow.ba 07/20/21 Unknown Rx Respiclick] Mineral Oil/Petrolatum,White 7 gm OP PRN PRN #1 oint...g. 07/20/21 Unknown Rx [Refresh Lacri-Lube Ointment] Albuterol Mdi (or & Nicu Only) 2 puff IH QID PRN #8.5 gram 07/22/21 Unknown Rx [ProAir HFA Inhaler] Cetirizine HCl [Zyrtec 10mg tab] 10 mg PO DAILY #30 tablet 07/22/21 Unknown Rx Fluconazole [Diflucan TAB] 200 mg PO QDAY #1 tablet 07/22/21 Unknown Rx Olopatadine HCl [Patanol 0.1%] 1 drop OP BID #5 ml 07/22/21 Unknown Rx Gentamicin 0.3% Ophth Soln 1 drops OP Q4H #5 ml 08/19/21 Unknown Rx Allergies Allergy/AdvReac Type Severity Reaction Status Date / Time Sulfa (Sulfonamide Allergy Swelling Verified 07/20/21 05:54 Antibiotics) sulfamethoxazole Allergy Swelling Verified 07/20/21 05:54 [From Bactrim] trimethoprim [From Bactrim] Allergy Swelling Verified 07/20/21 05:54 ziprasidone [From Geodon] Allergy Unknown Verified 07/20/21 05:54 ED Review of Systems ROS: Stated complaint: RT EYE IRRITATION Other details as noted in HPI Constitutional: denies: chills, fever Eyes: eye pain (Right eye pain), eye discharge (Right eye purulent discharge). denies: vision change ENT: denies: ear pain, throat pain Respiratory: denies: cough, shortness of breath, wheezing Cardiovascular: denies: chest pain, palpitations Endocrine: no symptoms reported Gastrointestinal: denies: abdominal pain, nausea, diarrhea Genitourinary: denies: urgency, dysuria, discharge Musculoskeletal: denies: back pain, joint swelling, arthralgia Skin: denies: rash, lesions Neurological: denies: headache, weakness, paresthesias Psychiatric: denies: anxiety, depression Hematological/Lymphatic: denies: easy bleeding, easy bruising ED Past Medical Hx - Past Medical History Previous Medical History?: Yes Hx Hypertension: No Hx Psychiatric Treatment: Yes (PTSD, BIPOLAR, ADHD,anxiety) Hx Asthma: No Hx HIV: Yes (Last CD4 800's 07/19/2019) Additional medical history: ezcema/ STATES "WHATEVER THEY DX ME WITH". - Surgical History Past Surgical History?: Yes Hx Coronary Stent: No Additional Surgical History: D&C. breast implants. wisdom teeth removed. tubal ligation - Social History Smoking Status: Never Smoker Substance Use Type: None - Medications Home Medications: Home Medications Medication Instructions Recorded Confirmed Last Taken Type QUEtiapine [SEROquel] 200 mg PO QHS #14 tablet 01/04/19 08/04/20 Unknown Rx risperiDONE [RisperDAL] 0.5 mg PO BID #60 tablet 10/26/19 08/04/20 Unknown Rx Bictegrav/Emtricit/Tenofov Ala 1 tab PO DAILY 08/04/20 08/04/20 Unknown History [Biktarvy 50-200-25 mg (Nf)] Dextroamphetamine/Amphetamine 20 mg PO DAILY 08/04/20 08/04/20 Unknown History [Adderall Xr 20 mg Capsule] Fluconazole [Diflucan TAB] 100 mg PO QDAY #7 tablet 08/04/20 Unknown Rx Magnesium Oxide [Mag-Ox] 400 mg PO QDAY #30 tablet 08/04/20 Unknown Rx Nitrofurantoin Meade/M-Cryst 100 mg PO Q12HR #14 capsule 08/04/20 Unknown Rx [Macrobid CAP] Ondansetron [Zofran Odt] 4 mg PO Q8HR 08/04/20 08/04/20 Unknown History Valacyclovir HCl [Valacyclovir] 500 mg PO DAILY 08/04/20 08/04/20 Unknown History cefUROXime [Ceftin] 250 mg PO Q12H #14 tablet 08/12/20 Unknown Rx clonazePAM [ Klonopin] 0.5 mg PO DAILY PRN #15 tab 08/12/20 Unknown Rx risperiDONE [RisperDAL] 0.25 mg PO BID #60 tab 08/12/20 Unknown Rx Moxifloxacin 0.5% 1 drops OP Q8H 7 Days #1 bottle 08/13/20 Unknown Rx Fluticasone [Flonase] 1 spray NS QDAY #1 bottle 08/16/20 Unknown Rx Omeprazole 40 mg PO DAILY #30 capsule. 08/16/20 Unknown Rx dexAMETHasone [Decadron] 4 mg PO HS #120 udc 08/16/20 Unknown Rx Ibuprofen [Motrin 800 MG tab] 800 mg PO Q8HR PRN #30 tablet 09/04/20 Unknown Rx Erythromycin [Erythromycin Ophth 1 applic OS BID #1 tube 10/05/20 Unknown Rx Oint] Azithromycin [Zithromax Z-MERT] 250 mg PO DAILY #6 tablet 02/03/21 Unknown Rx Benzonatate [Tessalon Perles] 100 mg PO Q8HR #30 capsule 02/03/21 Unknown Rx Fluticasone [Flonase] 1 spray NS QDAY #1 bottle 02/03/21 Unknown Rx Ibuprofen [Motrin] 600 mg PO Q8H PRN #24 tablet 02/03/21 Unknown Rx Ibuprofen [Motrin 600 MG tab] 600 mg PO Q8H PRN #20 03/07/21 Unknown Rx Albuterol Sulfate [Proair 90 mcg IH Q4HR PRN #2 aer.pow.ba 07/20/21 Unknown Rx Respiclick] Mineral Oil/Petrolatum,White 7 gm OP PRN PRN #1 oint...g. 07/20/21 Unknown Rx [Refresh Lacri-Lube Ointment] Albuterol Mdi (or & Nicu Only) 2 puff IH QID PRN #8.5 gram 07/22/21 Unknown Rx [ProAir HFA Inhaler] Cetirizine HCl [Zyrtec 10mg tab] 10 mg PO DAILY #30 tablet 07/22/21 Unknown Rx Fluconazole [Diflucan TAB] 200 mg PO QDAY #1 tablet 07/22/21 Unknown Rx Olopatadine HCl [Patanol 0.1%] 1 drop OP BID #5 ml 07/22/21 Unknown Rx Gentamicin 0.3% Ophth Soln 1 drops OP Q4H #5 ml 08/19/21 Unknown Rx ED Physical Exam - General Limitations: No Limitations General appearance: alert, in no apparent distress - Head Head exam: Present: atraumatic, normocephalic, normal inspection - Eye Eye exam: Present: normal appearance, PERRL, EOMI, other (Erythematous right conjunctiva with matting and purulent discharge) Pupils: Present: normal accommodation - ENT ENT exam: Present: normal exam, normal orophraynx, mucous membranes moist, TM's normal bilaterally, normal external ear exam - Neck Neck exam: Present: normal inspection, full ROM - Respiratory Respiratory exam: Present: normal lung sounds bilaterally. Absent: respiratory distress, wheezes, rales, rhonchi, chest wall tenderness, accessory muscle use, decreased breath sounds, prolonged expiratory - Cardiovascular Cardiovascular Exam: Present: normal rhythm, bradycardia, normal heart sounds. Absent: systolic murmur, diastolic murmur, rubs, gallop - GI/Abdominal GI/Abdominal exam: Present: soft, normal bowel sounds. Absent: tenderness, guarding, rebound, hyperactive bowel sounds, mass - Extremities Exam Extremities exam: Present: normal inspection, full ROM, normal capillary refill - Back Exam Back exam: Present: normal inspection, full ROM. Absent: tenderness, CVA tenderness (R), CVA tenderness (L), muscle spasm, paraspinal tenderness, vertebral tenderness - Neurological Exam Neurological exam: Present: alert, oriented X3, CN II-XII intact, normal gait, reflexes normal - Psychiatric Psychiatric exam: Present: normal affect, normal mood - Skin Skin exam: Present: warm, dry, intact, normal color. Absent: rash ED Course Vital Signs 08/19/21 00:34 Temperature 97.9 F Pulse Rate 49 L Respiratory 18 Rate Blood Pressure 155/97 O2 Sat by Pulse 83 L Oximetry ED Medical Decision Making - Medical Decision Making This is a 41-year-old -[place] female with history of HIV, bipolar disorder, anxiety depression, PTSD and ADHD who presents to the ED with complaint of acute onset persistent right eye pain with redness, matting and purulent discharge for the last 2 days. In the ED, patient is alert and oriented x3 and is not in any distress. Based on the history and physical exam findings, the patient was discharged home on medications and advised to follow- up with her primary care physician in 7 to 10 days for reevaluation. Patient was advised to return to the ED immediately if symptoms get worse. Patient verbalized understanding of all instructions given. - Differential Diagnosis Allergic conjunctivitis; bacterial /viral conjunctivitis; URI Critical care attestation.: If time is entered above; I have spent that time in minutes in the direct care of this critically ill patient, excluding procedure time. ED Disposition Clinical Impression: Acute conjunctivitis of right eye Qualifiers: Acute conjunctivitis type: unspecified Qualified Code(s): H10.31 - Unspecified acute conjunctivitis, right eye Disposition: HOME / SELF CARE / HOMELESS Is pt being admited?: No Does the pt Need Aspirin: No Condition: Stable Instructions: Bacterial Conjunctivitis, Adult, [id number] Additional Instructions: Apply the medication to the affected eye as advised, follow-up with your primary care physician in 5 to 7 days for reevaluation. Return to the ED immediately if symptoms get worse. Prescriptions: Gentamicin 0.3% Ophth Soln 1 drops OP Q4H #5 ml Referrals: [facility] [Provider Group] - 3-5 Days Time of Disposition: 02:25 Print Language: BELARUSIAN
[2021-08-19 03:03] VITALS: BP 142/77
== END 2021-08-19 03:01 | disposition home or self-care (01) ==
LOC: ED 00:03
DX: H10.9 Unspecified conjunctivitis (principal); F31.9 Bipolar disorder, unspecified; F41.9 Anxiety disorder, unspecified; Z79.899 Other long term (current) drug therapy; Z88.2 Allergy status to sulfonamides; Z88.8 Allergy status to other drugs, medicaments and biological substances
CPT/HCPCS: 99282

== ENCOUNTER 2021-08-27 04:38 | Emergency (ER) | payer MEDICAID ==
--- NOTE | 2021-08-27 05:34 | Emergency Department Report ---
ED ENT HPI - General Chief complaint: Sore Throat Stated complaint: SORE THROAT ITCHING VAGINA ,ITCHY EYES Time Seen by Provider: 08/27/21 05:19 Source: patient Mode of arrival: Ambulatory Limitations: No Limitations - History of Present Illness Initial comments: Patient 41-year-old female who presents with sore throat x3 days. Patient describes symptoms as burning tingling, there is no wheezing there is no stridor, there has been no dizziness or lightheadedness. There is been no fever or chills. Patient is tolerating p.o. intake swallowing intact without rash, there is no shortness of breathe MD complaint: sore throat Onset/Timin -: days(s) - Related Data Home Medications Medication Instructions Recorded Confirmed Last Taken Bictegrav/Emtricit/Tenofov Ala 1 tab PO DAILY 08/04/20 08/04/20 Unknown [Biktarvy 50-200-25 mg (Nf)] Dextroamphetamine/Amphetamine 20 mg PO DAILY 08/04/20 08/04/20 Unknown [Adderall Xr 20 mg Capsule] Ondansetron [Zofran Odt] 4 mg PO Q8HR 08/04/20 08/04/20 Unknown Valacyclovir HCl [Valacyclovir] 500 mg PO DAILY 08/04/20 08/04/20 Unknown Previous Rx's Medication Instructions Recorded Last Taken Type QUEtiapine [SEROquel] 200 mg PO QHS #14 tablet 01/04/19 Unknown Rx risperiDONE [RisperDAL] 0.5 mg PO BID #60 tablet 10/26/19 Unknown Rx Fluconazole [Diflucan TAB] 100 mg PO QDAY #7 tablet 08/04/20 Unknown Rx Magnesium Oxide [Mag-Ox] 400 mg PO QDAY #30 tablet 08/04/20 Unknown Rx Nitrofurantoin [place]/M-Cryst 100 mg PO Q12HR #14 capsule 08/04/20 Unknown Rx [Macrobid CAP] cefUROXime [Ceftin] 250 mg PO Q12H #14 tablet 08/12/20 Unknown Rx clonazePAM [ Klonopin] 0.5 mg PO DAILY PRN #15 tab 08/12/20 Unknown Rx risperiDONE [RisperDAL] 0.25 mg PO BID #60 tab 08/12/20 Unknown Rx Moxifloxacin 0.5% 1 drops OP Q8H 7 Days #1 bottle 08/13/20 Unknown Rx Fluticasone [Flonase] 1 spray NS QDAY #1 bottle 08/16/20 Unknown Rx Omeprazole 40 mg PO DAILY #30 capsule. 08/16/20 Unknown Rx dexAMETHasone [Decadron] 4 mg PO HS #120 udc 08/16/20 Unknown Rx Ibuprofen [Motrin 800 MG tab] 800 mg PO Q8HR PRN #30 tablet 09/04/20 Unknown Rx Erythromycin [Erythromycin Ophth 1 applic OS BID #1 tube 10/05/20 Unknown Rx Oint] Azithromycin [Zithromax Z-MERT] 250 mg PO DAILY #6 tablet 02/03/21 Unknown Rx Benzonatate [Tessalon Perles] 100 mg PO Q8HR #30 capsule 02/03/21 Unknown Rx Fluticasone [Flonase] 1 spray NS QDAY #1 bottle 02/03/21 Unknown Rx Ibuprofen [Motrin] 600 mg PO Q8H PRN #24 tablet 02/03/21 Unknown Rx Ibuprofen [Motrin 600 MG tab] 600 mg PO Q8H PRN #20 03/07/21 Unknown Rx Albuterol Sulfate [Proair 90 mcg IH Q4HR PRN #2 aer.pow.ba 07/20/21 Unknown Rx Respiclick] Mineral Oil/Petrolatum,White 7 gm OP PRN PRN #1 oint...g. 07/20/21 Unknown Rx [Refresh Lacri-Lube Ointment] Albuterol Mdi (or & Nicu Only) 2 puff IH QID PRN #8.5 gram 07/22/21 Unknown Rx [ProAir HFA Inhaler] Cetirizine HCl [Zyrtec 10mg tab] 10 mg PO DAILY #30 tablet 07/22/21 Unknown Rx Fluconazole [Diflucan TAB] 200 mg PO QDAY #1 tablet 07/22/21 Unknown Rx Olopatadine HCl [Patanol 0.1%] 1 drop OP BID #5 ml 07/22/21 Unknown Rx Gentamicin 0.3% Ophth Soln 1 drops OP Q4H #5 ml 08/19/21 Unknown Rx Ibuprofen [Motrin 800 MG tab] 800 mg PO Q8HR PRN #30 tablet 08/27/21 Unknown Rx metroNIDAZOLE [Flagyl] 500 mg PO BID 7 Days #14 tab 08/27/21 Unknown Rx Allergies Allergy/AdvReac Type Severity Reaction Status Date / Time Sulfa (Sulfonamide Allergy Swelling Verified 07/20/21 05:54 Antibiotics) sulfamethoxazole Allergy Swelling Verified 07/20/21 05:54 [From Bactrim] trimethoprim [From Bactrim] Allergy Swelling Verified 07/20/21 05:54 ziprasidone [From Geodon] Allergy Unknown Verified 07/20/21 05:54 ED Dental HPI - General Chief complaint: Sore Throat Stated complaint: SORE THROAT ITCHING VAGINA ,ITCHY EYES Time Seen by Provider: 08/27/21 05:19 Source: patient Mode of arrival: Ambulatory Limitations: No Limitations - Related Data Home Medications Medication Instructions Recorded Confirmed Last Taken Bictegrav/Emtricit/Tenofov Ala 1 tab PO DAILY 08/04/20 08/04/20 Unknown [Biktarvy 50-200-25 mg (Nf)] Dextroamphetamine/Amphetamine 20 mg PO DAILY 08/04/20 08/04/20 Unknown [Adderall Xr 20 mg Capsule] Ondansetron [Zofran Odt] 4 mg PO Q8HR 08/04/20 08/04/20 Unknown Valacyclovir HCl [Valacyclovir] 500 mg PO DAILY 08/04/20 08/04/20 Unknown Previous Rx's Medication Instructions Recorded Last Taken Type QUEtiapine [SEROquel] 200 mg PO QHS #14 tablet 01/04/19 Unknown Rx risperiDONE [RisperDAL] 0.5 mg PO BID #60 tablet 10/26/19 Unknown Rx Fluconazole [Diflucan TAB] 100 mg PO QDAY #7 tablet 08/04/20 Unknown Rx Magnesium Oxide [Mag-Ox] 400 mg PO QDAY #30 tablet 08/04/20 Unknown Rx Nitrofurantoin [place]/M-Cryst 100 mg PO Q12HR #14 capsule 08/04/20 Unknown Rx [Macrobid CAP] cefUROXime [Ceftin] 250 mg PO Q12H #14 tablet 08/12/20 Unknown Rx clonazePAM [ Klonopin] 0.5 mg PO DAILY PRN #15 tab 08/12/20 Unknown Rx risperiDONE [RisperDAL] 0.25 mg PO BID #60 tab 08/12/20 Unknown Rx Moxifloxacin 0.5% 1 drops OP Q8H 7 Days #1 bottle 08/13/20 Unknown Rx Fluticasone [Flonase] 1 spray NS QDAY #1 bottle 08/16/20 Unknown Rx Omeprazole 40 mg PO DAILY #30 capsule. 08/16/20 Unknown Rx dexAMETHasone [Decadron] 4 mg PO HS #120 udc 08/16/20 Unknown Rx Ibuprofen [Motrin 800 MG tab] 800 mg PO Q8HR PRN #30 tablet 09/04/20 Unknown Rx Erythromycin [Erythromycin Ophth 1 applic OS BID #1 tube 10/05/20 Unknown Rx Oint] Azithromycin [Zithromax Z-MERT] 250 mg PO DAILY #6 tablet 02/03/21 Unknown Rx Benzonatate [Tessalon Perles] 100 mg PO Q8HR #30 capsule 02/03/21 Unknown Rx Fluticasone [Flonase] 1 spray NS QDAY #1 bottle 02/03/21 Unknown Rx Ibuprofen [Motrin] 600 mg PO Q8H PRN #24 tablet 02/03/21 Unknown Rx Ibuprofen [Motrin 600 MG tab] 600 mg PO Q8H PRN #20 03/07/21 Unknown Rx Albuterol Sulfate [Proair 90 mcg IH Q4HR PRN #2 aer.pow.ba 07/20/21 Unknown Rx Respiclick] Mineral Oil/Petrolatum,White 7 gm OP PRN PRN #1 oint...g. 07/20/21 Unknown Rx [Refresh Lacri-Lube Ointment] Albuterol Mdi (or & Nicu Only) 2 puff IH QID PRN #8.5 gram 07/22/21 Unknown Rx [ProAir HFA Inhaler] Cetirizine HCl [Zyrtec 10mg tab] 10 mg PO DAILY #30 tablet 07/22/21 Unknown Rx Fluconazole [Diflucan TAB] 200 mg PO QDAY #1 tablet 07/22/21 Unknown Rx Olopatadine HCl [Patanol 0.1%] 1 drop OP BID #5 ml 07/22/21 Unknown Rx Gentamicin 0.3% Ophth Soln 1 drops OP Q4H #5 ml 08/19/21 Unknown Rx Ibuprofen [Motrin 800 MG tab] 800 mg PO Q8HR PRN #30 tablet 08/27/21 Unknown Rx metroNIDAZOLE [Flagyl] 500 mg PO BID 7 Days #14 tab 08/27/21 Unknown Rx Allergies Allergy/AdvReac Type Severity Reaction Status Date / Time Sulfa (Sulfonamide Allergy Swelling Verified 07/20/21 05:54 Antibiotics) sulfamethoxazole Allergy Swelling Verified 07/20/21 05:54 [From Bactrim] trimethoprim [From Bactrim] Allergy Swelling Verified 07/20/21 05:54 ziprasidone [From Geodon] Allergy Unknown Verified 07/20/21 05:54 ED Review of Systems ROS: Stated complaint: SORE THROAT ITCHING VAGINA ,ITCHY EYES Other details as noted in HPI Constitutional: denies: chills, fever Eyes: denies: eye pain, eye discharge, vision change ENT: throat pain, congestion. denies: ear pain Respiratory: denies: cough, shortness of breath, wheezing Cardiovascular: denies: chest pain, palpitations Endocrine: no symptoms reported Gastrointestinal: denies: abdominal pain, nausea, vomiting, diarrhea Genitourinary: denies: urgency, dysuria, frequency, hematuria, discharge, dyspareunia Musculoskeletal: denies: back pain, joint swelling, arthralgia Skin: as per HPI. denies: rash, lesions Neurological: denies: headache, weakness, numbness, paresthesias, confusion, vertigo Psychiatric: denies: anxiety, depression Hematological/Lymphatic: denies: easy bleeding, easy bruising ED Past Medical Hx - Past Medical History Previous Medical History?: Yes Hx Hypertension: No Hx Psychiatric Treatment: Yes (PTSD, BIPOLAR, ADHD,anxiety) Hx Asthma: No Hx HIV: Yes (Last CD4 800's 07/19/2019) Additional medical history: ezcema/ STATES "WHATEVER THEY DX ME WITH". - Surgical History Past Surgical History?: Yes Hx Coronary Stent: No Additional Surgical History: D&C. breast implants. wisdom teeth removed. tubal ligation - Social History Smoking Status: Never Smoker Substance Use Type: None - Medications Home Medications: Home Medications Medication Instructions Recorded Confirmed Last Taken Type QUEtiapine [SEROquel] 200 mg PO QHS #14 tablet 01/04/19 08/04/20 Unknown Rx risperiDONE [RisperDAL] 0.5 mg PO BID #60 tablet 10/26/19 08/04/20 Unknown Rx Bictegrav/Emtricit/Tenofov Ala 1 tab PO DAILY 08/04/20 08/04/20 Unknown History [Biktarvy 50-200-25 mg (Nf)] Dextroamphetamine/Amphetamine 20 mg PO DAILY 08/04/20 08/04/20 Unknown History [Adderall Xr 20 mg Capsule] Fluconazole [Diflucan TAB] 100 mg PO QDAY #7 tablet 08/04/20 Unknown Rx Magnesium Oxide [Mag-Ox] 400 mg PO QDAY #30 tablet 08/04/20 Unknown Rx Nitrofurantoin [place]/M-Cryst 100 mg PO Q12HR #14 capsule 08/04/20 Unknown Rx [Macrobid CAP] Ondansetron [Zofran Odt] 4 mg PO Q8HR 08/04/20 08/04/20 Unknown History Valacyclovir HCl [Valacyclovir] 500 mg PO DAILY 08/04/20 08/04/20 Unknown History cefUROXime [Ceftin] 250 mg PO Q12H #14 tablet 08/12/20 Unknown Rx clonazePAM [ Klonopin] 0.5 mg PO DAILY PRN #15 tab 08/12/20 Unknown Rx risperiDONE [RisperDAL] 0.25 mg PO BID #60 tab 08/12/20 Unknown Rx Moxifloxacin 0.5% 1 drops OP Q8H 7 Days #1 bottle 08/13/20 Unknown Rx Fluticasone [Flonase] 1 spray NS QDAY #1 bottle 08/16/20 Unknown Rx Omeprazole 40 mg PO DAILY #30 capsule. 08/16/20 Unknown Rx dexAMETHasone [Decadron] 4 mg PO HS #120 udc 08/16/20 Unknown Rx Ibuprofen [Motrin 800 MG tab] 800 mg PO Q8HR PRN #30 tablet 09/04/20 Unknown Rx Erythromycin [Erythromycin Ophth 1 applic OS BID #1 tube 10/05/20 Unknown Rx Oint] Azithromycin [Zithromax Z-MERT] 250 mg PO DAILY #6 tablet 02/03/21 Unknown Rx Benzonatate [Tessalon Perles] 100 mg PO Q8HR #30 capsule 02/03/21 Unknown Rx Fluticasone [Flonase] 1 spray NS QDAY #1 bottle 02/03/21 Unknown Rx Ibuprofen [Motrin] 600 mg PO Q8H PRN #24 tablet 02/03/21 Unknown Rx Ibuprofen [Motrin 600 MG tab] 600 mg PO Q8H PRN #20 03/07/21 Unknown Rx Albuterol Sulfate [Proair 90 mcg IH Q4HR PRN #2 aer.pow.ba 07/20/21 Unknown Rx Respiclick] Mineral Oil/Petrolatum,White 7 gm OP PRN PRN #1 oint...g. 07/20/21 Unknown Rx [Refresh Lacri-Lube Ointment] Albuterol Mdi (or & Nicu Only) 2 puff IH QID PRN #8.5 gram 07/22/21 Unknown Rx [ProAir HFA Inhaler] Cetirizine HCl [Zyrtec 10mg tab] 10 mg PO DAILY #30 tablet 07/22/21 Unknown Rx Fluconazole [Diflucan TAB] 200 mg PO QDAY #1 tablet 07/22/21 Unknown Rx Olopatadine HCl [Patanol 0.1%] 1 drop OP BID #5 ml 07/22/21 Unknown Rx Gentamicin 0.3% Ophth Soln 1 drops OP Q4H #5 ml 08/19/21 Unknown Rx Ibuprofen [Motrin 800 MG tab] 800 mg PO Q8HR PRN #30 tablet 08/27/21 Unknown Rx metroNIDAZOLE [Flagyl] 500 mg PO BID 7 Days #14 tab 08/27/21 Unknown Rx ED Physical Exam - General Limitations: No Limitations General appearance: alert, in no apparent distress - Head Head exam: Present: atraumatic, normocephalic - Eye Eye exam: Present: normal appearance, PERRL, EOMI Pupils: Present: normal accommodation - ENT ENT exam: Present: normal orophraynx, mucous membranes moist, TM's normal bilaterally, normal external ear exam - Expanded ENT Exam Expanded Ear exam: Present: normal external inspection Throat exam: Negative: tonsillar erythema, tonsillomegaly, tonsillar exudate, R peritonsillar mass, L peritonsillar mass - Neck Neck exam: Present: normal inspection, full ROM. Absent: tenderness, lymphadenopathy - Respiratory Respiratory exam: Present: normal lung sounds bilaterally. Absent: respiratory distress, wheezes, rales, rhonchi, stridor, chest wall tenderness - Cardiovascular Cardiovascular Exam: Present: regular rate, normal rhythm, normal heart sounds. Absent: systolic murmur, diastolic murmur, rubs, gallop - GI/Abdominal GI/Abdominal exam: Present: soft, normal bowel sounds. Absent: distended, tenderness, guarding, rebound, rigid, bruit, hernia - Rectal Rectal exam: Present: deferred - Extremities Exam Extremities exam: Present: normal inspection, full ROM, normal capillary refill. Absent: tenderness - Back Exam Back exam: Present: normal inspection, full ROM. Absent: CVA tenderness (R), CVA tenderness (L), muscle spasm - Neurological Exam Neurological exam: Present: alert, oriented X3, CN II-XII intact - Psychiatric Psychiatric exam: Present: normal affect, normal mood. Absent: anxious - Skin Skin exam: Present: warm, dry, intact, normal color. Absent: rash ED Medical Decision Making - Medical Decision Making Pharynx exam is clear there is no erythema no exudate no lesions. Uvula is midline there is no swelling. There is no fever or chills rapid strep sent and pending. Patient now advises BV symptoms white fishy discharge is not sexually active. Requesting treatment for BV. Patient denies other symptoms. Plan DC to home, NSAIDs as needed throat pain. Follow-up with primary care doctor in 2 to 3 days. Return to ED should symptoms worsen. Will call patient with positive rapid strep test Critical care attestation.: If time is entered above; I have spent that time in minutes in the direct care of this critically ill patient, excluding procedure time. ED Disposition Clinical Impression: Pharyngitis Qualifiers: Pharyngitis/tonsillitis etiology: unspecified etiology Qualified Code(s): J02.9 - Acute pharyngitis, unspecified Vaginitis Qualifiers: Chronicity: acute Qualified Code(s): N76.0 - Acute vaginitis Disposition: 01 HOME / SELF CARE / HOMELESS Is pt being admited?: No Does the pt Need Aspirin: No Condition: Stable Instructions: Bacterial Vaginosis, [id number], Pharyngitis Additional Instructions: Take medications as prescribed, do not drink alcohol with Flagyl. Note with your doctor in 2 to 3 days. Return to emergency should symptoms worsen. Prescriptions: metroNIDAZOLE [Flagyl] 500 mg PO BID 7 Days #14 tab Ibuprofen [Motrin 800 MG tab] 800 mg PO Q8HR PRN #30 tablet PRN Reason: pain fever Referrals: BUCKY THOMAS MD [Staff Physician] - 3-5 Days Forms: Work/School Release Form(ED) Time of Disposition: 05:59
[2021-08-27 06:36] VITALS: BP 136/96
== END 2021-08-27 06:36 | disposition home or self-care (01) ==
LOC: ED 04:38
DX: J02.9 Acute pharyngitis, unspecified (principal); N76.0 Acute vaginitis; F31.9 Bipolar disorder, unspecified; F41.9 Anxiety disorder, unspecified; Z88.2 Allergy status to sulfonamides; Z88.8 Allergy status to other drugs, medicaments and biological substances; Z79.899 Other long term (current) drug therapy
CPT/HCPCS: 87116; 87430; 99283

== ENCOUNTER 2021-08-31 14:37 | Emergency (ER) | payer MEDICAID ==
[2021-08-31 14:44] VITALS: BP 107/55
[2021-08-31] MEDS ORDERED: NAPROXEN 500 MG TAB PO ONE (15:14)
--- NOTE | 2021-08-31 15:16 | Emergency Department Report ---
ED Back Pain/Injury HPI - General Chief Complaint: Back Pain/Injury Stated Complaint: Back pain Time Seen by Provider: 08/31/21 14:57 Source: patient Limitations: No Limitations - History of Present Illness Initial Comments: 41-year-old female presents to the emergency department complaining of severe lower back pain. Patient states that she bent over to pick something up a few hours ago and started having a severe pain across her lower back. The pain is poorly localized to her lower back. It does not radiate below her lumbar region or up into her upper back. She denies any lower extremity numbness/tingling/weakness. She denies any abdominal pain, dysuria, hematuria, bowel or bladder dysfunction, saddle numbness, or foot drop. She has had problems with her back in the past and has had x-rays MD Complaint: back pain Onset/Timin (Case) -: Sudden, This afternoon Similar Symptoms Previously: Yes Place: home Radiation: none Severity: severe Severity scale (0 -10): 9 Quality: sharp, stabbing Consistency: constant Improves With: none Worsens With: movement Associated Symptoms: denies other symptoms - Related Data Home Medications Medication Instructions Recorded Confirmed Last Taken Bictegrav/Emtricit/Tenofov Ala 1 tab PO DAILY 08/04/20 08/04/20 Unknown [Biktarvy 50-200-25 mg (Nf)] Dextroamphetamine/Amphetamine 20 mg PO DAILY 08/04/20 08/04/20 Unknown [Adderall Xr 20 mg Capsule] Ondansetron [Zofran Odt] 4 mg PO Q8HR 08/04/20 08/04/20 Unknown Valacyclovir HCl [Valacyclovir] 500 mg PO DAILY 08/04/20 08/04/20 Unknown Previous Rx's Medication Instructions Recorded Last Taken Type QUEtiapine [SEROquel] 200 mg PO QHS #14 tablet 01/04/19 Unknown Rx risperiDONE [RisperDAL] 0.5 mg PO BID #60 tablet 10/26/19 Unknown Rx Fluconazole [Diflucan TAB] 100 mg PO QDAY #7 tablet 08/04/20 Unknown Rx Magnesium Oxide [Mag-Ox] 400 mg PO QDAY #30 tablet 08/04/20 Unknown Rx Nitrofurantoin [place]/M-Cryst 100 mg PO Q12HR #14 capsule 08/04/20 Unknown Rx [Macrobid CAP] cefUROXime [Ceftin] 250 mg PO Q12H #14 tablet 08/12/20 Unknown Rx clonazePAM [ Klonopin] 0.5 mg PO DAILY PRN #15 tab 08/12/20 Unknown Rx risperiDONE [RisperDAL] 0.25 mg PO BID #60 tab 08/12/20 Unknown Rx Moxifloxacin 0.5% 1 drops OP Q8H 7 Days #1 bottle 08/13/20 Unknown Rx Fluticasone [Flonase] 1 spray NS QDAY #1 bottle 08/16/20 Unknown Rx Omeprazole 40 mg PO DAILY #30 capsule. 08/16/20 Unknown Rx dexAMETHasone [Decadron] 4 mg PO HS #120 udc 08/16/20 Unknown Rx Ibuprofen [Motrin 800 MG tab] 800 mg PO Q8HR PRN #30 tablet 09/04/20 Unknown Rx Erythromycin [Erythromycin Ophth 1 applic OS BID #1 tube 10/05/20 Unknown Rx Oint] Azithromycin [Zithromax Z-MERT] 250 mg PO DAILY #6 tablet 02/03/21 Unknown Rx Benzonatate [Tessalon Perles] 100 mg PO Q8HR #30 capsule 02/03/21 Unknown Rx Fluticasone [Flonase] 1 spray NS QDAY #1 bottle 02/03/21 Unknown Rx Ibuprofen [Motrin] 600 mg PO Q8H PRN #24 tablet 02/03/21 Unknown Rx Ibuprofen [Motrin 600 MG tab] 600 mg PO Q8H PRN #20 03/07/21 Unknown Rx Albuterol Sulfate [Proair 90 mcg IH Q4HR PRN #2 aer.pow.ba 07/20/21 Unknown Rx Respiclick] Mineral Oil/Petrolatum,White 7 gm OP PRN PRN #1 oint...g. 07/20/21 Unknown Rx [Refresh Lacri-Lube Ointment] Albuterol Mdi (or & Nicu Only) 2 puff IH QID PRN #8.5 gram 07/22/21 Unknown Rx [ProAir HFA Inhaler] Cetirizine HCl [Zyrtec 10mg tab] 10 mg PO DAILY #30 tablet 07/22/21 Unknown Rx Fluconazole [Diflucan TAB] 200 mg PO QDAY #1 tablet 07/22/21 Unknown Rx Olopatadine HCl [Patanol 0.1%] 1 drop OP BID #5 ml 07/22/21 Unknown Rx Gentamicin 0.3% Ophth Soln 1 drops OP Q4H #5 ml 08/19/21 Unknown Rx Ibuprofen [Motrin 800 MG tab] 800 mg PO Q8HR PRN #30 tablet 08/27/21 Unknown Rx metroNIDAZOLE [Flagyl] 500 mg PO BID 7 Days #14 tab 08/27/21 Unknown Rx Allergies Allergy/AdvReac Type Severity Reaction Status Date / Time Sulfa (Sulfonamide Allergy Swelling Verified 08/31/21 14:42 Antibiotics) sulfamethoxazole Allergy Swelling Verified 08/31/21 14:42 [From Bactrim] trimethoprim [From Bactrim] Allergy Swelling Verified 08/31/21 14:42 ziprasidone [From Geodon] Allergy Unknown Verified 08/31/21 14:42 ED Review of Systems ROS: Stated complaint: BACK PAIN Other details as noted in HPI Constitutional: denies: chills, fever Eyes: denies: eye pain, eye discharge, vision change ENT: denies: ear pain, throat pain Respiratory: denies: cough, shortness of breath, wheezing Cardiovascular: denies: chest pain, palpitations Endocrine: no symptoms reported Gastrointestinal: denies: abdominal pain, nausea, diarrhea Genitourinary: denies: urgency, dysuria, discharge Musculoskeletal: back pain. denies: joint swelling, arthralgia Skin: denies: rash, lesions Neurological: denies: headache, weakness, paresthesias Psychiatric: denies: anxiety, depression Hematological/Lymphatic: denies: easy bleeding, easy bruising ED Past Medical Hx - Past Medical History Hx Hypertension: No Hx Psychiatric Treatment: Yes (PTSD, BIPOLAR, ADHD,anxiety) Hx Asthma: No Hx HIV: Yes (Last CD4 800's 07/19/2019) Additional medical history: ezcema/ STATES "WHATEVER THEY DX ME WITH". - Surgical History Past Surgical History?: Yes Hx Coronary Stent: No Additional Surgical History: D&C. breast implants. wisdom teeth removed. tubal ligation - Social History Smoking Status: Never Smoker Substance Use Type: None - Medications Home Medications: Home Medications Medication Instructions Recorded Confirmed Last Taken Type QUEtiapine [SEROquel] 200 mg PO QHS #14 tablet 01/04/19 08/04/20 Unknown Rx risperiDONE [RisperDAL] 0.5 mg PO BID #60 tablet 10/26/19 08/04/20 Unknown Rx Bictegrav/Emtricit/Tenofov Ala 1 tab PO DAILY 08/04/20 08/04/20 Unknown History [Biktarvy 50-200-25 mg (Nf)] Dextroamphetamine/Amphetamine 20 mg PO DAILY 08/04/20 08/04/20 Unknown History [Adderall Xr 20 mg Capsule] Fluconazole [Diflucan TAB] 100 mg PO QDAY #7 tablet 08/04/20 Unknown Rx Magnesium Oxide [Mag-Ox] 400 mg PO QDAY #30 tablet 08/04/20 Unknown Rx Nitrofurantoin [place]/M-Cryst 100 mg PO Q12HR #14 capsule 08/04/20 Unknown Rx [Macrobid CAP] Ondansetron [Zofran Odt] 4 mg PO Q8HR 08/04/20 08/04/20 Unknown History Valacyclovir HCl [Valacyclovir] 500 mg PO DAILY 08/04/20 08/04/20 Unknown History cefUROXime [Ceftin] 250 mg PO Q12H #14 tablet 08/12/20 Unknown Rx clonazePAM [ Klonopin] 0.5 mg PO DAILY PRN #15 tab 08/12/20 Unknown Rx risperiDONE [RisperDAL] 0.25 mg PO BID #60 tab 08/12/20 Unknown Rx Moxifloxacin 0.5% 1 drops OP Q8H 7 Days #1 bottle 08/13/20 Unknown Rx Fluticasone [Flonase] 1 spray NS QDAY #1 bottle 08/16/20 Unknown Rx Omeprazole 40 mg PO DAILY #30 capsule. 08/16/20 Unknown Rx dexAMETHasone [Decadron] 4 mg PO HS #120 udc 08/16/20 Unknown Rx Ibuprofen [Motrin 800 MG tab] 800 mg PO Q8HR PRN #30 tablet 09/04/20 Unknown Rx Erythromycin [Erythromycin Ophth 1 applic OS BID #1 tube 10/05/20 Unknown Rx Oint] Azithromycin [Zithromax Z-MERT] 250 mg PO DAILY #6 tablet 02/03/21 Unknown Rx Benzonatate [Tessalon Perles] 100 mg PO Q8HR #30 capsule 02/03/21 Unknown Rx Fluticasone [Flonase] 1 spray NS QDAY #1 bottle 02/03/21 Unknown Rx Ibuprofen [Motrin] 600 mg PO Q8H PRN #24 tablet 02/03/21 Unknown Rx Ibuprofen [Motrin 600 MG tab] 600 mg PO Q8H PRN #20 03/07/21 Unknown Rx Albuterol Sulfate [Proair 90 mcg IH Q4HR PRN #2 aer.pow.ba 07/20/21 Unknown Rx Respiclick] Mineral Oil/Petrolatum,White 7 gm OP PRN PRN #1 oint...g. 07/20/21 Unknown Rx [Refresh Lacri-Lube Ointment] Albuterol Mdi (or & Nicu Only) 2 puff IH QID PRN #8.5 gram 07/22/21 Unknown Rx [ProAir HFA Inhaler] Cetirizine HCl [Zyrtec 10mg tab] 10 mg PO DAILY #30 tablet 07/22/21 Unknown Rx Fluconazole [Diflucan TAB] 200 mg PO QDAY #1 tablet 07/22/21 Unknown Rx Olopatadine HCl [Patanol 0.1%] 1 drop OP BID #5 ml 07/22/21 Unknown Rx Gentamicin 0.3% Ophth Soln 1 drops OP Q4H #5 ml 08/19/21 Unknown Rx Ibuprofen [Motrin 800 MG tab] 800 mg PO Q8HR PRN #30 tablet 08/27/21 Unknown Rx metroNIDAZOLE [Flagyl] 500 mg PO BID 7 Days #14 tab 08/27/21 Unknown Rx ED Physical Exam - General Limitations: No Limitations General appearance: alert, in no apparent distress - Head Head exam: Present: atraumatic, normocephalic - Eye Eye exam: Present: normal appearance - ENT ENT exam: Present: mucous membranes moist - Neck Neck exam: Present: normal inspection - Respiratory Respiratory exam: Present: normal lung sounds bilaterally. Absent: respiratory distress - Cardiovascular Cardiovascular Exam: Present: regular rate, normal rhythm. Absent: systolic m urmur, diastolic murmur, rubs, gallop - GI/Abdominal GI/Abdominal exam: Present: soft, normal bowel sounds - Extremities Exam Extremities exam: Present: normal inspection - Back Exam Back exam: Present: tenderness, muscle spasm, paraspinal tenderness. Absent: normal inspection, full ROM, vertebral tenderness, rash noted - Expanded Back Exam Expanded Back exam: Absent: saddle anesthesia 1 - Tender - Neurological Exam Neurological exam: Present: alert, oriented X3, reflexes normal, other (Unable to complete straight leg raise.) - Psychiatric Psychiatric exam: Present: normal affect, normal mood - Skin Skin exam: Present: warm, dry, intact, normal color. Absent: rash ED Course Vital Signs 08/31/21 08/31/21 14:42 14:44 Temperature 98.8 F Pulse Rate 88 Respiratory 18 Rate Blood Pressure 107/55 O2 Sat by Pulse 100 Oximetry ED Medical Decision Making - Medical Decision Making We discussed treatment options. I do not feel that she will benefit or require any imaging. I did offer her some injections, but she does not like shots. I will give her a dose of Naprosyn and Robaxin and send her home with prescriptions. Critical care attestation.: If time is entered above; I have spent that time in minutes in the direct care of this critically ill patient, excluding procedure time. ED Disposition Clinical Impression: Acute lumbosacral myofascial strain Disposition: HOME / SELF CARE / HOMELESS Is pt being admited?: No Does the pt Need Aspirin: No Instructions: Lumbosacral Strain
== END 2021-08-31 16:32 | disposition home or self-care (01) ==
LOC: ED 14:37
DX: S39.012A Strain of muscle, fascia and tendon of lower back, initial encounter (principal); F31.9 Bipolar disorder, unspecified; F41.9 Anxiety disorder, unspecified; Z88.2 Allergy status to sulfonamides; Z88.8 Allergy status to other drugs, medicaments and biological substances; Z79.899 Other long term (current) drug therapy; X50.1XXA Overexertion from prolonged static or awkward postures, initial encounter; Y93.89 Activity, other specified; Y92.89 Other specified places as the place of occurrence of the external cause; Y99.8 Other external cause status
CPT/HCPCS: 99282

== ENCOUNTER 2021-10-08 22:27 | Emergency (ER) | payer MEDICAID ==
--- NOTE | 2021-10-09 01:58 | Emergency Department Report ---
ED General Adult HPI - General Chief complaint: Eye Problems Stated complaint: DRY EYES/ITCHY Source: patient Mode of arrival: Ambulatory Limitations: No Limitations - History of Present Illness Initial comments: Patient is a 41-year-old -[place] female with a history of PTSD, bipolar disorder, anxiety and depression and ADHD as well as HIV who presented to the ED with complaint of acute onset persistent itchy eyes, nasal and sinus congestion, sore throat and shortness of breath for the last 12 hours. Patient states that she believes that she needs an inhaler. Patient denies traumatic injury, dizziness, syncope, fever, chills, chest pain, abdominal pain, nausea and vomiting, traumatic injury or vision changes. MD Complaint: itchy eyes, sore throat, shortness of breath -: Sudden, hour(s) (12) Location: face, mouth, chest Radiation: non-radiation Severity scale (0 -10): 2 Quality: dull Consistency: constant Improves with: none Worsens with: none Associated Symptoms: denies other symptoms, shortness of breath. denies: confusion, chest pain, cough, diaphoresis, fever/chills, headaches, loss of appetite, malaise, nausea/vomiting, rash, seizure, syncope, weakness Treatments Prior to Arrival: none - Related Data Home Medications Medication Instructions Recorded Confirmed Last Taken Bictegrav/Emtricit/Tenofov Ala 1 tab PO DAILY 08/04/20 08/04/20 Unknown [Biktarvy 50-200-25 mg (Nf)] Dextroamphetamine/Amphetamine 20 mg PO DAILY 08/04/20 08/04/20 Unknown [Adderall Xr 20 mg Capsule] Ondansetron [Zofran Odt] 4 mg PO Q8HR 08/04/20 08/04/20 Unknown Valacyclovir HCl [Valacyclovir] 500 mg PO DAILY 08/04/20 08/04/20 Unknown Previous Rx's Medication Instructions Recorded Last Taken Type QUEtiapine [SEROquel] 200 mg PO QHS #14 tablet 01/04/19 Unknown Rx risperiDONE [RisperDAL] 0.5 mg PO BID #60 tablet 10/26/19 Unknown Rx Fluconazole [Diflucan TAB] 100 mg PO QDAY #7 tablet 08/04/20 Unknown Rx Magnesium Oxide [Mag-Ox] 400 mg PO QDAY #30 tablet 08/04/20 Unknown Rx Nitrofurantoin [place]/M-Cryst 100 mg PO Q12HR #14 capsule 08/04/20 Unknown Rx [Macrobid CAP] cefUROXime [Ceftin] 250 mg PO Q12H #14 tablet 08/12/20 Unknown Rx clonazePAM [ Klonopin] 0.5 mg PO DAILY PRN #15 tab 08/12/20 Unknown Rx risperiDONE [RisperDAL] 0.25 mg PO BID #60 tab 08/12/20 Unknown Rx Moxifloxacin 0.5% 1 drops OP Q8H 7 Days #1 bottle 08/13/20 Unknown Rx Fluticasone [Flonase] 1 spray NS QDAY #1 bottle 08/16/20 Unknown Rx Omeprazole 40 mg PO DAILY #30 capsule. 08/16/20 Unknown Rx dexAMETHasone [Decadron] 4 mg PO HS #120 udc 08/16/20 Unknown Rx Ibuprofen [Motrin 800 MG tab] 800 mg PO Q8HR PRN #30 tablet 09/04/20 Unknown Rx Erythromycin [Erythromycin Ophth 1 applic OS BID #1 tube 10/05/20 Unknown Rx Oint] Azithromycin [Zithromax Z-MERT] 250 mg PO DAILY #6 tablet 02/03/21 Unknown Rx Benzonatate [Tessalon Perles] 100 mg PO Q8HR #30 capsule 02/03/21 Unknown Rx Fluticasone [Flonase] 1 spray NS QDAY #1 bottle 02/03/21 Unknown Rx Ibuprofen [Motrin] 600 mg PO Q8H PRN #24 tablet 02/03/21 Unknown Rx Ibuprofen [Motrin 600 MG tab] 600 mg PO Q8H PRN #20 03/07/21 Unknown Rx Mineral Oil/Petrolatum,White 7 gm OP PRN PRN #1 oint...g. 07/20/21 Unknown Rx [Refresh Lacri-Lube Ointment] Albuterol Mdi (or & Nicu Only) 2 puff IH QID PRN #8.5 gram 07/22/21 Unknown Rx [ProAir HFA Inhaler] Cetirizine HCl [Zyrtec 10mg tab] 10 mg PO DAILY #30 tablet 07/22/21 Unknown Rx Fluconazole [Diflucan TAB] 200 mg PO QDAY #1 tablet 07/22/21 Unknown Rx Olopatadine HCl [Patanol 0.1%] 1 drop OP BID #5 ml 07/22/21 Unknown Rx Gentamicin 0.3% Ophth Soln 1 drops OP Q4H #5 ml 08/19/21 Unknown Rx Ibuprofen [Motrin 800 MG tab] 800 mg PO Q8HR PRN #30 tablet 08/27/21 Unknown Rx metroNIDAZOLE [Flagyl] 500 mg PO BID 7 Days #14 tab 08/27/21 Unknown Rx Etodolac [Lodine] 400 mg PO BID #20 tablet 08/31/21 Unknown Rx Lidocaine [Lidoderm] 1 each TP BID #1 box 08/31/21 Unknown Rx Albuterol Sulfate [Proair 90 mcg IH Q4HR PRN #2 aer.pow.ba 10/09/21 Unknown Rx Respiclick] Fexofenadine/Pseudoephedrine 1 each PO DAILY #30 tab.er.24h 10/09/21 Unknown Rx [Danii-D 24 Hour Tablet] Fluticasone [Flonase] 1 spray NS QDAY #1 bottle 10/09/21 Unknown Rx Olopatadine HCl [Patanol 0.1%] 1 drop OP BID #5 ml 10/09/21 Unknown Rx hydrOXYzine PAMOATE [Vistaril] 50 mg PO Q6HR PRN #20 capsule 10/09/21 Unknown Rx Allergies Allergy/AdvReac Type Severity Reaction Status Date / Time Sulfa (Sulfonamide Allergy Swelling Verified 08/31/21 14:42 Antibiotics) sulfamethoxazole Allergy Swelling Verified 08/31/21 14:42 [From Bactrim] trimethoprim [From Bactrim] Allergy Swelling Verified 08/31/21 14:42 ziprasidone [From Geodon] Allergy Unknown Verified 08/31/21 14:42 ED Review of Systems ROS: Stated complaint: DRY EYES/ITCHY Other details as noted in HPI Constitutional: denies: chills, fever Eyes: other (Itchy eyes e). denies: eye discharge, vision change ENT: throat pain. denies: ear pain Respiratory: shortness of breath. denies: cough, wheezing Cardiovascular: denies: chest pain, palpitations Endocrine: no symptoms reported Gastrointestinal: denies: abdominal pain, nausea, vomiting, diarrhea Genitourinary: denies: urgency, dysuria, discharge Musculoskeletal: denies: back pain, joint swelling, arthralgia Skin: denies: rash, lesions Neurological: denies: headache, weakness, paresthesias Psychiatric: denies: anxiety, depression Hematological/Lymphatic: denies: easy bleeding, easy bruising ED Past Medical Hx - Past Medical History Hx Hypertension: No Hx Psychiatric Treatment: Yes (PTSD, BIPOLAR, ADHD,anxiety) Hx Asthma: No Hx HIV: Yes (Last CD4 800's 07/19/2019) Additional medical history: ezcema/ STATES "WHATEVER THEY DX ME WITH". - Surgical History Hx Coronary Stent: No Additional Surgical History: D&C. breast implants. wisdom teeth removed. tubal ligation - Social History Smoking Status: Never Smoker Substance Use Type: None - Medications Home Medications: Home Medications Medication Instructions Recorded Confirmed Last Taken Type QUEtiapine [SEROquel] 200 mg PO QHS #14 tablet 01/04/19 08/04/20 Unknown Rx risperiDONE [RisperDAL] 0.5 mg PO BID #60 tablet 10/26/19 08/04/20 Unknown Rx Bictegrav/Emtricit/Tenofov Ala 1 tab PO DAILY 08/04/20 08/04/20 Unknown History [Biktarvy 50-200-25 mg (Nf)] Dextroamphetamine/Amphetamine 20 mg PO DAILY 08/04/20 08/04/20 Unknown History [Adderall Xr 20 mg Capsule] Fluconazole [Diflucan TAB] 100 mg PO QDAY #7 tablet 08/04/20 Unknown Rx Magnesium Oxide [Mag-Ox] 400 mg PO QDAY #30 tablet 08/04/20 Unknown Rx Nitrofurantoin [place]/M-Cryst 100 mg PO Q12HR #14 capsule 08/04/20 Unknown Rx [Macrobid CAP] Ondansetron [Zofran Odt] 4 mg PO Q8HR 08/04/20 08/04/20 Unknown History Valacyclovir HCl [Valacyclovir] 500 mg PO DAILY 08/04/20 08/04/20 Unknown History cefUROXime [Ceftin] 250 mg PO Q12H #14 tablet 08/12/20 Unknown Rx clonazePAM [ Klonopin] 0.5 mg PO DAILY PRN #15 tab 08/12/20 Unknown Rx risperiDONE [RisperDAL] 0.25 mg PO BID #60 tab 08/12/20 Unknown Rx Moxifloxacin 0.5% 1 drops OP Q8H 7 Days #1 bottle 08/13/20 Unknown Rx Fluticasone [Flonase] 1 spray NS QDAY #1 bottle 08/16/20 Unknown Rx Omeprazole 40 mg PO DAILY #30 capsule. 08/16/20 Unknown Rx dexAMETHasone [Decadron] 4 mg PO HS #120 udc 08/16/20 Unknown Rx Ibuprofen [Motrin 800 MG tab] 800 mg PO Q8HR PRN #30 tablet 09/04/20 Unknown Rx Erythromycin [Erythromycin Ophth 1 applic OS BID #1 tube 10/05/20 Unknown Rx Oint] Azithromycin [Zithromax Z-MERT] 250 mg PO DAILY #6 tablet 02/03/21 Unknown Rx Benzonatate [Tessalon Perles] 100 mg PO Q8HR #30 capsule 02/03/21 Unknown Rx Fluticasone [Flonase] 1 spray NS QDAY #1 bottle 02/03/21 Unknown Rx Ibuprofen [Motrin] 600 mg PO Q8H PRN #24 tablet 02/03/21 Unknown Rx Ibuprofen [Motrin 600 MG tab] 600 mg PO Q8H PRN #20 03/07/21 Unknown Rx Mineral Oil/Petrolatum,White 7 gm OP PRN PRN #1 oint...g. 07/20/21 Unknown Rx [Refresh Lacri-Lube Ointment] Albuterol Mdi (or & Nicu Only) 2 puff IH QID PRN #8.5 gram 07/22/21 Unknown Rx [ProAir HFA Inhaler] Cetirizine HCl [Zyrtec 10mg tab] 10 mg PO DAILY #30 tablet 07/22/21 Unknown Rx Fluconazole [Diflucan TAB] 200 mg PO QDAY #1 tablet 07/22/21 Unknown Rx Olopatadine HCl [Patanol 0.1%] 1 drop OP BID #5 ml 07/22/21 Unknown Rx Gentamicin 0.3% Ophth Soln 1 drops OP Q4H #5 ml 08/19/21 Unknown Rx Ibuprofen [Motrin 800 MG tab] 800 mg PO Q8HR PRN #30 tablet 08/27/21 Unknown Rx metroNIDAZOLE [Flagyl] 500 mg PO BID 7 Days #14 tab 08/27/21 Unknown Rx Etodolac [Lodine] 400 mg PO BID #20 tablet 08/31/21 Unknown Rx Lidocaine [Lidoderm] 1 each TP BID #1 box 08/31/21 Unknown Rx Albuterol Sulfate [Proair 90 mcg IH Q4HR PRN #2 aer.pow.ba 10/09/21 Unknown Rx Respiclick] Fexofenadine/Pseudoephedrine 1 each PO DAILY #30 tab.er.24h 10/09/21 Unknown Rx [Danii-D 24 Hour Tablet] Fluticasone [Flonase] 1 spray NS QDAY #1 bottle 10/09/21 Unknown Rx Olopatadine HCl [Patanol 0.1%] 1 drop OP BID #5 ml 10/09/21 Unknown Rx hydrOXYzine PAMOATE [Vistaril] 50 mg PO Q6HR PRN #20 capsule 10/09/21 Unknown Rx ED Physical Exam - General Limitations: No Limitations General appearance: alert, in no apparent distress - Head Head exam: Present: atraumatic, normocephalic, normal inspection - Eye Eye exam: Present: normal appearance, PERRL, EOMI Pupils: Present: normal accommodation - ENT ENT exam: Present: normal exam, normal orophraynx, mucous membranes moist, TM's normal bilaterally, normal external ear exam - Neck Neck exam: Present: normal inspection, full ROM. Absent: tenderness - Respiratory Respiratory exam: Present: normal lung sounds bilaterally. Absent: respiratory distress, wheezes, rales, rhonchi, chest wall tenderness, accessory muscle use, decreased breath sounds - Cardiovascular Cardiovascular Exam: Present: normal rhythm, tachycardia, normal heart sounds. Absent: systolic murmur, diastolic murmur, rubs, gallop - GI/Abdominal GI/Abdominal exam: Present: soft, normal bowel sounds. Absent: tenderness, guarding, rebound, hypoactive bowel sounds, mass - Extremities Exam Extremities exam: Present: normal inspection, full ROM, normal capillary refill - Back Exam Back exam: Present: normal inspection, full ROM. Absent: tenderness, CVA tenderness (R), CVA tenderness (L), muscle spasm, paraspinal tenderness - Neurological Exam Neurological exam: Present: alert, oriented X3, CN II-XII intact, normal gait, reflexes normal - Psychiatric Psychiatric exam: Present: normal affect, normal mood - Skin Skin exam: Present: warm, dry, intact, normal color. Absent: rash ED Course Vital Signs 10/08/21 22:31 Temperature 98.2 F Pulse Rate 104 H Respiratory 16 Rate Blood Pressure 154/108 [Left] O2 Sat by Pulse 100 Oximetry ED Medical Decision Making - Medical Decision Making This is a 41-year-old -[place] female with a history of PTSD, bipolar disorder, anxiety and depression and ADHD as well as HIV who presented to the ED with complaint of acute onset persistent itchy eyes, nasal and sinus congestion, sore throat and shortness of breath for the last 12 hours. Patient states that she believes that she needs an inhaler. In the ED, patient is alert and oriented x3 and is not in any distress but anxious during the physical exam. Patient usually presents to the ED at least weekly with similar complaints but has significant anxiety. Patient also has long artificial eyelashes pasted on eyelids prominently which may be contributing to her itchy eyes as well. Patient was therefore discharged home on medications and advised to follow-up with her primary care physician in 3 to 5 days for reevaluation or return to the ED immediately if symptoms get worse. - Differential Diagnosis Allergic conjunctivitis; allergic pharyngitis; anxiety Critical care attestation.: If time is entered above; I have spent that time in minutes in the direct care of this critically ill patient, excluding procedure time. ED Disposition Clinical Impression: Anxiety as acute reaction to exceptional stress, Allergic conjunctivitis of both eyes and rhinitis, Allergic pharyngitis Disposition: 01 HOME / SELF CARE / HOMELESS Is pt being admited?: No Does the pt Need Aspirin: No Condition: Stable Instructions: Allergic Conjunctivitis, Adult, [id number], Allergic Rhinitis, Adult, [id number], Generalized Anxiety Disorder, Adult, Pharyngitis, [id number], How to Use Eye Drops and Eye Ointments Additional Instructions: All your symptoms are likely due to allergic conjunctivitis or allergic rhinitis versus allergic pharyngitis. All the symptoms worsen you anxiety causing to have chest tightness. Physical exam is unremarkable throughout. Therefore take medications as advised, drink plenty of fluids and follow-up with your primary care physician in 3 to 5 days for reevaluation. Return to the ED immediately if symptoms get worse. Prescriptions: Fexofenadine/Pseudoephedrine [Danii-D 24 Hour Tablet] 1 each PO DAILY #30 tab.er.24h Fluticasone [Flonase] 1 spray NS QDAY #1 bottle Olopatadine HCl [Patanol 0.1%] 1 drop OP BID #5 ml Albuterol Sulfate [Proair Respiclick] 90 mcg IH Q4HR PRN #2 aer.pow.ba PRN Reason: Wheezing hydrOXYzine PAMOATE [Vistaril] 50 mg PO Q6HR PRN #20 capsule PRN Reason: Anxiety Referrals: [facility] [Provider Group] - 3-5 Days Time of Disposition: 01:59 Print Language: HONDUR[place]
[2021-10-09] MEDS ORDERED: hydrOXYzine PAMOATE 25 MG CAP PO ONE (02:03)
[2021-10-09 03:36] VITALS: BP 160/85
== END 2021-10-09 03:00 | disposition home or self-care (01) ==
LOC: ED 22:27
DX: F43.0 Acute stress reaction (principal); H10.13 Acute atopic conjunctivitis, bilateral; J02.9 Acute pharyngitis, unspecified; Z88.2 Allergy status to sulfonamides; Z88.8 Allergy status to other drugs, medicaments and biological substances
CPT/HCPCS: 99282; Q0177; J3490

== ENCOUNTER 2021-10-25 12:40 | Emergency (ER) | payer MEDICAID ==
--- NOTE | 2021-10-25 15:48 | Emergency Department Report ---
- General Chief Complaint: Upper Respiratory Infection Stated Complaint: "BRONCHITIS" Time Seen by Provider: 10/25/21 15:22 Source: patient Mode of arrival: Ambulatory Limitations: No Limitations - History of Present Illness Initial Comments: pt is a 41 yo female who presents to the ED with c/o dry cough that began two days ago. she has associated itching eyes, watering eyes, congestion, SOB. she denies any fever, v/d, cp, sore throat. PMHx bronchitis, HIV. allergy to sulfa. - Related Data Home Medications Medication Instructions Recorded Confirmed Last Taken Bictegrav/Emtricit/Tenofov Ala 1 tab PO DAILY 08/04/20 08/04/20 Unknown [Biktarvy 50-200-25 mg (Nf)] Dextroamphetamine/Amphetamine 20 mg PO DAILY 08/04/20 08/04/20 Unknown [Adderall Xr 20 mg Capsule] Ondansetron [Zofran Odt] 4 mg PO Q8HR 08/04/20 08/04/20 Unknown Valacyclovir HCl [Valacyclovir] 500 mg PO DAILY 08/04/20 08/04/20 Unknown Previous Rx's Medication Instructions Recorded Last Taken Type QUEtiapine [SEROquel] 200 mg PO QHS #14 tablet 01/04/19 Unknown Rx risperiDONE [RisperDAL] 0.5 mg PO BID #60 tablet 10/26/19 Unknown Rx Fluconazole [Diflucan TAB] 100 mg PO QDAY #7 tablet 08/04/20 Unknown Rx Magnesium Oxide [Mag-Ox] 400 mg PO QDAY #30 tablet 08/04/[address] [place]/M-Cryst 100 mg PO Q12HR #14 capsule 08/04/20 Unknown Rx [Macrobid CAP] cefUROXime [Ceftin] 250 mg PO Q12H #14 tablet 08/12/20 Unknown Rx clonazePAM [ Klonopin] 0.5 mg PO DAILY PRN #15 tab 08/12/20 Unknown Rx risperiDONE [RisperDAL] 0.25 mg PO BID #60 tab 08/12/20 Unknown Rx Moxifloxacin 0.5% 1 drops OP Q8H 7 Days #1 bottle 08/13/20 Unknown Rx Fluticasone [Flonase] 1 spray NS QDAY #1 bottle 08/16/20 Unknown Rx Omeprazole 40 mg PO DAILY #30 capsule. 08/16/20 Unknown Rx dexAMETHasone [Decadron] 4 mg PO HS #120 udc 08/16/20 Unknown Rx Ibuprofen [Motrin 800 MG tab] 800 mg PO Q8HR PRN #30 tablet 09/04/20 Unknown Rx Erythromycin [Erythromycin Ophth 1 applic OS BID #1 tube 10/05/20 Unknown Rx Oint] Azithromycin [Zithromax Z-MERT] 250 mg PO DAILY #6 tablet 02/03/21 Unknown Rx Benzonatate [Tessalon Perles] 100 mg PO Q8HR #30 capsule 02/03/21 Unknown Rx Fluticasone [Flonase] 1 spray NS QDAY #1 bottle 02/03/21 Unknown Rx Ibuprofen [Motrin] 600 mg PO Q8H PRN #24 tablet 02/03/21 Unknown Rx Ibuprofen [Motrin 600 MG tab] 600 mg PO Q8H PRN #20 03/07/21 Unknown Rx Mineral Oil/Petrolatum,White 7 gm OP PRN PRN #1 oint...g. 07/20/21 Unknown Rx [Refresh Lacri-Lube Ointment] Albuterol Mdi (or & Nicu Only) 2 puff IH QID PRN #8.5 gram 07/22/21 Unknown Rx [ProAir HFA Inhaler] Cetirizine HCl [Zyrtec 10mg tab] 10 mg PO DAILY #30 tablet 07/22/21 Unknown Rx Fluconazole [Diflucan TAB] 200 mg PO QDAY #1 tablet 07/22/21 Unknown Rx Olopatadine HCl [Patanol 0.1%] 1 drop OP BID #5 ml 07/22/21 Unknown Rx Gentamicin 0.3% Ophth Soln 1 drops OP Q4H #5 ml 08/19/21 Unknown Rx Ibuprofen [Motrin 800 MG tab] 800 mg PO Q8HR PRN #30 tablet 08/27/21 Unknown Rx metroNIDAZOLE [Flagyl] 500 mg PO BID 7 Days #14 tab 08/27/21 Unknown Rx Etodolac [Lodine] 400 mg PO BID #20 tablet 08/31/21 Unknown Rx Lidocaine [Lidoderm] 1 each TP BID #1 box 08/31/21 Unknown Rx Albuterol Sulfate [Proair 90 mcg IH Q4HR PRN #2 aer.pow.ba 10/09/21 Unknown Rx Respiclick] Fexofenadine/Pseudoephedrine 1 each PO DAILY #30 tab.er.24h 10/09/21 Unknown Rx [Danii-D 24 Hour Tablet] Fluticasone [Flonase] 1 spray NS QDAY #1 bottle 10/09/21 Unknown Rx Olopatadine HCl [Patanol 0.1%] 1 drop OP BID #5 ml 10/09/21 Unknown Rx hydrOXYzine PAMOATE [Vistaril] 50 mg PO Q6HR PRN #20 capsule 10/09/21 Unknown Rx Benzonatate [Tessalon Perles] 100 mg PO Q8HR PRN #12 cap 10/25/21 Unknown Rx Fluticasone [Flonase] 1 spray NS QDAY #1 bottle 10/25/21 Unknown Rx Loratadine 10 mg PO DAILY #30 tab 10/25/21 Unknown Rx guaiFENesin ER [Mucinex ER] 600 mg PO Q12H #14 tab 10/25/21 Unknown Rx Allergies Allergy/AdvReac Type Severity Reaction Status Date / Time Sulfa (Sulfonamide Allergy Swelling Verified 08/31/21 14:42 Antibiotics) sulfamethoxazole Allergy Swelling Verified 08/31/21 14:42 [From Bactrim] trimethoprim [From Bactrim] Allergy Swelling Verified 08/31/21 14:42 ziprasidone [From Geodon] Allergy Unknown Verified 08/31/21 14:42 ED Review of Systems ROS: Stated complaint: "BRONCHITIS" Other details as noted in HPI Comment: All other systems reviewed and negative ED Past Medical Hx - Past Medical History Hx Hypertension: No Hx Psychiatric Treatment: Yes (PTSD, BIPOLAR, ADHD,anxiety) Hx Asthma: No Hx HIV: Yes (Last CD4 800's 07/19/2019) Additional medical history: ezcema/ STATES "WHATEVER THEY DX ME WITH". - Surgical History Hx Coronary Stent: No Additional Surgical History: D&C. breast implants. wisdom teeth removed. tubal ligation - Social History Smoking Status: Never Smoker Substance Use Type: None - Medications Home Medications: Home Medications Medication Instructions Recorded Confirmed Last Taken Type QUEtiapine [SEROquel] 200 mg PO QHS #14 tablet 01/04/19 08/04/20 Unknown Rx risperiDONE [RisperDAL] 0.5 mg PO BID #60 tablet 10/26/19 08/04/20 Unknown Rx Bictegrav/Emtricit/Tenofov Ala 1 tab PO DAILY 08/04/20 08/04/20 Unknown History [Biktarvy 50-200-25 mg (Nf)] Dextroamphetamine/Amphetamine 20 mg PO DAILY 08/04/20 08/04/20 Unknown History [Adderall Xr 20 mg Capsule] Fluconazole [Diflucan TAB] 100 mg PO QDAY #7 tablet 08/04/20 Unknown Rx Magnesium Oxide [Mag-Ox] 400 mg PO QDAY #30 tablet 08/04/[address] [facility]/M-Cryst 100 mg PO Q12HR #14 capsule 08/04/20 Unknown Rx [Macrobid CAP] Ondansetron [Zofran Odt] 4 mg PO Q8HR 08/04/20 08/04/20 Unknown History Valacyclovir HCl [Valacyclovir] 500 mg PO DAILY 08/04/20 08/04/20 Unknown History cefUROXime [Ceftin] 250 mg PO Q12H #14 tablet 08/12/20 Unknown Rx clonazePAM [ Klonopin] 0.5 mg PO DAILY PRN #15 tab 08/12/20 Unknown Rx risperiDONE [RisperDAL] 0.25 mg PO BID #60 tab 08/12/20 Unknown Rx Moxifloxacin 0.5% 1 drops OP Q8H 7 Days #1 bottle 08/13/20 Unknown Rx Fluticasone [Flonase] 1 spray NS QDAY #1 bottle 08/16/20 Unknown Rx Omeprazole 40 mg PO DAILY #30 capsule. 08/16/20 Unknown Rx dexAMETHasone [Decadron] 4 mg PO HS #120 udc 08/16/20 Unknown Rx Ibuprofen [Motrin 800 MG tab] 800 mg PO Q8HR PRN #30 tablet 09/04/20 Unknown Rx Erythromycin [Erythromycin Ophth 1 applic OS BID #1 tube 10/05/20 Unknown Rx Oint] Azithromycin [Zithromax Z-MERT] 250 mg PO DAILY #6 tablet 02/03/21 Unknown Rx Benzonatate [Tessalon Perles] 100 mg PO Q8HR #30 capsule 02/03/21 Unknown Rx Fluticasone [Flonase] 1 spray NS QDAY #1 bottle 02/03/21 Unknown Rx Ibuprofen [Motrin] 600 mg PO Q8H PRN #24 tablet 02/03/21 Unknown Rx Ibuprofen [Motrin 600 MG tab] 600 mg PO Q8H PRN #20 03/07/21 Unknown Rx Mineral Oil/Petrolatum,White 7 gm OP PRN PRN #1 oint...g. 07/20/21 Unknown Rx [Refresh Lacri-Lube Ointment] Albuterol Mdi (or & Nicu Only) 2 puff IH QID PRN #8.5 gram 07/22/21 Unknown Rx [ProAir HFA Inhaler] Cetirizine HCl [Zyrtec 10mg tab] 10 mg PO DAILY #30 tablet 07/22/21 Unknown Rx Fluconazole [Diflucan TAB] 200 mg PO QDAY #1 tablet 07/22/21 Unknown Rx Olopatadine HCl [Patanol 0.1%] 1 drop OP BID #5 ml 07/22/21 Unknown Rx Gentamicin 0.3% Ophth Soln 1 drops OP Q4H #5 ml 08/19/21 Unknown Rx Ibuprofen [Motrin 800 MG tab] 800 mg PO Q8HR PRN #30 tablet 08/27/21 Unknown Rx metroNIDAZOLE [Flagyl] 500 mg PO BID 7 Days #14 tab 08/27/21 Unknown Rx Etodolac [Lodine] 400 mg PO BID #20 tablet 08/31/21 Unknown Rx Lidocaine [Lidoderm] 1 each TP BID #1 box 08/31/21 Unknown Rx Albuterol Sulfate [Proair 90 mcg IH Q4HR PRN #2 aer.pow.ba 10/09/21 Unknown Rx Respiclick] Fexofenadine/Pseudoephedrine 1 each PO DAILY #30 tab.er.24h 10/09/21 Unknown Rx [Danii-D 24 Hour Tablet] Fluticasone [Flonase] 1 spray NS QDAY #1 bottle 10/09/21 Unknown Rx Olopatadine HCl [Patanol 0.1%] 1 drop OP BID #5 ml 10/09/21 Unknown Rx hydrOXYzine PAMOATE [Vistaril] 50 mg PO Q6HR PRN #20 capsule 10/09/21 Unknown Rx Benzonatate [Tessalon Perles] 100 mg PO Q8HR PRN #12 cap 10/25/21 Unknown Rx Fluticasone [Flonase] 1 spray NS QDAY #1 bottle 10/25/21 Unknown Rx Loratadine 10 mg PO DAILY #30 tab 10/25/21 Unknown Rx guaiFENesin ER [Mucinex ER] 600 mg PO Q12H #14 tab 10/25/21 Unknown Rx ED Physical Exam - General Limitations: No Limitations General appearance: alert, in no apparent distress - Head Head exam: Present: atraumatic, normocephalic - Eye Eye exam: Present: normal appearance. Absent: conjunctival injection, periorbital swelling, periorbital tenderness - ENT ENT exam: Present: mucous membranes moist - Respiratory Respiratory exam: Present: normal lung sounds bilaterally. Absent: respiratory distress, wheezes, rales, rhonchi, stridor, chest wall tenderness, accessory muscle use, decreased breath sounds, prolonged expiratory - Cardiovascular Cardiovascular Exam: Present: regular rate, normal rhythm, normal heart sounds. Absent: systolic murmur, diastolic murmur, rubs, gallop - Neurological Exam Neurological exam: Present: alert, oriented X3 - Psychiatric Psychiatric exam: Present: normal affect, normal mood - Skin Skin exam: Present: warm, dry, intact ED Course Vital Signs 10/25/21 12:43 Temperature 98.2 F Pulse Rate 56 L Respiratory 18 Rate Blood Pressure 130/90 [Right] O2 Sat by Pulse 100 Oximetry ED Medical Decision Making - Radiology Data Radiology results: report reviewed Ordering Physician: COLLEEN VAN Date of Service: 10/25/21 Procedure(s): XR chest routine 2V Accession Number(s): [id number] cc: COLLEEN VAN Fluoro Time In Minutes: CHEST 2 VIEWS INDICATION: SOB, cough. COMPARISON: 07/20/2021. FINDINGS: Support devices: None. Heart: Within normal limits. Lungs/Pleura: No acute air space or interstitial disease. No significant pleural effusion. IMPRESSION: No acute findings. Signer Name: Moises Whitley MD Signed: 10/25/2021 3:48 PM Workstation Name: [id number] Transcribed By: ES Dictated By: Moises Whitley MD Electronically Authenticated By: Moises Whitley MD Signed Date/Time: 10/25/211547 DD/ 47 TD/TT: - Medical Decision Making pt is a 41 yo female who presents to the ED with c/o dry cough that began two days ago. she has associated itching eyes, watering eyes, congestion, SOB. she denies any fever, v/d, cp, sore throat. PMHx bronchitis, HIV. allergy to sulfa. VSS. breath sounds are clear bilaterally, no w/r/r. cxr: IMPRESSION: No acute findings. Symptoms likely related to URI versus allergies. Patient given prescription for medications. Discussed supportive care and symptomatic treatment with patient. Advised patient please take medication as prescribed. Increase your fluid intake. Follow-up with a primary care doctor for reexamination. Return to emergency room for any new or worsening symptoms. Recommend outpatient COVID-19 testing and if positive please self quarantine in accordance with the CDC guidelines. Critical care attestation.: If time is entered above; I have spent that time in minutes in the direct care of this critically ill patient, excluding procedure time. ED Disposition Clinical Impression: URI (upper respiratory infection) Qualifiers: URI type: unspecified URI Qualified Code(s): J06.9 - Acute upper respiratory infection, unspecified Disposition: 01 HOME / SELF CARE / HOMELESS Is pt being admited?: No Does the pt Need Aspirin: No Condition: Stable Instructions: Viral Respiratory Infection Additional Instructions: please take medication as prescribed. Increase your fluid intake. Follow-up with a primary care doctor for reexamination. Return to emergency room for any new or worsening symptoms. Recommend outpatient COVID-19 testing and if positive please self quarantine in accordance with the CDC guidelines. Prescriptions: Fluticasone [Flonase] 1 spray NS QDAY #1 bottle Loratadine 10 mg PO DAILY #30 tab guaiFENesin ER [Mucinex ER] 600 mg PO Q12H #14 tab Benzonatate [Tessalon Perles] 100 mg PO Q8HR PRN #12 cap PRN Reason: cough Referrals: ALLAN MCCARTY MD [Staff Physician] - 3-5 Days [facility] [Provider Group] - 3-5 Days Time of Disposition: 16:16 Print Language: AFGHAN
--- NOTE | 2021-10-25 15:53 | XRay Report ---
CHEST 2 VIEWS INDICATION: SOB, cough. COMPARISON: 07/20/2021. FINDINGS: Support devices: None. Heart: Within normal limits. Lungs/Pleura: No acute air space or interstitial disease. No significant pleural effusion. IMPRESSION: No acute findings. Signer Name: Moises Whitley MD Signed: 10/25/2021 3:48 PM Workstation Name: [id number]
[2021-10-25 17:03] VITALS: BP 161/102
== END 2021-10-25 17:06 | disposition home or self-care (01) ==
LOC: ED 12:40
DX: J06.9 Acute upper respiratory infection, unspecified (principal); Z88.2 Allergy status to sulfonamides
CPT/HCPCS: 71046; 99283

== ENCOUNTER 2021-10-27 21:57 | Emergency (ER) | payer MEDICAID ==
[2021-10-27 22:10] VITALS: BP 146/86
--- NOTE | 2021-10-28 04:08 | Emergency Department Report ---
ED General Adult HPI - General Chief complaint: Anxiety Stated complaint: I just do not feel well Time Seen by Provider: 10/28/21 03:59 Source: patient, RN notes reviewed, old records reviewed Mode of arrival: Ambulatory Limitations: No Limitations - History of Present Illness Initial comments: The patient was evaluated in the emergency department for symptoms described in the history of present illness. He/she was evaluated in the context of the global COVID-19 pandemic, which necessitated consideration that the patient might be at risk for infection with the virus that causes COVID-19. Institutional protocols and algorithms that pertain to the evaluation of patients at risk for COVID-19 are in a state of rapid change based on information released by regulatory bodies including the CDC and federal and state organizations. These policies and algorithms were followed during the patient's care in the emergency department. Please note that these policies, procedures and recommendations changed on a rapid basis. The patient is a 41-year-old female. I have evaluated this patient in the past. The patient presents to the ER today with a complaint of painless "I am just not feeling well." Patient denies headache, neck pain, chest pain, abdominal pain, shortness of breath. The patient endorses anxiety. The patient denies loss of taste and smell. The patient denies homicidality, suicidality, also denies overdose. Patient also complains of chronically itchy eye. The patient is also asking to speak to a psychotherapist social worker, "because I do not feel safe." However, the patient states that she has not been physically threatened or harmed, and she does not want to file a police report. Furthermore, the patient does not have any interest in going to a homeless nursing home. However, she still would like to speak to a psychotherapist social worker. -: Gradual Consistency: intermittent Improves with: none Worsens with: none - Related Data Home Medications Medication Instructions Recorded Confirmed Last Taken Bictegrav/Emtricit/Tenofov Ala 1 tab PO DAILY 08/04/20 08/04/20 Unknown [Biktarvy 50-200-25 mg (Nf)] Ondansetron [Zofran Odt] 4 mg PO Q8HR 08/04/20 08/04/20 Unknown Valacyclovir HCl [Valacyclovir] 500 mg PO DAILY 08/04/20 08/04/20 Unknown Previous Rx's Medication Instructions Recorded Last Taken Type QUEtiapine [SEROquel] 200 mg PO QHS #14 tablet 01/04/19 Unknown Rx risperiDONE [RisperDAL] 0.5 mg PO BID #60 tablet 10/26/19 Unknown Rx Fluconazole [Diflucan TAB] 100 mg PO QDAY #7 tablet 08/04/20 Unknown Rx clonazePAM [ Klonopin] 0.5 mg PO DAILY PRN #15 tab 08/12/20 Unknown Rx risperiDONE [RisperDAL] 0.25 mg PO BID #60 tab 08/12/20 Unknown Rx Omeprazole 40 mg PO DAILY #30 capsule.dr 08/16/20 Unknown Rx Benzonatate [Tessalon Perles] 100 mg PO Q8HR #30 capsule 02/03/21 Unknown Rx Fluticasone [Flonase] 1 spray NS QDAY #1 bottle 02/03/21 Unknown Rx Albuterol Mdi (or & Nicu Only) 2 puff IH QID PRN #8.5 gram 07/22/21 Unknown Rx [ProAir HFA Inhaler] Cetirizine HCl [Zyrtec 10mg tab] 10 mg PO DAILY #30 tablet 07/22/21 Unknown Rx Fluconazole [Diflucan TAB] 200 mg PO QDAY #1 tablet 07/22/21 Unknown Rx Olopatadine HCl [Patanol 0.1%] 1 drop OP BID #5 ml 07/22/21 Unknown Rx metroNIDAZOLE [Flagyl] 500 mg PO BID 7 Days #14 tab 08/27/21 Unknown Rx Etodolac [Lodine] 400 mg PO BID #20 tablet 08/31/21 Unknown Rx Lidocaine [Lidoderm] 1 each TP BID #1 box 08/31/21 Unknown Rx Albuterol Sulfate [Proair 90 mcg IH Q4HR PRN #2 aer.pow.ba 10/09/21 Unknown Rx Respiclick] Fluticasone [Flonase] 1 spray NS QDAY #1 bottle 10/09/21 Unknown Rx Olopatadine HCl [Patanol 0.1%] 1 drop OP BID #5 ml 10/09/21 Unknown Rx Benzonatate [Tessalon Perles] 100 mg PO Q8HR PRN #12 cap 10/25/21 Unknown Rx Fluticasone [Flonase] 1 spray NS QDAY #1 bottle 10/25/21 Unknown Rx Loratadine 10 mg PO DAILY #30 tab 10/25/21 Unknown Rx guaiFENesin ER [Mucinex ER] 600 mg PO Q12H #14 tab 10/25/21 Unknown Rx Mineral Oil/Petrolatum,White 7 gm OP PRN PRN #1 oint...g. 10/28/21 Unknown Rx [Refresh Lacri-Lube Ointment] Allergies Allergy/AdvReac Type Severity Reaction Status Date / Time Sulfa (Sulfonamide Allergy Swelling Verified 10/27/21 22:10 Antibiotics) sulfamethoxazole Allergy Swelling Verified 10/27/21 22:10 [From Bactrim] trimethoprim [From Bactrim] Allergy Swelling Verified 10/27/21 22:10 ziprasidone [From Geodon] Allergy Unknown Verified 10/27/21 22:10 ED Review of Systems ROS: Stated complaint: ANXIETY Other details as noted in HPI Constitutional: denies: fever Eyes: other (Ocular pruritus). denies: eye pain, eye discharge, vision change ENT: denies: epistaxis Respiratory: denies: orthopnea Cardiovascular: denies: chest pain Gastrointestinal: denies: abdominal pain Neurological: weakness Psychiatric: anxiety. denies: homicidal thoughts, suicidal thoughts ED Past Medical Hx - Past Medical History Hx Hypertension: No Hx Psychiatric Treatment: Yes (PTSD, BIPOLAR, ADHD,anxiety) Hx Asthma: No Hx HIV: Yes (Last CD4 800's 07/19/2019) Additional medical history: ezcema/ STATES "WHATEVER THEY DX ME WITH". - Surgical History Hx Coronary Stent: No Additional Surgical History: D&C. breast implants. wisdom teeth removed. tubal ligation - Social History Smoking Status: Never Smoker Substance Use Type: None - Medications Home Medications: Home Medications Medication Instructions Recorded Confirmed Last Taken Type QUEtiapine [SEROquel] 200 mg PO QHS #14 tablet 01/04/19 08/04/20 Unknown Rx risperiDONE [RisperDAL] 0.5 mg PO BID #60 tablet 10/26/19 08/04/20 Unknown Rx Bictegrav/Emtricit/Tenofov Ala 1 tab PO DAILY 08/04/20 08/04/20 Unknown History [Biktarvy 50-200-25 mg (Nf)] Fluconazole [Diflucan TAB] 100 mg PO QDAY #7 tablet 08/04/20 Unknown Rx Ondansetron [Zofran Odt] 4 mg PO Q8HR 08/04/20 08/04/20 Unknown History Valacyclovir HCl [Valacyclovir] 500 mg PO DAILY 08/04/20 08/04/20 Unknown History clonazePAM [ Klonopin] 0.5 mg PO DAILY PRN #15 tab 08/12/20 Unknown Rx risperiDONE [RisperDAL] 0.25 mg PO BID #60 tab 08/12/20 Unknown Rx Omeprazole 40 mg PO DAILY #30 capsule. 08/16/20 Unknown Rx Benzonatate [Tessalon Perles] 100 mg PO Q8HR #30 capsule 02/03/21 Unknown Rx Fluticasone [Flonase] 1 spray NS QDAY #1 bottle 02/03/21 Unknown Rx Albuterol Mdi (or & Nicu Only) 2 puff IH QID PRN #8.5 gram 07/22/21 Unknown Rx [ProAir HFA Inhaler] Cetirizine HCl [Zyrtec 10mg tab] 10 mg PO DAILY #30 tablet 07/22/21 Unknown Rx Fluconazole [Diflucan TAB] 200 mg PO QDAY #1 tablet 07/22/21 Unknown Rx Olopatadine HCl [Patanol 0.1%] 1 drop OP BID #5 ml 07/22/21 Unknown Rx metroNIDAZOLE [Flagyl] 500 mg PO BID 7 Days #14 tab 08/27/21 Unknown Rx Etodolac [Lodine] 400 mg PO BID #20 tablet 08/31/21 Unknown Rx Lidocaine [Lidoderm] 1 each TP BID #1 box 08/31/21 Unknown Rx Albuterol Sulfate [Proair 90 mcg IH Q4HR PRN #2 aer.pow.ba 10/09/21 Unknown Rx Respiclick] Fluticasone [Flonase] 1 spray NS QDAY #1 bottle 10/09/21 Unknown Rx Olopatadine HCl [Patanol 0.1%] 1 drop OP BID #5 ml 10/09/21 Unknown Rx Benzonatate [Tessalon Perles] 100 mg PO Q8HR PRN #12 cap 10/25/21 Unknown Rx Fluticasone [Flonase] 1 spray NS QDAY #1 bottle 10/25/21 Unknown Rx Loratadine 10 mg PO DAILY #30 tab 10/25/21 Unknown Rx guaiFENesin ER [Mucinex ER] 600 mg PO Q12H #14 tab 10/25/21 Unknown Rx Mineral Oil/Petrolatum,White 7 gm OP PRN PRN #1 oint...g. 10/28/21 Unknown Rx [Refresh Lacri-Lube Ointment] ED Physical Exam - General Limitations: No Limitations General appearance: alert, anxious, obese - Head Head exam: Present: atraumatic, normocephalic - Eye Eye exam: Present: normal appearance, PERRL, EOMI. Absent: conjunctival injection, periorbital tenderness - ENT ENT exam: Present: normal exam, normal orophraynx, mucous membranes moist, normal external ear exam - Neck Neck exam: Present: normal inspection, full ROM. Absent: tenderness, m eningismus - Respiratory Respiratory exam: Present: normal lung sounds bilaterally. Absent: respiratory distress, wheezes, rales, rhonchi, stridor, decreased breath sounds - Cardiovascular Cardiovascular Exam: Present: normal rhythm, tachycardia, normal heart sounds. Absent: bradycardia, irregular rhythm, systolic murmur, diastolic murmur, rubs, gallop - GI/Abdominal GI/Abdominal exam: Present: soft. Absent: distended, tenderness, guarding, rebound, rigid, pulsatile mass - Extremities Exam Extremities exam: Present: normal inspection, full ROM, other (2+ pulses noted in the bilateral upper and lower extremities. There is no palpable cord. negative Homans sign. Muscular compartments are soft. The pelvis is stable.). Absent: pedal edema, calf tenderness - Back Exam Back exam: Present: normal inspection, full ROM. Absent: tenderness, CVA tenderness (R), CVA tenderness (L), paraspinal tenderness, vertebral tenderness - Neurological Exam Neurological exam: Present: alert, oriented X3, other (No facial droop. Tongue midline. Extraocular movements intact bilaterally. Facial sensation intact to light touch in V1, V2, V3 distribution bilaterally. 5 and a 5 strength in 4 extremities. Sensation intact to light touch in 4 extremities.). Absent: motor sensory deficit - Psychiatric Psychiatric exam: Present: anxious. Absent: homicidal ideation, suicidal ideation - Skin Skin exam: Present: warm, dry, intact, normal color. Absent: rash ED Course Vital Signs 10/27/21 22:09 Temperature 98.9 F Pulse Rate 104 H Respiratory 16 Rate Blood Pressure 146/86 [Left] O2 Sat by Pulse 99 Oximetry ED Medical Decision Making - Lab Data Vital Signs 10/27/21 22:09 Temperature 98.9 F Pulse Rate 104 H Respiratory 16 Rate Blood Pressure 146/86 [Left] O2 Sat by Pulse 99 Oximetry - Medical Decision Making Differential diagnosis, including but not limited to: Encounter for medical screening examination, encounter for behavioral health screening examination, anxiety Assessment and plan: 41-year-old female, who was afebrile, with reassuring vital signs, minimally tachycardic and anxious, presenting with nonspecific complaints. Her physical exam is benign and unremarkable. While anxious, she is not homicidal or suicidal, and she is awake, alert, oriented, sober and of sound mind, and exhibits decision-making capacity. She does not meet criteria for 1013 hold or involuntary hold. Based off of the provided history and physical examination, she does not appear to have an emergent medical condition present. She does not appear to have an emergent psychiatric condition present. The patient may be discharged, I will give this patient a list of outpatient homeless shelters, she may remain in the waiting room to speak to the case filler/psychotherapist social worker if she so desires, and she can be discharged with Lacri- Lube/artificial tears for her chronic dry eye. Critical care attestation.: If time is entered above; I have spent that time in minutes in the direct care of this critically ill patient, excluding procedure time. ED Disposition Clinical Impression: Encounter for behavioral health screening, Encounter for medical screening examination, Dry eye Disposition: HOME / SELF CARE / HOMELESS Is pt being admited?: No Does the pt Need Aspirin: No Condition: Good Additional Instructions: Use the artificial tears as often as as needed and directed. Do not apply contact lenses to eyes. Wear glasses if needed. Continue current outpatient medications otherwise. Follow-up with outpatient homeless nursing home resources that have been provided to the patient. Follow-up with an outpatient primary care doctor within the next 2 weeks. Follow-up with an outpatient psychiatrist or mental health specialist within the next week. Please return to the emergency room right away with new pain, worsened pain, migration of pain, projectile vomiting, change in mental status, confusion, inability tolerate liquid feeds, new, worsened or different symptoms not present on the initial emergency room evaluation Referrals: [facility] [Provider Group] - 3-5 Days [facility] [Outside] - 3-5 Days [facility] [Outside] - 3-5 Days
== END 2021-10-28 05:12 | disposition home or self-care (01) ==
LOC: ED 21:57
DX: H04.129 Dry eye syndrome of unspecified lacrimal gland (principal); Z13.30 Encounter for screening examination for mental health and behavioral disorders, unspecified; Z00.00 Encounter for general adult medical examination without abnormal findings; Z88.2 Allergy status to sulfonamides; Z88.8 Allergy status to other drugs, medicaments and biological substances
CPT/HCPCS: 99283

== ENCOUNTER 2021-10-28 18:35 | Emergency (ER) | payer MEDICAID ==
--- NOTE | 2021-10-28 23:19 | Emergency Department Report ---
ED General Adult HPI - General Chief complaint: Dizziness Stated complaint: dizziness Time Seen by Provider: 10/28/21 19:20 Source: patient Mode of arrival: Ambulatory Limitations: No Limitations - History of Present Illness Initial comments: Patient is a 41-year-old Afro-[place] female who is on her third visit this week for very nonspecific complaints. She signed in for dizziness within on my exam was complaining that she has some lower back discomfort. She denied any trauma states there was no dysuria or urinary frequency or abnormal vaginal b leeding. Patient is complaining of itchy eyes but on the visit earlier this week she was already prescribed Patanol and has had her eyes evaluated several times. She is not endorsing any nausea vomiting diarrhea cough cold or congestion. She does have a history of HIV anxiety and methamphetamine use. Patient is a poor historian regarding why she return to the emergency department today. - Related Data Home Medications Medication Instructions Recorded Confirmed Last Taken Bictegrav/Emtricit/Tenofov Ala 1 tab PO DAILY 08/04/20 08/04/20 Unknown [Biktarvy 50-200-25 mg (Nf)] Ondansetron [Zofran Odt] 4 mg PO Q8HR 08/04/20 08/04/20 Unknown Valacyclovir HCl [Valacyclovir] 500 mg PO DAILY 08/04/20 08/04/20 Unknown Previous Rx's Medication Instructions Recorded Last Taken Type QUEtiapine [SEROquel] 200 mg PO QHS #14 tablet 01/04/19 Unknown Rx risperiDONE [RisperDAL] 0.5 mg PO BID #60 tablet 10/26/19 Unknown Rx Fluconazole [Diflucan TAB] 100 mg PO QDAY #7 tablet 08/04/20 Unknown Rx clonazePAM [ Klonopin] 0.5 mg PO DAILY PRN #15 tab 08/12/20 Unknown Rx risperiDONE [RisperDAL] 0.25 mg PO BID #60 tab 08/12/20 Unknown Rx Omeprazole 40 mg PO DAILY #30 capsule. 08/16/20 Unknown Rx Benzonatate [Tessalon Perles] 100 mg PO Q8HR #30 capsule 02/03/21 Unknown Rx Fluticasone [Flonase] 1 spray NS QDAY #1 bottle 02/03/21 Unknown Rx Albuterol Mdi (or & Nicu Only) 2 puff IH QID PRN #8.5 gram 07/22/21 Unknown Rx [ProAir HFA Inhaler] Cetirizine HCl [Zyrtec 10mg tab] 10 mg PO DAILY #30 tablet 07/22/21 Unknown Rx Fluconazole [Diflucan TAB] 200 mg PO QDAY #1 tablet 07/22/21 Unknown Rx Olopatadine HCl [Patanol 0.1%] 1 drop OP BID #5 ml 07/22/21 Unknown Rx metroNIDAZOLE [Flagyl] 500 mg PO BID 7 Days #14 tab 08/27/21 Unknown Rx Etodolac [Lodine] 400 mg PO BID #20 tablet 08/31/21 Unknown Rx Lidocaine [Lidoderm] 1 each TP BID #1 box 08/31/21 Unknown Rx Albuterol Sulfate [Proair 90 mcg IH Q4HR PRN #2 aer.pow.ba 10/09/21 Unknown Rx Respiclick] Fluticasone [Flonase] 1 spray NS QDAY #1 bottle 10/09/21 Unknown Rx Olopatadine HCl [Patanol 0.1%] 1 drop OP BID #5 ml 10/09/21 Unknown Rx Benzonatate [Tessalon Perles] 100 mg PO Q8HR PRN #12 cap 10/25/21 Unknown Rx Fluticasone [Flonase] 1 spray NS QDAY #1 bottle 10/25/21 Unknown Rx Loratadine 10 mg PO DAILY #30 tab 10/25/21 Unknown Rx guaiFENesin ER [Mucinex ER] 600 mg PO Q12H #14 tab 10/25/21 Unknown Rx Mineral Oil/Petrolatum,White 7 gm OP PRN PRN #1 oint...g. 10/28/21 Unknown Rx [Refresh Lacri-Lube Ointment] Allergies Allergy/AdvReac Type Severity Reaction Status Date / Time Sulfa (Sulfonamide Allergy Swelling Verified 10/27/21 22:10 Antibiotics) sulfamethoxazole Allergy Swelling Verified 10/27/21 22:10 [From Bactrim] trimethoprim [From Bactrim] Allergy Swelling Verified 10/27/21 22:10 ziprasidone [From Geodon] Allergy Unknown Verified 10/27/21 22:10 ED Review of Systems ROS: Stated complaint: dizziness Other details as noted in HPI Comment: All other systems reviewed and negative ED Past Medical Hx - Past Medical History Hx Hypertension: No Hx Psychiatric Treatment: Yes (PTSD, BIPOLAR, ADHD,anxiety) Hx Asthma: No Hx HIV: Yes (Last CD4 800's 07/19/2019) Additional medical history: ezcema/ STATES "WHATEVER THEY DX ME WITH". - Surgical History Hx Coronary Stent: No Additional Surgical History: D&C. breast implants. wisdom teeth removed. tubal ligation - Social History Smoking Status: Never Smoker Substance Use Type: None - Medications Home Medications: Home Medications Medication Instructions Recorded Confirmed Last Taken Type QUEtiapine [SEROquel] 200 mg PO QHS #14 tablet 01/04/19 08/04/20 Unknown Rx risperiDONE [RisperDAL] 0.5 mg PO BID #60 tablet 10/26/19 08/04/20 Unknown Rx Bictegrav/Emtricit/Tenofov Ala 1 tab PO DAILY 08/04/20 08/04/20 Unknown History [Biktarvy 50-200-25 mg (Nf)] Fluconazole [Diflucan TAB] 100 mg PO QDAY #7 tablet 08/04/20 Unknown Rx Ondansetron [Zofran Odt] 4 mg PO Q8HR 08/04/20 08/04/20 Unknown History Valacyclovir HCl [Valacyclovir] 500 mg PO DAILY 08/04/20 08/04/20 Unknown History clonazePAM [ Klonopin] 0.5 mg PO DAILY PRN #15 tab 08/12/20 Unknown Rx risperiDONE [RisperDAL] 0.25 mg PO BID #60 tab 08/12/20 Unknown Rx Omeprazole 40 mg PO DAILY #30 capsule. 08/16/20 Unknown Rx Benzonatate [Tessalon Perles] 100 mg PO Q8HR #30 capsule 02/03/21 Unknown Rx Fluticasone [Flonase] 1 spray NS QDAY #1 bottle 02/03/21 Unknown Rx Albuterol Mdi (or & Nicu Only) 2 puff IH QID PRN #8.5 gram 07/22/21 Unknown Rx [ProAir HFA Inhaler] Cetirizine HCl [Zyrtec 10mg tab] 10 mg PO DAILY #30 tablet 07/22/21 Unknown Rx Fluconazole [Diflucan TAB] 200 mg PO QDAY #1 tablet 07/22/21 Unknown Rx Olopatadine HCl [Patanol 0.1%] 1 drop OP BID #5 ml 07/22/21 Unknown Rx metroNIDAZOLE [Flagyl] 500 mg PO BID 7 Days #14 tab 08/27/21 Unknown Rx Etodolac [Lodine] 400 mg PO BID #20 tablet 08/31/21 Unknown Rx Lidocaine [Lidoderm] 1 each TP BID #1 box 08/31/21 Unknown Rx Albuterol Sulfate [Proair 90 mcg IH Q4HR PRN #2 aer.pow.ba 10/09/21 Unknown Rx Respiclick] Fluticasone [Flonase] 1 spray NS QDAY #1 bottle 10/09/21 Unknown Rx Olopatadine HCl [Patanol 0.1%] 1 drop OP BID #5 ml 10/09/21 Unknown Rx Benzonatate [Tessalon Perles] 100 mg PO Q8HR PRN #12 cap 10/25/21 Unknown Rx Fluticasone [Flonase] 1 spray NS QDAY #1 bottle 10/25/21 Unknown Rx Loratadine 10 mg PO DAILY #30 tab 10/25/21 Unknown Rx guaiFENesin ER [Mucinex ER] 600 mg PO Q12H #14 tab 10/25/21 Unknown Rx Mineral Oil/Petrolatum,White 7 gm OP PRN PRN #1 oint...g. 10/28/21 Unknown Rx [Refresh Lacri-Lube Ointment] ED Physical Exam - General Limitations: No Limitations General appearance: alert, in no apparent distress - Head Head exam: Present: atraumatic, normocephalic - Eye Eye exam: Present: normal appearance - ENT ENT exam: Present: mucous membranes moist - Neck Neck exam: Present: normal inspection - Respiratory Respiratory exam: Present: normal lung sounds bilaterally. Absent: respiratory distress, wheezes, rales, rhonchi - Cardiovascular Cardiovascular Exam: Present: regular rate, normal rhythm. Absent: systolic murmur, diastolic murmur, rubs, gallop - GI/Abdominal GI/Abdominal exam: Present: soft, normal bowel sounds - Extremities Exam Extremities exam: Present: normal inspection - Back Exam Back exam: Present: normal inspection - Neurological Exam Neurological exam: Present: alert, oriented X3 - Psychiatric Psychiatric exam: Present: normal affect, normal mood - Skin Skin exam: Present: warm, dry, intact, normal color. Absent: rash ED Course Vital Signs 10/28/21 18:41 Temperature 97.7 F Pulse Rate 99 H Respiratory 16 Rate Blood Pressure 150/100 [Right] O2 Sat by Pulse 98 Oximetry ED Medical Decision Making - Medical Decision Making My intent was to at least check a urinalysis on the patient to ensure that there was no signs of infection or hematuria however the patient is refusing to give a urine sample. I do believe she is here for secondary gain as she appears to be resting comfortably in the emergency department. Canceled the urinalysis order and the patient will be discharged home. Critical care attestation.: If time is entered above; I have spent that time in minutes in the direct care of this critically ill patient, excluding procedure time. ED Disposition Clinical Impression: Discomfort of back Disposition: 01 HOME / SELF CARE / HOMELESS Is pt being admited?: No Does the pt Need Aspirin: No Condition: Stable Additional Instructions: Please use Tylenol and Motrin as needed for your lower back pain. Time of Disposition: 23:19
[2021-10-29 01:26] VITALS: BP 159/104
== END 2021-10-29 00:33 | disposition home or self-care (01) ==
LOC: ED 18:35
DX: M54.50 Low back pain, unspecified (principal); Z88.2 Allergy status to sulfonamides; Z88.8 Allergy status to other drugs, medicaments and biological substances
CPT/HCPCS: 99282

== ENCOUNTER 2021-10-30 20:44 | Emergency (ER) | payer MEDICAID ==
[2021-10-31] MEDS ORDERED: ACETAMINOPHEN 500 MG TAB PO ONE (01:31)
[2021-10-31 02:04] LABS: Basophils % (Auto) 0.4 % (0.0-1.8); Eosinophils % (Auto) 0.5 % (0.0-4.3); Hematocrit 33.3 % (30.3-42.9); Hemoglobin 10.9 gm/dl (10.1-14.3); Lymphocytes # (Auto) 0.6 K/mm3 (1.2-5.4); Lymphocytes % (Auto) 14.5 % (13.4-35.0); Mean Corpuscular HGB Conc 33 % (30-34); Mean Corpuscular Volume 80 fl (79-97); Monocytes # (Auto) 0.5 K/mm3 (0.0-0.8); Monocytes % (Auto) 12.9 % (0.0-7.3); Platelet Count 313 K/mm3 (140-440); Red Blood Count 4.19 M/mm3 (3.65-5.03); Red Cell Distribution Width 17.3 % (13.2-15.2)
--- NOTE | 2021-10-31 02:14 | XRay Report ---
CHEST 2 VIEWS INDICATION / CLINICAL INFORMATION: Medical Clearance Psych. COMPARISON: 10/25/21 FINDINGS: SUPPORT DEVICES: None. HEART / MEDIASTINUM: No significant abnormality. LUNGS / PLEURA: No significant pulmonary or pleural abnormality. No pneumothorax. ADDITIONAL FINDINGS: No significant additional findings. IMPRESSION: 1. No acute findings. Signer Name: Bertram Herrera MD Signed: 10/31/2021 2:10 AM Workstation Name: [id number]
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
[2021-10-31 02:24] LABS: Alanine Aminotransferase 45 units/L (7-56); Albumin 3.6 g/dL (3.9-5); Blood Urea Nitrogen 8 mg/dL (7-17); Calcium 8.3 mg/dL (8.4-10.2); Hemolysis Index 0
[2021-10-31] MEDS ORDERED: ONDANSETRON 4 MG ODT TAB PO ONE (02:24)
[2021-10-31 02:25] LABS: BUN/Creatinine Ratio 11
[2021-10-31] MEDS ORDERED: POTASSIUM CHLORIDE ER 20 MEQ TAB PO ONE (02:38)
[2021-10-31] MEDS ORDERED: LORazepam 2 MG/ML VIAL IV ONE (02:38)
[2021-10-31] MEDS ORDERED: SODIUM CHLORIDE 0.9% 1000 ML 1,000 ML IV ONE (02:38)
--- NOTE | 2021-10-31 06:02 | Emergency Department Report ---
Blank Doc - Documentation Documentation: 0600-I assumed care with psych consult pending. 0845-psychiatric services has requested a coronavirus test on this patient. This was ordered. 1200-
--- NOTE | 2021-10-31 11:45 | Progress Note ---
Subjective - Reason for Consult Consult date: 10/31/21 Reason for consult: anxiety - Chief Complaint Chief complaint: The patient was seen today. She is polite and cooperative. She is a/o c 3. She appears anxious. She is moving about and fidgety. But when asked, she says "I'm just cold." She asks for a blanket. She says she was brought by the ambulance because "I didn't feel good. I'm in pain." She denies SI/HI or hallucinations of any kind." The patient says she has a history of bipolar, and adhd. She says she takes seroquel, adderall and geodon. The patient says she is complain with all her meds. She says "I'm hurting. I came cause I'm hurting." She says she lives with someone and is single. The patient denies any drug use, alcohol or nicotine. Although medical records state methamphetamine use REVIEW OF SYSTEMS Constitutional: Negative for weight loss ENT: Negative for stridor Respiratory: Negative for cough or hemoptysis All other systems reviewed and are negative MENTAL STATUS EXAMINATION General Appearance and Behavior: Age appropriate, good hygiene, wearing appropriate clothes, cooperative polite with questioning. Cooperation: cooperative Psychomotor Behavior: Psychomotor agitation Mood: not good, hurting, appears anxious but denies Affect and affective range: congruent Thought Process: Goal oriented Thought Content: None Speech: Normal Suicidal Ideation: Denies Homicidal Ideation: Denies hallucination: Denies Impulse Control: Limited Insight and Judgment: limited insight and fair judgment Memory: Intact Attention: attentive Orientation: Alert and oriented Diagnoses: (1) Generalized Anxiety Disorder Treatment Plan: Continue previously prescribed meds Medical: per primary Disposition: do not recommend acute psychiatric inpatient treatment. The patient understands if SI/HI or any fear of endangerment arise she is to seek immediate assistance The ornamental plasterer helper is to give the patient all necessary resources Will sing off. Thanks Case staffed with Dr. Coronel Mental Status Exam - Vital signs Last Vital Signs Temp 98.9 F 10/30/21 20:47 Pulse 73 10/31/21 06:00 Resp 16 10/31/21 06:00 BP 134/72 10/31/21 06:00 Pulse Ox 100 10/31/21 06:00
[2021-10-31 15:06] VITALS: BP 130/72
== END 2021-10-31 13:00 | disposition home or self-care (01) ==
LOC: ED 20:44
DX: F41.9 Anxiety disorder, unspecified (principal); B20 Human immunodeficiency virus [HIV] disease; F29 Unspecified psychosis not due to a substance or known physiological condition; F31.9 Bipolar disorder, unspecified; Z20.822 Contact with and (suspected) exposure to COVID-19
CPT/HCPCS: 36415; 71046; 80053; 84703; 85025; 96361; 96374; 99284; J2060; J7030; U0003; 80320; J3490; Q0162; G0480

== ENCOUNTER 2021-11-03 05:17 | Emergency (ER) | payer MEDICAID ==
--- NOTE | 2021-11-03 07:32 | XRay Report ---
CHEST 2 VIEWS INDICATION / CLINICAL INFORMATION: shortness of breath. COMPARISON: 10/31/21 FINDINGS: Patient was unwilling to remove brassiere. SUPPORT DEVICES: None. HEART / MEDIASTINUM: No significant abnormality. LUNGS / PLEURA: No significant pulmonary or pleural abnormality. No pneumothorax. ADDITIONAL FINDINGS: No significant additional findings. IMPRESSION: 1. No acute findings. No change. Signer Name: Bertram Herrera MD Signed: 11/03/2021 7:27 AM Workstation Name: [id number]
[2021-11-03 08:45] VITALS: BP 158/112
--- NOTE | 2021-11-03 08:50 | Emergency Department Report ---
ED General Adult HPI - General Chief complaint: Dyspnea/Respdistress Stated complaint: shortness of breath Time Seen by Provider: 11/03/21 06:36 Source: patient, EMS Mode of arrival: Ambulatory Limitations: No Limitations - History of Present Illness Initial comments: 41-year-old female with a past medical history of HIV with undetectable viral load currently on antiretrovirals, PTSD, bipolar, ADHD, and anxiety presents to the ED with complaints of shortness of breath for the past week. Patient was seen here on 10/31/2021 for multiple complaints including psych complaints. At that time she had a positive COVID test and a normal chest x-ray. She denies any cough, hemoptysis, leg pain or swelling, or chest pain. Patient refusing to answer many of the HPI questions. She appears anxious and fidgety. She denies any hormone use. - Related Data Home Medications Medication Instructions Recorded Confirmed Last Taken Bictegrav/Emtricit/Tenofov Ala 1 tab PO DAILY 08/04/20 08/04/20 Unknown [Biktarvy 50-200-25 mg (Nf)] Ondansetron [Zofran Odt] 4 mg PO Q8HR 08/04/20 08/04/20 Unknown Valacyclovir HCl [Valacyclovir] 500 mg PO DAILY 08/04/20 08/04/20 Unknown Previous Rx's Medication Instructions Recorded Last Taken Type QUEtiapine [SEROquel] 200 mg PO QHS #14 tablet 01/04/19 Unknown Rx risperiDONE [RisperDAL] 0.5 mg PO BID #60 tablet 10/26/19 Unknown Rx Fluconazole [Diflucan TAB] 100 mg PO QDAY #7 tablet 08/04/20 Unknown Rx clonazePAM [ Klonopin] 0.5 mg PO DAILY PRN #15 tab 08/12/20 Unknown Rx risperiDONE [RisperDAL] 0.25 mg PO BID #60 tab 08/12/20 Unknown Rx Omeprazole 40 mg PO DAILY #30 capsule. 08/16/20 Unknown Rx Benzonatate [Tessalon Perles] 100 mg PO Q8HR #30 capsule 02/03/21 Unknown Rx Fluticasone [Flonase] 1 spray NS QDAY #1 bottle 02/03/21 Unknown Rx Cetirizine HCl [Zyrtec 10mg tab] 10 mg PO DAILY #30 tablet 07/22/21 Unknown Rx Fluconazole [Diflucan TAB] 200 mg PO QDAY #1 tablet 07/22/21 Unknown Rx Olopatadine HCl [Patanol 0.1%] 1 drop OP BID #5 ml 07/22/21 Unknown Rx metroNIDAZOLE [Flagyl] 500 mg PO BID 7 Days #14 tab 08/27/21 Unknown Rx Etodolac [Lodine] 400 mg PO BID #20 tablet 08/31/21 Unknown Rx Lidocaine [Lidoderm] 1 each TP BID #1 box 08/31/21 Unknown Rx Albuterol Sulfate [Proair 90 mcg IH Q4HR PRN #2 aer.pow.ba 10/09/21 Unknown Rx Respiclick] Fluticasone [Flonase] 1 spray NS QDAY #1 bottle 10/09/21 Unknown Rx Olopatadine HCl [Patanol 0.1%] 1 drop OP BID #5 ml 10/09/21 Unknown Rx Benzonatate [Tessalon Perles] 100 mg PO Q8HR PRN #12 cap 10/25/21 Unknown Rx Fluticasone [Flonase] 1 spray NS QDAY #1 bottle 10/25/21 Unknown Rx Loratadine 10 mg PO DAILY #30 tab 10/25/21 Unknown Rx guaiFENesin ER [Mucinex ER] 600 mg PO Q12H #14 tab 10/25/21 Unknown Rx Mineral Oil/Petrolatum,White 7 gm OP PRN PRN #1 oint...g. 10/28/21 Unknown Rx [Refresh Lacri-Lube Ointment] Albuterol Mdi (or & Nicu Only) 2 puff IH QID PRN #8.5 gram 11/03/21 Unknown Rx [ProAir HFA Inhaler] Allergies Allergy/AdvReac Type Severity Reaction Status Date / Time Sulfa (Sulfonamide Allergy Swelling Verified 10/27/21 22:10 Antibiotics) sulfamethoxazole Allergy Swelling Verified 10/27/21 22:10 [From Bactrim] trimethoprim [From Bactrim] Allergy Swelling Verified 10/27/21 22:10 ziprasidone [From Geodon] Allergy Unknown Verified 10/27/21 22:10 ED Review of Systems ROS: Stated complaint: shortness of breath Other details as noted in HPI Constitutional: denies: fever Respiratory: shortness of breath. denies: cough Cardiovascular: denies: chest pain ED Past Medical Hx - Past Medical History Hx Hypertension: No Hx Psychiatric Treatment: Yes (PTSD, BIPOLAR, ADHD,anxiety) Hx Asthma: No Hx HIV: Yes (Last CD4 800's 07/19/2019) Additional medical history: ezcema/ STATES "WHATEVER THEY DX ME WITH". - Surgical History Hx Coronary Stent: No Additional Surgical History: D&C. breast implants. wisdom teeth removed. tubal ligation - Social History Smoking Status: Never Smoker Substance Use Type: None - Medications Home Medications: Home Medications Medication Instructions Recorded Confirmed Last Taken Type QUEtiapine [SEROquel] 200 mg PO QHS #14 tablet 01/04/19 08/04/20 Unknown Rx risperiDONE [RisperDAL] 0.5 mg PO BID #60 tablet 10/26/19 08/04/20 Unknown Rx Bictegrav/Emtricit/Tenofov Ala 1 tab PO DAILY 08/04/20 08/04/20 Unknown History [Biktarvy 50-200-25 mg (Nf)] Fluconazole [Diflucan TAB] 100 mg PO QDAY #7 tablet 08/04/20 Unknown Rx Ondansetron [Zofran Odt] 4 mg PO Q8HR 08/04/20 08/04/20 Unknown History Valacyclovir HCl [Valacyclovir] 500 mg PO DAILY 08/04/20 08/04/20 Unknown History clonazePAM [ Klonopin] 0.5 mg PO DAILY PRN #15 tab 08/12/20 Unknown Rx risperiDONE [RisperDAL] 0.25 mg PO BID #60 tab 08/12/20 Unknown Rx Omeprazole 40 mg PO DAILY #30 capsule. 08/16/20 Unknown Rx Benzonatate [Tessalon Perles] 100 mg PO Q8HR #30 capsule 02/03/21 Unknown Rx Fluticasone [Flonase] 1 spray NS QDAY #1 bottle 02/03/21 Unknown Rx Cetirizine HCl [Zyrtec 10mg tab] 10 mg PO DAILY #30 tablet 07/22/21 Unknown Rx Fluconazole [Diflucan TAB] 200 mg PO QDAY #1 tablet 07/22/21 Unknown Rx Olopatadine HCl [Patanol 0.1%] 1 drop OP BID #5 ml 07/22/21 Unknown Rx metroNIDAZOLE [Flagyl] 500 mg PO BID 7 Days #14 tab 08/27/21 Unknown Rx Etodolac [Lodine] 400 mg PO BID #20 tablet 08/31/21 Unknown Rx Lidocaine [Lidoderm] 1 each TP BID #1 box 08/31/21 Unknown Rx Albuterol Sulfate [Proair 90 mcg IH Q4HR PRN #2 aer.pow.ba 10/09/21 Unknown Rx Respiclick] Fluticasone [Flonase] 1 spray NS QDAY #1 bottle 10/09/21 Unknown Rx Olopatadine HCl [Patanol 0.1%] 1 drop OP BID #5 ml 10/09/21 Unknown Rx Benzonatate [Tessalon Perles] 100 mg PO Q8HR PRN #12 cap 10/25/21 Unknown Rx Fluticasone [Flonase] 1 spray NS QDAY #1 bottle 10/25/21 Unknown Rx Loratadine 10 mg PO DAILY #30 tab 10/25/21 Unknown Rx guaiFENesin ER [Mucinex ER] 600 mg PO Q12H #14 tab 10/25/21 Unknown Rx Mineral Oil/Petrolatum,White 7 gm OP PRN PRN #1 oint...g. 10/28/21 Unknown Rx [Refresh Lacri-Lube Ointment] Albuterol Mdi (or & Nicu Only) 2 puff IH QID PRN #8.5 gram 11/03/21 Unknown Rx [ProAir HFA Inhaler] ED Physical Exam - General Limitations: No Limitations General appearance: alert, anxious, other (Agitated) - Head Head exam: Present: atraumatic, normocephalic - Eye Eye exam: Present: normal appearance - Neck Neck exam: Present: normal inspection - Respiratory Respiratory exam: Present: normal lung sounds bilaterally. Absent: respiratory distress - Cardiovascular Cardiovascular Exam: Present: regular rate, normal rhythm - Neurological Exam Neurological exam: Present: alert - Psychiatric Psychiatric exam: Present: agitated, anxious - Skin Skin exam: Present: warm, dry, intact, normal color. Absent: rash, cyanosis, diaphoretic ED Course Vital Signs 11/03/21 08:40 Temperature 98.7 F Pulse Rate 96 H Respiratory 18 Rate Blood Pressure 158/112 O2 Sat by Pulse 98 Oximetry ED Medical Decision Making - Radiology Data Radiology results: report reviewed CHEST 2 VIEWS INDICATION / CLINICAL INFORMATION: shortness of breath. COMPARISON: 10/31/21 FINDINGS: Patient was unwilling to remove brassiere. SUPPORT DEVICES: None. HEART / MEDIASTINUM: No significant abnormality. LUNGS / PLEURA: No significant pulmonary or pleural abnormality. No pneumothorax. ADDITIONAL FINDINGS: No significant additional findings. IMPRESSION: 1. No acute findings. No change. - Medical Decision Making 41-year-old female with a past medical history of HIV with undetectable viral load currently on antiretrovirals, PTSD, bipolar, ADHD, and anxiety presents to the ED with complaints of shortness of breath for the past week. Patient was seen here on 10/31/2021 for multiple complaints including psych complaints. At that time she had a positive COVID test and a normal chest x-ray. She denies any cough, hemoptysis, leg pain or swelling, or chest pain. Patient refusing to answer many of the HPI questions. She appears anxious and fidgety. She denies any hormone use. Chest x-ray is normal. Pulse ox is normal on room air. Patient refuses ambulatory pulse ox though it was explained to her in detail why this was important, she continues to decline. She is otherwise well-appearing, her lungs are clear on exam, she is stable for discharge home. Patient to follow-up with primary care. Discussed signs and symptoms that should prompt immediate return to the ED with patient who verbalizes understanding Critical care attestation.: If time is entered above; I have spent that time in minutes in the direct care of this critically ill patient, excluding procedure time. ED Disposition Clinical Impression: SOB (shortness of breath), COVID Disposition: HOME / SELF CARE / HOMELESS Is pt being admited?: No Condition: Stable Instructions: Shortness of Breath, Adult, [id number] Prescriptions: Albuterol Mdi (or & Nicu Only) [ProAir HFA Inhaler] 2 puff IH QID PRN #8.5 gram PRN Reason: Shortness Of Breath Referrals: [facility] [Provider Group] - 3-5 Days
== END 2021-11-03 09:52 | disposition home or self-care (01) ==
LOC: ED 05:17
DX: U07.1 COVID-19 (principal); R06.02 Shortness of breath; Z88.2 Allergy status to sulfonamides; Z88.5 Allergy status to narcotic agent
CPT/HCPCS: 71046; 99283

== ENCOUNTER 2022-03-01 00:13 | Emergency (ER) | payer MEDICAID ==
--- NOTE | 2022-03-01 13:44 | Event Note ---
ED Screening Note ED Screening Note: Patient had left the emergency room. Numerous staff members attempted to find her, and they cannot find her. Then at 1343 she appeared in room 40. Chemistry Quality Control Analyst states that the nurse handed her chart and said to put her in a room. to see This initial assessment/diagnostic orders/clinical plan/treatment(s) is/are subject to change based on patients health status, clinical progression and re- assessment by fellow clinical providers in the ED. Further treatment and workup at subsequent clinical providers discretion. Patient/guardian urged not to elope from the ED as their condition may be serious if not clinically assessed and managed. Initial orders include:
[2022-03-01] MEDS ORDERED: LORazepam 1 MG TAB PO ONE (14:10)
--- NOTE | 2022-03-01 14:16 | Emergency Department Report ---
HPI - General Chief Complaint: Medical Clearance Time Seen by Provider: 03/01/22 13:49 - HPI HPI: Room 40 The patient is a 41-year-old female present with a chief complaint of itching eyes and vagina. As soon as into the room the patient states "my eyes are bothering me, my throat is bothering me and my vagina itches." Patient acknowledges symptoms have all been going on for the past 3 days. Patient states she has itchy throat and eyes as well as vagina for the past 2 days. Patient admits an occasional cough that is productive of clear sputum. Patient denies history of fever and states that she has been vaccinated against COVID. Patient appears very anxious and is pacing around the room ED Past Medical Hx - Past Medical History Hx Psychiatric Treatment: Yes (PTSD, BIPOLAR, ADHD,anxiety) Hx HIV: Yes (Last CD4 800's 07/19/2019) Additional medical history: ezcema/ STATES "WHATEVER THEY DX ME WITH". - Surgical History Past Surgical History?: Yes Additional Surgical History: D&C. breast implants. wisdom teeth removed. tubal ligation - Family History Family history: no significant - Social History Smoking Status: Never Smoker Substance Use Type: None (Denies illicit drug use), Alcohol (Occasional) - Medications Home Medications: Home Medications Medication Instructions Recorded Confirmed Last Taken Type QUEtiapine [SEROquel] 200 mg PO QHS #14 tablet 01/04/19 08/04/20 Unknown Rx risperiDONE [RisperDAL] 0.5 mg PO BID #60 tablet 10/26/19 08/04/20 Unknown Rx Bictegrav/Emtricit/Tenofov Ala 1 tab PO DAILY 08/04/20 08/04/20 Unknown History [Biktarvy 50-200-25 mg (Nf)] Fluconazole [Diflucan TAB] 100 mg PO QDAY #7 tablet 08/04/20 Unknown Rx Ondansetron [Zofran Odt] 4 mg PO Q8HR 08/04/20 08/04/20 Unknown History Valacyclovir HCl [Valacyclovir] 500 mg PO DAILY 08/04/20 08/04/20 Unknown History clonazePAM [ Klonopin] 0.5 mg PO DAILY PRN #15 tab 08/12/20 Unknown Rx risperiDONE [RisperDAL] 0.25 mg PO BID #60 tab 08/12/20 Unknown Rx Omeprazole 40 mg PO DAILY #30 capsule. 08/16/20 Unknown Rx Benzonatate [Tessalon Perles] 100 mg PO Q8HR #30 capsule 02/03/21 Unknown Rx Fluticasone [Flonase] 1 spray NS QDAY #1 bottle 02/03/21 Unknown Rx Cetirizine HCl [Zyrtec 10mg tab] 10 mg PO DAILY #30 tablet 07/22/21 Unknown Rx Fluconazole [Diflucan TAB] 200 mg PO QDAY #1 tablet 07/22/21 Unknown Rx Olopatadine HCl [Patanol 0.1%] 1 drop OP BID #5 ml 07/22/21 Unknown Rx metroNIDAZOLE [Flagyl] 500 mg PO BID 7 Days #14 tab 08/27/21 Unknown Rx Etodolac [Lodine] 400 mg PO BID #20 tablet 08/31/21 Unknown Rx Lidocaine [Lidoderm] 1 each TP BID #1 box 08/31/21 Unknown Rx Albuterol Sulfate [Proair 90 mcg IH Q4HR PRN #2 aer.pow.ba 10/09/21 Unknown Rx Respiclick] Fluticasone [Flonase] 1 spray NS QDAY #1 bottle 10/09/21 Unknown Rx Olopatadine HCl [Patanol 0.1%] 1 drop OP BID #5 ml 10/09/21 Unknown Rx Benzonatate [Tessalon Perles] 100 mg PO Q8HR PRN #12 cap 10/25/21 Unknown Rx Fluticasone [Flonase] 1 spray NS QDAY #1 bottle 10/25/21 Unknown Rx Loratadine 10 mg PO DAILY #30 tab 10/25/21 Unknown Rx guaiFENesin ER [Mucinex ER] 600 mg PO Q12H #14 tab 10/25/21 Unknown Rx Mineral Oil/Petrolatum,White 7 gm OP PRN PRN #1 oint...g. 10/28/21 Unknown Rx [Refresh Lacri-Lube Ointment] Albuterol Mdi (or & Nicu Only) 2 puff IH QID PRN #8.5 gram 11/03/21 Unknown Rx [ProAir HFA Inhaler] ED Review of Systems ROS: Stated complaint: PANIC ATTACK/ANGRY/DANIEL Other details as noted in HPI Constitutional: denies: fever Eyes: other (Itchy eyes) ENT: throat pain (Itchy throat) Respiratory: cough Cardiovascular: denies: chest pain Endocrine: no symptoms reported Gastrointestinal: denies: abdominal pain Genitourinary: discharge Musculoskeletal: denies: back pain Neurological: denies: headache Physical Exam - Physical Exam Physical Exam: GENERAL: The patient is well-developed well-nourished female patient about room appearing anxious but in no acute distress. [] HEENT: Normocephalic. Atraumatic. Extraocular motions are intact. Patient has moist mucous membranes. NECK: Supple. Trachea midline CHEST/LUNGS: Clear to auscultation. There is no respiratory distress noted. HEART/CARDIOVASCULAR: Regular. There is no tachycardia. There is no gallop rub or murmur. ABDOMEN: Abdomen is soft, nontender. Patient has normal bowel sounds. There is no abdominal distention. SKIN: There is no rash. There is no edema. There is no diaphoresis. NEURO: The patient is awake, alert, and oriented. The patient is cooperative. The patient has no focal neurologic deficits. The patient has normal speech and gait. Patient appears anxious MUSCULOSKELETAL: There is no evidence of acute injury. ED Course - Reevaluation(s) Reevaluation #1: 03/01/22 18:32 Patient refusing vitals and pelvic exam - Consultations Consultation #1: 03/01/22 18:32 Patient cleared by psych ED Medical Decision Making - Lab Data Result diagrams: 03/01/22 14:41 03/01/22 14:41 - Differential Diagnosis UTI, vaginitis, URI, bipolar disorder/manic episode Critical care attestation.: If time is entered above; I have spent that time in minutes in the direct care of this critically ill patient, excluding procedure time. ED Disposition Clinical Impression: Vaginal itching Disposition: 07 LEFT WITHOUT BEING SEEN Is pt being admited?: No Does the pt Need Aspirin: No Condition: Undetermined Additional Instructions: Professional and Agency Contacts To help Res[facility] Crises(08/05) [place] Crisis Line: Suicide Prevention Line: Crisis Text Line: Text START to [phone] Emergency: 911 Outpatient COMMUNITY Behavioral Health Resources: CAMERON[facility]: [facility] [address] [place] [id number] KEVIN: [facility] - [facility] [address] [place] [address] MARISA: [facility] - [address] [place] [address] Monday thru Monday - 8am - 5pm [place]: [facility] Address: [address], [place] [address] BILL: [facility] Address: [address] [place] [address] Monday thru Monday- 7am-2pm [facility] Address: [address] [place] [address] Monday thru Monday: 8:30AM-5PM OUTPATIENT MENTAL HEALTH RESOURCES [facility], [address] [place], [place] [id number] [facility] Fawad Reddy MD: [address] [facility] [place], [place] [id number] [facility]: [address] [place], [place] [id number] [facility] [employer], [place] [id number] [phone] [facility]: [address] [facility] [address] [place], [place] [id number] [facility]: [address] [facility] Axel. [facility] [id number] [place] [facility]: [address] [place] [address] Mj Diaz MD: [address] [facility] [id number] [facility]: [address] [place], [place] [id number] [phone] [place] CRISIS AND ACCESS LINE: * Referrals: PRIMARY CARE, [Primary Care Provider] - 3-5 Days Time of Disposition: 18:33 (Patient leaving AMA)
[2022-03-01 15:03] LABS: Basophils % (Auto) 0.5 % (0.0-1.8); Eosinophils # (Auto) 0.1 K/mm3 (0.0-0.4); Hematocrit 36.7 % (30.3-42.9); Hemoglobin 11.6 gm/dl (10.1-14.3); Lymphocytes # (Auto) 0.9 K/mm3 (1.2-5.4); Lymphocytes % (Auto) 20.3 % (13.4-35.0); Mean Corpuscular HGB Conc 32 % (30-34); Mean Corpuscular Volume 77 fl (79-97); Monocytes # (Auto) 0.6 K/mm3 (0.0-0.8); Monocytes % (Auto) 13.2 % (0.0-7.3); Platelet Count 383 K/mm3 (140-440); Red Cell Distribution Width 16.2 % (13.2-15.2)
[2022-03-01 15:24] LABS: BUN/Creatinine Ratio 18; Blood Urea Nitrogen 20 mg/dL (7-17); Calcium 9.3 mg/dL (8.4-10.2); Hemolysis Index 0
--- NOTE | 2022-03-01 15:57 | XRay Report ---
CHEST 1 VIEW INDICATION: Cough. COMPARISON: 11/03/2021 FINDINGS: Support devices: None. Heart: Normal. Lungs/Pleura: No acute pulmonary or pleural findings. IMPRESSION: 1. No acute findings. Signer Name: Eze Grayson MD Signed: 03/01/2022 3:49 PM Workstation Name: [id number]
[2022-03-01] MEDS ORDERED: POTASSIUM CHLORIDE ER 20 MEQ TAB PO ONE (17:58)
== END 2022-03-01 18:44 | disposition left against medical advice (07) ==
LOC: ED 00:13
DX: L29.2 Pruritus vulvae (principal); F31.9 Bipolar disorder, unspecified
CPT/HCPCS: 36415; 71045; 80048; 80320; 84703; 85025; 99284; G0480

== ENCOUNTER 2022-03-03 17:05 | Emergency (ER) | payer MEDICAID ==
[2022-03-03 17:20] VITALS: BP 126/90
[2022-03-03] MEDS ORDERED: predniSONE 20 MG TAB PO ONE (20:37)
[2022-03-03] MEDS ORDERED: IBUPROFEN 800 MG TAB PO ONE (20:37)
[2022-03-03] MEDS ORDERED: AMOXICILLIN/K CLAV 875/125MG TAB PO ONE (20:37)
--- NOTE | 2022-03-03 21:24 | Emergency Department Report ---
ED General Adult HPI - General Chief complaint: Adult Asthma Stated complaint: DIFFICULTY BREATHING Time Seen by Provider: 03/03/22 20:36 Source: EMS Mode of arrival: Ambulatory Limitations: No Limitations - History of Present Illness Initial comments: Patient 41-year-old female with history of recurrent sinusitis AOM strep throat and asthma who presents for generalized malaise fever sore throat and earache for the past 3 days. Patient denies wheezing or shortness of breath at this time. T-max recorded at home no fever noted in triage today. Symptoms are rated at 4/10 with primary source of discomfort of the left ear there is no ear drainage. However there is sinus pressure is exacerbated by movement and position. Symptoms are relieved by nothing. Patient is alert oriented x3 patient is amatory with steady gait. There is no shortness of breath no dizziness no chest pain at this time. This is contradictory to triage note patient states that sometimes exacerbates her asthma however there is no shortness of breath wheezing or chest pain at this time Severity scale (0 -10): 8 - Related Data Home Medications Medication Instructions Recorded Confirmed Last Taken Bictegrav/Emtricit/Tenofov Ala 1 tab PO DAILY 08/04/20 08/04/20 Unknown [Biktarvy 50-200-25 mg (Nf)] Ondansetron [Zofran Odt] 4 mg PO Q8HR 08/04/20 08/04/20 Unknown Valacyclovir HCl [Valacyclovir] 500 mg PO DAILY 08/04/20 08/04/20 Unknown Previous Rx's Medication Instructions Recorded Last Taken Type QUEtiapine [SEROquel] 200 mg PO QHS #14 tablet 01/04/19 Unknown Rx risperiDONE [RisperDAL] 0.5 mg PO BID #60 tablet 10/26/19 Unknown Rx Fluconazole [Diflucan TAB] 100 mg PO QDAY #7 tablet 08/04/20 Unknown Rx clonazePAM [ Klonopin] 0.5 mg PO DAILY PRN #15 tab 08/12/20 Unknown Rx risperiDONE [RisperDAL] 0.25 mg PO BID #60 tab 08/12/20 Unknown Rx Omeprazole 40 mg PO DAILY #30 capsule. 08/16/20 Unknown Rx Benzonatate [Tessalon Perles] 100 mg PO Q8HR #30 capsule 02/03/21 Unknown Rx Fluticasone [Flonase] 1 spray NS QDAY #1 bottle 02/03/21 Unknown Rx Cetirizine HCl [Zyrtec 10mg tab] 10 mg PO DAILY #30 tablet 07/22/21 Unknown Rx Fluconazole [Diflucan TAB] 200 mg PO QDAY #1 tablet 07/22/21 Unknown Rx Olopatadine HCl [Patanol 0.1%] 1 drop OP BID #5 ml 07/22/21 Unknown Rx metroNIDAZOLE [Flagyl] 500 mg PO BID 7 Days #14 tab 08/27/21 Unknown Rx Etodolac [Lodine] 400 mg PO BID #20 tablet 08/31/21 Unknown Rx Lidocaine [Lidoderm] 1 each TP BID #1 box 08/31/21 Unknown Rx Albuterol Sulfate [Proair 90 mcg IH Q4HR PRN #2 aer.pow.ba 10/09/21 Unknown Rx Respiclick] Fluticasone [Flonase] 1 spray NS QDAY #1 bottle 10/09/21 Unknown Rx Olopatadine HCl [Patanol 0.1%] 1 drop OP BID #5 ml 10/09/21 Unknown Rx Benzonatate [Tessalon Perles] 100 mg PO Q8HR PRN #12 cap 10/25/21 Unknown Rx Fluticasone [Flonase] 1 spray NS QDAY #1 bottle 10/25/21 Unknown Rx Loratadine 10 mg PO DAILY #30 tab 10/25/21 Unknown Rx guaiFENesin ER [Mucinex ER] 600 mg PO Q12H #14 tab 10/25/21 Unknown Rx Mineral Oil/Petrolatum,White 7 gm OP PRN PRN #1 oint...g. 10/28/21 Unknown Rx [Refresh Lacri-Lube Ointment] Albuterol Mdi (or & Nicu Only) 2 puff IH QID PRN #8.5 gram 11/03/21 Unknown Rx [ProAir HFA Inhaler] Amoxicillin/K Clav Tab [Augmentin 1 tab PO BID 7 Days #14 tab 03/03/22 Unknown Rx 875 mg] Ibuprofen [Motrin 800 MG tab] 800 mg PO Q8HR PRN #30 tablet 03/03/22 Unknown Rx predniSONE [Deltasone] 20 mg PO QDAY 5 Days #5 tab 03/03/22 Unknown Rx Allergies Allergy/AdvReac Type Severity Reaction Status Date / Time Sulfa (Sulfonamide Allergy Swelling Verified 10/27/21 22:10 Antibiotics) sulfamethoxazole Allergy Swelling Verified 10/27/21 22:10 [From Bactrim] trimethoprim [From Bactrim] Allergy Swelling Verified 10/27/21 22:10 ziprasidone [From Geodon] Allergy Unknown Verified 10/27/21 22:10 ED Review of Systems ROS: Stated complaint: DIFFICULTY BREATHING Other details as noted in HPI Constitutional: chills, fever, malaise Eyes: denies: eye pain, eye discharge, vision change ENT: ear pain, throat pain, congestion, other Respiratory: cough (Sinus pain and pressure). denies: shortness of breath, wheezing Cardiovascular: denies: chest pain, palpitations Endocrine: no symptoms reported Gastrointestinal: denies: abdominal pain, nausea, vomiting, diarrhea Genitourinary: denies: urgency, dysuria, discharge Musculoskeletal: denies: back pain, joint swelling, arthralgia Skin: denies: rash, lesions Neurological: denies: headache, weakness, numbness, paresthesias, confusion, vertigo Psychiatric: denies: anxiety, depression Hematological/Lymphatic: denies: easy bleeding, easy bruising ED Past Medical Hx - Past Medical History Previous Medical History?: Yes Hx Hypertension: No Hx Psychiatric Treatment: Yes (PTSD, BIPOLAR, ADHD,anxiety) Hx Asthma: No Hx HIV: Yes (Last CD4 800's 07/19/2019) Additional medical history: ezcema/ STATES "WHATEVER THEY DX ME WITH". - Surgical History Hx Coronary Stent: No Additional Surgical History: D&C. breast implants. wisdom teeth removed. tubal ligation - Social History Smoking Status: Never Smoker Substance Use Type: None (Denies illicit drug use), Alcohol (Occasional) - Medications Home Medications: Home Medications Medication Instructions Recorded Confirmed Last Taken Type QUEtiapine [SEROquel] 200 mg PO QHS #14 tablet 01/04/19 08/04/20 Unknown Rx risperiDONE [RisperDAL] 0.5 mg PO BID #60 tablet 10/26/19 08/04/20 Unknown Rx Bictegrav/Emtricit/Tenofov Ala 1 tab PO DAILY 08/04/20 08/04/20 Unknown History [Biktarvy 50-200-25 mg (Nf)] Fluconazole [Diflucan TAB] 100 mg PO QDAY #7 tablet 08/04/20 Unknown Rx Ondansetron [Zofran Odt] 4 mg PO Q8HR 08/04/20 08/04/20 Unknown History Valacyclovir HCl [Valacyclovir] 500 mg PO DAILY 08/04/20 08/04/20 Unknown History clonazePAM [ Klonopin] 0.5 mg PO DAILY PRN #15 tab 08/12/20 Unknown Rx risperiDONE [RisperDAL] 0.25 mg PO BID #60 tab 08/12/20 Unknown Rx Omeprazole 40 mg PO DAILY #30 capsule. 08/16/20 Unknown Rx Benzonatate [Tessalon Perles] 100 mg PO Q8HR #30 capsule 02/03/21 Unknown Rx Fluticasone [Flonase] 1 spray NS QDAY #1 bottle 02/03/21 Unknown Rx Cetirizine HCl [Zyrtec 10mg tab] 10 mg PO DAILY #30 tablet 07/22/21 Unknown Rx Fluconazole [Diflucan TAB] 200 mg PO QDAY #1 tablet 07/22/21 Unknown Rx Olopatadine HCl [Patanol 0.1%] 1 drop OP BID #5 ml 07/22/21 Unknown Rx metroNIDAZOLE [Flagyl] 500 mg PO BID 7 Days #14 tab 08/27/21 Unknown Rx Etodolac [Lodine] 400 mg PO BID #20 tablet 08/31/21 Unknown Rx Lidocaine [Lidoderm] 1 each TP BID #1 box 08/31/21 Unknown Rx Albuterol Sulfate [Proair 90 mcg IH Q4HR PRN #2 aer.pow.ba 10/09/21 Unknown Rx Respiclick] Fluticasone [Flonase] 1 spray NS QDAY #1 bottle 10/09/21 Unknown Rx Olopatadine HCl [Patanol 0.1%] 1 drop OP BID #5 ml 10/09/21 Unknown Rx Benzonatate [Tessalon Perles] 100 mg PO Q8HR PRN #12 cap 10/25/21 Unknown Rx Fluticasone [Flonase] 1 spray NS QDAY #1 bottle 10/25/21 Unknown Rx Loratadine 10 mg PO DAILY #30 tab 10/25/21 Unknown Rx guaiFENesin ER [Mucinex ER] 600 mg PO Q12H #14 tab 10/25/21 Unknown Rx Mineral Oil/Petrolatum,White 7 gm OP PRN PRN #1 oint...g. 10/28/21 Unknown Rx [Refresh Lacri-Lube Ointment] Albuterol Mdi (or & Nicu Only) 2 puff IH QID PRN #8.5 gram 11/03/21 Unknown Rx [ProAir HFA Inhaler] Amoxicillin/K Clav Tab [Augmentin 1 tab PO BID 7 Days #14 tab 03/03/22 Unknown Rx 875 mg] Ibuprofen [Motrin 800 MG tab] 800 mg PO Q8HR PRN #30 tablet 03/03/22 Unknown Rx predniSONE [Deltasone] 20 mg PO QDAY 5 Days #5 tab 03/03/22 Unknown Rx ED Physical Exam - General Limitations: No Limitations General appearance: alert, in no apparent distress - Head Head exam: Present: normocephalic, normal inspection - Eye Eye exam: Present: PERRL, EOMI. Absent: conjunctival injection, nystagmus Pupils: Present: normal accommodation - ENT ENT exam: Present: normal orophraynx, mucous membranes moist - Expanded ENT Exam Expanded Ear exam: Present: normal external inspection TM/Canal exam: Erythema: Left TM, Right TM, Bulging: Left TM, Effusion: Left TM, Canal Tenderness: Left TM, Right TM Mouth exam: Absent: trismus Teeth exam: Present: normal inspection Throat exam: Positive: tonsillar erythema, tonsillomegaly, other (No lesions no exudate uvula is midline airways patent no stridor no wheezing). Negative: tonsillar exudate, R peritonsillar mass, L peritonsillar mass - Neck Neck exam: Present: normal inspection, full ROM, lymphadenopathy. Absent: tenderness (Anterior auricle), thyromegaly - Respiratory Respiratory exam: Present: normal lung sounds bilaterally. Absent: respiratory distress, wheezes, stridor, chest wall tenderness - Cardiovascular Cardiovascular Exam: Present: regular rate, normal rhythm, normal heart sounds. Absent: systolic murmur, diastolic murmur, rubs, gallop - GI/Abdominal GI/Abdominal exam: Present: soft, normal bowel sounds. Absent: distended, tenderness - Rectal Rectal exam: Present: deferred - Extremities Exam Extremities exam: Present: normal inspection, full ROM, normal capillary refill - Back Exam Back exam: Present: normal inspection, full ROM. Absent: CVA tenderness (R), CVA tenderness (L) - Neurological Exam Neurological exam: Present: alert, oriented X3, CN II-XII intact - Expanded Neurological Exam Expanded Patient oriented to: Present: person, place, time Best Eye Response ([place]): (4) open spontaneously Best Motor Response ([place]): (6) obeys commands Best Verbal Response ([place]): (5) oriented [place] Total: 15 - Psychiatric Psychiatric exam: Present: normal affect, normal mood - Skin Skin exam: Present: warm, dry, intact, normal color. Absent: rash ED Course Vital Signs 03/03/22 03/03/22 17:15 21:08 Pulse Rate 100 H Respiratory 18 16 Rate Blood Pressure 126/90 [Left] O2 Sat by Pulse 97 Oximetry ED Medical Decision Making - Medical Decision Making This is straightforward AOM and sinusitis. Plan DC to home with antibiotics NSAIDs as needed for pain. Follow-up primary care doctor in 2 to 3 days. Patient is currently tolerating p.o. intake without nausea vomiting. Patient alert oriented x3 patient amatory with steady gait patient DC'd home in stable condition at this time. Critical care attestation.: If time is entered above; I have spent that time in minutes in the direct care of this critically ill patient, excluding procedure time. ED Disposition Clinical Impression: Sinusitis Qualifiers: Sinusitis location: maxillary Chronicity: acute Recurrence: recurrent Qualified Code(s): J01.01 - Acute recurrent maxillary sinusitis AOM (acute otitis media) Qualifiers: Otitis media type: serous Laterality: left Recurrence: recurrent Qualified Code(s): H65.05 - Acute serous otitis media, recurrent, left ear Disposition: HOME / SELF CARE / HOMELESS Is pt being admited?: No Does the pt Need Aspirin: No Condition: Stable Instructions: Otitis Media, Adult, Biek-ra-Npac, Sinusitis, Adult Additional Instructions: Take medications as prescribed, follow-up with your doctor in 2 to 3 days. Return to emergency department should symptoms worsen. Prescriptions: Amoxicillin/K Clav Tab [Augmentin 875 mg] 1 tab PO BID 7 Days #14 tab predniSONE [Deltasone] 20 mg PO QDAY 5 Days #5 tab Ibuprofen [Motrin 800 MG tab] 800 mg PO Q8HR PRN #30 tablet PRN Reason: pain fever Referrals: REKHA ARREOLA MD [Staff Physician] - 3-5 Days Forms: Work/School Release Form(ED) Time of Disposition: 21:28
== END 2022-03-03 23:36 | disposition home or self-care (01) ==
LOC: ED 17:05
DX: J32.9 Chronic sinusitis, unspecified (principal); H66.92 Otitis media, unspecified, left ear; F43.10 Post-traumatic stress disorder, unspecified; F41.9 Anxiety disorder, unspecified; F90.9 Attention-deficit hyperactivity disorder, unspecified type; Z21 Asymptomatic human immunodeficiency virus [HIV] infection status; Z98.890 Other specified postprocedural states; Z88.2 Allergy status to sulfonamides; Z88.8 Allergy status to other drugs, medicaments and biological substances
CPT/HCPCS: 99283

== ENCOUNTER 2022-03-04 17:40 | Emergency (ER) | payer MEDICAID ==
--- NOTE | 2022-03-04 20:51 | Emergency Department Report ---
ED General Adult HPI - General Chief complaint: Adult Asthma Stated complaint: SOB Time Seen by Provider: 03/04/22 20:44 Source: EMS Mode of arrival: Stretcher Limitations: No Limitations - History of Present Illness -: Gradual Improves with: none Worsens with: none Treatments Prior to Arrival: none - Related Data Home Medications Medication Instructions Recorded Confirmed Last Taken Bictegrav/Emtricit/Tenofov Ala 1 tab PO DAILY 08/04/20 08/04/20 Unknown [Biktarvy 50-200-25 mg (Nf)] Ondansetron [Zofran Odt] 4 mg PO Q8HR 08/04/20 08/04/20 Unknown Valacyclovir HCl [Valacyclovir] 500 mg PO DAILY 08/04/20 08/04/20 Unknown Previous Rx's Medication Instructions Recorded Last Taken Type QUEtiapine [SEROquel] 200 mg PO QHS #14 tablet 01/04/19 Unknown Rx risperiDONE [RisperDAL] 0.5 mg PO BID #60 tablet 10/26/19 Unknown Rx Fluconazole [Diflucan TAB] 100 mg PO QDAY #7 tablet 08/04/20 Unknown Rx clonazePAM [ Klonopin] 0.5 mg PO DAILY PRN #15 tab 08/12/20 Unknown Rx risperiDONE [RisperDAL] 0.25 mg PO BID #60 tab 08/12/20 Unknown Rx Omeprazole 40 mg PO DAILY #30 capsule. 08/16/20 Unknown Rx Benzonatate [Tessalon Perles] 100 mg PO Q8HR #30 capsule 02/03/21 Unknown Rx Fluticasone [Flonase] 1 spray NS QDAY #1 bottle 02/03/21 Unknown Rx Cetirizine HCl [Zyrtec 10mg tab] 10 mg PO DAILY #30 tablet 07/22/21 Unknown Rx Fluconazole [Diflucan TAB] 200 mg PO QDAY #1 tablet 07/22/21 Unknown Rx Olopatadine HCl [Patanol 0.1%] 1 drop OP BID #5 ml 07/22/21 Unknown Rx metroNIDAZOLE [Flagyl] 500 mg PO BID 7 Days #14 tab 08/27/21 Unknown Rx Etodolac [Lodine] 400 mg PO BID #20 tablet 08/31/21 Unknown Rx Lidocaine [Lidoderm] 1 each TP BID #1 box 08/31/21 Unknown Rx Albuterol Sulfate [Proair 90 mcg IH Q4HR PRN #2 aer.pow.ba 10/09/21 Unknown Rx Respiclick] Fluticasone [Flonase] 1 spray NS QDAY #1 bottle 10/09/21 Unknown Rx Olopatadine HCl [Patanol 0.1%] 1 drop OP BID #5 ml 10/09/21 Unknown Rx Benzonatate [Tessalon Perles] 100 mg PO Q8HR PRN #12 cap 10/25/21 Unknown Rx Fluticasone [Flonase] 1 spray NS QDAY #1 bottle 10/25/21 Unknown Rx Loratadine 10 mg PO DAILY #30 tab 10/25/21 Unknown Rx guaiFENesin ER [Mucinex ER] 600 mg PO Q12H #14 tab 10/25/21 Unknown Rx Mineral Oil/Petrolatum,White 7 gm OP PRN PRN #1 oint...g. 10/28/21 Unknown Rx [Refresh Lacri-Lube Ointment] Albuterol Mdi (or & Nicu Only) 2 puff IH QID PRN #8.5 gram 11/03/21 Unknown Rx [ProAir HFA Inhaler] Amoxicillin/K Clav Tab [Augmentin 1 tab PO BID 7 Days #14 tab 03/03/22 Unknown Rx 875 mg] Ibuprofen [Motrin 800 MG tab] 800 mg PO Q8HR PRN #30 tablet 03/03/22 Unknown Rx Ketotifen Fumarate [Zaditor] 2 drop OP BID PRN #5 ml 03/03/22 Unknown Rx predniSONE [Deltasone] 20 mg PO QDAY 5 Days #5 tab 03/03/22 Unknown Rx ALBUTEROL NEB's [Proventil 0.083% 2.5 mg IH TID PRN #30 neb 03/04/22 Unknown Rx NEBS] Albuterol Mdi (or & Nicu Only) 1 puff IH Q4-6H PRN #1 inha 03/04/22 Unknown Rx [ProAir HFA Inhaler] Tobramycin 0.3% [Tobrex] 1 drop OU Q8HR #1 bottle 03/04/22 Unknown Rx Allergies Allergy/AdvReac Type Severity Reaction Status Date / Time Sulfa (Sulfonamide Allergy Swelling Verified 10/27/21 22:10 Antibiotics) sulfamethoxazole Allergy Swelling Verified 10/27/21 22:10 [From Bactrim] trimethoprim [From Bactrim] Allergy Swelling Verified 10/27/21 22:10 ziprasidone [From Geodon] Allergy Unknown Verified 10/27/21 22:10 ED Review of Systems ROS: Stated complaint: SOB Other details as noted in HPI Comment: All other systems reviewed and negative ED Past Medical Hx - Past Medical History Previous Medical History?: Yes Hx Hypertension: No Hx Psychiatric Treatment: Yes (PTSD, BIPOLAR, ADHD,anxiety) Hx Asthma: No Hx HIV: Yes (Last CD4 800's 07/19/2019) Additional medical history: ezcema/ STATES "WHATEVER THEY DX ME WITH". - Surgical History Past Surgical History?: Yes Hx Coronary Stent: No Additional Surgical History: D&C. breast implants. wisdom teeth removed. tubal ligation - Social History Smoking Status: Never Smoker Substance Use Type: None (Denies illicit drug use), Alcohol (Occasional) - Medications Home Medications: Home Medications Medication Instructions Recorded Confirmed Last Taken Type QUEtiapine [SEROquel] 200 mg PO QHS #14 tablet 01/04/19 08/04/20 Unknown Rx risperiDONE [RisperDAL] 0.5 mg PO BID #60 tablet 10/26/19 08/04/20 Unknown Rx Bictegrav/Emtricit/Tenofov Ala 1 tab PO DAILY 08/04/20 08/04/20 Unknown History [Biktarvy 50-200-25 mg (Nf)] Fluconazole [Diflucan TAB] 100 mg PO QDAY #7 tablet 08/04/20 Unknown Rx Ondansetron [Zofran Odt] 4 mg PO Q8HR 08/04/20 08/04/20 Unknown History Valacyclovir HCl [Valacyclovir] 500 mg PO DAILY 08/04/20 08/04/20 Unknown History clonazePAM [ Klonopin] 0.5 mg PO DAILY PRN #15 tab 08/12/20 Unknown Rx risperiDONE [RisperDAL] 0.25 mg PO BID #60 tab 08/12/20 Unknown Rx Omeprazole 40 mg PO DAILY #30 capsule. 08/16/20 Unknown Rx Benzonatate [Tessalon Perles] 100 mg PO Q8HR #30 capsule 02/03/21 Unknown Rx Fluticasone [Flonase] 1 spray NS QDAY #1 bottle 02/03/21 Unknown Rx Cetirizine HCl [Zyrtec 10mg tab] 10 mg PO DAILY #30 tablet 07/22/21 Unknown Rx Fluconazole [Diflucan TAB] 200 mg PO QDAY #1 tablet 07/22/21 Unknown Rx Olopatadine HCl [Patanol 0.1%] 1 drop OP BID #5 ml 07/22/21 Unknown Rx metroNIDAZOLE [Flagyl] 500 mg PO BID 7 Days #14 tab 08/27/21 Unknown Rx Etodolac [Lodine] 400 mg PO BID #20 tablet 08/31/21 Unknown Rx Lidocaine [Lidoderm] 1 each TP BID #1 box 08/31/21 Unknown Rx Albuterol Sulfate [Proair 90 mcg IH Q4HR PRN #2 aer.pow.ba 10/09/21 Unknown Rx Respiclick] Fluticasone [Flonase] 1 spray NS QDAY #1 bottle 10/09/21 Unknown Rx Olopatadine HCl [Patanol 0.1%] 1 drop OP BID #5 ml 10/09/21 Unknown Rx Benzonatate [Tessalon Perles] 100 mg PO Q8HR PRN #12 cap 10/25/21 Unknown Rx Fluticasone [Flonase] 1 spray NS QDAY #1 bottle 10/25/21 Unknown Rx Loratadine 10 mg PO DAILY #30 tab 10/25/21 Unknown Rx guaiFENesin ER [Mucinex ER] 600 mg PO Q12H #14 tab 10/25/21 Unknown Rx Mineral Oil/Petrolatum,White 7 gm OP PRN PRN #1 oint...g. 10/28/21 Unknown Rx [Refresh Lacri-Lube Ointment] Albuterol Mdi (or & Nicu Only) 2 puff IH QID PRN #8.5 gram 11/03/21 Unknown Rx [ProAir HFA Inhaler] Amoxicillin/K Clav Tab [Augmentin 1 tab PO BID 7 Days #14 tab 03/03/22 Unknown Rx 875 mg] Ibuprofen [Motrin 800 MG tab] 800 mg PO Q8HR PRN #30 tablet 03/03/22 Unknown Rx Ketotifen Fumarate [Zaditor] 2 drop OP BID PRN #5 ml 03/03/22 Unknown Rx predniSONE [Deltasone] 20 mg PO QDAY 5 Days #5 tab 03/03/22 Unknown Rx ALBUTEROL NEB's [Proventil 0.083% 2.5 mg IH TID PRN #30 neb 03/04/22 Unknown Rx NEBS] Albuterol Mdi (or & Nicu Only) 1 puff IH Q4-6H PRN #1 inha 03/04/22 Unknown Rx [ProAir HFA Inhaler] Tobramycin 0.3% [Tobrex] 1 drop OU Q8HR #1 bottle 03/04/22 Unknown Rx ED Physical Exam - General Limitations: No Limitations General appearance: alert, in no apparent distress - Head Head exam: Present: atraumatic, normocephalic - Eye Eye exam: Present: normal appearance, PERRL, EOMI Pupils: Present: normal accommodation - ENT ENT exam: Present: normal exam, normal orophraynx, mucous membranes moist, TM's normal bilaterally, other (injected conjunctiva with mucus production. ) - Neck Neck exam: Present: normal inspection, full ROM - Respiratory Respiratory exam: Present: normal lung sounds bilaterally. Absent: respiratory distress, wheezes, rales - Cardiovascular Cardiovascular Exam: Present: regular rate, normal rhythm. Absent: bradycardia, tachycardia, systolic murmur, diastolic murmur, rubs, gallop - GI/Abdominal GI/Abdominal exam: Present: soft, normal bowel sounds - Extremities Exam Extremities exam: Present: normal inspection, full ROM, normal capillary refill - Back Exam Back exam: Present: normal inspection. Absent: CVA tenderness (R), CVA tenderness (L) - Neurological Exam Neurological exam: Present: alert, oriented X3, CN II-XII intact, normal gait - Psychiatric Psychiatric exam: Present: normal affect, normal mood. Absent: agitated, anxious - Skin Skin exam: Present: warm, dry, intact, normal color. Absent: rash, diaphoretic, erythema, urticaria ED Course Vital Signs 03/04/22 17:49 Temperature 98.0 F Pulse Rate 88 Respiratory 18 Rate Blood Pressure 118/79 [Left] O2 Sat by Pulse 99 Oximetry Critical care attestation.: If time is entered above; I have spent that time in minutes in the direct care of this critically ill patient, excluding procedure time. ED Disposition Clinical Impression: Asthma, Conjunctivitis Disposition: HOME / SELF CARE / HOMELESS Is pt being admited?: No Does the pt Need Aspirin: No Condition: Stable Instructions: Asthma (ED), Asthma, Adult, Peak Flow Meter, Bacterial Conjunctivitis, Pediatric, Allergic Conjunctivitis, Adult, Chemical Conjunctivitis, Pediatric, Bacterial Conjunctivitis, Adult, [id number] Prescriptions: Albuterol Mdi (or & Nicu Only) [ProAir HFA Inhaler] 1 puff IH Q4-6H PRN #1 inha PRN Reason: Cough ALBUTEROL NEB's [Proventil 0.083% NEBS] 2.5 mg IH TID PRN #30 neb PRN Reason: Wheezing Tobramycin 0.3% [Tobrex] 1 drop OU Q8HR #1 bottle Referrals: [facility] [Provider Group] - 3-5 Days
[2022-03-04 21:01] VITALS: BP 119/85
== END 2022-03-04 21:02 | disposition home or self-care (01) ==
LOC: ED 17:40
DX: J45.909 Unspecified asthma, uncomplicated (principal); H10.9 Unspecified conjunctivitis; Z21 Asymptomatic human immunodeficiency virus [HIV] infection status; Z91.09 Other allergy status, other than to drugs and biological substances; Z88.2 Allergy status to sulfonamides; Z98.890 Other specified postprocedural states; Z79.899 Other long term (current) drug therapy
CPT/HCPCS: 99283

== ENCOUNTER 2022-03-06 21:32 | Emergency (ER) | payer MEDICAID ==
[2022-03-06 21:59] VITALS: BP 130/90
== END 2022-03-06 22:35 | disposition left against medical advice (07) ==
LOC: ED 21:32
DX: H66.92 Otitis media, unspecified, left ear (principal); Z53.21 Procedure and treatment not carried out due to patient leaving prior to being seen by health care provider

== ENCOUNTER 2022-03-09 06:59 | Emergency (ER) | payer MEDICAID ==
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
[2022-03-09 08:53] LABS: Basophils % (Auto) 0.4 % (0.0-1.8); Eosinophils # (Auto) 0.1 K/mm3 (0.0-0.4); Eosinophils % (Auto) 1.8 % (0.0-4.3); Hematocrit 35.6 % (30.3-42.9); Hemoglobin 11.2 gm/dl (10.1-14.3); Lymphocytes # (Auto) 1.4 K/mm3 (1.2-5.4); Lymphocytes % (Auto) 36.3 % (13.4-35.0); Mean Corpuscular HGB Conc 32 % (30-34); Mean Corpuscular Volume 77 fl (79-97); Monocytes # (Auto) 0.5 K/mm3 (0.0-0.8); Monocytes % (Auto) 11.4 % (0.0-7.3); Platelet Count 377 K/mm3 (140-440); Red Blood Count 4.66 M/mm3 (3.65-5.03); Red Cell Distribution Width 16.9 % (13.2-15.2)
[2022-03-09 09:05] LABS: Blood Urea Nitrogen 11 mg/dL (7-17); Hemolysis Index 4
[2022-03-09 09:06] LABS: BUN/Creatinine Ratio 16
[2022-03-09 09:55] LABS: Bilirubin,Urine NEG (Negative); Blood,Urine NEG (Negative); Color,Urine Straw (Yellow); Protein,Urine <15 mg/dL mg/dL (Negative); Urobilinogen,Urine < 2.0 mg/dL (<2.0)
[2022-03-09 10:08] LABS: Benzodiazepines Screen,Urine Negative; Cannabinoid Screen,Urine Negative; Cocaine Screen,Urine Negative; Methadone Screen,Urine Negative; Opiate Screen,Urine Negative
[2022-03-09 10:24] LABS: Amphetamine Screen,Urine Positive
[2022-03-09 11:42] LABS: HCG Qualitative,Urine Negative (Negative)
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
[2022-03-09] MEDS: risperiDONE 0.25 MG TAB PO SCH (20:51)
[2022-03-09] MEDS: FLUoxetine 10 MG TAB PO SCH (20:51)
[2022-03-10 09:47] VITALS: BP 128/86
[2022-03-10] MEDS: risperiDONE 0.25 MG TAB PO SCH (10:50)
[2022-03-10] MEDS: FLUoxetine 10 MG TAB PO SCH (10:50)
--- NOTE | 2022-03-10 10:59 | Progress Note ---
Subjective - Reason for Consult Consult date: 03/10/22 Reason for consult: MDD - Chief Complaint Chief complaint: The patient was seen today. She is calm, and cooperative. The patient says she feels okay and doing better. She says she slept well but had bad dreams. The patient denies SI/HI. She says "no, I'm not but do still hear the voices." I ask the patient was the voices telling her to harm herself. She says "no, just that I'm no good." She says "I hear it all the time." The patient no longer meets inpatient criteria. Will give scripts and resources and have her follow up with outpatient psychiatrist. REVIEW OF SYSTEMS Constitutional: Negative for weight loss ENT: Negative for stridor Respiratory: Negative for cough or hemoptysis All other systems reviewed and are negative MENTAL STATUS EXAMINATION General Appearance: Dressed appropriately Behavior: calm and cooperative, irritable Mood: better, okay Affect and affective range: congruent with mood Thought Process: Goal directed Thought content: hallucinations Speech: Normal tone and pace Suicidal Ideation: Denies Homicidal Ideation: Denies Hallucinations: auditory Delusions: None elicited Insight and Judgment: Limited insight and judgment Memory: Limited Attention: attentive Orientation: Alert, oriented Diagnoses: (1) Major Depressive Disorder Treatment Plan: Risperidone 0.25mg po BID Prozac 10mg po daily Medical: per primary Disposition: Do not Recommend acute psychiatric inpatient treatment. The patient understands that if SI/HI arise she is to seek immediate assistance. The automatic spreader operator is to give the patient all necessary resources Will sign off. Thanks Case staffed with Dr. Coronel Mental Status Exam - Vital signs Last Vital Signs Temp 98.2 F 03/10/22 09:46 Pulse 89 03/10/22 09:46 Resp 20 03/10/22 09:46 BP 128/86 03/10/22 09:46 Pulse Ox 98 03/10/22 09:46
--- NOTE | 2022-03-10 13:01 | Event Note ---
Date: 03/10/22 The patient had no issues overnight. Has remained clinically stable throughout her stay in the emergency department. Psychiatry saw and evaluated and diagnosed with major depressive episode. Patient with discharge at this point in stable condition. The patient is alert active and oriented x3 and making good eye contact. The mood is euethymic with congruent affect. The patient does not seem under the influence of any psychoactive substances. The thought pattern is relevant and coherent. The patient denies suicidal ideations.
== END 2022-03-10 15:05 | disposition home or self-care (01) ==
LOC: EEVIPCON 06:59 → ED 06:59
DX: F29 Unspecified psychosis not due to a substance or known physiological condition (principal); R45.851 Suicidal ideations; H61.21 Impacted cerumen, right ear; Z20.822 Contact with and (suspected) exposure to COVID-19; F31.9 Bipolar disorder, unspecified; F43.10 Post-traumatic stress disorder, unspecified; F90.9 Attention-deficit hyperactivity disorder, unspecified type; F41.9 Anxiety disorder, unspecified; Z98.890 Other specified postprocedural states; Z88.2 Allergy status to sulfonamides; Z88.8 Allergy status to other drugs, medicaments and biological substances
CPT/HCPCS: 36415; 80048; 80307; 81001; 81025; 85025; 99284; U0003; 80320; G0480

== ENCOUNTER 2022-04-01 19:06 | Emergency (ER) | payer MEDICAID ==
[2022-04-01] MEDS ORDERED: ASPIRIN 325 MG TAB PO ONE (20:15)
--- NOTE | 2022-04-01 20:52 | XRay Report ---
CHEST 2 VIEWS INDICATION / CLINICAL INFORMATION: chestpain. COMPARISON: None available. FINDINGS: SUPPORT DEVICES: None. HEART / MEDIASTINUM: No significant abnormality. LUNGS / PLEURA: No significant pulmonary or pleural abnormality. No pneumothorax. ADDITIONAL FINDINGS: No significant additional findings. IMPRESSION: 1. No acute findings. Signer Name: Pilo Tate MD Signed: 04/01/2022 8:48 PM Workstation Name: [id number]
[2022-04-01 21:41] LABS: Alanine Aminotransferase 33 units/L (7-56); Albumin 4.3 g/dL (3.9-5); BUN/Creatinine Ratio 15; Blood Urea Nitrogen 12 mg/dL (7-17); Calcium 9.5 mg/dL (8.4-10.2); Hematocrit 35.3 % (30.3-42.9); Hemoglobin 11.3 gm/dl (10.1-14.3); Hemolysis Index 3; Mean Corpuscular HGB Conc 32 % (30-34); Mean Corpuscular Volume 75 fl (79-97); Platelet Count 431 K/mm3 (140-440); Red Blood Count 4.72 M/mm3 (3.65-5.03); Red Cell Distribution Width 17.7 % (13.2-15.2)
[2022-04-02 01:53] LABS: Hypochromasia 1+; Total Cells Counted 100
[2022-04-02 01:54] LABS: Platelet Estimate Consistent w Auto
--- NOTE | 2022-04-02 08:55 | Emergency Department Report ---
ED General Adult HPI - General Chief complaint: Chest Pain Stated complaint: CHEST PAIN Source: patient, EMS Mode of arrival: Stretcher Limitations: No Limitations - History of Present Illness Initial comments: 41-year-old female presents to the ED complaining of chest pain but pointing to her right shoulder. Patient stated she has a history of asthma and PTSD. Patient denies any shortness of breath ,abdominal pain ,nausea /vomiting or diarrhea. Denies any prior medication to arrival to ED. patient was lying in the bed resting quietly. States pain is a 2 out of 10 but patient was resting with her eyes closed and was easily aroused went into examination room. She is alert and oriented x3. No acute distress noted. No ill appearance noted Severity scale (0 -10): 10 - Related Data Home Medications Medication Instructions Recorded Confirmed Last Taken Bictegrav/Emtricit/Tenofov Ala 1 tab PO DAILY 08/04/20 08/04/20 Unknown [Biktarvy 50-200-25 mg (Nf)] Ondansetron [Zofran Odt] 4 mg PO Q8HR 08/04/20 08/04/20 Unknown Valacyclovir HCl [Valacyclovir] 500 mg PO DAILY 08/04/20 08/04/20 Unknown Previous Rx's Medication Instructions Recorded Last Taken Type QUEtiapine [SEROquel] 200 mg PO QHS #14 tablet 01/04/19 Unknown Rx risperiDONE [RisperDAL] 0.5 mg PO BID #60 tablet 10/26/19 Unknown Rx Fluconazole [Diflucan TAB] 100 mg PO QDAY #7 tablet 08/04/20 Unknown Rx clonazePAM [ Klonopin] 0.5 mg PO DAILY PRN #15 tab 08/12/20 Unknown Rx Omeprazole 40 mg PO DAILY #30 capsule. 08/16/20 Unknown Rx Benzonatate [Tessalon Perles] 100 mg PO Q8HR #30 capsule 02/03/21 Unknown Rx Fluticasone [Flonase] 1 spray NS QDAY #1 bottle 02/03/21 Unknown Rx Cetirizine HCl [Zyrtec 10mg tab] 10 mg PO DAILY #30 tablet 07/22/21 Unknown Rx Fluconazole [Diflucan TAB] 200 mg PO QDAY #1 tablet 07/22/21 Unknown Rx Olopatadine HCl [Patanol 0.1%] 1 drop OP BID #5 ml 07/22/21 Unknown Rx metroNIDAZOLE [Flagyl] 500 mg PO BID 7 Days #14 tab 08/27/21 Unknown Rx Etodolac [Lodine] 400 mg PO BID #20 tablet 08/31/21 Unknown Rx Lidocaine [Lidoderm] 1 each TP BID #1 box 08/31/21 Unknown Rx Albuterol Sulfate [Proair 90 mcg IH Q4HR PRN #2 aer.pow.ba 10/09/21 Unknown Rx Respiclick] Fluticasone [Flonase] 1 spray NS QDAY #1 bottle 10/09/21 Unknown Rx Olopatadine HCl [Patanol 0.1%] 1 drop OP BID #5 ml 10/09/21 Unknown Rx Benzonatate [Tessalon Perles] 100 mg PO Q8HR PRN #12 cap 10/25/21 Unknown Rx Fluticasone [Flonase] 1 spray NS QDAY #1 bottle 10/25/21 Unknown Rx Loratadine 10 mg PO DAILY #30 tab 10/25/21 Unknown Rx guaiFENesin ER [Mucinex ER] 600 mg PO Q12H #14 tab 10/25/21 Unknown Rx Mineral Oil/Petrolatum,White 7 gm OP PRN PRN #1 oint...g. 10/28/21 Unknown Rx [Refresh Lacri-Lube Ointment] Albuterol Mdi (or & Nicu Only) 2 puff IH QID PRN #8.5 gram 11/03/21 Unknown Rx [ProAir HFA Inhaler] Amoxicillin/K Clav Tab [Augmentin 1 tab PO BID 7 Days #14 tab 03/03/22 Unknown Rx 875 mg] Ibuprofen [Motrin 800 MG tab] 800 mg PO Q8HR PRN #30 tablet 03/03/22 Unknown Rx Ketotifen Fumarate [Zaditor] 2 drop OP BID PRN #5 ml 03/03/22 Unknown Rx predniSONE [Deltasone] 20 mg PO QDAY 5 Days #5 tab 03/03/22 Unknown Rx ALBUTEROL NEB's [Proventil 0.083% 2.5 mg IH TID PRN #30 neb 03/04/22 Unknown Rx NEBS] Albuterol Mdi (or & Nicu Only) 1 puff IH Q4-6H PRN #1 inha 03/04/22 Unknown Rx [ProAir HFA Inhaler] Tobramycin 0.3% [Tobrex] 1 drop OU Q8HR #1 bottle 03/04/22 Unknown Rx FLUoxetine [PROzac] 10 mg PO QDAY #30 tablet 03/10/22 Unknown Rx risperiDONE [RisperDAL] 0.25 mg PO BID #60 tab 03/10/22 Unknown Rx Allergies Allergy/AdvReac Type Severity Reaction Status Date / Time Sulfa (Sulfonamide Allergy Swelling Verified 04/02/22 08:13 Antibiotics) sulfamethoxazole Allergy Swelling Verified 04/02/22 08:13 [From Bactrim] trimethoprim [From Bactrim] Allergy Swelling Verified 04/02/22 08:13 ziprasidone [From Geodon] Allergy Unknown Verified 04/02/22 08:13 ED Review of Systems ROS: Stated complaint: CHEST PAIN Other details as noted in HPI ED Past Medical Hx - Past Medical History Previous Medical History?: Yes Hx Hypertension: No Hx Psychiatric Treatment: Yes (PTSD, BIPOLAR, ADHD,anxiety) Hx Asthma: Yes Hx HIV: Yes (Last CD4 800's 07/19/2019) Additional medical history: ezcema/ STATES "WHATEVER THEY DX ME WITH". - Surgical History Past Surgical History?: Yes Hx Coronary Stent: No Additional Surgical History: D&C. breast implants. wisdom teeth removed. tubal ligation - Social History Smoking Status: Never Smoker Substance Use Type: None - Medications Home Medications: Home Medications Medication Instructions Recorded Confirmed Last Taken Type QUEtiapine [SEROquel] 200 mg PO QHS #14 tablet 01/04/19 08/04/20 Unknown Rx risperiDONE [RisperDAL] 0.5 mg PO BID #60 tablet 10/26/19 08/04/20 Unknown Rx Bictegrav/Emtricit/Tenofov Ala 1 tab PO DAILY 08/04/20 08/04/20 Unknown History [Biktarvy 50-200-25 mg (Nf)] Fluconazole [Diflucan TAB] 100 mg PO QDAY #7 tablet 08/04/20 Unknown Rx Ondansetron [Zofran Odt] 4 mg PO Q8HR 08/04/20 08/04/20 Unknown History Valacyclovir HCl [Valacyclovir] 500 mg PO DAILY 08/04/20 08/04/20 Unknown History clonazePAM [ Klonopin] 0.5 mg PO DAILY PRN #15 tab 08/12/20 Unknown Rx Omeprazole 40 mg PO DAILY #30 capsule. 08/16/20 Unknown Rx Benzonatate [Tessalon Perles] 100 mg PO Q8HR #30 capsule 02/03/21 Unknown Rx Fluticasone [Flonase] 1 spray NS QDAY #1 bottle 02/03/21 Unknown Rx Cetirizine HCl [Zyrtec 10mg tab] 10 mg PO DAILY #30 tablet 07/22/21 Unknown Rx Fluconazole [Diflucan TAB] 200 mg PO QDAY #1 tablet 07/22/21 Unknown Rx Olopatadine HCl [Patanol 0.1%] 1 drop OP BID #5 ml 07/22/21 Unknown Rx metroNIDAZOLE [Flagyl] 500 mg PO BID 7 Days #14 tab 08/27/21 Unknown Rx Etodolac [Lodine] 400 mg PO BID #20 tablet 08/31/21 Unknown Rx Lidocaine [Lidoderm] 1 each TP BID #1 box 08/31/21 Unknown Rx Albuterol Sulfate [Proair 90 mcg IH Q4HR PRN #2 aer.pow.ba 10/09/21 Unknown Rx Respiclick] Fluticasone [Flonase] 1 spray NS QDAY #1 bottle 10/09/21 Unknown Rx Olopatadine HCl [Patanol 0.1%] 1 drop OP BID #5 ml 10/09/21 Unknown Rx Benzonatate [Tessalon Perles] 100 mg PO Q8HR PRN #12 cap 10/25/21 Unknown Rx Fluticasone [Flonase] 1 spray NS QDAY #1 bottle 10/25/21 Unknown Rx Loratadine 10 mg PO DAILY #30 tab 10/25/21 Unknown Rx guaiFENesin ER [Mucinex ER] 600 mg PO Q12H #14 tab 10/25/21 Unknown Rx Mineral Oil/Petrolatum,White 7 gm OP PRN PRN #1 oint...g. 10/28/21 Unknown Rx [Refresh Lacri-Lube Ointment] Albuterol Mdi (or & Nicu Only) 2 puff IH QID PRN #8.5 gram 11/03/21 Unknown Rx [ProAir HFA Inhaler] Amoxicillin/K Clav Tab [Augmentin 1 tab PO BID 7 Days #14 tab 03/03/22 Unknown Rx 875 mg] Ibuprofen [Motrin 800 MG tab] 800 mg PO Q8HR PRN #30 tablet 03/03/22 Unknown Rx Ketotifen Fumarate [Zaditor] 2 drop OP BID PRN #5 ml 03/03/22 Unknown Rx predniSONE [Deltasone] 20 mg PO QDAY 5 Days #5 tab 03/03/22 Unknown Rx ALBUTEROL NEB's [Proventil 0.083% 2.5 mg IH TID PRN #30 neb 03/04/22 Unknown Rx NEBS] Albuterol Mdi (or & Nicu Only) 1 puff IH Q4-6H PRN #1 inha 03/04/22 Unknown Rx [ProAir HFA Inhaler] Tobramycin 0.3% [Tobrex] 1 drop OU Q8HR #1 bottle 03/04/22 Unknown Rx FLUoxetine [PROzac] 10 mg PO QDAY #30 tablet 03/10/22 Unknown Rx risperiDONE [RisperDAL] 0.25 mg PO BID #60 tab 03/10/22 Unknown Rx ED Physical Exam - General Limitations: No Limitations ED Course Vital Signs 04/01/22 04/02/22 20:07 08:05 Temperature 98 F 98.2 F Pulse Rate 74 73 Respiratory 18 18 Rate Blood Pressure 144/88 117/50 Blood Pressure 117/50 [Left] O2 Sat by Pulse 98 98 Oximetry ED Medical Decision Making - Lab Data Result diagrams: 04/01/22 20:50 04/01/22 20:50 - EKG Data EKG shows normal: sinus rhythm Rate: normal - EKG Data Interpretation: nonspecific ST-T wave carolyne normal sinus 76 04/02/22 09:06 Critical care attestation.: If time is entered above; I have spent that time in minutes in the direct care of this critically ill patient, excluding procedure time. ED Disposition Clinical Impression: Chest wall tenderness Disposition: 01 HOME / SELF CARE / HOMELESS Is pt being admited?: No Does the pt Need Aspirin: No Condition: Stable Instructions: Chest Wall Pain, [id number], Nonspecific Chest Pain, Adult, [id number] Additional Instructions: Take medication as prescribed Return to ED for any worsening symptom Referrals: ALLAN MCCARTY MD [Primary Care Provider] - 3-5 Days [facility] [Provider Group] - 3-5 Days Forms: Work/School Release Form(ED) Time of Disposition: 09:04
[2022-04-02] MEDS ORDERED: KETOROLAC 30 MG/1 ML INJ IM ONE (08:58)
[2022-04-02 09:38] VITALS: BP 119/65
--- NOTE | 2022-04-02 11:27 | Electrocardiograph Report ---
[facility] Test Date: 2022-04-01 Test Time: 20:19:20 Pat Name: FLORINDA RIVERA Department: Room: Gender: F Joy Operator: ROCK : 1980 Requested By: JUANITA BOOKER Order Number: [id number] Reading MD: Ben Chow Measurements Intervals Maurice Rate: 78 P: 34 IA: 145 QRS: 26 QRSD: 77 T: 28 QT: 403 QTc: 459 Interpretive Statements Sinus rhythm Low voltage, precordial leads Compared to ECG 07/20/2021 06:43:45 Low QRS voltage now present Sinus tachycardia no longer present Electronically Signed On 04-02-2022 11:27:01 EDT by Ben Chow
== END 2022-04-02 09:35 | disposition home or self-care (01) ==
LOC: ED 19:06
DX: R07.9 Chest pain, unspecified (principal); J45.909 Unspecified asthma, uncomplicated; Z21 Asymptomatic human immunodeficiency virus [HIV] infection status; F31.9 Bipolar disorder, unspecified; Z79.899 Other long term (current) drug therapy
CPT/HCPCS: 36415; 71046; 80053; 84484; 85007; 85025; 93005; 96372; 99284; J1885

== ENCOUNTER 2022-04-09 12:30 | Emergency (ER) | payer MEDICAID ==
--- NOTE | 2022-04-09 13:20 | XRay Report ---
CHEST 2 VIEWS INDICATION / CLINICAL INFORMATION: chest pain. FINDINGS: SUPPORT DEVICES: None. HEART / MEDIASTINUM: No significant abnormality. LUNGS / PLEURA: No significant pulmonary or pleural abnormality. No pneumothorax. ADDITIONAL FINDINGS: No significant additional findings. IMPRESSION: 1. No acute findings. Signer Name: Jameson Bear MD Signed: 04/09/2022 1:16 PM Workstation Name: [id number]
[2022-04-09] MEDS ORDERED: ASPIRIN 81 MG TAB CHEW PO ONE (23:05)
[2022-04-09 23:09] VITALS: BP 117/53
--- NOTE | 2022-04-09 23:18 | Emergency Department Report ---
ED General Adult HPI - General Chief complaint: Chest Pain Stated complaint: CHESTPAIN/SEEN HERE 2 DAYS AGO FOR SAME PUI?: No Time Seen by Provider: 04/09/22 22:57 Source: patient Mode of arrival: Ambulatory Limitations: No Limitations - History of Present Illness Initial comments: This is a 41-year-old female with medical history of ADHD, HIV, bipolar came in today with concerns of chest pain for the past 2 days which according to patient she was here 2 days ago. Patient stated the chest pain is a sharp sensation and is localized nothing makes it better and nothing makes it worse. Patient denies any other symptoms and state that she would like a sandwich and that she has not been eating a lot. Patient denies any unintentional weight loss. Right before I left the room patient repeatedly asked for another sandwich. Severity scale (0 -10): 10 - Related Data Home Medications Medication Instructions Recorded Confirmed Last Taken Bictegrav/Emtricit/Tenofov Ala 1 tab PO DAILY 08/04/20 08/04/20 Unknown [Biktarvy 50-200-25 mg (Nf)] Ondansetron [Zofran Odt] 4 mg PO Q8HR 08/04/20 08/04/20 Unknown Valacyclovir HCl [Valacyclovir] 500 mg PO DAILY 08/04/20 08/04/20 Unknown Previous Rx's Medication Instructions Recorded Last Taken Type QUEtiapine [SEROquel] 200 mg PO QHS #14 tablet 01/04/19 Unknown Rx risperiDONE [RisperDAL] 0.5 mg PO BID #60 tablet 10/26/19 Unknown Rx Fluconazole [Diflucan TAB] 100 mg PO QDAY #7 tablet 08/04/20 Unknown Rx clonazePAM [ Klonopin] 0.5 mg PO DAILY PRN #15 tab 08/12/20 Unknown Rx Omeprazole 40 mg PO DAILY #30 capsule. 08/16/20 Unknown Rx Benzonatate [Tessalon Perles] 100 mg PO Q8HR #30 capsule 02/03/21 Unknown Rx Fluticasone [Flonase] 1 spray NS QDAY #1 bottle 02/03/21 Unknown Rx Cetirizine HCl [Zyrtec 10mg tab] 10 mg PO DAILY #30 tablet 07/22/21 Unknown Rx Fluconazole [Diflucan TAB] 200 mg PO QDAY #1 tablet 07/22/21 Unknown Rx Olopatadine HCl [Patanol 0.1%] 1 drop OP BID #5 ml 07/22/21 Unknown Rx metroNIDAZOLE [Flagyl] 500 mg PO BID 7 Days #14 tab 08/27/21 Unknown Rx Etodolac [Lodine] 400 mg PO BID #20 tablet 08/31/21 Unknown Rx Lidocaine [Lidoderm] 1 each TP BID #1 box 08/31/21 Unknown Rx Albuterol Sulfate [Proair 90 mcg IH Q4HR PRN #2 aer.pow.ba 10/09/21 Unknown Rx Respiclick] Fluticasone [Flonase] 1 spray NS QDAY #1 bottle 10/09/21 Unknown Rx Olopatadine HCl [Patanol 0.1%] 1 drop OP BID #5 ml 10/09/21 Unknown Rx Benzonatate [Tessalon Perles] 100 mg PO Q8HR PRN #12 cap 10/25/21 Unknown Rx Fluticasone [Flonase] 1 spray NS QDAY #1 bottle 10/25/21 Unknown Rx Loratadine 10 mg PO DAILY #30 tab 10/25/21 Unknown Rx guaiFENesin ER [Mucinex ER] 600 mg PO Q12H #14 tab 10/25/21 Unknown Rx Mineral Oil/Petrolatum,White 7 gm OP PRN PRN #1 oint...g. 10/28/21 Unknown Rx [Refresh Lacri-Lube Ointment] Albuterol Mdi (or & Nicu Only) 2 puff IH QID PRN #8.5 gram 11/03/21 Unknown Rx [ProAir HFA Inhaler] Amoxicillin/K Clav Tab [Augmentin 1 tab PO BID 7 Days #14 tab 03/03/22 Unknown Rx 875 mg] Ibuprofen [Motrin 800 MG tab] 800 mg PO Q8HR PRN #30 tablet 03/03/22 Unknown Rx Ketotifen Fumarate [Zaditor] 2 drop OP BID PRN #5 ml 03/03/22 Unknown Rx predniSONE [Deltasone] 20 mg PO QDAY 5 Days #5 tab 03/03/22 Unknown Rx ALBUTEROL NEB's [Proventil 0.083% 2.5 mg IH TID PRN #30 neb 03/04/22 Unknown Rx NEBS] Albuterol Mdi (or & Nicu Only) 1 puff IH Q4-6H PRN #1 inha 03/04/22 Unknown Rx [ProAir HFA Inhaler] Tobramycin 0.3% [Tobrex] 1 drop OU Q8HR #1 bottle 03/04/22 Unknown Rx FLUoxetine [PROzac] 10 mg PO QDAY #30 tablet 03/10/22 Unknown Rx risperiDONE [RisperDAL] 0.25 mg PO BID #60 tab 03/10/22 Unknown Rx Allergies Allergy/AdvReac Type Severity Reaction Status Date / Time Sulfa (Sulfonamide Allergy Swelling Verified 04/02/22 08:13 Antibiotics) sulfamethoxazole Allergy Swelling Verified 04/02/22 08:13 [From Bactrim] trimethoprim [From Bactrim] Allergy Swelling Verified 04/02/22 08:13 ziprasidone [From Geodon] Allergy Unknown Verified 04/02/22 08:13 ED Review of Systems ROS: Stated complaint: CHESTPAIN/SEEN HERE 2 DAYS AGO FOR SAME Other details as noted in HPI Comment: All other systems reviewed and negative Constitutional: no symptoms reported, see HPI Eyes: as per HPI ENT: as per HPI Respiratory: no symptoms reported Cardiovascular: chest pain. denies: palpitations, dyspnea on exertion, orthopnea, edema, syncope, paroxysmal nocturnal dyspnea Endocrine: no symptoms reported, see HPI Gastrointestinal: as per HPI Genitourinary: as per HPI Musculoskeletal: as per HPI Skin: as per HPI Neurological: as per HPI Psychiatric: as per HPI Hematological/Lymphatic: as per HPI ED Past Medical Hx - Past Medical History Previous Medical History?: Yes Hx Hypertension: No Hx Psychiatric Treatment: Yes (PTSD, BIPOLAR, ADHD,anxiety) Hx Asthma: Yes Hx HIV: Yes (Last CD4 800's 07/19/2019) Additional medical history: ezcema/ STATES "WHATEVER THEY DX ME WITH". - Surgical History Past Surgical History?: Yes Hx Coronary Stent: No Additional Surgical History: D&C. breast implants. wisdom teeth removed. tubal ligation - Social History Smoking Status: Never Smoker - Medications Home Medications: Home Medications Medication Instructions Recorded Confirmed Last Taken Type QUEtiapine [SEROquel] 200 mg PO QHS #14 tablet 01/04/19 08/04/20 Unknown Rx risperiDONE [RisperDAL] 0.5 mg PO BID #60 tablet 10/26/19 08/04/20 Unknown Rx Bictegrav/Emtricit/Tenofov Ala 1 tab PO DAILY 08/04/20 08/04/20 Unknown History [Biktarvy 50-200-25 mg (Nf)] Fluconazole [Diflucan TAB] 100 mg PO QDAY #7 tablet 08/04/20 Unknown Rx Ondansetron [Zofran Odt] 4 mg PO Q8HR 08/04/20 08/04/20 Unknown History Valacyclovir HCl [Valacyclovir] 500 mg PO DAILY 08/04/20 08/04/20 Unknown History clonazePAM [ Klonopin] 0.5 mg PO DAILY PRN #15 tab 08/12/20 Unknown Rx Omeprazole 40 mg PO DAILY #30 capsule. 08/16/20 Unknown Rx Benzonatate [Tessalon Perles] 100 mg PO Q8HR #30 capsule 02/03/21 Unknown Rx Fluticasone [Flonase] 1 spray NS QDAY #1 bottle 02/03/21 Unknown Rx Cetirizine HCl [Zyrtec 10mg tab] 10 mg PO DAILY #30 tablet 07/22/21 Unknown Rx Fluconazole [Diflucan TAB] 200 mg PO QDAY #1 tablet 07/22/21 Unknown Rx Olopatadine HCl [Patanol 0.1%] 1 drop OP BID #5 ml 07/22/21 Unknown Rx metroNIDAZOLE [Flagyl] 500 mg PO BID 7 Days #14 tab 08/27/21 Unknown Rx Etodolac [Lodine] 400 mg PO BID #20 tablet 08/31/21 Unknown Rx Lidocaine [Lidoderm] 1 each TP BID #1 box 08/31/21 Unknown Rx Albuterol Sulfate [Proair 90 mcg IH Q4HR PRN #2 aer.pow.ba 10/09/21 Unknown Rx Respiclick] Fluticasone [Flonase] 1 spray NS QDAY #1 bottle 10/09/21 Unknown Rx Olopatadine HCl [Patanol 0.1%] 1 drop OP BID #5 ml 10/09/21 Unknown Rx Benzonatate [Tessalon Perles] 100 mg PO Q8HR PRN #12 cap 10/25/21 Unknown Rx Fluticasone [Flonase] 1 spray NS QDAY #1 bottle 10/25/21 Unknown Rx Loratadine 10 mg PO DAILY #30 tab 10/25/21 Unknown Rx guaiFENesin ER [Mucinex ER] 600 mg PO Q12H #14 tab 10/25/21 Unknown Rx Mineral Oil/Petrolatum,White 7 gm OP PRN PRN #1 oint...g. 10/28/21 Unknown Rx [Refresh Lacri-Lube Ointment] Albuterol Mdi (or & Nicu Only) 2 puff IH QID PRN #8.5 gram 11/03/21 Unknown Rx [ProAir HFA Inhaler] Amoxicillin/K Clav Tab [Augmentin 1 tab PO BID 7 Days #14 tab 03/03/22 Unknown Rx 875 mg] Ibuprofen [Motrin 800 MG tab] 800 mg PO Q8HR PRN #30 tablet 03/03/22 Unknown Rx Ketotifen Fumarate [Zaditor] 2 drop OP BID PRN #5 ml 03/03/22 Unknown Rx predniSONE [Deltasone] 20 mg PO QDAY 5 Days #5 tab 03/03/22 Unknown Rx ALBUTEROL NEB's [Proventil 0.083% 2.5 mg IH TID PRN #30 neb 03/04/22 Unknown Rx NEBS] Albuterol Mdi (or & Nicu Only) 1 puff IH Q4-6H PRN #1 inha 03/04/22 Unknown Rx [ProAir HFA Inhaler] Tobramycin 0.3% [Tobrex] 1 drop OU Q8HR #1 bottle 03/04/22 Unknown Rx FLUoxetine [PROzac] 10 mg PO QDAY #30 tablet 03/10/22 Unknown Rx risperiDONE [RisperDAL] 0.25 mg PO BID #60 tab 03/10/22 Unknown Rx ED Physical Exam - General Limitations: No Limitations General appearance: alert, in no apparent distress - Head Head exam: Present: atraumatic, normocephalic, normal inspection - Eye Eye exam: Present: normal appearance, PERRL, EOMI Pupils: Present: normal accommodation - ENT ENT exam: Present: normal exam - Neck Neck exam: Present: normal inspection, full ROM - Respiratory Respiratory exam: Present: normal lung sounds bilaterally - Cardiovascular Cardiovascular Exam: Present: regular rate, normal rhythm, normal heart sounds - GI/Abdominal GI/Abdominal exam: Present: soft - Extremities Exam Extremities exam: Present: normal inspection, full ROM, normal capillary refill - Back Exam Back exam: Present: normal inspection, full ROM - Neurological Exam Neurological exam: Present: alert, altered, oriented X3, CN II-XII intact - Psychiatric Psychiatric exam: Present: normal affect, normal mood - Skin Skin exam: Present: normal color ED Course Vital Signs 04/09/22 04/09/22 04/09/22 12:37 22:55 23:02 Temperature 98.5 F 98 F 98 F Pulse Rate 75 56 L 82 Respiratory 16 18 20 Rate Blood Pressure 117/53 Blood Pressure 140/90 117/65 [Left] O2 Sat by Pulse 99 100 99 Oximetry ED Medical Decision Making - Lab Data Result diagrams: 04/09/22 23:20 04/09/22 23:20 - EKG Data -: EKG Interpreted by Me EKG shows normal: sinus rhythm Rate: normal - EKG Data When compared to previous EKG there are: no significant change Interpretation: no acute changes, normal EKG 04/09/22 23:18 SINUS RICKEY AT 58 BPM; NO ST ELEVATION OR DEPRESSION. - Medical Decision Making HEART SCORE = 0; INFORMED TO FOLLOW UP WITH PCP WITHIN 2 DAYS FOR FURTHER O UTPATIENT NON-CARDIAC CHEST PAIN WORK UP. RETURN TO ER IF ANY NEW SYMPTOMS. Critical care attestation.: If time is entered above; I have spent that time in minutes in the direct care of this critically ill patient, excluding procedure time. ED Disposition Clinical Impression: Non-cardiac chest pain Disposition: HOME / SELF CARE / HOMELESS Is pt being admited?: No Does the pt Need Aspirin: No Condition: Stable Instructions: Nonspecific Chest Pain, Adult Time of Disposition: 01:59
[2022-04-09 23:28] LABS: Hematocrit 37.2 % (30.3-42.9); Hemoglobin 11.5 gm/dl (10.1-14.3); Mean Corpuscular HGB Conc 31 % (30-34); Mean Corpuscular Volume 77 fl (79-97); Platelet Count 361 K/mm3 (140-440); Red Blood Count 4.86 M/mm3 (3.65-5.03); Red Cell Distribution Width 18.1 % (13.2-15.2)
[2022-04-10 00:43] LABS: Creatine Kinase MB 1.7 ng/mL (0.0-4.0)
[2022-04-10 00:44] LABS: BUN/Creatinine Ratio 8; Blood Urea Nitrogen 6 mg/dL (7-17); Calcium 9.3 mg/dL (8.4-10.2); Hemolysis Index 16
--- NOTE | 2022-04-11 10:39 | Electrocardiograph Report ---
[facility] Test Date: 2022-04-09 Test Time: 12:50:59 Pat Name: FLORINDA RIVERA Department: Room: Gender: F [employer] Department Chair: LIZETTE : 1980 Requested By: ED DOC Order Number: [id number] Reading MD: Rayo Pickett Measurements Intervals [place] Rate: 58 P: 19 CT: 151 QRS: 4 QRSD: 75 T: 17 QT: 425 QTc: 418 Interpretive Statements Sinus bradycardia Low voltage, precordial leads Compared to ECG 04/01/2022 20:19:20 Sinus rate has slowed Electronically Signed On 04-11-2022 10:39:00 EDT by Rayo Pickett
--- NOTE | 2022-04-11 10:40 | Electrocardiograph Report ---
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
== END 2022-04-10 03:31 | disposition home or self-care (01) ==
LOC: ED 12:30
DX: R07.9 Chest pain, unspecified (principal); F31.9 Bipolar disorder, unspecified; J45.909 Unspecified asthma, uncomplicated; Z20.2 Contact with and (suspected) exposure to infections with a predominantly sexual mode of transmission; Z88.1 Allergy status to other antibiotic agents; Z88.6 Allergy status to analgesic agent; Z79.899 Other long term (current) drug therapy
CPT/HCPCS: 36415; 71046; 80048; 82550; 82553; 84484; 85027; 93005; 99284

== ENCOUNTER 2022-05-01 23:51 | Emergency (ER) | payer MEDICAID ==
[2022-05-02 00:10] VITALS: BP 149/82
--- NOTE | 2022-05-02 02:03 | Emergency Department Report ---
ED Eye Problem HPI - General Chief complaint: Eye Problems Stated complaint: LEFT EYE IRRITATION Time Seen by Provider: 05/02/22 01:11 Source: patient Mode of arrival: Ambulatory Limitations: No Limitations - History of Present Illness Initial comments: 39-year-old female presents emerged part with complaint of left pain irritation and reports a possible foreign body as she feels some discomfort when she blinks and patient ports no blurred vision, no no eye pain MD chief complaint: eye redness - Related Data Home Medications Medication Instructions Recorded Confirmed Last Taken Bictegrav/Emtricit/Tenofov Ala 1 tab PO DAILY 08/04/20 08/04/20 Unknown [Biktarvy 50-200-25 mg (Nf)] Ondansetron [Zofran Odt] 4 mg PO Q8HR 08/04/20 08/04/20 Unknown Valacyclovir HCl [Valacyclovir] 500 mg PO DAILY 08/04/20 08/04/20 Unknown Previous Rx's Medication Instructions Recorded Last Taken Type QUEtiapine [SEROquel] 200 mg PO QHS #14 tablet 01/04/19 Unknown Rx risperiDONE [RisperDAL] 0.5 mg PO BID #60 tablet 10/26/19 Unknown Rx Fluconazole [Diflucan TAB] 100 mg PO QDAY #7 tablet 08/04/20 Unknown Rx clonazePAM [ Klonopin] 0.5 mg PO DAILY PRN #15 tab 08/12/20 Unknown Rx Omeprazole 40 mg PO DAILY #30 capsule. 08/16/20 Unknown Rx Benzonatate [Tessalon Perles] 100 mg PO Q8HR #30 capsule 02/03/21 Unknown Rx Fluticasone [Flonase] 1 spray NS QDAY #1 bottle 02/03/21 Unknown Rx Cetirizine HCl [Zyrtec 10mg tab] 10 mg PO DAILY #30 tablet 07/22/21 Unknown Rx Fluconazole [Diflucan TAB] 200 mg PO QDAY #1 tablet 07/22/21 Unknown Rx Olopatadine HCl [Patanol 0.1%] 1 drop OP BID #5 ml 07/22/21 Unknown Rx metroNIDAZOLE [Flagyl] 500 mg PO BID 7 Days #14 tab 08/27/21 Unknown Rx Etodolac [Lodine] 400 mg PO BID #20 tablet 08/31/21 Unknown Rx Lidocaine [Lidoderm] 1 each TP BID #1 box 08/31/21 Unknown Rx Albuterol Sulfate [Proair 90 mcg IH Q4HR PRN #2 aer.pow.ba 10/09/21 Unknown Rx Respiclick] Fluticasone [Flonase] 1 spray NS QDAY #1 bottle 10/09/21 Unknown Rx Olopatadine HCl [Patanol 0.1%] 1 drop OP BID #5 ml 10/09/21 Unknown Rx Benzonatate [Tessalon Perles] 100 mg PO Q8HR PRN #12 cap 10/25/21 Unknown Rx Fluticasone [Flonase] 1 spray NS QDAY #1 bottle 10/25/21 Unknown Rx Loratadine 10 mg PO DAILY #30 tab 10/25/21 Unknown Rx guaiFENesin ER [Mucinex ER] 600 mg PO Q12H #14 tab 10/25/21 Unknown Rx Mineral Oil/Petrolatum,White 7 gm OP PRN PRN #1 oint...g. 10/28/21 Unknown Rx [Refresh Lacri-Lube Ointment] Albuterol Mdi (or & Nicu Only) 2 puff IH QID PRN #8.5 gram 11/03/21 Unknown Rx [ProAir HFA Inhaler] Amoxicillin/K Clav Tab [Augmentin 1 tab PO BID 7 Days #14 tab 03/03/22 Unknown Rx 875 mg] Ibuprofen [Motrin 800 MG tab] 800 mg PO Q8HR PRN #30 tablet 03/03/22 Unknown Rx Ketotifen Fumarate [Zaditor] 2 drop OP BID PRN #5 ml 03/03/22 Unknown Rx predniSONE [Deltasone] 20 mg PO QDAY 5 Days #5 tab 03/03/22 Unknown Rx ALBUTEROL NEB's [Proventil 0.083% 2.5 mg IH TID PRN #30 neb 03/04/22 Unknown Rx NEBS] Albuterol Mdi (or & Nicu Only) 1 puff IH Q4-6H PRN #1 inha 03/04/22 Unknown Rx [ProAir HFA Inhaler] Tobramycin 0.3% [Tobrex] 1 drop OU Q8HR #1 bottle 03/04/22 Unknown Rx FLUoxetine [PROzac] 10 mg PO QDAY #30 tablet 03/10/22 Unknown Rx risperiDONE [RisperDAL] 0.25 mg PO BID #60 tab 03/10/22 Unknown Rx Ketorolac Tromethamin 0.4%(Nf) 1 drop OP QID #1 bottle 05/02/22 Unknown Rx [Acular Ls 0.4% Ophth Elida] Tobramycin 0.3% [Tobrex] 1 drop OU Q8HR #1 bottle 05/02/22 Unknown Rx Allergies Allergy/AdvReac Type Severity Reaction Status Date / Time Sulfa (Sulfonamide Allergy Swelling Verified 04/02/22 08:13 Antibiotics) sulfamethoxazole Allergy Swelling Verified 04/02/22 08:13 [From Bactrim] trimethoprim [From Bactrim] Allergy Swelling Verified 04/02/22 08:13 ziprasidone [From Geodon] Allergy Unknown Verified 04/02/22 08:13 ED Review of Systems ROS: Stated complaint: LEFT EYE IRRITATION Other details as noted in HPI Comment: All other systems reviewed and negative ED Past Medical Hx - Past Medical History Hx Hypertension: No Hx Psychiatric Treatment: Yes (PTSD, BIPOLAR, ADHD,anxiety) Hx Asthma: Yes Hx HIV: Yes (Last CD4 800's 07/19/2019) Additional medical history: ezcema/ STATES "WHATEVER THEY DX ME WITH". - Surgical History Hx Coronary Stent: No Additional Surgical History: D&C. breast implants. wisdom teeth removed. tubal ligation - Social History Smoking Status: Unknown if ever smoked - Medications Home Medications: Home Medications Medication Instructions Recorded Confirmed Last Taken Type QUEtiapine [SEROquel] 200 mg PO QHS #14 tablet 01/04/19 08/04/20 Unknown Rx risperiDONE [RisperDAL] 0.5 mg PO BID #60 tablet 10/26/19 08/04/20 Unknown Rx Bictegrav/Emtricit/Tenofov Ala 1 tab PO DAILY 08/04/20 08/04/20 Unknown History [Biktarvy 50-200-25 mg (Nf)] Fluconazole [Diflucan TAB] 100 mg PO QDAY #7 tablet 08/04/20 Unknown Rx Ondansetron [Zofran Odt] 4 mg PO Q8HR 08/04/20 08/04/20 Unknown History Valacyclovir HCl [Valacyclovir] 500 mg PO DAILY 08/04/20 08/04/20 Unknown History clonazePAM [ Klonopin] 0.5 mg PO DAILY PRN #15 tab 08/12/20 Unknown Rx Omeprazole 40 mg PO DAILY #30 capsule. 08/16/20 Unknown Rx Benzonatate [Tessalon Perles] 100 mg PO Q8HR #30 capsule 02/03/21 Unknown Rx Fluticasone [Flonase] 1 spray NS QDAY #1 bottle 02/03/21 Unknown Rx Cetirizine HCl [Zyrtec 10mg tab] 10 mg PO DAILY #30 tablet 07/22/21 Unknown Rx Fluconazole [Diflucan TAB] 200 mg PO QDAY #1 tablet 07/22/21 Unknown Rx Olopatadine HCl [Patanol 0.1%] 1 drop OP BID #5 ml 07/22/21 Unknown Rx metroNIDAZOLE [Flagyl] 500 mg PO BID 7 Days #14 tab 08/27/21 Unknown Rx Etodolac [Lodine] 400 mg PO BID #20 tablet 08/31/21 Unknown Rx Lidocaine [Lidoderm] 1 each TP BID #1 box 08/31/21 Unknown Rx Albuterol Sulfate [Proair 90 mcg IH Q4HR PRN #2 aer.pow.ba 10/09/21 Unknown Rx Respiclick] Fluticasone [Flonase] 1 spray NS QDAY #1 bottle 10/09/21 Unknown Rx Olopatadine HCl [Patanol 0.1%] 1 drop OP BID #5 ml 10/09/21 Unknown Rx Benzonatate [Tessalon Perles] 100 mg PO Q8HR PRN #12 cap 10/25/21 Unknown Rx Fluticasone [Flonase] 1 spray NS QDAY #1 bottle 10/25/21 Unknown Rx Loratadine 10 mg PO DAILY #30 tab 10/25/21 Unknown Rx guaiFENesin ER [Mucinex ER] 600 mg PO Q12H #14 tab 10/25/21 Unknown Rx Mineral Oil/Petrolatum,White 7 gm OP PRN PRN #1 oint...g. 10/28/21 Unknown Rx [Refresh Lacri-Lube Ointment] Albuterol Mdi (or & Nicu Only) 2 puff IH QID PRN #8.5 gram 11/03/21 Unknown Rx [ProAir HFA Inhaler] Amoxicillin/K Clav Tab [Augmentin 1 tab PO BID 7 Days #14 tab 03/03/22 Unknown Rx 875 mg] Ibuprofen [Motrin 800 MG tab] 800 mg PO Q8HR PRN #30 tablet 03/03/22 Unknown Rx Ketotifen Fumarate [Zaditor] 2 drop OP BID PRN #5 ml 03/03/22 Unknown Rx predniSONE [Deltasone] 20 mg PO QDAY 5 Days #5 tab 03/03/22 Unknown Rx ALBUTEROL NEB's [Proventil 0.083% 2.5 mg IH TID PRN #30 neb 03/04/22 Unknown Rx NEBS] Albuterol Mdi (or & Nicu Only) 1 puff IH Q4-6H PRN #1 inha 03/04/22 Unknown Rx [ProAir HFA Inhaler] Tobramycin 0.3% [Tobrex] 1 drop OU Q8HR #1 bottle 03/04/22 Unknown Rx FLUoxetine [PROzac] 10 mg PO QDAY #30 tablet 03/10/22 Unknown Rx risperiDONE [RisperDAL] 0.25 mg PO BID #60 tab 03/10/22 Unknown Rx Ketorolac Tromethamin 0.4%(Nf) 1 drop OP QID #1 bottle 05/02/22 Unknown Rx [Acular Ls 0.4% Ophth Elida] Tobramycin 0.3% [Tobrex] 1 drop OU Q8HR #1 bottle 05/02/22 Unknown Rx ED Physical Exam - General Limitations: No Limitations General appearance: alert, in no apparent distress - Head Head exam: Present: atraumatic, normocephalic - Eye Eye exam: Present: normal appearance, PERRL, conjunctival injection, other (Normal funduscopic examination. No increased fluorescein uptake brought back foreign body was visualized and removed but no corneal damage. Large eyelash glue towards the border with some overhang likely also contributing to corneal irritation) Pupils: Present: normal accommodation - ENT ENT exam: Present: mucous membranes moist - Neck Neck exam: Present: normal inspection - Respiratory Respiratory exam: Present: normal lung sounds bilaterally. Absent: respiratory distress - Cardiovascular Cardiovascular Exam: Present: regular rate, normal rhythm. Absent: systolic murmur, diastolic murmur, rubs, gallop - GI/Abdominal GI/Abdominal exam: Present: soft, normal bowel sounds - Extremities Exam Extremities exam: Present: normal inspection - Back Exam Back exam: Present: normal inspection - Neurological Exam Neurological exam: Present: alert, oriented X3 - Psychiatric Psychiatric exam: Present: normal affect, normal mood - Skin Skin exam: Present: warm, dry, intact, normal color. Absent: rash ED Course Vital Signs 05/02/22 00:04 Temperature 97.9 F Pulse Rate 77 Respiratory 16 Rate Blood Pressure 149/82 Blood Pressure 142/82 [Right] O2 Sat by Pulse 100 Oximetry Critical care attestation.: If time is entered above; I have spent that time in minutes in the direct care of this critically ill patient, excluding procedure time. ED Disposition Clinical Impression: Conjunctivitis Disposition: HOME / SELF CARE / HOMELESS Is pt being admited?: No Does the pt Need Aspirin: No Condition: Stable Instructions: How to Use Eye Drops and Eye Ointments Prescriptions: Ketorolac Tromethamin 0.4%(Nf) [Acular Ls 0.4% Ophth Elida] 1 drop OP QID #1 bottle Tobramycin 0.3% [Tobrex] 1 drop OU Q8HR #1 bottle Referrals: [facility] [Provider Group] - 3-5 Days
== END 2022-05-02 02:30 | disposition home or self-care (01) ==
LOC: ED 23:51
DX: H10.9 Unspecified conjunctivitis (principal); F43.10 Post-traumatic stress disorder, unspecified; F31.9 Bipolar disorder, unspecified; F90.9 Attention-deficit hyperactivity disorder, unspecified type; F41.9 Anxiety disorder, unspecified; J45.909 Unspecified asthma, uncomplicated; Z21 Asymptomatic human immunodeficiency virus [HIV] infection status; Z98.890 Other specified postprocedural states; Z88.2 Allergy status to sulfonamides; Z88.8 Allergy status to other drugs, medicaments and biological substances
CPT/HCPCS: 99282

== ENCOUNTER 2022-05-03 10:57 | Emergency (ER) | payer MEDICAID ==
[2022-05-03 10:59] VITALS: BP 150/90
== END 2022-05-03 14:00 | disposition left against medical advice (07) ==
LOC: ED 10:57
DX: H57.12 Ocular pain, left eye (principal); Z53.21 Procedure and treatment not carried out due to patient leaving prior to being seen by health care provider

== ENCOUNTER 2022-06-15 22:25 | Emergency (ER) | payer MEDICAID ==
--- NOTE | 2022-06-16 06:40 | Emergency Department Report ---
ED ENT HPI - General Chief complaint: Earache Stated complaint: EAR PAIN X 2 DAYS Time Seen by Provider: 06/16/22 06:33 Source: patient, EMS Mode of arrival: Stretcher Limitations: No Limitations - History of Present Illness Initial comments: C/O OF FB IN RIGHT EAR. WAS SEEN AT [facility] AND ADVISED OF THE BUILDUP. PRESNTS TO ER TODAY BECAUSE SHE THINKS HER EARRING BACK IS IN HER CANAL. NO BLEEDING, DISCHARGE OR PAIN. MD complaint: ear pain -: Gradual Location: R ear Severity: moderate Quality: dull Consistency: constant Improves with: none Worsens with: none - Related Data Home Medications Medication Instructions Recorded Confirmed Last Taken Bictegrav/Emtricit/Tenofov Ala 1 tab PO DAILY 08/04/20 08/04/20 Unknown [Biktarvy 50-200-25 mg (Nf)] Ondansetron [Zofran Odt] 4 mg PO Q8HR 08/04/20 08/04/20 Unknown Valacyclovir HCl [Valacyclovir] 500 mg PO DAILY 08/04/20 08/04/20 Unknown Previous Rx's Medication Instructions Recorded Last Taken Type QUEtiapine [SEROquel] 200 mg PO QHS #14 tablet 01/04/19 Unknown Rx risperiDONE [RisperDAL] 0.5 mg PO BID #60 tablet 10/26/19 Unknown Rx Fluconazole [Diflucan TAB] 100 mg PO QDAY #7 tablet 08/04/20 Unknown Rx clonazePAM [ Klonopin] 0.5 mg PO DAILY PRN #15 tab 08/12/20 Unknown Rx Omeprazole 40 mg PO DAILY #30 capsule. 08/16/20 Unknown Rx Benzonatate [Tessalon Perles] 100 mg PO Q8HR #30 capsule 02/03/21 Unknown Rx Fluticasone [Flonase] 1 spray NS QDAY #1 bottle 02/03/21 Unknown Rx Cetirizine HCl [Zyrtec 10mg tab] 10 mg PO DAILY #30 tablet 07/22/21 Unknown Rx Fluconazole [Diflucan TAB] 200 mg PO QDAY #1 tablet 07/22/21 Unknown Rx Olopatadine HCl [Patanol 0.1%] 1 drop OP BID #5 ml 07/22/21 Unknown Rx metroNIDAZOLE [Flagyl] 500 mg PO BID 7 Days #14 tab 08/27/21 Unknown Rx Etodolac [Lodine] 400 mg PO BID #20 tablet 08/31/21 Unknown Rx Lidocaine [Lidoderm] 1 each TP BID #1 box 08/31/21 Unknown Rx Albuterol Sulfate [Proair 90 mcg IH Q4HR PRN #2 aer.pow.ba 10/09/21 Unknown Rx Respiclick] Fluticasone [Flonase] 1 spray NS QDAY #1 bottle 10/09/21 Unknown Rx Olopatadine HCl [Patanol 0.1%] 1 drop OP BID #5 ml 10/09/21 Unknown Rx Benzonatate [Tessalon Perles] 100 mg PO Q8HR PRN #12 cap 10/25/21 Unknown Rx Fluticasone [Flonase] 1 spray NS QDAY #1 bottle 10/25/21 Unknown Rx Loratadine 10 mg PO DAILY #30 tab 10/25/21 Unknown Rx guaiFENesin ER [Mucinex ER] 600 mg PO Q12H #14 tab 10/25/21 Unknown Rx Mineral Oil/Petrolatum,White 7 gm OP PRN PRN #1 oint...g. 10/28/21 Unknown Rx [Refresh Lacri-Lube Ointment] Albuterol Mdi (or & Nicu Only) 2 puff IH QID PRN #8.5 gram 11/03/21 Unknown Rx [ProAir HFA Inhaler] Amoxicillin/K Clav Tab [Augmentin 1 tab PO BID 7 Days #14 tab 03/03/22 Unknown Rx 875 mg] Ibuprofen [Motrin 800 MG tab] 800 mg PO Q8HR PRN #30 tablet 03/03/22 Unknown Rx Ketotifen Fumarate [Zaditor] 2 drop OP BID PRN #5 ml 03/03/22 Unknown Rx predniSONE [Deltasone] 20 mg PO QDAY 5 Days #5 tab 03/03/22 Unknown Rx ALBUTEROL NEB's [Proventil 0.083% 2.5 mg IH TID PRN #30 neb 03/04/22 Unknown Rx NEBS] Albuterol Mdi (or & Nicu Only) 1 puff IH Q4-6H PRN #1 inha 03/04/22 Unknown Rx [ProAir HFA Inhaler] Tobramycin 0.3% [Tobrex] 1 drop OU Q8HR #1 bottle 03/04/22 Unknown Rx FLUoxetine [PROzac] 10 mg PO QDAY #30 tablet 03/10/22 Unknown Rx risperiDONE [RisperDAL] 0.25 mg PO BID #60 tab 03/10/22 Unknown Rx Ketorolac Tromethamin 0.4%(Nf) 1 drop OP QID #1 bottle 05/02/22 Unknown Rx [Acular Ls 0.4% Ophth Elida] Tobramycin 0.3% [Tobrex] 1 drop OU Q8HR #1 bottle 05/02/22 Unknown Rx Allergies Allergy/AdvReac Type Severity Reaction Status Date / Time Sulfa (Sulfonamide Allergy Swelling Verified 05/03/22 10:59 Antibiotics) sulfamethoxazole Allergy Swelling Verified 05/03/22 10:59 [From Bactrim] trimethoprim [From Bactrim] Allergy Swelling Verified 05/03/22 10:59 ziprasidone [From Geodon] Allergy Unknown Verified 05/03/22 10:59 ED Dental HPI - General Chief complaint: Earache Stated complaint: EAR PAIN X 2 DAYS Time Seen by Provider: 06/16/22 06:33 Source: patient, EMS Mode of arrival: Stretcher Limitations: No Limitations - Related Data Home Medications Medication Instructions Recorded Confirmed Last Taken Bictegrav/Emtricit/Tenofov Ala 1 tab PO DAILY 08/04/20 08/04/20 Unknown [Biktarvy 50-200-25 mg (Nf)] Ondansetron [Zofran Odt] 4 mg PO Q8HR 08/04/20 08/04/20 Unknown Valacyclovir HCl [Valacyclovir] 500 mg PO DAILY 08/04/20 08/04/20 Unknown Previous Rx's Medication Instructions Recorded Last Taken Type QUEtiapine [SEROquel] 200 mg PO QHS #14 tablet 01/04/19 Unknown Rx risperiDONE [RisperDAL] 0.5 mg PO BID #60 tablet 10/26/19 Unknown Rx Fluconazole [Diflucan TAB] 100 mg PO QDAY #7 tablet 08/04/20 Unknown Rx clonazePAM [ Klonopin] 0.5 mg PO DAILY PRN #15 tab 08/12/20 Unknown Rx Omeprazole 40 mg PO DAILY #30 capsule 08/16/20 Unknown Rx Benzonatate [Tessalon Perles] 100 mg PO Q8HR #30 capsule 04/21/21 Unknown Rx Fluticasone [Flonase] 1 spray NS QDAY #1 bottle 02/03/21 Unknown Rx Cetirizine HCl [Zyrtec 10mg tab] 10 mg PO DAILY #30 tablet 07/22/21 Unknown Rx Fluconazole [Diflucan TAB] 200 mg PO QDAY #1 tablet 07/22/21 Unknown Rx Olopatadine HCl [Patanol 0.1%] 1 drop OP BID #5 ml 07/22/21 Unknown Rx metroNIDAZOLE [Flagyl] 500 mg PO BID 7 Days #14 tab 08/27/21 Unknown Rx Etodolac [Lodine] 400 mg PO BID #20 tablet 08/31/21 Unknown Rx Lidocaine [Lidoderm] 1 each TP BID #1 box 08/31/21 Unknown Rx Albuterol Sulfate [Proair 90 mcg IH Q4HR PRN #2 aer.pow.ba 10/09/21 Unknown Rx Respiclick] Fluticasone [Flonase] 1 spray NS QDAY #1 bottle 10/09/21 Unknown Rx Olopatadine HCl [Patanol 0.1%] 1 drop OP BID #5 ml 10/09/21 Unknown Rx Benzonatate [Tessalon Perles] 100 mg PO Q8HR PRN #12 cap 10/25/21 Unknown Rx Fluticasone [Flonase] 1 spray NS QDAY #1 bottle 10/25/21 Unknown Rx Loratadine 10 mg PO DAILY #30 tab 10/25/21 Unknown Rx guaiFENesin ER [Mucinex ER] 600 mg PO Q12H #14 tab 10/25/21 Unknown Rx Mineral Oil/Petrolatum,White 7 gm OP PRN PRN #1 oint...g. 10/28/21 Unknown Rx [Refresh Lacri-Lube Ointment] Albuterol Mdi (or & Nicu Only) 2 puff IH QID PRN #8.5 gram 11/03/21 Unknown Rx [ProAir HFA Inhaler] Amoxicillin/K Clav Tab [Augmentin 1 tab PO BID 7 Days #14 tab 03/03/22 Unknown Rx 875 mg] Ibuprofen [Motrin 800 MG tab] 800 mg PO Q8HR PRN #30 tablet 03/03/22 Unknown Rx Ketotifen Fumarate [Zaditor] 2 drop OP BID PRN #5 ml 03/03/22 Unknown Rx predniSONE [Deltasone] 20 mg PO QDAY 5 Days #5 tab 03/03/22 Unknown Rx ALBUTEROL NEB's [Proventil 0.083% 2.5 mg IH TID PRN #30 neb 03/04/22 Unknown Rx NEBS] Albuterol Mdi (or & Nicu Only) 1 puff IH Q4-6H PRN #1 inha 03/04/22 Unknown Rx [ProAir HFA Inhaler] Tobramycin 0.3% [Tobrex] 1 drop OU Q8HR #1 bottle 03/04/22 Unknown Rx FLUoxetine [PROzac] 10 mg PO QDAY #30 tablet 03/10/22 Unknown Rx risperiDONE [RisperDAL] 0.25 mg PO BID #60 tab 03/10/22 Unknown Rx Ketorolac Tromethamin 0.4%(Nf) 1 drop OP QID #1 bottle 05/02/22 Unknown Rx [Acular Ls 0.4% Ophth Elida] Tobramycin 0.3% [Tobrex] 1 drop OU Q8HR #1 bottle 05/02/22 Unknown Rx Allergies Allergy/AdvReac Type Severity Reaction Status Date / Time Sulfa (Sulfonamide Allergy Swelling Verified 05/03/22 10:59 Antibiotics) sulfamethoxazole Allergy Swelling Verified 05/03/22 10:59 [From Bactrim] trimethoprim [From Bactrim] Allergy Swelling Verified 05/03/22 10:59 ziprasidone [From Geodon] Allergy Unknown Verified 05/03/22 10:59 ED Review of Systems ROS: Stated complaint: EAR PAIN X 2 DAYS Other details as noted in HPI Comment: All other systems reviewed and negative ED Past Medical Hx - Past Medical History Hx Hypertension: No Hx Psychiatric Treatment: Yes (PTSD, BIPOLAR, ADHD,anxiety) Hx Asthma: Yes Hx HIV: Yes (Last CD4 800's 07/19/2019) Additional medical history: ezcema/ STATES "WHATEVER THEY DX ME WITH". - Surgical History Hx Coronary Stent: No Additional Surgical History: D&C. breast implants. wisdom teeth removed. tubal ligation - Social History Smoking Status: Unknown if ever smoked - Medications Home Medications: Home Medications Medication Instructions Recorded Confirmed Last Taken Type QUEtiapine [SEROquel] 200 mg PO QHS #14 tablet 01/04/19 08/04/20 Unknown Rx risperiDONE [RisperDAL] 0.5 mg PO BID #60 tablet 10/26/19 08/04/20 Unknown Rx Bictegrav/Emtricit/Tenofov Ala 1 tab PO DAILY 08/04/20 08/04/20 Unknown History [Biktarvy 50-200-25 mg (Nf)] Fluconazole [Diflucan TAB] 100 mg PO QDAY #7 tablet 08/04/20 Unknown Rx Ondansetron [Zofran Odt] 4 mg PO Q8HR 08/04/20 08/04/20 Unknown History Valacyclovir HCl [Valacyclovir] 500 mg PO DAILY 08/04/20 08/04/20 Unknown History clonazePAM [ Klonopin] 0.5 mg PO DAILY PRN #15 tab 08/12/20 Unknown Rx Omeprazole 40 mg PO DAILY #30 capsule. 08/16/20 Unknown Rx Benzonatate [Tessalon Perles] 100 mg PO Q8HR #30 capsule 02/03/21 Unknown Rx Fluticasone [Flonase] 1 spray NS QDAY #1 bottle 02/03/21 Unknown Rx Cetirizine HCl [Zyrtec 10mg tab] 10 mg PO DAILY #30 tablet 07/22/21 Unknown Rx Fluconazole [Diflucan TAB] 200 mg PO QDAY #1 tablet 07/22/21 Unknown Rx Olopatadine HCl [Patanol 0.1%] 1 drop OP BID #5 ml 07/22/21 Unknown Rx metroNIDAZOLE [Flagyl] 500 mg PO BID 7 Days #14 tab 08/27/21 Unknown Rx Etodolac [Lodine] 400 mg PO BID #20 tablet 08/31/21 Unknown Rx Lidocaine [Lidoderm] 1 each TP BID #1 box 08/31/21 Unknown Rx Albuterol Sulfate [Proair 90 mcg IH Q4HR PRN #2 aer.pow.ba 10/09/21 Unknown Rx Respiclick] Fluticasone [Flonase] 1 spray NS QDAY #1 bottle 10/09/21 Unknown Rx Olopatadine HCl [Patanol 0.1%] 1 drop OP BID #5 ml 10/09/21 Unknown Rx Benzonatate [Tessalon Perles] 100 mg PO Q8HR PRN #12 cap 10/25/21 Unknown Rx Fluticasone [Flonase] 1 spray NS QDAY #1 bottle 10/25/21 Unknown Rx Loratadine 10 mg PO DAILY #30 tab 10/25/21 Unknown Rx guaiFENesin ER [Mucinex ER] 600 mg PO Q12H #14 tab 10/25/21 Unknown Rx Mineral Oil/Petrolatum,White 7 gm OP PRN PRN #1 oint...g. 10/28/21 Unknown Rx [Refresh Lacri-Lube Ointment] Albuterol Mdi (or & Nicu Only) 2 puff IH QID PRN #8.5 gram 11/03/21 Unknown Rx [ProAir HFA Inhaler] Amoxicillin/K Clav Tab [Augmentin 1 tab PO BID 7 Days #14 tab 03/03/22 Unknown Rx 875 mg] Ibuprofen [Motrin 800 MG tab] 800 mg PO Q8HR PRN #30 tablet 03/03/22 Unknown Rx Ketotifen Fumarate [Zaditor] 2 drop OP BID PRN #5 ml 03/03/22 Unknown Rx predniSONE [Deltasone] 20 mg PO QDAY 5 Days #5 tab 03/03/22 Unknown Rx ALBUTEROL NEB's [Proventil 0.083% 2.5 mg IH TID PRN #30 neb 03/04/22 Unknown Rx NEBS] Albuterol Mdi (or & Nicu Only) 1 puff IH Q4-6H PRN #1 inha 03/04/22 Unknown Rx [ProAir HFA Inhaler] Tobramycin 0.3% [Tobrex] 1 drop OU Q8HR #1 bottle 03/04/22 Unknown Rx FLUoxetine [PROzac] 10 mg PO QDAY #30 tablet 03/10/22 Unknown Rx risperiDONE [RisperDAL] 0.25 mg PO BID #60 tab 03/10/22 Unknown Rx Ketorolac Tromethamin 0.4%(Nf) 1 drop OP QID #1 bottle 05/02/22 Unknown Rx [Acular Ls 0.4% Ophth Elida] Tobramycin 0.3% [Tobrex] 1 drop OU Q8HR #1 bottle 05/02/22 Unknown Rx ED Physical Exam - General Limitations: No Limitations General appearance: alert, in no apparent distress - Head Head exam: Present: atraumatic, normocephalic - Eye Eye exam: Present: normal appearance - ENT ENT exam: Present: mucous membranes moist, other (CCERUMEN TO EAR. NO IMPACTION. NO FB VISULIZED ) - Neck Neck exam: Present: normal inspection - Respiratory Respiratory exam: Present: normal lung sounds bilaterally. Absent: respiratory distress - Cardiovascular Cardiovascular Exam: Present: regular rate, normal rhythm. Absent: systolic murmur, diastolic murmur, rubs, gallop - GI/Abdominal GI/Abdominal exam: Present: soft, normal bowel sounds - Extremities Exam Extremities exam: Present: normal inspection - Back Exam Back exam: Present: normal inspection - Neurological Exam Neurological exam: Present: alert, oriented X3 - Psychiatric Psychiatric exam: Present: normal affect, normal mood - Skin Skin exam: Present: warm, dry, intact, normal color. Absent: rash ED Course Vital Signs 06/15/22 22:30 Temperature 98.7 F Pulse Rate 87 Respiratory 16 Rate Blood Pressure 156/104 [Left] O2 Sat by Pulse 100 Oximetry Critical care attestation.: If time is entered above; I have spent that time in minutes in the direct care of this critically ill patient, excluding procedure time. ED Disposition Clinical Impression: Excessive cerumen in right ear canal Disposition: HOME / SELF CARE / HOMELESS Is pt being admited?: No Does the pt Need Aspirin: No Condition: Stable Instructions: Ear Drops, Adult, Earwax Buildup, Adult Additional Instructions: USE DEBROX OTC TO RESOLVED YOUR CERUMEN BUILD-UP Referrals: ALLAN MCCARTY MD [Primary Care Provider] - 3-5 Days
[2022-06-16 06:54] VITALS: BP 151/94
== END 2022-06-16 06:57 | disposition home or self-care (01) ==
LOC: ED 22:25
DX: H61.21 Impacted cerumen, right ear (principal)
CPT/HCPCS: 99282

== ENCOUNTER 2022-06-21 13:48 | Emergency (ER) | payer MEDICAID ==
[2022-06-22] MEDS ORDERED: CARBAMIDE PEROXIDE 6.5% OTIC DROPS 15 ML AU NR (07:50)
--- NOTE | 2022-06-22 09:28 | Emergency Department Report ---
ED ENT HPI - General Chief complaint: Earache Stated complaint: LT EAR PAIN Time Seen by Provider: 06/22/22 07:14 Source: EMS Mode of arrival: Stretcher Limitations: No Limitations - History of Present Illness Initial comments: 42-year-old black female presents to emergency department for few day history of right ear pain. She denies fever and headache but states that her right ear just feels closed up. MD complaint: ear pain -: Gradual, days(s) (2-3) Location: R ear Severity: mild, moderate Severity scale (0 -10): 4 Quality: aching Consistency: constant Associated Symptoms: hearing loss. denies: fever, cough, gum swelling, toothache, pain with swallowing, sore throat, tinnitus, discharge from ear, rhinorrhea - Related Data Home Medications Medication Instructions Recorded Confirmed Last Taken Bictegrav/Emtricit/Tenofov Ala 1 tab PO DAILY 08/04/20 08/04/20 Unknown [Biktarvy 50-200-25 mg (Nf)] Ondansetron [Zofran Odt] 4 mg PO Q8HR 08/04/20 08/04/20 Unknown Valacyclovir HCl [Valacyclovir] 500 mg PO DAILY 08/04/20 08/04/20 Unknown Previous Rx's Medication Instructions Recorded Last Taken Type QUEtiapine [SEROquel] 200 mg PO QHS #14 tablet 01/04/19 Unknown Rx risperiDONE [RisperDAL] 0.5 mg PO BID #60 tablet 10/26/19 Unknown Rx Fluconazole [Diflucan TAB] 100 mg PO QDAY #7 tablet 08/04/20 Unknown Rx clonazePAM [ Klonopin] 0.5 mg PO DAILY PRN #15 tab 08/12/20 Unknown Rx Omeprazole 40 mg PO DAILY #30 capsule. 08/16/20 Unknown Rx Benzonatate [Tessalon Perles] 100 mg PO Q8HR #30 capsule 02/03/21 Unknown Rx Fluticasone [Flonase] 1 spray NS QDAY #1 bottle 02/03/21 Unknown Rx Cetirizine HCl [Zyrtec 10mg tab] 10 mg PO DAILY #30 tablet 07/22/21 Unknown Rx Fluconazole [Diflucan TAB] 200 mg PO QDAY #1 tablet 07/22/21 Unknown Rx Olopatadine HCl [Patanol 0.1%] 1 drop OP BID #5 ml 07/22/21 Unknown Rx metroNIDAZOLE [Flagyl] 500 mg PO BID 7 Days #14 tab 08/27/21 Unknown Rx Etodolac [Lodine] 400 mg PO BID #20 tablet 08/31/21 Unknown Rx Lidocaine [Lidoderm] 1 each TP BID #1 box 08/31/21 Unknown Rx Albuterol Sulfate [Proair 90 mcg IH Q4HR PRN #2 aer.pow.ba 10/09/21 Unknown Rx Respiclick] Fluticasone [Flonase] 1 spray NS QDAY #1 bottle 10/09/21 Unknown Rx Olopatadine HCl [Patanol 0.1%] 1 drop OP BID #5 ml 10/09/21 Unknown Rx Benzonatate [Tessalon Perles] 100 mg PO Q8HR PRN #12 cap 10/25/21 Unknown Rx Fluticasone [Flonase] 1 spray NS QDAY #1 bottle 10/25/21 Unknown Rx Loratadine 10 mg PO DAILY #30 tab 10/25/21 Unknown Rx guaiFENesin ER [Mucinex ER] 600 mg PO Q12H #14 tab 10/25/21 Unknown Rx Mineral Oil/Petrolatum,White 7 gm OP PRN PRN #1 oint...g. 10/28/21 Unknown Rx [Refresh Lacri-Lube Ointment] Albuterol Mdi (or & Nicu Only) 2 puff IH QID PRN #8.5 gram 11/03/21 Unknown Rx [ProAir HFA Inhaler] Amoxicillin/K Clav Tab [Augmentin 1 tab PO BID 7 Days #14 tab 03/03/22 Unknown Rx 875 mg] Ibuprofen [Motrin 800 MG tab] 800 mg PO Q8HR PRN #30 tablet 03/03/22 Unknown Rx Ketotifen Fumarate [Zaditor] 2 drop OP BID PRN #5 ml 03/03/22 Unknown Rx predniSONE [Deltasone] 20 mg PO QDAY 5 Days #5 tab 03/03/22 Unknown Rx ALBUTEROL NEB's [Proventil 0.083% 2.5 mg IH TID PRN #30 neb 03/04/22 Unknown Rx NEBS] Albuterol Mdi (or & Nicu Only) 1 puff IH Q4-6H PRN #1 inha 03/04/22 Unknown Rx [ProAir HFA Inhaler] Tobramycin 0.3% [Tobrex] 1 drop OU Q8HR #1 bottle 03/04/22 Unknown Rx FLUoxetine [PROzac] 10 mg PO QDAY #30 tablet 03/10/22 Unknown Rx risperiDONE [RisperDAL] 0.25 mg PO BID #60 tab 03/10/22 Unknown Rx Ketorolac Tromethamin 0.4%(Nf) 1 drop OP QID #1 bottle 05/02/22 Unknown Rx [Acular Ls 0.4% Ophth Elida] Tobramycin 0.3% [Tobrex] 1 drop OU Q8HR #1 bottle 05/02/22 Unknown Rx Ciprofloxacin HCl/Dexameth 2 drop RTEAR BID 5 Days #7.5 ml 06/22/22 Unknown Rx [Ciprodex Otic Suspension] Allergies Allergy/AdvReac Type Severity Reaction Status Date / Time Sulfa (Sulfonamide Allergy Swelling Verified 06/21/22 14:05 Antibiotics) sulfamethoxazole Allergy Swelling Verified 06/21/22 14:05 [From Bactrim] trimethoprim [From Bactrim] Allergy Swelling Verified 06/21/22 14:05 ziprasidone [From Geodon] Allergy Unknown Verified 06/21/22 14:05 ED Dental HPI - General Chief complaint: Earache Stated complaint: LT EAR PAIN Time Seen by Provider: 06/22/22 07:14 Source: EMS Mode of arrival: Stretcher Limitations: No Limitations - Related Data Home Medications Medication Instructions Recorded Confirmed Last Taken Bictegrav/Emtricit/Tenofov Ala 1 tab PO DAILY 08/04/20 08/04/20 Unknown [Biktarvy 50-200-25 mg (Nf)] Ondansetron [Zofran Odt] 4 mg PO Q8HR 08/04/20 08/04/20 Unknown Valacyclovir HCl [Valacyclovir] 500 mg PO DAILY 08/04/20 08/04/20 Unknown Previous Rx's Medication Instructions Recorded Last Taken Type QUEtiapine [SEROquel] 200 mg PO QHS #14 tablet 01/04/19 Unknown Rx risperiDONE [RisperDAL] 0.5 mg PO BID #60 tablet 10/26/19 Unknown Rx Fluconazole [Diflucan TAB] 100 mg PO QDAY #7 tablet 08/04/20 Unknown Rx clonazePAM [ Klonopin] 0.5 mg PO DAILY PRN #15 tab 08/12/20 Unknown Rx Omeprazole 40 mg PO DAILY #30 capsule. 08/16/20 Unknown Rx Benzonatate [Tessalon Perles] 100 mg PO Q8HR #30 capsule 02/03/21 Unknown Rx Fluticasone [Flonase] 1 spray NS QDAY #1 bottle 02/03/21 Unknown Rx Cetirizine HCl [Zyrtec 10mg tab] 10 mg PO DAILY #30 tablet 07/22/21 Unknown Rx Fluconazole [Diflucan TAB] 200 mg PO QDAY #1 tablet 07/22/21 Unknown Rx Olopatadine HCl [Patanol 0.1%] 1 drop OP BID #5 ml 07/22/21 Unknown Rx metroNIDAZOLE [Flagyl] 500 mg PO BID 7 Days #14 tab 08/27/21 Unknown Rx Etodolac [Lodine] 400 mg PO BID #20 tablet 08/31/21 Unknown Rx Lidocaine [Lidoderm] 1 each TP BID #1 box 08/31/21 Unknown Rx Albuterol Sulfate [Proair 90 mcg IH Q4HR PRN #2 aer.pow.ba 10/09/21 Unknown Rx Respiclick] Fluticasone [Flonase] 1 spray NS QDAY #1 bottle 10/09/21 Unknown Rx Olopatadine HCl [Patanol 0.1%] 1 drop OP BID #5 ml 10/09/21 Unknown Rx Benzonatate [Tessalon Perles] 100 mg PO Q8HR PRN #12 cap 10/25/21 Unknown Rx Fluticasone [Flonase] 1 spray NS QDAY #1 bottle 10/25/21 Unknown Rx Loratadine 10 mg PO DAILY #30 tab 10/25/21 Unknown Rx guaiFENesin ER [Mucinex ER] 600 mg PO Q12H #14 tab 10/25/21 Unknown Rx Mineral Oil/Petrolatum,White 7 gm OP PRN PRN #1 oint...g. 10/28/21 Unknown Rx [Refresh Lacri-Lube Ointment] Albuterol Mdi (or & Nicu Only) 2 puff IH QID PRN #8.5 gram 11/03/21 Unknown Rx [ProAir HFA Inhaler] Amoxicillin/K Clav Tab [Augmentin 1 tab PO BID 7 Days #14 tab 03/03/22 Unknown Rx 875 mg] Ibuprofen [Motrin 800 MG tab] 800 mg PO Q8HR PRN #30 tablet 03/03/22 Unknown Rx Ketotifen Fumarate [Zaditor] 2 drop OP BID PRN #5 ml 03/03/22 Unknown Rx predniSONE [Deltasone] 20 mg PO QDAY 5 Days #5 tab 03/03/22 Unknown Rx ALBUTEROL NEB's [Proventil 0.083% 2.5 mg IH TID PRN #30 neb 03/04/22 Unknown Rx NEBS] Albuterol Mdi (or & Nicu Only) 1 puff IH Q4-6H PRN #1 inha 03/04/22 Unknown Rx [ProAir HFA Inhaler] Tobramycin 0.3% [Tobrex] 1 drop OU Q8HR #1 bottle 03/04/22 Unknown Rx FLUoxetine [PROzac] 10 mg PO QDAY #30 tablet 03/10/22 Unknown Rx risperiDONE [RisperDAL] 0.25 mg PO BID #60 tab 03/10/22 Unknown Rx Ketorolac Tromethamin 0.4%(Nf) 1 drop OP QID #1 bottle 05/02/22 Unknown Rx [Acular Ls 0.4% Ophth Elida] Tobramycin 0.3% [Tobrex] 1 drop OU Q8HR #1 bottle 05/02/22 Unknown Rx Ciprofloxacin HCl/Dexameth 2 drop RTEAR BID 5 Days #7.5 ml 06/22/22 Unknown Rx [Ciprodex Otic Suspension] Allergies Allergy/AdvReac Type Severity Reaction Status Date / Time Sulfa (Sulfonamide Allergy Swelling Verified 06/21/22 14:05 Antibiotics) sulfamethoxazole Allergy Swelling Verified 06/21/22 14:05 [From Bactrim] trimethoprim [From Bactrim] Allergy Swelling Verified 06/21/22 14:05 ziprasidone [From Geodon] Allergy Unknown Verified 06/21/22 14:05 ED Review of Systems ROS: Stated complaint: LT EAR PAIN Other details as noted in HPI Comment: All other systems reviewed and negative Constitutional: denies: chills, fever Eyes: denies: eye discharge, vision change ENT: ear pain. denies: congestion Respiratory: denies: cough, shortness of breath Cardiovascular: denies: chest pain, palpitations Gastrointestinal: denies: nausea, vomiting Neurological: denies: headache ED Past Medical Hx - Past Medical History Hx Hypertension: No Hx Psychiatric Treatment: Yes (PTSD, BIPOLAR, ADHD,anxiety) Hx Asthma: Yes Hx HIV: Yes (Last CD4 800's 07/19/2019) Additional medical history: ezcema/ STATES "WHATEVER THEY DX ME WITH". - Surgical History Hx Coronary Stent: No Additional Surgical History: D&C. breast implants. wisdom teeth removed. tubal ligation - Social History Smoking Status: Unknown if ever smoked - Medications Home Medications: Home Medications Medication Instructions Recorded Confirmed Last Taken Type QUEtiapine [SEROquel] 200 mg PO QHS #14 tablet 01/04/19 08/04/20 Unknown Rx risperiDONE [RisperDAL] 0.5 mg PO BID #60 tablet 10/26/19 08/04/20 Unknown Rx Bictegrav/Emtricit/Tenofov Ala 1 tab PO DAILY 08/04/20 08/04/20 Unknown History [Biktarvy 50-200-25 mg (Nf)] Fluconazole [Diflucan TAB] 100 mg PO QDAY #7 tablet 08/04/20 Unknown Rx Ondansetron [Zofran Odt] 4 mg PO Q8HR 08/04/20 08/04/20 Unknown History Valacyclovir HCl [Valacyclovir] 500 mg PO DAILY 08/04/20 08/04/20 Unknown History clonazePAM [ Klonopin] 0.5 mg PO DAILY PRN #15 tab 08/12/20 Unknown Rx Omeprazole 40 mg PO DAILY #30 capsule. 08/16/20 Unknown Rx Benzonatate [Tessalon Perles] 100 mg PO Q8HR #30 capsule 02/03/21 Unknown Rx Fluticasone [Flonase] 1 spray NS QDAY #1 bottle 02/03/21 Unknown Rx Cetirizine HCl [Zyrtec 10mg tab] 10 mg PO DAILY #30 tablet 07/22/21 Unknown Rx Fluconazole [Diflucan TAB] 200 mg PO QDAY #1 tablet 07/22/21 Unknown Rx Olopatadine HCl [Patanol 0.1%] 1 drop OP BID #5 ml 07/22/21 Unknown Rx metroNIDAZOLE [Flagyl] 500 mg PO BID 7 Days #14 tab 08/27/21 Unknown Rx Etodolac [Lodine] 400 mg PO BID #20 tablet 08/31/21 Unknown Rx Lidocaine [Lidoderm] 1 each TP BID #1 box 08/31/21 Unknown Rx Albuterol Sulfate [Proair 90 mcg IH Q4HR PRN #2 aer.pow.ba 10/09/21 Unknown Rx Respiclick] Fluticasone [Flonase] 1 spray NS QDAY #1 bottle 10/09/21 Unknown Rx Olopatadine HCl [Patanol 0.1%] 1 drop OP BID #5 ml 10/09/21 Unknown Rx Benzonatate [Tessalon Perles] 100 mg PO Q8HR PRN #12 cap 10/25/21 Unknown Rx Fluticasone [Flonase] 1 spray NS QDAY #1 bottle 10/25/21 Unknown Rx Loratadine 10 mg PO DAILY #30 tab 10/25/21 Unknown Rx guaiFENesin ER [Mucinex ER] 600 mg PO Q12H #14 tab 10/25/21 Unknown Rx Mineral Oil/Petrolatum,White 7 gm OP PRN PRN #1 oint...g. 10/28/21 Unknown Rx [Refresh Lacri-Lube Ointment] Albuterol Mdi (or & Nicu Only) 2 puff IH QID PRN #8.5 gram 11/03/21 Unknown Rx [ProAir HFA Inhaler] Amoxicillin/K Clav Tab [Augmentin 1 tab PO BID 7 Days #14 tab 03/03/22 Unknown Rx 875 mg] Ibuprofen [Motrin 800 MG tab] 800 mg PO Q8HR PRN #30 tablet 03/03/22 Unknown Rx Ketotifen Fumarate [Zaditor] 2 drop OP BID PRN #5 ml 03/03/22 Unknown Rx predniSONE [Deltasone] 20 mg PO QDAY 5 Days #5 tab 03/03/22 Unknown Rx ALBUTEROL NEB's [Proventil 0.083% 2.5 mg IH TID PRN #30 neb 03/04/22 Unknown Rx NEBS] Albuterol Mdi (or & Nicu Only) 1 puff IH Q4-6H PRN #1 inha 03/04/22 Unknown Rx [ProAir HFA Inhaler] Tobramycin 0.3% [Tobrex] 1 drop OU Q8HR #1 bottle 03/04/22 Unknown Rx FLUoxetine [PROzac] 10 mg PO QDAY #30 tablet 03/10/22 Unknown Rx risperiDONE [RisperDAL] 0.25 mg PO BID #60 tab 03/10/22 Unknown Rx Ketorolac Tromethamin 0.4%(Nf) 1 drop OP QID #1 bottle 05/02/22 Unknown Rx [Acular Ls 0.4% Ophth Elida] Tobramycin 0.3% [Tobrex] 1 drop OU Q8HR #1 bottle 05/02/22 Unknown Rx Ciprofloxacin HCl/Dexameth 2 drop RTEAR BID 5 Days #7.5 ml 06/22/22 Unknown Rx [Ciprodex Otic Suspension] ED Physical Exam - General Limitations: No Limitations General appearance: alert, in no apparent distress - Head Head exam: Present: atraumatic, normocephalic - Eye Eye exam: Present: normal appearance. Absent: conjunctival injection - Expanded ENT Exam Expanded TM/Canal exam: Cerumen Impaction: Right TM - Neck Neck exam: Present: normal inspection. Absent: lymphadenopathy - Respiratory Respiratory exam: Absent: respiratory distress - Cardiovascular Cardiovascular Exam: Present: regular rate - GI/Abdominal GI/Abdominal exam: Absent: distended - Extremities Exam Extremities exam: Present: normal inspection - Back Exam Back exam: Present: normal inspection - Neurological Exam Neurological exam: Present: alert, oriented X3, normal gait - Psychiatric Psychiatric exam: Present: normal affect, normal mood - Skin Skin exam: Present: warm, dry, intact, normal color ED Course Vital Signs 06/21/22 14:00 Temperature 98.5 F Pulse Rate 77 Respiratory 18 Rate Blood Pressure 140/78 [Left] O2 Sat by Pulse 99 Oximetry - Ear Wax Removal Right Ear Cerumenolytic Used: Cerumenex Ear Canal Irrigated by: RN Ear Canal Irrigated With: warm saline using syringe/angiocath Results: Re-examined: some cerumen remains TM Visible: TM(s) intact, normal appe Ear Canal: atraumatic, other (Erythema noted) Patient Tolerated Procedure: well Complications: no problems ED Medical Decision Making - Medical Decision Making 42-year-old black female presents to emergency department for few day history of right ear pain. She denies fever and headache but states that her right ear just feels closed up. Earwax removal per my procedure note. Patient discharged home with Ciprodex to use as directed. She is advised to follow-up with ENT if worsening symptoms and return to the emergency department as needed. She verbalizes understanding of and agreement with plan of care. Critical care attestation.: If time is entered above; I have spent that time in minutes in the direct care of this critically ill patient, excluding procedure time. ED Disposition Clinical Impression: Impacted cerumen of right ear Disposition: HOME / SELF CARE / HOMELESS Is pt being admited?: No Does the pt Need Aspirin: No Condition: Stable Instructions: Earwax Buildup, Adult, Ear Drops, Adult, [id number], Ear Irrigation Additional Instructions: Use medication as prescribed. Follow-up with your primary care provider if no improvement or worsening symptoms. Return to the emergency department as needed. Prescriptions: Ciprofloxacin HCl/Dexameth [Ciprodex Otic Suspension] 2 drop RTEAR BID 5 Days #7.5 ml Referrals: SHIN WEISS MD [Referring] - 3-5 Days Forms: Work/School Release Form(ED) Time of Disposition: 09:27
[2022-06-22 10:26] VITALS: BP 111/61
== END 2022-06-22 10:47 | disposition home or self-care (01) ==
LOC: ED 13:48
DX: H61.21 Impacted cerumen, right ear (principal)
CPT/HCPCS: 99282; 99283

== ENCOUNTER 2022-06-29 19:53 | Emergency (ER) | payer MEDICAID ==
[2022-06-29 20:00] VITALS: BP 120/76
== END 2022-06-29 21:45 | disposition left against medical advice (07) ==
LOC: ED 19:53
DX: H92.09 Otalgia, unspecified ear (principal); Z53.21 Procedure and treatment not carried out due to patient leaving prior to being seen by health care provider

== ENCOUNTER 2022-07-10 13:02 | Emergency (ER) | payer MEDICAID ==
[2022-07-10 13:18] VITALS: BP 122/78
--- NOTE | 2022-07-10 13:25 | Event Note ---
ED Screening Note Date of service: 07/10/22 Time: 13:22 ED Screening Note: This initial assessment/diagnostic orders/clinical plan/treatment(s) is/are subject to change based on patients health status, clinical progression and re- assessment by fellow clinical providers in the ED. Further treatment and workup at subsequent clinical providers discretion. Patient/guardian urged not to elope from the ED as their condition may be serious if not clinically assessed and managed. Patient discharged from [facility] and transported here. Seen there for SI - no plans. States they did not address some bites on her feet and she is still suicidal. Initial orders include:
== END 2022-07-11 03:03 | disposition left against medical advice (07) ==
LOC: ED 13:02
DX: R45.851 Suicidal ideations (principal); R45.850 Homicidal ideations; Z53.21 Procedure and treatment not carried out due to patient leaving prior to being seen by health care provider